=== PATIENT | female | born 1980 | race African-American/Black ===

== ENCOUNTER → 2016-09-11 | Outpatient (CLI) | payer MEDICAID | LOC: WI 08:31 | PROVIDERS: ATTEND Specialist | DX: Z12.31 Encounter for screening mammogram for malignant neoplasm of breast (principal); R92.0 Mammographic microcalcification found on diagnostic imaging of breast; Z85.3 Personal history of malignant neoplasm of breast; Z90.11 Acquired absence of right breast and nipple | CPT/HCPCS: G0202-52 ==

== ENCOUNTER → 2016-09-18 | Outpatient (CLI) | payer MEDICAID | LOC: WI 11:52 | PROVIDERS: ATTEND Specialist | DX: R92.2 Inconclusive mammogram (principal) | CPT/HCPCS: G0204-52 ==

== ENCOUNTER 2016-09-30 04:24 | Emergency (ER) | payer MEDICAID ==
[2016-09-30 04:57] LABS: ABSOLUTE BASOPHILS # (AUTO) 0.1 10^3/uL (0.0-0.2); ABSOLUTE EOSINOPHILS # (AUTO) 0.3 10^3/uL (0.0-0.6); ABSOLUTE LYMPHOCYTES (AUTO) 2.5 10^3/uL (0.5-4.7); ABSOLUTE NEUT (AUTO) 5.1 10^3/uL (1.7-8.2); BASOPHILS % (AUTO) 0.8 % (0-2); EOSINOPHILS % (AUTO) 2.8 % (0-6); HEMATOCRIT 38.7 % (36.0-47.0); HEMOGLOBIN 13.1 g/dL (12.0-15.5); HGB HCT DIFFERENCE 0.6; LYMPHOCYTES % (AUTO) 27.9 % (13-45); MEAN CORPUSCULAR HEMOGLOBIN 32.5 pg (27.0-33.4); MEAN CORPUSCULAR HGB CONC 33.9 g/dL (32.0-36.0); MEAN CORPUSCULAR VOLUME 96 fl (80-97); MONOCYTES % (AUTO) 11.2 % (3-13); RED BLOOD COUNT 4.04 10^6/uL (3.72-5.28); RED CELL DISTRIBUTION WIDTH 13.9 % (11.5-14.0); SEGMENTED NEUTROPHILS % (AUTO) 57.3 % (42-78); WHITE BLOOD COUNT 8.9 10^3/uL (4.0-10.5)
[2016-09-30 05:12] LABS: ALANINE AMINOTRANSFERASE 31 U/L (9-52); ALBUMIN 4.1 g/dL (3.5-5.0); ALKALINE PHOSPHATASE 62 U/L (38-126); ANION GAP 14 (5-19); ASPARTATE AMINO TRANSFERASE 25 U/L (14-36); BILIRUBIN,DIRECT 0.1 mg/dL (0.0-0.4); BILIRUBIN,TOTAL 0.5 mg/dL (0.2-1.3); BLOOD UREA NITROGEN 11 mg/dL (7-20); CALCIUM 9.4 mg/dL (8.4-10.2); CARBON DIOXIDE 21 mmol/L (22-30); CHLORIDE 108 mmol/L (98-107); CREATININE RESULT 0.68 mg/dL (0.52-1.25); GLUCOSE 111 mg/dL (75-110); POTASSIUM 4.3 mmol/L (3.6-5.0); SODIUM 142.7 mmol/L (137-145)
[2016-09-30 05:18] LABS: PROTHROMBIN TIME 13.4 SEC (11.4-15.4)
[2016-09-30 05:55] LABS: APPEARANCE,URINE SLIGHTLY-CLOUDY; BILIRUBIN,URINE NEGATIVE (NEGATIVE); GLUCOSE, URINE NEGATIVE (NEGATIVE); KETONES,URINE NEGATIVE (NEGATIVE); LEUKOCYTE ESTERASE,URINE MODERATE (NEGATIVE); NITRITE,URINE NEGATIVE (NEGATIVE); PROTEIN,URINE NEGATIVE (NEGATIVE); URINE SPECIFIC GRAVITY 1.029
[2016-09-30] MEDS ORDERED: HYDROMORPHONE HCL INJ/PF 2 MG/ML AMPULE IV ONE (06:13)
[2016-09-30] MEDS ORDERED: ONDANSETRON HCL INJ/PF 4 MG/2 ML SDV IV ONE ×2 (06:14→07:34)
--- NOTE | 2016-09-30 06:15 | ER Document Report ---
ED Syncope and Near Syncope - General Mode of Arrival: Ambulatory Information source: Patient TRAVEL OUTSIDE OF THE [place] IN LAST 30 DAYS: No - HPI Patient complains to provider of: Fainting Episode witnessed (by whom): No Symptoms prior to episode: Headache Similar symptoms previously: No Recently seen / treated by doctor: No <TAMMIE RUTHERFORD - Last Filed: 09/30/16 14:17> <ERIKA TIRADOMY - Last Filed: 10/01/16 05:24> - General Chief Complaint: Passed Out Prior to Arrival Stated Complaint: HEADACHE, POSSIBLE SYNCOPE Time Seen by Provider: 09/30/16 05:58 Notes: Patient is a 36 year old female presenting to the ED for headache, blurry vision , and syncopal event. Patient states she has had a headache for 2 days. Patient states her headache came on all of a sudden and has been constant. Patient has taken Excedrin with no relief. Patient states she used to get headaches only during chemo for her breast cancer; this current headache is way worse than those or any previous headache and patient's last chemo treatment was in 2012. Patient also has had some blurry vision, photophobia, and nausea; patient's pain is in the top and front of her head. Patient also had a possible syncopal event this morning. Patient got out of bed this morning and states she doesn't remember much more. Patient's states he found her on the floor in the bed room, 1 hour prior to arrival, and does not know how long she was down. Patient states she does not recall this event. Patient's also states that she was not acting herself and "didn't remember who he was" at one point. Patient does not recall this event either. Patient has 2 aunts that from aneurysms in their 20s and 30s. Patient also has a family history of a tumor. (TAMMIE RUTHERFORD) - Related Data Allergies/Adverse Reactions: Adhesive Bandage * [Adhesive Bandage] Allergy (Mild, Verified 05/21/16 09:48) Generalized rash adhesive tape [Adhesive Tape] Allergy (Mild, Verified 05/21/16 09:48) Generalized rash Past Medical History - General Information source: Patient - Social History Smoking Status: Unknown if Ever Smoked Chew tobacco use (# tins/day): No Frequency of alcohol use: None Drug Abuse: None Family History: None Patient has suicidal ideation: No Patient has homicidal ideation: No Pulmonary Medical History: Reports: Hx Asthma - TEENAGER Malignancy Medical History: Reports: Hx Breast Cancer - right, had mastectomy, last mammogram 1 year ago in left breast, neg GI Medical History: Reports: Hx Gastroesophageal Reflux Disease Musculoskeltal Medical History: Reports Hx Fibromyalgia Past Surgical History: Reports: Hx Section - x2, Hx Cholecystectomy, Hx Mastectomy - Right right mastectomy with axillary node dissection, Hx Tonsillectomy, Hx Tubal Ligation, Hx Vascular Surgery - Left chest wall port - Immunizations Hx Diphtheria, Pertussis, Tetanus Vaccination: Yes Hx Pneumococcal Vaccination: 04/30/13 <TAMMIE RUTHERFORD - Last Filed: 09/30/16 14:17> Review of Systems - Review of Systems Constitutional: No symptoms reported EENT: See HPI, Blurred vision Cardiovascular: No symptoms reported Respiratory: No symptoms reported Gastrointestinal: See HPI, Nausea Genitourinary: No symptoms reported Female Genitourinary: No symptoms reported Musculoskeletal: No symptoms reported Skin: No symptoms reported Hematologic/Lymphatic: No symptoms reported Neurological/Psychological: See HPI, Headaches -: Yes All other systems reviewed and negative <TAMMIE RUTHERFORD - Last Filed: 09/30/16 14:17> Physical Exam - Vital signs Interpretation: Normal - General General appearance: Alert, Other - patient is holding her head and writhing around In distress: Mild - HEENT Head: Normocephalic, Atraumatic Eyes: Normal Conjunctiva: Normal Cornea: Normal Eyelashes: Normal Pupils: PERRL Mucous membranes: Moist Neck: Normal - and non tender - Respiratory Respiratory status: No respiratory distress Chest status: Nontender Breath sounds: Normal Chest palpation: Normal - Cardiovascular Rhythm: Regular Heart sounds: Normal auscultation Murmur: No - Abdominal Inspection: Normal Distension: No distension Bowel sounds: Normal Tenderness: Nontender Organomegaly: No organomegaly - Back Back: Normal, Nontender - Extremities General upper extremity: Normal inspection, Normal ROM, Normal strength General lower extremity: Normal inspection, Normal ROM, Normal strength - Neurological Neuro grossly intact: Yes Cognition: Normal Orientation: AAOx4 [place] Coma Scale Eye Opening: Spontaneous [place] Coma Scale Verbal: Oriented [place] Coma Scale Motor: Obeys Commands [place] Coma Scale Total: 15 Speech: Normal - Psychological Associated symptoms: Normal affect, Normal mood - Skin Skin Temperature: Warm Skin Moisture: Dry <TAMMIE RUTHERFORD - Last Filed: 09/30/16 14:17> Course - Laboratory Result Diagrams: 09/30/16 04:45 09/30/16 04:45 - Consults [facility] transfer line Time consulted: 07:47 Dr. Cooper Time consulted: 07:58 [facility] Time consulted: 08:07 Consulted provider: will come to ER <TAMMIE RUTHERFORD - Last Filed: 09/30/16 14:17> - Laboratory Result Diagrams: 09/30/16 04:45 09/30/16 04:45 <LENNOX TIRADO - Last Filed: 10/01/16 05:24> - Re-evaluation Re-evalutation: 09/30/16 08:15 Patient presents emergency Department chief complaint worse headache of her life onset 2 days ago progressively worse woke her up in the middle of night she is holding her head and writhing around says her vision is blurred does not have a history of headaches in the past. She has 2 aunts of brain aneurysms in their 20s. Also states that there is some sort of a tumor that runs in her family as well. She has a profound photophobia and had a syncopal event associated with this. She's been having intermittent syncopal events since 2011 but never associated with a headache. She denies any chest pain shortness of breath on examination significant amount of pain no neurological deficits speech is intact. Blood pressure is normotensive. Mediate concerns for subarachnoid hemorrhage especially given the fact that her headache has been going on for greater than 2 days which increases your risk of not seeing on the CT scan. Consent obtained for medicating her for lumbar puncture explaining the risks and benefits. CT was negative lumbar puncture was performed talked to the ground lab personally said she has to run immediately can take an hour. At this point given my concerns of ruptured aneurysm and family history I called the neurosurgeon at [facility] Dr. Cooper told him my concerns. We tried to send her by helicopter with helicopters are not flying we: Local EMS service they said they couldn't get a truck here till 9:30 I called [facility] and asked him to take a truck at a service and they said they would be here right away. Patient did not get improvement with Dilaudid the got some improvement with the fentanyl. Still describes severe headache but it's definitely improved no persistent neurological deficits able to maintain her own airway and is conversing right now no need for emergent intubation. 09/30/16 08:35 Transport team has arrived and patient is stable for transport headache is improved no airway compromise ongoing concerns we have not received the LP back yet ongoing concerns for aneurysm patient transferred to the neurosurgeon unit. 10/01/16 05:23 (LENNOX TIRADO) - Vital Signs Vital signs: Temp Pulse Resp BP Pulse Ox 98.7 F 72 19 108/82 100 09/30/16 08:35 09/30/16 04:30 09/30/16 08:21 09/30/16 08:21 09/30/16 04:30 - Laboratory Laboratory results interpreted by me: 09/30/16 09/30/16 09/30/16 04:45 05:29 07:40 Chloride 108 H Carbon Dioxide 21 L Glucose 111 H Urine Urobilinogen 2.0 H Ur Leukocyte Esterase MODERATE H CSF WBC 6 H CSF RBC 1537 H - Consults [facility] transfer line Reason for consultation: 09/30/16 07:47 Contacted [facility] transfer center to speak with neurology about patient. They will call back. (TAMMIE RUTHERFORD) Dr. Cooper Reason for consultation: 09/30/16 07:58 [facility] called back; Dr. Randall Cooper accepted the patient for transfer to [facility] neurology. (TAMMIE RUTHERFORD) [facility] Reason for consultation: 09/30/16 08:07 Contacted [facility] to see if they could transport patient to [facility]; transport would not be available until at a later time. Spoke to Da who states that a team would arrive soon to the ED to transport patient to [facility]. (TAMMIE RUTHERFORD) Procedures - Lumbar Puncture Lumbar puncture Time completed: 07:42 Consent obtained: Yes Lumbar puncture pre-procedure: Betadine prep applied, Sterile drapes applied Patient position: Sitting Lumbar puncture location: L4-L5 innerspace Anesthetic type: 1% Lidocaine mL's of anesthetic: 10 Amount/type of drainage: 10 mL per tube, 4 tubes, clear colorless fluids Number of attempts: 1 Complications: No <TAMMIE RUTHERFORD - Last Filed: 09/30/16 14:17> Critical Care Note - Critical Care Note Total time excluding time spent on procedures (mins): 65 <LENNOX TIRADO - Last Filed: 10/01/16 05:24> Discharge <TAMMIE RUTHERFORD - Last Filed: 09/30/16 14:17> <LENNOX TIRADO - Last Filed: 10/01/16 05:24> - Discharge Clinical Impression: acute onset worst headache of life Syncope Qualifiers: Syncope type: unspecified Qualified Code(s): R55 - Syncope and collapse Condition: Stable Disposition: [facility] Referrals: ANDRA CASTELLON MD [Primary Care Provider] - Follow up as needed Scribe Attestation: 09/30/16 08:20 I personally performed the services described in the documentation reviewed the documentation recorded by my scribe in my presence and it accurately and completely records my words and actions (LENNOX TIRADO) Scribe Documentation - Scribe Written by Scribe:: Tammie Rutherford 09/30/16 7:50 acting as scribe for :: Abrahan <TAMMIE RUTHERFORD - Last Filed: 09/30/16 14:17>
[2016-09-30] MEDS ORDERED: FENTANYL CITRATE INJ/PF 100 MCG/2 ML AMPUL IV ONE ×2 (07:27→07:42)
[2016-09-30] MEDS ORDERED: ONDANSETRON HCL INJ/PF 4 MG/2 ML SDV ONE (07:36)
[2016-09-30] MEDS ORDERED: FENTANYL CITRATE INJ/PF 100 MCG/2 ML AMPUL ONE (07:43)
[2016-09-30] MEDS ORDERED: METHYLPREDNISOLONE INJ 125 MG/2 ML SDV IV ONE (08:03)
[2016-09-30 08:23] LABS: RBC AVERAGE 307.5; RBC DILUENT USED NONE USED; RBC DILUTION FACTOR 1; RBC SIDE 1 307; RBC SIDE 2 308; TOTAL RBC SQUARES COUNTED 50
[2016-09-30 08:34] VITALS: BP 108/82
[2016-09-30 08:35] LABS: APPEARANCE TUBE 1 SLIGHTLY HAZY; APPEARANCE TUBE 2 CLEAR; APPEARANCE TUBE 3 CLEAR
[2016-09-30 08:36] LABS: WHITE BLOOD CELL,CSF 6 /uL (0-5)
[2016-09-30 08:51] LABS: APPEARANCE TUBE 1 SLIGHTLY HAZY; APPEARANCE TUBE 2 CLEAR; APPEARANCE TUBE 3 CLEAR; RBC AVERAGE 6.5; RBC DILUENT USED NONE USED; RBC DILUTION FACTOR 1; RBC SIDE 1 7; RBC SIDE 2 6; TOTAL RBC SQUARES COUNTED 225
[2016-09-30 08:52] LABS: WHITE BLOOD CELL,CSF 2 /uL (0-5)
--- NOTE | 2016-09-30 16:55 | EKG REPORT ---
SEVERITY:- NORMAL ECG - SINUS RHYTHM : Confirmed by: Robina Chavez MD 30-Sep-2016 16:54:23
== END 2016-09-30 08:43 | disposition short-term general hospital (02) ==
LOC: ER 04:24
PROC: 009U3ZX Drainage of Spinal Canal, Percutaneous Approach, Diagnostic (ICD-10-PCS; principal; 2016-09-30)
DX: R55 Syncope and collapse (principal); R51 Headache
CPT/HCPCS: 93005; 96376; 99291; 96374; 96375; 36415; 85025; 85610; 89050; 81025; 80053; 81001; 70450; 93010; 62270; J3010; J2930; J1170; J2405

== ENCOUNTER → 2016-10-18 | Day surgery (SDC) | payer MEDICAID ==
[~2016-10-18] MED LIST: LIDOCAINE 1%/EPINEPHRINE INJ 20 ML VIAL ONE
--- NOTE | 2016-10-18 10:53 | Operative Report ---
Operative Report DATE OF SURGERY: 10/18/16 PREOPERATIVE DIAGNOSIS: Cluster microcalcifications outer lower quadrant left breast; history of contralateral breast cancer POSTOPERATIVE DIAGNOSIS: Same OPERATION: 1. Stereotactically directed incision myotomy core biopsies lower outer quadrant left breast. 2. Placement of clip marker left breast. 3. Interpretation of digital mammography and specimen radiograph SURGEON: ZHOU ASNDERS ANESTHESIA: Local TISSUE REMOVED OR ALTERED: Multiple cores left breast COMPLICATIONS: none ESTIMATED BLOOD LOSS: scant INTRAOPERATIVE FINDINGS: See below PROCEDURE: The patient was taken to the stereotactic room and radiology department and also more hospital with a left breast was placed in compression. The target cluster of microcalcifications was identified using a caudocranial approach. Surgical plan and surgical timeout were conducted. Surface of the left breast was prepped and draped with chlorhexidine. Skin was anesthetized with 1% lidocaine without epinephrine. A mammotomy was made with 11 blade and mammotome advanced to the appropriate depth using +15 and -15 stereotactic views. We then deployed the locking device, and repeated the mammograms. The mammotome was in appropriate proximity to the target tissue. We Obtain approximately 10 cores in a circumferential fashion. Cores were placed on a last dictation photographed with the portable digital radio graphic machine which confirmed acquisition of the target microcalcifications. We then deployed a clip marker into the cavity after removal of the mammotome. Postbiopsy imaging of the breast confirmed appropriate clip deployment in the biopsy cavity. Introducer sheath was removed from the left breast, breast placed into compression Discharge instructions provided. Postop procedure well.
--- NOTE | 2016-10-18 10:55 | PDOC DISCHARGE SUMMARY ---
Discharge Summary (SDC) - Discharge Final Diagnosis: Microcalcifications left breast Date of Surgery: 10/18/16 Discharge Date: 10/18/16 Condition: Good Treatment or Instructions: 1. Written instructions provided to the patient 2. Patient to take Tylenol or Motrin when necessary pain 3. Patient to follow-up with also surgical clinic in approximately 1-2 weeks. Discharge Diet: As Tolerated Discharge Activity: Activity As Tolerated Home Care Assistance: None Needed Report the Following to Your Physician Immediately: Shortness of Breath, Increase in Pain, Fever over 101 Degrees
== END ==
LOC: RAD 08:47
PROVIDERS: ATTEND Surgery
PROC: 0HBU3ZX Excision of Left Breast, Percutaneous Approach, Diagnostic (ICD-10-PCS; principal; 2016-10-18)
DX: R92.0 Mammographic microcalcification found on diagnostic imaging of breast (principal); M79.7 Fibromyalgia; Z87.891 Personal history of nicotine dependence; Z79.899 Other long term (current) drug therapy; Z85.3 Personal history of malignant neoplasm of breast
CPT/HCPCS: 88305 ×2; 88342; 19081; J3490

== ENCOUNTER 2017-01-11 05:20 | Emergency (ER) | payer MEDICAID ==
[2017-01-11] MEDS ORDERED: IPRATROPIUM/ALBUTEROL 0.5-2.5 MG/3 ML AMPUL NEB ONE (05:35)
[2017-01-11] MEDS ORDERED: ALBUTEROL SULFATE 0.083% NEB 2.5 MG/3 ML AMPUL NEB SCH (05:50)
[2017-01-11 05:59] LABS: ABSOLUTE BASOPHILS # (AUTO) 0.1 10^3/uL (0.0-0.2); ABSOLUTE EOSINOPHILS # (AUTO) 0.2 10^3/uL (0.0-0.6); ABSOLUTE MONOCYTES (AUTO) 1.1 10^3/uL (0.1-1.4); ABSOLUTE NEUT (AUTO) 5.4 10^3/uL (1.7-8.2); BASOPHILS % (AUTO) 1.1 % (0-2); EOSINOPHILS % (AUTO) 2.1 % (0-6); HEMOGLOBIN 12.9 g/dL (12.0-15.5); HGB HCT DIFFERENCE 0.7; MEAN CORPUSCULAR HEMOGLOBIN 32.6 pg (27.0-33.4); MEAN CORPUSCULAR VOLUME 96 fl (80-97); MONOCYTES % (AUTO) 11.1 % (3-13); RED BLOOD COUNT 3.96 10^6/uL (3.72-5.28); RED CELL DISTRIBUTION WIDTH 13.6 % (11.5-14.0); SEGMENTED NEUTROPHILS % (AUTO) 54.7 % (42-78); WHITE BLOOD COUNT 9.8 10^3/uL (4.0-10.5)
[2017-01-11 06:16] LABS: ALANINE AMINOTRANSFERASE 27 U/L (9-52); ALBUMIN 3.6 g/dL (3.5-5.0); ALKALINE PHOSPHATASE 60 U/L (38-126); ANION GAP 11 (5-19); ASPARTATE AMINO TRANSFERASE 18 U/L (14-36); BILIRUBIN,DIRECT 0.2 mg/dL (0.0-0.4); BILIRUBIN,TOTAL 0.5 mg/dL (0.2-1.3); BLOOD UREA NITROGEN 7 mg/dL (7-20); CALCIUM 8.9 mg/dL (8.4-10.2); CARBON DIOXIDE 21 mmol/L (22-30); CHLORIDE 110 mmol/L (98-107); CREATINE KINASE 211 U/L (30-135); GLUCOSE 95 mg/dL (75-110); POTASSIUM 4.2 mmol/L (3.6-5.0); SODIUM 142.1 mmol/L (137-145); TOTAL PROTEIN 6.7 g/dL (6.3-8.2)
--- NOTE | 2017-01-11 06:24 | RADIOLOGY REPORT (SQ) ---
EXAM DESCRIPTION: CHEST SINGLE VIEW COMPLETED DATE/TIME: 01/11/2017 6:12 am REASON FOR STUDY: SOB/CP COMPARISON: 03/23/2016. EXAM PARAMETERS: NUMBER OF VIEWS: One view. TECHNIQUE: Single frontal radiographic view of the chest acquired. RADIATION DOSE: NA LIMITATIONS: None. FINDINGS: LUNGS AND PLEURA: No opacities, masses or pneumothorax. No pleural effusion. MEDIASTINUM AND HILAR STRUCTURES: No masses. Contour normal. HEART AND VASCULAR STRUCTURES: Heart normal in size. Normal vasculature. BONES: No acute findings. HARDWARE: None in the chest. OTHER: No other significant finding. IMPRESSION: NO ACUTE RADIOGRAPHIC FINDING IN THE CHEST. TECHNICAL DOCUMENTATION: JOB ID: [id number]
[2017-01-11 06:27] LABS: CREATINE KINASE MB 0.66 ng/mL (<4.55); TROPONIN I < 0.012 ng/mL
[2017-01-11] MEDS ORDERED: LIDOCAINE 2% VISCOUS SOLN 20 ML UDCUP PO ONE (07:15)
[2017-01-11] MEDS ORDERED: METOCLOPRAMIDE HCL ORAL SOLN 10 MG/10 ML UDCUP PO ONE (07:15)
[2017-01-11] MEDS ORDERED: MAG HYDROX/AL HYDROX/SIMETH SUSP 30 ML UDCUP PO ONE (07:15)
--- NOTE | 2017-01-11 08:10 | EKG REPORT ---
SEVERITY:- BORDERLINE ECG - SINUS RHYTHM PROBABLE LEFT ATRIAL ABNORMALITY : Confirmed by: Lakhwinder George MD 11-Jan-2017 08:09:22
--- NOTE | 2017-01-11 08:58 | RADIOLOGY REPORT (SQ) ---
EXAM DESCRIPTION: CTA CHEST COMPLETED DATE/TIME: 01/11/2017 8:32 am REASON FOR STUDY: elevated dimer COMPARISON: CT chest exams 11/30/2015, 07/28/2014, 03/23/2013, 10/16/2011, 12/28/2011 TECHNIQUE: CT scan of the chest performed using helical scanning technique with dynamic intravenous contrast injection. Images reviewed with lung, soft tissue and bone windows. Reconstructed coronal and sagittal MPR images reviewed. Additional 3 dimensional post-processing performed to develop Maximal Intensity Projection images (AR P). All images stored on PACS. All CT scanners at this facility use dose modulation, iterative reconstruction, and/or weight based d osing when appropriate to reduce radiation dose to as low as reasonably achievable (ALARA). [facility]: Dose Right [facility]: CareDose [facility]: Dose Right [facility]: Teradose 4D [facility]: [employer] CONTRAST TYPE AND DOSE: 78 mL Isovue 370- low osmolar. RENAL FUNCTION: Creatinine 0.7 RADIATION DOSE: Up-to-date CT equipment and radiation dose reduction techniques were employed. CTDIv ol: 15.4 - 29.8 mGy. DLP: 596 mGy-cm. . LIMITATIONS: None. FINDINGS: LUNGS AND PLEURA: There are too numerous to count pulmonary nodules worrisome for metastat ic disease. Largest nodules on the right side are as follows: 1.6 x 0.9 cm pleural-based nodule right posterior lung apex axial image 16 1.3 cm nodule right lung apex axial image 12 9 mm nodule posterior right lung base axial image 83 Largest nodules on the left side are as follows: 1.3 x 0.8 cm superior segment left lower lobe adjacent to the major fissure axial image 40 1.8 x 1 cm lingular nodule adjacent to the cardiac apex axial image 72 1 cm left lower lobe nodule axial image 74 1 cm left lower lobe nodule axial image 77. No pneumothorax. No pleural effusions. No dense consolidation worrisome for acute pneumonia. AORTA AND GREAT VESSELS: No aneurysm or dissection. HEART: No pericardial effusion. PULMONARY ARTERIES: No emboli visualized in the main pulmonary arteries or the segmental branches. HILAR AND MEDIASTINAL STRUCTURES: No identified masses or abnormal nodes. HARDWARE: Right mastectomy with breast implant. Clips right upper quadrant post cholecystectomy UPPER ABDOMEN: Right upper quadrant clips post cholecystectomy THYROID AND OTHER SOFT TISSUES: No masses. No adenopathy. BONES: No acute or significant finding. 3D MIPS: Confirm above findings. OTHER: No other significant finding. IMPRESSION: No CT angio evidence of pulmonary emboli. Multiple pulmonary nodules worrisome for metastatic disease given history of breast cancer TECHNICAL DOCUMENTATION: JOB ID: [id number] Quality ID # [id number]: Final reports with documentation of one or more dose reduction techniques (e.g., Au tomated exposure control, adjustment of the mA and/or kV according to patient size, use of iterative reconstruction technique) 2010 [employer]- All Rights Reserved
[2017-01-11 12:17] VITALS: BP 126/86
--- NOTE | 2017-01-11 12:17 | ER Document Report ---
ED General - General Chief Complaint: Chest Pain Stated Complaint: CHEST PAIN Time Seen by Provider: 01/11/17 06:10 TRAVEL OUTSIDE OF THE [place] IN LAST 30 DAYS: No - HPI Patient complains to provider of: Chest pain shortness of breath Notes: Patient coming in with a history of breast cancer cancer free since 2012 states ongoing for the last 2 weeks cough chest pressure chest pain along with shortness of breath. Denies any recent travel. Patient denies any fevers chills nausea vomiting patient otherwise states she just feels unwell. Patient looks to be in no distress upon my evaluation. - Related Data Allergies/Adverse Reactions: Adhesive Bandage * [Adhesive Bandage] Allergy (Mild, Verified 05/21/16 09:48) Generalized rash adhesive tape [Adhesive Tape] Allergy (Mild, Verified 05/21/16 09:48) Generalized rash Past Medical History - Social History Smoking Status: Former Smoker Frequency of alcohol use: Social Drug Abuse: None Family History: None Patient has suicidal ideation: No Patient has homicidal ideation: No - Past Medical History Cardiac Medical History: Denies: Hx Coronary Artery Disease, Hx Heart Attack, Hx Hypertension Pulmonary Medical History: Reports: Hx Asthma - TEENAGER Denies: Hx Bronchitis, Hx COPD, Hx Pneumonia, Hx Tuberculosis Neurological Medical History: Denies: Hx Cerebrovascular Accident, Hx Seizures Renal/ Medical History: Denies: Hx Peritoneal Dialysis Malignancy Medical History: Reports: Hx Breast Cancer - right, had mastectomy, last mammogram 1 year ago in left breast, neg GI Medical History: Reports: Hx Gastroesophageal Reflux Disease. Denies: Hx Hiatal Hernia, Hx Ulcer Musculoskeltal Medical History: Denies Hx Arthritis, Reports Hx Fibromyalgia Past Surgical History: Reports: Hx Section - x2, Hx Cholecystectomy, Hx Mastectomy - Right right mastectomy with axillary node dissection, Hx Tonsillectomy, Hx Tubal Ligation, Hx Vascular Surgery - Left chest wall port. Denies: Hx Open Heart Surgery - Immunizations Hx Diphtheria, Pertussis, Tetanus Vaccination: Yes Hx Pneumococcal Vaccination: 04/30/13 Review of Systems - Review of Systems Constitutional: No symptoms reported EENT: No symptoms reported Cardiovascular: No symptoms reported Respiratory: Cough, Short of breath, Wheezing Gastrointestinal: No symptoms reported Genitourinary: No symptoms reported Female Genitourinary: No symptoms reported Musculoskeletal: No symptoms reported Skin: No symptoms reported Hematologic/Lymphatic: No symptoms reported Neurological/Psychological: No symptoms reported -: Yes All other systems reviewed and negative Physical Exam - Vital signs Vitals: Temp Pulse Resp BP Pulse Ox 98.4 F 80 20 111/68 99 01/11/17 05:30 01/11/17 05:30 01/11/17 05:30 01/11/17 05:30 01/11/17 05:30 Interpretation: Normal - General General appearance: Appears well, Alert - HEENT Head: Normocephalic, Atraumatic Eyes: Normal Pupils: PERRL - Respiratory Respiratory status: No respiratory distress Chest status: Nontender Breath sounds: Rhonchi Chest palpation: Normal - Cardiovascular Rhythm: Regular Heart sounds: Normal auscultation Murmur: No - Abdominal Inspection: Normal Distension: No distension Bowel sounds: Normal Tenderness: Nontender Organomegaly: No organomegaly - Back Back: Normal, Nontender - Extremities General upper extremity: Normal inspection, Nontender, Normal color, Normal ROM , Normal temperature General lower extremity: Normal inspection, Nontender, Normal color, Normal ROM , Normal temperature, Normal weight bearing. No: Spring's sign - Neurological Neuro grossly intact: Yes Cognition: Normal Orientation: AAOx4 [place] Coma Scale Eye Opening: Spontaneous [place] Coma Scale Verbal: Oriented [place] Coma Scale Motor: Obeys Commands Cassidy Coma Scale Total: 15 Speech: Normal Motor strength normal: LUE, RUE, LLE, RLE Sensory: Normal - Psychological Associated symptoms: Normal affect, Normal mood - Skin Skin Temperature: Warm Skin Moisture: Dry Skin Color: Normal Course - Re-evaluation Re-evalutation: 01/11/17 14:49 Patient's d-dimer did return elevated CTA was performed showing multiple lung nodules consistent with metastatic disease more likely from the patient's history of breast cancer. I did contact her oncologist . Request a specialized blood testing we did set the patient have a PET scan and follow-up in his office. Patient was given pain medication Percocet 30 tablets patient did not want any more says she does not like taking pain medication otherwise patient is not requiring any intervention from us no signs of hypoxia requiring oxygen pain more likely is not cardiac related to negative troponins with no EKG changes. Patient was discharged home to follow-up with her oncology team. - Vital Signs Vital signs: Temp Pulse Resp BP Pulse Ox 98.4 F 57 L 16 126/86 H 95 01/11/17 05:31 01/11/17 12:17 01/11/17 12:17 01/11/17 12:17 01/11/17 12:17 - Laboratory Result Diagrams: 01/11/17 05:47 01/11/17 05:47 Laboratory results interpreted by me: 01/11/17 01/11/17 05:47 05:47 D-Dimer 0.76 H Chloride 110 H Carbon Dioxide 21 L Creatine Kinase 211 H Discharge - Discharge Clinical Impression: Multiple lung nodules on CT, Chest discomfort Condition: Good Disposition: HOME, SELF-CARE Instructions: Growth or Mass, Pending Workup (OM) Additional Instructions: Your laboratory values today show no signs of infectious process or heart disease. Unfortunately your CAT scan that showed multiple lung nodules concerning etiology of this may be related to your history of breast cancer. I did discuss with who recommends that she have a PET scan which was scheduled for you on the follow-up in his office on the please return to the ER for any other concerning issues worsening of symptoms shortness of breath. Take medication as prescribed. Prescriptions: Ondansetron [Zofran Odt 4 mg Tablet] 1 - 2 tab PO Q4H PRN #30 tab.rapdis PRN Reason: For Nausea/Vomiting Oxycodone HCl/Acetaminophen [Percocet 5-325 mg Tablet] 1 - 2 tab PO Q4H PRN #30 tablet PRN Reason: Forms: Return to Work Referrals: ANDREA HOPPER MD [Primary Care Provider] - Follow up as needed MARTINEZ MORATAYA MD [ACTIVE STAFF] - Follow up as needed
[2017-01-12 10:59] LABS: CA 27.29 116.8 U/mL (0.0-38.6)
== END 2017-01-11 12:23 | disposition home or self-care (01) ==
LOC: ER 05:20
DX: R91.8 Other nonspecific abnormal finding of lung field (principal); Z85.3 Personal history of malignant neoplasm of breast; R07.89 Other chest pain; R05 Cough; R06.02 Shortness of breath; Z87.891 Personal history of nicotine dependence; J45.909 Unspecified asthma, uncomplicated
CPT/HCPCS: 93005; 99285; 36415; 82553; 82550; 84703; 85025; 86300 ×2; 80053; 84484; 85379; 71010; 71275; 93010; J3490 ×3; J7620

== ENCOUNTER → 2017-01-20 | Outpatient (CLI) | payer MEDICAID ==
--- NOTE | 2017-01-21 09:50 | RADIOLOGY REPORT (SQ) ---
EXAM DESCRIPTION: PET CT SKULL/THIGH COMPLETED DATE/TIME: 01/20/2017 6:02 pm REASON FOR STUDY: BREAST CANCER C50.511 MALIG NEOPLM OF LOWER-OUTER QUADRANT OF RIGHT FEMALE COMPARISON: None. RADIONUCLIDE AND DOSE: 12.0 mCi F18 FDG The route of agent administration: Intravenous FASTING BLOOD SUGAR: 78 mg/dl CONTRAST TYPE AND DOSE: No CT contrast given. TECHNIQUE: Blood glucose level was verified. Above dose of FDG was injected intravenously. 2-D seg mented attenuation correction images were obtained from the base of the skull to the midthighs. Nonc ontrast CT images were obtained for attenuation correction and fusion with emission images. CT image s were performed without oral or intravenous contrast and are not sensitive for parenchymal lesions. A series of overlapping emission PET images were obtained. Images reviewed and manipulated at [facility] by the radiologist. Images stored on PACS. LIMITATIONS: None. FINDINGS: HEAD AND NECK: No areas of abnormal metabolic activity in the soft tissues of the head and neck. CHEST: In the right axillary surgical bed, hypermetabolic approximately 1 cm node measuring about 7.6 SUV. Multiple hypermetabolic lesions in the mediastinum and oracio with SUVs in the 7-8.0 range. Mor phologically, the nodules are not well defined and measure at most 1 cm. No qualitative or quantitative significant increased uptake within the recently described multiple pu lmonary nodules. ABDOMEN AND PELVIS: Solitary hypermetabolic focus medial margin of the spleen 5.2- 5.8 SUV without co rresponding morphologic lesion. Hypermetabolic lesion left anterolateral abdominal wall 3.7- 4.4 SUV without corresponding morphologi c lesion. Hypermetabolic dermatologic nodule left flank subcutaneous tissue 2.6- 3.5 SUV. PROXIMAL LOWER EXTREMITIES: No areas of abnormal metabolic activity in the soft tissues of the lower extremities. BONES: No abnormal metabolic activity in the visualized skeleton. ADDITIONAL CT FINDINGS: Stable findings in the chest since 01/11/2017. No other significant findings a bdomen and pelvis. OTHER: No other significant findings. IMPRESSION: Hypermetabolic lesions above and below the diaphragm, and within the surgical bed status post right mastectomy and axillary node dissection. TECHNICAL DOCUMENTATION: JOB ID: [id number] [employer]- All Rights Reserved
== END ==
LOC: RAD 16:00
PROVIDERS: ATTEND Internal Medicine
DX: C50.511 Malignant neoplasm of lower-outer quadrant of right female breast (principal)
CPT/HCPCS: 78815; A9552

== ENCOUNTER 2017-01-22 13:29 | Emergency (ER) | payer MEDICAID ==
[2017-01-22] MEDS ORDERED: NORMAL SALINE 1000 ML 1,000 ML IV PRN (14:05)
[2017-01-22] MEDS ORDERED: ONDANSETRON HCL INJ/PF 4 MG/2 ML SDV IV ONE (14:05)
--- NOTE | 2017-01-22 14:10 | EKG REPORT ---
SEVERITY:- BORDERLINE ECG - SINUS RHYTHM PROBABLE LEFT ATRIAL ABNORMALITY NONSPECIFIC ST-T CHANGES- INFERIOR LEADS : Confirmed by: Lakhwinder George MD 22-Jan-2017 14:09:24
[2017-01-22 14:17] LABS: ABSOLUTE BASOPHILS # (AUTO) 0.1 10^3/uL (0.0-0.2); ABSOLUTE EOSINOPHILS # (AUTO) 0.1 10^3/uL (0.0-0.6); ABSOLUTE LYMPHOCYTES (AUTO) 2.4 10^3/uL (0.5-4.7); ABSOLUTE MONOCYTES (AUTO) 0.6 10^3/uL (0.1-1.4); ABSOLUTE NEUT (AUTO) 5.2 10^3/uL (1.7-8.2); BASOPHILS % (AUTO) 0.7 % (0-2); EOSINOPHILS % (AUTO) 1.6 % (0-6); HEMATOCRIT 37.5 % (36.0-47.0); HEMOGLOBIN 12.8 g/dL (12.0-15.5); HGB HCT DIFFERENCE 0.9; LYMPHOCYTES % (AUTO) 28.3 % (13-45); MEAN CORPUSCULAR HEMOGLOBIN 32.2 pg (27.0-33.4); MEAN CORPUSCULAR VOLUME 95 fl (80-97); MONOCYTES % (AUTO) 7.3 % (3-13); RED BLOOD COUNT 3.96 10^6/uL (3.72-5.28); RED CELL DISTRIBUTION WIDTH 13.5 % (11.5-14.0); SEGMENTED NEUTROPHILS % (AUTO) 62.1 % (42-78); WHITE BLOOD COUNT 8.4 10^3/uL (4.0-10.5)
[2017-01-22] MEDS ORDERED: METHYLPREDNISOLONE INJ 125 MG/2 ML SDV IV ONE (14:20)
--- NOTE | 2017-01-22 14:31 | ER Document Report ---
ED General - General Chief Complaint: Chest Pain > 30 Stated Complaint: LEFT SIDE PAIN Time Seen by Provider: 01/22/17 13:39 Mode of Arrival: Stretcher Information source: Patient TRAVEL OUTSIDE OF THE [place] IN LAST 30 DAYS: No - HPI Patient complains to provider of: Chest Pain Onset: Other - 3-4 days Onset/Duration: Gradual Quality of pain: Achy, Pressure Severity: Moderate Pain Level: 4 Associated symptoms: Body/muscle aches Exacerbated by: Movement, Coughing, Deep breathing Relieved by: Denies Similar symptoms previously: Yes Recently seen / treated by doctor: Yes Notes: Patient is a 36-year-old female with a history of breast cancer that was diagnosed in 2011, she had a right-sided mastectomy and underwent several rounds of chemotherapy, patient was seen earlier this month in this department after having a syncopal episode, she had a CTA performed which showed multiple pulmonary nodules consistent with metastatic cancer, since then she has been seen by her oncologist and had a PET scan that confirmed these nodules as well above and below the diaphragm, she has not yet started any treatment - Related Data Allergies/Adverse Reactions: Adhesive Bandage * [Adhesive Bandage] Allergy (Mild, Verified 05/21/16 09:48) Generalized rash adhesive tape [Adhesive Tape] Allergy (Mild, Verified 05/21/16 09:48) Generalized rash Past Medical History - General Information source: Patient - Social History Smoking Status: Never Smoker Family History: None - Past Medical History Cardiac Medical History: Denies: Hx Coronary Artery Disease, Hx Heart Attack, Hx Hypertension Pulmonary Medical History: Reports: Hx Asthma - TEENAGER Denies: Hx Bronchitis, Hx COPD, Hx Pneumonia, Hx Tuberculosis Neurological Medical History: Denies: Hx Cerebrovascular Accident, Hx Seizures Renal/ Medical History: Denies: Hx Peritoneal Dialysis Malignancy Medical History: Reports: Hx Breast Cancer - right, had mastectomy, last mammogram 1 year ago in left breast, neg GI Medical History: Reports: Hx Gastroesophageal Reflux Disease. Denies: Hx Hiatal Hernia, Hx Ulcer Musculoskeltal Medical History: Denies Hx Arthritis, Reports Hx Fibromyalgia Past Surgical History: Reports: Hx Section - x2, Hx Cholecystectomy, Hx Mastectomy - Right right mastectomy with axillary node dissection, Hx Tonsillectomy, Hx Tubal Ligation, Hx Vascular Surgery - Left chest wall port. Denies: Hx Open Heart Surgery - Immunizations Hx Diphtheria, Pertussis, Tetanus Vaccination: Yes Hx Pneumococcal Vaccination: 04/30/13 Review of Systems - Review of Systems Constitutional: No symptoms reported EENT: No symptoms reported Cardiovascular: See HPI Respiratory: See HPI Gastrointestinal: No symptoms reported Genitourinary: No symptoms reported Female Genitourinary: No symptoms reported Musculoskeletal: No symptoms reported Skin: No symptoms reported Hematologic/Lymphatic: No symptoms reported Neurological/Psychological: No symptoms reported -: Yes All other systems reviewed and negative Physical Exam - Vital signs Vitals: Temp Pulse Resp BP Pulse Ox 97.7 F 53 L 16 125/78 97 01/22/17 13:38 01/22/17 13:38 01/22/17 13:38 01/22/17 13:38 01/22/17 13:38 Interpretation: Normal - General General appearance: Appears well, Alert - HEENT Head: Normocephalic, Atraumatic Eyes: Normal Pupils: PERRL - Respiratory Respiratory status: Tachypnea Chest status: Nontender Breath sounds: Normal Chest palpation: Normal - Cardiovascular Rhythm: Regular Heart sounds: Normal auscultation Murmur: No - Abdominal Inspection: Normal Distension: No distension Bowel sounds: Normal Tenderness: Nontender Organomegaly: No organomegaly - Back Back: Normal, Nontender - Extremities General upper extremity: Normal inspection, Nontender, Normal color, Normal ROM , Normal temperature General lower extremity: Normal inspection, Nontender, Normal color, Normal ROM , Normal temperature, Normal weight bearing. No: Spring's sign - Neurological Neuro grossly intact: Yes Cognition: Normal Orientation: AAOx4 [place] Coma Scale Eye Opening: Spontaneous [place] Coma Scale Verbal: Oriented [place] Coma Scale Motor: Obeys Commands [place] Coma Scale Total: 15 Speech: Normal Motor strength normal: LUE, RUE, LLE, RLE Sensory: Normal - Psychological Associated symptoms: Normal affect, Normal mood - Skin Skin Temperature: Warm Skin Moisture: Dry Skin Color: Normal Course - Re-evaluation Re-evalutation: 01/22/17 15:44 Discussed with oncologist, Dr. Ahn, who recommends patient be transferred to tertiary care center for diagnostic bronchoscopy as he feels that her mediastinal hilar nodes, that could be causing compression, he suggested patient be transferred where a diagnostic bronchoscopy could be performed call to [facility], spoke with Davina, requested callback from hospitalist service or stage set designer 01/22/17 16:02 Was discussed with stage set designer in [place], Dr. Earl Rascon, who recommended patient come to his office as an outpatient tomorrow to have a bronchoscopy performed as there is currently a waiting list to get transferred to the hospital, he will have his nurse navigator call back shortly to arrange for patient appointment, this plan was discussed with patient who is in agreement 01/22/17 16:31 Patient was discussed with Dr. Ahn, again, reported the plan for patient to have an outpatient bronchoscopy at 1:00 in the afternoon, he is in agreement with this plan as well, and patient be discharged with a Medrol Dosepak - Vital Signs Vital signs: Temp Pulse Resp BP Pulse Ox 98 F 53 L 23 H 108/83 97 01/22/17 17:10 01/22/17 13:38 01/22/17 17:01 01/22/17 17:01 01/22/17 17:01 - Laboratory Result Diagrams: 01/22/17 13:55 01/22/17 13:55 Laboratory results interpreted by me: 01/22/17 13:55 BUN 6 L Creatine Kinase 197 H - EKG Interpretation by [place] EKG shows normal: Sinus rhythm Rate: Bradycardia Discharge - Discharge Clinical Impression: Metastatic breast cancer Chest pain Qualifiers: Chest pain type: unspecified Qualified Code(s): R07.9 - Chest pain, unspecified Condition: Stable Disposition: HOME, SELF-CARE Instructions: Chest Wall Pain ([facility]) Additional Instructions: Follow-up with Dr. Earl rascon tomorrow afternoon as scheduled for an outpatient bronchoscopy. The information has been provided to you in separate paperwork. Follow-up with your primary care provider and oncologist within the next week. Return to the emergency room immediately if symptoms worsen or any additional concerns. Prescriptions: Diazepam [Valium 5 mg Tablet] 5 mg PO QIDP PRN #30 tablet PRN Reason: Methylprednisolone [Medrol Dosepack (4 mg/Tab) 21 Tab/Dosepak] 4 mg PO ASDIR PRN #21 tab.ds.pk PRN Reason: Referrals: ANDREA HOPPER MD [Primary Care Provider] - Follow up as needed
[2017-01-22] MEDS ORDERED: DIAZEPAM INJ 10 MG/2 ML DISP.SYRIN IV ONE ×2 (14:41→17:00)
[2017-01-22 14:46] LABS: ALANINE AMINOTRANSFERASE 31 U/L (9-52); ALBUMIN 4.2 g/dL (3.5-5.0); ALKALINE PHOSPHATASE 73 U/L (38-126); ANION GAP 8 (5-19); ASPARTATE AMINO TRANSFERASE 29 U/L (14-36); BILIRUBIN,DIRECT 0.4 mg/dL (0.0-0.4); BILIRUBIN,TOTAL 0.7 mg/dL (0.2-1.3); BLOOD UREA NITROGEN 6 mg/dL (7-20); CALCIUM 9.5 mg/dL (8.4-10.2); CARBON DIOXIDE 26 mmol/L (22-30); CHLORIDE 105 mmol/L (98-107); CREATINE KINASE 197 U/L (30-135); CREATININE RESULT 0.71 mg/dL (0.52-1.25); GLUCOSE 91 mg/dL (75-110); SODIUM 139.1 mmol/L (137-145); TOTAL PROTEIN 7.7 g/dL (6.3-8.2)
[2017-01-22 14:57] LABS: CREATINE KINASE MB 0.73 ng/mL (<4.55)
[2017-01-22 14:59] LABS: TROPONIN I < 0.012 ng/mL
[2017-01-22 17:04] VITALS: BP 108/83
== END 2017-01-22 17:10 | disposition home or self-care (01) ==
LOC: ER 13:29
DX: R07.9 Chest pain, unspecified (principal); M79.1 Myalgia; R05 Cough; Z85.3 Personal history of malignant neoplasm of breast; C77.9 Secondary and unspecified malignant neoplasm of lymph node, unspecified; Z90.49 Acquired absence of other specified parts of digestive tract; Z98.51 Tubal ligation status
CPT/HCPCS: 93005; 96376; 99285; 96361; 96374; 96375; 36415; 82553; 82550; 85025; 80053; 84484; 93010; J3360; J2930; J2405; J7030

== ENCOUNTER 2017-02-13 11:33 | Emergency (ER) | payer MEDICAID ==
[2017-02-13] MEDS ORDERED: METOCLOPRAMIDE HCL INJ/PF 10 MG/2 ML SDV IV ONE (11:47)
[2017-02-13] MEDS ORDERED: NORMAL SALINE 1000 ML 1,000 ML IV PRN (11:47)
[2017-02-13] MEDS ORDERED: MORPHINE SULFATE 10 MG/ML INJ IV ONE ×2 (11:47→14:07)
--- NOTE | 2017-02-13 11:49 | ER Document Report ---
ED Medical Screen (RME) - General Chief Complaint: Abdominal Pain Stated Complaint: DIFFICULTY URINARY Time Seen by Provider: 02/13/17 11:47 Notes: Patient has a history of metastatic breast cancer. She is currently receiving chemotherapy. She states that she is vomiting and has not had a bowel movement in 2 weeks. She saw her oncologist today who referred her to the emergency department stating that she may have a bowel obstruction. TRAVEL OUTSIDE OF THE [place]. IN LAST 30 DAYS: No - Related Data Allergies/Adverse Reactions: Adhesive Bandage * [Adhesive Bandage] Allergy (Mild, Verified 02/13/17 11:42) Generalized rash adhesive tape [Adhesive Tape] Allergy (Mild, Verified 02/13/17 11:42) Generalized rash Past Medical History - Social History Frequency of alcohol use: Rare Drug Abuse: Marijuana - Past Medical History Cardiac Medical History: Denies: Hx Coronary Artery Disease, Hx Heart Attack, Hx Hypertension Pulmonary Medical History: Reports: Hx Asthma - TEENAGER Denies: Hx Bronchitis, Hx COPD, Hx Pneumonia, Hx Tuberculosis Neurological Medical History: Denies: Hx Cerebrovascular Accident, Hx Seizures Renal/ Medical History: Denies: Hx Peritoneal Dialysis Malignancy Medical History: Reports: Hx Breast Cancer - right, had mastectomy, last mammogram 1 year ago in left breast, neg GI Medical History: Reports: Hx Gastroesophageal Reflux Disease. Denies: Hx Hiatal Hernia, Hx Ulcer Musculoskeltal Medical History: Denies Hx Arthritis, Reports Hx Fibromyalgia Past Surgical History: Reports: Hx Section - x2, Hx Cholecystectomy, Hx Mastectomy - Right right mastectomy with axillary node dissection, Hx Tonsillectomy, Hx Tubal Ligation, Hx Vascular Surgery - Left chest wall port. Denies: Hx Open Heart Surgery - Immunizations Hx Diphtheria, Pertussis, Tetanus Vaccination: Yes Physical Exam - Vital signs Vitals: Temp Pulse Resp BP Pulse Ox 98.5 F 79 18 127/98 H 100 02/13/17 11:39 02/13/17 11:39 02/13/17 11:39 02/13/17 11:39 02/13/17 11:39 Course - Vital Signs Vital signs: Temp Pulse Resp BP Pulse Ox 98.5 F 79 18 127/98 H 100 02/13/17 11:39 02/13/17 11:39 02/13/17 11:39 02/13/17 11:39 02/13/17 11:39
[2017-02-13 12:16] LABS: ABSOLUTE BASOPHILS # (AUTO) 0.1 10^3/uL (0.0-0.2); ABSOLUTE EOSINOPHILS # (AUTO) 0.1 10^3/uL (0.0-0.6); ABSOLUTE LYMPHOCYTES (AUTO) 2.2 10^3/uL (0.5-4.7); ABSOLUTE MONOCYTES (AUTO) 0.4 10^3/uL (0.1-1.4); ABSOLUTE NEUT (AUTO) 3.6 10^3/uL (1.7-8.2); BASOPHILS % (AUTO) 0.9 % (0-2); EOSINOPHILS % (AUTO) 1.9 % (0-6); HEMATOCRIT 35.8 % (36.0-47.0); HEMOGLOBIN 11.7 g/dL (12.0-15.5); HGB HCT DIFFERENCE -0.7; LYMPHOCYTES % (AUTO) 34.5 % (13-45); MEAN CORPUSCULAR HEMOGLOBIN 31.6 pg (27.0-33.4); MEAN CORPUSCULAR HGB CONC 32.7 g/dL (32.0-36.0); MEAN CORPUSCULAR VOLUME 97 fl (80-97); MONOCYTES % (AUTO) 6.1 % (3-13); RED CELL DISTRIBUTION WIDTH 13.3 % (11.5-14.0); SEGMENTED NEUTROPHILS % (AUTO) 56.6 % (42-78); WHITE BLOOD COUNT 6.3 10^3/uL (4.0-10.5)
[2017-02-13 12:23] LABS: APPEARANCE,URINE SLIGHTLY-CLOUDY; BILIRUBIN,URINE NEGATIVE (NEGATIVE); GLUCOSE, URINE NEGATIVE (NEGATIVE); KETONES,URINE 80 mg/dL (NEGATIVE); LEUKOCYTE ESTERASE,URINE TRACE (NEGATIVE); NITRITE,URINE NEGATIVE (NEGATIVE); PROTEIN,URINE 30 mg/dL (NEGATIVE); URINE SPECIFIC GRAVITY 1.018
--- NOTE | 2017-02-13 12:29 | ER Document Report ---
ED GI/ - General Mode of Arrival: Ambulatory Information source: Patient TRAVEL OUTSIDE OF THE [place]. IN LAST 30 DAYS: No <MIKE SCHULTZ - Last Filed: 02/13/17 13:06> <JAIRON DUQUE - Last Filed: 02/13/17 15:44> - General Chief Complaint: Abdominal Pain Stated Complaint: DIFFICULTY URINARY Time Seen by Provider: 02/13/17 11:47 Notes: Patient is a 36-year-old female that presents to the emergency department today with complaints of constipation. Patient states she has not had a bowel movement in approximately 2 weeks. Patient is on opiate pain medication secondary to breast cancer with metastasis. Patient states she is on chemotherapy and she has had nausea and vomiting. (MIKE SCHULTZ) - Related Data Allergies/Adverse Reactions: Adhesive Bandage * [Adhesive Bandage] Allergy (Mild, Verified 02/13/17 11:42) Generalized rash adhesive tape [Adhesive Tape] Allergy (Mild, Verified 02/13/17 11:42) Generalized rash Home Medications: Current Home Medications Fulvestrant [Faslodex] 1 tab PO DAILY 02/13/17 [History] Ondansetron [Zofran Odt 4 mg Tablet] 1 - 2 tab SL Q4H PRN 02/13/17 [History] Oxycodone HCl 1 tab PO Q4 02/13/17 [History] Oxycodone HCl [Oxycontin Sr 40 mg Tablet] 1 tab PO BID 02/13/17 [History] Topiramate [Topamax] 1 tab PO BID 02/13/17 [History] Past Medical History - General Information source: Patient - Social History Smoking Status: Never Smoker Cigarette use (# per day): No Frequency of alcohol use: Rare Drug Abuse: Marijuana Lives with: Family Family History: Reviewed & Not Pertinent Patient has suicidal ideation: No Patient has homicidal ideation: No Pulmonary Medical History: Reports: Hx Asthma - TEENAGER Malignancy Medical History: Reports: Hx Breast Cancer - right, had mastectomy, last mammogram 1 year ago in left breast, neg, Other - recent pet scan showed nodules above and below diaphragm GI Medical History: Reports: Hx Gastroesophageal Reflux Disease Musculoskeltal Medical History: Reports Hx Fibromyalgia Past Surgical History: Reports: Hx Section - x2, Hx Cholecystectomy, Hx Mastectomy - Right right mastectomy with axillary node dissection, Hx Tonsillectomy, Hx Tubal Ligation, Hx Vascular Surgery - Left chest wall port - Immunizations Hx Diphtheria, Pertussis, Tetanus Vaccination: Yes Hx Pneumococcal Vaccination: 04/30/13 <MIKE SCHULTZ - Last Filed: 02/13/17 13:06> Review of Systems - Review of Systems Constitutional: No symptoms reported EENT: No symptoms reported Cardiovascular: No symptoms reported Respiratory: No symptoms reported Gastrointestinal: See HPI, Abdominal pain, Diarrhea, Nausea, Constipation Genitourinary: No symptoms reported Female Genitourinary: No symptoms reported Musculoskeletal: No symptoms reported Skin: No symptoms reported Hematologic/Lymphatic: No symptoms reported Neurological/Psychological: No symptoms reported -: Yes All other systems reviewed and negative <MIKE SCHULTZ - Last Filed: 02/13/17 13:06> Physical Exam - Vital signs Interpretation: Normal - General General appearance: Appears well, Alert - HEENT Head: Normocephalic, Atraumatic Eyes: Normal Pupils: PERRL - Respiratory Respiratory status: No respiratory distress Chest status: Nontender Breath sounds: Normal Chest palpation: Normal - Cardiovascular Rhythm: Regular Heart sounds: Normal auscultation Murmur: No - Abdominal Inspection: Other - somewhat firm Distension: No distension Bowel sounds: Normal Tenderness: Nontender Organomegaly: No organomegaly - Back Back: Normal, Nontender - Extremities General upper extremity: Edema - RUE, consistent with right sided mastectomy, Normal ROM General lower extremity: Normal inspection, Normal ROM. No: Edema - Neurological Neuro grossly intact: Yes Cognition: Normal Orientation: AAOx4 [place] Coma Scale Eye Opening: Spontaneous [place] Coma Scale Verbal: Oriented [place] Coma Scale Motor: Obeys Commands [place] Coma Scale Total: 15 Speech: Normal - Psychological Associated symptoms: Normal affect, Normal mood - Skin Skin Temperature: Warm Skin Moisture: Dry Skin Color: Normal <MIKE SCHULTZ - Last Filed: 02/13/17 13:06> - Vital signs Vitals: Temp Pulse Resp BP Pulse Ox 98.5 F 79 18 127/98 H 100 02/13/17 11:39 02/13/17 11:39 02/13/17 11:39 02/13/17 11:39 02/13/17 11:39 Course - Laboratory Result Diagrams: 02/13/17 11:55 02/13/17 11:55 <MIKE SCHULTZ - Last Filed: 02/13/17 13:06> - Laboratory Result Diagrams: 02/13/17 11:55 02/13/17 11:55 <JAIRON DUQUE - Last Filed: 02/13/17 15:44> - Re-evaluation Re-evalutation: 02/13/17 14:07 The patient refused the enema stating they never worked and tends to make her cramp and hurt more. I explained to her how the enemas frequently do not give immediate results but the mineral oil in them helps lubricate the stool the tube is passed high enough prior to instilling the enema. She still is unwilling to try the enema. (JAIRON DUQUE) - Vital Signs Vital signs: Temp Pulse Resp BP Pulse Ox 98.5 F 79 18 127/98 H 100 02/13/17 11:39 02/13/17 11:39 02/13/17 11:39 02/13/17 11:39 02/13/17 11:39 - Laboratory Laboratory results interpreted by me: 02/13/17 02/13/17 02/13/17 11:55 11:55 11:55 RBC 3.70 L Hgb 11.7 L Hct 35.8 L BUN 5 L Urine Protein 30 H Urine Ketones 80 H Urine Blood MODERATE H Urine Urobilinogen 4.0 H Ur Leukocyte Esterase TRACE H Discharge <MIKE SCHULTZ - Last Filed: 02/13/17 13:06> <JAIRON DUQUE - Last Filed: 02/13/17 15:44> - Discharge Clinical Impression: Dehydration, Metastatic breast cancer Nausea & vomiting Qualifiers: Vomiting type: unspecified Vomiting Intractability: non-intractable Qualified Code(s): R11.2 - Nausea with vomiting, unspecified Abdominal pain Qualifiers: Abdominal location: unspecified location Qualified Code(s): R10.9 - Unspecified abdominal pain Constipation Qualifiers: Constipation type: drug induced constipation Qualified Code(s): K59.03 - Drug induced constipation Condition: Stable Disposition: HOME, SELF-CARE Additional Instructions: Abdominal Pain: There are many causes of abdominal pain. Pain can mean a serious problem requiring surgery (such as appendicitis). It can also be an innocent problem that goes away on its own (such as a viral infection). Often, time must pass to determine the cause of pain. The physician does not feel that hospitalization is necessary, at present. Things may change within the next 24 hours. Call the doctor or come back for re- examination if any problems occur, such as: (1) Pain that becomes more severe, steady, or becomes concentrated in one specific area. Also, pain that is more severe with movement or coughing. (2) Vomiting that persists or becomes more frequent. (3) Blood in the vomitus, urine, or bowel movements. Blood in the stool may have a tarry or black appearance. (4) Shaking chills or fever greater than 100 degrees F. (5) The abdomen becomes more distended or swollen. (6) Bowel movements cease. (7) Failure to improve as expected. Your abdominal pain is probably made worse by constipation. Constipation is probably getting worse because of the pain medication you are taking. You should drink plenty of fluids. Take the lactulose you were prescribed at least 3 times a day. Try getting in a full bottle of citrate of magnesia today. Follow-up with Dr. Ahn tomorrow if not feeling better. RETURN TO THE EMERGENCY ROOM IF ANY NEW OR WORSENING SYMPTOMS. Referrals: MARTINEZ AHN MD [ACTIVE STAFF] - Follow up tomorrow Scribe Attestation: 02/13/17 15:44 I personally performed the services described in the documentation, reviewed and edited the documentation which was dictated to the scribe in my presence, and it accurately records my words and actions. (JAIRON DUQUE) Scribe Documentation - Scribe Written by Italo:: Italo Belle, 02/13/2017 1301 acting as scribe for :: Cira <MIKE SHCULTZ - Last Filed: 02/13/17 13:06>
[2017-02-13 12:32] LABS: ALANINE AMINOTRANSFERASE 33 U/L (9-52); ALBUMIN 3.9 g/dL (3.5-5.0); ALKALINE PHOSPHATASE 69 U/L (38-126); ANION GAP 8 (5-19); ASPARTATE AMINO TRANSFERASE 25 U/L (14-36); BILIRUBIN,DIRECT 0.3 mg/dL (0.0-0.4); BILIRUBIN,TOTAL 0.7 mg/dL (0.2-1.3); BLOOD UREA NITROGEN 5 mg/dL (7-20); CALCIUM 9.4 mg/dL (8.4-10.2); CARBON DIOXIDE 28 mmol/L (22-30); CHLORIDE 105 mmol/L (98-107); CREATININE RESULT 0.76 mg/dL (0.52-1.25); GLUCOSE 84 mg/dL (75-110); LIPASE 56.4 U/L (23-300); POTASSIUM 3.9 mmol/L (3.6-5.0); SODIUM 141.1 mmol/L (137-145); TOTAL PROTEIN 6.9 g/dL (6.3-8.2)
[2017-02-13] MEDS ORDERED: DEXTROSE 5%-LACTATED RINGERS 1,000 ML IV ONE (12:44)
[2017-02-13] MEDS ORDERED: ONDANSETRON HCL INJ/PF 4 MG/2 ML SDV IV ONE (12:45)
[2017-02-13] MEDS ORDERED: MINERAL OIL 30 ML UDCUP PR ONE (12:45)
--- NOTE | 2017-02-13 13:12 | RADIOLOGY REPORT (SQ) ---
EXAM DESCRIPTION: ACUTE ABDOMEN SERIES COMPLETED DATE/TIME: 02/13/2017 12:29 pm REASON FOR STUDY: cancer/pain/vomit/constipation COMPARISON: None. NUMBER OF VIEWS: Three views. TECHNIQUE: Frontal chest, supine abdomen and upright abdomen radiographic images acquired. LIMITATIONS: None. FINDINGS: CHEST: Lungs clear of infiltrates. FREE AIR: None. No abnormal gas collections. BOWEL GAS PATTERN: Nonobstructive pattern. No dilated loops or air fluid levels. CALCIFICATIONS: No suspicious calcifications. HARDWARE: Surgical clips in the gallbladder fossa. SOFT TISSUES: No gross mass or suggestion of organomegaly. BONES: No acute fracture. No worrisome bone lesions. OTHER: No other significant finding. IMPRESSION: NO RADIOGRAPHIC EVIDENCE FOR ACUTE ABDOMINAL DISEASE. TECHNICAL DOCUMENTATION: JOB ID: [id number] [employer]- All Rights Reserved
[2017-02-13 16:40] VITALS: BP 120/90
== END 2017-02-13 16:00 | disposition home or self-care (01) ==
LOC: ER 11:33
DX: K59.03 Drug induced constipation (principal); E86.0 Dehydration; C50.919 Malignant neoplasm of unspecified site of unspecified female breast; C79.9 Secondary malignant neoplasm of unspecified site; R10.9 Unspecified abdominal pain; R33.9 Retention of urine, unspecified; Z79.899 Other long term (current) drug therapy; R11.2 Nausea with vomiting, unspecified
CPT/HCPCS: 96376; 99284; 96361; 96375; 96365; 36415; 87040; 87086; 83690; 85025; 80053; 81001; 74022; J2765; J2270; J2405; J7030

== ENCOUNTER 2017-02-15 12:32 | Inpatient (IN) | payer MEDICAID ==
[2017-02-15] MEDS ORDERED: ONDANSETRON HCL INJ/PF 4 MG/2 ML SDV IV ONE (12:44)
[2017-02-15] MEDS ORDERED: NORMAL SALINE 1000 ML 1,000 ML IV ONE (12:44)
--- NOTE | 2017-02-15 12:46 | ER Document Report ---
ED Medical Screen (RME) - General Chief Complaint: Nausea/Vomiting Stated Complaint: VOMITING Time Seen by Provider: 02/15/17 12:44 Mode of Arrival: Wheelchair Information source: Patient, Relative TRAVEL OUTSIDE OF THE [place] IN LAST 30 DAYS: No - HPI Patient complains to provider of: abd pain/constipation/vomiting Onset: Other - pt .with metastatic ca was seen by PCP lenin today with abd pain and constipation for 2 weeks. Was seen here earlier for same - Related Data Allergies/Adverse Reactions: Adhesive Bandage * [Adhesive Bandage] Allergy (Mild, Verified 02/15/17 12:38) Generalized rash adhesive tape [Adhesive Tape] Allergy (Mild, Verified 02/15/17 12:38) Generalized rash Past Medical History - Past Medical History Cardiac Medical History: Denies: Hx Coronary Artery Disease, Hx Heart Attack, Hx Hypertension Pulmonary Medical History: Reports: Hx Asthma - TEENAGER Denies: Hx Bronchitis, Hx COPD, Hx Pneumonia, Hx Tuberculosis Neurological Medical History: Denies: Hx Cerebrovascular Accident, Hx Seizures Renal/ Medical History: Denies: Hx Peritoneal Dialysis Malignancy Medical History: Reports: Hx Breast Cancer - right, had mastectomy, last mammogram 1 year ago in left breast, neg GI Medical History: Reports: Hx Gastroesophageal Reflux Disease. Denies: Hx Hiatal Hernia, Hx Ulcer Musculoskeltal Medical History: Denies Hx Arthritis, Reports Hx Fibromyalgia Infectious Medical History: Past Surgical History: Reports: Hx Section - x2, Hx Cholecystectomy, Hx Mastectomy - Right right mastectomy with axillary node dissection, Hx Tonsillectomy, Hx Tubal Ligation, Hx Vascular Surgery - Left chest wall port. Denies: Hx Open Heart Surgery - Immunizations Hx Diphtheria, Pertussis, Tetanus Vaccination: Yes Physical Exam - Vital signs Vitals: Temp Pulse Resp BP Pulse Ox 97.9 F 64 20 125/63 99 02/15/17 12:39 02/15/17 12:39 02/15/17 12:39 02/15/17 12:39 02/15/17 12:39 Course - Vital Signs Vital signs: Temp Pulse Resp BP Pulse Ox 97.9 F 64 20 125/63 99 02/15/17 12:39 02/15/17 12:39 02/15/17 12:39 02/15/17 12:39 02/15/17 12:39
--- NOTE | 2017-02-15 13:16 | ER Document Report ---
ED GI/ - General Mode of Arrival: Wheelchair Information source: Patient TRAVEL OUTSIDE OF THE [place] IN LAST 30 DAYS: No - HPI Patient complains to provider of: Abdominal pain, Vomiting Associated symptoms: Other - see above <CY DESAI - Last Filed: 02/15/17 13:56> <OSWALDO JIMENES - Last Filed: 02/15/17 16:02> - General Chief Complaint: Nausea/Vomiting Stated Complaint: VOMITING Time Seen by Provider: 02/15/17 12:44 Notes: Patient is a 36 year old female who presents to the ED with complaints of abdominal pain and constipation x2 weeks. Patient has metestatic breast cancer and is on pain medication. She saw Dr. Moralez today and was sent to the ED for an enema and to have digital disimpaction. Patient has had some nausea and vomiting and states she feels weak. Patient also has shaking chills. (CY DESAI) - Related Data Allergies/Adverse Reactions: Adhesive Bandage * [Adhesive Bandage] Allergy (Mild, Verified 02/15/17 12:38) Generalized rash adhesive tape [Adhesive Tape] Allergy (Mild, Verified 02/15/17 12:38) Generalized rash Past Medical History - General Information source: Patient, Relative - Social History Smoking Status: Unknown if Ever Smoked Family History: Reviewed & Not Pertinent - Past Medical History Cardiac Medical History: Denies: Hx Coronary Artery Disease, Hx Heart Attack, Hx Hypertension Pulmonary Medical History: Reports: Hx Asthma - TEENAGER Denies: Hx Bronchitis, Hx COPD, Hx Pneumonia, Hx Tuberculosis Neurological Medical History: Denies: Hx Cerebrovascular Accident, Hx Seizures Renal/ Medical History: Denies: Hx Peritoneal Dialysis Malignancy Medical History: Reports: Hx Breast Cancer - right, had mastectomy, last mammogram 1 year ago in left breast, neg GI Medical History: Reports: Hx Gastroesophageal Reflux Disease. Denies: Hx Hiatal Hernia, Hx Ulcer Musculoskeltal Medical History: Denies Hx Arthritis, Reports Hx Fibromyalgia Infectious Medical History: Past Surgical History: Reports: Hx Section - x2, Hx Cholecystectomy, Hx Mastectomy - Right right mastectomy with axillary node dissection, Hx Tonsillectomy, Hx Tubal Ligation, Hx Vascular Surgery - Left chest wall port. Denies: Hx Open Heart Surgery - Immunizations Hx Diphtheria, Pertussis, Tetanus Vaccination: Yes Hx Pneumococcal Vaccination: 04/30/13 <CY DESAI - Last Filed: 02/15/17 13:56> Review of Systems - Review of Systems Constitutional: See HPI, Chills, Weakness EENT: No symptoms reported Cardiovascular: No symptoms reported Respiratory: No symptoms reported Gastrointestinal: See HPI, Abdominal pain, Nausea, Vomiting, Constipation Genitourinary: No symptoms reported Female Genitourinary: No symptoms reported Musculoskeletal: No symptoms reported Skin: No symptoms reported Hematologic/Lymphatic: No symptoms reported Neurological/Psychological: No symptoms reported <CY DESAI - Last Filed: 02/15/17 13:56> Physical Exam - General General appearance: Alert - HEENT Head: Normocephalic, Atraumatic Eyes: Normal Extraocular movements intact: Yes Pupils: PERRL - Respiratory Respiratory status: No respiratory distress Breath sounds: Normal - Cardiovascular Rhythm: Regular Heart sounds: Normal auscultation Murmur: No - Abdominal Distension: Distended - mildly Bowel sounds: Hypoactive Tenderness: Tender - diffuse - Back Back: Normal - Extremities General upper extremity: Normal inspection, Normal ROM General lower extremity: Normal inspection, Normal ROM - Neurological Neuro grossly intact: Yes - Psychological Associated symptoms: Normal affect, Normal mood - Skin Skin Temperature: Warm Skin Moisture: Dry Skin Color: Normal <CY DESAI - Last Filed: 02/15/17 13:56> <OSWALDO JIMENES - Last Filed: 02/15/17 16:02> - Vital signs Vitals: Temp Pulse Resp BP Pulse Ox 97.9 F 64 20 125/63 99 02/15/17 12:39 02/15/17 12:39 02/15/17 12:39 02/15/17 12:39 02/15/17 12:39 - Rectal Notes: Notable discomfort on digital rectal exam. No noted irregularities or hemorrhoids. Firm stool present just at the tip of my reach. Unable to evacuate any stool. Will perform enema now. (CY DESAI) Course - Laboratory Result Diagrams: 02/15/17 13:20 02/15/17 13:20 <CY DESAI - Last Filed: 02/15/17 13:56> - Laboratory Result Diagrams: 02/15/17 13:20 02/15/17 13:20 <OSWALDO JIMENES - Last Filed: 02/15/17 16:02> - Re-evaluation Re-evalutation: 02/15/17 14:59 Rectal exam was not well tolerated, but no acute abnormality was noted in the perianal area. She does have firm hard stool just at the end of the reach of my finger. We are continuing with an enema. 15:06 -the nurses come to me to tell me that the patient has not tolerated the enema tube well at all. She only allowed her to be inserted a few inches. Some fluid was placed into the distal rectum, but this came right back out. I have gone and reexamined the patient. She seems understandably distressed and reports that she has ongoing pain in her rectal area. She had been treated with fentanyl earlier, and viscous lidocaine was used during the rectal exam and is still present in the anal area. The fentanyl is likely fully worn off. We will treat her with further pain medication. We will try Dilaudid instead. 02/15/17 16:00 Despite Dilaudid, the patient still had moderate discomfort with the second attempt at an enema. We are able to instill approximately 500 mL's of fluid into her rectum, but without results of stool. I have called and spoken with Dr. Yohannes Rodriguez who agrees that it would be best if the patient was admitted to the hospital for ongoing enemas and nursing care. This is a patient of Dr. giron. I have called and spoke to Dr. Bose and given the report to him as well. He agrees with the plan and will admit the patient for ongoing bowel regimen and treatment of severe constipation. (OSWALDO JIMENES) - Vital Signs Vital signs: Temp Pulse Resp BP Pulse Ox 97.9 F 64 20 125/63 99 02/15/17 12:39 02/15/17 12:39 02/15/17 12:39 02/15/17 12:39 02/15/17 12:39 - Laboratory Laboratory results interpreted by me: 02/15/17 02/15/17 13:20 13:20 RBC 3.11 L Hgb 10.6 L Hct 30.1 L MCH 34.0 H Potassium 3.2 L Chloride 111 H BUN 4 L Glucose 72 L Calcium 7.4 L Total Protein 5.1 L Albumin 2.7 L Discharge <CY DESAI - Last Filed: 02/15/17 13:56> - Discharge Admitting Provider: Lidya Unit Admitted: Medical Floor <OSWALDO JIMENSE - Last Filed: 02/15/17 16:02> - Discharge Clinical Impression: Metastatic breast cancer Constipation Qualifiers: Constipation type: other constipation type Qualified Code(s): K59.09 - Other constipation Disposition: ADMITTED OBSERVATION Referrals: ANDREA BOSE MD [Primary Care Provider] - Follow up as needed Scribe Documentation - Scribe Written by Gordonibe:: gabo Cristobal, 02/15/2017, 1332 acting as scribe for :: Tierney <CY DEASI - Last Filed: 02/15/17 13:56>
[2017-02-15] MEDS ORDERED: LIDOCAINE 2% URO-JET 5 ML KIT MM ONE (13:22)
[2017-02-15] MEDS ORDERED: FENTANYL CITRATE INJ/PF 100 MCG/2 ML AMPUL IV ONE (13:22)
[2017-02-15 13:40] LABS: ABSOLUTE BASOPHILS # (AUTO) 0.1 10^3/uL (0.0-0.2); ABSOLUTE EOSINOPHILS # (AUTO) 0.1 10^3/uL (0.0-0.6); ABSOLUTE LYMPHOCYTES (AUTO) 1.9 10^3/uL (0.5-4.7); ABSOLUTE MONOCYTES (AUTO) 0.3 10^3/uL (0.1-1.4); ABSOLUTE NEUT (AUTO) 3.7 10^3/uL (1.7-8.2); BASOPHILS % (AUTO) 1.1 % (0-2); EOSINOPHILS % (AUTO) 1.3 % (0-6); HEMATOCRIT 30.1 % (36.0-47.0); HEMOGLOBIN 10.6 g/dL (12.0-15.5); HGB HCT DIFFERENCE 1.7; MEAN CORPUSCULAR HGB CONC 35.1 g/dL (32.0-36.0); MEAN CORPUSCULAR VOLUME 97 fl (80-97); MONOCYTES % (AUTO) 4.6 % (3-13); RED BLOOD COUNT 3.11 10^6/uL (3.72-5.28); RED CELL DISTRIBUTION WIDTH 13.1 % (11.5-14.0)
[2017-02-15 14:07] LABS: ALANINE AMINOTRANSFERASE 25 U/L (9-52); ALBUMIN 2.7 g/dL (3.5-5.0); ALKALINE PHOSPHATASE 46 U/L (38-126); ANION GAP 7 (5-19); ASPARTATE AMINO TRANSFERASE 17 U/L (14-36); BILIRUBIN,DIRECT 0.3 mg/dL (0.0-0.4); BILIRUBIN,TOTAL 0.4 mg/dL (0.2-1.3); BLOOD UREA NITROGEN 4 mg/dL (7-20); CALCIUM 7.4 mg/dL (8.4-10.2); CARBON DIOXIDE 24 mmol/L (22-30); CHLORIDE 111 mmol/L (98-107); GLUCOSE 72 mg/dL (75-110); LIPASE 33.7 U/L (23-300); POTASSIUM 3.2 mmol/L (3.6-5.0); SODIUM 142.3 mmol/L (137-145); TOTAL PROTEIN 5.1 g/dL (6.3-8.2)
[2017-02-15] MEDS ORDERED: HYDROMORPHONE HCL INJ/PF 2 MG/ML AMPULE IV ONE (15:08)
[2017-02-15] MEDS ORDERED: DEXTROSE 50%-WATER 25 GM/50 ML DISP.SYRIN IV PRN ×2 (19:19)
[2017-02-15] MEDS ORDERED: DEXTROSE 40% GEL 15 GM TUBE PO PRN ×2 (19:19)
[2017-02-15] MEDS ORDERED: GLUCAGON,HUMAN RECOMB 1 MG INJ SUBCUT PRN (19:19)
[2017-02-15] MEDS ORDERED: ONDANSETRON HCL INJ/PF 4 MG/2 ML SDV IV PRN (19:19)
[2017-02-15] MEDS ORDERED: FENTANYL 100 MCG/HR PATCH.TD72 TD ONE (20:15)
[2017-02-15] MEDS ORDERED: MAGNESIUM CITRATE 296 ML BOTTLE PO ONE (20:30)
[2017-02-15] MEDS ORDERED: ENOXAPARIN SODIUM INJ 40 MG/0.4 ML DISP.SYRIN SUBCUT ONE (20:30)
[2017-02-15] MEDS: POTASSI CL 20 MEQ/1/2NS 1L 20 MEQ/1,000 ML RTUINJ IV PRN (21:37)
[2017-02-15] MEDS ORDERED: BISACODYL 10 MG SUPP.RECT PR ONE (23:00)
[2017-02-16 05:49] LABS: AMORPHOUS SEDIMENT,URINE TRACE /HPF; APPEARANCE,URINE CLOUDY; BILIRUBIN,URINE NEGATIVE (NEGATIVE); GLUCOSE, URINE NEGATIVE (NEGATIVE); KETONES,URINE 20 mg/dL (NEGATIVE); LEUKOCYTE ESTERASE,URINE SMALL (NEGATIVE); NITRITE,URINE NEGATIVE (NEGATIVE); PROTEIN,URINE NEGATIVE (NEGATIVE); URINE SPECIFIC GRAVITY 1.008
--- NOTE | 2017-02-16 06:27 | PDOC H&P ---
History of Present Illness Admission Date/PCP: 02/15/17 19:19 ANDREA HOPPER MD Patient complains of: constipation & vomiting History of Present Illness: EFFIE LOUIS is a 36 year old female with upper outer R breast cancer since 2011. 22mm [id number] ER+. Chemo. Did not finish tmx or rd. 1m cta lung mets TNTC. [facility] pet & bronc cytology+. No one has been able to control pleuritic pain and nausea with oxy valium medrol chemo. Yesterday ER impaction. Finally passed 2 stools. Refused further enemas. Vomiting during history. Past Medical History Cardiac Medical History: Reports: None Denies: Coronary Artery Disease, Myocardial Infarction, Hypertension Pulmonary Medical History: Reports: Asthma - TEENAGER Denies: Bronchitis, Chronic Obstructive Pulmonary Disease (COPD), Pneumonia, Tuberculosis EENT Medical History: Reports: None Neurological Medical History: Reports: Migraine Denies: Seizures Endocrine Medical History: Reports: None Renal/ Medical History: Reports: None Malignancy Medical History: Reports: Breast Cancer - right, had mastectomy, last mammogram 1 year ago in left breast, neg GI Medical History: Reports: Gastroesophageal Reflux Disease Denies: Hiatal Hernia Musculoskeltal Medical History: Reports: Fibromyalgia Denies: Arthritis Skin Medical History: Reports: None Psychiatric Medical History: Reports: None Traumatic Medical History: Reports: None Hematology: Denies: Anemia, Sickle Cell Disease Infectious Medical History: Reports: None Past Surgical History Past Surgical History: Reports: Section - x2, Cholecystectomy, Mastectomy - Right right mastectomy with axillary node dissection, Orthopedic Surgery, Tonsillectomy, Tubal Ligation, Vascular Surgery - Left chest wall port Denies: Amputation Social History Information Source: Dr. Robbins Lives with: Family Smoking Status: Never Smoker Frequency of Alcohol Use: Occasional Hx Recreational Drug Use: No Hx Prescription Drug Abuse: No - Advance Directive Resuscitation Status: Full Code Family History Family History: DM Parental Family History Reviewed: Yes Children Family History Reviewed: Yes Sibling(s) Family History Reviewed.: Yes Medication/Allergy Home Medications: Lactulose [Constulose 10 gm/15 mL Oral Solution] 20 gm PO Q12 02/15/17 Oxycodone HCl [Oxycontin] 20 mg PO Q12H 02/15/17 Ondansetron [Ondansetron Odt] 4 mg PO BIDP PRN 02/16/17 Oxycodone HCl [Oxycodone HCl 10 MG Tablet] 10 mg PO TIDP PRN 02/16/17 Promethazine HCl [Phenergan 25 mg Supp.rect] 25 mg [place] Q4HP PRN 02/16/17 Promethazine HCl [Phenergan 25 mg Tablet] 25 mg PO QIDP PRN 02/16/17 Allergies/Adverse Reactions: Adhesive Bandage * [Adhesive Bandage] Allergy (Mild, Verified 02/15/17 12:38) Generalized rash adhesive tape [Adhesive Tape] Allergy (Mild, Verified 02/15/17 12:38) Generalized rash Review of Systems Constitutional: PRESENT: headache(s), weight loss. ABSENT: fever(s) Nose, Mouth, and Throat: ABSENT: sore throat Cardiovascular: PRESENT: chest pain, dyspnea on exertion, orthropnea Respiratory: PRESENT: cough Gastrointestinal: PRESENT: abdominal pain, constipation, hematochezia, vomiting Genitourinary: ABSENT: dysuria, hematuria Psychiatric: PRESENT: anxiety, depression Physical Exam Vital Signs: Temp Pulse Resp BP Pulse Ox 98.0 F 62 18 117/77 99 02/16/17 00:39 02/16/17 00:39 02/16/17 00:39 02/16/17 00:39 02/16/17 00:39 General appearance: PRESENT: mild distress Mouth exam: PRESENT: moist Neck exam: PRESENT: lymphadenopathy - L supraclavicular node 1cm. ABSENT: tenderness, thyromegaly, tracheal deviation Respiratory exam: PRESENT: clear to auscultation jose Cardiovascular exam: ABSENT: diastolic murmur, irregular rhythm, systolic murmur GI/Abdominal exam: PRESENT: tenderness - mild diffuse. ABSENT: mass, organolmegaly Neurological exam: PRESENT: oriented to situation Psychiatric exam: PRESENT: anxious, depressed Results Laboratory Results: Abnormal - 24 hr 02/15/17 02/15/17 13:20 13:20 RBC 3.11 L Hgb 10.6 L Hct 30.1 L MCH 34.0 H Potassium 3.2 L Chloride 111 H BUN 4 L Glucose 72 L Calcium 7.4 L Total Protein 5.1 L Albumin 2.7 L Assessment & Plan - Diagnosis (1) Impaction of colon Is this a current diagnosis for this admission?: Yes Plan: vianca. Consulted surgery (2) Malignant neoplasm of upper-outer quadrant of right female breast Qualifiers: Estrogen receptor status: positive Qualified Code(s): C50.411 - Malignant neoplasm of upper-outer quadrant of right female breast; Z17.0 - Estrogen receptor positive status [ER+] Is this a current diagnosis for this admission?: Yes Plan: fentanyl 100mcg/h. Haldol for pain augmentation and nausea. - Inpatient Certification Based on my medical assessment, after consideration of the patient's comorbidities, presenting symptoms, or acuity I expect that the services needed warrant INPATIENT care.: Yes I certify that my determination is in accordance with my understanding of Medicare's requirements for reasonable and necessary INPATIENT services [42 CFR 412.3e].: Yes Medical Necessity: Failure to Improve With Outpatient Therapy, Significant Comorbidiites Make Outpatient Treatment Too Risky, Need Close Monitoring Due to Risk of Patient Decompensation, Need For IV Fluids, Need for Pain Control, Need for Surgery, Risk of Complication if Not Cared For in Hospital, Risk of Diagnosis Which Will Require Inpatient Eval/Care/Monitoring
[2017-02-16] MEDS ORDERED: LUBIPROSTONE 24 MCG CAPSULE PO SCH (06:45)
[2017-02-16] MEDS ORDERED: LUBIPROSTONE 24 MCG CAPSULE PO ONE (07:00)
[2017-02-16] MEDS: POTASSI CL 20 MEQ/1/2NS 1L 20 MEQ/1,000 ML RTUINJ IV PRN ×2 (07:13→21:19)
[2017-02-16 07:49] LABS: ANION GAP 8 (5-19); BLOOD UREA NITROGEN 4 mg/dL (7-20); CALCIUM 8.7 mg/dL (8.4-10.2); CARBON DIOXIDE 28 mmol/L (22-30); CHLORIDE 102 mmol/L (98-107); CREATININE RESULT 0.66 mg/dL (0.52-1.25); GLUCOSE 82 mg/dL (75-110); POTASSIUM 4.1 mmol/L (3.6-5.0); SODIUM 137.9 mmol/L (137-145)
[2017-02-16] MEDS: HALOPERIDOL LACTATE INJ 5 MG/1 ML VIAL IV SCH ×3 (09:58→21:19)
[2017-02-16] MEDS: LEVETIRACETAM 500 MG/NACL-ISO 500 MG/100 ML RTUPB IV SCH ×2 (10:02→21:19)
[2017-02-16] MEDS: ENOXAPARIN SODIUM INJ 40 MG/0.4 ML DISP.SYRIN SUBCUT SCH (10:03)
[2017-02-16] MEDS: DOCUSATE SODIUM 100 MG CAPSULE PO SCH ×2 (10:04→17:49)
--- NOTE | 2017-02-16 10:05 | RADIOLOGY REPORT (SQ) ---
EXAM DESCRIPTION: ABDOMEN 2 VIEWS COMPLETED DATE/TIME: 02/16/2017 9:47 am REASON FOR STUDY: r/o constip. COMPARISON: 02/13/2017. NUMBER OF VIEWS: Two views. TECHNIQUE: Supine and erect/decubitus radiographic images of the abdomen acquired. LIMITATIONS: None. FINDINGS: FREE AIR: None. No abnormal gas collections. LUNG BASES: Clear. BOWEL GAS PATTERN: Scattered air-fluid levels appear to be restricted to the colon. Nonobstructive p attern. No dilated loops. CALCIFICATIONS: Chronic calcifications in the pelvis, phleboliths. SOFT TISSUES: No gross mass or suggestion of organomegaly. HARDWARE: None in the abdomen. BONES: No acute fracture. No worrisome bone lesions. OTHER: No other significant finding. IMPRESSION: No acute findings suggested. No evidence of mechanical bowel obstruction. TECHNICAL DOCUMENTATION: JOB ID: [id number] [employer]- All Rights Reserved
[2017-02-16] MEDS: LUBIPROSTONE 24 MCG CAPSULE PO SCH (22:11)
[2017-02-17] MEDS: HALOPERIDOL LACTATE INJ 5 MG/1 ML VIAL IV SCH ×3 (03:24→14:23)
[2017-02-17 05:10] LABS: ANION GAP 8 (5-19); BLOOD UREA NITROGEN 4 mg/dL (7-20); CALCIUM 8.9 mg/dL (8.4-10.2); CARBON DIOXIDE 26 mmol/L (22-30); CHLORIDE 104 mmol/L (98-107); CREATININE RESULT 0.68 mg/dL (0.52-1.25); GLUCOSE 70 mg/dL (75-110); POTASSIUM 4.1 mmol/L (3.6-5.0); SODIUM 138.1 mmol/L (137-145)
--- NOTE | 2017-02-17 05:52 | PDOC PROGRESS REPORT ---
Subjective Progress Note for:: 02/17/17 Subjective:: no more vomiting after haldol until now. 5y seizures 6qy with post ictal but no tongue bite or incontinence. EEG-. No Rx. Yester convulsed 1" in radiology. ? symmetric. Physical Exam Vital Signs: Temp Pulse Resp BP Pulse Ox 97.8 F 55 L 18 128/87 H 98 02/16/17 23:06 02/16/17 23:06 02/16/17 23:06 02/16/17 23:06 02/16/17 23:06 Intake & Output 02/15/17 02/16/17 02/17/17 07:59 07:59 07:59 Intake Total 1942 1300 Output Total 700 500 Balance 1242 800 Weight 206 lb 5.643 oz 206 lb 5.643 oz General appearance: PRESENT: mild distress Respiratory exam: PRESENT: clear to auscultation jose Cardiovascular exam: PRESENT: systolic murmur - gr1 Lsb. ABSENT: diastolic murmur, irregular rhythm Murmur grade: 1 GI/Abdominal exam: PRESENT: tenderness - mild epigastric. ABSENT: mass, organolmegaly Extremities exam: ABSENT: pedal edema Results Laboratory Results: 02/17/17 04:47 02/16/17 02/16/17 02/17/17 05:35 06:57 04:47 Sodium 137.9 138.1 Potassium 4.1 4.1 Chloride 102 104 Carbon Dioxide 28 26 Anion Gap 8 8 BUN 4 L 4 L Creatinine 0.66 0.68 Est GFR ( Amer) > 60 > 60 Est GFR (Non-Af Amer) > 60 > 60 Glucose 82 70 L Calcium 8.7 8.9 Urine Color YELLOW Urine Appearance CLOUDY Urine pH 7.0 Ur Specific [place] 1.008 Urine Protein NEGATIVE Urine Glucose (UA) NEGATIVE Urine Ketones 20 H Urine Blood SMALL H Urine Nitrite NEGATIVE Ur Leukocyte Esterase SMALL H Urine WBC (Auto) 2 Impressions: Abdomen X-Ray 02/16/17 08:06 IMPRESSION: No acute findings suggested. No evidence of mechanical bowel obstruction. Assessment & Plan - Diagnosis (1) Impaction of colon Is this a current diagnosis for this admission?: Yes Plan: kub no obstruction. 2 stools (2) Malignant neoplasm of upper-outer quadrant of right female breast Qualifiers: Estrogen receptor status: positive Qualified Code(s): C50.411 - Malignant neoplasm of upper-outer quadrant of right female breast; Z17.0 - Estrogen receptor positive status [ER+] Is this a current diagnosis for this admission?: Yes Plan: ct head. Continue haldol for vomiting (3) Seizure Is this a current diagnosis for this admission?: Yes Plan: EEG. Started keppra. Getting ct. Suspect met. ?decadron - Inpatient Certification Medical Necessity: Failure to Improve With Outpatient Therapy, Significant Comorbidiites Make Outpatient Treatment Too Risky, Need Close Monitoring Due to Risk of Patient Decompensation, Need For IV Fluids, Need for Pain Control, Risk of Complication if Not Cared For in Hospital, Risk of Diagnosis Which Will Require Inpatient Eval/Care/Monitoring
[2017-02-17] MEDS: POTASSI CL 20 MEQ/1/2NS 1L 20 MEQ/1,000 ML RTUINJ IV PRN ×2 (09:37→17:16)
--- NOTE | 2017-02-17 09:47 | RADIOLOGY REPORT (SQ) ---
EXAM DESCRIPTION: CT HEAD COMBO COMPLETED DATE/TIME: 02/17/2017 9:33 am REASON FOR STUDY: new seizue/metastatic breast cancer COMPARISON: 09/30/2016. TECHNIQUE: Axial images acquired through the brain without and with intravenous contrast. Images re viewed with bone, brain and subdural windows. Images stored on PACS. All CT scanners at this facility use dose modulation, iterative reconstruction, and/or weight based d osing when appropriate to reduce radiation dose to as low as reasonably achievable (ALARA). [facility]: Dose Right [facility]: CareDose [facility]: Dose Right [facility]: Teradose 4D [facility]: [employer] CONTRAST TYPE AND DOSE: contrast/concentration: Isovue 370.00 mg/ml; Total Contrast Delivered: 50.0 ml; Total Saline Delivered: 50.0 ml RENAL FUNCTION: None required. The patient is less than 50 years old. RADIATION DOSE: Up-to-date CT equipment and radiation dose reduction techniques were employed. CTDIv ol: 64.6 mGy. DLP: 2326 mGy-cm.. LIMITATIONS: None. FINDINGS: VENTRICLES: Normal size and contour. CEREBRUM: No masses. No hemorrhage. No midline shift. Normal oreilly/white matter differentiation. No ev idence for acute infarction. No enhancing lesions. CEREBELLUM: No masses. No hemorrhage. No alteration of density. No evidence for acute infarction. No enhancing lesions. EXTRA-AXIAL SPACES: No fluid collections. No enhancing lesions. ORBITS AND GLOBE: No intra- or extraconal masses. Normal contour of globe without masses. CALVARIUM: No fracture. PARANASAL SINUSES: No fluid or mucosal thickening. SOFT TISSUES: No mass or hematoma. OTHER: No other significant finding. IMPRESSION: 1. Essentially normal appearance of the brain CT without and with contrast. No gross e nhancing lesions to suggest metastatic disease. Does the patient have some contraindication to MRI? MRI would be more sensitive to subtle developing metastases. TECHNICAL DOCUMENTATION: JOB ID: [id number] Quality ID # [id number]: Final reports with documentation of one or more dose reduction techniques (e.g., Au tomated exposure control, adjustment of the mA and/or kV according to patient size, use of iterative reconstruction technique) 2010 [employer]- All Rights Reserved
[2017-02-17] MEDS ORDERED: ONDANSETRON HCL INJ/PF 4 MG/2 ML SDV IV PRN (09:53)
[2017-02-17] MEDS: LEVETIRACETAM 500 MG/NACL-ISO 500 MG/100 ML RTUPB IV SCH ×2 (10:12→21:58)
[2017-02-17] MEDS: ENOXAPARIN SODIUM INJ 40 MG/0.4 ML DISP.SYRIN SUBCUT SCH (10:12)
[2017-02-17] MEDS: LUBIPROSTONE 24 MCG CAPSULE PO SCH ×2 (10:52→21:49)
[2017-02-17] MEDS: DOCUSATE SODIUM 100 MG CAPSULE PO SCH ×2 (10:52→17:15)
[2017-02-18] MEDS: POTASSI CL 20 MEQ/1/2NS 1L 20 MEQ/1,000 ML RTUINJ IV PRN (00:28)
--- NOTE | 2017-02-18 07:07 | PDOC DISCHARGE SUMMARY ---
General - Admit/Disc Date/PCP Admission Date/Primary Care Provider: 02/15/17 19:19 ANDREA HOPPER MD Discharge Date: 02/18/17 - Discharge Diagnosis (1) Impaction of colon Is this a current diagnosis for this admission?: Yes (2) Malignant neoplasm of upper-outer quadrant of right female breast Is this a current diagnosis for this admission?: Yes (3) Seizure Is this a current diagnosis for this admission?: Yes - Additional Information Resuscitation Status: Full Code Discharge Diet: As Tolerated Discharge Activity: Activity As Tolerated Home Medications: Oxycodone HCl [Oxycontin] 20 mg PO Q12H 02/15/17 Ondansetron [Ondansetron Odt] 4 mg PO BIDP PRN 02/16/17 Oxycodone HCl [Oxycodone HCl 10 MG Tablet] 10 mg PO TIDP PRN 02/16/17 Promethazine HCl [Phenergan 25 mg Supp.rect] 25 mg [place] Q4HP PRN 02/16/17 Promethazine HCl [Phenergan 25 mg Tablet] 25 mg PO QIDP PRN 02/16/17 Docusate Sodium [Colace 100 mg Capsule] 100 mg PO BID 3 Days #180 capsule Lactulose [Constulose 10 gm/15 mL Oral Solution] 20 gm PO Q8H #3000 ml 02/18/17 Levetiracetam [Keppra 500 mg Tablet] 500 mg PO Q12 #60 tablet 02/18/17 History of Present Illness Patient complains of: constipation vomiting History of Present Illness: EFFIE LOUIS is a 36 year old female with upper outer R breast cancer since 2011. 22mm [id number]+ ER+. Chemo. Did not finish tmx or rd. 1m cta lung mets TNTC. Makers & pet & bronc cytology+. No one has been able to control pleuritic pain and nausea with oxy valium medrol chemo. Yesterday ER impaction. Finally passed 2 stools. Refused further enemas. Vomiting during history. Hospital Course Hospital Course: Enemas. 3 stools. KUB negative. Ondansetron failed. Haldol worked then she refused it because of sedation. Seizure in Xray. Has been having them for 5 years several per year without treatment. EEG had been normal. Started keppra. Physical Exam Vital Signs: Temp Pulse Resp BP Pulse Ox 98.3 F 62 18 106/60 99 02/18/17 04:13 02/18/17 04:13 02/18/17 04:13 02/18/17 04:13 02/18/17 04:13 Intake & Output 02/16/17 02/17/17 02/18/17 07:59 07:59 07:59 Intake Total 1942 3130 3312 Output Total 443 180 7912 Balance 1242 2530 1012 Weight 206 lb 5.643 oz 217 lb 6.012 oz 212 lb 1.355 oz General appearance: PRESENT: no acute distress Respiratory exam: PRESENT: clear to auscultation jose Cardiovascular exam: ABSENT: diastolic murmur, irregular rhythm, systolic murmur Murmur grade: 1 GI/Abdominal exam: ABSENT: mass, organolmegaly, tenderness Extremities exam: ABSENT: pedal edema Neurological exam: PRESENT: oriented to situation Psychiatric exam: PRESENT: appropriate affect Results Laboratory Results: 02/18/17 05:35 Labs- Last Values WBC 6.0 10^3/uL (4.0-10.5) 02/15/17 13:20 RBC 3.11 10^6/uL (3.72-5.28) L 02/15/17 13:20 Hgb 10.6 g/dL (12.0-15.5) L 02/15/17 13:20 Hct 30.1 % (36.0-47.0) L 02/15/17 13:20 MCV 97 fl (80-97) 02/15/17 13:20 MCH 34.0 pg (27.0-33.4) H 02/15/17 13:20 MCHC 35.1 g/dL (32.0-36.0) 02/15/17 13:20 RDW 13.1 % (11.5-14.0) 02/15/17 13:20 Plt Count 257 10^3/uL (150-450) 02/15/17 13:20 Seg Neutrophils % 61.0 % (42-78) 02/15/17 13:20 Lymphocytes % 32.0 % (13-45) 02/15/17 13:20 Monocytes % 4.6 % (3-13) 02/15/17 13:20 Eosinophils % 1.3 % (0-6) 02/15/17 13:20 Basophils % 1.1 % (0-2) 02/15/17 13:20 Absolute Neutrophils 3.7 10^3/uL (1.7-8.2) 02/15/17 13:20 Absolute Lymphocytes 1.9 10^3/uL (0.5-4.7) 02/15/17 13:20 Absolute Monocytes 0.3 10^3/uL (0.1-1.4) 02/15/17 13:20 Absolute Eosinophils 0.1 10^3/uL (0.0-0.6) 02/15/17 13:20 Absolute Basophils 0.1 10^3/uL (0.0-0.2) 02/15/17 13:20 Sodium 138.1 mmol/L (137-145) 02/17/17 04:47 Potassium 4.1 mmol/L (3.6-5.0) 02/17/17 04:47 Chloride 104 mmol/L (98-107) 02/17/17 04:47 Carbon Dioxide 26 mmol/L (22-30) 02/17/17 04:47 Anion Gap 8 (5-19) 02/17/17 04:47 BUN 4 mg/dL (7-20) L 02/17/17 04:47 Creatinine 0.68 mg/dL (0.52-1.25) 02/17/17 04:47 Est GFR ( Amer) > 60 (>60) 02/17/17 04:47 Est GFR (Non-Af Amer) > 60 (>60) 02/17/17 04:47 Glucose 70 mg/dL (75-110) L 02/17/17 04:47 Calcium 8.9 mg/dL (8.4-10.2) 02/17/17 04:47 Total Bilirubin 0.4 mg/dL (0.2-1.3) 02/15/17 13:20 Direct Bilirubin 0.3 mg/dL (0.0-0.4) 02/15/17 13:20 Indirect Bilirubin Not Reportable 02/15/17 13:20 Neonat Total Bilirubin Not Reportable 02/15/17 13:20 AST 17 U/L (14-36) 02/15/17 13:20 ALT 25 U/L (9-52) 02/15/17 13:20 Alkaline Phosphatase 46 U/L (38-126) 02/15/17 13:20 Total Protein 5.1 g/dL (6.3-8.2) L 02/15/17 13:20 Albumin 2.7 g/dL (3.5-5.0) L 02/15/17 13:20 Lipase 33.7 U/L (23-300) 02/15/17 13:20 Urine Color YELLOW 02/16/17 05:35 Urine Appearance CLOUDY 02/16/17 05:35 Urine pH 7.0 (5.0-9.0) 02/16/17 05:35 Ur Specific [place] 1.008 02/16/17 05:35 Urine Protein NEGATIVE mg/dL (NEGATIVE) 02/16/17 05:35 Urine Glucose (UA) NEGATIVE mg/dL (NEGATIVE) 02/16/17 05:35 Urine Ketones 20 mg/dL (NEGATIVE) H 02/16/17 05:35 Urine Blood SMALL (NEGATIVE) H 02/16/17 05:35 Urine Nitrite NEGATIVE (NEGATIVE) 02/16/17 05:35 Urine Bilirubin NEGATIVE (NEGATIVE) 02/16/17 05:35 Urine Urobilinogen 2.0 mg/dL (<2.0) H 02/16/17 05:35 Ur Leukocyte Esterase SMALL (NEGATIVE) H 02/16/17 05:35 Urine WBC (Auto) 2 /HPF 02/16/17 05:35 Urine Bacteria (Auto) 2+ /HPF 02/16/17 05:35 Squamous Epi Cells Auto 2 /HPF 02/16/17 05:35 Amorphous Sediment Auto TRACE /HPF 02/16/17 05:35 Urine Mucus (Auto) RARE /LPF 02/16/17 05:35 Urine Ascorbic Acid NEGATIVE (NEGATIVE) 02/16/17 05:35 Impressions: Abdomen X-Ray 02/16/17 08:06 IMPRESSION: No acute findings suggested. No evidence of mechanical bowel obstruction. Head CT 02/17/17 00:00 IMPRESSION: 1. Essentially normal appearance of the brain CT without and with contrast. No gross enhancing lesions to suggest metastatic disease. Does the patient have some contraindication to MRI? MRI would be more sensitive to subtle developing metastases. Qualifiers PATEINT BEING DISCHARGED WITH ANY OF THE FOLLOWING DIAGNOSIS?: No Plan Discharge Plan: home. 8d ov
[2017-02-18 08:02] LABS: ANION GAP 13 (5-19); BLOOD UREA NITROGEN 4 mg/dL (7-20); CALCIUM 9.2 mg/dL (8.4-10.2); CARBON DIOXIDE 23 mmol/L (22-30); CHLORIDE 102 mmol/L (98-107); CREATININE RESULT 0.67 mg/dL (0.52-1.25); POTASSIUM 4.4 mmol/L (3.6-5.0); SODIUM 137.5 mmol/L (137-145)
[2017-02-18 08:11] LABS: GLUCOSE 53 mg/dL (75-110)
[2017-02-18 08:12] VITALS: BP 124/74
[2017-02-18] MEDS ORDERED: FENTANYL 100 MCG/HR PATCH.TD72 TD SCH (10:00)
== END 2017-02-18 09:01 | disposition home or self-care (01) | DRG 389 ==
LOC: ER 12:32 → EH 16:42 → UNDOADMOB 16:42 → 4S 18:14 → EH 18:14 → 4S 19:19 → OBSVTOIN 02-16 19:00
PROVIDERS: ADMIT Family Medicine; ATTEND Family Medicine
DX: K56.41 Fecal impaction (principal); C78.00 Secondary malignant neoplasm of unspecified lung; C50.411 Malignant neoplasm of upper-outer quadrant of right female breast; G40.909 Epilepsy, unspecified, not intractable, without status epilepticus; R07.81 Pleurodynia; R11.2 Nausea with vomiting, unspecified; K21.9 Gastro-esophageal reflux disease without esophagitis; Z17.0 Estrogen receptor positive status [ER+]; Z90.11 Acquired absence of right breast and nipple
CPT/HCPCS: 36415; 70470; 74020; 80048; 80053; 81001; 83690; 85025; 96361; 96374; 96375; 99285; J1170; J1630; J1650; J1953; J2405; J3010; J3480; J3490; J7030

== ENCOUNTER 2017-02-27 16:20 | Observation (INO) | payer MEDICAID ==
--- NOTE | 2017-02-27 17:15 | ER Document Report ---
ED GI/ - General Mode of Arrival: Ambulatory Information source: Patient TRAVEL OUTSIDE OF THE [place] IN LAST 30 DAYS: No <MIKE SCHULTZ - Last Filed: 02/27/17 17:18> <ROSETTA SOUSA - Last Filed: 02/27/17 19:14> - General Chief Complaint: Abdominal Pain Stated Complaint: VOMITING Time Seen by Provider: 02/27/17 16:58 Notes: Patient is a 36-year-old female who presents to the emergency department today with complaints of a cough. Patient states that she began bringing up brown and yellow mucus overnight last night. Patient states she has also been vomiting as well. Patient states her last fever was two days ago. (MIKE SCHULTZ) - Related Data Allergies/Adverse Reactions: Adhesive Bandage * [Adhesive Bandage] Allergy (Mild, Verified 02/15/17 12:38) Generalized rash adhesive tape [Adhesive Tape] Allergy (Mild, Verified 02/15/17 12:38) Generalized rash Past Medical History - General Information source: Patient - Social History Smoking Status: Never Smoker Cigarette use (# per day): No Frequency of alcohol use: None Drug Abuse: None Lives with: Family Family History: Reviewed & Not Pertinent, DM Pulmonary Medical History: Reports: Hx Asthma - TEENAGER Neurological Medical History: Reports: Hx Migraine Malignancy Medical History: Reports: Hx Breast Cancer - right, had mastectomy, last mammogram 1 year ago in left breast, neg GI Medical History: Reports: Hx Gastroesophageal Reflux Disease Musculoskeltal Medical History: Reports Hx Fibromyalgia Infectious Medical History: Past Surgical History: Reports: Hx Section - x2, Hx Cholecystectomy, Hx Mastectomy - Right right mastectomy with axillary node dissection, Hx Orthopedic Surgery, Hx Tonsillectomy, Hx Tubal Ligation, Hx Vascular Surgery - Left chest wall port - Immunizations Hx Diphtheria, Pertussis, Tetanus Vaccination: Yes Hx Pneumococcal Vaccination: 04/30/13 <MIKE SCHULTZ - Last Filed: 02/27/17 17:18> Review of Systems - Review of Systems Constitutional: No symptoms reported EENT: No symptoms reported Cardiovascular: No symptoms reported Respiratory: See HPI, Cough Gastrointestinal: See HPI, Nausea, Vomiting Genitourinary: No symptoms reported Female Genitourinary: No symptoms reported Musculoskeletal: No symptoms reported Skin: No symptoms reported Hematologic/Lymphatic: No symptoms reported Neurological/Psychological: No symptoms reported -: Yes All other systems reviewed and negative <MIKE SCHULTZ - Last Filed: 02/27/17 17:18> Physical Exam <MIKE SCHULTZ - Last Filed: 02/27/17 17:18> <ROSETTA SOUSA - Last Filed: 02/27/17 19:14> - Vital signs Vitals: Temp Pulse Resp BP Pulse Ox 98.5 F 105 H 24 H 118/79 99 02/27/17 16:23 02/27/17 16:23 02/27/17 16:23 02/27/17 16:23 02/27/17 16:23 - Notes Notes: Physical Exam: General: Alert, appears at baseline. HEENT: Normocephalic. Atraumatic. PERRL. Extraocular movements intact. Oropharynx clear. Dry mucous membranes. Neck: Supple. Non-tender. Respiratory: No respiratory distress. Coarse breath sounds bilaterally. Cardiovascular: Regular rate and rhythm. Abdominal: Mild generalized abdominal tenderness. No distension. Normal Bowel Sounds. Back: Non-tender. No deformity or step off. Extremities: Moves all four extremities. Upper extremities: Normal inspection. Normal ROM. Lower extremities: Normal inspection. No edema. Normal ROM. Neurological: Normal cognition. AAOx4. Normal speech. Psychological: Normal affect. Normal Mood. Skin: Warm. Dry. Normal color. (MIKE SCHULTZ) Course - Laboratory Result Diagrams: 02/27/17 17:22 02/27/17 17:22 <PAZROSETTA Keller - Last Filed: 02/27/17 19:14> - Vital Signs Vital signs: Temp Pulse Resp BP Pulse Ox 98.5 F 105 H 18 118/79 99 02/27/17 16:23 02/27/17 16:23 02/27/17 17:00 02/27/17 16:23 02/27/17 16:23 - Laboratory Laboratory results interpreted by me: 02/27/17 02/27/17 17:22 17:22 RBC 3.62 L Hct 35.2 L RDW 14.7 H BUN 4 L Discharge <MIKE SCHULTZ - Last Filed: 02/27/17 17:18> - Discharge Admitting Provider: [facility] Unit Admitted: Telemetry <ROSETTA SOUSA - Last Filed: 02/27/17 19:14> - Discharge Clinical Impression: Pneumonia, Vomiting Condition: Fair Disposition: ADMITTED INPATIENT Scribe Documentation - Scribe Written by Scribe:: Italo Belle, 02/27/2017 1716 acting as scribe for :: Paz <MIKE SCHULTZ - Last Filed: 02/27/17 17:18>
[2017-02-27] MEDS ORDERED: NORMAL SALINE 1000 ML 1,000 ML IV ONE (17:19)
[2017-02-27] MEDS ORDERED: ONDANSETRON HCL INJ/PF 4 MG/2 ML SDV IV ONE (17:19)
[2017-02-27 17:40] LABS: ABSOLUTE BASOPHILS # (AUTO) 0.1 10^3/uL (0.0-0.2); ABSOLUTE LYMPHOCYTES (AUTO) 1.5 10^3/uL (0.5-4.7); ABSOLUTE MONOCYTES (AUTO) 0.3 10^3/uL (0.1-1.4); ABSOLUTE NEUT (AUTO) 3.2 10^3/uL (1.7-8.2); EOSINOPHILS % (AUTO) 0.8 % (0-6); HEMATOCRIT 35.2 % (36.0-47.0); HGB HCT DIFFERENCE 0.8; LYMPHOCYTES % (AUTO) 29.9 % (13-45); MEAN CORPUSCULAR HEMOGLOBIN 33.2 pg (27.0-33.4); MEAN CORPUSCULAR HGB CONC 34.2 g/dL (32.0-36.0); MEAN CORPUSCULAR VOLUME 97 fl (80-97); MONOCYTES % (AUTO) 5.1 % (3-13); RED BLOOD COUNT 3.62 10^6/uL (3.72-5.28); RED CELL DISTRIBUTION WIDTH 14.7 % (11.5-14.0); SEGMENTED NEUTROPHILS % (AUTO) 63.2 % (42-78); WHITE BLOOD COUNT 5.1 10^3/uL (4.0-10.5)
[2017-02-27 17:47] LABS: PROTHROMBIN TIME 13.9 SEC (11.4-15.4)
[2017-02-27] MEDS ORDERED: OLANZAPINE 2.5 MG TABLET PO SCH (18:00)
[2017-02-27] MEDS ORDERED: VENLAFAXINE HCL 75 MG TABLET PO SCH (18:00)
[2017-02-27 18:03] LABS: ALANINE AMINOTRANSFERASE 23 U/L (9-52); ALBUMIN 4.4 g/dL (3.5-5.0); ALKALINE PHOSPHATASE 62 U/L (38-126); ANION GAP 11 (5-19); ASPARTATE AMINO TRANSFERASE 17 U/L (14-36); BILIRUBIN,DIRECT 0.3 mg/dL (0.0-0.4); BILIRUBIN,TOTAL 0.6 mg/dL (0.2-1.3); BLOOD UREA NITROGEN 4 mg/dL (7-20); CALCIUM 9.6 mg/dL (8.4-10.2); CARBON DIOXIDE 27 mmol/L (22-30); CHLORIDE 103 mmol/L (98-107); CREATININE RESULT 0.75 mg/dL (0.52-1.25); GLUCOSE 84 mg/dL (75-110); POTASSIUM 3.9 mmol/L (3.6-5.0); SODIUM 140.6 mmol/L (137-145); TOTAL PROTEIN 7.5 g/dL (6.3-8.2)
--- NOTE | 2017-02-27 18:11 | RADIOLOGY REPORT (SQ) ---
EXAM DESCRIPTION: CHEST PA/LAT COMPLETED DATE/TIME: 02/27/2017 6:01 pm REASON FOR STUDY: Cough COMPARISON: 03/23/2016 EXAM PARAMETERS: NUMBER OF VIEWS: two views TECHNIQUE: Digital Frontal and Lateral radiographic views of the chest acquired. RADIATION DOSE: NA LIMITATIONS: none FINDINGS: LUNGS AND PLEURA: There is slight haziness the right lower lung. No definite infiltrate i s seen on the lateral view, however. MEDIASTINUM AND HILAR STRUCTURES: No masses or contour abnormalities. HEART AND VASCULAR STRUCTURES: Heart normal size. No evidence for failure. BONES: No acute findings. HARDWARE: None in the chest. OTHER: No other significant finding. IMPRESSION: Cannot exclude minimal airspace disease in the right lower lung, possibly middle lobe. TECHNICAL DOCUMENTATION: JOB ID: [id number] [employer]- All Rights Reserved
--- NOTE | 2017-02-27 18:46 | EKG REPORT ---
SEVERITY:- NORMAL ECG - SINUS RHYTHM : Confirmed by: Lakhwinder George MD 27-Feb-2017 18:45:29
[2017-02-27] MEDS ORDERED: PIPERACILLIN/TAZOBACTAM 3.375 GM VIAL IV ONE (19:00)
[2017-02-27] MEDS ORDERED: VANCOMYCIN HCL INJ 1000 MG VIAL IV ONE ×2 (19:12→19:14)
[2017-02-27] MEDS ORDERED: OXYCODONE HCL IR 5 MG TABLET ONE (21:55)
[2017-02-27] MEDS ORDERED: CLONIDINE HCL 0.1 MG TABLET PO SCH (22:00)
[2017-02-27] MEDS ORDERED: 1/2 NORMAL SALINE 1,000 ML IV PRN (22:32)
[2017-02-27] MEDS ORDERED: OXYCODONE HCL SR 10 MG TABLET PO PRN (22:33)
[2017-02-27] MEDS ORDERED: VANCOMYCIN HCL INJ 1000 MG VIAL ONE (22:36)
[2017-02-27] MEDS ORDERED: PROMETHAZINE HCL 25 MG SUPP.RECT PR PRN (22:36)
[2017-02-27] MEDS ORDERED: OXYCODONE HCL SR 10 MG TABLET PO SCH (22:45)
[2017-02-27] MEDS ORDERED: CEFTRIAXONE 1 GM/D5W RTU 1 GM/50 ML RTUPB IV ONE (23:00)
[2017-02-27] MEDS ORDERED: LEVOFLOXACIN 750 MG/D5W RTU 750 MG/150 ML RTUPB IV ONE (23:00)
[2017-02-27] MEDS ORDERED: PROMETHAZINE HCL 25 MG TABLET PO PRN (23:41)
[2017-02-28] MEDS ORDERED: CEFTRIAXONE 1 GM/D5W RTU 0 GM/0 ML RTUPB IV ONE (01:40)
[2017-02-28 03:20] LABS: AMORPHOUS SEDIMENT,URINE TRACE /HPF; APPEARANCE,URINE CLOUDY; BILIRUBIN,URINE NEGATIVE (NEGATIVE); GLUCOSE, URINE NEGATIVE (NEGATIVE); KETONES,URINE NEGATIVE (NEGATIVE); LEUKOCYTE ESTERASE,URINE NEGATIVE (NEGATIVE); NITRITE,URINE NEGATIVE (NEGATIVE); PROTEIN,URINE NEGATIVE (NEGATIVE); URINE SPECIFIC GRAVITY 1.019
--- NOTE | 2017-02-28 06:20 | PDOC H&P ---
History of Present Illness Admission Date/PCP: 02/27/17 19:34 ANDREA HOPPER MD Patient complains of: 2d productive cough History of Present Illness: EFFIE LOUIS is a 36 year old female with breast cancer metastatic to lung and liver and 2d productive cough and vomiting. Past Medical History Cardiac Medical History: Denies: Myocardial Infarction, Hypertension Pulmonary Medical History: Reports: Asthma - TEENAGER Denies: Bronchitis, Chronic Obstructive Pulmonary Disease (COPD), Pneumonia, Tuberculosis Neurological Medical History: Reports: Migraine Denies: Seizures Malignancy Medical History: Reports: Breast Cancer - right, had mastectomy, last mammogram 1 year ago in left breast, neg GI Medical History: Reports: Gastroesophageal Reflux Disease Denies: Hiatal Hernia Musculoskeltal Medical History: Reports: Fibromyalgia Denies: Arthritis Psychiatric Medical History: Denies: Depression Hematology: Denies: Anemia, Sickle Cell Disease Past Surgical History Past Surgical History: Reports: Section - x2, Cholecystectomy, Mastectomy - Right right mastectomy with axillary node dissection, Orthopedic Surgery, Tonsillectomy, Tubal Ligation, Vascular Surgery - Left chest wall port Denies: Amputation Social History Information Source: Patient Lives with: Family Smoking Status: Never Smoker Frequency of Alcohol Use: None Hx Recreational Drug Use: No Drugs: None Hx Prescription Drug Abuse: No - Advance Directive Resuscitation Status: Full Code Family History Family History: Reviewed & Not Pertinent, DM Parental Family History Reviewed: Yes Children Family History Reviewed: Yes Sibling(s) Family History Reviewed.: Yes Medication/Allergy Home Medications: Docusate Sodium [Colace 100 mg Capsule] 100 mg PO BID 02/27/17 Fentanyl [Duragesic 25 mcg/hr Transdermal Patch] 1 patch TOP Q3D 02/27/17 Lactulose [Enulose 10 gm/15 mL Oral Solution] 30 ml PO BID 02/27/17 Ondansetron HCl [Zofran 4 mg Tablet] 4 mg PO BIDP PRN 02/27/17 Oxycodone HCl 20 mg PO Q4HP PRN 02/27/17 Oxycodone HCl [Oxycontin] 20 mg PO Q12 02/27/17 Levofloxacin [Levaquin 750 mg Tablet] 750 mg PO DAILY #5 tablet 02/28/17 Allergies/Adverse Reactions: Adhesive Bandage * [Adhesive Bandage] Allergy (Mild, Verified 02/15/17 12:38) Generalized rash adhesive tape [Adhesive Tape] Allergy (Mild, Verified 02/15/17 12:38) Generalized rash Review of Systems Constitutional: PRESENT: fever(s). ABSENT: headache(s), weight loss Nose, Mouth, and Throat: ABSENT: sore throat Cardiovascular: ABSENT: chest pain, dyspnea on exertion, orthropnea Respiratory: PRESENT: cough, sputum Gastrointestinal: PRESENT: vomiting. ABSENT: abdominal pain, constipation, diarrhea, hematochezia, melena Physical Exam Vital Signs: Temp Pulse Resp BP Pulse Ox 98.4 F 66 16 121/77 99 02/28/17 04:01 02/28/17 04:01 02/28/17 04:01 02/28/17 04:01 02/27/17 20:07 Intake & Output 02/26/17 02/27/17 02/28/17 07:59 07:59 07:59 Weight 197 lb 8.547 oz General appearance: PRESENT: no acute distress Mouth exam: PRESENT: moist Neck exam: ABSENT: lymphadenopathy, tenderness, thyromegaly, tracheal deviation Respiratory exam: PRESENT: clear to auscultation jose Cardiovascular exam: ABSENT: diastolic murmur, irregular rhythm, systolic murmur GI/Abdominal exam: ABSENT: mass, organolmegaly, tenderness Extremities exam: ABSENT: pedal edema Results Laboratory Results: Abnormal - 24 hr 02/27/17 02/27/17 02/28/17 17:22 17:22 02:48 RBC 3.62 L Hct 35.2 L RDW 14.7 H BUN 4 L Urine Urobilinogen 2.0 H Impressions: Chest X-Ray 02/27/17 17:17 IMPRESSION: Cannot exclude minimal airspace disease in the right lower lung, possibly middle lobe. Assessment & Plan - Diagnosis (1) Pneumonia Qualifiers: Pneumonia type: due to unspecified organism Laterality: right Lung location: middle lobe of lung Qualified Code(s): J18.1 - Lobar pneumonia, unspecified organism Is this a current diagnosis for this admission?: Yes Plan: wants home. Continue levaquin
--- NOTE | 2017-02-28 06:22 | PDOC DISCHARGE SUMMARY ---
General - Admit/Disc Date/PCP Admission Date/Primary Care Provider: 02/27/17 19:34 ANDREA HOPPER MD Discharge Date: 02/28/17 - Discharge Diagnosis (1) Pneumonia Is this a current diagnosis for this admission?: Yes - Additional Information Resuscitation Status: Full Code Discharge Diet: As Tolerated Discharge Activity: Activity As Tolerated Home Medications: Docusate Sodium [Colace 100 mg Capsule] 100 mg PO BID 02/27/17 Fentanyl [Duragesic 25 mcg/hr Transdermal Patch] 1 patch TOP Q3D 02/27/17 Lactulose [Enulose 10 gm/15 mL Oral Solution] 30 ml PO BID 02/27/17 Ondansetron HCl [Zofran 4 mg Tablet] 4 mg PO BIDP PRN 02/27/17 Oxycodone HCl 20 mg PO Q4HP PRN 02/27/17 Oxycodone HCl [Oxycontin] 20 mg PO Q12 02/27/17 Levofloxacin [Levaquin 750 mg Tablet] 750 mg PO DAILY #5 tablet 02/28/17 History of Present Illness Patient complains of: cough History of Present Illness: EFFIE LOUIS is a 36 year old female with breast cancer metastatic to lung and liver and 2d productive cough and vomiting. Hospital Course Hospital Course: Said she had too much to do to stay. Got zosyn vanc levaquin ceftri Physical Exam Vital Signs: Temp Pulse Resp BP Pulse Ox 98.4 F 66 16 121/77 99 02/28/17 04:01 02/28/17 04:01 02/28/17 04:01 02/28/17 04:01 02/27/17 20:07 Intake & Output 02/26/17 02/27/17 02/28/17 07:59 07:59 07:59 Weight 197 lb 8.547 oz General appearance: PRESENT: no acute distress Respiratory exam: PRESENT: clear to auscultation jose GI/Abdominal exam: ABSENT: tenderness Extremities exam: ABSENT: pedal edema Results Laboratory Results: 02/27/17 02/28/17 21:30 02:48 Lactic Acid 0.8 Urine Color YELLOW Urine Appearance CLOUDY Urine pH 8.0 Ur Specific [place] 1.019 Urine Protein NEGATIVE Urine Glucose (UA) NEGATIVE Urine Ketones NEGATIVE Urine Blood NEGATIVE Urine Nitrite NEGATIVE Ur Leukocyte Esterase NEGATIVE Urine WBC (Auto) 1 Urine RBC (Auto) 1 Impressions: Chest X-Ray 02/27/17 17:17 IMPRESSION: Cannot exclude minimal airspace disease in the right lower lung, possibly middle lobe. Qualifiers PATEINT BEING DISCHARGED WITH ANY OF THE FOLLOWING DIAGNOSIS?: No Plan Discharge Plan: home. See Ana Rosa
[2017-02-28 07:38] VITALS: BP 121/77
[2017-02-28] MEDS ORDERED: DOCUSATE SODIUM 100 MG CAPSULE PO SCH (10:00)
[2017-02-28] MEDS ORDERED: LACTULOSE SYRUP 20 GM/30 ML UDCUP PO SCH (10:00)
[2017-02-28] MEDS ORDERED: ENOXAPARIN SODIUM INJ 40 MG/0.4 ML DISP.SYRIN SUBCUT SCH (10:00)
[2017-02-28] MEDS ORDERED: FLUOXETINE HCL 20 MG CAPSULE PO SCH (10:00)
[2017-02-28] MEDS ORDERED: LEVOFLOXACIN 750 MG/D5W RTU 750 MG/150 ML RTUPB IV SCH (22:00)
[2017-02-28] MEDS ORDERED: CEFTRIAXONE 1 GM/D5W RTU 1 GM/50 ML RTUPB IV SCH (22:00)
== END 2017-02-28 08:29 | disposition home or self-care (01) ==
LOC: ER 16:20 → EH 19:34 → INTOOBSV 19:34 → 4W 20:51
PROVIDERS: ADMIT Family Medicine; ATTEND Family Medicine
DX: J18.1 Lobar pneumonia, unspecified organism (principal); R11.2 Nausea with vomiting, unspecified; C78.7 Secondary malignant neoplasm of liver and intrahepatic bile duct; C78.00 Secondary malignant neoplasm of unspecified lung; Z85.3 Personal history of malignant neoplasm of breast; Z90.11 Acquired absence of right breast and nipple; Z90.49 Acquired absence of other specified parts of digestive tract; Z98.51 Tubal ligation status; Z87.19 Personal history of other diseases of the digestive system
CPT/HCPCS: 93005; 99285; 96374; 36415; 87040; 85025; 85610; 80053; 81001; 83605; 71020; 93010; J3490 ×2; J2405; J7030; J3370; J0696; J1956; J2543

== ENCOUNTER 2017-03-13 12:18 | Day surgery (SDC) | payer MEDICAID ==
[~2017-03-13 12:18] MED LIST changes: +RINGERS SOLUTION,LACTATED 1,000 ML IV PRN
[2017-03-13] MEDS ORDERED: ACETAMINOPHEN 325 MG TABLET PO PRN (12:30)
[2017-03-13] MEDS ORDERED: CEFAZOLIN INJ 1 GM VIAL ONE (12:30)
[2017-03-13] MEDS ORDERED: CEFAZOLIN 1 GM/D5W RTU 1 GM/50 ML RTUPB IV PRN (12:30)
[2017-03-13] MEDS ORDERED: CEFAZOLIN 1 GM/D5W RTU 1 GM/50 ML RTUPB IV ONE (12:31)
[2017-03-13] MEDS ORDERED: FENTANYL CITRATE INJ/PF 100 MCG/2 ML AMPUL ONE (12:38)
[2017-03-13] MEDS ORDERED: MIDAZOLAM 2 MG/2 ML INJ ONE (12:38)
[2017-03-13] MEDS ORDERED: PROPOFOL INJ 200 MG/20 ML VIAL IV ONE ×2 (12:39→14:29)
[2017-03-13] MEDS ORDERED: ONDANSETRON HCL INJ/PF 4 MG/2 ML SDV ONE (12:39)
[2017-03-13] MEDS ORDERED: MORPHINE SULFATE 10 MG/ML INJ IV PRN (13:34)
[2017-03-13] MEDS ORDERED: FENTANYL CITRATE INJ/PF 100 MCG/2 ML AMPUL IV PRN ×3 (13:34)
[2017-03-13] MEDS ORDERED: DIPHENHYDRAMINE HCL 50 MG/ML VIAL IV PRN (13:34)
[2017-03-13] MEDS ORDERED: MEPERIDINE HCL/PF INJ 25 MG/1 ML DISP.SYRIN IV PRN (13:34)
[2017-03-13] MEDS ORDERED: PROMETHAZINE HCL INJ 25 MG/1 ML VIAL IV PRN (13:34)
[2017-03-13] MEDS ORDERED: ONDANSETRON HCL INJ/PF 4 MG/2 ML SDV IV PRN (14:26)
[2017-03-13] MEDS ORDERED: OXYCODONE-ACETAMINOPHEN 5-325 MG TABLET PO PRN (14:26)
--- NOTE | 2017-03-13 14:26 | PDOC DISCHARGE SUMMARY ---
Discharge Summary (SDC) - Discharge Final Diagnosis: metastatic breast cancer Date of Surgery: 03/13/17 Discharge Date: 03/13/17 Condition: Stable Treatment or Instructions: You may shower in 48 hours. Do not remove paper bandaids (steri strips) until follow up appointment in 10-14 days. Call clinic if you notice any unusual bleeding, redness, difficulty breathing or swelling around the incision or neck. [facility]: [phone] Prescriptions: Ketorolac Tromethamine [Toradol 10 mg Tablet] 10 mg PO Q6HP PRN #20 tablet PRN Reason: Referrals: ANDREA HOPPER MD [Primary Care Provider] - Discharge Diet: As Tolerated Discharge Activity: No Lifting Over 10 Pounds Report the Following to Your Physician Immediately: Shortness of Breath, Fever over 101 Degrees, Unusual Bleeding, Redness, Swelling, Drainage-Foul Smelling
--- NOTE | 2017-03-13 14:27 | Operative Report ---
Operative Report DATE OF SURGERY: 03/13/17 PREOPERATIVE DIAGNOSIS: Metastatic breast carcinoma POSTOPERATIVE DIAGNOSIS: Same OPERATION: Focused ultrasound of the left neck. Single-chamber [id number] catheter insertion left subclavicular position. Interpretation of intraoperative fluoroscopy SURGEON: ZHOU CHAMBERLAIN CLIN APPLICATION SPECIALIST: MARIA DEL CARMEN PETER ANESTHESIA: Moderate Sedation TISSUE REMOVED OR ALTERED: See below COMPLICATIONS: None ESTIMATED BLOOD LOSS: Scant INTRAOPERATIVE FINDINGS: See below PROCEDURE: The patient was in the preop holding area with the left neck was prepped and draped in sterile fashion. She was then taken to the operating room where LMAC anesthesia was induced. Left neck chest wall prepped and draped in sterile fashion, patient had rotated to the right. Surgical plan surgical timeout conducted Using ultrasound as a guide, the left internal jugular vein was cannulated with the micro needle and wire after anesthetizing skin with 1% lidocaine plain Suitable site for placement of the port was chosen which was consistent with the previous port placement in the lateral subclavian position. The skin was anesthetized with a 1% lidocaine with epinephrine, and a 2-1/2 cm incision was made over the previous scar. Using electrocautery, a subcutaneous pocket was developed large enough to accommodate a dual chamber port. The catheter was then turned to the appropriate length, tunneled between the 2 incisions, then attached to the port with the plastic ring. Port was then tucked into the subclavian pocket. The micro needle was switched over to a conventional 0.030 inch guidewire under fluoroscopic guidance. We then placed the 8 Divehi dilator introducer sheath sequentially over the wire, then the dilator and wire were removed, the catheter which had been trimmed to approximately 24 cm in length was threaded into the left internal jugular vein. Under fluoroscopic guidance there is no kinking of the catheter and the tip of the catheter was at the junction of the superior vena cava and innominate vein. We aspirated the catheter with the David needle and there was excellent aspiration and flushed without difficulty. Wounds were closed with 3-0 Vicryl benzoin and Steri-Strips. Patient tolerated the procedure well ; was taken to the recovery room in stable condition. Portable upright chest x-ray pending at time dictation. The physician car rental sales assistant, Ms. Chavez, provided assistance during this case by: Assisting , retracting tissue, instillation of local anesthesia and closure of skin incisions.
[2017-03-13] MEDS ORDERED: ACETAMINOPHEN 100 ML IV ONE (14:45)
--- NOTE | 2017-03-13 15:25 | RADIOLOGY REPORT (SQ) ---
EXAM DESCRIPTION: CHEST SINGLE VIEW COMPLETED DATE/TIME: 03/13/2017 2:51 pm REASON FOR STUDY: S/P PORT COMPARISON: 02/27/2017. NUMBER OF VIEWS: One view. TECHNIQUE: Single frontal radiographic view of the chest acquired. LIMITATIONS: None. FINDINGS: LUNGS AND PLEURA: Patchy left basilar opacity, airspace disease with small pleural effusio n having developed since 02/27/2017. No pneumothorax post port placement. Lungs otherwise clear. MEDIASTINUM AND HILAR STRUCTURES: No masses. Contour normal. HEART AND VASCULAR STRUCTURES: Heart normal in size. Normal vasculature. BONES: No acute findings. HARDWARE: Left internal jugular port, tip to the superior vena cava. OTHER: No other significant finding. IMPRESSION: 1. Left basilar infiltrate and small effusion. 2. Appropriate left port. No pneumothor ax. TECHNICAL DOCUMENTATION: JOB ID: [id number] [employer]- All Rights Reserved
--- NOTE | 2017-03-13 16:02 | RADIOLOGY REPORT (SQ) ---
EXAM DESCRIPTION: FLUORO/CV PLACEMENT COMPLETED DATE/TIME: 03/13/2017 2:51 pm REASON FOR STUDY: PORT-A-CATH PLACEMENT LEFT SIDE ASSISTED W/ FLUORO IN OR C50.511 MALIG NEOPLM OF LOWER-OUTER QUADRANT OF RIGHT FEMALE COMPARISON: PET-CT 01/20/2017, two-view chest 02/27/2017 FLUOROSCOPY TIME: 0.1 minutes 1 digital image saved to PACS. TECHNIQUE: Intra procedural imaging and fluoro LIMITATIONS: None. PROCEDURE: Intra procedural imaging and fluoro in the OR during placement of a left-sided permanent central line by Dr. Marie. Please see the operative report for further detail IMPRESSION: Intra procedural imaging and fluoro COMMENT: Quality ID [id number]: Final reports for procedures using fluoroscopy that document radiation exp osure indices, or exposure time and number of fluorographic images (if radiation exposure indices are not available) TECHNICAL DOCUMENTATION: JOB ID: [id number] [employer]- All Rights Reserved
[2017-03-13 17:01] VITALS: BP 124/83
== END 2017-03-13 16:45 | disposition home or self-care (01) ==
LOC: OROUT 12:18
PROVIDERS: ATTEND Surgery
PROC: 05H633Z Insertion of Infusion Device into Left Subclavian Vein, Percutaneous Approach (ICD-10-PCS; principal; 2017-03-13 14:30)
DX: C78.01 Secondary malignant neoplasm of right lung (principal); C78.02 Secondary malignant neoplasm of left lung; Z85.3 Personal history of malignant neoplasm of breast; I89.0 Lymphedema, not elsewhere classified; M79.7 Fibromyalgia; J44.9 Chronic obstructive pulmonary disease, unspecified; Z87.891 Personal history of nicotine dependence
CPT/HCPCS: 36561; 81025; 71010; 77001; C1752; C1788; J2250; J0690; J3010; J3490; J2405; J2704; J1642; J0131; 532

== ENCOUNTER → 2017-03-14 | Outpatient (CLI) | payer MEDICAID ==
--- NOTE | 2017-03-15 08:59 | RADIOLOGY REPORT (SQ) ---
EXAM DESCRIPTION: MRI HEAD COMBO COMPLETED DATE/TIME: 03/14/2017 6:26 pm REASON FOR STUDY: MALIGNANT NEOPLASM OF LOWER-OUTER QUADRANT OF RIGHT FEMALE BREAST C50.511 MALIG N EOPLM OF LOWER-OUTER QUADRANT OF RIGHT FEMALE COMPARISON: None. TECHNIQUE: Multiplanar imaging includes noncontrasted T1, T2, FLAIR, diffusion with ADC map and post gadolinium contrast T1 sequences. Images stored on PACS. CONTRAST TYPE AND DOSE: 15 mL Multihance. RENAL FUNCTION: GFR > 60. LIMITATIONS: None. FINDINGS: ANATOMY: No anomalies. Normal vascular flow voids. Pituitary fossa normal. CSF SPACES: Normal in size and contour. No hemorrhage. CEREBRUM: Peripheral rim enhancing nodules are present in the right posterior frontal and left log hauler ior frontal oreilly-white junction worrisome for metastatic disease to the brain as follows: 7 to 8 mm right precentral gyrus axial series 15, image 107 4 mm Left posterior frontal oreilly-white junction axial series 15, image 108 4 mm Right posterior frontal oreilly-white junction axial series 15, image 99 POSTERIOR FOSSA: No signal alteration. No hemorrhage. No edema, masses, or mass effect. Internal samantha tory canals, cerebellopontine angles, mastoids normal. No enhancing lesions. No abnormal enhancement post contrast. DIFFUSION IMAGING: Negative for acute or subacute infarction. ORBITS: No masses. Globes normal. PARANASAL SINUSES: No fluid levels. Mucosa normal. OTHER: No other significant finding. IMPRESSION: Small brain parenchymal metastatic lesions as above. EVIDENCE OF ACUTE STROKE: NO. TECHNICAL DOCUMENTATION: JOB ID: [id number] [employer]- All Rights Reserved
== END ==
LOC: RAD 03-13 11:02
PROVIDERS: ATTEND Internal Medicine
DX: C50.511 Malignant neoplasm of lower-outer quadrant of right female breast (principal)
CPT/HCPCS: 70553; A9577

== ENCOUNTER 2017-04-01 08:01 | Emergency (ER) | payer MEDICAID ==
--- NOTE | 2017-04-01 08:27 | ER Document Report ---
ED Respiratory Problem - General Chief Complaint: Shortness Of Breath Stated Complaint: DIFFICULTY BREATHING Time Seen by Provider: 04/01/17 08:27 Mode of Arrival: Ambulatory Information source: Patient Notes: 36 yo female with stage 4 metastatic breast cancer to brain, stomachl, lungs, and feeling bad since yesterday with cough, vomiting, chest on fire all night. Headache. ONcologist wasn't able to give IV fluid this week due to "shortage", usually gets 3 x week. Short of breath with activities, forgetting alot. No diarrhea. No fever. Pneumonia weeks ago. Palliative care nurse wanted her to get left leg checked for possible DVT this past week because of swelling ( recurred sat. night) and pain to walk on it but she was too week to go. HX DVT left in past. No PE hx. No anticoagulants now. Taking Ibrance x 3 months. Oxycodone 20mg every 4 hr as needed. TRAVEL OUTSIDE OF THE [place] IN LAST 30 DAYS: No - Related Data Allergies/Adverse Reactions: Adhesive Bandage * [Adhesive Bandage] Allergy (Mild, Verified 03/13/17 13:12) Generalized rash adhesive tape [Adhesive Tape] Allergy (Mild, Verified 03/13/17 13:12) Generalized rash Past Medical History - General Information source: Patient - Social History Smoking Status: Never Smoker Frequency of alcohol use: None Drug Abuse: None Lives with: Family - she and her kids Family History: Reviewed & Not Pertinent, DM Patient has suicidal ideation: No Patient has homicidal ideation: No Pulmonary Medical History: Reports: Hx Asthma - TEENAGER Neurological Medical History: Reports: Hx Migraine Renal/ Medical History: Denies: Hx Peritoneal Dialysis Malignancy Medical History: Reports: Hx Brain Cancer, Hx Breast Cancer - right, had mastectomy, last mammogram 1 year ago in left breast, neg, Hx Lung Cancer, Other - stomach cancer GI Medical History: Reports: Hx Gastroesophageal Reflux Disease. Denies: Hx Hiatal Hernia Musculoskeltal Medical History: Denies Hx Arthritis, Reports Hx Fibromyalgia Psychiatric Medical History: Denies: Hx Depression Infectious Medical History: Past Surgical History: Reports: Hx Section - x2, Hx Cholecystectomy, Hx Mastectomy - Right right mastectomy with axillary node dissection, Hx Orthopedic Surgery, Hx Tonsillectomy, Hx Tubal Ligation, Hx Vascular Surgery - Left chest wall port - Immunizations Hx Diphtheria, Pertussis, Tetanus Vaccination: Yes Hx Pneumococcal Vaccination: 04/30/13 Review of Systems - Review of Systems Constitutional: See HPI EENT: No symptoms reported Cardiovascular: No symptoms reported Respiratory: See HPI Gastrointestinal: No symptoms reported Genitourinary: No symptoms reported Female Genitourinary: No symptoms reported Musculoskeletal: See HPI Skin: No symptoms reported Hematologic/Lymphatic: No symptoms reported Neurological/Psychological: No symptoms reported Physical Exam - Vital signs Vitals: Temp Pulse Resp BP Pulse Ox 97.6 F 98 23 H 126/92 H 98 04/01/17 08:07 04/01/17 08:07 04/01/17 08:07 04/01/17 08:07 04/01/17 08:07 Interpretation: Normal - General General appearance: Appears well, Alert - HEENT Head: Normocephalic, Atraumatic Eyes: Normal Pupils: PERRL - Respiratory Respiratory status: No respiratory distress Chest status: Nontender Breath sounds: Rales - few crackles bases Chest palpation: Normal - Cardiovascular Rhythm: Regular Heart sounds: Normal auscultation Murmur: No - Abdominal Inspection: Normal Distension: No distension Bowel sounds: Normal Tenderness: Nontender Organomegaly: No organomegaly - Back Back: Normal, Nontender - Extremities General upper extremity: Normal inspection, Nontender, Normal color, Normal ROM , Normal temperature General lower extremity: Normal inspection, Nontender, Normal color, Normal ROM , Normal temperature, Normal weight bearing. No: Spring's sign - Neurological Neuro grossly intact: Yes Cognition: Normal Orientation: AAOx4 [place] Coma Scale Eye Opening: Spontaneous [place] Coma Scale Verbal: Oriented [place] Coma Scale Motor: Obeys Commands [place] Coma Scale Total: 15 Speech: Normal Motor strength normal: LUE, RUE, LLE, RLE Sensory: Normal - Psychological Associated symptoms: Normal affect, Normal mood - Skin Skin Temperature: Warm Skin Moisture: Dry Skin Color: Normal Course - Re-evaluation Re-evalutation: 04/01/17 10:40 VDUS negative. Pt states that the nebulizer helped the burning and decreased the cough. 04/01/17 12:10 will prescribe the nebulizer and albuterol for the pt. she wants to stay on the oxycodone 20mg pills, not the patch, I offered to call dr patrick about restarting the patch which she had mentioned helped with the pain better. Labs OK,urine pending. 04/01/17 12:49 Urine is not infected I will send the patient home as planned. - Vital Signs Vital signs: Temp Pulse Resp BP Pulse Ox 98.6 F 54 L 12 112/68 100 04/01/17 13:22 04/01/17 13:22 04/01/17 13:22 04/01/17 13:22 04/01/17 13:22 - Laboratory Result Diagrams: 04/01/17 09:24 04/01/17 09:24 Laboratory results interpreted by me: 04/01/17 04/01/17 09:24 09:24 MCV 98 H MCH 34.3 H RDW 18.4 H Glucose 119 H AST 13 L Discharge - Discharge Clinical Impression: metastatic breast cancer, Burning chest pain, Weakness, lung, stomach, breast, brain cancer, malaise, Dehydration Fatigue Qualifiers: Fatigue type: unspecified Qualified Code(s): R53.83 - Other fatigue Condition: Good Disposition: HOME, SELF-CARE Instructions: Dehydration ([facility]), Fatigue ([facility]), Inhaled Bronchodilators ([facility]), Malaise ([facility]), Weakness ([facility]) Additional Instructions: to er if worsening symptoms the albuterol nebulizer you can use upt ot every 4 hours as needed drink plenty of fluids see your doctor tomorrow Please complete the patient satisfaction survey if you get one, and return it.. If you do not receive a survey, then you can go to the [facility] website, [email or web address] and place your comments about your very good care. Thank you very much. It was a pleasure being your medical provider today. Prescriptions: Albuterol Sulfate [Ventolin 0.083% Neb 2.5 mg/3 mL Ampul] 2.5 mg NEB Q4HP PRN # 25 vial PRN Reason: Nebulizer [Nebulizer Machine] 1 each MC ASDIR PRN #1 kit PRN Reason: Referrals: ANDREA HOPPER MD [Primary Care Provider] - Follow up tomorrow MARTINEZ MORATAYA MD [ACTIVE STAFF] - Follow up tomorrow
[2017-04-01] MEDS ORDERED: NORMAL SALINE 1000 ML 2,000 ML IV ONE (08:48)
[2017-04-01] MEDS ORDERED: ONDANSETRON HCL INJ/PF 4 MG/2 ML SDV IV ONE (08:48)
--- NOTE | 2017-04-01 09:00 | RADIOLOGY REPORT (SQ) ---
EXAM DESCRIPTION: CHEST PA/LAT COMPLETED DATE/TIME: 04/01/2017 8:49 am REASON FOR STUDY: trouble breathing, hx breast ca mets COMPARISON: CT angio chest 01/11/2017 PET-CT 01/20/2017 Chest films 02/27/2017, 03/13/2017 EXAM PARAMETERS: NUMBER OF VIEWS: two views TECHNIQUE: Digital Frontal and Lateral radiographic views of the chest acquired. RADIATION DOSE: NA LIMITATIONS: none FINDINGS: LUNGS AND PLEURA: Spotty ill-defined lung parenchymal opacities from lung metastatic nodul es. No dense consolidation worrisome for pneumonia. No pleural effusion. No pneumothorax. MEDIASTINUM AND HILAR STRUCTURES: No masses or contour abnormalities. HEART AND VASCULAR STRUCTURES: Heart normal size. No evidence for failure. BONES: No acute findings. HARDWARE: Left-sided permanent central line tip in the superior vena cava OTHER: No other significant finding. IMPRESSION: No definite acute changes. TECHNICAL DOCUMENTATION: JOB ID: [id number] [employer].- All Rights Reserved
[2017-04-01] MEDS ORDERED: ALBUTEROL SULFATE 0.083% NEB 2.5 MG/3 ML AMPUL NEB ONE (09:03)
[2017-04-01 09:35] LABS: ABSOLUTE EOSINOPHILS # (AUTO) 0.1 10^3/uL (0.0-0.6); ABSOLUTE LYMPHOCYTES (AUTO) 3.6 10^3/uL (0.5-4.7); ABSOLUTE MONOCYTES (AUTO) 0.4 10^3/uL (0.1-1.4); ABSOLUTE NEUT (AUTO) 4.5 10^3/uL (1.7-8.2); BASOPHILS % (AUTO) 0.3 % (0-2); HEMATOCRIT 38.4 % (36.0-47.0); HEMOGLOBIN 13.4 g/dL (12.0-15.5); HGB HCT DIFFERENCE 1.8; LYMPHOCYTES % (AUTO) 41.2 % (13-45); MEAN CORPUSCULAR HEMOGLOBIN 34.3 pg (27.0-33.4); MEAN CORPUSCULAR HGB CONC 34.9 g/dL (32.0-36.0); MEAN CORPUSCULAR VOLUME 98 fl (80-97); MONOCYTES % (AUTO) 5.1 % (3-13); RED CELL DISTRIBUTION WIDTH 18.4 % (11.5-14.0); SEGMENTED NEUTROPHILS % (AUTO) 52.4 % (42-78); WHITE BLOOD COUNT 8.6 10^3/uL (4.0-10.5)
[2017-04-01] MEDS ORDERED: MORPHINE SULFATE 10 MG/ML INJ IV ONE (09:37)
[2017-04-01 09:46] LABS: ALANINE AMINOTRANSFERASE 32 U/L (9-52); ALBUMIN 3.8 g/dL (3.5-5.0); ALKALINE PHOSPHATASE 53 U/L (38-126); ANION GAP 12 (5-19); ASPARTATE AMINO TRANSFERASE 13 U/L (14-36); BILIRUBIN,DIRECT 0.3 mg/dL (0.0-0.4); BILIRUBIN,TOTAL 0.5 mg/dL (0.2-1.3); BLOOD UREA NITROGEN 14 mg/dL (7-20); CALCIUM 9.4 mg/dL (8.4-10.2); CARBON DIOXIDE 27 mmol/L (22-30); CHLORIDE 102 mmol/L (98-107); CREATININE RESULT 0.65 mg/dL (0.52-1.25); GLUCOSE 119 mg/dL (75-110); POTASSIUM 3.9 mmol/L (3.6-5.0); SODIUM 140.6 mmol/L (137-145); TOTAL PROTEIN 6.7 g/dL (6.3-8.2)
--- NOTE | 2017-04-01 10:30 | XCELERA REPORT ---
[address] [address] Lower Extremity Venous Evaluation Name: EFFIE LOUIS Age: 36 yrs Gender: Female : 1980 Patient Status: Emergency Patient Location: ER Study Date: 04/01/2017 09:50 AM Procedure: Color flow and duplex imaging of the veins of the left lower extremity as well as the right Common Femoral vein. Reason For Study: left leg possible dvt Ordering Physician: RANDY SONI Performed By: Lacie Almanza Right Sided Venous Evaluation The right common femoral vein is fully compressible. Spontaneous and phasic flow is present in the right common femoral vein. Left Sided Venous Evaluation Normal vessel filling wall to wall, compression and augmentation as well as Colour flow down to the infrageniculate veins. Interpretation Summary No duplex evidence of DVT or obstruction in the left lower extremity nor in the right Common Femoral vein. : RANDY SONI > Dre Hensley
[2017-04-01 12:45] LABS: AMORPHOUS SEDIMENT,URINE TRACE /HPF; APPEARANCE,URINE SLIGHTLY-CLOUDY; BILIRUBIN,URINE NEGATIVE (NEGATIVE); GLUCOSE, URINE NEGATIVE (NEGATIVE); KETONES,URINE NEGATIVE (NEGATIVE); LEUKOCYTE ESTERASE,URINE NEGATIVE (NEGATIVE); NITRITE,URINE NEGATIVE (NEGATIVE); PROTEIN,URINE NEGATIVE (NEGATIVE); URINE SPECIFIC GRAVITY 1.024; UROBILINOGEN,URINE NEGATIVE mg/dL (<2.0)
[2017-04-01 13:25] VITALS: BP 112/68
== END 2017-04-01 14:08 | disposition home or self-care (01) ==
LOC: ER 08:01
DX: R06.02 Shortness of breath (principal); C71.9 Malignant neoplasm of brain, unspecified; C16.9 Malignant neoplasm of stomach, unspecified; C78.02 Secondary malignant neoplasm of left lung; C78.01 Secondary malignant neoplasm of right lung; C79.81 Secondary malignant neoplasm of breast; R51 Headache; Z86.718 Personal history of other venous thrombosis and embolism; Z90.49 Acquired absence of other specified parts of digestive tract; Z90.11 Acquired absence of right breast and nipple
CPT/HCPCS: 36591; 94640; 99285; 96361; 96374; 96375; 36415; 87086; 85025; 80053; 81001; 93971 ×2; 71020; J2270; J2405; J7030

== ENCOUNTER 2017-04-22 09:27 | Emergency (ER) | payer MEDICAID ==
[2017-04-22] MEDS ORDERED: NORMAL SALINE 1000 ML 1,000 ML IV ONE (10:15)
--- NOTE | 2017-04-22 10:20 | ER Document Report ---
ED Medical Screen (RME) - General Chief Complaint: Rectal Bleeding Stated Complaint: RECTAL BLEEDING Time Seen by Provider: 04/22/17 10:14 Notes: Patient states that she has stage IV breast cancer and just finished brain radiation. She states that she does take daily chemotherapy, Ibranz. Patient states she started with abdominal crampy pain today and rectal bleeding that is bright red. She denies being on any type of blood thinner. She denies any recent antibiotics. She also states that she started with a productive cough yesterday. TRAVEL OUTSIDE OF THE [place] IN LAST 30 DAYS: No - Related Data Allergies/Adverse Reactions: Adhesive Bandage * [Adhesive Bandage] Allergy (Mild, Verified 04/22/17 09:41) Generalized rash adhesive tape [Adhesive Tape] Allergy (Mild, Verified 04/22/17 09:41) Generalized rash Past Medical History - Past Medical History Cardiac Medical History: Denies: Hx Coronary Artery Disease, Hx Heart Attack, Hx Hypertension Pulmonary Medical History: Reports: Hx Asthma - TEENAGER Denies: Hx Bronchitis, Hx COPD, Hx Pneumonia, Hx Tuberculosis Neurological Medical History: Reports: Hx Migraine. Denies: Hx Cerebrovascular Accident, Hx Seizures Renal/ Medical History: Denies: Hx Peritoneal Dialysis Malignancy Medical History: Reports: Hx Brain Cancer, Hx Breast Cancer - right, had mastectomy, last mammogram 1 year ago in left breast, neg, Hx Lung Cancer GI Medical History: Reports: Hx Gastroesophageal Reflux Disease. Denies: Hx Hiatal Hernia Musculoskeltal Medical History: Denies Hx Arthritis, Reports Hx Fibromyalgia Psychiatric Medical History: Denies: Hx Depression Infectious Medical History: Past Surgical History: Reports: Hx Section - x2, Hx Cholecystectomy, Hx Mastectomy - Right right mastectomy with axillary node dissection, Hx Orthopedic Surgery, Hx Tonsillectomy, Hx Tubal Ligation, Hx Vascular Surgery - Left chest wall port - Immunizations Hx Diphtheria, Pertussis, Tetanus Vaccination: Yes History of Influenza Vaccine for 03/2017 - 08/2017 Season: No Physical Exam - Vital signs Vitals: Temp Pulse Resp BP Pulse Ox 98.6 F 94 24 H 135/99 H 99 04/22/17 09:41 04/22/17 09:41 04/22/17 09:41 04/22/17 09:41 04/22/17 09:41 Course - Vital Signs Vital signs: Temp Pulse Resp BP Pulse Ox 98.6 F 94 24 H 135/99 H 99 04/22/17 09:41 04/22/17 09:41 04/22/17 09:41 04/22/17 09:41 04/22/17 09:41
--- NOTE | 2017-04-22 10:54 | ER Document Report ---
ED GI Bleed / Rectal Pain - General Chief Complaint: Rectal Bleeding Stated Complaint: RECTAL BLEEDING Time Seen by Provider: 04/22/17 10:14 Mode of Arrival: Ambulatory Information source: Patient Notes: 36 yo female with metastatic breast cancer to brain, lung. Onset sharp abd pain saturday, saturday it was worse, face swelling, went to bathrrom with stool urge, 1st episode of rectal bleeding red with BM, toilet bowl red. This has occurred with 2 bowel movements, 3rd time only blood no stool. Weaning of prednisone (rx for 10 days) Eating, no nausea or vomiting. No anal pain. Dr Moralez sent over, she completed brain radiation saturday. Not getting the homrone woodrow shot for a while. No vaginal bleeding. No hx ulcer polopys or recent colonoscopy (eweje-did during breast cancer dx). TRAVEL OUTSIDE OF THE [place] IN LAST 30 DAYS: No - Related Data Allergies/Adverse Reactions: Adhesive Bandage * [Adhesive Bandage] Allergy (Mild, Verified 04/22/17 09:41) Generalized rash adhesive tape [Adhesive Tape] Allergy (Mild, Verified 04/22/17 09:41) Generalized rash Home Medications: Current Home Medications Dexamethasone [Dexamethasone] 1 tab PO TID 04/22/17 [History] Omeprazole [Omeprazole] 1 cap PO DAILY 04/22/17 [History] Past Medical History - General Information source: Patient - Social History Smoking Status: Never Smoker Frequency of alcohol use: None Drug Abuse: None Lives with: Family Family History: Reviewed & Not Pertinent, DM Patient has suicidal ideation: No Patient has homicidal ideation: No Pulmonary Medical History: Reports: Hx Asthma - TEENAGER Neurological Medical History: Reports: Hx Migraine Renal/ Medical History: Denies: Hx Peritoneal Dialysis Malignancy Medical History: Reports: Hx Brain Cancer, Hx Breast Cancer - right, had mastectomy, last mammogram 1 year ago in left breast, neg, Hx Lung Cancer GI Medical History: Reports: Hx Gastroesophageal Reflux Disease Musculoskeltal Medical History: Reports Hx Fibromyalgia Infectious Medical History: Past Surgical History: Reports: Hx Section - x2, Hx Cholecystectomy, Hx Mastectomy - Right right mastectomy with axillary node dissection, Hx Orthopedic Surgery, Hx Tonsillectomy, Hx Tubal Ligation, Hx Vascular Surgery - Left chest wall port - Immunizations Hx Diphtheria, Pertussis, Tetanus Vaccination: Yes Hx Pneumococcal Vaccination: 04/30/13 Review of Systems - Review of Systems Constitutional: No symptoms reported EENT: See HPI Cardiovascular: No symptoms reported Respiratory: No symptoms reported Gastrointestinal: See HPI Genitourinary: No symptoms reported Female Genitourinary: No symptoms reported Musculoskeletal: No symptoms reported Skin: No symptoms reported Hematologic/Lymphatic: No symptoms reported Neurological/Psychological: No symptoms reported Physical Exam - Vital signs Vitals: Temp Pulse Resp BP Pulse Ox 98.6 F 94 24 H 135/99 H 99 04/22/17 09:41 04/22/17 09:41 04/22/17 09:41 04/22/17 09:41 04/22/17 09:41 Interpretation: Normal - General General appearance: Appears well, Alert - HEENT Head: Normocephalic, Atraumatic Eyes: Normal Pupils: PERRL Mucous membranes: Normal Neck: Supple. No: Lymphadenopathy - Respiratory Respiratory status: No respiratory distress Chest status: Nontender Breath sounds: Normal Chest palpation: Normal - Cardiovascular Rhythm: Regular Heart sounds: Normal auscultation Murmur: No - Abdominal Inspection: Normal Distension: No distension Bowel sounds: Normal Tenderness: Nontender Organomegaly: No organomegaly - Rectal Tenderness: Yes Hemorrhoids: External - bleeding with palpation - Back Back: Normal, Nontender. No: CVA tenderness - Extremities General upper extremity: Normal inspection, Nontender, Normal color, Normal ROM , Normal temperature General lower extremity: Normal inspection, Nontender, Normal color, Normal ROM , Normal temperature, Normal weight bearing. No: Spring's sign - Neurological Neuro grossly intact: Yes Cognition: Normal Orientation: AAOx4 [place] Coma Scale Eye Opening: Spontaneous [place] Coma Scale Verbal: Oriented [place] Coma Scale Motor: Obeys Commands [place] Coma Scale Total: 15 Speech: Normal Motor strength normal: LUE, RUE, LLE, RLE Sensory: Normal - Psychological Associated symptoms: Normal affect, Normal mood - Skin Skin Temperature: Warm Skin Moisture: Dry Skin Color: Normal Skin irregularity: negative: Rash Course - Re-evaluation Re-evalutation: 04/22/17 11:[address] fraire, get IV contrast ct abd/pelvis 04/22/17 CT negative. suppository helped the anal discomfort. Pt feels better. Ready to go home. - Vital Signs Vital signs: Temp Pulse Resp BP Pulse Ox 98.9 F 71 15 152/67 H 97 04/22/17 14:36 04/22/17 14:36 04/22/17 14:36 04/22/17 14:36 04/22/17 14:36 - Laboratory Result Diagrams: 04/22/17 11:27 04/22/17 11:27 Laboratory results interpreted by me: 04/22/17 04/22/17 04/22/17 11:27 11:27 12:30 RBC 3.27 L Hgb 11.4 L Hct 32.9 L MCV 101 H MCH 35.0 H RDW 19.1 H Seg Neutrophils % 88.5 H Lymphocytes % 7.4 L Sodium 134.5 L Glucose 149 H Total Protein 5.9 L Ur Leukocyte Esterase SMALL H Discharge - Discharge Clinical Impression: Bleeding external hemorrhoids, abdominal pain Condition: Good Disposition: HOME, SELF-CARE Instructions: Abdominal Pain ([facility]), HC Hemorrhoid Cream ([facility]), Hemorrhoids ([facility] ) Additional Instructions: steroid suppository to help heal the bleeding hemorrhoid to er any concerns copy of labs and imaging given to you Please complete the patient satisfaction survey if you get one, and return it.. If you do not receive a survey, then you can go to the [facility] website, [email or web address] and place your comments about your very good care. Thank you very much. It was a pleasure being your medical provider today. Prescriptions: Phenylephrine HCl [Anusol Suppository] 1 supp.rect DC BID #[id number] supp.rect Referrals: ANDREA HOPPER MD [Primary Care Provider] - Follow up as needed
--- NOTE | 2017-04-22 11:02 | RADIOLOGY REPORT (SQ) ---
EXAM DESCRIPTION: CHEST PA/LAT COMPLETED DATE/TIME: 04/22/2017 10:38 am REASON FOR STUDY: breast cancer/cough/ Known pulmonary metastasis COMPARISON: 04/01/2017 chest x-ray and 04/12/2017 CT chest EXAM PARAMETERS: NUMBER OF VIEWS: two views TECHNIQUE: Digital Frontal and Lateral radiographic views of the chest acquired. RADIATION DOSE: NA LIMITATIONS: none FINDINGS: LUNGS AND PLEURA: Continued streaky pulmonary density right lung base. Stable. No large pleural effusion. No pneumothorax. MEDIASTINUM AND HILAR STRUCTURES: Stable. HEART AND VASCULAR STRUCTURES: The BONES: No acute findings. HARDWARE: Port on left. OTHER: No other significant finding. IMPRESSION: Stable appearance. Streaky density right base stable. TECHNICAL DOCUMENTATION: JOB ID: [id number] [employer]- All Rights Reserved
[2017-04-22] MEDS ORDERED: HYDROCORTISONE ACETATE 25 MG SUPP.RECT PR ONE (11:14)
[2017-04-22 11:41] LABS: ABSOLUTE EOSINOPHILS # (AUTO) 0.1 10^3/uL (0.0-0.6); ABSOLUTE LYMPHOCYTES (AUTO) 0.7 10^3/uL (0.5-4.7); ABSOLUTE MONOCYTES (AUTO) 0.3 10^3/uL (0.1-1.4); ABSOLUTE NEUT (AUTO) 7.8 10^3/uL (1.7-8.2); BASOPHILS % (AUTO) 0.4 % (0-2); EOSINOPHILS % (AUTO) 0.6 % (0-6); HEMATOCRIT 32.9 % (36.0-47.0); HEMOGLOBIN 11.4 g/dL (12.0-15.5); HGB HCT DIFFERENCE 1.3; LYMPHOCYTES % (AUTO) 7.4 % (13-45); MEAN CORPUSCULAR HGB CONC 34.7 g/dL (32.0-36.0); MEAN CORPUSCULAR VOLUME 101 fl (80-97); MONOCYTES % (AUTO) 3.1 % (3-13); RED BLOOD COUNT 3.27 10^6/uL (3.72-5.28); RED CELL DISTRIBUTION WIDTH 19.1 % (11.5-14.0); SEGMENTED NEUTROPHILS % (AUTO) 88.5 % (42-78); WHITE BLOOD COUNT 8.8 10^3/uL (4.0-10.5)
[2017-04-22 11:45] LABS: PROTHROMBIN TIME 13.1 SEC (11.4-15.4)
[2017-04-22 12:06] LABS: ALANINE AMINOTRANSFERASE 40 U/L (9-52); ALBUMIN 3.6 g/dL (3.5-5.0); ALKALINE PHOSPHATASE 58 U/L (38-126); ANION GAP 5 (5-19); ASPARTATE AMINO TRANSFERASE 18 U/L (14-36); BILIRUBIN,DIRECT 0.2 mg/dL (0.0-0.4); BILIRUBIN,TOTAL 0.4 mg/dL (0.2-1.3); BLOOD UREA NITROGEN 11 mg/dL (7-20); CALCIUM 8.8 mg/dL (8.4-10.2); CARBON DIOXIDE 30 mmol/L (22-30); CHLORIDE 100 mmol/L (98-107); CREATININE RESULT 0.61 mg/dL (0.52-1.25); GLUCOSE 149 mg/dL (75-110); LIPASE 45.8 U/L (23-300); POTASSIUM 4.5 mmol/L (3.6-5.0); SODIUM 134.5 mmol/L (137-145); TOTAL PROTEIN 5.9 g/dL (6.3-8.2)
--- NOTE | 2017-04-22 13:02 | RADIOLOGY REPORT (SQ) ---
EXAM DESCRIPTION: CT ABD/PELVIS WITH IV ONLY COMPLETED DATE/TIME: 04/22/2017 12:45 pm REASON FOR STUDY: abd pain, rectal bleeding COMPARISON: 04/12/2017 TECHNIQUE: CT scan of the abdomen and pelvis performed using helical scanning technique with dynamic intravenous contrast injection. No oral contrast. Images reviewed with lung, soft tissue, and bone windows. Reconstructed coronal and sagittal MPR images reviewed. Delayed images for evaluation of the urinary system also acquired. All images stored on PACS. All CT scanners at this facility use dose modulation, iterative reconstruction, and/or weight based d osing when appropriate to reduce radiation dose to as low as reasonably achievable (ALARA). [facility]: Dose Right [facility]: CareDose [facility]: Dose Right [facility]: Teradose 4D [facility]: OnSwipe CONTRAST TYPE AND DOSE: contrast/concentration: Isovue 370.00 mg/ml; Total Contrast Delivered: 99.0 ml; Total Saline Delivered: 70.0 ml RENAL FUNCTION: BUN 11 creatinine 0.6 RADIATION DOSE: Up-to-date CT equipment and radiation dose reduction techniques were employed. CTDIv ol: 12.6 - 16.8 mGy. DLP: 1581 mGy-cm.. LIMITATIONS: None. FINDINGS: LOWER CHEST: Pulmonary nodules are unchanged. LIVER: Normal size. No masses. No dilated ducts. SPLEEN: Normal size. No focal lesions. PANCREAS: No masses. No significant calcifications. No adjacent inflammation or peripancreatic fluid collections. Pancreatic duct not dilated. GALLBLADDER: Surgically absent. ADRENAL GLANDS: No significant masses or asymmetry. RIGHT KIDNEY AND URETER: No solid masses. No significant calcifications. No hydronephrosis or hyd roureter. LEFT KIDNEY AND URETER: No solid masses. No significant calcifications. No hydronephrosis or hydr oureter. AORTA AND VESSELS: No aneurysm. No dissection. Renal arteries, SMA, celiac without stenosis. RETROPERITONEUM: No retroperitoneal adenopathy, hemorrhage or masses. BOWEL AND PERITONEAL CAVITY: No masses or inflammatory changes. No free fluid or peritoneal masses. APPENDIX: Normal. PELVIS: No mass. No free fluid. Normal bladder. ABDOMINAL WALL: No masses. No hernias. BONES: No significant or acute findings. OTHER: No other significant finding. IMPRESSION: Unchanged pulmonary nodules. No acute findings in the abdomen or pelvis. TECHNICAL DOCUMENTATION: JOB ID: [id number] Quality ID # [id number]: Final reports with documentation of one or more dose reduction techniques (e.g., Au tomated exposure control, adjustment of the mA and/or kV according to patient size, use of iterative reconstruction technique) 2010 [employer]- All Rights Reserved
[2017-04-22 13:07] LABS: APPEARANCE,URINE SLIGHTLY-CLOUDY; BILIRUBIN,URINE NEGATIVE (NEGATIVE); GLUCOSE, URINE NEGATIVE (NEGATIVE); KETONES,URINE NEGATIVE (NEGATIVE); LEUKOCYTE ESTERASE,URINE SMALL (NEGATIVE); NITRITE,URINE NEGATIVE (NEGATIVE); PROTEIN,URINE NEGATIVE (NEGATIVE); URINE SPECIFIC GRAVITY 1.013; UROBILINOGEN,URINE NEGATIVE mg/dL (<2.0)
[2017-04-22 14:37] VITALS: BP 152/67
== END 2017-04-22 14:37 | disposition home or self-care (01) ==
LOC: ER 09:27
DX: K64.4 Residual hemorrhoidal skin tags (principal); K62.5 Hemorrhage of anus and rectum; R10.9 Unspecified abdominal pain; R22.0 Localized swelling, mass and lump, head; Z85.3 Personal history of malignant neoplasm of breast; Z85.118 Personal history of other malignant neoplasm of bronchus and lung; Z85.841 Personal history of malignant neoplasm of brain; Z90.11 Acquired absence of right breast and nipple; Z90.49 Acquired absence of other specified parts of digestive tract; Z98.51 Tubal ligation status
CPT/HCPCS: 36591; 99284; 86900; 86901; 36415; 86850; 83690; 85025; 85610; 85730; 80053; 81001; 71020; 74177; J3490

== ENCOUNTER 2017-05-09 10:32 | Observation (INO) | payer MEDICAID ==
--- NOTE | 2017-05-09 10:57 | ER Document Report ---
ED Medical Screen (RME) - General Chief Complaint: Abdominal Pain Stated Complaint: VOMITING Time Seen by Provider: 05/09/17 10:48 Mode of Arrival: Ambulatory Information source: Patient TRAVEL OUTSIDE OF THE [place] IN LAST 30 DAYS: No - HPI Onset: Last week Onset/Duration: Gradual Context: METASTATIC BREST Ca, S/P RAD. Tx, ON CHEMO Tx. Associated Symptoms: Cough (nonproductive), Fever, Nausea, Weakness Exacerbated by: Denies Relieved by: Denies - Related Data Allergies/Adverse Reactions: Adhesive Bandage * [Adhesive Bandage] Allergy (Mild, Verified 05/09/17 10:39) Generalized rash adhesive tape [Adhesive Tape] Allergy (Mild, Verified 05/09/17 10:39) Generalized rash Past Medical History - Past Medical History Cardiac Medical History: Denies: Hx Coronary Artery Disease, Hx Heart Attack, Hx Hypertension Pulmonary Medical History: Reports: Hx Asthma - TEENAGER Denies: Hx Bronchitis, Hx COPD, Hx Pneumonia, Hx Tuberculosis Neurological Medical History: Reports: Hx Migraine. Denies: Hx Cerebrovascular Accident, Hx Seizures Renal/ Medical History: Denies: Hx Peritoneal Dialysis Malignancy Medical History: Reports: Hx Brain Cancer, Hx Breast Cancer - right, had mastectomy, last mammogram 1 year ago in left breast, neg, Hx Lung Cancer GI Medical History: Reports: Hx Gastroesophageal Reflux Disease. Denies: Hx Hiatal Hernia Musculoskeltal Medical History: Denies Hx Arthritis, Reports Hx Fibromyalgia Psychiatric Medical History: Denies: Hx Depression Infectious Medical History: Past Surgical History: Reports: Hx Section - x2, Hx Cholecystectomy, Hx Mastectomy - Right right mastectomy with axillary node dissection, Hx Orthopedic Surgery, Hx Tonsillectomy, Hx Tubal Ligation, Hx Vascular Surgery - Left chest wall port - Immunizations Hx Diphtheria, Pertussis, Tetanus Vaccination: Yes History of Influenza Vaccine for 03/2017 - 08/2017 Season: No Review of Systems - Review of Systems Constitutional: Fever, Weakness Respiratory: Cough Gastrointestinal: Abdominal pain Genitourinary: Dysuria, Frequency, Urgency Physical Exam - Vital signs Vitals: Temp Pulse Resp BP Pulse Ox 98.1 F 83 20 108/72 99 05/09/17 10:43 05/09/17 10:43 05/09/17 10:43 05/09/17 10:43 05/09/17 10:43 Interpretation: No: Tachycardic, Tachypneic, Febrile - General General appearance: Appears well, Alert In distress: None - Respiratory Respiratory status: No respiratory distress Course - Vital Signs Vital signs: Temp Pulse Resp BP Pulse Ox 98.1 F 83 20 108/72 99 05/09/17 10:43 05/09/17 10:43 05/09/17 10:43 05/09/17 10:43 05/09/17 10:43
--- NOTE | 2017-05-09 12:29 | RADIOLOGY REPORT (SQ) ---
EXAM DESCRIPTION: ACUTE ABDOMEN SERIES COMPLETED DATE/TIME: 05/09/2017 12:12 pm REASON FOR STUDY: ABD PAIN COMPARISON: 02/16/2017 NUMBER OF VIEWS: Three views. TECHNIQUE: Frontal chest, supine abdomen and upright/decubitus abdomen radiographic images acquired. LIMITATIONS: None. FINDINGS: CHEST: There is slight haziness the right lower lung field. FREE AIR: None. No abnormal gas collections. BOWEL GAS PATTERN: Nonobstructive pattern. No dilated loops or air fluid levels. CALCIFICATIONS: No suspicious calcifications. HARDWARE: None in the abdomen. SOFT TISSUES: No gross mass or suggestion of organomegaly. BONES: No acute fracture. No worrisome bone lesions. OTHER: No other significant finding. IMPRESSION: Cannot exclude limited middle lobe infiltrate. No acute findings are seen in the abdome n. TECHNICAL DOCUMENTATION: JOB ID: [id number] [employer]- All Rights Reserved
--- NOTE | 2017-05-09 13:05 | ER Document Report ---
ED General - General Chief Complaint: Abdominal Pain Stated Complaint: VOMITING Time Seen by Provider: 05/09/17 10:48 Mode of Arrival: Ambulatory Information source: Patient Notes: Patient is a 36-year-old female currently suffering from stage IV breast cancer with metastases to the lung, abdomen, and brain. Patient was started on a new medication last as a chemotherapeutic drug. Patient complains today of some vomiting, fever 101 over the last 2 days, dysuria, runny nose, congestion, cough with yellow phlegm, and some left lateral pain to her lower left abdomen. She denies any diarrhea. She denies any headache. She denies any rash. Patient does state some intermittent blurry vision but states that this is expected after radiation treatment that she has had for 10 days. TRAVEL OUTSIDE OF THE [place] IN LAST 30 DAYS: No - HPI Onset: Other - See above Onset/Duration: Gradual Quality of pain: Achy, Burning Severity: Moderate Pain Level: 2 Associated symptoms: Other - See above Exacerbated by: Denies Relieved by: Denies Similar symptoms previously: Yes Recently seen / treated by doctor: Yes - Related Data Allergies/Adverse Reactions: Adhesive Bandage * [Adhesive Bandage] Allergy (Mild, Verified 05/09/17 10:39) Generalized rash adhesive tape [Adhesive Tape] Allergy (Mild, Verified 05/09/17 10:39) Generalized rash Past Medical History - General Information source: Patient - Social History Smoking Status: Never Smoker Cigarette use (# per day): No Chew tobacco use (# tins/day): No Smoking Education Provided: No Frequency of alcohol use: None Drug Abuse: None Family History: Reviewed & Not Pertinent, DM Patient has suicidal ideation: No Patient has homicidal ideation: No - Past Medical History Cardiac Medical History: Denies: Hx Coronary Artery Disease, Hx Heart Attack, Hx Hypertension Pulmonary Medical History: Reports: Hx Asthma - TEENAGER Denies: Hx Bronchitis, Hx COPD, Hx Pneumonia, Hx Tuberculosis Neurological Medical History: Reports: Hx Migraine. Denies: Hx Cerebrovascular Accident, Hx Seizures Renal/ Medical History: Denies: Hx Peritoneal Dialysis Malignancy Medical History: Reports: Hx Brain Cancer, Hx Breast Cancer - right, had mastectomy, last mammogram 1 year ago in left breast, neg, Hx Lung Cancer GI Medical History: Reports: Hx Gastroesophageal Reflux Disease. Denies: Hx Hiatal Hernia Musculoskeltal Medical History: Denies Hx Arthritis, Reports Hx Fibromyalgia Psychiatric Medical History: Denies: Hx Depression Infectious Medical History: Past Surgical History: Reports: Hx Section - x2, Hx Cholecystectomy, Hx Mastectomy - Right right mastectomy with axillary node dissection, Hx Orthopedic Surgery, Hx Tonsillectomy, Hx Tubal Ligation, Hx Vascular Surgery - Left chest wall port - Immunizations Hx Diphtheria, Pertussis, Tetanus Vaccination: Yes Hx Pneumococcal Vaccination: 04/30/13 Review of Systems - Review of Systems Constitutional: Fever EENT: denies: Eye discharge, Nose discharge Cardiovascular: denies: Chest pain, Palpitations Respiratory: denies: Short of breath Gastrointestinal: Vomiting. denies: Diarrhea Genitourinary: Dysuria Musculoskeletal: denies: Leg swelling Skin: Other - no hives. denies: Rash Neurological/Psychological: Other - no slurred speech -: Yes All other systems reviewed and negative Physical Exam - Vital signs Vitals: Temp Pulse Resp BP Pulse Ox 98.1 F 83 20 108/72 99 05/09/17 10:43 05/09/17 10:43 05/09/17 10:43 05/09/17 10:43 05/09/17 10:43 Interpretation: Normal Notes: Reviewed vital signs and nursing note as charted by RN. CONSTITUTIONAL: Alert and oriented and responds appropriately to questions. Well -appearing; well-nourished HEAD: Normocephalic; atraumatic EYES: PERRL; Conjunctivae clear, sclerae non-icteric ENT: Normal nose; no rhinorrhea; moist mucous membranes; pharynx without lesions noted NECK: Supple without meningismus; non-tender; no cervical lymphadenopathy, no masses CARD: Regular rate and rhythm; no murmurs, no clicks, no rubs, no gallops; symmetric distal pulses RESP: Normal chest excursion without splinting or tachypnea; breath sounds clear and equal bilaterally; no rhonchi, no rales ABD/GI: Normal bowel sounds; non-distended; soft, tender to palpation of the left lower quadrant without rebound or guarding. No palpable masses BACK: The back appears normal and is non-tender to palpation, there is no CVA tenderness EXT: Normal ROM in all joints; non-tender to palpation; no cyanosis, no effusions, no edema SKIN: No acute lesions noted NEURO: Moves all extremities equally; Motor and sensory function intact PSYCH: The patient's mood and manner are appropriate. Grooming and personal hygiene are appropriate. Course - Re-evaluation Re-evalutation: 05/09/17 13:06 Given the above history, physical, complicated past medical history, we will obtain blood, blood cultures, urine analysis, and reassess. We will obtain a three-way x-ray of the abdomen to evaluate for possible bowel obstruction. Given that the patient has intra-abdominal metastases, I believe this could be the cause of the pain. I see little utility at this time given the stage IV metastatic cancer, if there is no obvious signs of obstruction on the x-ray series, to obtain a CT scan. Patient has no headache or neck pain. I do believe bacterial meningitis to be unlikely. 05/09/17 13:53 I was able to call and speak directly with Dr. Sheffield, the patient's oncologist, about the patient's presentation and x ray. He states to see if she is neutropenic. Recommends levofloxacin if not, vanc and cefipime if she is. I called lab and said ANC 1.9. 05/09/17 15:37 Patient is not neutropenic. Urinalysis as recorded. Patient has already been given Levaquin. Patient does agree to stay overnight. I have spoken to the patient's primary care provider, Dr. Hopper who states that he is happy to admit the patient to the telemetry floor. Noncontrasted CT scan performed secondary to left lower quadrant pain shows no obvious acute abnormalities. - Vital Signs Vital signs: Temp Pulse Resp BP Pulse Ox 98.1 F 83 20 108/72 99 05/09/17 10:43 05/09/17 10:43 05/09/17 10:43 05/09/17 10:43 05/09/17 10:43 - Laboratory Result Diagrams: 05/09/17 13:10 05/09/17 13:10 Laboratory results interpreted by me: 05/09/17 05/09/17 05/09/17 13:10 13:10 14:29 WBC 3.9 L RBC 3.12 L Hgb 10.9 L Hct 31.2 L MCV 100 H MCH 34.8 H RDW 17.6 H Monocytes % 17.7 H Potassium 3.5 L BUN 5 L Total Protein 6.1 L Urine Ketones 20 H Ur Leukocyte Esterase TRACE H Discharge - Discharge Clinical Impression: Bacterial pneumonia, Metastatic breast cancer UTI (urinary tract infection) Qualifiers: Urinary tract infection type: site unspecified Hematuria presence: without hematuria Qualified Code(s): N39.0 - Urinary tract infection, site not specified Condition: Fair Disposition: ADMITTED OBSERVATION Admitting Provider: Lidya Unit Admitted: Telemetry Referrals: ANDREA HOPPER MD [Primary Care Provider] - Follow up as needed
[2017-05-09] MEDS ORDERED: ONDANSETRON 4 MG TAB.RAPDIS PO ONE (13:15)
[2017-05-09 13:30] LABS: ABSOLUTE LYMPHOCYTES (AUTO) 1.2 10^3/uL (0.5-4.7); ABSOLUTE MONOCYTES (AUTO) 0.7 10^3/uL (0.1-1.4); ABSOLUTE NEUT (AUTO) 1.9 10^3/uL (1.7-8.2); BASOPHILS % (AUTO) 0.9 % (0-2); EOSINOPHILS % (AUTO) 0.5 % (0-6); HEMATOCRIT 31.2 % (36.0-47.0); HEMOGLOBIN 10.9 g/dL (12.0-15.5); HGB HCT DIFFERENCE 1.5; LYMPHOCYTES % (AUTO) 31.7 % (13-45); MEAN CORPUSCULAR HEMOGLOBIN 34.8 pg (27.0-33.4); MEAN CORPUSCULAR HGB CONC 34.8 g/dL (32.0-36.0); MEAN CORPUSCULAR VOLUME 100 fl (80-97); MONOCYTES % (AUTO) 17.7 % (3-13); RED BLOOD COUNT 3.12 10^6/uL (3.72-5.28); RED CELL DISTRIBUTION WIDTH 17.6 % (11.5-14.0); SEGMENTED NEUTROPHILS % (AUTO) 49.2 % (42-78); WHITE BLOOD COUNT 3.9 10^3/uL (4.0-10.5)
[2017-05-09 13:56] LABS: ALANINE AMINOTRANSFERASE 37 U/L (9-52); ALBUMIN 3.5 g/dL (3.5-5.0); ALKALINE PHOSPHATASE 73 U/L (38-126); ANION GAP 11 (5-19); ASPARTATE AMINO TRANSFERASE 28 U/L (14-36); BILIRUBIN,DIRECT 0.3 mg/dL (0.0-0.4); BILIRUBIN,TOTAL 0.4 mg/dL (0.2-1.3); BLOOD UREA NITROGEN 5 mg/dL (7-20); CALCIUM 8.6 mg/dL (8.4-10.2); CARBON DIOXIDE 28 mmol/L (22-30); CHLORIDE 101 mmol/L (98-107); GLUCOSE 76 mg/dL (75-110); LIPASE 31.2 U/L (23-300); POTASSIUM 3.5 mmol/L (3.6-5.0); SODIUM 140.2 mmol/L (137-145); TOTAL PROTEIN 6.1 g/dL (6.3-8.2)
--- NOTE | 2017-05-09 14:01 | RADIOLOGY REPORT (SQ) ---
EXAM DESCRIPTION: CT ABD/PELVIS NO ORAL OR IV COMPLETED DATE/TIME: 05/09/2017 1:22 pm REASON FOR STUDY: 13, llq pain/h/o cancer COMPARISON: Abdominal CT scan dated 04/12/2017 TECHNIQUE: CT scan of the abdomen and pelvis performed without intravenous or oral contrast. Images reviewed with lung, soft tissue, and bone windows. Reconstructed coronal and sagittal MPR images revi ewed. All images stored on PACS. All CT scanners at this facility use dose modulation, iterative reconstruction, and/or weight based d osing when appropriate to reduce radiation dose to as low as reasonably achievable (ALARA). [facility]: Dose Right [facility]: CareDose [facility]: Dose Right [facility]: Teradose 4D [facility]: Smart Hired RADIATION DOSE: mGy. LIMITATIONS: None. FINDINGS: LOWER CHEST: The previously described multiple peripheral, subpleural, and pleural nodules are again identified in the lung bases and appear essentially unchanged. Again the appearance is co nsistent with metastatic disease. NON-CONTRASTED LIVER, SPLEEN, ADRENALS: Evaluation limited by lack of IV contrast. No identified sign ificant masses. PANCREAS: No masses. No peripancreatic inflammatory changes. GALLBLADDER: Status post cholecystectomy RIGHT KIDNEY AND URETER: No suspicious masses. Assessment limited by lack of IV contrast. No signif icant calcifications. No hydronephrosis or hydroureter. LEFT KIDNEY AND URETER: No suspicious masses. Assessment limited by lack of IV contrast. Tiny nonob structing left renal calculus is again identified. No hydronephrosis or hydroureter. AORTA AND RETROPERITONEUM: No aneurysm. No retroperitoneal masses or adenopathy. BOWEL AND PERITONEAL CAVITY: No obvious masses or inflammatory changes. No free fluid. APPENDIX: Normal. PELVIS, BLADDER, AND ABDOMINAL WALL:No abnormal masses. No free fluid. Bladder normal. BONES: No significant findings. OTHER: No other significant finding. IMPRESSION: Stable appearing pulmonary metastatic disease as noted above. Tiny nonobstructing left renal calculus. No other significant intra-abdominopelvic abnormalities were identified. Other find ings as noted above COMMENT: Quality ID # [id number]: Final reports with documentation of one or more dose reduction techniques (e.g., Automated exposure control, adjustment of the mA and/or kV according to patient size, use of iterative reconstruction technique) TECHNICAL DOCUMENTATION: JOB ID: [id number]- All Rights Reserved
[2017-05-09] MEDS ORDERED: LEVOFLOXACIN 750 MG TABLET PO ONE (14:39)
[2017-05-09 14:41] LABS: APPEARANCE,URINE CLEAR; BILIRUBIN,URINE NEGATIVE (NEGATIVE); GLUCOSE, URINE NEGATIVE (NEGATIVE); KETONES,URINE 20 mg/dL (NEGATIVE); LEUKOCYTE ESTERASE,URINE TRACE (NEGATIVE); NITRITE,URINE NEGATIVE (NEGATIVE); PROTEIN,URINE NEGATIVE (NEGATIVE); URINE SPECIFIC GRAVITY 1.008; UROBILINOGEN,URINE NEGATIVE mg/dL (<2.0)
[2017-05-09] MEDS ORDERED: MORPHINE SULFATE 10 MG/ML INJ IV ONE (17:37)
[2017-05-09] MEDS: OXYCODONE HCL IR 5 MG TABLET PO PRN (20:42)
[2017-05-09] MEDS: OXYCODONE HCL SR 40 MG TABLET PO SCH (22:13)
[2017-05-10] MEDS: OXYCODONE HCL IR 5 MG TABLET PO PRN ×2 (02:20→20:39)
[2017-05-10] MEDS ORDERED: ACETAMINOPHEN 325 MG TABLET PO PRN (05:11)
[2017-05-10] MEDS ORDERED: ALBUTEROL SULFATE 0.083% NEB 2.5 MG/3 ML AMPUL NEB PRN (05:18)
--- NOTE | 2017-05-10 08:18 | PDOC H&P ---
History of Present Illness Admission Date/PCP: 05/09/17 16:31 ANDREA HOPPER MD Patient complains of: [id number] History of Present Illness: EFFIE LOUIS is a 36 year old female with 2d fever, nasal congestion, cough, sputum, vomiting, left abdominal pain, dysuria and breast cancer in brain lung and L abdomen on pet. 2m ago she was admitted with faint RML pneumonia that looked about the same, but she left in the morning. Her HCG was high and her chemo was switched to lupron recently. She finished brain radiation recently. Past Medical History Cardiac Medical History: Denies: Coronary Artery Disease, Myocardial Infarction, Hypertension Pulmonary Medical History: Reports: Asthma - TEENAGER, Pneumonia Denies: Bronchitis, Chronic Obstructive Pulmonary Disease (COPD), Tuberculosis EENT Medical History: Reports: None Neurological Medical History: Reports: Migraine, Seizures Endocrine Medical History: Reports: None Renal/ Medical History: Reports: None Malignancy Medical History: Reports: Breast Cancer - right, had mastectomy GI Medical History: Reports: Gastroesophageal Reflux Disease Musculoskeltal Medical History: Reports: Fibromyalgia Denies: Arthritis Psychiatric Medical History: Denies: Depression Traumatic Medical History: Reports: None Hematology: Denies: Anemia, Sickle Cell Disease Infectious Medical History: Reports: None Past Surgical History Past Surgical History: Reports: Amputation, Section - x2, Cholecystectomy, Mastectomy - Right right mastectomy with axillary node dissection, Orthopedic Surgery, Tonsillectomy, Tubal Ligation, Vascular Surgery - Left chest wall port Social History Information Source: Dr. Robbins Lives with: Family Smoking Status: Never Smoker Frequency of Alcohol Use: None Hx Recreational Drug Use: No Drugs: None Hx Prescription Drug Abuse: No - Advance Directive Resuscitation Status: Do Not Resuscitate Family History Family History: DM Parental Family History Reviewed: Yes Children Family History Reviewed: Yes Sibling(s) Family History Reviewed.: Yes Medication/Allergy Home Medications: Albuterol Sulfate [Albuterol Sulfate 2.5mg/3 mL] 1 vial IH Q4 PRN 05/09/17 Albuterol Sulfate [Proair Hfa Inhalation Aerosol 8.5 gm Mdi] 2 puff IH Q4 PRN Benzonatate [Tessalon Perles 100 mg Capsule] 200 mg PO Q8 05/09/17 Dexamethasone [Decadron 4 Mg Tablet] 4 mg PO TID 05/09/17 Docusate Sodium [Colace 100 mg Capsule] 100 mg PO BID 05/09/17 Levetiracetam [Keppra 500 mg Tablet] 500 mg PO Q12 05/09/17 Linaclotide [Linzess 145 Mcg Capsule] 145 mcg PO DAILY 05/09/17 Metoclopramide HCl [Reglan 10 mg Tablet] 10 mg PO Q6HP PRN 05/09/17 Omeprazole 40 mg PO DAILY 05/09/17 Ondansetron [Zofran Odt] 8 mg PO Q8HP PRN 05/09/17 Oxycodone HCl 20 mg PO Q4HP PRN 05/09/17 Oxycodone HCl [Oxycontin Sr 40 mg Tablet] 40 mg PO Q12 05/09/17 Prednisone [Deltasone 20 mg Tablet] 20 mg PO ASDIR PRN 05/09/17 Zolpidem Tartrate [Ambien] 10 mg PO HSP PRN 05/09/17 Allergies/Adverse Reactions: Adhesive Bandage * [Adhesive Bandage] Allergy (Mild, Verified 05/09/17 10:39) Generalized rash adhesive tape [Adhesive Tape] Allergy (Mild, Verified 05/09/17 10:39) Generalized rash Review of Systems Constitutional: PRESENT: fever(s), weight loss - 12# in 4m. ABSENT: headache(s) Eyes: PRESENT: visual disturbances Nose, Mouth, and Throat: PRESENT: sore throat. ABSENT: headache(s) Cardiovascular: PRESENT: chest pain. ABSENT: dyspnea on exertion, orthropnea Respiratory: PRESENT: cough, sputum Gastrointestinal: PRESENT: abdominal pain - actually points to L anterior iliac spine, vomiting Genitourinary: PRESENT: dysuria. ABSENT: hematuria Musculoskeletal: PRESENT: back pain Physical Exam Vital Signs: Temp Pulse Resp BP Pulse Ox 97.3 F 59 L 18 118/68 99 05/09/17 22:52 05/10/17 02:00 05/09/17 22:52 05/09/17 22:52 05/09/17 22:52 Intake & Output 05/08/17 05/09/17 05/10/17 07:59 07:59 07:59 Intake Total 243 Balance 243 Weight 192 lb 0.362 oz General appearance: PRESENT: no acute distress Mouth exam: PRESENT: moist, neck supple, tongue midline Neck exam: ABSENT: lymphadenopathy, tenderness, thyromegaly, tracheal deviation Respiratory exam: PRESENT: clear to auscultation jose, wheezes - mild Cardiovascular exam: ABSENT: diastolic murmur, irregular rhythm, systolic murmur GI/Abdominal exam: PRESENT: tenderness - mild RLQ tender L anterior iliac spine not LLQ. ABSENT: mass, organolmegaly Extremities exam: ABSENT: pedal edema Neurological exam: PRESENT: oriented to situation Psychiatric exam: PRESENT: anxious Results Laboratory Results: Abnormal - 24 hr 05/09/17 05/09/17 05/09/17 13:10 13:10 14:29 WBC 3.9 L RBC 3.12 L Hgb 10.9 L Hct 31.2 L MCV 100 H MCH 34.8 H RDW 17.6 H Monocytes % 17.7 H Potassium 3.5 L BUN 5 L Total Protein 6.1 L Urine Ketones 20 H Ur Leukocyte Esterase TRACE H Impressions: Acute Abdomen Series 05/09/17 00:00 IMPRESSION: Cannot exclude limited middle lobe infiltrate. No acute findings are seen in the abdomen. Abdomen/Pelvis CT 05/09/17 13:11 IMPRESSION: Stable appearing pulmonary metastatic disease as noted above. Tiny nonobstructing left renal calculus. No other significant intra- abdominopelvic abnormalities were identified. Other findings as noted above Assessment & Plan - Diagnosis (1) Bacterial pneumonia Is this a current diagnosis for this admission?: Yes Plan: levaquin since she is not neutropenic (2) Malignant neoplasm of upper-outer quadrant of right female breast Qualifiers: Estrogen receptor status: positive Qualified Code(s): C50.411 - Malignant neoplasm of upper-outer quadrant of right female breast; Z17.0 - Estrogen receptor positive status [ER+] Is this a current diagnosis for this admission?: Yes Plan: continue opioids lupron - Inpatient Certification Based on my medical assessment, after consideration of the patient's comorbidities, presenting symptoms, or acuity I expect that the services needed warrant INPATIENT care.: Yes I certify that my determination is in accordance with my understanding of Medicare's requirements for reasonable and necessary INPATIENT services [42 CFR 412.3e].: Yes Medical Necessity: Failure to Improve With Outpatient Therapy, Significant Comorbidiites Make Outpatient Treatment Too Risky, Need Close Monitoring Due to Risk of Patient Decompensation, Need for Nebulizer Therapy and Monitoring of Response, Need for Pain Control, Need for IV Antibiotics, Risk of Complication if Not Cared For in Hospital, Risk of Diagnosis Which Will Require Inpatient Eval/Care/Monitoring
[2017-05-10] MEDS: ONDANSETRON HCL INJ/PF 4 MG/2 ML SDV IV PRN ×2 (09:37→17:56)
[2017-05-10] MEDS: LEVOFLOXACIN 750 MG/D5W RTU 750 MG/150 ML RTUPB IV SCH (09:38)
[2017-05-10] MEDS: CEFTRIAXONE 1 GM/D5W RTU 1 GM/50 ML RTUPB IV SCH (09:39)
[2017-05-10] MEDS: ENOXAPARIN SODIUM INJ 40 MG/0.4 ML DISP.SYRIN SUBCUT SCH (09:40)
[2017-05-10] MEDS: FAMOTIDINE 20 MG TABLET PO SCH ×2 (09:42→23:09)
[2017-05-10] MEDS: DEXAMETHASONE 4 MG TABLET PO SCH ×3 (09:42→17:56)
[2017-05-10] MEDS: LUBIPROSTONE 24 MCG CAPSULE PO SCH ×2 (09:43→17:56)
[2017-05-10] MEDS: DOCUSATE SODIUM 100 MG CAPSULE PO SCH ×2 (09:43→17:56)
[2017-05-10] MEDS: LEVETIRACETAM 500 MG TABLET PO SCH ×2 (09:43→23:22)
[2017-05-10] MEDS: OXYCODONE HCL SR 40 MG TABLET PO SCH ×2 (09:43→23:09)
[2017-05-10] MEDS ORDERED: NORMAL SALINE 1000 ML 1,000 ML IV PRN (23:40)
[2017-05-10] MEDS ORDERED: PROMETHAZINE HCL 25 MG SUPP.RECT PR PRN (23:48)
[2017-05-11] MEDS ORDERED: NORMAL SALINE 1000 ML 1,000 ML IV PRN (05:14)
--- NOTE | 2017-05-11 07:53 | PDOC DISCHARGE SUMMARY ---
General - Admit/Disc Date/PCP Admission Date/Primary Care Provider: 05/09/17 16:31 ANDREA HOPPER MD Discharge Date: 05/11/17 - Discharge Diagnosis (1) Bacterial pneumonia Is this a current diagnosis for this admission?: Yes (2) Malignant neoplasm of upper-outer quadrant of right female breast Is this a current diagnosis for this admission?: Yes - Additional Information Resuscitation Status: Do Not Resuscitate Discharge Diet: As Tolerated Discharge Activity: Activity As Tolerated Home Medications: Albuterol Sulfate [Albuterol Sulfate 2.5mg/3 mL] 1 vial IH Q4 PRN 05/09/17 Albuterol Sulfate [Proair HFA Inhalation Aerosol 8.5 gm MDI] 2 puff IH Q4 PRN Benzonatate [Tessalon Perles 100 mg Capsule] 200 mg PO Q8 05/09/17 Dexamethasone [Decadron 4 mg Tablet] 4 mg PO TID 05/09/17 Docusate Sodium [Colace 100 mg Capsule] 100 mg PO BID 05/09/17 Linaclotide [Linzess 145 Mcg Capsule] 145 mcg PO DAILY 05/09/17 Metoclopramide HCl [Reglan 10 mg Tablet] 10 mg PO Q6HP PRN 05/09/17 Omeprazole 40 mg PO DAILY 05/09/17 Ondansetron [Zofran Odt] 8 mg PO Q8HP PRN 05/09/17 Oxycodone HCl 20 mg PO Q4HP PRN 05/09/17 Oxycodone HCl [Oxycontin Sr 40 mg Tablet] 40 mg PO Q12 05/09/17 Prednisone [Deltasone 20 mg Tablet] 20 mg PO ASDIR PRN 05/09/17 Zolpidem Tartrate [Ambien] 10 mg PO HSP PRN 05/09/17 Fluconazole [Diflucan] 150 mg PO ONCE PRN #1 tablet 05/11/17 Levofloxacin [Levaquin 750 mg Tablet] 750 mg PO DAILY #2 tablet 05/11/17 History of Present Illness Patient complains of: fever vomiting History of Present Illness: EFFIE LOUIS is a 36 year old female with 2d fever, nasal congestion, cough, sputum, vomiting, left abdominal pain, dysuria and breast cancer in brain lung and L abdomen on pet. 2m ago she was admitted with faint RML pneumonia that looked about the same, but she left in the morning. Her HCG was high and her chemo was switched to lupron recently. She finished brain radiation recently. Hospital Course Hospital Course: Asked to go home next morning. Vomited several times yesterday after keppra which Dr Ahn had stopped. XR said ?RML infiltrate but ct just said mets. Had 3d levaquin and 2d ceftri. Blood & urine cultures negative. Physical Exam Vital Signs: Temp Pulse Resp BP Pulse Ox 97.5 F 52 L 18 109/66 98 05/11/17 03:49 05/11/17 03:49 05/11/17 03:49 05/11/17 03:49 05/11/17 03:49 Intake & Output 05/09/17 05/10/17 05/11/17 07:59 07:59 07:59 Intake Total 243 1628 Output Total 200 Balance 243 1428 Weight 193 lb 1.999 oz 192 lb 3.889 oz General appearance: PRESENT: no acute distress Respiratory exam: PRESENT: clear to auscultation jose Cardiovascular exam: ABSENT: diastolic murmur, irregular rhythm, systolic murmur GI/Abdominal exam: ABSENT: mass, organolmegaly, tenderness Extremities exam: ABSENT: pedal edema Neurological exam: PRESENT: oriented to situation Psychiatric exam: PRESENT: appropriate affect Results Laboratory Results: Labs- Last Values WBC 3.9 10^3/uL (4.0-10.5) L 05/09/17 13:10 RBC 3.12 10^6/uL (3.72-5.28) L 05/09/17 13:10 Hgb 10.9 g/dL (12.0-15.5) L 05/09/17 13:10 Hct 31.2 % (36.0-47.0) L 05/09/17 13:10 MCV 100 fl (80-97) H 05/09/17 13:10 MCH 34.8 pg (27.0-33.4) H 05/09/17 13:10 MCHC 34.8 g/dL (32.0-36.0) 05/09/17 13:10 RDW 17.6 % (11.5-14.0) H 05/09/17 13:10 Plt Count 278 10^3/uL (150-450) 05/09/17 13:10 Seg Neutrophils % 49.2 % (42-78) 05/09/17 13:10 Lymphocytes % 31.7 % (13-45) 05/09/17 13:10 Monocytes % 17.7 % (3-13) H 05/09/17 13:10 Eosinophils % 0.5 % (0-6) 05/09/17 13:10 Basophils % 0.9 % (0-2) 05/09/17 13:10 Absolute Neutrophils 1.9 10^3/uL (1.7-8.2) 05/09/17 13:10 Absolute Lymphocytes 1.2 10^3/uL (0.5-4.7) 05/09/17 13:10 Absolute Monocytes 0.7 10^3/uL (0.1-1.4) 05/09/17 13:10 Absolute Eosinophils 0.0 10^3/uL (0.0-0.6) 05/09/17 13:10 Absolute Basophils 0.0 10^3/uL (0.0-0.2) 05/09/17 13:10 Sodium 140.2 mmol/L (137-145) 05/09/17 13:10 Potassium 3.5 mmol/L (3.6-5.0) L 05/09/17 13:10 Chloride 101 mmol/L (98-107) 05/09/17 13:10 Carbon Dioxide 28 mmol/L (22-30) 05/09/17 13:10 Anion Gap 11 (5-19) 05/09/17 13:10 BUN 5 mg/dL (7-20) L 05/09/17 13:10 Creatinine 0.80 mg/dL (0.52-1.25) 05/09/17 13:10 Est GFR ( Amer) > 60 (>60) 05/09/17 13:10 Est GFR (Non-Af Amer) > 60 (>60) 05/09/17 13:10 Glucose 76 mg/dL (75-110) 05/09/17 13:10 Calcium 8.6 mg/dL (8.4-10.2) 05/09/17 13:10 Total Bilirubin 0.4 mg/dL (0.2-1.3) 05/09/17 13:10 Direct Bilirubin 0.3 mg/dL (0.0-0.4) 05/09/17 13:10 Neonat Total Bilirubin Not Reportable 05/09/17 13:10 Neonat Direct Bilirubin Not Reportable 05/09/17 13:10 Neonat Indirect Bili Not Reportable 05/09/17 13:10 AST 28 U/L (14-36) 05/09/17 13:10 ALT 37 U/L (9-52) 05/09/17 13:10 Alkaline Phosphatase 73 U/L (38-126) 05/09/17 13:10 Total Protein 6.1 g/dL (6.3-8.2) L 05/09/17 13:10 Albumin 3.5 g/dL (3.5-5.0) 05/09/17 13:10 Lipase 31.2 U/L (23-300) 05/09/17 13:10 Urine Color YELLOW 05/09/17 14:29 Urine Appearance CLEAR 05/09/17 14:29 Urine pH 6.0 (5.0-9.0) 05/09/17 14:29 Ur Specific [place] 1.008 05/09/17 14:29 Urine Protein NEGATIVE mg/dL (NEGATIVE) 05/09/17 14:29 Urine Glucose (UA) NEGATIVE mg/dL (NEGATIVE) 05/09/17 14:29 Urine Ketones 20 mg/dL (NEGATIVE) H 05/09/17 14:29 Urine Blood NEGATIVE (NEGATIVE) 05/09/17 14:29 Urine Nitrite NEGATIVE (NEGATIVE) 05/09/17 14:29 Urine Bilirubin NEGATIVE (NEGATIVE) 05/09/17 14:29 Urine Urobilinogen NEGATIVE mg/dL (<2.0) 05/09/17 14:29 Ur Leukocyte Esterase TRACE (NEGATIVE) H 05/09/17 14:29 Urine WBC (Auto) 6 /HPF 05/09/17 14:29 Urine RBC (Auto) 2 /HPF 05/09/17 14:29 Squamous Epi Cells Auto 2 /HPF 05/09/17 14:29 Urine Mucus (Auto) RARE /LPF 05/09/17 14:29 Urine Ascorbic Acid NEGATIVE (NEGATIVE) 05/09/17 14:29 Urine HCG, Qual NEGATIVE (NEGATIVE) 05/09/17 14:29 Impressions: Acute Abdomen Series 05/09/17 00:00 IMPRESSION: Cannot exclude limited middle lobe infiltrate. No acute findings are seen in the abdomen. Abdomen/Pelvis CT 05/09/17 13:11 IMPRESSION: Stable appearing pulmonary metastatic disease as noted above. Tiny nonobstructing left renal calculus. No other significant intra- abdominopelvic abnormalities were identified. Other findings as noted above Qualifiers PATEINT BEING DISCHARGED WITH ANY OF THE FOLLOWING DIAGNOSIS?: No Plan Discharge Plan: home ov 5d
[2017-05-11] MEDS: CEFTRIAXONE 1 GM/D5W RTU 1 GM/50 ML RTUPB IV SCH (08:22)
[2017-05-11] MEDS: LEVETIRACETAM 500 MG TABLET PO SCH (08:27)
[2017-05-11] MEDS: ENOXAPARIN SODIUM INJ 40 MG/0.4 ML DISP.SYRIN SUBCUT SCH (09:33)
[2017-05-11] MEDS: OXYCODONE HCL SR 40 MG TABLET PO SCH (09:33)
[2017-05-11] MEDS: DOCUSATE SODIUM 100 MG CAPSULE PO SCH (09:34)
[2017-05-11] MEDS: LUBIPROSTONE 24 MCG CAPSULE PO SCH (09:34)
[2017-05-11] MEDS: LEVOFLOXACIN 750 MG/D5W RTU 750 MG/150 ML RTUPB IV SCH (09:34)
[2017-05-11] MEDS: DEXAMETHASONE 4 MG TABLET PO SCH (09:34)
[2017-05-11] MEDS: FAMOTIDINE 20 MG TABLET PO SCH (09:34)
[2017-05-11] MEDS ORDERED: POLYVINYL ALCOHOL 1.4% OPH SOLN 15 ML OU SCH (10:00)
[2017-05-11 16:31] VITALS: BP 115/76
== END 2017-05-11 13:15 | disposition home or self-care (01) ==
LOC: ER 10:32 → OBSVTOIN 16:31 → INTOOBSV 16:31 → EH 16:31 → 4S 19:49
PROVIDERS: ADMIT Family Medicine; ATTEND Family Medicine
DX: J15.9 Unspecified bacterial pneumonia (principal); C50.411 Malignant neoplasm of upper-outer quadrant of right female breast; Z17.0 Estrogen receptor positive status [ER+]; C78.00 Secondary malignant neoplasm of unspecified lung; C79.89 Secondary malignant neoplasm of other specified sites; C79.31 Secondary malignant neoplasm of brain; K21.9 Gastro-esophageal reflux disease without esophagitis; M54.9 Dorsalgia, unspecified; N39.0 Urinary tract infection, site not specified; H53.8 Other visual disturbances; R10.32 Left lower quadrant pain; Z79.899 Other long term (current) drug therapy; Z66 Do not resuscitate; Z92.3 Personal history of irradiation; Z90.11 Acquired absence of right breast and nipple; Z87.01 Personal history of pneumonia (recurrent); Z90.49 Acquired absence of other specified parts of digestive tract; Z98.51 Tubal ligation status
CPT/HCPCS: 36591; 99285; 96374; 36415; 87040; 87086; 83690; 85025; 81025; 80053; 81001; 74022; 74176; G0378 ×4; J3490 ×15; S0119; J2270; J1650 ×2; J2405; J7030; J0696 ×2; J1956 ×2

== ENCOUNTER 2017-05-20 07:43 | Day surgery (SDC) | payer MEDICAID ==
[~2017-05-20 07:43] MED LIST changes: -LIDOCAINE 1%/EPINEPHRINE INJ 20 ML VIAL ONE; +PROPOFOL INJ 200 MG/20 ML VIAL IV ONE; -RINGERS SOLUTION,LACTATED 1,000 ML IV PRN
[2017-05-20] MEDS ORDERED: FENTANYL CITRATE INJ/PF 50 MCG/1 ML 50 ML SDV IV ONE (09:25)
[2017-05-20 09:59] VITALS: BP 135/99
--- NOTE | 2017-05-20 13:54 | Operative Report ---
Operative Report DATE OF SURGERY: 05/20/17 Operative Report: The risks, benefits and alternatives of the procedure including risks of bleeding, perforation requiring surgery are explained to the patient in detail and informed consent was obtained. The endoscopy suite and placed in a left, lateral decubital position. Timeout was called. Propofol medications administered. A rectal examination is done which did not reveal any masses, tears or fissures. An Olympus videoscope was inserted into the patient's rectum. The scope was then carefully advanced all the way to the cecum. The cecum was identified by the usual anatomical landmarks including the ileocecal valve as well as the appendiceal office. Photodocumentation is obtained. The scope was then sequentially pulled back via the various segments of the colon including the ascending colon, hepatic flexure, transverse colon, splenic flexure, descending colon finding to the rectosigmoid portions of the colon. Retroflexion maneuvers performed. The risks benefits and alternatives of the procedure explained to the patient in detail and informed consent is obtained.A GIF Olympus video scope was inserted into the patient's mouth and hypopharynx, the esophagus is identified intubated and insufflated, the scope was then advanced through the esophagus stomach and duodenum, retroflexion maneuver is done, the esophagus stomach and first and second portions of the duodenum examined PREOPERATIVE DIAGNOSIS: Blood in stool. Nausea vomiting, regurgitation POSTOPERATIVE DIAGNOSIS: Right-sided colon inflammation status post biopsy. Internal hemorrhoids. Diverticulosis. Gastritis status post biopsy rule out Helicobacter pylori OPERATION: Colonoscopy with biopsy. EGD with biopsy SURGEON: PALAK JAIMES ANESTHESIA: LMAC TISSUE REMOVED OR ALTERED: As noted above. COMPLICATIONS: None. ESTIMATED BLOOD LOSS: None. INTRAOPERATIVE FINDINGS: As noted above. PROCEDURE: Patient tolerated procedure well. No immediate postprocedure complications are noted. Patient discharged in good condition. Discharge date 05/20/2017. Discharge diet: Regular. Discharge activity: Regular. 2-3 week follow-up to discuss findings. Patient is instructed call the office or proceed to the emergency room should there be any further problems or questions. We will wait on pathology.
== END 2017-05-20 10:05 | disposition home or self-care (01) ==
LOC: END 07:43
PROVIDERS: ATTEND Internal Medicine Gastroenterology
PROC: 0DB68ZX Excision of Stomach, Via Natural or Artificial Opening Endoscopic, Diagnostic (ICD-10-PCS; principal; 2017-05-20 09:00)
PROC: 0DBF8ZX Excision of Right Large Intestine, Via Natural or Artificial Opening Endoscopic, Diagnostic (ICD-10-PCS; 2017-05-20 09:00)
DX: K52.9 Noninfective gastroenteritis and colitis, unspecified (principal); K64.8 Other hemorrhoids; K92.1 Melena; K29.70 Gastritis, unspecified, without bleeding; K57.30 Diverticulosis of large intestine without perforation or abscess without bleeding; R13.10 Dysphagia, unspecified; Z85.3 Personal history of malignant neoplasm of breast
CPT/HCPCS: 43239; 45380; 88342 ×2; 88305 ×2; J3010; J2704; 810

== ENCOUNTER → 2017-07-03 | Outpatient (CLI) | payer MEDICAID ==
--- NOTE | 2017-07-03 11:06 | RADIOLOGY REPORT (SQ) ---
EXAM DESCRIPTION: MRI HEAD COMBO COMPLETED DATE/TIME: 07/03/2017 9:13 am REASON FOR STUDY: BREAST CA C50.511 MALIG NEOPLM OF LOWER-OUTER QUADRANT OF RIGHT FEMALE COMPARISON: None. TECHNIQUE: Multiplanar imaging includes noncontrasted T1, T2, FLAIR, diffusion with ADC map and post gadolinium contrast T1 sequences. Images stored on PACS. CONTRAST TYPE AND DOSE: 15 mL Multihance. RENAL FUNCTION: None required. The patient is less than 50 years old. LIMITATIONS: None. FINDINGS: ANATOMY: No anomalies. Normal vascular flow voids. Pituitary fossa normal. CSF SPACES: Normal in size and contour. No hemorrhage. CEREBRUM: Sulci and gyri normal in size and contour. Normal white matter signal on FLAIR imaging. No evidence of hemorrhage, mass, or extraaxial fluid collection. No abnormal enhancement post contrast. POSTERIOR FOSSA: No signal alteration. No hemorrhage. No edema, masses, or mass effect. Internal samantha tory canals, cerebellopontine angles, mastoids normal. No enhancing lesions. No abnormal enhancement post contrast. DIFFUSION IMAGING: Negative for acute or subacute infarction. ORBITS: No masses. Globes normal. PARANASAL SINUSES: No fluid levels. Mucosa normal. OTHER: No other significant finding. IMPRESSION: No evidence of metastatic disease. EVIDENCE OF ACUTE STROKE: NO. TECHNICAL DOCUMENTATION: JOB ID: [id number] [employer]- All Rights Reserved
== END ==
LOC: RAD 06-24 10:01
PROVIDERS: ATTEND Internal Medicine
DX: C50.511 Malignant neoplasm of lower-outer quadrant of right female breast (principal)
CPT/HCPCS: 70553; A9577

== ENCOUNTER 2017-08-22 15:01 | Emergency (ER) | payer MEDICAID ==
--- NOTE | 2017-08-22 15:46 | ER Document Report ---
ED Medical Screen (RME) - General Chief Complaint: Pain All Over Stated Complaint: VOMITING,HEADACHE,DIZZY Time Seen by Provider: 08/22/17 15:43 Mode of Arrival: Wheelchair Information source: Patient Notes: 37-year-old female history of metastatic breast cancer lungs stomach pain presents with complaints of not feeling well. Patient notes fever this morning 101.2 Patient is being treated at the [facility] I have greeted and performed a rapid initial assessment of this patient. A comprehensive ED assessment and evaluation of the patient, analysis of test results and completion of the medical decision making process will be conducted by additional ED providers. PHYSICAL EXAMINATION: GENERAL: Well-appearing, well-nourished and in no acute distress. HEAD: Atraumatic, normocephalic. EYES: Pupils equal round extraocular movements intact, conjunctiva are normal. ENT: Nares patent NECK: Normal range of motion LUNGS: No respiratory distress Musculoskeletal: Normal range of motion NEUROLOGICAL: Normal speech, normal gait. PSYCH: Tearful SKIN: Warm, Dry, normal turgor, no rashes or lesions noted. TRAVEL OUTSIDE OF THE [place] IN LAST 30 DAYS: No - Related Data Allergies/Adverse Reactions: Adhesive Bandage * [Adhesive Bandage] Allergy (Mild, Verified 05/20/17 07:59) Generalized rash adhesive tape [Adhesive Tape] Allergy (Mild, Verified 05/20/17 07:59) Generalized rash Past Medical History - Past Medical History Cardiac Medical History: Denies: Hx Coronary Artery Disease, Hx Heart Attack, Hx Hypertension Pulmonary Medical History: Reports: Hx Asthma - TEENAGER, Hx Pneumonia - recently d/c'd 05/10/17 Denies: Hx Bronchitis, Hx COPD, Hx Tuberculosis Neurological Medical History: Reports: Hx Migraine, Hx Seizures. Denies: Hx Cerebrovascular Accident Renal/ Medical History: Denies: Hx Peritoneal Dialysis Malignancy Medical History: Reports: Hx Brain Cancer, Hx Breast Cancer - right, had mastectomy, Hx Lung Cancer GI Medical History: Reports: Hx Gastroesophageal Reflux Disease. Denies: Hx Hiatal Hernia Musculoskeltal Medical History: Denies Hx Arthritis, Reports Hx Fibromyalgia Psychiatric Medical History: Denies: Hx Depression Infectious Medical History: Past Surgical History: Reports: Hx Section - x2, Hx Cholecystectomy, Hx Mastectomy - Right right mastectomy with axillary node dissection, Hx Orthopedic Surgery, Hx Tonsillectomy, Hx Tubal Ligation, Hx Vascular Surgery - Left chest wall port - Immunizations Hx Diphtheria, Pertussis, Tetanus Vaccination: Yes History of Influenza Vaccine for 03/2017 - 08/2017 Season: No Physical Exam - Vital signs Vitals: Temp Pulse BP Pulse Ox 98.7 F 67 132/113 H 95 08/22/17 15:17 08/22/17 15:17 08/22/17 15:17 08/22/17 15:17 Course - Vital Signs Vital signs: Temp Pulse Resp BP Pulse Ox 98.7 F 67 20 132/113 H 95 08/22/17 15:17 08/22/17 15:17 08/22/17 15:40 08/22/17 15:17 08/22/17 15:17 Doctor's Discharge - Discharge Referrals: ANDREA HOPPER MD [Primary Care Provider] - Follow up as needed
[2017-08-22] MEDS ORDERED: NORMAL SALINE 1000 ML 1,000 ML IV ONE (15:52)
[2017-08-22] MEDS ORDERED: CEFEPIME 1 GM/D5W RTU 1 GM/50 ML RTUPB IV ONE (15:52)
--- NOTE | 2017-08-22 16:30 | RADIOLOGY REPORT (SQ) ---
EXAM DESCRIPTION: CHEST PA/LAT COMPLETED DATE/TIME: 08/22/2017 4:20 pm REASON FOR STUDY: fever, cancer patient COMPARISON: Chest x-ray dated 04/22/[address] dated 04/12/2017. EXAM PARAMETERS: NUMBER OF VIEWS: two views TECHNIQUE: Digital Frontal and Lateral radiographic views of the chest acquired. RADIATION DOSE: NA LIMITATIONS: none FINDINGS: LUNGS AND PLEURA: On the frontal view there is asymmetric hazy appearance of the right low er lobe. This is highly artifact due to overlying prosthesis. On the lateral view there is no signi ficant basilar infiltrate. There is chronic elevation the right hemidiaphragm and mild blunting the right costophrenic angle. The left lung is clear. MEDIASTINUM AND HILAR STRUCTURES: No masses or contour abnormalities. HEART AND VASCULAR STRUCTURES: Heart normal size. No evidence for failure. BONES: No acute findings. HARDWARE: Vascular access port. OTHER: No other significant finding. IMPRESSION: CHRONIC ELEVATION OF THE RIGHT HEMIDIAPHRAGM WITH FAINT DENSITY IN THE RIGHT LOWER LOBE, PARTIALLY DUE TO ARTIFACT FROM OVERLYING BREAST IMPLANT. MILD PLEURAL SCARRING IN THE RIGHT COSTOPH RENIC ANGLE VERSUS SMALL EFFUSION. TECHNICAL DOCUMENTATION: JOB ID: [id number] [employer]- All Rights Reserved Reading location - IP/workstation name: [email or web address]
[2017-08-22] MEDS ORDERED: ONDANSETRON HCL INJ/PF 4 MG/2 ML SDV IV ONE (17:12)
[2017-08-22] MEDS ORDERED: MORPHINE SULFATE 10 MG/ML INJ IV ONE (17:12)
--- NOTE | 2017-08-22 17:13 | ER Document Report ---
ED General - General Mode of Arrival: Wheelchair TRAVEL OUTSIDE OF THE [place] IN LAST 30 DAYS: No <GERRY MATHEWS - Last Filed: 08/22/17 19:29> <DON TAN - Last Filed: 08/22/17 20:31> - General Chief Complaint: Pain All Over Stated Complaint: VOMITING,HEADACHE,DIZZY Time Seen by Provider: 08/22/17 15:43 Notes: Patient is a 37-year-old female who presents emergency department with a chief complaint of dizziness, cough, body aches, fever, nausea, vomiting and diarrhea that started yesterday. She admits to fever this morning with T-max of 101. States that she took Tylenol. States that she does have her home Percocet and Phenergan but she was still throwing up and in severe pain even after these medications. She states that her concern that brought her here was that she had noticed some blood on the toilet paper after diarrhea. Initally points to her lower abdomen for location of her abdominal pain. States that she has had her gallbladder out but still has her appendix. 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 States she is on Ibrance, Percocet, Colace, Phenergan and Tessalon Perles at home Follows with Dr. Bose, Dr. Ahn and with [facility] ( GERRY MATHEWS) - Related Data Allergies/Adverse Reactions: Adhesive Bandage * [Adhesive Bandage] Allergy (Mild, Verified 05/20/17 07:59) Generalized rash adhesive tape [Adhesive Tape] Allergy (Mild, Verified 05/20/17 07:59) Generalized rash Past Medical History - General Information source: Patient - Social History Smoking Status: Never Smoker Chew tobacco use (# tins/day): No Frequency of alcohol use: None Drug Abuse: None Family History: DM Patient has suicidal ideation: No Patient has homicidal ideation: No - Past Medical History Cardiac Medical History: Denies: Hx Coronary Artery Disease, Hx Heart Attack, Hx Hypertension Pulmonary Medical History: Reports: Hx Asthma - TEENAGER, Hx Pneumonia - recently d/c'd 05/10/17 Denies: Hx Bronchitis, Hx COPD, Hx Tuberculosis Neurological Medical History: Reports: Hx Migraine, Hx Seizures. Denies: Hx Cerebrovascular Accident Renal/ Medical History: Denies: Hx Peritoneal Dialysis Malignancy Medical History: Reports: Hx Brain Cancer, Hx Breast Cancer - right, had mastectomy, Hx Lung Cancer GI Medical History: Reports: Hx Gastroesophageal Reflux Disease. Denies: Hx Hiatal Hernia Musculoskeltal Medical History: Denies Hx Arthritis, Reports Hx Fibromyalgia Psychiatric Medical History: Denies: Hx Depression Infectious Medical History: Past Surgical History: Reports: Hx Section - x2, Hx Cholecystectomy, Hx Mastectomy - Right right mastectomy with axillary node dissection, Hx Orthopedic Surgery, Hx Tonsillectomy, Hx Tubal Ligation, Hx Vascular Surgery - Left chest wall port - Immunizations Hx Diphtheria, Pertussis, Tetanus Vaccination: Yes Hx Pneumococcal Vaccination: 04/30/13 <GERRY MATHEWS - Last Filed: 08/22/17 19:29> Review of Systems <GERRY MATHEWS - Last Filed: 08/22/17 19:29> <DON TAN - Last Filed: 08/22/17 20:31> - Review of Systems Notes: REVIEW OF SYSTEMS: CONSTITUTIONAL : admits to fever, chills, no sweats. Denies recent illness. EENT: Denies eye, ear, throat, or mouth pain or symptoms. Denies nasal or sinus congestion or discharge. Denies throat, tongue, or mouth swelling or difficulty swallowing. CARDIOVASCULAR: Denies chest pain. Denies palpitations or racing or irregular heart beat. Denies ankle edema. RESPIRATORY: admits to cough, denies cold, or chest congestion. Denies shortness of breath, difficulty breathing, or wheezing. GASTROINTESTINAL: admits to generalized abdominal pain w/o distention. admits to nausea, vomiting, and diarrhea. Denies blood in vomitus, stools, or per rectum. Denies black, tarry stools. Denies constipation. GENITOURINARY: Denies difficulty urinating, painful urination, burning, frequency, blood in urine, or discharge. FEMALE GENITOURINARY: Denies vaginal bleeding, heavy or abnormal periods, irregular periods. Denies vaginal discharge or odor. MUSCULOSKELETAL: Admits to muscl/body aches, without difficulty walking, extremity pain SKIN: Denies rash, lesions or sores. HEMATOLOGIC : Denies easy bruising or bleeding. LYMPHATIC: Denies swollen, enlarged glands. NEUROLOGICAL: Denies confusion or altered mental status. Denies passing out or loss of consciousness. Denies dizziness or lightheadedness. Denies headache. Denies weakness or paralysis or loss of use of either side. Denies problems with gait or speech. Denies sensory loss, numbness, or tingling. Denies seizures. PSYCHIATRIC: Denies anxiety or stress. Denies depression, suicidal ideation, or homicidal ideation. ALL OTHER SYSTEMS REVIEWED AND NEGATIVE. Dictation was performed using [employer] voice recognition software (GERRY MATHEWS ) Physical Exam <GERRY MATHEWS - Last Filed: 08/22/17 19:29> <DON TAN - Last Filed: 08/22/17 20:31> - Vital signs Vitals: Temp Pulse BP Pulse Ox 98.7 F 67 132/113 H 95 08/22/17 15:17 08/22/17 15:17 08/22/17 15:17 08/22/17 15:17 - Notes Notes: PHYSICAL EXAM GENERAL: Alert, interacts well. HEAD: Normocephalic, atraumatic. EYES: Pupils equal, round, and reactive to light. Extraocular movements intact. ENT: Oral mucosa moist, tongue midline. NECK: Full range of motion. Supple. Trachea midline. LUNGS: Clear to auscultation bilaterally, no wheezes, rales, or rhonchi. No respiratory distress. HEART: port left chest regular rate and rhythm. No murmurs, gallops, or rubs. ABDOMEN: Soft, nondistended, nontender. No guarding, rebound, or rigidity.. Bowel sounds present in all 4 quadrants. EXTREMITIES: Moves all 4 extremities spontaneously. No edema, radial and dorsalis pedis pulses 2/4 bilaterally. No cyanosis. NEUROLOGICAL: Alert and oriented x4. Normal speech. PSYCH: Normal affect, normal mood. SKIN: Warm, dry, normal turgor. No rashes or lesions noted. (GERRY MATHEWS) Course - Laboratory Result Diagrams: 08/22/17 16:40 08/22/17 16:40 - Diagnostic Test Radiology reviewed: Image reviewed, Reports reviewed <GERRY MATHEWS - Last Filed: 08/22/17 19:29> - Laboratory Result Diagrams: 08/22/17 16:40 08/22/17 16:40 <DON TAN - Last Filed: 08/22/17 20:31> - Re-evaluation Re-evalutation: 08/22/17 19:18 Patient is a 37-year-old female is hemodynamically stable, no acute distress and afebrile. CBC stable with patient's baseline without any evidence of leukocytosis or anemia. Chemistry stable without any evidence of electrolyte abnormalities, acute renal failure. Lactic normal at 0.7. Magnesium stable. Urinalysis without evidence of UTI. Chest x-ray shows increase in lucency of the right lower lobe infiltrate that is present on previous imaging. Upon reexamination, patient states that she has return of her pain after previous medication. I reexamined her multiple times without any significant focal abdominal tenderness. She states now that she has nausea and epigastric discomfort and pain. She denies any episodes of nausea or diarrhea since the emergency department. Stool occult was done due to one episode of dark stool that was followed by loose yellow diarrhea. At this time no significant concerns for sepsis given past medical history, fever and x-ray findings may require treatment for pneumonia. I sent over care tonight LILLIANA Tan who will follow lipase in GI cocktail due to her complaint of epigastric discomfort and will touch base with oncology prior to discharge. 08/22/17 19:29 Patient's labs were returned prior to my leaving. Lipase was normal. Reviewed case with Dr Ahn who agrees with assessment to be treated for pneumonia and can follow-up in their office with him tomorrow. Patient to be medicated and will be reassessed in the department with IV and prior to discharge (GERRY MATHEWS) 08/22/17 20:20 Patient re-evaluated. Patient states she does feel better, states she is comfortable and ready to go home. She does request him to go home with, she will be given an IM dose of medication. Vital signs are unremarkable this time with no tachycardia, hypoxia, hypotension, or fever. Return precautions were discussed with patient, patient states understanding and agreement. (DON TAN) - Vital Signs Vital signs: Temp Pulse Resp BP Pulse Ox 97.9 F 55 L 33 H 130/113 H 100 08/22/17 18:44 08/22/17 19:00 08/22/17 19:03 08/22/17 19:03 08/22/17 19:03 - Laboratory Laboratory results interpreted by me: 08/22/17 08/22/17 08/22/17 16:40 16:40 18:05 WBC 3.2 L RBC 3.22 L Hgb 11.3 L Hct 32.7 L MCV 102 H MCH 35.2 H RDW 17.4 H Monocytes % 13.7 H Chloride 109 H BUN 5 L Urine Ketones 20 H Urine Urobilinogen 2.0 H Discharge <GERRY MATHEWS - Last Filed: 08/22/17 19:29> <DON TAN - Last Filed: 08/22/17 20:31> - Discharge Clinical Impression: Metastatic breast cancer Pneumonia Qualifiers: Pneumonia type: due to unspecified organism Laterality: right Lung location: lower lobe of lung Qualified Code(s): J18.1 - Lobar pneumonia, unspecified organism Condition: Stable Disposition: HOME, SELF-CARE Additional Instructions: PNEUMONIA: Your examination indicates that you have pneumonia. This is an infection of the lung tissue, usually caused by bacteria or a virus. Symptoms include cough, fever, shaking chills, chest pain, shortness of breath, and coughing up bloody sputum. Treatment for bacterial pneumonia includes rest, antibiotics for 10 to 14 days, increasing your clear liquid intake, a cool mist humidifier at your bedside, and fever medication. Often, a repeat chest X-ray is performed in a few weeks--even if you feel better--to ascertain whether the infection has completely resolved and no underlying lung problem is present. You should call the physician if you develop persistent vomiting, high fever that does not respond to fever medication, increasing shortness of breath , confusion, or lethargy. Also, failure to improve within two to three days is an indication for re-examination. ANTIBIOTIC INJECTION: You have been given an antibiotic injection. Sometimes the injection must be combined with antibiotic pills. For some infections, the shot provides all the antibiotic that's needed. Common side effects of antibiotics include nausea, intestinal cramping, or diarrhea. These are very unusual following a shot. Women may develop vaginal yeast infections, and babies can get yeast ( thrush) in the mouth following the use of antibiotics. Contact your physician if you develop significant side effects from this medication. Allergy to this antibiotic can result in hives, wheezing, faintness, or itching. If symptoms of allergy occur, call the doctor at once. ROCEPHIN: You have been given an injection of an antibiotic called Rocephin ( ceftriaxone). Sometimes the injection must be combined with antibiotic pills. For some infections, such as an uncomplicated ear infection, Rocephin provides all the antibiotic that's needed. The antibiotic will be in your body for about two days. For serious infections, we usually repeat doses of Rocephin daily. Side effects are very unusual following a shot. Women may develop vaginal yeast infections, and babies can get yeast (thrush) in the mouth following the use of antibiotics. Contact your physician if you have symptoms with this medication. Allergy to this antibiotic can result in hives, wheezing, faintness, or itching. If symptoms of allergy occur, call the doctor at once. ANTIBIOTIC THERAPY: You have been given an antibiotic prescription. It's important that you take all the medication, unless instructed otherwise by your physician. Failure to complete the entire course can result in relapse of your condition. Common side effects of antibiotics include nausea, intestinal cramping, or diarrhea. Women may develop vaginal yeast infections, and babies can get yeast (thrush) in the mouth following the use of antibiotics. Contact your physician if you develop significant side effects from this medication. Allergy to this antibiotic can result in hives, wheezing, faintness, or itching. If symptoms of allergy occur, stop the medication and call the doctor. LEVOFLOXACIN: You have been given an antibacterial agent, levofloxacin (Levaquin). This medicine is not related to the penicillins, sulfas, cephalosporins, or tetracyclines. It is often given to patients who are allergic to these drugs. It has been chosen for you either because other drugs are not appropriate, or because of the nature of your problem. Levaquin should not be taken with antacids, as these can decrease its effectiveness. It can be taken without regard to meals. LEVAQUIN SHOULD NOT BE TAKEN BY CHILDREN, NURSING WOMEN, OR WOMEN. Although Levaquin is usually well-tolerated, common side effects can include nausea and diarrhea. Contact your doctor if you experience any unusual symptoms while on this medication, such as joint pain or swelling, shortness of breath, wheezing, faintness, or hives. USE OF ACETAMINOPHEN (Tylenol): Acetaminophen may be taken for pain relief or fever control. It's much safer than aspirin, offering a wider range of "safe" dosages. It is safe during . Some brand names are Tylenol, Panadol, Datril, Anacin 3, Tempra, and Liquiprin. Acetaminophen can be repeated every four hours. The following are maximum recommended dosages: WEIGHT Dose Drops Elixir Chewable( 80mg) (LBS.) drprs=droppers tsp=teaspoon 6 40 mg 0.4 ml (1/2) 6-11 80 mg 0.8 ml (full) tsp 1 tab 12-16 120 mg 1 1/2 drprs 3/4 tsp 1 1/2 tabs 17-23 160 mg 2 drprs 1 tsp 2 tabs 24-30 240 mg 3 drprs 1 1/2 tsp 3 tabs 30-35 320 mg 2 tsp 4 tabs 36-41 360 mg 2 1/4 tsp 4 1/2 tabs 42-47 400 mg 2 1/2 tsp 5 tabs 48-53 480 mg 3 tsp 6 tabs 54-59 520 mg 3 1/4 tsp 6 1/2 tabs 60-64 560 mg 3 1/2 tsp 7 tabs 65-70 600 mg 3 3/4 tsp 7 1/2 tabs 71-76 640 mg 4 tsp 8 tabs 77-82 720 mg 4 1/2 tsp 9 tabs 83-88 800 mg 5 tsp 10 tabs >89 pounds or adults 650 mg to 900 mg Acetaminophen can be repeated every four hours. Maximum dose not to exceed 4000 mg a day. These maximum recommended dosages are slightly higher than the dosages written on the product container, but these dosages are very safe and below the toxic dosage for acetaminophen. FOLLOW-UP CARE: If you have been referred to a physician for follow-up care, call the physician s office for an appointment as you were instructed or within the next two days. If you experience worsening or a significant change in your symptoms, notify the physician immediately or return to the Emergency Department at any time for re-evaluation. Prescriptions: Levofloxacin 750 mg PO DAILY #5 tablet Referrals: ANDREA BOSE MD [Primary Care Provider] - Follow up as needed MARTINEZ AHN MD [ACTIVE STAFF] - Follow up tomorrow
[2017-08-22 17:18] LABS: ABSOLUTE LYMPHOCYTES (AUTO) 0.9 10^3/uL (0.5-4.7); ABSOLUTE MONOCYTES (AUTO) 0.4 10^3/uL (0.1-1.4); ABSOLUTE NEUT (AUTO) 1.7 10^3/uL (1.7-8.2); HEMATOCRIT 32.7 % (36.0-47.0); TOTAL CELLS COUNTED % (AUTO) 100 %
[2017-08-22 17:26] LABS: BASOPHILS % (AUTO) 1.4 % (0-2); EOSINOPHILS % (AUTO) 1.2 % (0-6); HEMOGLOBIN 11.3 g/dL (12.0-15.5); LYMPHOCYTES % (AUTO) 29.2 % (13-45); MEAN CORPUSCULAR HEMOGLOBIN 35.2 pg (27.0-33.4); MEAN CORPUSCULAR HGB CONC 34.7 g/dL (32.0-36.0); MEAN CORPUSCULAR VOLUME 102 fl (80-97); MONOCYTES % (AUTO) 13.7 % (3-13); PLATELET COUNT 195 10^3/uL (150-450); RED BLOOD COUNT 3.22 10^6/uL (3.72-5.28); RED CELL DISTRIBUTION WIDTH 17.4 % (11.5-14.0); SEGMENTED NEUTROPHILS % (AUTO) 54.5 % (42-78); WHITE BLOOD COUNT 3.2 10^3/uL (4.0-10.5)
[2017-08-22 17:42] LABS: ALANINE AMINOTRANSFERASE 27 U/L (9-52); ALKALINE PHOSPHATASE 57 U/L (38-126); BILIRUBIN,DIRECT 0.3 mg/dL (0.0-0.4); BILIRUBIN,TOTAL 0.5 mg/dL (0.2-1.3)
[2017-08-22 18:00] LABS: ALBUMIN 3.6 g/dL (3.5-5.0); ANION GAP 9 (5-19); ASPARTATE AMINO TRANSFERASE 14 U/L (14-36); BLOOD UREA NITROGEN 5 mg/dL (7-20); CALCIUM 9.4 mg/dL (8.4-10.2); CARBON DIOXIDE 26 mmol/L (22-30); CHLORIDE 109 mmol/L (98-107); GLUCOSE 76 mg/dL (75-110); POTASSIUM 3.6 mmol/L (3.6-5.0); SODIUM 144.3 mmol/L (137-145); TOTAL PROTEIN 6.5 g/dL (6.3-8.2)
[2017-08-22 18:33] LABS: APPEARANCE,URINE SLIGHTLY-CLOUDY; BILIRUBIN,URINE NEGATIVE (NEGATIVE); COLOR,URINE YELLOW; GLUCOSE, URINE NEGATIVE (NEGATIVE); KETONES,URINE 20 mg/dL (NEGATIVE); LEUKOCYTE ESTERASE,URINE NEGATIVE (NEGATIVE); NITRITE,URINE NEGATIVE (NEGATIVE); PROTEIN,URINE NEGATIVE (NEGATIVE); URINE SPECIFIC GRAVITY 1.027
[2017-08-22] MEDS ORDERED: METOCLOPRAMIDE HCL ORAL SOLN 10 MG/10 ML UDCUP PO ONE (18:53)
[2017-08-22] MEDS ORDERED: MAG HYDROX/AL HYDROX/SIMETH SUSP 30 ML UDCUP PO ONE (18:53)
[2017-08-22] MEDS ORDERED: LIDOCAINE 2% VISCOUS SOLN 20 ML UDCUP PO ONE (18:53)
[2017-08-22 19:11] VITALS: BP 130/113
[2017-08-22] MEDS ORDERED: HYDROMORPHONE HCL INJ/PF 2 MG/ML AMPULE IV ONE (19:15)
[2017-08-22] MEDS ORDERED: HYDROMORPHONE HCL INJ/PF 2 MG/ML AMPULE IM ONE (20:27)
== END 2017-08-22 21:15 | disposition home or self-care (01) ==
LOC: ER 15:01
DX: J18.1 Lobar pneumonia, unspecified organism (principal); C50.919 Malignant neoplasm of unspecified site of unspecified female breast; C79.31 Secondary malignant neoplasm of brain; C78.00 Secondary malignant neoplasm of unspecified lung; C78.89 Secondary malignant neoplasm of other digestive organs; Z79.899 Other long term (current) drug therapy; R42 Dizziness and giddiness; R05 Cough; R50.9 Fever, unspecified; R11.2 Nausea with vomiting, unspecified; R10.13 Epigastric pain; R19.7 Diarrhea, unspecified; R10.30 Lower abdominal pain, unspecified; Z79.891 Long term (current) use of opiate analgesic; Z90.49 Acquired absence of other specified parts of digestive tract; Z91.048 Other nonmedicinal substance allergy status
CPT/HCPCS: 99284; 96372; 96375; 96365; 86900; 86901; 36415; 87040; 87086; 86850; 83690; 83735; 85025; 82272; 80053; 81001; 83605; 71046; J3490 ×3; J2270; J1170; J2405; J7030; J0692

== ENCOUNTER 2017-08-23 14:25 | Outpatient (CLI) | payer MEDICAID ==
[2017-08-23] MEDS ORDERED: NORMAL SALINE 1000 ML 1,000 ML IV PRN (15:01)
[2017-08-23] MEDS ORDERED: ONDANSETRON HCL INJ/PF 4 MG/2 ML SDV IV ONE (15:30)
[2017-08-23 16:03] VITALS: BP 102/87
== END 2017-08-23 16:03 | disposition home or self-care (01) ==
LOC: II 14:25
PROVIDERS: ATTEND Internal Medicine
PROC: 3E043GC Introduction of Other Therapeutic Substance into Central Vein, Percutaneous Approach (ICD-10-PCS; principal; 2017-08-23)
PROC: 3E0437Z Introduction of Electrolytic and Water Balance Substance into Central Vein, Percutaneous Approach (ICD-10-PCS; 2017-08-23)
DX: E86.0 Dehydration (principal); C50.511 Malignant neoplasm of lower-outer quadrant of right female breast
CPT/HCPCS: 96374; 96375; 96360; J2405; 96361

== ENCOUNTER 2017-09-16 22:21 | Inpatient (IN) | payer MEDICAID ==
[2017-09-16] MEDS ORDERED: NORMAL SALINE 1000 ML 1,000 ML IV ONE (22:43)
--- NOTE | 2017-09-16 22:44 | ER Document Report ---
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 Presents with 5 days of shortness of breath, cough and fever got worse on her drive home from [place] the past week. She admits to pleuritic chest pain worse with exhalation. 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 States she is on Ibrance, Percocet, Colace, Phenergan and Tessalon Perles at home TRAVEL OUTSIDE OF THE [place] IN LAST 30 DAYS: No - Related Data Allergies/Adverse Reactions: Adhesive Bandage * [Adhesive Bandage] Allergy (Mild, Verified 05/20/17 07:59) Generalized rash adhesive tape [Adhesive Tape] Allergy (Mild, Verified 05/20/17 07:59) Generalized rash Past Medical History - Past Medical History Cardiac Medical History: Denies: Hx Coronary Artery Disease, Hx Heart Attack, Hx Hypertension Pulmonary Medical History: Reports: Hx Asthma - TEENAGER, Hx Pneumonia - recently d/c'd 05/10/17 Denies: Hx Bronchitis, Hx COPD, Hx Tuberculosis Neurological Medical History: Reports: Hx Migraine, Hx Seizures. Denies: Hx Cerebrovascular Accident Renal/ Medical History: Denies: Hx Peritoneal Dialysis Malignancy Medical History: Reports: Hx Brain Cancer, Hx Breast Cancer - right, had mastectomy, Hx Lung Cancer GI Medical History: Reports: Hx Gastroesophageal Reflux Disease. Denies: Hx Hiatal Hernia Musculoskeltal Medical History: Denies Hx Arthritis, Reports Hx Fibromyalgia Psychiatric Medical History: Denies: Hx Depression Infectious Medical History: Past Surgical History: Reports: Hx Section - x2, Hx Cholecystectomy, Hx Mastectomy - Right right mastectomy with axillary node dissection, Hx Orthopedic Surgery, Hx Tonsillectomy, Hx Tubal Ligation, Hx Vascular Surgery - Left chest wall port - Immunizations Hx Diphtheria, Pertussis, Tetanus Vaccination: Yes History of Influenza Vaccine for 03/2017 - 08/2017 Season: No Physical Exam - Notes Notes: PHYSICAL EXAM GENERAL: Alert, interacts well. HEAD: Normocephalic, atraumatic. EYES: Pupils equal, round, and reactive to light. Extraocular movements intact. ENT: Oral mucosa moist, tongue midline. NECK: Full range of motion. Supple. Trachea midline. LUNGS: Clear to auscultation bilaterally, no wheezes, rales, or rhonchi. No respiratory distress. HEART: Regular rate and rhythm. No murmurs, gallops, or rubs. NEUROLOGICAL: Alert and oriented x4. Normal speech.
--- NOTE | 2017-09-16 23:12 | ER Document Report ---
ED General - General Chief Complaint: Breathing Difficulty Stated Complaint: FEVER,BODY PAIN,DIFFICULTY BREATHING Time Seen by Provider: 09/16/17 22:39 Notes: Patient is a 37-year-old female with a history of stage IV breast cancer who presents with complaint of fever and pleuritic type chest pain. She still hurts to take a deep breath. Fever started last 2 days. T-max at home was 101.1. She is followed locally by Dr. Moralez. She has had some vomiting. She feels dehydrated. She also feels as if her right breast is swollen. She had mastectomy on the right side in 2011 and had breast reconstruction 2013. No redness or warmth or abnormal drainage from the surgical site. No other complaints at this time. She denies any leg pain or leg swelling. She is not on IV chemotherapy. She does have a port in her left upper chest. She does take oral chemotherapy in the form of Ibrance. TRAVEL OUTSIDE OF THE [place] IN LAST 30 DAYS: No - Related Data Allergies/Adverse Reactions: Adhesive Bandage * [Adhesive Bandage] Allergy (Mild, Verified 09/17/17 01:25) Generalized rash adhesive tape [Adhesive Tape] Allergy (Mild, Verified 09/17/17 01:25) Generalized rash Past Medical History - Social History Smoking Status: Never Smoker Chew tobacco use (# tins/day): No Frequency of alcohol use: Rare Drug Abuse: None Family History: DM Patient has suicidal ideation: No Patient has homicidal ideation: No - Past Medical History Cardiac Medical History: Denies: Hx Coronary Artery Disease, Hx Heart Attack, Hx Hypertension Pulmonary Medical History: Reports: Hx Asthma - TEENAGER, Hx Pneumonia - recently d/c'd 05/10/17 Denies: Hx Bronchitis, Hx COPD, Hx Tuberculosis Neurological Medical History: Reports: Hx Migraine, Hx Seizures. Denies: Hx Cerebrovascular Accident Renal/ Medical History: Denies: Hx Peritoneal Dialysis Malignancy Medical History: Reports: Hx Brain Cancer, Hx Breast Cancer - right, had mastectomy, Hx Lung Cancer GI Medical History: Reports: Hx Gastroesophageal Reflux Disease. Denies: Hx Hiatal Hernia Musculoskeltal Medical History: Denies Hx Arthritis, Reports Hx Fibromyalgia Psychiatric Medical History: Denies: Hx Depression Infectious Medical History: Past Surgical History: Reports: Hx Section - x2, Hx Cholecystectomy, Hx Mastectomy - Right right mastectomy with axillary node dissection, Hx Orthopedic Surgery, Hx Tonsillectomy, Hx Tubal Ligation, Hx Vascular Surgery - Left chest wall port - Immunizations Hx Diphtheria, Pertussis, Tetanus Vaccination: Yes Hx Pneumococcal Vaccination: 04/30/13 Review of Systems - Review of Systems Notes: My Normal Review Basic REVIEW OF SYSTEMS: CONSTITUTIONAL : Fever EENT: Denies eye, ear, throat, or mouth pain or symptoms. Denies nasal or sinus congestion. CARDIOVASCULAR: Pleuritic chest pain RESPIRATORY: Cough with yellow production GASTROINTESTINAL: Denies abdominal pain. Denies nausea, vomiting, or diarrhea. GENITOURINARY: Denies difficulty urinating, painful urination, burning, frequency, or blood in urine.: MUSCULOSKELETAL: Denies neck or back pain or joint pain or swelling. SKIN: Denies rash or skin lesions. LYMPHATIC: Has stage IV breast cancer. NEUROLOGICAL: Denies altered mental status or loss of consciousness. Denies headache. Denies weakness or paralysis or loss of use of either side. Denies problems with gait or speech. Denies sensory or motor loss. ALL OTHER SYSTEMS REVIEWED AND NEGATIVE. Physical Exam - Vital signs Vitals: Resp 14 09/16/17 23:13 - Notes Notes: General Appearance: Well nourished, alert, cooperative, no acute distress, moderate obvious discomfort. Vitals: reviewed, See vital signs table. Head: no swelling or tenderness to the head Eyes: PERRL, EOMI, Conjuctiva clear Mouth: No decreasd moisture Neck: Supple, no neck tenderness Lungs: No wheezing, No rales, No rhonci, No accessory muscle use, good air exchange bilaterally. Heart: Normal rate, Regular rythm, No murmur, no rub Chest wall: Patient has breast reconstruction on the right side. Surgical wound appears to be intact without any redness or abnormal warmth. Area is tender to palpation. Abdomen: Normal BS, soft, No rigidity, No abdominal tenderness, No guarding, no rebound, no abdominal masses, no organomegaly Extremities: strength 5/5 in all extremities, good pulses in all extremities, no swelling or tenderness in the extremities, no edema. Skin: warm, dry, appropriate color, no rash Neuro: speech clear, oriented x 3, normal affect, responds appropriately to questions. Course - Re-evaluation Re-evalutation: 09/17/17 03:[address] J room the patient's findings on CT scan. He was patient needs admission. He requested to be admitted to Dr. Hopper for antibiotic treatment as well as possibly have arrangement for thoracentesis to assess fluid. I did speak with Dr. Hopper is agreeable to this plan. I did reevaluate the patient. Her story status remains normal. Her pain continues to be in and behind the right breast. She still feels as if the right breast is more swollen. I did reexamine the right breast and I do not appreciate any abnormal warmth or redness or signs that is infected. Suspect that she is having sensation due to the large effusion and pleuritic pain that is occurring right behind that right breast. I have started her on antibiotics. Patient will be admitted for further workup and treatment. Dictation of this chart was performed using voice recognition software; therefore, there may be some unintended grammatical errors. - Vital Signs Vital signs: Temp Pulse Resp BP Pulse Ox 97.9 F 21 H 110/86 H 94 09/16/17 23:43 09/17/17 03:00 09/17/17 03:01 09/17/17 03:00 - Laboratory Result Diagrams: 09/16/17 23:35 09/16/17 23:35 Laboratory results interpreted by me: 09/16/17 09/16/17 09/16/17 23:35 23:35 23:35 RBC 3.36 L Hgb 11.7 L Hct 34.4 L MCV 103 H MCH 34.7 H RDW 16.9 H Monocytes % 14.3 H Carbon Dioxide 31 H BUN 5 L Lactic Acid 0.5 L Discharge - Discharge Clinical Impression: Pleural effusion Fever Qualifiers: Fever type: unspecified Qualified Code(s): R50.9 - Fever, unspecified Pneumonia Qualifiers: Pneumonia type: due to unspecified organism Laterality: right Lung location: unspecified part of lung Qualified Code(s): J18.9 - Pneumonia, unspecified organism Condition: Stable Disposition: ADMITTED OBSERVATION Admitting Provider: Lidya Unit Admitted: Telemetry Referrals: ANDREA HOPPER MD [Primary Care Provider] - Follow up as needed
[2017-09-16] MEDS ORDERED: MORPHINE SULFATE 10 MG/ML INJ IV ONE (23:13)
[2017-09-16 23:52] LABS: ABSOLUTE BASOPHILS # (AUTO) 0.1 10^3/uL (0.0-0.2); ABSOLUTE EOSINOPHILS # (AUTO) 0.1 10^3/uL (0.0-0.6); ABSOLUTE LYMPHOCYTES (AUTO) 1.3 10^3/uL (0.5-4.7); ABSOLUTE MONOCYTES (AUTO) 1.2 10^3/uL (0.1-1.4); ABSOLUTE NEUT (AUTO) 5.7 10^3/uL (1.7-8.2); BASOPHILS % (AUTO) 1.2 % (0-2); EOSINOPHILS % (AUTO) 1.6 % (0-6); HEMATOCRIT 34.4 % (36.0-47.0); HEMOGLOBIN 11.7 g/dL (12.0-15.5); LYMPHOCYTES % (AUTO) 14.9 % (13-45); MEAN CORPUSCULAR HEMOGLOBIN 34.7 pg (27.0-33.4); MEAN CORPUSCULAR HGB CONC 33.8 g/dL (32.0-36.0); MEAN CORPUSCULAR VOLUME 103 fl (80-97); MONOCYTES % (AUTO) 14.3 % (3-13); PLATELET COUNT 342 10^3/uL (150-450); RED BLOOD COUNT 3.36 10^6/uL (3.72-5.28); RED CELL DISTRIBUTION WIDTH 16.9 % (11.5-14.0); TOTAL CELLS COUNTED % (AUTO) 100 %; WHITE BLOOD COUNT 8.4 10^3/uL (4.0-10.5)
[2017-09-16 23:55] LABS: VENOUS BLOOD BASE EXCESS 3.7 mmol/L; VENOUS BLOOD PCO2 52.4 mmHg (35-63); VENOUS BLOOD PH 7.38 (7.30-7.42)
[2017-09-17 00:07] LABS: ALANINE AMINOTRANSFERASE 32 U/L (9-52); ALBUMIN 3.8 g/dL (3.5-5.0); ALKALINE PHOSPHATASE 74 U/L (38-126); ANION GAP 7 (5-19); ASPARTATE AMINO TRANSFERASE 29 U/L (14-36); BILIRUBIN,DIRECT 0.1 mg/dL (0.0-0.4); BILIRUBIN,TOTAL 0.5 mg/dL (0.2-1.3); BLOOD UREA NITROGEN 5 mg/dL (7-20); CALCIUM 9.6 mg/dL (8.4-10.2); CARBON DIOXIDE 31 mmol/L (22-30); CHLORIDE 102 mmol/L (98-107); GLUCOSE 97 mg/dL (75-110); LIPASE 210.3 U/L (23-300); POTASSIUM 3.8 mmol/L (3.6-5.0); SODIUM 139.8 mmol/L (137-145); TOTAL PROTEIN 6.4 g/dL (6.3-8.2)
[2017-09-17] MEDS ORDERED: ONDANSETRON HCL INJ/PF 4 MG/2 ML SDV IV ONE (00:41)
[2017-09-17] MEDS ORDERED: MORPHINE SULFATE 10 MG/ML INJ IV ONE (00:41)
[2017-09-17] MEDS ORDERED: PIPERACILLIN/TAZOBACTAM 4.5 GM VIAL IV ONE (00:43)
[2017-09-17 00:51] LABS: A TYPE INFLUENZA AG NEGATIVE (NEGATIVE); B INFLUENZA AG NEGATIVE (NEGATIVE)
--- NOTE | 2017-09-17 02:39 | RADIOLOGY REPORT (SQ) ---
EXAM DESCRIPTION: CTA CHEST CLINICAL HISTORY: 37 years Female, left sided chest pain COMPARISON: January 11, 2017. TECHNIQUE: IV contrast. Multiplanar reformat. This exam was performed according to our departmental dose-optimization program, which includes automated exposure control, adjustment of the mA and/or kV according to patient size and/or use of iterative reconstruction technique. FINDINGS: Moderate right pleural effusion. Small right lower lobar and lingular atelectasis-pneumonia. Decreased scattered pulmonary lesions include a 1.0 cm spiculated lesion/scar of the superior segment of the left lower lobe along the oblique fissure, image 38 of series 3 compared with prior exam from January 2017. No pulmonary embolus. No right ventricular strain. Right mammary prosthesis. Left jugular central line tip at the upper right atrium. Inferior neck, axillae, mediastinum, lungs, airway, lymphatics, heart, vasculature, upper abdomen, and musculoskeleton appear otherwise unremarkable. Impression: 1. New moderate right pleural effusion. Small bilateral pneumonia/atelectasis. 2. Decreased additional pulmonary lesions. 3. No pulmonary embolus.
[2017-09-17] MEDS ORDERED: HYDROMORPHONE HCL INJ/PF 2 MG/ML AMPULE IV ONE (02:43)
[2017-09-17 03:05] LABS: APPEARANCE,URINE CLEAR; BILIRUBIN,URINE NEGATIVE (NEGATIVE); COLOR,URINE YELLOW; GLUCOSE, URINE NEGATIVE (NEGATIVE); KETONES,URINE NEGATIVE (NEGATIVE); LEUKOCYTE ESTERASE,URINE NEGATIVE (NEGATIVE); NITRITE,URINE NEGATIVE (NEGATIVE); PROTEIN,URINE NEGATIVE (NEGATIVE); UROBILINOGEN,URINE NEGATIVE mg/dL (<2.0)
[2017-09-17 03:06] LABS: URINE SPECIFIC GRAVITY > 1.060
[2017-09-17] MEDS ORDERED: VANCOMYCIN HCL INJ 1000 MG VIAL IV ONE (03:20)
[2017-09-17] MEDS: 1/2 NORMAL SALINE 1,000 ML IV PRN (05:06)
[2017-09-17] MEDS: ALBUTEROL SULFATE 0.083% NEB 2.5 MG/3 ML AMPUL NEB PRN ×3 (05:12→16:30)
[2017-09-17] MEDS: LANSOPRAZOLE 30 MG TAB.RAP.DR PO SCH (05:12)
[2017-09-17] MEDS ORDERED: PHARMACY COMMUNICATION ORDER MC NR ×3 (05:15→05:45)
[2017-09-17] MEDS ORDERED: PIPERACILLIN/TAZOBACTAM 3.375 GM VIAL IV PRN (05:21)
[2017-09-17] MEDS ORDERED: PIPERACILLIN SODIUM/TAZOBACTAM 3.375 GM in NORMAL SALINE 100 ML IV SCH (06:00)
[2017-09-17 06:29] LABS: INTERNATIONAL RATION (INR) 1.06; PROTHROMBIN TIME 14.4 SEC (11.4-15.4)
--- NOTE | 2017-09-17 07:52 | PDOC H&P ---
History of Present Illness Admission Date/PCP: 09/17/17 03:30 ANDREA HOPPER MD Patient complains of: dyspnea fever History of Present Illness: EFFIE LOUIS is a 37 year old female with stage 4 breast cancer and multiple thoracenteses for R effusion. Brain mets seen on march mri. Jun mri ok. 3w ago went to [place] for aunt and 2 cousins killed by cement truck. 2w weeks nasal congestion cough sputum fever 101 myalgia R breast implant pain. Yesterday vomiting and dyspnea. Past Medical History Cardiac Medical History: Denies: Coronary Artery Disease, Myocardial Infarction, Hypertension Pulmonary Medical History: Reports: Asthma - TEENAGER, Pneumonia - recently d /c'd 05/10/17 Denies: Bronchitis, Chronic Obstructive Pulmonary Disease (COPD), Tuberculosis Neurological Medical History: Reports: Migraine, Seizures Endocrine Medical History: Reports: None Renal/ Medical History: Reports: None Malignancy Medical History: Reports: Breast Cancer - right mastectomy GI Medical History: Reports: Gastroesophageal Reflux Disease Denies: Hiatal Hernia Musculoskeltal Medical History: Reports: Fibromyalgia Denies: Arthritis Psychiatric Medical History: Denies: Depression Traumatic Medical History: Reports: None Hematology: Denies: Anemia, Sickle Cell Disease Infectious Medical History: Reports: None Past Surgical History Past Surgical History: Reports: Amputation, Section - x2, Cholecystectomy, Mastectomy - Right right mastectomy with axillary node dissection, Orthopedic Surgery, Tonsillectomy, Tubal Ligation, Vascular Surgery - Left chest wall port Social History Information Source: Dr. Robbins Lives with: Family Smoking Status: Never Smoker Frequency of Alcohol Use: None Hx Recreational Drug Use: No Drugs: None Hx Prescription Drug Abuse: No - Advance Directive Resuscitation Status: Full Code Family History Family History: DM Parental Family History Reviewed: Yes Children Family History Reviewed: Yes Sibling(s) Family History Reviewed.: Yes Medication/Allergy Home Medications: Albuterol Sulfate [Albuterol Sulfate 2.5mg/3 mL] 1 vial IH Q4 PRN 05/09/17 Albuterol Sulfate [Proair HFA Inhalation Aerosol 8.5 gm MDI] 2 puff IH Q4 PRN Benzonatate [Tessalon Perles 100 mg Capsule] 200 mg PO Q8 05/09/17 Docusate Sodium [Colace 100 mg Capsule] 100 mg PO BID 05/09/17 Linaclotide [Linzess 145 Mcg Capsule] 145 mcg PO DAILY 05/09/17 Omeprazole 40 mg PO DAILY 05/09/17 Ondansetron [Zofran Odt] 8 mg PO Q8HP PRN 05/09/17 Oxycodone HCl 20 mg PO Q4HP PRN 05/09/17 Oxycodone HCl [Oxycontin Sr 40 mg Tablet] 40 mg PO Q12 05/09/17 Zolpidem Tartrate [Ambien] 10 mg PO HSP PRN 05/09/17 Levofloxacin 750 mg PO DAILY #5 tablet 08/22/17 Allergies/Adverse Reactions: Adhesive Bandage * [Adhesive Bandage] Allergy (Mild, Verified 09/17/17 01:25) Generalized rash adhesive tape [Adhesive Tape] Allergy (Mild, Verified 09/17/17 01:25) Generalized rash Review of Systems Constitutional: PRESENT: fever(s), headache(s), weight loss - 38 in 7m Cardiovascular: PRESENT: chest pain, dyspnea on exertion. ABSENT: edema, orthropnea Respiratory: PRESENT: cough, dyspnea, sputum Gastrointestinal: PRESENT: abdominal pain, vomiting. ABSENT: constipation, diarrhea, hematochezia Genitourinary: ABSENT: dysuria, hematuria Musculoskeletal: PRESENT: back pain Integumentary: ABSENT: rash Psychiatric: PRESENT: depression Physical Exam Vital Signs: Temp Pulse Resp BP Pulse Ox 97.6 F 17 111/79 94 09/17/17 03:55 09/17/17 04:01 09/17/17 04:01 09/17/17 04:01 General appearance: PRESENT: no acute distress Eye exam: ABSENT: conjunctival injection, scleral icterus Mouth exam: PRESENT: dry mucosa Neck exam: ABSENT: lymphadenopathy, meningismus, thyromegaly, tracheal deviation Respiratory exam: PRESENT: wheezes - moderate Cardiovascular exam: PRESENT: systolic murmur. ABSENT: clicks, irregular rhythm Murmur grade: 2 GI/Abdominal exam: ABSENT: mass, organolmegaly, tenderness Extremities exam: ABSENT: pedal edema Neurological exam: PRESENT: oriented to situation Psychiatric exam: PRESENT: appropriate affect Results Laboratory Results: Abnormal - 24 hr 09/16/17 09/16/17 09/16/17 23:35 23:35 23:35 RBC 3.36 L Hgb 11.7 L Hct 34.4 L MCV 103 H MCH 34.7 H RDW 16.9 H Monocytes % 14.3 H Carbon Dioxide 31 H BUN 5 L Lactic Acid 0.5 L Assessment & Plan - Diagnosis (1) Malignant neoplasm of upper-outer quadrant of right female breast Qualifiers: Estrogen receptor status: unspecified Qualified Code(s): C50.411 - Malignant neoplasm of upper-outer quadrant of right female breast Is this a current diagnosis for this admission?: Yes Plan: consult onc (2) Pleural effusion Is this a current diagnosis for this admission?: Yes Plan: thoracentesis (3) Sepsis Qualifiers: Sepsis type: sepsis due to unspecified organism Qualified Code(s): A41.9 - Sepsis, unspecified organism Is this a current diagnosis for this admission?: Yes Plan: antibiotics (4) Brain metastases Is this a current diagnosis for this admission?: Yes - Inpatient Certification Based on my medical assessment, after consideration of the patient's comorbidities, presenting symptoms, or acuity I expect that the services needed warrant INPATIENT care.: Yes I certify that my determination is in accordance with my understanding of Medicare's requirements for reasonable and necessary INPATIENT services [42 CFR 412.3e].: Yes Medical Necessity: Failure to Improve With Outpatient Therapy, Significant Comorbidiites Make Outpatient Treatment Too Risky, Need Close Monitoring Due to Risk of Patient Decompensation, Need For IV Fluids, Need for Pain Control, Need for IV Antibiotics, Need for Surgery, Risk of Complication if Not Cared For in Hospital, Risk of Diagnosis Which Will Require Inpatient Eval/Care/Monitoring
--- NOTE | 2017-09-17 08:02 | RADIOLOGY REPORT (SQ) ---
EXAM DESCRIPTION: CHEST 2 VIEWS COMPLETED DATE/TIME: 09/16/2017 11:11 pm REASON FOR STUDY: cough, SOB COMPARISON: Chest film 05/09/2017, 08/22/2017 EXAM PARAMETERS: NUMBER OF VIEWS: two views TECHNIQUE: Digital Frontal and Lateral radiographic views of the chest acquired. RADIATION DOSE: NA LIMITATIONS: none FINDINGS: LUNGS AND PLEURA: Moderate right pleural effusion with right basilar airspace disease, lik eric atelectasis. This is increased compared to 08/22/2017 and new compared to 05/09/2017. Left lung clear. No pleural effusion. No right or left pneumothorax MEDIASTINUM AND HILAR STRUCTURES: No masses or contour abnormalities. HEART AND VASCULAR STRUCTURES: Heart normal size. No evidence for failure. BONES: No acute findings. HARDWARE: Clips right upper quadrant post cholecystectomy. Post right mastectomy with breast implant . Left-sided permanent central line tip in the superior vena cava OTHER: No other significant finding. IMPRESSION: Moderate right pleural effusion with right basilar consolidation likely atelectasis. TECHNICAL DOCUMENTATION: JOB ID: [id number]- All Rights Reserved Reading location - IP/workstation name: [facility]
--- NOTE | 2017-09-17 08:51 | PDOC CONSULTATION ---
Consultation Consult Date: 09/17/17 Attending physician:: ANDREA HOPPER Consult reason:: stage IV breast cancer, R pleural effusion, pneumonia History of Present Illness Admission Date/PCP: 09/17/17 03:30 ANDREA HOPPER MD Patient complains of: SOB/cough, congestion History of Present Illness: 37-year-old female well-known to our oncology clinic with known history of stage IV breast cancer with pulmonary metastasis, brain metastasis history, currently on endocrine therapy with IBRANCE, LUPRON, FEMARA, she has been actually doing very well with therapy, she has been responding well, about 3 weeks ago began having shortness of breath and cough, congestion, we gave her one course of Levaquin, she completed a seven-day course of that, unfortunately the cough worsened and shortness of breath worsened, ultimately she became very weak and came into the ED because of shortness of breath and congestion, chest x -ray indicated a right pleural effusion and opacity on the right, CT of the chest indicated a right pleural effusion with atelectasis and pneumonia on the right side, of note the pulmonary nodules associated with her breast cancer are decreased in size and number, indicating good response to therapy thus far. She does have chronic pain associated with the cancer, and is taking oxycodone and OxyContin for this. Past Medical History Cardiac Medical History: Denies: Coronary Artery Disease, Myocardial Infarction, Hypertension Pulmonary Medical History: Reports: Asthma - TEENAGER, Pneumonia - recently d /c'd 05/10/17 Denies: Bronchitis, Chronic Obstructive Pulmonary Disease (COPD), Tuberculosis Neurological Medical History: Reports: Migraine, Seizures Endocrine Medical History: Reports: None Renal/ Medical History: Reports: None Malignancy Medical History: Reports: Brain Cancer, Breast Cancer - right mastectomy, Lung Cancer GI Medical History: Reports: Gastroesophageal Reflux Disease Denies: Hiatal Hernia Musculoskeltal Medical History: Reports: Fibromyalgia Denies: Arthritis Psychiatric Medical History: Denies: Depression Traumatic Medical History: Reports: None Hematology: Denies: Anemia, Sickle Cell Disease Infectious Medical History: Reports: None Past Surgical History Past Surgical History: Reports: Amputation, Section - x2, Cholecystectomy, Mastectomy - Right right mastectomy with axillary node dissection, Orthopedic Surgery, Tonsillectomy, Tubal Ligation, Vascular Surgery - Left chest wall port Social History Information Source: Patient Lives with: Family Smoking Status: Never Smoker Frequency of Alcohol Use: None Hx Recreational Drug Use: No Drugs: None Hx Prescription Drug Abuse: No - Advance Directive Resuscitation Status: Full Code Family History Family History: DM Parental Family History Reviewed: Yes Children Family History Reviewed: Yes Sibling(s) Family History Reviewed.: Yes Medication/Allergy Allergies/Adverse Reactions: Adhesive Bandage * [Adhesive Bandage] Allergy (Mild, Verified 09/17/17 01:25) Generalized rash adhesive tape [Adhesive Tape] Allergy (Mild, Verified 09/17/17 01:25) Generalized rash Review of Systems Constitutional: PRESENT: anorexia, chills, fatigue, fever(s), weakness Cardiovascular: PRESENT: chest pain, dyspnea on exertion Gastrointestinal: PRESENT: constipation, nausea, vomiting Integumentary: ABSENT: rash, wounds Endocrine: PRESENT: cold intolerance Physical Exam Vital Signs: Temp Pulse Resp BP Pulse Ox 97.6 F 15 111/77 93 09/17/17 03:55 09/17/17 07:13 09/17/17 07:13 09/17/17 07:13 General appearance: PRESENT: no acute distress, well-developed, well-nourished Head exam: PRESENT: atraumatic, normocephalic Eye exam: PRESENT: conjunctiva pink, EOMI, PERRLA. ABSENT: scleral icterus Ear exam: PRESENT: normal external ear exam Mouth exam: PRESENT: moist, tongue midline Neck exam: ABSENT: carotid bruit, JVD, lymphadenopathy, thyromegaly Respiratory exam: PRESENT: clear to auscultation jose. ABSENT: rales, rhonchi, wheezes Cardiovascular exam: PRESENT: RRR. ABSENT: diastolic murmur, rubs, systolic murmur Pulses: PRESENT: normal dorsalis pedis pul Vascular exam: PRESENT: normal capillary refill GI/Abdominal exam: PRESENT: normal bowel sounds, soft. ABSENT: distended, guarding, mass, organolmegaly, rebound, tenderness Rectal exam: PRESENT: deferred Extremities exam: PRESENT: full ROM. ABSENT: calf tenderness, clubbing, pedal edema Neurological exam: PRESENT: alert, awake, oriented to person, oriented to place , oriented to time, oriented to situation, CN II-XII grossly intact. ABSENT: motor sensory deficit Psychiatric exam: PRESENT: appropriate affect, normal mood. ABSENT: homicidal ideation, suicidal ideation Skin exam: PRESENT: dry, intact, warm. ABSENT: cyanosis, rash Results Impressions: Chest X-Ray 09/16/17 22:43 IMPRESSION: Moderate right pleural effusion with right basilar consolidation likely atelectasis. Status: Image reviewed by me Assessment & Plan - Diagnosis (1) Pleural effusion Is this a current diagnosis for this admission?: Yes Plan: Right pleural effusion, likely infectious related, I ordered fluid analysis on the thoracentesis with culture as well as cytology, agree with broad-spectrum antibiotics with Zosyn and Vanco, unlikely to be atypical because she just completed a course of Levaquin. (2) Metastatic breast cancer Is this a current diagnosis for this admission?: Yes Plan: We will hold her medications for breast cancer for now, restart as an outpatient. (3) Pain, neoplasm-related Is this a current diagnosis for this admission?: Yes Plan: I initiated oxycodone and Dilaudid for breakthrough pain, continue with OxyContin. - Time Time Spent: Greater than 70 Minutes Disposition: Today spent greater than 70 minutes in coordination and discussion with patient. - Inpatient Certification Based on my medical assessment, after consideration of the patient's comorbidities, presenting symptoms, or acuity I expect that the services needed warrant INPATIENT care.: Yes I certify that my determination is in accordance with my understanding of Medicare's requirements for reasonable and necessary INPATIENT services [42 CFR 412.3e].: Yes Medical Necessity: Need For IV Fluids, Need for Pain Control, Need for IV Antibiotics, Need for Surgery, Risk of Complication if Not Cared For in Hospital
[2017-09-17] MEDS: OXYCODONE HCL SR 40 MG TABLET PO SCH ×2 (09:03→20:49)
[2017-09-17] MEDS: DOCUSATE SODIUM 100 MG CAPSULE PO SCH ×2 (09:04→20:04)
[2017-09-17] MEDS ORDERED: PROMETHAZINE HCL 25 MG TABLET PO PRN (09:40)
[2017-09-17] MEDS: VANCOMYCIN HCL 1,000 MG in DEXTROSE 5%-WATER 250 ML IV SCH ×2 (09:43→20:04)
[2017-09-17] MEDS ORDERED: HYDROMORPHONE HCL INJ/PF 2 MG/ML AMPULE IV PRN (09:56)
[2017-09-17] MEDS ORDERED: (PENDING PHARMACY ID) (Linaclotide 145 MCG) PO SCH (10:00)
[2017-09-17] MEDS: HYDROXYZINE HCL 10 MG TABLET PO PRN ×2 (10:33→20:50)
[2017-09-17] MEDS: ONDANSETRON HCL INJ/PF 4 MG/2 ML SDV IV PRN (10:33)
[2017-09-17] MEDS: PIPERACILLIN SODIUM/TAZOBACTAM 3.375 GM in NORMAL SALINE 100 ML IV SCH ×3 (11:25→23:40)
[2017-09-17] MEDS ORDERED: LIDOCAINE 1% INJ-PF (10 MG/ML) 30 ML SDV ONE (13:10)
--- NOTE | 2017-09-17 14:15 | RADIOLOGY REPORT (SQ) ---
EXAM DESCRIPTION: CHEST SINGLE VIEW COMPLETED DATE/TIME: 09/17/2017 2:03 pm REASON FOR STUDY: S/P RT THORACENTESIS COMPARISON: Ultrasound-guided thoracentesis minutes ago, CT chest 09/17/2017 Two-view chest 09/16/2017, 08/22/2017 EXAM PARAMETERS: NUMBER OF VIEWS: One view. TECHNIQUE: Single frontal radiographic view of the chest acquired. RADIATION DOSE: NA LIMITATIONS: None. FINDINGS: LUNGS AND PLEURA: Immediately post right-sided thoracentesis with removal of 1 L of clear chemo colored fluid from the right chest. There is still a small residual right pleural effusion, with right middle and lower lobe airspace dis ease likely atelectasis. No pneumothorax. Left lung well inflated and clear. No left pleural effusion or pneumothorax. MEDIASTINUM AND HILAR STRUCTURES: No masses. Contour normal. HEART AND VASCULAR STRUCTURES: Heart normal in size. Normal vasculature. BONES: No acute findings. HARDWARE: Left-sided permanent central line tip superior vena cava OTHER: No other significant finding. IMPRESSION: No pneumothorax post thoracentesis right side. Small residual right pleural effusion with right middle and lower lobe airspace disease. TECHNICAL DOCUMENTATION: JOB ID: [id number] [employer]- All Rights Reserved Reading location - IP/workstation name: [email or web address]
--- NOTE | 2017-09-17 14:17 | RADIOLOGY REPORT (SQ) ---
EXAM DESCRIPTION: U/S THORACENTESIS WITH IMAGING COMPLETED DATE/TIME: 09/17/2017 1:49 pm REASON FOR STUDY: breast cancer dyspnea COMPARISON: CT CHEST 09/17/2017 LIMITATIONS: None. PROCEDURE: Procedure, risks, benefit, and alternative explained to patient who then gave written con sent. The posterior right chest wall was marked using ultrasound guidance. A time-out was called fo r correct marking verification. Chest prepped and draped using sterile technique. Local anesthesia a chieved using 6 ml of 1% lidocaine injection. A 6fr Safe-T- Centesis set was introduced into the pos terior right pleural space. Fluid was aspirated. The catheter was removed and the entry site was co darwin with sterile bandage. No immediate complications noted. Fluid was sent for testing as per Dr. Ahn Images acquired during the procedure were stored on PACS. FINDINGS: ENTRY SITE: Posterior right chest FLUID VOLUME: 1000 mL of clear straw-colored fluid FLUID ANALYSIS: Sent for testing as per the patient's oncologist OTHER: No pneumothorax on post procedure chest x-ray dictated separately IMPRESSION: SUCCESSFUL THORACENTESIS USING ULTRASOUND GUIDANCE. COMMENT: Patient medication list reviewed: Yes- Quality ID# [id number]:Eligible professional attests to doc umenting in the medical record they obtained, updated, or reviewed the patient's current medications. TECHNICAL DOCUMENTATION: JOB ID: [id number] [employer]- All Rights Reserved Reading location - IP/workstation name: [facility]-RR
[2017-09-17 15:09] LABS: FLUID TYPE PLEURAL
[2017-09-17 15:10] LABS: FLUID APPEARANCE CLOUDY; FLUID COLOR YELLOW; FLUID VISCOSITY SLIGHTLY VISCOUS
--- NOTE | 2017-09-17 16:09 | RADIOLOGY REPORT (SQ) ---
EXAM DESCRIPTION: CHEST SINGLE VIEW COMPLETED DATE/TIME: 09/17/2017 3:53 pm REASON FOR STUDY: 2 HOURS S/P RT THORACENTESIS COMPARISON: CT chest 09/17/2017 AP chest 09/17/2017, 1400 hours EXAM PARAMETERS: NUMBER OF VIEWS: One view. TECHNIQUE: Single frontal radiographic view of the chest acquired. RADIATION DOSE: NA LIMITATIONS: None. FINDINGS: LUNGS AND PLEURA: Minimal right pleural fluid persists at the right lung base. No right-sided pneumothorax. Improved aeration of the right middle and lower lobe compared to the immediate post thoracentesis vidya ls. Left lung well inflated and clear. No left pleural effusion. No left pneumothorax. MEDIASTINUM AND HILAR STRUCTURES: No masses. Contour normal. HEART AND VASCULAR STRUCTURES: Heart normal in size. Normal vasculature. BONES: No acute findings. HARDWARE: Left-sided permanent central line tip superior vena cava OTHER: No other significant finding. IMPRESSION: Improved aeration of the right middle and lower lobe compared to immediate post thoracen tesis films earlier today Persistent minimal right pleural effusion No right-sided pneumothorax TECHNICAL DOCUMENTATION: JOB ID: [id number] [employer]- All Rights Reserved Reading location - IP/workstation name: [email or web address]
[2017-09-17] MEDS ORDERED: PIPERACILLIN SODIUM/TAZOBACTAM 3.375 GM in NORMAL SALINE 100 ML IV ONE (20:00)
[2017-09-17] MEDS ORDERED: VANCOMYCIN HCL 1,000 MG in DEXTROSE 5%-WATER 250 ML IV ONE (20:30)
[2017-09-17] MEDS: OXYCODONE HCL IR 5 MG TABLET PO PRN (23:40)
[2017-09-18] MEDS: VANCOMYCIN HCL 1,000 MG in DEXTROSE 5%-WATER 250 ML IV SCH ×2 (02:59→10:12)
[2017-09-18] MEDS: ONDANSETRON HCL INJ/PF 4 MG/2 ML SDV IV PRN ×3 (04:49→18:01)
[2017-09-18] MEDS: LANSOPRAZOLE 30 MG TAB.RAP.DR PO SCH (05:00)
[2017-09-18] MEDS: PIPERACILLIN SODIUM/TAZOBACTAM 3.375 GM in NORMAL SALINE 100 ML IV SCH ×3 (05:11→21:18)
[2017-09-18] MEDS: OXYCODONE HCL IR 5 MG TABLET PO PRN ×2 (08:11→19:43)
--- NOTE | 2017-09-18 08:40 | PDOC PROGRESS REPORT ---
Subjective Progress Note for:: 09/18/17 Subjective:: Feeling better this morning, breathing improved after thoracentesis, they shiela 1L fluid off, she feels R reconstructed breast is more swollen, she has known hx of lymphadema but also post op seroma s/p fluid removal in past, so I will order U/S of R breast today. Pain resonably controlled. Reason For Visit: STAGE 4 BREAST CANCER, R EFFUSION, SEPSIS Physical Exam Vital Signs: Temp Pulse Resp BP Pulse Ox 98.0 F 56 L 14 124/54 L 100 09/18/17 07:38 09/18/17 07:38 09/18/17 07:38 09/18/17 07:38 09/18/17 07:38 Intake & Output 09/17/17 09/18/17 09/19/17 06:59 06:59 06:59 Intake Total 1280 Output Total 750 Balance 530 Weight 81.2 kg General appearance: PRESENT: no acute distress, well-developed, well-nourished Head exam: PRESENT: atraumatic, normocephalic Eye exam: PRESENT: conjunctiva pink, EOMI, PERRLA. ABSENT: scleral icterus Ear exam: PRESENT: normal external ear exam Mouth exam: PRESENT: moist, tongue midline Neck exam: ABSENT: carotid bruit, JVD, lymphadenopathy, thyromegaly Respiratory exam: PRESENT: clear to auscultation jose. ABSENT: rales, rhonchi, wheezes Cardiovascular exam: PRESENT: RRR. ABSENT: diastolic murmur, rubs, systolic murmur Pulses: PRESENT: normal dorsalis pedis pul Vascular exam: PRESENT: normal capillary refill GI/Abdominal exam: PRESENT: normal bowel sounds, soft. ABSENT: distended, guarding, mass, organolmegaly, rebound, tenderness Rectal exam: PRESENT: deferred Extremities exam: PRESENT: full ROM. ABSENT: calf tenderness, clubbing, pedal edema Neurological exam: PRESENT: alert, awake, oriented to person, oriented to place , oriented to time, oriented to situation, CN II-XII grossly intact. ABSENT: motor sensory deficit Psychiatric exam: PRESENT: appropriate affect, normal mood. ABSENT: homicidal ideation, suicidal ideation Skin exam: PRESENT: dry, intact, warm. ABSENT: cyanosis, rash Results Laboratory Results: 09/17/17 13:35 Fluid Type PLEURAL Fluid Source Fluid Color YELLOW Fluid Appearance CLOUDY Fluid Viscosity SLIGHTLY VISCOUS Fluid WBC 1302 Fluid RBC 2273 Impressions: Chest X-Ray 09/17/17 00:00 IMPRESSION: Improved aeration of the right middle and lower lobe compared to immediate post thoracentesis films earlier today Persistent minimal right pleural effusion No right-sided pneumothorax Thoracentesis Ultrasound 09/17/17 00:00 IMPRESSION: SUCCESSFUL THORACENTESIS USING ULTRASOUND GUIDANCE. Assessment & Plan - Diagnosis (1) Pleural effusion Is this a current diagnosis for this admission?: Yes Plan: Likely parapneumonic but analysis pending. Will monitor, cont broad spec atbx x 24 more hours. If cx neg, d/c vanc by tomorrow. Ultimately will need oral atbx that covers anaerobes. (2) Metastatic breast cancer Is this a current diagnosis for this admission?: Yes Plan: Will cont rx as outpt, current tx on hold (3) Pain, neoplasm-related Is this a current diagnosis for this admission?: Yes Plan: Cont current regimen (4) Recurrent seroma of breast Is this a current diagnosis for this admission?: Yes Plan: Unsure if this is case but order u/s, if fluid there plan removal by general surgery - Time Time Spent with patient: 35 or more minutes - Inpatient Certification Based on my medical assessment, after consideration of the patient's comorbidities, presenting symptoms, or acuity I expect that the services needed warrant INPATIENT care.: Yes I certify that my determination is in accordance with my understanding of Medicare's requirements for reasonable and necessary INPATIENT services [42 CFR 412.3e].: Yes Medical Necessity: Need for IV Antibiotics
[2017-09-18] MEDS: OXYCODONE HCL SR 40 MG TABLET PO SCH ×2 (10:08→21:09)
[2017-09-18] MEDS: LUBIPROSTONE 24 MCG CAPSULE PO SCH ×2 (10:12→18:10)
[2017-09-18] MEDS: DOCUSATE SODIUM 100 MG CAPSULE PO SCH ×2 (10:12→18:10)
[2017-09-18 10:39] LABS: VANCOMYCIN,TROUGH 10.5 ug/mL (5.0-20.0)
[2017-09-18] MEDS ORDERED: LIDOCAINE 1% INJ-PF (10 MG/ML) 30 ML SDV ONE (11:48)
[2017-09-18] MEDS ORDERED: DIPHENHYDRAMINE HCL 50 MG CAPSULE PO PRN (16:31)
[2017-09-18] MEDS: VANCOMYCIN HCL 1,500 MG in DEXTROSE 5%-WATER 250 ML IV SCH (18:01)
[2017-09-18] MEDS ORDERED: PHENYTOIN SODIUM INJ/PF 250 MG/5 ML SDV ONE (20:18)
[2017-09-18] MEDS ORDERED: PHENYTOIN SODIUM INJ/PF 250 MG/5 ML SDV IV ONE (21:15)
[2017-09-19] MEDS: VANCOMYCIN HCL 1,500 MG in DEXTROSE 5%-WATER 250 ML IV SCH (01:47)
[2017-09-19] MEDS: OXYCODONE HCL IR 5 MG TABLET PO PRN ×3 (02:38→23:15)
[2017-09-19] MEDS: PIPERACILLIN SODIUM/TAZOBACTAM 3.375 GM in NORMAL SALINE 100 ML IV SCH ×4 (03:19→21:05)
[2017-09-19] MEDS: LANSOPRAZOLE 30 MG TAB.RAP.DR PO SCH (05:02)
[2017-09-19] MEDS ORDERED: MINERAL OIL ENEMA 133 ML PR ONE (05:12)
--- NOTE | 2017-09-19 06:29 | PDOC PROGRESS REPORT ---
Subjective Progress Note for:: 09/19/17 Subjective:: last evening nurses witnessed 2 symmetric tonic clonic seizures. I had diagnosed epilepsy years ago, but she was noncompliant with keppra. I loaded her with dilantin, but she was reluctant to let the nurse finish the infusion. She says Dr Ahn told her not to take the keppra. I told her she can take it or call Dr Ahn next time she needs admission. She was upset. Today she refused an enema for no stool in 3 days on high opioid dose. We have control issues. Reason For Visit: SEPSIS STAGE 4 BREAST CANCER Physical Exam Vital Signs: Temp Pulse Resp BP Pulse Ox 98.4 F 71 16 115/75 98 09/19/17 03:13 09/19/17 03:13 09/19/17 03:13 09/19/17 04:00 09/19/17 03:13 Intake & Output 09/17/17 09/18/17 09/19/17 07:59 07:59 07:59 Intake Total 1280 3401 Output Total 750 950 Balance 530 2451 Weight 179 lb 0.246 oz Respiratory exam: PRESENT: clear to auscultation jose Cardiovascular exam: ABSENT: diastolic murmur, irregular rhythm, systolic murmur Murmur grade: 2 Extremities exam: ABSENT: pedal edema Neurological exam: PRESENT: alert Psychiatric exam: PRESENT: agitated Results Laboratory Results: 09/18/17 09:18 09/17/17 09/18/17 13:35 09:18 Creatinine 0.76 Est GFR ( Amer) > 60 Est GFR (Non-Af Amer) > 60 Fluid LDH 225 Impressions: Chest X-Ray 09/17/17 00:00 IMPRESSION: Improved aeration of the right middle and lower lobe compared to immediate post thoracentesis films earlier today Persistent minimal right pleural effusion No right-sided pneumothorax Thoracentesis Ultrasound 09/17/17 00:00 IMPRESSION: SUCCESSFUL THORACENTESIS USING ULTRASOUND GUIDANCE. Assessment & Plan - Diagnosis (1) Malignant neoplasm of upper-outer quadrant of right female breast Qualifiers: Estrogen receptor status: unspecified Qualified Code(s): C50.411 - Malignant neoplasm of upper-outer quadrant of right female breast Is this a current diagnosis for this admission?: Yes (2) Pleural effusion Is this a current diagnosis for this admission?: Yes Plan: cultures pending. Polys 3%. (3) Sepsis Qualifiers: Sepsis type: sepsis due to unspecified organism Qualified Code(s): A41.9 - Sepsis, unspecified organism Is this a current diagnosis for this admission?: Yes Plan: ?stop vanc (4) Brain metastases Is this a current diagnosis for this admission?: Yes (5) Generalized convulsive epilepsy Is this a current diagnosis for this admission?: Yes Plan: kendra is ordered - Inpatient Certification Medical Necessity: Failure to Improve With Outpatient Therapy, Significant Comorbidiites Make Outpatient Treatment Too Risky, Need Close Monitoring Due to Risk of Patient Decompensation, Need For IV Fluids, Need For Continuous Telemetry Monitoring, Need for Pain Control, Need for IV Antibiotics, Risk of Complication if Not Cared For in Hospital, Risk of Diagnosis Which Will Require Inpatient Eval/Care/Monitoring
--- NOTE | 2017-09-19 08:21 | PDOC PROGRESS REPORT ---
Subjective Progress Note for:: 09/19/17 Subjective:: yesterday pt had fall then seizure activity noted thereafter, was given phenytoin IV, this am feeling tired, having some COMBS. Has not had BM x 3 days, I discussed bowel regimen w/ pt. She had U/S of R breast yesterday but don't have report and Dr. Mena was going to see her today. Reason For Visit: SEPSIS STAGE 4 BREAST CANCER Physical Exam Vital Signs: Temp Pulse Resp BP Pulse Ox 98.4 F 71 16 115/75 98 09/19/17 03:13 09/19/17 07:00 09/19/17 03:13 09/19/17 04:00 09/19/17 03:13 Intake & Output 09/18/17 09/19/17 09/20/17 06:59 06:59 06:59 Intake Total 1280 3641 Output Total 750 1400 Balance 530 2241 Weight 81.2 kg 81.2 kg General appearance: PRESENT: no acute distress, well-developed, well-nourished Head exam: PRESENT: atraumatic, normocephalic Eye exam: PRESENT: conjunctiva pink, EOMI, PERRLA. ABSENT: scleral icterus Ear exam: PRESENT: normal external ear exam Mouth exam: PRESENT: moist, tongue midline Neck exam: ABSENT: carotid bruit, JVD, lymphadenopathy, thyromegaly Respiratory exam: PRESENT: clear to auscultation jose. ABSENT: rales, rhonchi, wheezes Cardiovascular exam: PRESENT: RRR. ABSENT: diastolic murmur, rubs, systolic murmur Pulses: PRESENT: normal dorsalis pedis pul Vascular exam: PRESENT: normal capillary refill GI/Abdominal exam: PRESENT: normal bowel sounds, soft. ABSENT: distended, guarding, mass, organolmegaly, rebound, tenderness Rectal exam: PRESENT: deferred Extremities exam: PRESENT: full ROM. ABSENT: calf tenderness, clubbing, pedal edema Neurological exam: PRESENT: alert, awake, oriented to person, oriented to place , oriented to time, oriented to situation, CN II-XII grossly intact. ABSENT: motor sensory deficit Psychiatric exam: PRESENT: appropriate affect, normal mood. ABSENT: homicidal ideation, suicidal ideation Skin exam: PRESENT: dry, intact, warm. ABSENT: cyanosis, rash Results Laboratory Results: 09/18/17 09:18 09/17/17 09/18/17 13:35 09:18 Creatinine 0.76 Est GFR ( Amer) > 60 Est GFR (Non-Af Amer) > 60 Fluid LDH 225 Impressions: Chest X-Ray 09/17/17 00:00 IMPRESSION: Improved aeration of the right middle and lower lobe compared to immediate post thoracentesis films earlier today Persistent minimal right pleural effusion No right-sided pneumothorax Thoracentesis Ultrasound 09/17/17 00:00 IMPRESSION: SUCCESSFUL THORACENTESIS USING ULTRASOUND GUIDANCE. Assessment & Plan - Diagnosis (1) Pleural effusion Is this a current diagnosis for this admission?: Yes Plan: Hopefully parapneumonic, cultures thus far negative, will d/c vancomycin and con 't zosyn as cultures thus far negative. (2) Metastatic breast cancer Is this a current diagnosis for this admission?: Yes Plan: Hold on further chemo/rx for now until pt is d/c'd from [facility] (3) Pain, neoplasm-related Is this a current diagnosis for this admission?: Yes Plan: Cont current pain regimen (4) Recurrent seroma of breast Is this a current diagnosis for this admission?: Yes Plan: Will have surgery see pt today (5) Constipation due to opioid therapy Is this a current diagnosis for this admission?: Yes Plan: Already on stool softener and amitaza, give lactulose today (this is what she takes at home to have BM) - Time Time Spent with patient: 35 or more minutes - Inpatient Certification Based on my medical assessment, after consideration of the patient's comorbidities, presenting symptoms, or acuity I expect that the services needed warrant INPATIENT care.: Yes I certify that my determination is in accordance with my understanding of Medicare's requirements for reasonable and necessary INPATIENT services [42 CFR 412.3e].: Yes Medical Necessity: Need for IV Antibiotics
[2017-09-19] MEDS ORDERED: LEVETIRACETAM 500 MG TABLET PO SCH (10:00)
[2017-09-19] MEDS: DOCUSATE SODIUM 100 MG CAPSULE PO SCH ×2 (11:27→18:49)
[2017-09-19] MEDS: LUBIPROSTONE 24 MCG CAPSULE PO SCH ×2 (11:27→18:49)
[2017-09-19] MEDS: LACTULOSE SYRUP 20 GM/30 ML UDCUP PO SCH ×2 (11:28→18:49)
[2017-09-19] MEDS: OXYCODONE HCL SR 40 MG TABLET PO SCH ×2 (11:28→21:45)
[2017-09-19] MEDS: ALBUTEROL SULFATE 0.083% NEB 2.5 MG/3 ML AMPUL NEB PRN ×2 (11:31→15:45)
[2017-09-19] MEDS ORDERED: LIDOCAINE 1% INJ-PF (10 MG/ML) 30 ML SDV ONE ×2 (11:41→12:05)
[2017-09-19] MEDS: ONDANSETRON HCL INJ/PF 4 MG/2 ML SDV IV PRN (14:43)
--- NOTE | 2017-09-19 15:40 | Physician Advisory Note ---
Physician Advisor ProgressNote .: Pursuant to the plan for [facility], I have reviewed the medical record for this patient. Physician Advisor Statement: Tough case! Please consider documenting, if you agree: 1. Principal dx - the #1 dx in each note should be the main reason the patient was felt to need admission - something that was present and acute at time of admission - or else document next to the principal dx "this is the principal dx for this stay". 2. "possible sepsis, suspected but ruled out" OR - "sepsis, due to , evidenced by " (so far, it is documented that she had nasal congestion, cough, sputum, fever to 101 degrees, CP, dyspnea, mylagias, vomiting, abd pain, back pain, & wheezes, new Rt effusion, & infiltrates on CT - do you suspect "Acute Bronchitis " or "Acute Pneumonia, suspect gram-___ type"? Any other s/s of pneumonia or other infxn present?) 3. "opioid dependence" Thanks! CK
--- NOTE | 2017-09-19 15:49 | RADIOLOGY REPORT (SQ) ---
EXAM DESCRIPTION: CHEST 2 VIEWS COMPLETED DATE/TIME: 09/19/2017 3:29 pm REASON FOR STUDY: Possible recurrent fluid in right lung. COMPARISON: Chest films 08/22/2017, 09/16/2017, 09/17/2017 EXAM PARAMETERS: NUMBER OF VIEWS: two views TECHNIQUE: Digital Frontal and Lateral radiographic views of the chest acquired. RADIATION DOSE: NA LIMITATIONS: none FINDINGS: LUNGS AND PLEURA: Stable trace residual right pleural effusion as compared to post thorace ntesis films from 09/17/2017. Patchy right middle and lower lobe airspace disease likely atelectasis. Pneumonia could not entirely be excluded. No right pneumothorax. Left hemithorax unremarkable. MEDIASTINUM AND HILAR STRUCTURES: No masses or contour abnormalities. HEART AND VASCULAR STRUCTURES: Heart normal size. No evidence for failure. BONES: No acute findings. HARDWARE: Left jugular permanent central line tip superior vena cava OTHER: Clips right upper quadrant post cholecystectomy. Old right mastectomy with breast implant IMPRESSION: Stable trace residual right pleural effusion post thoracentesis. Minimal right basilar atelectasis. No pneumothorax. TECHNICAL DOCUMENTATION: JOB ID: [id number] [employer]- All Rights Reserved Reading location - IP/workstation name: [email or web address]
--- NOTE | 2017-09-19 15:53 | WOMENS IMAGING REPORT ---
EXAM DESCRIPTION: U/S BREAST UNILATERAL, COMPL COMPLETED DATE/TIME: 09/18/2017 12:53 pm REASON FOR STUDY: PAIN SWELLING AROUND IMPLANT. STAGE 4 CANCER COMPARISON: Two-view chest 09/17/2017 TECHNIQUE: Real-time and static grayscale imaging performed of the right breast targeted to the area of clinical concern. Selected color Doppler images recorded. LIMITATIONS: None. FINDINGS: Patient describes heaviness or fullness in in the right breast. Patient is post skin spar ing mastectomy and right breast implant placement. A right breast implant is present, retropectoral. Around the periphery of the implant, a moderate am ount of fluid is present. The implant appears grossly intact. Small residual right pleural effusion present. IMPRESSION: Intact right retropectoral breast implant. There is surrounding fluid which is nonspeci fic but abnormal. BIRAD: 3 Probably benign finding. Initial short-interval follow-up suggested. RECOMMENDATION: RECOMMENDED FOLLOW-UP: Right deep chest wall fluid surrounding a grossly intact sali ne breast implant. COMMENT: The [employer] (ACR) has developed recommendations for screening MRI of the breasts in certain patient populations, to be used in conjunction with mammography. Breast MRI s urveillance may be appropriate for women with more than 20% lifetime risk of developing breast cancer as determined by genetic testing, significant family history of the disease, or history of mantle r adiation for Hodgkins Disease. ACR Practice Guidelines 2007. TECHNICAL DOCUMENTATION: JOB ID: [id number] [employer]- All Rights Reserved Reading location - IP/workstation name: [facility]
--- NOTE | 2017-09-19 16:19 | OPERATIVE REPORT E ---
Operative Report NAME: EFFIE LOUIS : 1980 AGE: 37Y DATE OF SURGERY: 09/19/2017 ROOM: 423 PREOPERATIVE DIAGNOSIS: Seroma along the right reconstructed breast with prosthesis. POSTOPERATIVE DIAGNOSIS: Seroma along the right reconstructed breast with prosthesis. PROCEDURE: Aspiration of seroma. SURGEON: FERNANDA JONES M.D. ANESTHESIA: Local. INDICATION: This is a 37-year-old female with right breast mastectomy for cancer and now with metastasis. She had a prosthesis placed on the right breast and now complaining of some tightness. I looked at the CAT scan of the abdomen which involved part of the breast and it appears that there is a small amount of seroma along the breast just underneath the skin. The breast itself noted to have some fluid. Because of this, an aspiration of the seroma is being done. DESCRIPTION OF PROCEDURE: Patient was in bed and placed in supine position. The right breast was prepped with Chloraprep and draped in the usual sterile fashion. Local anesthesia with 1% Xylocaine was injected through the lateral lower quadrant of the breast. An 18 gauge needle was then passed through the anesthetized area and aspirated about 40 mL of clear serosanguineous fluid with partial skin flattening along the right breast. Also, patient felt more comfortable after the procedure. A sample of the aspiration will be sent for PATTERN MARKER. A Band-Aid was placed over the puncture site. Patient tolerated the procedure well. DICTATING PHYSICIAN: FERNANDA JONES M.D. [id number] PHY#: [id number] ID: [id number] JOB#: [id number] ACCT: [id number] cc:FERNANDA JONES M.D. >
[2017-09-19] MEDS ORDERED: PHENYTOIN SODIUM INJ/PF 250 MG/5 ML SDV IV PRN (18:50)
[2017-09-19] MEDS: 1/2 NORMAL SALINE 1,000 ML IV PRN (20:13)
[2017-09-19] MEDS: LEVETIRACETAM 500 MG TABLET PO SCH (21:43)
[2017-09-19] MEDS ORDERED: HYDROXYZINE PAMOATE 25 MG CAPSULE PO PRN (23:07)
[2017-09-20] MEDS: PIPERACILLIN SODIUM/TAZOBACTAM 3.375 GM in NORMAL SALINE 100 ML IV SCH ×4 (03:08→21:09)
[2017-09-20] MEDS: LANSOPRAZOLE 30 MG TAB.RAP.DR PO SCH (05:46)
--- NOTE | 2017-09-20 07:45 | PDOC PROGRESS REPORT ---
Subjective Progress Note for:: 09/20/17 Subjective:: 2 more seizures last evening with apnea 15sec. Dilantin 500iv. Increased keppra to 1g bid and stopped prn oxycodone. In ICU respirations under 10 at times. She demanded and got prn oxycodone from someone else. When I asked if she wanted a new primary doctor, she became irate and threatened to leave AMA. Reason For Visit: SEPSIS STAGE 4 BREAST CANCER Physical Exam Vital Signs: Temp Pulse Resp BP Pulse Ox 98.2 F 72 15 108/89 H 100 09/20/17 04:00 09/19/17 19:47 09/20/17 03:00 09/20/17 02:55 09/20/17 03:00 Intake & Output 09/18/17 09/19/17 09/20/17 07:59 07:59 07:59 Intake Total 1280 3641 Output Total 750 1400 300 Balance 530 2241 -300 Weight 179 lb 0.246 oz 179 lb 0.246 oz 172 lb 13.478 oz General appearance: ABSENT: cooperative Respiratory exam: PRESENT: clear to auscultation jose Cardiovascular exam: ABSENT: diastolic murmur, irregular rhythm, systolic murmur Murmur grade: 2 GI/Abdominal exam: ABSENT: mass, organolmegaly, tenderness Extremities exam: ABSENT: pedal edema Neurological exam: PRESENT: alert, oriented to person, oriented to place, oriented to time. ABSENT: oriented to situation Psychiatric exam: PRESENT: agitated. ABSENT: appropriate affect Results Laboratory Results: 09/18/17 09:18 Impressions: Thoracentesis Ultrasound 09/17/17 00:00 IMPRESSION: SUCCESSFUL THORACENTESIS USING ULTRASOUND GUIDANCE. Chest X-Ray 09/19/17 00:00 IMPRESSION: Stable trace residual right pleural effusion post thoracentesis. Minimal right basilar atelectasis. No pneumothorax. Assessment & Plan - Diagnosis (1) Pleural effusion Is this a current diagnosis for this admission?: Yes Plan: principal diagnosis. Cytology consistant with breast cancer. (2) Malignant neoplasm of upper-outer quadrant of right female breast Qualifiers: Estrogen receptor status: unspecified Qualified Code(s): C50.411 - Malignant neoplasm of upper-outer quadrant of right female breast Is this a current diagnosis for this admission?: Yes (3) Brain metastases Is this a current diagnosis for this admission?: Yes (4) Generalized convulsive epilepsy Is this a current diagnosis for this admission?: Yes (5) Sepsis Qualifiers: Sepsis type: sepsis due to unspecified organism Qualified Code(s): A41.9 - Sepsis, unspecified organism Is this a current diagnosis for this admission?: Yes Plan: suspected rulled out. Cultures negative so far. Cytology proved malignant effusion. (6) Opioid dependence Qualifiers: Substance use status: uncomplicated Qualified Code(s): F11.20 - Opioid dependence, uncomplicated Is this a current diagnosis for this admission?: Yes Plan: Dr Ahn manages. I foresee a robb [address] between pain and respiratory depression and seizures. Hospitalists have agreed to takeover primary care. - Inpatient Certification Medical Necessity: Failure to Improve With Outpatient Therapy, Significant Comorbidiites Make Outpatient Treatment Too Risky, Need Close Monitoring Due to Risk of Patient Decompensation, Need For Continuous Telemetry Monitoring, Need for Pain Control, Need for IV Antibiotics, Risk of Complication if Not Cared For in Hospital, Risk of Diagnosis Which Will Require Inpatient Eval/Care/ Monitoring
--- NOTE | 2017-09-20 08:37 | PDOC PROGRESS REPORT ---
Subjective Progress Note for:: 09/20/17 Subjective:: Yesterday pt again had seizure like activity w/ syncopal episode, Dr. Bose increased Keppra. this am pt very upset and discussed leaving AMA, as she was getting dressed, had another syncopal episode witnessed by nursing. When I saw pt, she was upset and crying but fully alert and oriented, had long discussion about current status of disease, +cytology on pleural fluid and next steps of care, spent 45 min in discussion and coordination of care Reason For Visit: SEPSIS STAGE 4 BREAST CANCER Physical Exam Vital Signs: Temp Pulse Resp BP Pulse Ox 98.2 F 72 10 L 99/72 L 91 L 09/20/17 04:00 09/19/17 19:47 09/20/17 06:00 09/20/17 05:55 09/20/17 06:00 Intake & Output 09/19/17 09/20/17 09/21/17 06:59 06:59 06:59 Intake Total 3641 637 Output Total 1400 300 600 Balance 2241 337 -600 Weight 81.2 kg 78.4 kg General appearance: PRESENT: no acute distress, well-developed, well-nourished Head exam: PRESENT: atraumatic, normocephalic Eye exam: PRESENT: conjunctiva pink, EOMI, PERRLA. ABSENT: scleral icterus Ear exam: PRESENT: normal external ear exam Mouth exam: PRESENT: moist, tongue midline Neck exam: ABSENT: carotid bruit, JVD, lymphadenopathy, thyromegaly Respiratory exam: PRESENT: clear to auscultation jose. ABSENT: rales, rhonchi, wheezes Cardiovascular exam: PRESENT: RRR. ABSENT: diastolic murmur, rubs, systolic murmur Pulses: PRESENT: normal dorsalis pedis pul Vascular exam: PRESENT: normal capillary refill GI/Abdominal exam: PRESENT: normal bowel sounds, soft. ABSENT: distended, guarding, mass, organolmegaly, rebound, tenderness Rectal exam: PRESENT: deferred Extremities exam: PRESENT: full ROM. ABSENT: calf tenderness, clubbing, pedal edema Neurological exam: PRESENT: alert, awake, oriented to person, oriented to place , oriented to time, oriented to situation, CN II-XII grossly intact. ABSENT: motor sensory deficit Psychiatric exam: PRESENT: appropriate affect, normal mood. ABSENT: homicidal ideation, suicidal ideation Skin exam: PRESENT: dry, intact, warm. ABSENT: cyanosis, rash Results Laboratory Results: 09/18/17 09:18 Impressions: Thoracentesis Ultrasound 09/17/17 00:00 IMPRESSION: SUCCESSFUL THORACENTESIS USING ULTRASOUND GUIDANCE. Chest X-Ray 09/19/17 00:00 IMPRESSION: Stable trace residual right pleural effusion post thoracentesis. Minimal right basilar atelectasis. No pneumothorax. Assessment & Plan - Diagnosis (1) Pleural effusion Is this a current diagnosis for this admission?: Yes Plan: Malignant at this point, could've had a parapneumonic component also. Will need to con't to monitor. (2) Metastatic breast cancer Is this a current diagnosis for this admission?: Yes Plan: Holding current rx, looks like she is progressing, although pleural effusion worse, lung nodules seemed better. Will need to consider reimaging brain. I discussed care extensively w/ pt, she is not yet ready for DNR, and she wants to consider next lines of therapy. (3) Pain, neoplasm-related Is this a current diagnosis for this admission?: Yes Plan: Cont current regimen. Adjust as needed. (4) Recurrent seroma of breast Is this a current diagnosis for this admission?: Yes Plan: Fluid removed yesterday, feels better (5) Constipation due to opioid therapy Is this a current diagnosis for this admission?: Yes Plan: Con't current bowel regimen
[2017-09-20] MEDS: LACTULOSE SYRUP 20 GM/30 ML UDCUP PO SCH ×2 (11:01→17:20)
[2017-09-20] MEDS: LEVETIRACETAM 500 MG TABLET PO SCH (11:02)
[2017-09-20] MEDS: DOCUSATE SODIUM 100 MG CAPSULE PO SCH ×2 (11:02→17:19)
[2017-09-20] MEDS: OXYCODONE HCL SR 40 MG TABLET PO SCH ×2 (11:02→21:35)
[2017-09-20] MEDS: LUBIPROSTONE 24 MCG CAPSULE PO SCH ×2 (11:03→17:20)
[2017-09-20] MEDS: LORAZEPAM INJ 2 MG/1 ML VIAL IV PRN ×2 (11:28→17:14)
[2017-09-20] MEDS ORDERED: VALPROATE SODIUM 500 MG in NORMAL SALINE 100 ML IV ONE (13:30)
--- NOTE | 2017-09-20 18:21 | PDOC PROGRESS REPORT ---
Subjective Progress Note for:: 09/20/17 Subjective:: Ms. Sanabria is a very pleasant but unfortunate 67 years old black female patient with a diagnosis of stage IV breast cancer with metastasis to the brain and lung. This morning I discussed the case with oncologist Dr. Moralez who requested hospitalist service to comanage the patient. Patient resting in bed comfortably she is not in pain or distress. The nurse in charge of her reports to me patient has episode of classical absence seizure. Reason For Visit: SEPSIS STAGE 4 BREAST CANCER, seizure Physical Exam Vital Signs: Temp Pulse Resp BP Pulse Ox 98.4 F 95 20 110/86 H 97 09/20/17 12:00 09/20/17 14:00 09/20/17 15:07 09/20/17 15:07 09/20/17 15:07 Intake & Output 09/19/17 09/20/17 09/21/17 06:59 06:59 06:59 Intake Total 3641 637 980 Output Total 0104 820 1870 Balance 2241 337 -1070 Weight 81.2 kg 78.4 kg General appearance: PRESENT: no acute distress Head exam: PRESENT: atraumatic, normocephalic Respiratory exam: PRESENT: decreased breath sounds - Right lung Cardiovascular exam: PRESENT: RRR. ABSENT: diastolic murmur, rubs, systolic murmur GI/Abdominal exam: PRESENT: normal bowel sounds, soft. ABSENT: distended, guarding, mass, organolmegaly, rebound, tenderness Results Laboratory Results: 09/18/17 09:18 Impressions: Thoracentesis Ultrasound 09/17/17 00:00 IMPRESSION: SUCCESSFUL THORACENTESIS USING ULTRASOUND GUIDANCE. Chest X-Ray 09/19/17 00:00 IMPRESSION: Stable trace residual right pleural effusion post thoracentesis. Minimal right basilar atelectasis. No pneumothorax. Assessment & Plan - Diagnosis (1) Pleural effusion Is this a current diagnosis for this admission?: Yes Plan: Past history of recurrent pleural effusion for which she has multiple paracentesis (2) Constipation due to opioid therapy Is this a current diagnosis for this admission?: Yes Plan: Current it is a constipation relatively improved. (3) Metastatic breast cancer Is this a current diagnosis for this admission?: Yes Plan: Management per her oncologist Dr. Moralez (4) Seizure Is this a current diagnosis for this admission?: Yes Plan: Patient has classical absence seizure which is witnessed by the nurse in charge of her. The drug of choice for absence seizure is valproic acid or it was explained. I discontinued the Keppra and phenytoin and I put her on valproic acid 500 mg IV stat then 250 mg p.o. twice daily. - Time Time Spent with patient: 25-34 minutes - Inpatient Certification Medical Necessity: Need for IV Antibiotics
[2017-09-20] MEDS: VALPROATE SODIUM SYRUP 250 MG/5 ML UDCUP PO SCH (21:35)
[2017-09-21] MEDS: OXYCODONE HCL IR 5 MG TABLET PO PRN (00:47)
[2017-09-21] MEDS: PIPERACILLIN SODIUM/TAZOBACTAM 3.375 GM in NORMAL SALINE 100 ML IV SCH ×4 (02:43→20:34)
[2017-09-21 04:16] LABS: ABSOLUTE BASOPHILS # (AUTO) 0.1 10^3/uL (0.0-0.2); ABSOLUTE EOSINOPHILS # (AUTO) 0.4 10^3/uL (0.0-0.6); ABSOLUTE LYMPHOCYTES (AUTO) 0.9 10^3/uL (0.5-4.7); ABSOLUTE MONOCYTES (AUTO) 0.5 10^3/uL (0.1-1.4); ABSOLUTE NEUT (AUTO) 5.3 10^3/uL (1.7-8.2); BASOPHILS % (AUTO) 1.3 % (0-2); HEMATOCRIT 33.7 % (36.0-47.0); HEMOGLOBIN 11.7 g/dL (12.0-15.5); LYMPHOCYTES % (AUTO) 12.2 % (13-45); MEAN CORPUSCULAR HEMOGLOBIN 35.4 pg (27.0-33.4); MEAN CORPUSCULAR HGB CONC 34.6 g/dL (32.0-36.0); MEAN CORPUSCULAR VOLUME 102 fl (80-97); MONOCYTES % (AUTO) 6.7 % (3-13); PLATELET COUNT 376 10^3/uL (150-450); SEGMENTED NEUTROPHILS % (AUTO) 74.8 % (42-78); TOTAL CELLS COUNTED % (AUTO) 100 %
[2017-09-21 04:33] LABS: ANION GAP 9 (5-19); BLOOD UREA NITROGEN 3 mg/dL (7-20); CARBON DIOXIDE 33 mmol/L (22-30); CHLORIDE 102 mmol/L (98-107); GLUCOSE 73 mg/dL (75-110); POTASSIUM 3.7 mmol/L (3.6-5.0); SODIUM 143.6 mmol/L (137-145)
[2017-09-21] MEDS: LANSOPRAZOLE 30 MG TAB.RAP.DR PO SCH (05:28)
[2017-09-21] MEDS ORDERED: ACETAMINOPHEN 325 MG TABLET ONE (05:29)
[2017-09-21] MEDS ORDERED: ACETAMINOPHEN 325 MG TABLET PO PRN (05:34)
[2017-09-21] MEDS: VALPROATE SODIUM SYRUP 250 MG/5 ML UDCUP PO SCH ×2 (09:20→21:04)
[2017-09-21] MEDS: LUBIPROSTONE 24 MCG CAPSULE PO SCH ×2 (09:22→18:43)
[2017-09-21] MEDS: DOCUSATE SODIUM 100 MG CAPSULE PO SCH ×2 (09:22→18:43)
[2017-09-21] MEDS: LACTULOSE SYRUP 20 GM/30 ML UDCUP PO SCH ×2 (09:22→18:43)
[2017-09-21] MEDS: OXYCODONE HCL SR 40 MG TABLET PO SCH ×2 (09:23→21:05)
--- NOTE | 2017-09-21 11:08 | PDOC PROGRESS REPORT ---
Subjective Progress Note for:: 09/21/17 Subjective:: Yesterday pt had 2 witnessed absence seizures, hospitalist team switched from Keppra and phenytoin to Valproic acid. Pt seems depressed this am. Had long discussion w/ pt, spent >45 min in discussion and coordination of care Reason For Visit: SEPSIS STAGE 4 BREAST CANCER Physical Exam Vital Signs: Temp Pulse Resp BP Pulse Ox 98.0 F 100 19 116/95 H 99 09/21/17 10:00 09/21/17 10:00 09/21/17 10:00 09/21/17 10:00 09/21/17 10:00 Intake & Output 09/20/17 09/21/17 09/22/17 06:59 06:59 06:59 Intake Total 637 2892 Output Total 300 3100 Balance 337 -208 Weight 78.4 kg 77.8 kg General appearance: PRESENT: no acute distress, well-developed, well-nourished Head exam: PRESENT: atraumatic, normocephalic Eye exam: PRESENT: conjunctiva pink, EOMI, PERRLA. ABSENT: scleral icterus Ear exam: PRESENT: normal external ear exam Mouth exam: PRESENT: moist, tongue midline Neck exam: ABSENT: carotid bruit, JVD, lymphadenopathy, thyromegaly Respiratory exam: PRESENT: clear to auscultation jose. ABSENT: rales, rhonchi, wheezes Cardiovascular exam: PRESENT: RRR. ABSENT: diastolic murmur, rubs, systolic murmur Pulses: PRESENT: normal dorsalis pedis pul Vascular exam: PRESENT: normal capillary refill GI/Abdominal exam: PRESENT: normal bowel sounds, soft. ABSENT: distended, guarding, mass, organolmegaly, rebound, tenderness Rectal exam: PRESENT: deferred Extremities exam: PRESENT: full ROM. ABSENT: calf tenderness, clubbing, pedal edema Neurological exam: PRESENT: alert, awake, oriented to person, oriented to place , oriented to time, oriented to situation, CN II-XII grossly intact. ABSENT: motor sensory deficit Psychiatric exam: PRESENT: appropriate affect, normal mood. ABSENT: homicidal ideation, suicidal ideation Skin exam: PRESENT: dry, intact, warm. ABSENT: cyanosis, rash Results Laboratory Results: 09/21/17 03:56 09/21/17 03:56 09/21/17 09/21/17 03:56 03:56 WBC 7.0 RBC 3.30 L Hgb 11.7 L Hct 33.7 L MCV 102 H MCH 35.4 H MCHC 34.6 RDW 16.0 H Plt Count 376 Seg Neutrophils % 74.8 Lymphocytes % 12.2 L Monocytes % 6.7 Eosinophils % 5.0 Basophils % 1.3 Absolute Neutrophils 5.3 Absolute Lymphocytes 0.9 Absolute Monocytes 0.5 Absolute Eosinophils 0.4 Absolute Basophils 0.1 Sodium 143.6 Potassium 3.7 Chloride 102 Carbon Dioxide 33 H Anion Gap 9 BUN 3 L Creatinine 0.86 Est GFR ( Amer) > 60 Est GFR (Non-Af Amer) > 60 Glucose 73 L Calcium 9.0 Magnesium 1.9 09/17/17 13:35 Pleural Fluid - Right Pleural Effusion Gram Stain - Final 09/17/17 13:35 Pleural Fluid - Right Pleural Effusion Body Fluid Culture - Final NO AEROBIC OR ANAEROBIC ORGANISMS RECOVERED Impressions: Thoracentesis Ultrasound 09/17/17 00:00 IMPRESSION: SUCCESSFUL THORACENTESIS USING ULTRASOUND GUIDANCE. Chest X-Ray 09/19/17 00:00 IMPRESSION: Stable trace residual right pleural effusion post thoracentesis. Minimal right basilar atelectasis. No pneumothorax. Assessment & Plan - Diagnosis (1) Pleural effusion Is this a current diagnosis for this admission?: Yes Plan: Malignant, cont to monitor, may need pleur-x catheter if rapid accumulation (2) Metastatic breast cancer Is this a current diagnosis for this admission?: Yes (3) Pain, neoplasm-related Is this a current diagnosis for this admission?: Yes Plan: cont current regimen, seems to be controlling pain (4) Recurrent seroma of breast Is this a current diagnosis for this admission?: Yes Plan: Improved post fluid removal, cont to monitor (5) Constipation due to opioid therapy Is this a current diagnosis for this admission?: Yes Plan: Pt had BM, cont to monitor (6) Seizure Is this a current diagnosis for this admission?: Yes Plan: Changes made as above, cont to monitor for 24 more hours, told pt to get up and eat, move around to see if any further seizure related syncope happens
--- NOTE | 2017-09-21 12:18 | PDOC PROGRESS REPORT ---
Subjective Progress Note for:: 09/21/17 Subjective:: I see patient while she is resting in bed comfortably. She is awake alert. She looks depressed she answers all my questions with signs. This morning she has an episode of absence seizures. Reason For Visit: SEPSIS STAGE 4 BREAST CANCER Physical Exam Vital Signs: Temp Pulse Resp BP Pulse Ox 98.3 F 87 13 113/86 H 99 09/21/17 11:46 09/21/17 11:46 09/21/17 11:46 09/21/17 11:46 09/21/17 11:46 Intake & Output 09/20/17 09/21/17 09/22/17 06:59 06:59 06:59 Intake Total 637 2892 480 Output Total 300 3100 850 Balance 337 -208 -370 Weight 78.4 kg 77.8 kg General appearance: PRESENT: no acute distress, well-developed, well-nourished Respiratory exam: PRESENT: clear to auscultation jose. ABSENT: rales, rhonchi, wheezes Cardiovascular exam: PRESENT: RRR. ABSENT: diastolic murmur, rubs, systolic murmur Results Laboratory Results: 09/21/17 03:56 09/21/17 03:56 09/21/17 09/21/17 03:56 03:56 WBC 7.0 RBC 3.30 L Hgb 11.7 L Hct 33.7 L MCV 102 H MCH 35.4 H MCHC 34.6 RDW 16.0 H Plt Count 376 Seg Neutrophils % 74.8 Lymphocytes % 12.2 L Monocytes % 6.7 Eosinophils % 5.0 Basophils % 1.3 Absolute Neutrophils 5.3 Absolute Lymphocytes 0.9 Absolute Monocytes 0.5 Absolute Eosinophils 0.4 Absolute Basophils 0.1 Sodium 143.6 Potassium 3.7 Chloride 102 Carbon Dioxide 33 H Anion Gap 9 BUN 3 L Creatinine 0.86 Est GFR ( Amer) > 60 Est GFR (Non-Af Amer) > 60 Glucose 73 L Calcium 9.0 Magnesium 1.9 09/17/17 13:35 Pleural Fluid - Right Pleural Effusion Gram Stain - Final 09/17/17 13:35 Pleural Fluid - Right Pleural Effusion Body Fluid Culture - Final NO AEROBIC OR ANAEROBIC ORGANISMS RECOVERED Impressions: Thoracentesis Ultrasound 09/17/17 00:00 IMPRESSION: SUCCESSFUL THORACENTESIS USING ULTRASOUND GUIDANCE. Chest X-Ray 09/19/17 00:00 IMPRESSION: Stable trace residual right pleural effusion post thoracentesis. Minimal right basilar atelectasis. No pneumothorax. Assessment & Plan - Diagnosis (1) Pleural effusion Is this a current diagnosis for this admission?: Yes Plan: Past history of recurrent pleural effusion for which she has multiple paracentesis (2) Constipation due to opioid therapy Is this a current diagnosis for this admission?: Yes Plan: No constipation system (3) Metastatic breast cancer Is this a current diagnosis for this admission?: Yes Plan: Management per her oncologist Dr. Moralez (4) Seizure Is this a current diagnosis for this admission?: Yes Plan: Patient continued to get Depakote 500 mg twice daily. - Time Time Spent with patient: 25-34 minutes
[2017-09-21] MEDS: 1/2 NORMAL SALINE 1,000 ML IV PRN (18:44)
[2017-09-22] MEDS: PIPERACILLIN SODIUM/TAZOBACTAM 3.375 GM in NORMAL SALINE 100 ML IV SCH ×2 (03:03→08:33)
[2017-09-22] MEDS: LANSOPRAZOLE 30 MG TAB.RAP.DR PO SCH (06:20)
[2017-09-22 06:36] VITALS: BP 115/81
[2017-09-22] MEDS: VALPROATE SODIUM SYRUP 250 MG/5 ML UDCUP PO SCH (09:34)
[2017-09-22] MEDS: OXYCODONE HCL SR 40 MG TABLET PO SCH (09:34)
[2017-09-22] MEDS: LACTULOSE SYRUP 20 GM/30 ML UDCUP PO SCH (09:35)
[2017-09-22] MEDS: DOCUSATE SODIUM 100 MG CAPSULE PO SCH (09:35)
[2017-09-22] MEDS: LUBIPROSTONE 24 MCG CAPSULE PO SCH (09:35)
--- NOTE | 2017-09-22 14:45 | PDOC DISCHARGE SUMMARY ---
General - Admit/Disc Date/PCP Admission Date/Primary Care Provider: 09/17/17 03:30 ANDREA HOPPER MD Discharge Date: 09/22/17 - Discharge Diagnosis (1) Pleural effusion Is this a current diagnosis for this admission?: Yes (2) Constipation due to opioid therapy Is this a current diagnosis for this admission?: Yes (3) Metastatic breast cancer Is this a current diagnosis for this admission?: Yes (4) Seizure Is this a current diagnosis for this admission?: Yes - Additional Information Resuscitation Status: Full Code Discharge Diet: As Tolerated, Regular Discharge Activity: Activity As Tolerated Prescriptions: Valproic Acid [Depakene] 500 mg PO BID #60 capsule Home Medications: Naloxone HCl [Narcan] 4 mg NASL PRN PRN 09/17/17 Oxycodone HCl 20 mg PO Q4HP PRN 09/17/17 Oxycodone HCl [Oxycontin] 40 mg PO Q12 09/17/17 Venlafaxine HCl ER [Effexor Xr 75 mg Cap.sr] 75 mg PO DAILY 09/17/17 Valproic Acid [Depakene] 500 mg PO BID #60 capsule 09/22/17 History of Present Illness History of Present Illness: Ms. Sanabria is a very pleasant but unfortunate 67 years old black female patient with a diagnosis of stage IV breast cancer with metastasis to the brain and lung. This morning I discussed the case with oncologist Dr. Moralez who requested hospitalist service to comanage the patient. Patient resting in bed comfortably she is not in pain or distress. The nurse in charge of her reports to me patient has episode of classical absence seizure. Hospital Course Hospital Course: This morning patient is resting in bed. He is not in pain or distress. She is awake alert oriented. She has been on Depakote 500 mg twice daily p.o. for the first time patient does not have seizures today. Patient requests discharge. Her vital signs are within normal limits and patient is stable enough to be discharged today and follow-up with Dr. Morales her primary oncologist. Physical Exam Vital Signs: Temp Pulse Resp BP Pulse Ox 97.8 F 92 17 115/81 99 09/22/17 10:38 09/22/17 10:38 09/22/17 10:38 09/22/17 10:38 09/22/17 10:38 Intake & Output 09/21/17 09/22/17 09/23/17 06:59 06:59 06:59 Intake Total 2892 2690 Output Total 3100 2150 Balance -208 540 Weight 77.8 kg 76.2 kg General appearance: PRESENT: no acute distress, well-developed, well-nourished Head exam: PRESENT: atraumatic, normocephalic Eye exam: PRESENT: conjunctiva pink, EOMI, PERRLA. ABSENT: scleral icterus Ear exam: PRESENT: normal external ear exam Mouth exam: PRESENT: moist, tongue midline Neck exam: ABSENT: carotid bruit, JVD, lymphadenopathy, thyromegaly Respiratory exam: PRESENT: clear to auscultation jose. ABSENT: rales, rhonchi, wheezes Cardiovascular exam: PRESENT: RRR. ABSENT: diastolic murmur, rubs, systolic murmur Pulses: PRESENT: normal dorsalis pedis pul Vascular exam: PRESENT: normal capillary refill GI/Abdominal exam: PRESENT: normal bowel sounds, soft. ABSENT: distended, guarding, mass, organolmegaly, rebound, tenderness Rectal exam: PRESENT: deferred Extremities exam: PRESENT: full ROM. ABSENT: calf tenderness, clubbing, pedal edema Neurological exam: PRESENT: alert, awake, oriented to person, oriented to place , oriented to time, oriented to situation, CN II-XII grossly intact. ABSENT: motor sensory deficit Psychiatric exam: PRESENT: appropriate affect, normal mood. ABSENT: homicidal ideation, suicidal ideation Skin exam: PRESENT: dry, intact, warm. ABSENT: cyanosis, rash Results Laboratory Results: 09/21/17 03:56 09/21/17 03:56 Impressions: Thoracentesis Ultrasound 09/17/17 00:00 IMPRESSION: SUCCESSFUL THORACENTESIS USING ULTRASOUND GUIDANCE. Chest X-Ray 09/19/17 00:00 IMPRESSION: Stable trace residual right pleural effusion post thoracentesis. Minimal right basilar atelectasis. No pneumothorax. Qualifiers - * PATEINT BEING DISCHARGED WITH ANY OF THE FOLLOWING DIAGNOSIS?: No
== END 2017-09-22 11:07 | disposition home or self-care (01) | DRG 598 ==
LOC: ER 22:21 → OBSVTOIN 09-17 03:30 → EH 09-17 03:30 → 2S 09-17 14:13 → 4W 09-17 16:41 → ICU 09-19 19:49
PROVIDERS: ADMIT Internal Medicine; ATTEND Internal Medicine
PROC: 0W993ZX Drainage of Right Pleural Cavity, Percutaneous Approach, Diagnostic (ICD-10-PCS; 2017-09-17)
PROC: 0H9T3ZX Drainage of Right Breast, Percutaneous Approach, Diagnostic (ICD-10-PCS; principal; 2017-09-19)
DX: C50.411 Malignant neoplasm of upper-outer quadrant of right female breast (principal); J91.0 Malignant pleural effusion; C79.31 Secondary malignant neoplasm of brain; F11.20 Opioid dependence, uncomplicated; C78.00 Secondary malignant neoplasm of unspecified lung; G40.409 Other generalized epilepsy and epileptic syndromes, not intractable, without status epilepticus; E86.0 Dehydration; G89.3 Neoplasm related pain (acute) (chronic); N64.89 Other specified disorders of breast; K59.03 Drug induced constipation; T40.2X5A Adverse effect of other opioids, initial encounter; K21.9 Gastro-esophageal reflux disease without esophagitis; M79.7 Fibromyalgia; G43.909 Migraine, unspecified, not intractable, without status migrainosus; Z90.11 Acquired absence of right breast and nipple; Z79.899 Other long term (current) drug therapy
CPT/HCPCS: 32555; 36415; 36591; 71045; 71046; 71275; 76641; 80048; 80053; 80202; 81001; 82565; 82803; 83605; 83615; 83690; 83735; 84703; 85025; 85610; 87040; 87070; 87075; 87205; 87804; 88305; 88341; 88342; 89050; 94640; 95819; 96361; 96365; 96367; 96375; 96376; 99285; J1165; J1170; J2060; J2270; J2405; J2543; J3370; J3490; J7030; J7060

== ENCOUNTER 2017-10-10 08:45 | Day surgery (SDC) | payer MEDICAID ==
--- NOTE | 2017-10-10 09:26 | RADIOLOGY REPORT (SQ) ---
EXAM DESCRIPTION: CHEST 2 VIEWS COMPLETED DATE/TIME: 10/10/2017 9:05 am REASON FOR STUDY: J90 PLEURAL EFFUSION, NOT ELSEWHERE CLASSIFIED COMPARISON: CT angio chest 09/17/2017 Right-sided ultrasound thoracentesis 09/17/2017 Chest films 09/17/2017, 09/19/2017. EXAM PARAMETERS: NUMBER OF VIEWS: two views TECHNIQUE: Digital Frontal and Lateral radiographic views of the chest acquired. RADIATION DOSE: NA LIMITATIONS: none FINDINGS: LUNGS AND PLEURA: Re-accumulation of a moderate right pleural effusion. This report was c alled to Dr. Ahn. There is right middle and lower lobe consolidation likely atelectasis. Pneumonia could not entirely be excluded. Left lung well inflated and clear. No left pleural effusion. No right or left pneumothorax MEDIASTINUM AND HILAR STRUCTURES: No masses or contour abnormalities. HEART AND VASCULAR STRUCTURES: Heart normal size. No evidence for failure. BONES: No acute findings. HARDWARE: Left-sided permanent central line tip superior vena cava. Clips right upper quadrant post cholecystectomy OTHER: No other significant finding. IMPRESSION: Re-accumulation of a moderate right pleural effusion. TECHNICAL DOCUMENTATION: JOB ID: [id number] [employer]- All Rights Reserved Reading location - IP/workstation name: [email or web address]
[2017-10-10] MEDS ORDERED: LIDOCAINE 1% INJ-PF (10 MG/ML) 30 ML SDV ONE (11:20)
[2017-10-10] MEDS ORDERED: OXYCODONE HCL IR 5 MG TABLET PO PRN (13:15)
--- NOTE | 2017-10-10 13:28 | RADIOLOGY REPORT (SQ) ---
EXAM DESCRIPTION: CHEST SINGLE VIEW COMPLETED DATE/TIME: 10/10/2017 12:19 pm REASON FOR STUDY: S/P RT THORACENTESIS COMPARISON: Thoracentesis today, thoracentesis 09/17/2017 Chest films 09/16/2017, 09/17/2017, 09/19/2017, 10/10/2017 EXAM PARAMETERS: NUMBER OF VIEWS: One view. TECHNIQUE: Single frontal radiographic view of the chest acquired. RADIATION DOSE: NA LIMITATIONS: None. FINDINGS: LUNGS AND PLEURA: This study is immediately post right-sided thoracentesis with removal of 900 mL of fluid from the right chest. There is still a persistent moderate right pleural effusion and right middle and lower lobe airspace disease, likely atelectasis. No right-sided pneumothorax. Left lung well inflated and free of focal infiltrates. No left pleural effusion. No left pneumothor ax. MEDIASTINUM AND HILAR STRUCTURES: No masses. Contour normal. HEART AND VASCULAR STRUCTURES: Heart normal in size. Normal vasculature. BONES: No acute findings. HARDWARE: Left permanent jugular central line tip superior vena cava OTHER: No other significant finding. IMPRESSION: Post right-sided thoracentesis with removal of 900 mL of fluid from the right chest. No pneumothorax. Moderate residual pleural effusion. TECHNICAL DOCUMENTATION: JOB ID: [id number] [employer]- All Rights Reserved Reading location - IP/workstation name: [email or web address]
--- NOTE | 2017-10-10 14:04 | RADIOLOGY REPORT (SQ) ---
EXAM DESCRIPTION: U/S THORACENTESIS WITH IMAGING COMPLETED DATE/TIME: 10/10/2017 11:58 am REASON FOR STUDY: PLEURAL EFFUSION J90 PLEURAL EFFUSION, NOT ELSEWHERE CLASSIFIED COMPARISON: Thoracentesis 09/17/2017 Chest films 10/10/2017, 09/19/2017, 09/17/2017 LIMITATIONS: None. PROCEDURE: Procedure, risks, benefit, and alternative explained to patient who then gave written con sent. The posterior right chest wall was marked using ultrasound guidance. A time-out was called fo r correct marking verification. Chest prepped and draped using sterile technique. Local anesthesia a chieved using 6 mL of 1% lidocaine injection. A 6fr Safe-T- Centesis set was introduced into the po sterior right pleural space. Fluid was aspirated. The catheter was removed and the entry site was c overed with sterile bandage. No immediate complications noted. No fluid was sent for testing. Images acquired during the procedure were stored on PACS. FINDINGS: ENTRY SITE: Right posterior chest FLUID VOLUME: 900 mL FLUID ANALYSIS: No OTHER: Fluid was withdrawn from the right pleural space until the patient reported comfortable breath ing. There is still a moderate amount of residual fluid present in the right chest. IMPRESSION: SUCCESSFUL THORACENTESIS USING ULTRASOUND GUIDANCE. COMMENT: Patient medication list reviewed: Yes- Quality ID# [id number]:Eligible professional attests to doc umenting in the medical record they obtained, updated, or reviewed the patient's current medications. TECHNICAL DOCUMENTATION: JOB ID: [id number] [email or web address]- All Rights Reserved Reading location - IP/workstation name: [email or web address]
--- NOTE | 2017-10-10 16:43 | RADIOLOGY REPORT (SQ) ---
EXAM DESCRIPTION: CHEST SINGLE VIEW COMPLETED DATE/TIME: 10/10/2017 2:37 pm REASON FOR STUDY: 2 HOURS S/P RT THORACENTESIS COMPARISON: 10/10/2017, 1227 hours EXAM PARAMETERS: NUMBER OF VIEWS: One view. TECHNIQUE: Single frontal radiographic view of the chest acquired. RADIATION DOSE: NA LIMITATIONS: None. FINDINGS: LUNGS AND PLEURA: No pneumothorax 2 hours post right thoracentesis. There is still a moderate right pleural effusion present with right middle and lower lobe airspace di sease likely atelectasis. Left lung well inflated and clear. MEDIASTINUM AND HILAR STRUCTURES: No masses. Contour normal. HEART AND VASCULAR STRUCTURES: Heart normal in size. Normal vasculature. BONES: No acute findings. HARDWARE: Unchanged left-sided permanent central line with the tip in the superior vena cava OTHER: No other significant finding. IMPRESSION: No pneumothorax 2 hours post right-sided thoracentesis. TECHNICAL DOCUMENTATION: JOB ID: [id number] [employer]- All Rights Reserved Reading location - IP/workstation name: [email or web address]
[2017-10-10 17:08] VITALS: BP 126/89
== END 2017-10-10 15:40 | disposition home or self-care (01) ==
LOC: RAD 08:45 → EDSTATUS 10:21 → RAD 15:40
PROVIDERS: ATTEND Surgery
DX: J90 Pleural effusion, not elsewhere classified (principal); C50.511 Malignant neoplasm of lower-outer quadrant of right female breast
CPT/HCPCS: 71046; 71045; 32555; J3490 ×2

== ENCOUNTER 2017-10-18 09:50 | Inpatient (IN) | payer MEDICAID ==
[2017-10-18] MEDS ORDERED: HYDROMORPHONE HCL INJ/PF 2 MG/ML AMPULE IV ONE (10:54)
[2017-10-18] MEDS ORDERED: ONDANSETRON HCL INJ/PF 4 MG/2 ML SDV IV ONE (10:54)
--- NOTE | 2017-10-18 10:55 | ER Document Report ---
ED Medical Screen (RME) - General Chief Complaint: Shortness Of Breath Stated Complaint: SHORTNESS OF BREATH/VOMITING Time Seen by Provider: 10/18/17 10:48 TRAVEL OUTSIDE OF THE [place] IN LAST 30 DAYS: No - HPI Notes: 10/18/17 10:48 RAPID MEDICAL EVALUATION DISCLOSURE I have seen this patient as part of a Rapid Medical Evaluation and, if applicable, placed any initially appropriate orders. The patient will be seen and fully evaluated, including a full history and physical exam, by a provider ( in Main ED or Fast Track) when a room becomes available. Pt. here for SOB last few days. History of metastatic breast cancer and pleural effusions. I talked to Dr. Lopez who wants CT abd/pelvis/chest with IV contrast. Also states pt. may need nausea and IV pain meds. 10/18/17 10:55 - Related Data Allergies/Adverse Reactions: Adhesive Bandage * [Adhesive Bandage] Allergy (Mild, Verified 10/18/17 09:52) Generalized rash adhesive tape [Adhesive Tape] Allergy (Mild, Verified 10/18/17 09:52) Generalized rash Past Medical History - Past Medical History Cardiac Medical History: Denies: Hx Coronary Artery Disease, Hx Heart Attack, Hx Hypertension Pulmonary Medical History: Reports: Hx Asthma - TEENAGER, Hx Pneumonia - recently d/c'd 05/10/17 Denies: Hx Bronchitis, Hx COPD, Hx Tuberculosis Neurological Medical History: Reports: Hx Migraine, Hx Seizures. Denies: Hx Cerebrovascular Accident Renal/ Medical History: Denies: Hx Peritoneal Dialysis Malignancy Medical History: Reports: Hx Brain Cancer, Hx Breast Cancer - right mastectomy, Hx Lung Cancer GI Medical History: Reports: Hx Gastroesophageal Reflux Disease. Denies: Hx Hiatal Hernia Musculoskeltal Medical History: Denies Hx Arthritis, Reports Hx Fibromyalgia Psychiatric Medical History: Denies: Hx Depression Infectious Medical History: Past Surgical History: Reports: Hx Section - x2, Hx Cholecystectomy, Hx Mastectomy - Right right mastectomy with axillary node dissection, Hx Orthopedic Surgery, Hx Tonsillectomy, Hx Tubal Ligation, Hx Vascular Surgery - Left chest wall port - Immunizations Hx Diphtheria, Pertussis, Tetanus Vaccination: Yes History of Influenza Vaccine for 03/2017 - 08/2017 Season: No Influenza Administration Date for 03/2017 - 08/2017 Season: 03/13/17 Physical Exam - Vital signs Vitals: Temp Pulse Resp BP Pulse Ox 98.1 F 95 28 H 121/76 96 10/18/17 10:06 10/18/17 10:06 10/18/17 10:06 10/18/17 10:06 10/18/17 10:06 Course - Vital Signs Vital signs: Temp Pulse Resp BP Pulse Ox 98.1 F 95 28 H 121/76 96 10/18/17 10:06 10/18/17 10:06 10/18/17 10:06 10/18/17 10:06 10/18/17 10:06
--- NOTE | 2017-10-18 11:05 | ER Document Report ---
ED General - General Chief Complaint: Shortness Of Breath Stated Complaint: SHORTNESS OF BREATH/VOMITING Time Seen by Provider: 10/18/17 10:48 Mode of Arrival: Carried Information source: Patient, DrDick Office Cannot obtain history due to: Altered mental status Notes: 37-year-old female stage IV breast cancer who had recent pleural effusion presents by private vehicle with concerns of altered mental status shortness of breath throwing up body aches. TRAVEL OUTSIDE OF THE [place] IN LAST 30 DAYS: No - HPI Onset: Last week Onset/Duration: Persistent Quality of pain: Achy Severity: Moderate Pain Level: 2 Associated symptoms: Body/muscle aches, Productive cough, Shortness of breath, Slow to respond Exacerbated by: Supine, Movement Relieved by: Denies Similar symptoms previously: Yes Recently seen / treated by doctor: Yes - Related Data Allergies/Adverse Reactions: Adhesive Bandage * [Adhesive Bandage] Allergy (Mild, Verified 10/18/17 09:52) Generalized rash adhesive tape [Adhesive Tape] Allergy (Mild, Verified 10/18/17 09:52) Generalized rash Past Medical History - Social History Smoking Status: Never Smoker Cigarette use (# per day): No Chew tobacco use (# tins/day): No Smoking Education Provided: No Frequency of alcohol use: None Drug Abuse: None Family History: DM Patient has suicidal ideation: No Patient has homicidal ideation: No - Past Medical History Cardiac Medical History: Denies: Hx Coronary Artery Disease, Hx Heart Attack, Hx Hypertension Pulmonary Medical History: Reports: Hx Asthma - TEENAGER, Hx Pneumonia - recently d/c'd 05/10/17 Denies: Hx Bronchitis, Hx COPD, Hx Tuberculosis Neurological Medical History: Reports: Hx Migraine, Hx Seizures. Denies: Hx Cerebrovascular Accident Renal/ Medical History: Denies: Hx Peritoneal Dialysis Malignancy Medical History: Reports: Hx Brain Cancer, Hx Breast Cancer - right mastectomy, Hx Lung Cancer GI Medical History: Reports: Hx Gastroesophageal Reflux Disease. Denies: Hx Hiatal Hernia Musculoskeltal Medical History: Denies Hx Arthritis, Reports Hx Fibromyalgia Psychiatric Medical History: Denies: Hx Depression Infectious Medical History: Past Surgical History: Reports: Hx Section - x2, Hx Cholecystectomy, Hx Mastectomy - Right right mastectomy with axillary node dissection, Hx Orthopedic Surgery, Hx Tonsillectomy, Hx Tubal Ligation, Hx Vascular Surgery - Left chest wall port - Immunizations Hx Diphtheria, Pertussis, Tetanus Vaccination: Yes Hx Pneumococcal Vaccination: 04/30/13 Review of Systems - Review of Systems Notes: REVIEW OF SYSTEMS: CONSTITUTIONAL : Denies fever, chills, or sweats. Denies recent illness. EENT: Denies eye, ear, throat, or mouth pain or symptoms. Denies nasal or sinus congestion or discharge. Denies throat, tongue, or mouth swelling or difficulty swallowing. CARDIOVASCULAR: Denies chest pain. Denies palpitations or racing or irregular heart beat. Denies ankle edema. RESPIRATORY: Admits to cough shortness of breath GASTROINTESTINAL: Denies abdominal pain or distention. Denies nausea, vomiting , or diarrhea. Denies blood in vomitus, stools, or per rectum. Denies black, tarry stools. Denies constipation. GENITOURINARY: Denies difficulty urinating, painful urination, burning, frequency, blood in urine, or discharge. FEMALE GENITOURINARY: Denies vaginal bleeding, heavy or abnormal periods, irregular periods. Denies vaginal discharge or odor. MUSCULOSKELETAL: Denies back or neck pain or stiffness. Denies joint pain or swelling. SKIN: Denies rash, lesions or sores. HEMATOLOGIC : Denies easy bruising or bleeding. LYMPHATIC: Denies swollen, enlarged glands. NEUROLOGICAL: Denies confusion or altered mental status. Denies passing out or loss of consciousness. Denies dizziness or lightheadedness. Denies headache. Denies weakness or paralysis or loss of use of either side. Denies problems with gait or speech. Denies sensory loss, numbness, or tingling. Denies seizures. PSYCHIATRIC: Denies anxiety or stress. Denies depression, suicidal ideation, or homicidal ideation. ALL OTHER SYSTEMS REVIEWED AND NEGATIVE. PHYSICAL EXAMINATION: GENERAL: Chronically ill-appearing female HEAD: Atraumatic, normocephalic. EYES: Pupils equal round and reactive to light, extraocular movements intact, conjunctiva are normal. ENT: Nares patent, oropharynx clear without exudates. Moist mucous membranes. NECK: Normal range of motion, supple without lymphadenopathy LUNGS: Decreased breath sounds on the right abnormality of breast on the right HEART: Regular rate and rhythm without murmurs ABDOMEN: Soft, nontender, nondistended abdomen. No guarding, no rebound. No masses appreciated. Female : deferred Musculoskeletal: Normal range of motion, no pitting or edema. No cyanosis. NEUROLOGICAL: Cranial nerves grossly intact. Normal speech, normal gait. Normal sensory, motor exams PSYCH: Normal mood, normal affect. SKIN: Warm, Dry, normal turgor, no rashes or lesions noted. Dictation was performed using [employer] voice recognition software Physical Exam - Vital signs Vitals: Temp Pulse Resp BP Pulse Ox 98.1 F 95 28 H 121/76 96 10/18/17 10:06 10/18/17 10:06 10/18/17 10:06 10/18/17 10:06 10/18/17 10:06 Course - Re-evaluation Re-evalutation: This is a chronically ill-appearing 37-year-old female unfortunate history of metastatic breast cancer patient was noted to be intermittently confused, CT of the head today noted no mass or shift with bleeding however there is a noted history of metastasis to the brain 10/18/17 13:07 moderate right sided effusion noted on the ct imaging, i spoke with dr navas and will admit ot e hospitalist service. 10/18/17 15:47 - Vital Signs Vital signs: Temp Pulse Resp BP Pulse Ox 98.1 F 95 16 114/82 97 10/18/17 10:06 10/18/17 10:06 10/18/17 13:01 10/18/17 13:01 10/18/17 13:01 - Laboratory Result Diagrams: 10/18/17 11:00 10/18/17 11:00 Laboratory results interpreted by me: 10/18/17 10/18/17 11:00 11:00 RBC 3.19 L Hgb 11.3 L Hct 32.7 L MCV 102 H MCH 35.5 H RDW 15.2 H BUN 5 L - Diagnostic Test Radiology reviewed: Image reviewed - Right-sided pleural effusion, Reports reviewed Discharge - Discharge Clinical Impression: Metastatic breast cancer, Pleural effusion Condition: Fair Disposition: ADMITTED INPATIENT Admitting Provider: Hospitalist Unit Admitted: Telemetry
[2017-10-18 11:20] LABS: VENOUS BLOOD HCO3 31.3 mmol/L (20-32); VENOUS BLOOD PCO2 53.3 mmHg (35-63); VENOUS BLOOD PH 7.39 (7.30-7.42)
[2017-10-18 11:26] LABS: ABSOLUTE BASOPHILS # (AUTO) 0.1 10^3/uL (0.0-0.2); ABSOLUTE MONOCYTES (AUTO) 0.8 10^3/uL (0.1-1.4); ABSOLUTE NEUT (AUTO) 4.4 10^3/uL (1.7-8.2); BASOPHILS % (AUTO) 1.1 % (0-2); EOSINOPHILS % (AUTO) 0.3 % (0-6); HEMATOCRIT 32.7 % (36.0-47.0); HEMOGLOBIN 11.3 g/dL (12.0-15.5); LYMPHOCYTES % (AUTO) 16.1 % (13-45); MEAN CORPUSCULAR HEMOGLOBIN 35.5 pg (27.0-33.4); MEAN CORPUSCULAR HGB CONC 34.6 g/dL (32.0-36.0); MEAN CORPUSCULAR VOLUME 102 fl (80-97); MONOCYTES % (AUTO) 12.1 % (3-13); PLATELET COUNT 289 10^3/uL (150-450); RED BLOOD COUNT 3.19 10^6/uL (3.72-5.28); RED CELL DISTRIBUTION WIDTH 15.2 % (11.5-14.0); SEGMENTED NEUTROPHILS % (AUTO) 70.4 % (42-78); TOTAL CELLS COUNTED % (AUTO) 100 %; WHITE BLOOD COUNT 6.3 10^3/uL (4.0-10.5)
[2017-10-18] MEDS ORDERED: IPRATROPIUM/ALBUTEROL 0.5-2.5 MG/3 ML AMPUL NEB ONE (11:26)
[2017-10-18 11:43] LABS: ALANINE AMINOTRANSFERASE 23 U/L (9-52); ALBUMIN 3.9 g/dL (3.5-5.0); ALKALINE PHOSPHATASE 63 U/L (38-126); ANION GAP 13 (5-19); ASPARTATE AMINO TRANSFERASE 30 U/L (14-36); BILIRUBIN,DIRECT 0.3 mg/dL (0.0-0.4); BILIRUBIN,TOTAL 0.4 mg/dL (0.2-1.3); BLOOD UREA NITROGEN 5 mg/dL (7-20); CALCIUM 9.5 mg/dL (8.4-10.2); CARBON DIOXIDE 30 mmol/L (22-30); CHLORIDE 98 mmol/L (98-107); GLUCOSE 82 mg/dL (75-110); POTASSIUM 3.6 mmol/L (3.6-5.0); SODIUM 141.2 mmol/L (137-145); TOTAL PROTEIN 7.3 g/dL (6.3-8.2)
--- NOTE | 2017-10-18 11:46 | RADIOLOGY REPORT (SQ) ---
EXAM DESCRIPTION: CT HEAD WITHOUT COMPLETED DATE/TIME: 10/18/2017 11:37 am REASON FOR STUDY: altered COMPARISON: None. TECHNIQUE: Axial images acquired through the brain without intravenous contrast. Images reviewed wi th bone, brain and subdural windows. Additional sagittal and coronal reconstructions were generated. Images stored on PACS. All CT scanners at this facility use dose modulation, iterative reconstruction, and/or weight based d osing when appropriate to reduce radiation dose to as low as reasonably achievable (ALARA). [facility]: Dose Right [facility]: CareDose [facility]: Dose Right [facility]: Teradose 4D [facility]: [place] RADIATION DOSE: mGy. LIMITATIONS: None. FINDINGS: VENTRICLES: Normal size and contour. CEREBRUM: No masses. No hemorrhage. No midline shift. No evidence for acute infarction. Normal gra y/white matter differentiation. No areas of low density in the white matter. CEREBELLUM: No masses. No hemorrhage. No alteration of density. No evidence for acute infarction. EXTRAAXIAL SPACES: No fluid collections. No masses. ORBITS AND GLOBE: No intra- or extraconal masses. Normal contour of globe without masses. CALVARIUM: No fracture. PARANASAL SINUSES: No fluid or mucosal thickening. SOFT TISSUES: No mass or hematoma. OTHER: No other significant finding. IMPRESSION: NORMAL BRAIN CT WITHOUT CONTRAST. EVIDENCE OF ACUTE STROKE: NO. COMMENT: Quality ID # [id number]: Final reports with documentation of one or more dose reduction techniques (e.g., Automated exposure control, adjustment of the mA and/or kV according to patient size, use of iterative reconstruction technique) TECHNICAL DOCUMENTATION: JOB ID: [id number] [employer]- All Rights Reserved Reading location - IP/workstation name: Unknown
--- NOTE | 2017-10-18 11:49 | RADIOLOGY REPORT (SQ) ---
EXAM DESCRIPTION: CT CHEST WITH COMPLETED DATE/TIME: 10/18/2017 11:37 am REASON FOR STUDY: SOB/breast CA with mets and pleural effusion COMPARISON: 09/17/2017 TECHNIQUE: CT scan of the chest performed using helical scanning technique with dynamic intravenous contrast injection. Images reviewed with lung, soft tissue and bone windows. Reconstructed coronal and sagittal MPR images reviewed. All images stored on PACS. All CT scanners at this facility use dose modulation, iterative reconstruction, and/or weight based d osing when appropriate to reduce radiation dose to as low as reasonably achievable (ALARA). [facility]: Dose Right [facility]: CareDose [facility]: Dose Right [facility]: Teradose 4D [facility]: [employer] CONTRAST TYPE AND DOSE: 100 cc Isovue 370- low osmolar. RENAL FUNCTION: GFR > 60. RADIATION DOSE: . LIMITATIONS: None. FINDINGS: LUNGS AND PLEURA: Recently described pulmonary nodules are unchanged. Moderate right pleu ral effusion and associated airspace disease not significantly changed. No evidence of empyema. HILAR AND MEDIASTINAL STRUCTURES: No identified masses or abnormal nodes. HEART AND VASCULAR STRUCTURES: No aneurysm or dissection. No central pulmonary emboli. No pericardi al effusion. HARDWARE: None in the chest. UPPER ABDOMEN: See separate report of the CT of the abdomen. THYROID AND OTHER SOFT TISSUES: Right mastectomy and breast reconstruction. BONES: No significant finding. OTHER: Left-sided port with tip in the SVC. IMPRESSION: Moderate right pleural effusion. Subcentimeter pulmonary nodules. No significant peterson e. TECHNICAL DOCUMENTATION: JOB ID: [id number] Quality ID # [id number]: Final reports with documentation of one or more dose reduction techniques (e.g., Au tomated exposure control, adjustment of the mA and/or kV according to patient size, use of iterative reconstruction technique) 2010 [employer]- All Rights Reserved Reading location - IP/workstation name: Unknown
--- NOTE | 2017-10-18 11:55 | RADIOLOGY REPORT (SQ) ---
EXAM DESCRIPTION: CT ABD/PELVIS WITH IV ONLY COMPLETED DATE/TIME: 10/18/2017 11:37 am REASON FOR STUDY: breast ca with mets COMPARISON: None. TECHNIQUE: CT scan of the abdomen and pelvis performed using helical scanning technique with dynamic intravenous contrast injection. No oral contrast. Images reviewed with lung, soft tissue, and bone windows. Reconstructed coronal and sagittal MPR images reviewed. Delayed images for evaluation of the urinary system also acquired. All images stored on PACS. All CT scanners at this facility use dose modulation, iterative reconstruction, and/or weight based d osing when appropriate to reduce radiation dose to as low as reasonably achievable (ALARA). [facility]: Dose Right [facility]: CareDose [facility]: Dose Right [facility]: Teradose 4D [facility]: [employer] CONTRAST TYPE AND DOSE: 100 cc Isovue 370- low osmolar. RENAL FUNCTION: GFR > 60. RADIATION DOSE: . LIMITATIONS: None. FINDINGS: LOWER CHEST: See separate report of the CT of the chest. LIVER: Normal size. No masses. No dilated ducts. SPLEEN: Normal size. No focal lesions. PANCREAS: No masses. No significant calcifications. No adjacent inflammation or peripancreatic fluid collections. Pancreatic duct not dilated. GALLBLADDER: Surgically absent. ADRENAL GLANDS: No significant masses or asymmetry. RIGHT KIDNEY AND URETER: No solid masses. No significant calcifications. No hydronephrosis or hyd roureter. LEFT KIDNEY AND URETER: No solid masses. No significant calcifications. No hydronephrosis or hydr oureter. AORTA AND VESSELS: No aneurysm. No dissection. Renal arteries, SMA, celiac without stenosis. RETROPERITONEUM: No retroperitoneal adenopathy, hemorrhage or masses. BOWEL AND PERITONEAL CAVITY: No masses or inflammatory changes. No free fluid or peritoneal masses. APPENDIX: Normal. PELVIS: 3.5 cm cyst right ovary. No free fluid. ABDOMINAL WALL: No masses. No hernias. BONES: No significant or acute findings. OTHER: No other significant finding. IMPRESSION: Right ovarian cyst. No evidence of metastatic disease. TECHNICAL DOCUMENTATION: JOB ID: [id number] Quality ID # [id number]: Final reports with documentation of one or more dose reduction techniques (e.g., Au tomated exposure control, adjustment of the mA and/or kV according to patient size, use of iterative reconstruction technique) 2010 [employer]- All Rights Reserved Reading location - IP/workstation name: Unknown
[2017-10-18 13:41] LABS: INTERNATIONAL RATION (INR) 1.07; PROTHROMBIN TIME 14.5 SEC (11.4-15.4)
--- NOTE | 2017-10-18 13:41 | EKG REPORT ---
SEVERITY:- BORDERLINE ECG - SINUS RHYTHM BORDERLINE T ABNORMALITIES, ANTERIOR LEADS : Confirmed by: Lakhwinder George MD 18-Oct-2017 13:41:19
[2017-10-18] MEDS ORDERED: LIDOCAINE 1% INJ-PF (10 MG/ML) 30 ML SDV ONE (14:13)
[2017-10-18] MEDS ORDERED: IPRATROPIUM/ALBUTEROL 0.5-2.5 MG/3 ML AMPUL NEB PRN (14:27)
--- NOTE | 2017-10-18 14:52 | PDOC H&P ---
History of Present Illness Admission Date/PCP: 10/18/17 13:41 Patient complains of: Short of breath and diffuse pain History of Present Illness: EFFIE LOUIS is a 37 year old female with metastatic breast cancer who has had recurrent right malignant pleural effusions. She saw Dr. Ahn today who sent her over to the emergency room. She reports progressive shortness of breath since her last thoracentesis 10/10/17. She is also complaining of uncontrolled diffuse pain. She denies fevers or chills, admits to nausea and vomiting, denies diarrhea. She is here accompanied by her child. Past Medical History Cardiac Medical History: Denies: Coronary Artery Disease, Myocardial Infarction, Hypertension Pulmonary Medical History: Reports: Asthma - TEENAGER, Pneumonia - recently d /c'd 05/10/17 Denies: Bronchitis, Chronic Obstructive Pulmonary Disease (COPD), Tuberculosis Neurological Medical History: Reports: Migraine, Seizures Malignancy Medical History: Reports: Brain Cancer - Metastatic, Breast Cancer - right mastectomy, Lung Cancer - Metastatic GI Medical History: Reports: Gastroesophageal Reflux Disease Denies: Hiatal Hernia Musculoskeltal Medical History: Reports: Fibromyalgia Denies: Arthritis Psychiatric Medical History: Denies: Depression Hematology: Denies: Anemia, Sickle Cell Disease Past Surgical History Past Surgical History: Reports: Amputation, Section - x2, Cholecystectomy, Mastectomy - Right right mastectomy with axillary node dissection, Orthopedic Surgery, Tonsillectomy, Tubal Ligation, Vascular Surgery - Left chest wall port Social History Information Source: [facility] Records Lives with: Family Smoking Status: Never Smoker Frequency of Alcohol Use: None Hx Recreational Drug Use: No Drugs: None Hx Prescription Drug Abuse: No Family History Family History: DM Parental Family History Reviewed: Yes Children Family History Reviewed: No Sibling(s) Family History Reviewed.: No Medication/Allergy Home Medications: Naloxone HCl [Narcan] 4 mg NASL PRN PRN 09/17/17 Oxycodone HCl 20 mg PO Q4HP PRN 09/17/17 Oxycodone HCl [Oxycontin] 40 mg PO Q12 09/17/17 Venlafaxine HCl ER [Effexor Xr 75 mg Cap.sr] 75 mg PO DAILY 09/17/17 Valproic Acid [Depakene] 500 mg PO BID #60 capsule 09/22/17 Allergies/Adverse Reactions: Adhesive Bandage * [Adhesive Bandage] Allergy (Mild, Verified 10/18/17 09:52) Generalized rash adhesive tape [Adhesive Tape] Allergy (Mild, Verified 10/18/17 09:52) Generalized rash Review of Systems All systems: reviewed and no additional remarkable complaints except as stated Physical Exam Vital Signs: Temp Pulse Resp BP Pulse Ox 98.1 F 95 16 114/82 97 10/18/17 10:06 10/18/17 10:06 10/18/17 13:01 10/18/17 13:01 10/18/17 13:01 General appearance: PRESENT: no acute distress, cooperative, other - Lethargic Respiratory exam: PRESENT: other - Almost absent breath sounds right side, just a few at the very top Cardiovascular exam: PRESENT: RRR GI/Abdominal exam: PRESENT: soft Extremities exam: ABSENT: other - No edema Neurological exam: PRESENT: awake Psychiatric exam: PRESENT: flat affect Skin exam: PRESENT: warm Results Impressions: Chest CT 10/18/17 10:52 IMPRESSION: Moderate right pleural effusion. Subcentimeter pulmonary nodules. No significant change. Abdomen/Pelvis CT 10/18/17 10:53 IMPRESSION: Right ovarian cyst. No evidence of metastatic disease. Head CT 10/18/17 11:01 IMPRESSION: NORMAL BRAIN CT WITHOUT CONTRAST. EVIDENCE OF ACUTE STROKE: NO. Assessment & Plan - Diagnosis (1) Malignant pleural effusion Is this a current diagnosis for this admission?: Yes Plan: Recurrent. Acutely thoracentesis. Given how rapidly came back I wonder if she needs pleurodesis. Consult oncology (2) Metastatic breast cancer Is this a current diagnosis for this admission?: Yes (3) Brain metastases Is this a current diagnosis for this admission?: Yes (4) Pain, neoplasm-related Is this a current diagnosis for this admission?: Yes Plan: Symptomatic treatment.
[2017-10-18] MEDS: HYDROMORPHONE HCL INJ/PF 2 MG/ML AMPULE IV PRN ×2 (15:24→19:41)
--- NOTE | 2017-10-18 15:37 | RADIOLOGY REPORT (SQ) ---
EXAM DESCRIPTION: CHEST SINGLE VIEW COMPLETED DATE/TIME: 10/18/2017 3:18 pm REASON FOR STUDY: POST THORA COMPARISON: Earlier the same day. NUMBER OF VIEWS: One view. TECHNIQUE: Single frontal radiographic image of the chest acquired. LIMITATIONS: None. FINDINGS: LUNGS AND PLEURA: Interval decrease in right pleural effusion. No pneumothorax. MEDIASTINUM AND HEART: Stable heart size and mediastinal structures. BONY STRUCTURES: No acute findings. HARDWARE: None. OTHER: No other significant finding. IMPRESSION: No pneumothorax. TECHNICAL DOCUMENTATION: JOB ID: [id number] Reading location - IP/workstation name: Unknown
--- NOTE | 2017-10-18 15:38 | RADIOLOGY REPORT (SQ) ---
EXAM DESCRIPTION: U/S THORACENTESIS WITH IMAGING COMPLETED DATE/TIME: 10/18/2017 3:17 pm REASON FOR STUDY: large effusion left sided COMPARISON: None. LIMITATIONS: None. PROCEDURE: Procedure, risks, benefit, and alternative explained to patient who then gave written con sent. The posterior right chest wall was marked using ultrasound guidance. A time-out was called fo r correct marking verification. Chest prepped and draped using sterile technique. Local anesthesia a chieved using 5 ml of 1% lidocaine injection. A 5fr needle/catheter set was introduced into the post erior right pleural space. Fluid was aspirated. The catheter was removed and the entry site was cov ered with sterile bandage. No immediate complications noted. Images acquired during the procedure were stored on PACS. FINDINGS: ENTRY SITE: Posterior right thorax. FLUID VOLUME: 1300 cc FLUID ANALYSIS: Serosanguineous. OTHER: Fluid sent to the lab for testing. IMPRESSION: SUCCESSFUL THORACENTESIS USING ULTRASOUND GUIDANCE. COMMENT: Patient medication list reviewed: Yes- Quality ID# [id number]:Eligible professional attests to doc umenting in the medical record they obtained, updated, or reviewed the patient's current medications. TECHNICAL DOCUMENTATION: JOB ID: [id number] [employer]- All Rights Reserved Reading location - IP/workstation name: Unknown
[2017-10-18] MEDS: VALPROATE SODIUM SYRUP 250 MG/5 ML UDCUP PO SCH (17:03)
[2017-10-18] MEDS: OXYCODONE HCL IR 5 MG TABLET PO PRN (17:03)
--- NOTE | 2017-10-18 17:45 | RADIOLOGY REPORT (SQ) ---
EXAM DESCRIPTION: CHEST SINGLE VIEW COMPLETED DATE/TIME: 10/18/2017 5:36 pm REASON FOR STUDY: 2 HR POST THORA COMPARISON: 10/18/2017 EXAM PARAMETERS: NUMBER OF VIEWS: One view. TECHNIQUE: Single frontal radiographic view of the chest acquired. RADIATION DOSE: NA LIMITATIONS: None. FINDINGS: LUNGS AND PLEURA: Moderate right pleural effusion. There is no pneumothorax. No pulmonar y infiltrate is seen. MEDIASTINUM AND HILAR STRUCTURES: No masses. Contour normal. HEART AND VASCULAR STRUCTURES: Heart normal in size. Normal vasculature. BONES: No acute findings. HARDWARE: Injection port on the left. OTHER: No other significant finding. IMPRESSION: Right pleural effusion. No pneumothorax. TECHNICAL DOCUMENTATION: JOB ID: [id number] [employer]- All Rights Reserved Reading location - IP/workstation name: [email or web address]
[2017-10-18] MEDS ORDERED: (PENDING PHARMACY ID) (Valproic Acid [Depakene] 500 MG) PO SCH (18:00)
[2017-10-18] MEDS: OXYCODONE HCL SR 40 MG TABLET PO SCH (21:10)
[2017-10-19] MEDS: HYDROMORPHONE HCL INJ/PF 2 MG/ML AMPULE IV PRN ×5 (02:25→20:08)
[2017-10-19] MEDS: ONDANSETRON HCL INJ/PF 4 MG/2 ML SDV IV PRN ×3 (02:26→09:34)
[2017-10-19] MEDS: POLYETHYLENE GLYCOL 3350 POWDER 17 GM/1 PACKET PO SCH (08:48)
[2017-10-19] MEDS: VENLAFAXINE HCL 75 MG CAP.SR.24H PO SCH (09:33)
[2017-10-19] MEDS: VALPROATE SODIUM SYRUP 250 MG/5 ML UDCUP PO SCH ×2 (09:34→18:34)
[2017-10-19] MEDS: OXYCODONE HCL SR 40 MG TABLET PO SCH ×2 (09:34→21:24)
[2017-10-19] MEDS ORDERED: LORAZEPAM INJ 2 MG/1 ML VIAL IV PRN (11:23)
--- NOTE | 2017-10-19 12:10 | PDOC CONSULTATION ---
Consultation Consult Date: 10/19/17 Attending physician:: AMANDA REIS Consult reason:: Stage IV breast ca, recurrent R malignant pleural effusion, N/V , weakness History of Present Illness Admission Date/PCP: 10/18/17 13:41 Patient complains of: Severe SOB/N/V, stage IV breast ca History of Present Illness: EFFIE LOUIS is a 37 year old female with known history of stage IV breast cancer, recurrent left pleural effusion, first noted about 1 month ago, at that time she had 1 L from thoracentesis, positive malignant cells noted, ER positive , plan on systemic chemotherapy initiation on clinical trial, restaging studies were pending for that. However 24 hours prior to admission she began having severe shortness of breath nausea and vomiting, was found to have large recurrent left pleural effusion, was admitted for thoracentesis which was done with 1.3 L out, as well as nausea and pain control. She is doing a bit better this morning. Restaging imaging was done, CT of the chest abdomen pelvis indicates only the left pleural effusion and pulmonary nodules which were known , and overall stable disease. There is no disease in the abdomen. However she does have history of brain metastasis as well, she was appropriately treated with whole brain radiation now about 6 months ago, with complete response noted on previous imaging, brain MRI is pending and supposed to happen at 1:30pm today. Past Medical History Cardiac Medical History: Denies: Coronary Artery Disease, Myocardial Infarction, Hypertension Pulmonary Medical History: Reports: Asthma - TEENAGER, Pneumonia - recently d /c'd 05/10/17 Denies: Bronchitis, Chronic Obstructive Pulmonary Disease (COPD), Tuberculosis Neurological Medical History: Reports: Migraine, Seizures Malignancy Medical History: Reports: Brain Cancer, Breast Cancer - right mastectomy, Lung Cancer GI Medical History: Reports: Gastroesophageal Reflux Disease Denies: Hiatal Hernia Musculoskeltal Medical History: Reports: Fibromyalgia Denies: Arthritis Psychiatric Medical History: Denies: Depression Hematology: Denies: Anemia, Sickle Cell Disease Past Surgical History Past Surgical History: Reports: Amputation, Section - x2, Cholecystectomy, Mastectomy - Right right mastectomy with axillary node dissection, Orthopedic Surgery, Tonsillectomy, Tubal Ligation, Vascular Surgery - Left chest wall port Social History Lives with: Family Smoking Status: Never Smoker Frequency of Alcohol Use: None Hx Recreational Drug Use: No Drugs: None Hx Prescription Drug Abuse: No - Advance Directive Resuscitation Status: Full Code Family History Family History: DM Parental Family History Reviewed: Yes Children Family History Reviewed: Yes Sibling(s) Family History Reviewed.: Yes Medication/Allergy Home Medications: Naloxone HCl [Narcan] 4 mg NASL PRN PRN 09/17/17 Oxycodone HCl 20 mg PO Q4HP PRN 09/17/17 Oxycodone HCl [Oxycontin] 40 mg PO Q12 09/17/17 Venlafaxine HCl ER [Effexor Xr 75 mg Cap.sr] 75 mg PO DAILY 09/17/17 Valproic Acid [Depakene] 500 mg PO BID #60 capsule 09/22/17 Albuterol Sulfate [Ventolin 0.083% Neb 2.5 mg/3 ml Ampul] 1 vial NEB Q4 Esomeprazole Magnesium [Nexium 24Hr] 20 mg PO DAILY 10/18/17 Hydrocortisone Acetate [Anucort-Hc] 25 mg RC BID 10/18/17 Allergies/Adverse Reactions: Adhesive Bandage * [Adhesive Bandage] Allergy (Mild, Verified 10/18/17 09:52) Generalized rash adhesive tape [Adhesive Tape] Allergy (Mild, Verified 10/18/17 09:52) Generalized rash Review of Systems Constitutional: ABSENT: chills, fever(s), headache(s), weight gain, weight loss Eyes: ABSENT: visual disturbances Ears: ABSENT: hearing changes Cardiovascular: ABSENT: chest pain, dyspnea on exertion, edema, orthropnea, palpitations Respiratory: ABSENT: cough, hemoptysis Gastrointestinal: ABSENT: abdominal pain, constipation, diarrhea, hematemesis, hematochezia, nausea, vomiting Genitourinary: ABSENT: dysuria, hematuria Musculoskeletal: ABSENT: joint swelling Integumentary: ABSENT: rash, wounds Neurological: ABSENT: abnormal gait, abnormal speech, confusion, dizziness, focal weakness, syncope Psychiatric: ABSENT: anxiety, depression, homidical ideation, suicidal ideation Endocrine: ABSENT: cold intolerance, heat intolerance, polydipsia, polyuria Hematologic/Lymphatic: ABSENT: easy bleeding, easy bruising Physical Exam Vital Signs: Temp Pulse Resp BP Pulse Ox 97.6 F 60 18 109/67 94 10/19/17 07:49 10/19/17 07:49 10/19/17 07:49 10/19/17 07:49 10/19/17 07:49 Intake & Output 10/18/17 10/19/17 10/20/17 06:59 06:59 06:59 Intake Total 500 Balance 500 Weight 72.5 kg Results Impressions: Chest CT 10/18/17 10:52 IMPRESSION: Moderate right pleural effusion. Subcentimeter pulmonary nodules. No significant change. Abdomen/Pelvis CT 10/18/17 10:53 IMPRESSION: Right ovarian cyst. No evidence of metastatic disease. Head CT 10/18/17 11:01 IMPRESSION: NORMAL BRAIN CT WITHOUT CONTRAST. EVIDENCE OF ACUTE STROKE: NO. Thoracentesis Ultrasound 10/18/17 13:00 IMPRESSION: SUCCESSFUL THORACENTESIS USING ULTRASOUND GUIDANCE. Chest X-Ray 10/18/17 17:15 IMPRESSION: Right pleural effusion. No pneumothorax. Status: Image reviewed by me Assessment & Plan - Diagnosis (1) Malignant pleural effusion Is this a current diagnosis for this admission?: Yes Plan: Recurrent malignant pleural effusion, I have discussed with the patient about Pleurx catheter placement, I consulted general surgery for this, they are planning on doing the procedure tomorrow most likely versus Saturday. (2) Metastatic breast cancer Is this a current diagnosis for this admission?: Yes Plan: Plan for systemic chemotherapy as outpatient on clinical trial, will follow up completion of restaging with bone scan as well as MRI of the brain. (3) Brain metastases Is this a current diagnosis for this admission?: Yes Plan: Plan for restaging MRI, this is pending. (4) Pain, neoplasm-related Is this a current diagnosis for this admission?: Yes Plan: Patient continued on Dilaudid IV, also on home medications of oral pain medications. This will continue. - Time Time Spent: Greater than 70 Minutes - Inpatient Certification Based on my medical assessment, after consideration of the patient's comorbidities, presenting symptoms, or acuity I expect that the services needed warrant INPATIENT care.: Yes I certify that my determination is in accordance with my understanding of Medicare's requirements for reasonable and necessary INPATIENT services [42 CFR 412.3e].: Yes Medical Necessity: Need For Continuous Telemetry Monitoring, Need for Pain Control, Need for Surgery, Risk of Complication if Not Cared For in Hospital
--- NOTE | 2017-10-19 12:24 | RADIOLOGY REPORT (SQ) ---
EXAM DESCRIPTION: CHEST SINGLE VIEW COMPLETED DATE/TIME: 10/19/2017 12:11 pm REASON FOR STUDY: pleural effusion COMPARISON: 10/18/2017 EXAM PARAMETERS: NUMBER OF VIEWS: One view. TECHNIQUE: Single frontal radiographic view of the chest acquired. RADIATION DOSE: NA LIMITATIONS: None. FINDINGS: LUNGS AND PLEURA: Persistent right pleural effusion. No pneumothorax. Left lung clear. MEDIASTINUM AND HILAR STRUCTURES: No masses. Contour normal. HEART AND VASCULAR STRUCTURES: Heart normal in size. Normal vasculature. BONES: No acute findings. HARDWARE: Venous access catheter unchanged. OTHER: No other significant finding. IMPRESSION: Persistent right pleural effusion without significant radiographic change. No pneumotho rax. TECHNICAL DOCUMENTATION: JOB ID: [id number] [employer]- All Rights Reserved Reading location - IP/workstation name: [email or web address]
[2017-10-19] MEDS ORDERED: DEXTROSE 40% GEL 15 GM TUBE PO PRN ×2 (15:13)
[2017-10-19] MEDS ORDERED: DEXTROSE 50%-WATER 25 GM/50 ML DISP.SYRIN IV PRN ×2 (15:13)
[2017-10-19] MEDS ORDERED: GLUCAGON,HUMAN RECOMB 1 MG INJ SUBCUT PRN (15:13)
--- NOTE | 2017-10-19 15:39 | PDOC CONSULTATION ---
Consultation Consult Date: 10/19/17 Consult reason:: Recurrent pleural effusion History of Present Illness Admission Date/PCP: 10/18/17 13:41 Patient complains of: Chest pain and shortness of breath History of Present Illness: EFFIE LOUIS is a 37 year old female with stage IV breast cancer. She has a recurrent pleural effusion on the right. She has undergone thoracentesis multiple times in the recent past. The effusion was most recently tapped yesterday. Approximately 1300 cc of serous fluid was removed. The patient is in need of a permanent solution for her recurrent pleural effusion. The patient also reports malaise and fatigue. She denies abdominal pain, nausea, vomiting, melena, hematochezia, hematemesis. Past Medical History Cardiac Medical History: Denies: Coronary Artery Disease, Myocardial Infarction, Hypertension Pulmonary Medical History: Reports: Asthma - TEENAGER, Pneumonia - recently d /c'd 05/10/17 Denies: Bronchitis, Chronic Obstructive Pulmonary Disease (COPD), Tuberculosis Neurological Medical History: Reports: Migraine, Seizures Malignancy Medical History: Reports: Brain Cancer, Breast Cancer - right mastectomy, Lung Cancer GI Medical History: Reports: Gastroesophageal Reflux Disease Denies: Hiatal Hernia Musculoskeltal Medical History: Reports: Fibromyalgia Denies: Arthritis Psychiatric Medical History: Denies: Depression Hematology: Denies: Anemia, Sickle Cell Disease Past Surgical History Past Surgical History: Reports: Amputation, Section - x2, Cholecystectomy, Mastectomy - Right right mastectomy with axillary node dissection, Orthopedic Surgery, Tonsillectomy, Tubal Ligation, Vascular Surgery - Left chest wall port Social History Information Source: Patient Lives with: Family Smoking Status: Never Smoker Frequency of Alcohol Use: None Hx Recreational Drug Use: No Drugs: None Hx Prescription Drug Abuse: No - Advance Directive Resuscitation Status: Full Code Family History Family History: DM Parental Family History Reviewed: Yes Children Family History Reviewed: Yes Sibling(s) Family History Reviewed.: Yes Medication/Allergy Home Medications: Naloxone HCl [Narcan] 4 mg NASL PRN PRN 09/17/17 Oxycodone HCl 20 mg PO Q4HP PRN 09/17/17 Oxycodone HCl [Oxycontin] 40 mg PO Q12 09/17/17 Venlafaxine HCl ER [Effexor Xr 75 mg Cap.sr] 75 mg PO DAILY 09/17/17 Valproic Acid [Depakene] 500 mg PO BID #60 capsule 09/22/17 Albuterol Sulfate [Ventolin 0.083% Neb 2.5 mg/3 ml Ampul] 1 vial NEB Q4 Esomeprazole Magnesium [Nexium 24Hr] 20 mg PO DAILY 10/18/17 Hydrocortisone Acetate [Anucort-Hc] 25 mg RC BID 10/18/17 Allergies/Adverse Reactions: Adhesive Bandage * [Adhesive Bandage] Allergy (Mild, Verified 10/18/17 09:52) Generalized rash adhesive tape [Adhesive Tape] Allergy (Mild, Verified 10/18/17 09:52) Generalized rash Review of Systems Constitutional: PRESENT: anorexia, fatigue, weakness. ABSENT: fever(s) Eyes: ABSENT: visual disturbances Ears: ABSENT: hearing changes Nose, Mouth, and Throat: ABSENT: sore throat Cardiovascular: ABSENT: palpitations Respiratory: PRESENT: cough, dyspnea Gastrointestinal: PRESENT: constipation. ABSENT: abdominal pain Genitourinary: ABSENT: dysuria Musculoskeletal: ABSENT: joint swelling Integumentary: ABSENT: erythema, rash Neurological: ABSENT: abnormal gait, abnormal movements, abnormal speech, confusion Psychiatric: PRESENT: anxiety. ABSENT: hallucinations Endocrine: ABSENT: cold intolerance, heat intolerance Hematologic/Lymphatic: ABSENT: lymphadenopathy Physical Exam Vital Signs: Temp Pulse Resp BP Pulse Ox 97.5 F 57 L 18 111/72 100 10/19/17 11:30 10/19/17 14:00 10/19/17 13:48 10/19/17 11:30 10/19/17 13:48 Intake & Output 10/18/17 10/19/17 10/20/17 06:59 06:59 06:59 Intake Total 500 838 Output Total 300 Balance 500 538 Weight 72.5 kg General appearance: PRESENT: no acute distress Head exam: PRESENT: atraumatic, normocephalic Eye exam: PRESENT: EOMI, PERRLA. ABSENT: conjunctival injection, scleral icterus Mouth exam: PRESENT: moist, neck supple Teeth exam: ABSENT: poor dentation Neck exam: ABSENT: lymphadenopathy, meningismus, tenderness, thyromegaly, tracheal deviation Respiratory exam: PRESENT: crackles, unlabored. ABSENT: accessory muscle use, chest wall tenderness, tachypnea Cardiovascular exam: PRESENT: RRR Pulses: PRESENT: normal radial pulses Vascular exam: PRESENT: normal capillary refill. ABSENT: pallor GI/Abdominal exam: PRESENT: soft. ABSENT: distended, guarding, tenderness Rectal exam: PRESENT: deferred Extremities exam: ABSENT: tenderness Musculoskeletal exam: ABSENT: tenderness Neurological exam: PRESENT: alert, awake, oriented to person, oriented to place , oriented to time, oriented to situation Psychiatric exam: PRESENT: anxious. ABSENT: agitated Skin exam: ABSENT: cyanosis, erythema, jaundice, pallor Results Impressions: Chest CT 10/18/17 10:52 IMPRESSION: Moderate right pleural effusion. Subcentimeter pulmonary nodules. No significant change. Abdomen/Pelvis CT 10/18/17 10:53 IMPRESSION: Right ovarian cyst. No evidence of metastatic disease. Head CT 10/18/17 11:01 IMPRESSION: NORMAL BRAIN CT WITHOUT CONTRAST. EVIDENCE OF ACUTE STROKE: NO. Thoracentesis Ultrasound 10/18/17 13:00 IMPRESSION: SUCCESSFUL THORACENTESIS USING ULTRASOUND GUIDANCE. Chest X-Ray 10/19/17 00:00 IMPRESSION: Persistent right pleural effusion without significant radiographic change. No pneumothorax. Assessment & Plan - Diagnosis (1) Malignant pleural effusion Is this a current diagnosis for this admission?: Yes (2) Metastatic breast cancer Is this a current diagnosis for this admission?: Yes - Plan Summary Plan Summary: This is a 37-year-old female with stage IV breast cancer and a malignant pleural effusion. She has undergone multiple thoracentesis procedures to remove the fluid. The patient is now requesting a more permanent solution. Have offered her a Pleurx catheter, so that she may drain her fluid at home. The patient has agreed to this. Risks/benefits discussed, informed consent obtained, and all questions answered.
--- NOTE | 2017-10-19 15:58 | PDOC PROGRESS REPORT ---
Subjective Progress Note for:: 10/19/17 Subjective:: Feeling much better. Complaining of pain in her left flank Reason For Visit: MALIGNANT EFFUSION,MET BREAST CA Physical Exam Vital Signs: Temp Pulse Resp BP Pulse Ox 97.5 F 57 L 18 111/72 100 10/19/17 11:30 10/19/17 14:00 10/19/17 13:48 10/19/17 11:30 10/19/17 13:48 Intake & Output 10/18/17 10/19/17 10/20/17 05:59 05:59 05:59 Intake Total 1338 Output Total 300 Balance 1038 Weight 159 lb 13.362 oz General appearance: PRESENT: no acute distress Respiratory exam: PRESENT: clear to auscultation jose Cardiovascular exam: PRESENT: RRR GI/Abdominal exam: PRESENT: soft Extremities exam: ABSENT: +1 edema Musculoskeletal exam: PRESENT: normal inspection Neurological exam: PRESENT: alert Psychiatric exam: PRESENT: appropriate affect Skin exam: PRESENT: warm Results Impressions: Chest CT 10/18/17 10:52 IMPRESSION: Moderate right pleural effusion. Subcentimeter pulmonary nodules. No significant change. Abdomen/Pelvis CT 10/18/17 10:53 IMPRESSION: Right ovarian cyst. No evidence of metastatic disease. Head CT 10/18/17 11:01 IMPRESSION: NORMAL BRAIN CT WITHOUT CONTRAST. EVIDENCE OF ACUTE STROKE: NO. Thoracentesis Ultrasound 10/18/17 13:00 IMPRESSION: SUCCESSFUL THORACENTESIS USING ULTRASOUND GUIDANCE. Chest X-Ray 10/19/17 00:00 IMPRESSION: Persistent right pleural effusion without significant radiographic change. No pneumothorax. Assessment & Plan - Diagnosis (1) Malignant pleural effusion Is this a current diagnosis for this admission?: Yes Plan: Pleurx catheter planned. Timing per surgery (2) Metastatic breast cancer Is this a current diagnosis for this admission?: Yes Plan: Ongoing management per oncology (3) Brain metastases Is this a current diagnosis for this admission?: Yes (4) Pain, neoplasm-related Is this a current diagnosis for this admission?: Yes Plan: Symptomatic treatment.
[2017-10-19] MEDS ORDERED: LORAZEPAM INJ 2 MG/1 ML VIAL IV ONE (20:00)
--- NOTE | 2017-10-19 21:50 | RADIOLOGY REPORT (SQ) ---
EXAM DESCRIPTION: MRI HEAD COMBO COMPLETED DATE/TIME: 10/19/2017 9:07 pm REASON FOR STUDY: BREAST CANCER, SECONDARY METS OF BRAIN? COMPARISON: 07/03/2017, 03/14/2017 TECHNIQUE: Multiplanar imaging includes noncontrasted T1, T2, FLAIR, diffusion with ADC map and post gadolinium contrast T1 sequences. MP rage 3D acquisition. Heme avid sequence. Images stored on PAC S. CONTRAST TYPE AND DOSE: 15 mL Multihance. RENAL FUNCTION: None required. The patient is less than 50 years old. LIMITATIONS: Motion artifact. FINDINGS: ANATOMY: No anomalies. Normal vascular flow voids. Pituitary fossa normal. CSF SPACES: Normal in size and contour. No hemorrhage. CEREBRUM: Sulci and gyri normal in size and contour. Normal white matter signal on FLAIR imaging. No evidence of hemorrhage, mass, or extraaxial fluid collection. No abnormal enhancement post contrast. POSTERIOR FOSSA: No signal alteration. No hemorrhage. No edema, masses, or mass effect. Internal samantha tory canals, cerebellopontine angles, mastoids normal. No enhancing lesions. No abnormal enhancement post contrast. DIFFUSION IMAGING: Negative for acute or subacute infarction. ORBITS: No masses. Globes normal. PARANASAL SINUSES: No fluid levels. Mucosa normal. OTHER: No other significant finding. IMPRESSION: NORMAL MRI OF THE BRAIN WITHOUT AND WITH INTRAVENOUS GADOLINIUM CONTRAST. EVIDENCE OF ACUTE STROKE: NO. TECHNICAL DOCUMENTATION: JOB ID: [id number] [employer]- All Rights Reserved Reading location - IP/workstation name: [email or web address]
[2017-10-20 06:53] LABS: ANION GAP 13 (5-19); BLOOD UREA NITROGEN 3 mg/dL (7-20); CALCIUM 9.4 mg/dL (8.4-10.2); CARBON DIOXIDE 32 mmol/L (22-30); CHLORIDE 97 mmol/L (98-107); GLUCOSE 103 mg/dL (75-110); POTASSIUM 3.7 mmol/L (3.6-5.0); SODIUM 141.5 mmol/L (137-145)
--- NOTE | 2017-10-20 08:38 | PDOC PROGRESS REPORT ---
Subjective Progress Note for:: 10/20/17 Subjective:: This is a 37 year old female with stage IV breast cancer. She has a recurrent pleural effusion on the right. She has undergone thoracentesis multiple times in the recent past. The patient is in need of a more permanent solution for her recurrent pleural effusion. The patient also reports malaise and fatigue. She denies abdominal pain, nausea, vomiting, melena, hematochezia, hematemesis. Reason For Visit: MALIGNANT EFFUSION,MET BREAST CA Physical Exam Vital Signs: Temp Pulse Resp BP Pulse Ox 97.7 F 82 16 123/78 100 10/20/17 04:07 10/20/17 07:00 10/20/17 04:07 10/20/17 04:07 10/20/17 04:07 Intake & Output 10/19/17 10/20/17 10/21/17 06:59 06:59 06:59 Intake Total 500 1158 Output Total 300 Balance 500 858 Weight 72.5 kg General appearance: PRESENT: no acute distress Head exam: PRESENT: atraumatic, normocephalic Eye exam: PRESENT: EOMI, PERRLA Mouth exam: PRESENT: neck supple Teeth exam: ABSENT: poor dentation Neck exam: ABSENT: tenderness, thyromegaly, tracheal deviation Respiratory exam: PRESENT: crackles, decreased breath sounds Cardiovascular exam: PRESENT: RRR Pulses: PRESENT: normal radial pulses Vascular exam: PRESENT: normal capillary refill. ABSENT: pallor GI/Abdominal exam: ABSENT: distended, guarding, rebound, tenderness Rectal exam: PRESENT: deferred Extremities exam: ABSENT: tenderness Musculoskeletal exam: ABSENT: tenderness Neurological exam: PRESENT: alert, awake, oriented to person, oriented to place , oriented to time, CN II-XII grossly intact. ABSENT: motor sensory deficit Psychiatric exam: ABSENT: agitated, anxious Skin exam: ABSENT: cyanosis, erythema, jaundice Results Laboratory Results: 10/20/17 05:38 10/20/17 05:38 Sodium 141.5 Potassium 3.7 Chloride 97 L Carbon Dioxide 32 H Anion Gap 13 BUN 3 L Creatinine 0.63 Est GFR ( Amer) > 60 Est GFR (Non-Af Amer) > 60 Glucose 103 Calcium 9.4 Impressions: Chest CT 10/18/17 10:52 IMPRESSION: Moderate right pleural effusion. Subcentimeter pulmonary nodules. No significant change. Abdomen/Pelvis CT 10/18/17 10:53 IMPRESSION: Right ovarian cyst. No evidence of metastatic disease. Head CT 10/18/17 11:01 IMPRESSION: NORMAL BRAIN CT WITHOUT CONTRAST. EVIDENCE OF ACUTE STROKE: NO. Thoracentesis Ultrasound 10/18/17 13:00 IMPRESSION: SUCCESSFUL THORACENTESIS USING ULTRASOUND GUIDANCE. Chest X-Ray 10/19/17 00:00 IMPRESSION: Persistent right pleural effusion without significant radiographic change. No pneumothorax. Head MRI 10/19/17 00:00 IMPRESSION: NORMAL MRI OF THE BRAIN WITHOUT AND WITH INTRAVENOUS GADOLINIUM CONTRAST. EVIDENCE OF ACUTE STROKE: NO. Assessment & Plan - Diagnosis (1) Malignant pleural effusion Is this a current diagnosis for this admission?: Yes (2) Metastatic breast cancer Is this a current diagnosis for this admission?: Yes - Plan Summary Plan Summary: This is a 37-year-old female in need of a pleural drainage catheter for a malignant pleural effusion. I will take her to the OR today for placement of the catheter. cargo and ramp services manager has been consulted to arrange home health for management and supplies. Risks/benefits discussed, informed consent obtained, and all questions answered.
[2017-10-20] MEDS ORDERED: MIDAZOLAM 2 MG/2 ML INJ ONE (08:44)
[2017-10-20] MEDS ORDERED: PROPOFOL INJ 200 MG/20 ML VIAL IV ONE (08:44)
[2017-10-20] MEDS ORDERED: FENTANYL CITRATE INJ/PF 100 MCG/2 ML AMPUL ONE ×2 (08:44→08:45)
[2017-10-20] MEDS ORDERED: FENTANYL CITRATE INJ/PF 100 MCG/2 ML AMPUL IV PRN ×3 (09:09)
[2017-10-20] MEDS ORDERED: PROMETHAZINE HCL INJ 25 MG/1 ML VIAL IV PRN ×2 (09:09)
[2017-10-20] MEDS ORDERED: MORPHINE SULFATE 10 MG/ML INJ IV PRN (09:09)
[2017-10-20] MEDS ORDERED: DIPHENHYDRAMINE HCL 50 MG/ML VIAL IV PRN (09:09)
[2017-10-20] MEDS: HYDROMORPHONE HCL INJ/PF 2 MG/ML AMPULE IV PRN ×4 (10:15→21:10)
[2017-10-20] MEDS ORDERED: HYDROMORPHONE HCL INJ/PF 2 MG/ML AMPULE ONE (10:18)
[2017-10-20] MEDS ORDERED: MORPHINE SULFATE 10 MG/ML INJ ONE (10:31)
--- NOTE | 2017-10-20 11:33 | PDOC PROGRESS REPORT ---
Subjective Progress Note for:: 10/20/17 Subjective:: She is down for Pleurx catheter placement today, I reviewed MRI of the brain and there are still no lesions, so she maintains a complete response in the brain at present. Reason For Visit: MALIGNANT EFFUSION,MET BREAST CA Physical Exam Vital Signs: Temp Pulse Resp BP Pulse Ox 97.7 F 82 16 123/78 100 10/20/17 04:07 10/20/17 07:00 10/20/17 04:07 10/20/17 04:07 10/20/17 04:07 Intake & Output 10/19/17 10/20/17 10/21/17 06:59 06:59 06:59 Intake Total 500 1158 Output Total 300 Balance 500 858 Weight 72.5 kg General appearance: PRESENT: no acute distress, well-developed, well-nourished Head exam: PRESENT: atraumatic, normocephalic Eye exam: PRESENT: conjunctiva pink, EOMI, PERRLA. ABSENT: scleral icterus Ear exam: PRESENT: normal external ear exam Mouth exam: PRESENT: moist, tongue midline Neck exam: ABSENT: carotid bruit, JVD, lymphadenopathy, thyromegaly Respiratory exam: PRESENT: clear to auscultation jose. ABSENT: rales, rhonchi, wheezes Cardiovascular exam: PRESENT: RRR. ABSENT: diastolic murmur, rubs, systolic murmur Pulses: PRESENT: normal dorsalis pedis pul Vascular exam: PRESENT: normal capillary refill GI/Abdominal exam: PRESENT: normal bowel sounds, soft. ABSENT: distended, guarding, mass, organolmegaly, rebound, tenderness Rectal exam: PRESENT: deferred Extremities exam: PRESENT: full ROM. ABSENT: calf tenderness, clubbing, pedal edema Neurological exam: PRESENT: alert, awake, oriented to person, oriented to place , oriented to time, oriented to situation, CN II-XII grossly intact. ABSENT: motor sensory deficit Psychiatric exam: PRESENT: appropriate affect, normal mood. ABSENT: homicidal ideation, suicidal ideation Skin exam: PRESENT: dry, intact, warm. ABSENT: cyanosis, rash Results Laboratory Results: 10/20/17 05:38 10/20/17 05:38 Sodium 141.5 Potassium 3.7 Chloride 97 L Carbon Dioxide 32 H Anion Gap 13 BUN 3 L Creatinine 0.63 Est GFR ( Amer) > 60 Est GFR (Non-Af Amer) > 60 Glucose 103 Calcium 9.4 Impressions: Chest CT 10/18/17 10:52 IMPRESSION: Moderate right pleural effusion. Subcentimeter pulmonary nodules. No significant change. Abdomen/Pelvis CT 10/18/17 10:53 IMPRESSION: Right ovarian cyst. No evidence of metastatic disease. Head CT 10/18/17 11:01 IMPRESSION: NORMAL BRAIN CT WITHOUT CONTRAST. EVIDENCE OF ACUTE STROKE: NO. Thoracentesis Ultrasound 10/18/17 13:00 IMPRESSION: SUCCESSFUL THORACENTESIS USING ULTRASOUND GUIDANCE. Chest X-Ray 10/19/17 00:00 IMPRESSION: Persistent right pleural effusion without significant radiographic change. No pneumothorax. Head MRI 10/19/17 00:00 IMPRESSION: NORMAL MRI OF THE BRAIN WITHOUT AND WITH INTRAVENOUS GADOLINIUM CONTRAST. EVIDENCE OF ACUTE STROKE: NO. Assessment & Plan - Diagnosis (1) Malignant pleural effusion Is this a current diagnosis for this admission?: Yes Plan: Pleurx catheter placement today, asked nursing to make sure that there is orders for teaching of that. She will need home health as well. (2) Metastatic breast cancer Is this a current diagnosis for this admission?: Yes Plan: Further treatment on clinical trial planned as outpatient. (3) Brain metastases Is this a current diagnosis for this admission?: Yes Plan: Continued complete response with whole brain radiation now about 6 months ago, hopefully that will continue to last. (4) Pain, neoplasm-related Is this a current diagnosis for this admission?: Yes Plan: Still receiving some Dilaudid, after she receives procedure we may make changes but otherwise we may continue the same pain management as an outpatient. - Time Time Spent with patient: 35 or more minutes - Inpatient Certification Based on my medical assessment, after consideration of the patient's comorbidities, presenting symptoms, or acuity I expect that the services needed warrant INPATIENT care.: Yes I certify that my determination is in accordance with my understanding of Medicare's requirements for reasonable and necessary INPATIENT services [42 CFR 412.3e].: Yes Medical Necessity: Need for Surgery
--- NOTE | 2017-10-20 11:43 | RADIOLOGY REPORT (SQ) ---
EXAM DESCRIPTION: CHEST SINGLE VIEW COMPLETED DATE/TIME: 10/20/2017 11:34 am REASON FOR STUDY: right pleural pleurdex pigtail placement COMPARISON: 10/19/2017 EXAM PARAMETERS: NUMBER OF VIEWS: One view. TECHNIQUE: Single frontal radiographic view of the chest acquired. RADIATION DOSE: NA LIMITATIONS: None. FINDINGS: LUNGS AND PLEURA: Minimal improvement right-sided pleural effusion. No pneumothorax. Lef t lung is grossly clear. MEDIASTINUM AND HILAR STRUCTURES: No masses. Contour normal. HEART AND VASCULAR STRUCTURES: Heart normal in size. Normal vasculature. BONES: No acute findings. HARDWARE: Interval placement of a right sided chest tube without gross complication. Stable appearan ce of left-sided port. OTHER: No other significant finding. IMPRESSION: MINIMAL IMPROVEMENT IN RIGHT-SIDED PLEURAL EFFUSION STATUS POST CHEST TUBE PLACEMENT. N O POSTPROCEDURE COMPLICATION. TECHNICAL DOCUMENTATION: JOB ID: [id number] [employer]- All Rights Reserved Reading location - IP/workstation name: [email or web address]
[2017-10-20] MEDS: VENLAFAXINE HCL 75 MG CAP.SR.24H PO SCH (12:04)
--- NOTE | 2017-10-20 12:04 | Operative Report ---
Nonrecallable Operative Report DATE OF SURGERY: 10/20/17 PREOPERATIVE DIAGNOSIS: Recurrent, malignant pleural effusion on the right POSTOPERATIVE DIAGNOSIS: Same as above OPERATION: Ultrasound-guided placement of a Pleurx intrathoracic drainage catheter on the right. SURGEON: LAURA MOCK ANESTHESIA: LMAC TISSUE REMOVED OR ALTERED: Approximately 900 cc of pleural fluid removed COMPLICATIONS: None apparent ESTIMATED BLOOD LOSS: Minimal PROCEDURE: Drains/implants: Pleurx catheter to the right thoracic cavity. After informed consent was obtained, the patient was laid in the semi-upright position in the OR. The area of the right chest was prepped and draped in a normal, sterile fashion. The ultrasound was used to identify the large right pleural effusion. The thoracic cavity was accessed percutaneously under direct ultrasonic guidance. Pleural fluid was returned in the syringe. A wire was inserted into the thoracic cavity easily. Next the catheter was tunneled subcutaneously from inferior to superior. Next, serial dilators were advanced over the wire. The breakaway sheath was inserted over the wire, and the catheter was inserted into the breakaway sheath. The sheath was cracked and pulled away leaving the catheter within the thoracic cavity on the right. The catheter was sutured to the chest wall using 2-0 nylon suture. The insertion site incision was closed using 3-0 absorbable suture. A Biopatch was placed, and a dressing was fashioned. The catheter was attached to a collection bottle , and approximately 900 cc of total fluid was removed from the chest. All sponge, instrument, and needle counts were correct 2. Condition: Fair.
[2017-10-20] MEDS: VALPROATE SODIUM SYRUP 250 MG/5 ML UDCUP PO SCH ×2 (12:10→17:32)
[2017-10-20] MEDS: OXYCODONE HCL SR 40 MG TABLET PO SCH (12:10)
[2017-10-20] MEDS: POLYETHYLENE GLYCOL 3350 POWDER 17 GM/1 PACKET PO SCH (12:10)
--- NOTE | 2017-10-20 15:06 | PDOC PROGRESS REPORT ---
Subjective Progress Note for:: 10/20/17 Subjective:: Seen after her Pleurx placement. Still quite sedate Reason For Visit: MALIGNANT EFFUSION,MET BREAST CA Physical Exam Vital Signs: Temp Pulse Resp BP Pulse Ox 97.6 F 69 12 118/79 93 10/20/17 13:38 10/20/17 14:00 10/20/17 13:38 10/20/17 13:38 10/20/17 13:38 Intake & Output 10/19/17 10/20/17 10/21/17 05:59 05:59 05:59 Intake Total 1358 300 Output Total 300 Balance 1058 300 Weight 159 lb 13.362 oz General appearance: PRESENT: no acute distress Respiratory exam: PRESENT: clear to auscultation jose Cardiovascular exam: PRESENT: RRR GI/Abdominal exam: PRESENT: soft Neurological exam: PRESENT: other - Sedate Skin exam: PRESENT: warm Results Laboratory Results: 10/20/17 05:38 10/20/17 05:38 Sodium 141.5 Potassium 3.7 Chloride 97 L Carbon Dioxide 32 H Anion Gap 13 BUN 3 L Creatinine 0.63 Est GFR ( Amer) > 60 Est GFR (Non-Af Amer) > 60 Glucose 103 Calcium 9.4 Impressions: Chest CT 10/18/17 10:52 IMPRESSION: Moderate right pleural effusion. Subcentimeter pulmonary nodules. No significant change. Abdomen/Pelvis CT 10/18/17 10:53 IMPRESSION: Right ovarian cyst. No evidence of metastatic disease. Head CT 10/18/17 11:01 IMPRESSION: NORMAL BRAIN CT WITHOUT CONTRAST. EVIDENCE OF ACUTE STROKE: NO. Thoracentesis Ultrasound 10/18/17 13:00 IMPRESSION: SUCCESSFUL THORACENTESIS USING ULTRASOUND GUIDANCE. Head MRI 10/19/17 00:00 IMPRESSION: NORMAL MRI OF THE BRAIN WITHOUT AND WITH INTRAVENOUS GADOLINIUM CONTRAST. EVIDENCE OF ACUTE STROKE: NO. Chest X-Ray 10/20/17 00:00 IMPRESSION: MINIMAL IMPROVEMENT IN RIGHT-SIDED PLEURAL EFFUSION STATUS POST CHEST TUBE PLACEMENT. NO POSTPROCEDURE COMPLICATION. Assessment & Plan - Diagnosis (1) Malignant pleural effusion Is this a current diagnosis for this admission?: Yes Plan: Status post Pleurx placement. Patient needs to be instructed on how to use it and we will arrange for home health after discharge. (2) Metastatic breast cancer Is this a current diagnosis for this admission?: Yes (3) Brain metastases Is this a current diagnosis for this admission?: Yes Plan: Treated with XRT about 6 months ago with no evidence of recurrence (4) Pain, neoplasm-related Is this a current diagnosis for this admission?: Yes Plan: Symptomatic treatment. If she is controlled tomorrow we can probably send her home.
[2017-10-21] MEDS: OXYCODONE HCL SR 40 MG TABLET PO SCH ×3 (00:16→22:31)
[2017-10-21] MEDS: HYDROMORPHONE HCL INJ/PF 2 MG/ML AMPULE IV PRN ×2 (03:17→05:25)
[2017-10-21] MEDS: OXYCODONE HCL IR 5 MG TABLET PO PRN ×4 (04:22→19:32)
--- NOTE | 2017-10-21 08:05 | PDOC PROGRESS REPORT ---
Subjective Progress Note for:: 10/21/17 Subjective:: Still had N/V over last 24hours, having some pain at pleur-x site. Reason For Visit: MALIGNANT EFFUSION,MET BREAST CA Physical Exam Vital Signs: Temp Pulse Resp BP Pulse Ox 97.5 F 82 12 116/74 98 10/20/17 14:50 10/21/17 07:00 10/20/17 14:50 10/20/17 14:50 10/20/17 14:50 Intake & Output 10/20/17 10/21/17 10/22/17 06:59 06:59 06:59 Intake Total 1158 1325 Output Total 300 5 Balance 858 1320 Weight 74.2 kg General appearance: PRESENT: no acute distress, well-developed, well-nourished Head exam: PRESENT: atraumatic, normocephalic Eye exam: PRESENT: conjunctiva pink, EOMI, PERRLA. ABSENT: scleral icterus Ear exam: PRESENT: normal external ear exam Mouth exam: PRESENT: moist, tongue midline Neck exam: ABSENT: carotid bruit, JVD, lymphadenopathy, thyromegaly Respiratory exam: PRESENT: clear to auscultation jose. ABSENT: rales, rhonchi, wheezes Cardiovascular exam: PRESENT: RRR. ABSENT: diastolic murmur, rubs, systolic murmur Pulses: PRESENT: normal dorsalis pedis pul Vascular exam: PRESENT: normal capillary refill GI/Abdominal exam: PRESENT: normal bowel sounds, soft. ABSENT: distended, guarding, mass, organolmegaly, rebound, tenderness Rectal exam: PRESENT: deferred Extremities exam: PRESENT: full ROM. ABSENT: calf tenderness, clubbing, pedal edema Neurological exam: PRESENT: alert, awake, oriented to person, oriented to place , oriented to time, oriented to situation, CN II-XII grossly intact. ABSENT: motor sensory deficit Psychiatric exam: PRESENT: appropriate affect, normal mood. ABSENT: homicidal ideation, suicidal ideation Skin exam: PRESENT: dry, intact, warm. ABSENT: cyanosis, rash Results Laboratory Results: 10/20/17 05:38 Impressions: Chest CT 10/18/17 10:52 IMPRESSION: Moderate right pleural effusion. Subcentimeter pulmonary nodules. No significant change. Abdomen/Pelvis CT 10/18/17 10:53 IMPRESSION: Right ovarian cyst. No evidence of metastatic disease. Head CT 10/18/17 11:01 IMPRESSION: NORMAL BRAIN CT WITHOUT CONTRAST. EVIDENCE OF ACUTE STROKE: NO. Thoracentesis Ultrasound 10/18/17 13:00 IMPRESSION: SUCCESSFUL THORACENTESIS USING ULTRASOUND GUIDANCE. Head MRI 10/19/17 00:00 IMPRESSION: NORMAL MRI OF THE BRAIN WITHOUT AND WITH INTRAVENOUS GADOLINIUM CONTRAST. EVIDENCE OF ACUTE STROKE: NO. Chest X-Ray 10/20/17 00:00 IMPRESSION: MINIMAL IMPROVEMENT IN RIGHT-SIDED PLEURAL EFFUSION STATUS POST CHEST TUBE PLACEMENT. NO POSTPROCEDURE COMPLICATION. Assessment & Plan - Diagnosis (1) Malignant pleural effusion Is this a current diagnosis for this admission?: Yes Plan: Plan drain 400cc q 2 days. Will monitor. (2) Metastatic breast cancer Is this a current diagnosis for this admission?: Yes Plan: Planned for clinical trial initiation as outpt (3) Brain metastases Is this a current diagnosis for this admission?: Yes Plan: MRI brain w/ cont complete response noted (4) Pain, neoplasm-related Is this a current diagnosis for this admission?: Yes Plan: Will monitor closely over next 24 hrs
[2017-10-21] MEDS: VENLAFAXINE HCL 75 MG CAP.SR.24H PO SCH (11:16)
[2017-10-21] MEDS: VALPROATE SODIUM SYRUP 250 MG/5 ML UDCUP PO SCH ×2 (11:16→19:32)
[2017-10-21] MEDS: POLYETHYLENE GLYCOL 3350 POWDER 17 GM/1 PACKET PO SCH (11:16)
--- NOTE | 2017-10-21 13:54 | RADIOLOGY REPORT (SQ) ---
EXAM DESCRIPTION: NM WHOLE BODY BONE SCAN COMPLETED DATE/TIME: 10/21/2017 1:26 pm REASON FOR STUDY: breast CA with mets COMPARISON: MRI brain 10/19/2017 CT chest abdomen pelvis 10/18/2017 RADIONUCLIDE AND DOSE: 21.1 millicuries Tc99m MDP. The route of agent administration: Intravenous. ADDITIONAL DRUGS AND DOSES: None. TECHNIQUE: Routine delayed images at 3 hours post radionuclide injection acquired of the bony skelet on including anterior and posterior whole-body projections and additional focused images as needed. LIMITATIONS: None. FINDINGS: BONES: Normal visualization without areas of photopenia or increased bony uptake of radiop harmaceutical. KIDNEYS: Symmetric excretion without obstruction. OTHER: There is retained activity along the left-sided port IMPRESSION: No bone scan evidence of bony metastatic disease COMMENT: Quality measure 147: Current bone scan is compared with any available plain radiographs, p rior bone scans, and CT/MRI. TECHNICAL DOCUMENTATION: JOB ID: [id number] [employer]- All Rights Reserved Reading location - IP/workstation name: [email or web address]
--- NOTE | 2017-10-21 14:32 | PDOC PROGRESS REPORT ---
Subjective Progress Note for:: 10/21/17 Subjective:: She was seen this morning and was fairly sedate. Awake but clearly drowsy. Later in the morning I was called and notified that she was off the floor, security was notified, and sometime later she reappeared in her room and was exceedingly sedate-essentially unarousable. Vital signs were stable and she was monitored closely. After a while she woke up. Reason For Visit: MALIGNANT EFFUSION,MET BREAST CA Physical Exam Vital Signs: Temp Pulse Resp BP Pulse Ox 98.2 F 85 20 120/63 98 10/21/17 11:56 10/21/17 11:56 10/21/17 11:56 10/21/17 11:56 10/21/17 11:56 Intake & Output 10/20/17 10/21/17 10/22/17 05:59 05:59 05:59 Intake Total 1358 1515 110 Output Total 300 5 Balance 1058 1510 110 Weight 159 lb 13.362 oz 163 lb 9.328 oz General appearance: PRESENT: no acute distress Respiratory exam: PRESENT: clear to auscultation jose Cardiovascular exam: PRESENT: RRR GI/Abdominal exam: PRESENT: soft Extremities exam: ABSENT: pedal edema Musculoskeletal exam: PRESENT: normal inspection Neurological exam: PRESENT: awake, oriented to person, oriented to place, oriented to situation. ABSENT: oriented to time Psychiatric exam: PRESENT: other - Somewhat sedated and disoriented Skin exam: PRESENT: warm Results Laboratory Results: 10/20/17 05:38 Impressions: Chest CT 10/18/17 10:52 IMPRESSION: Moderate right pleural effusion. Subcentimeter pulmonary nodules. No significant change. Abdomen/Pelvis CT 10/18/17 10:53 IMPRESSION: Right ovarian cyst. No evidence of metastatic disease. Head CT 10/18/17 11:01 IMPRESSION: NORMAL BRAIN CT WITHOUT CONTRAST. EVIDENCE OF ACUTE STROKE: NO. Thoracentesis Ultrasound 10/18/17 13:00 IMPRESSION: SUCCESSFUL THORACENTESIS USING ULTRASOUND GUIDANCE. Head MRI 10/19/17 00:00 IMPRESSION: NORMAL MRI OF THE BRAIN WITHOUT AND WITH INTRAVENOUS GADOLINIUM CONTRAST. EVIDENCE OF ACUTE STROKE: NO. Chest X-Ray 10/20/17 00:00 IMPRESSION: MINIMAL IMPROVEMENT IN RIGHT-SIDED PLEURAL EFFUSION STATUS POST CHEST TUBE PLACEMENT. NO POSTPROCEDURE COMPLICATION. Body Scan Nuclear Medicine 10/21/17 00:00 IMPRESSION: No bone scan evidence of bony metastatic disease Assessment & Plan - Diagnosis (1) Malignant pleural effusion Is this a current diagnosis for this admission?: Yes Plan: Status post Pleurx placement. Patient needs to be instructed on how to use it and we will arrange for home health after discharge. (2) Metastatic breast cancer Is this a current diagnosis for this admission?: Yes Plan: Ongoing management per oncology (3) Brain metastases Is this a current diagnosis for this admission?: Yes Plan: Treated with XRT about 6 months ago with no evidence of recurrence (4) Pain, neoplasm-related Is this a current diagnosis for this admission?: Yes Plan: Symptomatic treatment. If she is controlled tomorrow we can probably send her home.
[2017-10-22] MEDS: HYDROMORPHONE HCL INJ/PF 2 MG/ML AMPULE IV PRN (02:20)
--- NOTE | 2017-10-22 08:16 | PDOC PROGRESS REPORT ---
Subjective Progress Note for:: 10/22/17 Subjective:: Read recent issues that happened yesterday, per pt, she did tell staff that she was leaving floor, she seems to have syncopal episode after nuclear dye injection but she notes that she stood up quickly right before that (possible vasovagal?). She feels better today. Wants to go home. Reason For Visit: MALIGNANT EFFUSION,MET BREAST CA Physical Exam Vital Signs: Temp Pulse Resp BP Pulse Ox 97.8 F 97 18 121/88 H 93 10/21/17 20:17 10/22/17 02:00 10/21/17 20:17 10/21/17 20:17 10/21/17 20:17 Intake & Output 10/21/17 10/22/17 10/23/17 06:59 06:59 06:59 Intake Total 1325 1426 Output Total 5 Balance 1320 1426 Weight 74.2 kg 75.8 kg General appearance: PRESENT: no acute distress, well-developed, well-nourished Head exam: PRESENT: atraumatic, normocephalic Eye exam: PRESENT: conjunctiva pink, EOMI, PERRLA. ABSENT: scleral icterus Ear exam: PRESENT: normal external ear exam Mouth exam: PRESENT: moist, tongue midline Neck exam: ABSENT: carotid bruit, JVD, lymphadenopathy, thyromegaly Respiratory exam: PRESENT: clear to auscultation jose. ABSENT: rales, rhonchi, wheezes Cardiovascular exam: PRESENT: RRR. ABSENT: diastolic murmur, rubs, systolic murmur Pulses: PRESENT: normal dorsalis pedis pul Vascular exam: PRESENT: normal capillary refill GI/Abdominal exam: PRESENT: normal bowel sounds, soft. ABSENT: distended, guarding, mass, organolmegaly, rebound, tenderness Rectal exam: PRESENT: deferred Extremities exam: PRESENT: full ROM. ABSENT: calf tenderness, clubbing, pedal edema Neurological exam: PRESENT: alert, awake, oriented to person, oriented to place , oriented to time, oriented to situation, CN II-XII grossly intact. ABSENT: motor sensory deficit Psychiatric exam: PRESENT: appropriate affect, normal mood. ABSENT: homicidal ideation, suicidal ideation Skin exam: PRESENT: dry, intact, warm. ABSENT: cyanosis, rash Results Laboratory Results: 10/20/17 05:38 Impressions: Chest CT 10/18/17 10:52 IMPRESSION: Moderate right pleural effusion. Subcentimeter pulmonary nodules. No significant change. Abdomen/Pelvis CT 10/18/17 10:53 IMPRESSION: Right ovarian cyst. No evidence of metastatic disease. Head CT 10/18/17 11:01 IMPRESSION: NORMAL BRAIN CT WITHOUT CONTRAST. EVIDENCE OF ACUTE STROKE: NO. Thoracentesis Ultrasound 10/18/17 13:00 IMPRESSION: SUCCESSFUL THORACENTESIS USING ULTRASOUND GUIDANCE. Head MRI 10/19/17 00:00 IMPRESSION: NORMAL MRI OF THE BRAIN WITHOUT AND WITH INTRAVENOUS GADOLINIUM CONTRAST. EVIDENCE OF ACUTE STROKE: NO. Chest X-Ray 10/20/17 00:00 IMPRESSION: MINIMAL IMPROVEMENT IN RIGHT-SIDED PLEURAL EFFUSION STATUS POST CHEST TUBE PLACEMENT. NO POSTPROCEDURE COMPLICATION. Body Scan Nuclear Medicine 10/21/17 00:00 IMPRESSION: No bone scan evidence of bony metastatic disease Assessment & Plan - Diagnosis (1) Malignant pleural effusion Is this a current diagnosis for this admission?: Yes Plan: Plan for effusion removal today, teach significant other and plan for home health, pt [facility], asked nursing to let d/c planning know. (2) Metastatic breast cancer Is this a current diagnosis for this admission?: Yes Plan: Plan for initiation of clinical trial as outpt (3) Brain metastases Is this a current diagnosis for this admission?: Yes Plan: Complete response, cont to monitor (4) Pain, neoplasm-related Is this a current diagnosis for this admission?: Yes Plan: Pain controlled. D/c w/ same regimen - Time Time Spent with patient: 35 or more minutes Disposition: Recommend d/c home from onc standpoint, f/u in our office next week, needs home health services
[2017-10-22] MEDS: OXYCODONE HCL SR 40 MG TABLET PO SCH (08:56)
[2017-10-22] MEDS: VENLAFAXINE HCL 75 MG CAP.SR.24H PO SCH (08:57)
[2017-10-22] MEDS: VALPROATE SODIUM SYRUP 250 MG/5 ML UDCUP PO SCH (08:57)
[2017-10-22] MEDS: POLYETHYLENE GLYCOL 3350 POWDER 17 GM/1 PACKET PO SCH (08:58)
[2017-10-22] MEDS: OXYCODONE HCL IR 5 MG TABLET PO PRN (10:34)
[2017-10-22 10:48] VITALS: BP 100/57
--- NOTE | 2017-10-22 15:13 | PDOC DISCHARGE SUMMARY ---
General - Admit/Disc Date/PCP Admission Date/Primary Care Provider: 10/18/17 13:41 Discharge Date: 10/22/17 - Discharge Diagnosis (1) Malignant pleural effusion Is this a current diagnosis for this admission?: Yes Summary: She underwent an urgent thoracentesis with rapid improvement in her symptoms. Subsequently she had a Pleurx catheter placed. She has been instructed on how to use it, home health will come out to make sure she can do it at home. (2) Metastatic breast cancer Is this a current diagnosis for this admission?: Yes Summary: Scheduled to begin clinical trials per oncology as an outpatient (3) Brain metastases Is this a current diagnosis for this admission?: Yes Summary: Treated with XRT about 6 months ago. MRI of her head this admission showed no evidence of recurrence. (4) Pain, neoplasm-related Is this a current diagnosis for this admission?: Yes Summary: Home medications are continued - Additional Information Resuscitation Status: Full Code Discharge Diet: As Tolerated Discharge Activity: Activity As Tolerated Home Medications: Naloxone HCl [Narcan] 4 mg NASL PRN PRN 09/17/17 Oxycodone HCl 20 mg PO Q4HP PRN 09/17/17 Oxycodone HCl [Oxycontin] 40 mg PO Q12 09/17/17 Venlafaxine HCl ER [Effexor Xr 75 mg Cap.sr] 75 mg PO DAILY 09/17/17 Valproic Acid [Depakene] 500 mg PO BID #60 capsule 09/22/17 Albuterol Sulfate [Ventolin 0.083% Neb 2.5 mg/3 mL Ampul] 1 vial NEB Q4 Esomeprazole Magnesium [Nexium 24Hr] 20 mg PO DAILY 10/18/17 Hydrocortisone Acetate [Anucort-Hc] 25 mg RC BID 10/18/17 History of Present Illness Patient complains of: Short of breath History of Present Illness: EFFIE LOUIS is a 37 year old female with metastatic breast cancer who has had recurrent right malignant pleural effusions. She saw Dr. Ahn today who sent her over to the emergency room. She reports progressive shortness of breath since her last thoracentesis 10/10/17. She is also complaining of uncontrolled diffuse pain. She denies fevers or chills, admits to nausea and vomiting, denies diarrhea. She is here accompanied by her child. Hospital Course Hospital Course: She underwent an urgent thoracentesis by radiology. Oncology was consulted and they requested surgery to place a Pleurx catheter. That has been accomplished and is functioning well. She feels well enough to go home, will have home health go out and ensure her successful transition. Physical Exam Vital Signs: Temp Pulse Resp BP Pulse Ox 98.0 F 80 16 100/57 L 95 10/22/17 09:00 10/22/17 09:00 10/22/17 09:00 10/22/17 09:00 10/22/17 09:00 Intake & Output 10/21/17 10/22/17 10/23/17 05:59 05:59 05:59 Intake Total 1515 1314 222 Output Total 5 100 Balance 1510 1314 122 Weight 163 lb 9.328 oz 167 lb 1.766 oz General appearance: PRESENT: no acute distress Respiratory exam: PRESENT: clear to auscultation jose, other - Catheter in place Cardiovascular exam: PRESENT: RRR GI/Abdominal exam: PRESENT: soft Neurological exam: PRESENT: awake Psychiatric exam: PRESENT: appropriate affect Skin exam: PRESENT: warm Results Laboratory Results: 10/20/17 05:38 Impressions: Chest CT 10/18/17 10:52 IMPRESSION: Moderate right pleural effusion. Subcentimeter pulmonary nodules. No significant change. Abdomen/Pelvis CT 10/18/17 10:53 IMPRESSION: Right ovarian cyst. No evidence of metastatic disease. Head CT 10/18/17 11:01 IMPRESSION: NORMAL BRAIN CT WITHOUT CONTRAST. EVIDENCE OF ACUTE STROKE: NO. Thoracentesis Ultrasound 10/18/17 13:00 IMPRESSION: SUCCESSFUL THORACENTESIS USING ULTRASOUND GUIDANCE. Head MRI 10/19/17 00:00 IMPRESSION: NORMAL MRI OF THE BRAIN WITHOUT AND WITH INTRAVENOUS GADOLINIUM CONTRAST. EVIDENCE OF ACUTE STROKE: NO. Chest X-Ray 10/20/17 00:00 IMPRESSION: MINIMAL IMPROVEMENT IN RIGHT-SIDED PLEURAL EFFUSION STATUS POST CHEST TUBE PLACEMENT. NO POSTPROCEDURE COMPLICATION. Body Scan Nuclear Medicine 10/21/17 00:00 IMPRESSION: No bone scan evidence of bony metastatic disease Qualifiers - * PATIENT BEING DISCHARGED WITH ANY OF THE FOLLOWING DIAGNOSIS: No
== END 2017-10-22 12:20 | disposition home health service (06) | DRG 598 ==
LOC: ER 09:50 → EH 13:41 → 5 16:45
PROVIDERS: ADMIT Internal Medicine; ATTEND Internal Medicine
PROC: 0W993ZZ Drainage of Right Pleural Cavity, Percutaneous Approach (ICD-10-PCS; 2017-10-18)
PROC: 0W9930Z Drainage of Right Pleural Cavity with Drainage Device, Percutaneous Approach (ICD-10-PCS; principal; 2017-10-20 09:00)
DX: C50.911 Malignant neoplasm of unspecified site of right female breast (principal); J91.0 Malignant pleural effusion; C79.31 Secondary malignant neoplasm of brain; C78.00 Secondary malignant neoplasm of unspecified lung; G89.3 Neoplasm related pain (acute) (chronic); M79.7 Fibromyalgia; K21.9 Gastro-esophageal reflux disease without esophagitis; Z98.891 History of uterine scar from previous surgery; Z90.49 Acquired absence of other specified parts of digestive tract; Z79.899 Other long term (current) drug therapy; Z90.11 Acquired absence of right breast and nipple; Z79.891 Long term (current) use of opiate analgesic
CPT/HCPCS: 32555; 36415; 520; 70450; 70553; 71045; 71260; 74177; 78306; 80048; 80053; 82803; 83605; 85025; 85610; 87040; 93005; 93010; 94640; 96374; 99285; A9561; J1170; J1642; J2060; J2250; J2270; J2405; J2704; J3010; J3490; J7620; Q9969

== ENCOUNTER → 2017-10-31 | Outpatient (CLI) | payer MEDICAID ==
--- NOTE | 2017-10-31 13:26 | RADIOLOGY REPORT (SQ) ---
EXAM DESCRIPTION: CHEST 2 VIEWS COMPLETED DATE/TIME: 10/31/2017 12:54 pm REASON FOR STUDY: R07.9 CHEST PAIN, UNSPECIFIED COMPARISON: Chest films 10/10/2017, 10/19/2017, 10/20/2017 CT chest 10/18/2017 EXAM PARAMETERS: NUMBER OF VIEWS: two views TECHNIQUE: Digital Frontal and Lateral radiographic views of the chest acquired. RADIATION DOSE: NA LIMITATIONS: none FINDINGS: LUNGS AND PLEURA: Patient has a a right-sided silicone pleural catheter, with the tip and side holes in the pleural space. Catheter position is unchanged from chest film 10/20/2017. No right-sided pneumothorax. There is pleural thickening in the right lateral costophrenic sulcus and minimal right basilar and ri ght mid lung atelectasis. No significant pleural fluid residua. Left lung and pleural space unremarkable. MEDIASTINUM AND HILAR STRUCTURES: No masses or contour abnormalities. HEART AND VASCULAR STRUCTURES: Heart normal size. No evidence for failure. BONES: No acute findings. HARDWARE: Right PleurX catheter unchanged from 10/20/2017. Left-sided permanent central line tip superior vena cava. Clips right upper quadrant post cholecyste ctomy. OTHER: No other significant finding. IMPRESSION: Right PleurX catheter in good positioning. No pneumothorax. Minimal right lateral cost ophrenic sulcus pleural thickening. TECHNICAL DOCUMENTATION: JOB ID: [id number] [employer]- All Rights Reserved Reading location - IP/workstation name: [email or web address]
== END ==
LOC: RAD 12:38
PROVIDERS: ATTEND Internal Medicine
DX: R07.9 Chest pain, unspecified (principal)
CPT/HCPCS: 71046

== ENCOUNTER 2017-11-06 20:34 | Inpatient (IN) | payer MEDICAID ==
--- NOTE | 2017-11-06 21:46 | RADIOLOGY REPORT (SQ) ---
EXAM DESCRIPTION: CHEST 2 VIEWS COMPLETED DATE/TIME: 11/06/2017 9:32 pm REASON FOR STUDY: SOB hx pleural effusion COMPARISON: 10/31/2017 EXAM PARAMETERS: NUMBER OF VIEWS: two views TECHNIQUE: Digital Frontal and Lateral radiographic views of the chest acquired. RADIATION DOSE: NA LIMITATIONS: none FINDINGS: LUNGS AND PLEURA: Increasing right pleural effusion. An air-fluid level is present sugges ting pneumothorax. No pulmonary mass or infiltrate. MEDIASTINUM AND HILAR STRUCTURES: No masses or contour abnormalities. HEART AND VASCULAR STRUCTURES: Heart normal size. No evidence for failure. BONES: No acute findings. HARDWARE: Chest tube is present on the right. An injection port is present on the left. OTHER: No other significant finding. IMPRESSION: Increasing right pleural effusion with partial pneumothorax identified by the presence o f an air-fluid level. Chest tube is in place. TECHNICAL DOCUMENTATION: JOB ID: [id number]- All Rights Reserved Reading location - IP/workstation name: [email or web address]
[2017-11-06] MEDS ORDERED: HYDROMORPHONE HCL INJ/PF 2 MG/ML AMPULE IV ONE ×3 (22:09→23:12)
--- NOTE | 2017-11-06 22:16 | ER Document Report ---
ED General - General Chief Complaint: Abdominal Pain Stated Complaint: ABDOMINAL PAIN Time Seen by Provider: 11/06/17 22:01 Mode of Arrival: Ambulatory Information source: Patient Notes: 37-year-old female with metastatic breast cancer presents with complaint of right flank and right upper abdominal pain that started 1 day prior to arrival. Patient has had recurrent pleural effusions and recently underwent a Pleurx drain 3 weeks prior to arrival. Patient states that she has not had no issues until yesterday when she developed throbbing pain and worsening shortness of breath. Patient does have a home health nurse who drains along every 3 days. She states it was last drained 2 days ago. Patient underwent chemotherapy yesterday. She has had nausea, fever at home. She has taken Tylenol for this. TRAVEL OUTSIDE OF THE [place] IN LAST 30 DAYS: No - HPI Onset: Yesterday Onset/Duration: Sudden Quality of pain: Stabbing, Throbbing Severity: Moderate Pain Level: 3 Associated symptoms: Fever, Nausea Exacerbated by: Movement, Deep breathing Relieved by: Denies Similar symptoms previously: Yes Recently seen / treated by doctor: Yes - Related Data Allergies/Adverse Reactions: Adhesive Bandage * [Adhesive Bandage] Allergy (Mild, Verified 10/18/17 09:52) Generalized rash adhesive tape [Adhesive Tape] Allergy (Mild, Verified 10/18/17 09:52) Generalized rash Past Medical History - General Information source: Patient - Social History Smoking Status: Never Smoker Frequency of alcohol use: None Drug Abuse: None Lives with: Family Family History: DM Patient has suicidal ideation: No Patient has homicidal ideation: No - Past Medical History Cardiac Medical History: Denies: Hx Coronary Artery Disease, Hx Heart Attack, Hx Hypertension Pulmonary Medical History: Reports: Hx Asthma - TEENAGER, Hx Pneumonia - recently d/c'd 05/10/17 Denies: Hx Bronchitis, Hx COPD, Hx Tuberculosis Neurological Medical History: Reports: Hx Migraine, Hx Seizures. Denies: Hx Cerebrovascular Accident Renal/ Medical History: Denies: Hx Peritoneal Dialysis Malignancy Medical History: Reports: Hx Brain Cancer, Hx Breast Cancer - right mastectomy, Hx Lung Cancer GI Medical History: Reports: Hx Gastroesophageal Reflux Disease. Denies: Hx Hiatal Hernia Musculoskeltal Medical History: Denies Hx Arthritis, Reports Hx Fibromyalgia Psychiatric Medical History: Denies: Hx Depression Infectious Medical History: Past Surgical History: Reports: Hx Section - x2, Hx Cholecystectomy, Hx Mastectomy - Right right mastectomy with axillary node dissection, Hx Orthopedic Surgery, Hx Tonsillectomy, Hx Tubal Ligation, Hx Vascular Surgery - Left chest wall port - Immunizations Hx Diphtheria, Pertussis, Tetanus Vaccination: Yes Hx Pneumococcal Vaccination: 04/30/13 Review of Systems - Review of Systems Constitutional: Fever, Malaise, Weakness EENT: denies: Blurred vision Cardiovascular: denies: Chest pain, Palpitations, Heart racing Respiratory: Hurts to breathe, Short of breath Gastrointestinal: Nausea Genitourinary: Flank pain Female Genitourinary: No symptoms reported Musculoskeletal: No symptoms reported Skin: No symptoms reported Hematologic/Lymphatic: No symptoms reported Neurological/Psychological: No symptoms reported -: Yes All other systems reviewed and negative Physical Exam - Vital signs Vitals: Temp Pulse Resp BP Pulse Ox 97.6 F 69 16 97/61 L 100 11/07/17 02:38 11/07/17 02:38 11/07/17 02:38 11/07/17 02:38 11/07/17 02:38 - Notes Notes: PHYSICAL EXAMINATION: GENERAL: Well-appearing, well-nourished and in no acute distress. HEAD: Atraumatic, normocephalic. EYES: Pupils equal round and reactive to light, extraocular movements intact, conjunctiva are normal. ENT: Nares patent, oropharynx clear without exudates. Moist mucous membranes. NECK: Normal range of motion, supple without lymphadenopathy LUNGS: Breath sounds clear to auscultation bilaterally and equal. No wheezes rales or rhonchi. HEART: Regular rate and rhythm without murmurs ABDOMEN: Soft, nontender, nondistended abdomen. No guarding, no rebound. No masses appreciated. Right flank tenderness. Right Pleurx in place. Female : deferred Musculoskeletal: Normal range of motion, no pitting or edema. No cyanosis. NEUROLOGICAL: Cranial nerves grossly intact. Normal speech, normal gait. Normal sensory, motor exams PSYCH: Normal mood, normal affect. SKIN: Warm, Dry, normal turgor, no rashes or lesions noted. Course - Re-evaluation Re-evalutation: Laboratory 11/06/17 11/06/17 22:41 22:41 WBC 11.1 H RBC 3.13 L Hgb 10.8 L Hct 31.6 L MCV 101 H MCH 34.3 H MCHC 34.1 RDW 14.6 H Plt Count 323 Seg Neutrophils % 80.9 H Lymphocytes % 8.9 L Monocytes % 8.5 Eosinophils % 0.5 Basophils % 1.2 Absolute Neutrophils 8.9 H Absolute Lymphocytes 1.0 Absolute Monocytes 0.9 Absolute Eosinophils 0.1 Absolute Basophils 0.1 Sodium 139.8 Potassium 4.0 Chloride 106 Carbon Dioxide 26 Anion Gap 8 BUN 5 L Creatinine 0.60 Est GFR ( Amer) > 60 Est GFR (Non-Af Amer) > 60 Glucose 83 Calcium 8.7 Total Bilirubin 0.4 Direct Bilirubin 0.3 Neonat Total Bilirubin Not Reportable Neonat Direct Bilirubin Not Reportable Neonat Indirect Bili Not Reportable AST 17 ALT 18 Alkaline Phosphatase 50 Total Protein 5.9 L Albumin 3.0 L Chest X-Ray 11/06/17 23:11 IMPRESSION: 1. Overall no significant interval change with persistent tiny right apical pneumothorax with right chest tube in place and moderate right pleural effusion. 37-year-old female with metastatic breast cancer presents with complaint of right flank and right upper abdominal pain that started 1 day prior to arrival. Patient has had recurrent pleural effusions and recently underwent a Pleurx drain 3 weeks prior to arrival. Patient states that she has not had no issues until yesterday when she developed throbbing pain and worsening shortness of breath. Patient does have a home health nurse who drains along every 3 days. She states it was last drained 2 days ago. Patient underwent chemotherapy yesterday. Patient was seen by myself upon arrival. Vital signs were reviewed. Patient is afebrile, normotensive and not hypoxic. Patient does not appear toxic or dehydrated, does appear to be in pain.. They are in moderate distress. Previous medical records and nursing notes reviewed. Significant findings include a CBC with a new leukocytosis. A chest x-ray which shows a moderate right pleural effusion and a small apical pneumothorax. pleurx was drained and 200 cc of serosanguineous fluid was removed. Patient did report some improvement of pain after drainage. 11/06/17 23:[address] Serrano from surgery who states that he will consult on the patient. Spoke to Dr. Reveles from oncology who recommends admission for pain control, starting of Zosyn for possible infection. 11/07/17 00:[address] Spencer hospitalist who wants surgery to see the patient because they are concerned that she may need a VATS procedure which would require transfer. Dr. Tafoya evaluated the patient and agrees to admit her under his service. 11/07/17 03:53 11/07/17 03:54 11/07/17 03:54 - Vital Signs Vital signs: Temp Pulse Resp BP Pulse Ox 97.6 F 69 16 97/61 L 100 11/07/17 02:38 11/07/17 02:38 11/07/17 02:38 11/07/17 02:38 11/07/17 02:38 - Laboratory Result Diagrams: 11/06/17 22:41 11/06/17 22:41 Laboratory results interpreted by me: 11/06/17 11/06/17 22:41 22:41 WBC 11.1 H RBC 3.13 L Hgb 10.8 L Hct 31.6 L MCV 101 H MCH 34.3 H RDW 14.6 H Seg Neutrophils % 80.9 H Lymphocytes % 8.9 L Absolute Neutrophils 8.9 H BUN 5 L Total Protein 5.9 L Albumin 3.0 L - Diagnostic Test Radiology reviewed: Image reviewed, Reports reviewed Discharge - Discharge Clinical Impression: Metastatic cancer, Pleural effusion, Metastatic breast cancer, Flank pain Fever Qualifiers: Fever type: unspecified Qualified Code(s): R50.9 - Fever, unspecified Condition: Fair Disposition: ADMITTED INPATIENT Admitting Provider: Surgicalist Unit Admitted: Surgical Floor
[2017-11-06] MEDS ORDERED: ONDANSETRON HCL INJ/PF 4 MG/2 ML SDV ONE (22:55)
[2017-11-06 22:59] LABS: ABSOLUTE BASOPHILS # (AUTO) 0.1 10^3/uL (0.0-0.2); ABSOLUTE EOSINOPHILS # (AUTO) 0.1 10^3/uL (0.0-0.6); ABSOLUTE MONOCYTES (AUTO) 0.9 10^3/uL (0.1-1.4); ABSOLUTE NEUT (AUTO) 8.9 10^3/uL (1.7-8.2); BASOPHILS % (AUTO) 1.2 % (0-2); EOSINOPHILS % (AUTO) 0.5 % (0-6); HEMATOCRIT 31.6 % (36.0-47.0); HEMOGLOBIN 10.8 g/dL (12.0-15.5); LYMPHOCYTES % (AUTO) 8.9 % (13-45); MEAN CORPUSCULAR HEMOGLOBIN 34.3 pg (27.0-33.4); MEAN CORPUSCULAR HGB CONC 34.1 g/dL (32.0-36.0); MEAN CORPUSCULAR VOLUME 101 fl (80-97); MONOCYTES % (AUTO) 8.5 % (3-13); PLATELET COUNT 323 10^3/uL (150-450); RED BLOOD COUNT 3.13 10^6/uL (3.72-5.28); RED CELL DISTRIBUTION WIDTH 14.6 % (11.5-14.0); SEGMENTED NEUTROPHILS % (AUTO) 80.9 % (42-78); TOTAL CELLS COUNTED % (AUTO) 100 %; WHITE BLOOD COUNT 11.1 10^3/uL (4.0-10.5)
[2017-11-06] MEDS ORDERED: ONDANSETRON HCL INJ/PF 4 MG/2 ML SDV IV ONE (23:16)
[2017-11-06 23:27] LABS: ALANINE AMINOTRANSFERASE 18 U/L (9-52); ALKALINE PHOSPHATASE 50 U/L (38-126); ANION GAP 8 (5-19); ASPARTATE AMINO TRANSFERASE 17 U/L (14-36); BILIRUBIN,DIRECT 0.3 mg/dL (0.0-0.4); BILIRUBIN,TOTAL 0.4 mg/dL (0.2-1.3); BLOOD UREA NITROGEN 5 mg/dL (7-20); CALCIUM 8.7 mg/dL (8.4-10.2); CARBON DIOXIDE 26 mmol/L (22-30); CHLORIDE 106 mmol/L (98-107); GLUCOSE 83 mg/dL (75-110); SODIUM 139.8 mmol/L (137-145); TOTAL PROTEIN 5.9 g/dL (6.3-8.2)
[2017-11-06] MEDS ORDERED: PIPERACILLIN/TAZOBACTAM 3.375 GM VIAL IV ONE (23:50)
--- NOTE | 2017-11-06 23:54 | RADIOLOGY REPORT (SQ) ---
EXAM DESCRIPTION: Single view of the chest CLINICAL HISTORY: drainage for pleural effusion COMPARISON: 11/06/2017 FINDINGS: Single frontal view of the chest. Cardiomediastinal silhouette is stable. Left IJ Mediport with tip in the SVC. Right-sided chest tube is in stable position. Tiny right apical pneumothorax. Moderate right pleural effusion. Postoperative change in the right chest. Hazy right basilar opacities. No acute osseous abnormalities. Upper abdominal soft tissues are unremarkable. IMPRESSION: 1. Overall no significant interval change with persistent tiny right apical pneumothorax with right chest tube in place and moderate right pleural effusion.
[2017-11-07] MEDS ORDERED: HYDROMORPHONE HCL INJ/PF 2 MG/ML AMPULE IV PRN (01:13)
[2017-11-07] MEDS ORDERED: PIPERACILLIN/TAZOBACTAM 3.375 GM VIAL IV PRN (01:20)
--- NOTE | 2017-11-07 01:24 | PDOC H&P ---
History of Present Illness Admission Date/PCP: 11/07/17 01:07 ANDREA HOPPER MD Patient complains of: Pains along the right chest tube (Pleurex) site History of Present Illness: EFFIE LOUIS is a 37 year old female with history of breast cancer with mets. Had a right chest tube (Pleurex) placed [address] Preston for malignant right pleural effusion. Yesterday patient had chemotherapy followed by severe pains along the path of the right chest tube to the point where she could not lie down and had severe shortness of breath. Past Medical History Cardiac Medical History: Denies: Coronary Artery Disease, Myocardial Infarction, Hypertension Pulmonary Medical History: Reports: Asthma - TEENAGER, Pneumonia - recently d /c'd 05/10/17 Denies: Bronchitis, Chronic Obstructive Pulmonary Disease (COPD), Tuberculosis Neurological Medical History: Reports: Migraine, Seizures Malignancy Medical History: Reports: Brain Cancer, Breast Cancer - right mastectomy, Lung Cancer Malignancy History Note: Breast ca with mets GI Medical History: Reports: Gastroesophageal Reflux Disease Denies: Hiatal Hernia Musculoskeltal Medical History: Reports: Fibromyalgia Denies: Arthritis Psychiatric Medical History: Denies: Depression Hematology: Denies: Anemia, Sickle Cell Disease Past Surgical History Past Surgical History: Reports: Amputation, Section - x2, Cholecystectomy, Mastectomy - Right right mastectomy with axillary node dissection, Orthopedic Surgery, Tonsillectomy, Tubal Ligation, Vascular Surgery - Left chest wall port Social History Lives with: Family Smoking Status: Never Smoker Frequency of Alcohol Use: None Hx Recreational Drug Use: No Drugs: None Hx Prescription Drug Abuse: No Family History Family History: DM Parental Family History Reviewed: Yes Children Family History Reviewed: No Sibling(s) Family History Reviewed.: No Medication/Allergy Home Medications: Docusate Sodium [Colace 100 mg Capsule] 100 mg PO BID 11/07/17 Hydrocortisone Acetate [Anusol Hc 25 mg Supp.rect] 1 supp.rect AR BIDP PRN 11/07 Linaclotide [Linzess 145 Mcg Capsule] 145 mcg PO DAILY 11/07/17 Ondansetron HCl [Zofran 4 mg Tablet] 1 tab PO BID 11/07/17 Oxycodone HCl [Oxycontin] 40 mg PO Q12 11/07/17 Promethazine HCl [Phenergan 25 mg Tablet] 25 mg PO Q6HP PRN 11/07/17 Valproic Acid [Depakene] 500 mg PO BID 11/07/17 Venlafaxine HCl ER [Effexor Xr 75 mg Cap.sr] 75 mg PO DAILY 11/07/17 Allergies/Adverse Reactions: Adhesive Bandage * [Adhesive Bandage] Allergy (Mild, Verified 10/18/17 09:52) Generalized rash adhesive tape [Adhesive Tape] Allergy (Mild, Verified 10/18/17 09:52) Generalized rash Review of Systems Constitutional: PRESENT: weakness Eyes: PRESENT: other - no visual/hearing changes Cardiovascular: PRESENT: orthropnea Respiratory: PRESENT: dyspnea Gastrointestinal: PRESENT: other - no abdominal pains Genitourinary: PRESENT: other - no dysuria Musculoskeletal: PRESENT: back pain Psychiatric: PRESENT: anxiety Hematologic/Lymphatic: PRESENT: other - no easy bruising Physical Exam General appearance: PRESENT: severe distress Head exam: PRESENT: atraumatic Eye exam: PRESENT: conjunctiva pink Mouth exam: PRESENT: moist Neck exam: PRESENT: full ROM Respiratory exam: PRESENT: chest wall tenderness - along chest tube site with bulging which she just noted yesterday Cardiovascular exam: PRESENT: RRR Pulses: PRESENT: normal radial pulses Vascular exam: PRESENT: normal capillary refill GI/Abdominal exam: PRESENT: soft Rectal exam: PRESENT: deferred Extremities exam: PRESENT: full ROM Musculoskeletal exam: PRESENT: ambulatory Neurological exam: PRESENT: alert, oriented to person, oriented to place, oriented to time, oriented to situation Psychiatric exam: PRESENT: anxious Skin exam: PRESENT: normal color, warm Results Impressions: Chest X-Ray 11/06/17 23:11 IMPRESSION: 1. Overall no significant interval change with persistent tiny right apical pneumothorax with right chest tube in place and moderate right pleural effusion. Assessment & Plan - Diagnosis (1) infected right chest tube site Is this a current diagnosis for this admission?: Yes (2) Metastatic breast cancer Is this a current diagnosis for this admission?: Yes (3) Malignant neoplasm of upper-outer quadrant of right female breast Qualifiers: Estrogen receptor status: unspecified Qualified Code(s): C50.411 - Malignant neoplasm of upper-outer quadrant of right female breast Is this a current diagnosis for this admission?: Yes (4) Malignant pleural effusion Is this a current diagnosis for this admission?: Yes (5) Opioid dependence Qualifiers: Substance use status: uncomplicated Qualified Code(s): F11.20 - Opioid dependence, uncomplicated Is this a current diagnosis for this admission?: Yes (6) Pleural effusion Is this a current diagnosis for this admission?: Yes - Time Time Spent: 30 to 50 Minutes - Inpatient Certification Medical Necessity: Need for Pain Control, Need for IV Antibiotics, Need for Surgery - Plan Summary Plan Summary: Possible drainage of right pleural effusion by IR Possible removal of right chest tube (pleurex) and drainage of insertion site for possible abscess Possible placement of new Pleurex pleural chest tube IV antibiotics NPO and hydrate
[2017-11-07] MEDS ORDERED: DEXTROSE 50%-WATER 25 GM/50 ML DISP.SYRIN IV PRN ×2 (01:28)
[2017-11-07] MEDS ORDERED: DEXTROSE 40% GEL 15 GM TUBE PO PRN ×2 (01:28)
[2017-11-07] MEDS ORDERED: GLUCAGON,HUMAN RECOMB 1 MG INJ SUBCUT PRN (01:28)
[2017-11-07] MEDS ORDERED: ONDANSETRON HCL INJ/PF 4 MG/2 ML SDV IV PRN ×2 (01:28→13:30)
[2017-11-07] MEDS ORDERED: PIPERACILLIN SODIUM/TAZOBACTAM 3.375 GM in NORMAL SALINE 100 ML IV ONE (01:30)
[2017-11-07] MEDS ORDERED: PIPERACILLIN/TAZOBACTAM 3.375 GM VIAL IV SCH (01:45)
[2017-11-07] MEDS: NORMAL SALINE 1000 ML 1,000 ML IV PRN (02:50)
[2017-11-07] MEDS ORDERED: KETOROLAC TROMETHAMINE INJ/PF 30 MG/1 ML SDV IV ONE (03:45)
[2017-11-07] MEDS: HYDROMORPHONE HCL INJ/PF 2 MG/ML AMPULE IV PRN ×7 (03:52→18:00)
[2017-11-07] MEDS ORDERED: LORAZEPAM INJ 2 MG/1 ML VIAL ONE (04:17)
[2017-11-07] MEDS ORDERED: LORAZEPAM INJ 2 MG/1 ML VIAL IV ONE (04:30)
--- NOTE | 2017-11-07 08:25 | PDOC CONSULTATION ---
Consultation Consult Date: 11/07/17 Attending physician:: FERNANDA JONES Consult reason:: Infected Pleurx catheter, malignant pleural effusion, stage IV breast cancer, severe pain History of Present Illness Admission Date/PCP: 11/07/17 01:07 ANDREA HOPPER MD Patient complains of: Severe right-sided chest pain at the Pleurx catheter site , swelling History of Present Illness: EFFIE LOUIS is a 37 year old female with known history of right malignant pleural effusion, and the last 2 months she had 3 separate admissions for malignant pleural effusion, and 3 thoracenteses, ultimately we decided on Pleurx catheter placement. She has been doing generally well since the catheter placement she is always had some discomfort at the site, however over the last 24 hours prior to admission she had increasing pain at the Pleurx catheter site, on physical exam today there is tenderness around the site, and there is a swelling about a centimeter above the site, the area feels warm, there apparently is leakage around the Pleurx catheter site. Yesterday there was 200 cc of serosanguineous fluid removed in the ED, but the patient feels that the fluid is not flowing as well as it was previously. She is currently on clinical trial, and she received Taxol on clinical trial about a day ago. Of note she was also febrile, at home, 101.5. Past Medical History Cardiac Medical History: Denies: Coronary Artery Disease, Myocardial Infarction, Hypertension Pulmonary Medical History: Reports: Asthma - TEENAGER, Pneumonia - recently d /c'd 05/10/17 Denies: Bronchitis, Chronic Obstructive Pulmonary Disease (COPD), Tuberculosis Neurological Medical History: Reports: Migraine, Seizures Malignancy Medical History: Reports: Brain Cancer, Breast Cancer - right mastectomy, Lung Cancer GI Medical History: Reports: Gastroesophageal Reflux Disease Denies: Hiatal Hernia Musculoskeltal Medical History: Reports: Fibromyalgia Denies: Arthritis Psychiatric Medical History: Denies: Depression Hematology: Denies: Anemia, Sickle Cell Disease Past Surgical History Past Surgical History: Reports: Amputation, Section - x2, Cholecystectomy, Mastectomy - Right right mastectomy with axillary node dissection, Orthopedic Surgery, Tonsillectomy, Tubal Ligation, Vascular Surgery - Left chest wall port Social History Information Source: Patient Lives with: Family Smoking Status: Never Smoker Frequency of Alcohol Use: None Hx Recreational Drug Use: No Drugs: None Hx Prescription Drug Abuse: No - Advance Directive Resuscitation Status: Full Code Family History Family History: DM Parental Family History Reviewed: Yes Children Family History Reviewed: Yes Sibling(s) Family History Reviewed.: Yes Medication/Allergy Allergies/Adverse Reactions: Adhesive Bandage * [Adhesive Bandage] Allergy (Mild, Verified 10/18/17 09:52) Generalized rash adhesive tape [Adhesive Tape] Allergy (Mild, Verified 10/18/17 09:52) Generalized rash Review of Systems Constitutional: PRESENT: anorexia, fatigue, fever(s), weakness Cardiovascular: PRESENT: chest pain, dyspnea on exertion Gastrointestinal: ABSENT: abdominal pain, constipation, diarrhea, hematemesis, hematochezia, nausea, vomiting Neurological: ABSENT: abnormal gait, abnormal speech, confusion, dizziness, focal weakness, syncope Endocrine: ABSENT: cold intolerance, heat intolerance, polydipsia, polyuria Physical Exam Vital Signs: Temp Pulse Resp BP Pulse Ox 97.6 F 58 L 16 97/61 L 100 11/07/17 02:38 11/07/17 07:00 11/07/17 02:38 11/07/17 02:38 11/07/17 02:38 Intake & Output 11/06/17 11/07/17 11/08/17 06:59 06:59 06:59 Output Total 400 Balance -400 Weight 77.2 kg General appearance: PRESENT: mild distress - Secondary to pain Head exam: PRESENT: atraumatic Ear exam: PRESENT: normal external ear exam Mouth exam: PRESENT: dry mucosa Neck exam: ABSENT: carotid bruit, JVD, lymphadenopathy, thyromegaly Respiratory exam: PRESENT: other - Right Pleurx catheter site with warmth, swelling approximately 1 cm above GI/Abdominal exam: PRESENT: normal bowel sounds, soft. ABSENT: distended, guarding, mass, organolmegaly, rebound, tenderness Rectal exam: PRESENT: deferred Extremities exam: PRESENT: full ROM. ABSENT: calf tenderness, clubbing, pedal edema Musculoskeletal exam: PRESENT: ambulatory Neurological exam: PRESENT: alert, awake, oriented to person, oriented to place , oriented to time, oriented to situation, CN II-XII grossly intact. ABSENT: motor sensory deficit Results Impressions: Chest X-Ray 11/06/17 23:11 IMPRESSION: 1. Overall no significant interval change with persistent tiny right apical pneumothorax with right chest tube in place and moderate right pleural effusion. Status: Image reviewed by me Assessment & Plan - Diagnosis (1) infected right chest tube site Is this a current diagnosis for this admission?: Yes Plan: It does appear that there is probably an abscess, discussed case with general surgery who will be doing ultrasound today to assess that area. She may need drainage of that abscess. She is on broad-spectrum antibiotics. She does need Pleurx catheter because she has recurrent malignant pleural effusion so if that site ultimately needs to be changed we will need another site. (2) Malignant pleural effusion Is this a current diagnosis for this admission?: Yes Plan: Known malignant pleural effusion, will require continued drainage. (3) Metastatic breast cancer Is this a current diagnosis for this admission?: Yes Plan: Patient on clinical trial, we will follow (4) Pain, neoplasm-related Is this a current diagnosis for this admission?: Yes Plan: I have added her pain medication back, she was on OxyContin 40 mg twice daily, I have increased her to Dilaudid. I will manage her pain control. - Time Time Spent: Greater than 70 Minutes Medications reviewed and adjusted accordingly: Yes - Inpatient Certification Based on my medical assessment, after consideration of the patient's comorbidities, presenting symptoms, or acuity I expect that the services needed warrant INPATIENT care.: Yes I certify that my determination is in accordance with my understanding of Medicare's requirements for reasonable and necessary INPATIENT services [42 CFR 412.3e].: Yes Medical Necessity: Need for Pain Control, Need for IV Antibiotics, Need for Surgery
[2017-11-07] MEDS: PIPERACILLIN SODIUM/TAZOBACTAM 3.375 GM in NORMAL SALINE 100 ML IV SCH ×3 (09:10→21:27)
[2017-11-07] MEDS: OXYCODONE HCL SR 40 MG TABLET PO SCH ×2 (10:59→21:27)
--- NOTE | 2017-11-07 11:27 | RADIOLOGY REPORT (SQ) ---
EXAM DESCRIPTION: U/S CHEST COMPLETED DATE/TIME: 11/07/2017 10:55 am REASON FOR STUDY: RIGHT CHEST PLEURX CATH DRAIN SITE COMPARISON: Chest films 11/06/2017, 10/31/2017, 10/20/2017, 10/18/2017 CT chest 10/18/2017 TECHNIQUE: Ultrasound of the right posterior chest wall and right pleural space was performed, imagi ng saved to pac's. Dynamic scanning and static images reviewed. Patient was scanned by both myself as well as the technologist. LIMITATIONS: None. FINDINGS: Along the posterior right chest, a 15 x 10 cm area of chest wall soft tissue swelling is p resent just superior to the skin exit site of the PleurX catheter. There is diffuse interstitial flu id in the tissues without a well-circumscribed seroma or fluid collection. Ultrasound of the right posterior costophrenic sulcus was performed. A moderate to large right subpu lmonic pleural effusion is present. These findings were discussed with Dr. Mena. IMPRESSION: No discrete seroma or fluid collection in the superficial right posterior chest wall sof t tissues. Moderate to large right pleural effusion in the subpulmonic region right hemithorax. TECHNICAL DOCUMENTATION: JOB ID: [id number] [employer]- All Rights Reserved Reading location - IP/workstation name: [email or web address]
--- NOTE | 2017-11-07 12:16 | PDOC PROGRESS REPORT ---
Subjective Progress Note for:: 11/07/17 Subjective:: Pains right Pleurx insertion site and superior to it Reason For Visit: INFECTED RIGHT CHEST TUBE INSERTION SITE, RIGHT Physical Exam Vital Signs: Temp Pulse Resp BP Pulse Ox 97.6 F 79 12 103/59 L 97 11/07/17 07:43 11/07/17 07:43 11/07/17 07:43 11/07/17 07:43 11/07/17 07:43 Intake & Output 11/06/17 11/07/17 11/08/17 06:59 06:59 06:59 Output Total 400 Balance -400 Weight 77.2 kg Exam: Still very tender Right chest Pleurx site with swelling Results Impressions: Chest X-Ray 11/06/17 23:11 IMPRESSION: 1. Overall no significant interval change with persistent tiny right apical pneumothorax with right chest tube in place and moderate right pleural effusion. Chest Ultrasound 11/07/17 00:00 IMPRESSION: No discrete seroma or fluid collection in the superficial right posterior chest wall soft tissues. Moderate to large right pleural effusion in the subpulmonic region right hemithorax. Assessment & Plan - Diagnosis (1) infected right chest tube site Is this a current diagnosis for this admission?: Yes (2) Metastatic breast cancer Is this a current diagnosis for this admission?: Yes (3) Malignant neoplasm of upper-outer quadrant of right female breast Qualifiers: Estrogen receptor status: unspecified Qualified Code(s): C50.411 - Malignant neoplasm of upper-outer quadrant of right female breast Is this a current diagnosis for this admission?: Yes (4) Malignant pleural effusion Is this a current diagnosis for this admission?: Yes (5) Opioid dependence Qualifiers: Substance use status: uncomplicated Qualified Code(s): F11.20 - Opioid dependence, uncomplicated Is this a current diagnosis for this admission?: Yes (6) Pleural effusion Is this a current diagnosis for this admission?: Yes - Time Time Spent with patient: 15-24 minutes - Plan Summary Plan Summary: US reviewed wit Dr Jimenez. No fluid collection but soft tissue swelling Pleurx drained about 900 ccs while pt lying flat per Radiology suggestion. Specimen sent for C/S Await Gm stain C/S of drainage. May need to drain insertion site of pleurx cath and possible replacement? Will ask Dr Preston to evaluate in am Continue pain mx and antibiotics D/W Dr Ahn(Oncologist)
--- NOTE | 2017-11-07 13:14 | PDOC CONSULTATION ---
Consultation Consult Date: 11/07/17 Attending physician:: FERNANDA JONES Consult reason:: pain management metastatic cancer History of Present Illness Admission Date/PCP: 11/07/17 01:07 ANDREA HOPPER MD Patient complains of: Severe pain right posterior chest wall. shortness of breath History of Present Illness: EFFIE LOUIS is a 37 year old female With a known history of metastatic CA of the breast to the pleura, and chronic right malignant pleural effusion Status post insertion of a Pleurx catheter on 10/20/2017 Patient was admitted with severe chest wall pain; right chest wall warm and tender on palpation There was no evidence of an abscess Patient was admitted under general surgery, and Zosyn IV was initiated The pain is still extremely severe difficult to control; starts in the right posterior chest wall radiating to the anterior chest and epigastric area. Patient is currently on OxyContin 40 mg twice daily and intermittent doses of Dilaudid 3 mg IV every 2 hours with minimal improvement Past Medical History Cardiac Medical History: Denies: Coronary Artery Disease, Myocardial Infarction, Hypertension Pulmonary Medical History: Reports: Asthma - TEENAGER, Pneumonia - recently d /c'd 05/10/17 Denies: Bronchitis, Chronic Obstructive Pulmonary Disease (COPD), Tuberculosis Neurological Medical History: Reports: Migraine, Seizures Malignancy Medical History: Reports: Brain Cancer, Breast Cancer - right mastectomy, Lung Cancer GI Medical History: Reports: Gastroesophageal Reflux Disease Denies: Hiatal Hernia Musculoskeltal Medical History: Reports: Fibromyalgia Denies: Arthritis Psychiatric Medical History: Denies: Depression Hematology: Denies: Anemia, Sickle Cell Disease Past Surgical History Past Surgical History: Reports: Amputation, Section - x2, Cholecystectomy, Mastectomy - Right right mastectomy with axillary node dissection, Orthopedic Surgery, Tonsillectomy, Tubal Ligation, Vascular Surgery - Left chest wall port Social History Lives with: Family Smoking Status: Never Smoker Frequency of Alcohol Use: None Hx Recreational Drug Use: No Drugs: None Hx Prescription Drug Abuse: No - Advance Directive Resuscitation Status: Full Code Family History Family History: DM Parental Family History Reviewed: Yes Children Family History Reviewed: Yes Sibling(s) Family History Reviewed.: Yes Medication/Allergy Home Medications: Docusate Sodium [Colace 100 mg Capsule] 100 mg PO BID 11/07/17 Hydrocortisone Acetate [Anusol Hc 25 mg Supp.rect] 1 supp.rect MI BIDP PRN 11/07 Linaclotide [Linzess 145 Mcg Capsule] 145 mcg PO DAILY 11/07/17 Ondansetron HCl [Zofran 4 mg Tablet] 1 tab PO BID 11/07/17 Oxycodone HCl [Oxycontin] 40 mg PO Q12 11/07/17 Promethazine HCl [Phenergan 25 mg Tablet] 25 mg PO Q6HP PRN 11/07/17 Valproic Acid [Depakene] 500 mg PO BID 11/07/17 Venlafaxine HCl ER [Effexor Xr 75 mg Cap.sr] 75 mg PO DAILY 11/07/17 Allergies/Adverse Reactions: Adhesive Bandage * [Adhesive Bandage] Allergy (Mild, Verified 10/18/17 09:52) Generalized rash adhesive tape [Adhesive Tape] Allergy (Mild, Verified 10/18/17 09:52) Generalized rash Review of Systems Constitutional: PRESENT: fatigue, weakness, other - Severe pain Cardiovascular: PRESENT: dyspnea on exertion, orthropnea. ABSENT: chest pain Respiratory: PRESENT: as per HPI, dyspnea Gastrointestinal: PRESENT: abdominal pain. ABSENT: nausea, vomiting - Heart training is so I triaged the patient is [id number] and 9 show no problem we will have his cup of coffee 1 to yes no Musculoskeletal: PRESENT: back pain Neurological: PRESENT: convulsions, weakness Physical Exam Vital Signs: Temp Pulse Resp BP Pulse Ox 97.3 F 75 14 101/65 95 11/07/17 12:14 11/07/17 12:14 11/07/17 12:14 11/07/17 12:14 11/07/17 12:14 Intake & Output 11/06/17 11/07/17 11/08/17 00:59 00:59 00:59 Output Total 400 Balance -400 Weight 77.2 kg eneral appearance: PRESENT: mild distress - Secondary to pain Head exam: PRESENT: atraumatic Ear exam: PRESENT: normal external ear exam Mouth exam: PRESENT: dry mucosa Neck exam: ABSENT: carotid bruit, JVD, lymphadenopathy, thyromegaly Respiratory exam: PRESENT: other - Right Pleurx catheter site with warmth, swelling approximately 1 cm above GI/Abdominal exam: PRESENT: normal bowel sounds, soft. ABSENT: distended, guarding, mass, organolmegaly, rebound, tenderness Rectal exam: PRESENT: deferred Extremities exam: PRESENT: full ROM. ABSENT: calf tenderness, clubbing, pedal edema Musculoskeletal exam: PRESENT: ambulatory Neurological exam: PRESENT: alert, awake, oriented to person, oriented to place , oriented to time, oriented to situation, CN II-XII grossly intact. ABSENT: motor sensory deficit Results Laboratory Results: 09/17/17 09/17/17 11/06/17 13:35 13:35 22:41 WBC 11.1 H Hgb 10.8 L Hct 31.6 L Sodium Potassium Chloride Carbon Dioxide Anion Gap BUN Fluid WBC 1302 Fluid RBC 2273 Fluid Seg Neutrophils 3 Fluid Lymphocytes 89 Fluid Monocytes 8 Fluid LDH 225 11/06/17 22:41 WBC Hgb Hct Sodium 139.8 Potassium 4.0 Chloride 106 Carbon Dioxide 26 Anion Gap 8 BUN 5 L Fluid WBC Fluid RBC Fluid Seg Neutrophils Fluid Lymphocytes Fluid Monocytes Fluid LDH Impressions: Chest Ultrasound 11/07/17 00:00 IMPRESSION: No discrete seroma or fluid collection in the superficial right posterior chest wall soft tissues. Moderate to large right pleural effusion in the subpulmonic region right hemithorax. Assessment & Plan - Diagnosis (1) Seizure disorder Is this a current diagnosis for this admission?: Yes (2) Malignant pleural effusion Is this a current diagnosis for this admission?: Yes (3) Metastatic breast cancer Is this a current diagnosis for this admission?: Yes (4) infected right chest tube site Is this a current diagnosis for this admission?: Yes (5) Intractable pain Is this a current diagnosis for this admission?: Yes - Time Time Spent with patient: Continue Zosyn More fluid to be sent for culture and sensitivity; culture been canceled as it was not sent in an appropriate container Continue OxyContin and intermittent doses of Dilaudid initiated by Dr. Ahn If pain is not relieved with Dilaudid RELIGIOUS EDUCATION DIRECTOR pump may be indicated Resume Depakote and Effexor Time Spent: 50 to 70 Minutes - Inpatient Certification Based on my medical assessment, after consideration of the patient's comorbidities, presenting symptoms, or acuity I expect that the services needed warrant INPATIENT care.: Yes I certify that my determination is in accordance with my understanding of Medicare's requirements for reasonable and necessary INPATIENT services [42 CFR 412.3e].: Yes Medical Necessity: Need for Pain Control
--- NOTE | 2017-11-07 13:17 | RADIOLOGY REPORT (SQ) ---
EXAM DESCRIPTION: CHEST SINGLE VIEW COMPLETED DATE/TIME: 11/07/2017 12:26 pm REASON FOR STUDY: pleura vac COMPARISON: 11/06/2017, 10/31/2017 EXAM PARAMETERS: NUMBER OF VIEWS: One view. TECHNIQUE: Single frontal radiographic view of the chest acquired. RADIATION DOSE: NA LIMITATIONS: None. FINDINGS: LUNGS AND PLEURA: Right PleurX catheter in place. Slight decrease in the right pleural ef fusion compared to 11/06/2017. The small amount of right pleural space air has near completely resolv ed, with trace apical pneumothorax today. There is persistent right basilar consolidation likely atelectasis. Pneumonia could not be excluded. This is similar compared to previous studies. Left hemithorax unremarkable. MEDIASTINUM AND HILAR STRUCTURES: No masses. Contour normal. HEART AND VASCULAR STRUCTURES: Heart normal in size. Normal vasculature. BONES: No acute findings. HARDWARE: Right PleurX catheter unchanged. Left-sided permanent central line tip superior vena cava OTHER: No other significant finding. IMPRESSION: Decrease in right pleural effusion and right pneumothorax compared to 11/06/2017. TECHNICAL DOCUMENTATION: JOB ID: [id number] [employer]- All Rights Reserved Reading location - IP/workstation name: [email or web address]
[2017-11-07] MEDS ORDERED: DEXAMETHASONE SOD PHOS INJ 10 MG/1 ML VIAL IV ONE (16:05)
[2017-11-07] MEDS: HALOPERIDOL LACTATE INJ 5 MG/1 ML VIAL IV PRN ×2 (16:24→21:28)
[2017-11-07] MEDS: PROMETHAZINE HCL INJ 25 MG/1 ML VIAL IV PRN ×2 (16:24→21:28)
[2017-11-07] MEDS: LUBIPROSTONE 24 MCG CAPSULE PO SCH (18:00)
[2017-11-07] MEDS ORDERED: ONDANSETRON 4 MG TAB.RAPDIS PO SCH (18:00)
[2017-11-07] MEDS: DOCUSATE SODIUM 100 MG CAPSULE PO SCH (18:00)
[2017-11-07] MEDS ORDERED: (PENDING PHARMACY ID) (Valproic Acid [Depakene] 500 MG) PO SCH (18:00)
--- NOTE | 2017-11-07 18:55 | RADIOLOGY REPORT (SQ) ---
EXAM DESCRIPTION: KUB/ABDOMEN (SINGLE VIEW) COMPLETED DATE/TIME: 11/07/2017 6:45 pm REASON FOR STUDY: abdominal pain COMPARISON: 05/09/2017 NUMBER OF VIEWS: One view. TECHNIQUE: Supine radiographic image of the abdomen acquired. LIMITATIONS: None. FINDINGS: BOWEL GAS PATTERN: Normal bowel gas pattern. No dilated loops. CALCIFICATIONS: No suspicious calcifications. SOFT TISSUES: No gross mass or suggestion of organomegaly. HARDWARE: None in the abdomen. BONES: No acute fracture. No worrisome bone lesions. OTHER: No other significant finding. IMPRESSION: NO RADIOGRAPHIC EVIDENCE FOR ACUTE ABDOMINAL DISEASE. TECHNICAL DOCUMENTATION: JOB ID: [id number] [employer]- All Rights Reserved Reading location - IP/workstation name: [email or web address]
[2017-11-07] MEDS ORDERED: NA PHOS,M-B/NA PHOS,DI-BA (ADULT) 133 ML ENEMA PR PRN (20:15)
[2017-11-07] MEDS ORDERED: LACTULOSE SYRUP 20 GM/30 ML UDCUP PO ONE (20:15)
[2017-11-07] MEDS: DIVALPROEX SODIUM 250 MG TABLET.DR PO SCH (21:27)
[2017-11-08] MEDS: PIPERACILLIN SODIUM/TAZOBACTAM 3.375 GM in NORMAL SALINE 100 ML IV SCH ×4 (03:48→21:21)
[2017-11-08] MEDS: NORMAL SALINE 1000 ML 1,000 ML IV PRN ×2 (06:50→17:39)
[2017-11-08 07:25] LABS: HEMATOCRIT 29.2 % (36.0-47.0); MEAN CORPUSCULAR HEMOGLOBIN 34.5 pg (27.0-33.4); MEAN CORPUSCULAR HGB CONC 34.1 g/dL (32.0-36.0); MEAN CORPUSCULAR VOLUME 101 fl (80-97); PLATELET COUNT 292 10^3/uL (150-450); RED BLOOD COUNT 2.88 10^6/uL (3.72-5.28); RED CELL DISTRIBUTION WIDTH 14.5 % (11.5-14.0); WHITE BLOOD COUNT 13.7 10^3/uL (4.0-10.5)
[2017-11-08 07:31] LABS: ANION GAP 9 (5-19); BLOOD UREA NITROGEN 5 mg/dL (7-20); CALCIUM 8.7 mg/dL (8.4-10.2); CARBON DIOXIDE 27 mmol/L (22-30); CHLORIDE 103 mmol/L (98-107); GLUCOSE 91 mg/dL (75-110); POTASSIUM 4.5 mmol/L (3.6-5.0); SODIUM 138.5 mmol/L (137-145)
[2017-11-08 07:55] LABS: ABSOLUTE LYMPHOCYTES# (MANUAL) 0.7 10^3/uL (0.5-4.7); ABSOLUTE MONOCYTES # (MANUAL) 0.7 10^3/uL (0.1-1.4); ABSOLUTE NEUTROPHILS# (MANUAL) 12.3 10^3/uL (1.7-8.2); BASOPHILS % (MANUAL) 0 % (0-2); EOSINOPHILS % (MANUAL) 0 % (0-6); LYMPHOCYTES % (MANUAL) 5 % (13-45); MONOCYTES % (MANUAL) 5 % (3-13); SEGMENTED NEUTROPHILS % (MAN) 90 % (42-78); TOTAL CELLS COUNTED 100
[2017-11-08 07:58] LABS: ANISOCYTOSIS SLIGHT; OVALOCYTES SLIGHT; PLATELET COMMENT ADEQUATE; POIKILOCYTOSIS SLIGHT; TEAR DROP CELLS SLIGHT
--- NOTE | 2017-11-08 08:32 | PDOC PROGRESS REPORT ---
Subjective Progress Note for:: 11/08/17 Subjective:: Patient doing slightly better today, still having some pain above that site. Of note, ultrasound did not show any fluid collection. Patient did have fluid removal yesterday by Dr. Mena, 900 mL was removed. Reason For Visit: INFECTED RIGHT CHEST TUBE INSERTION SITE, RIGHT Physical Exam Vital Signs: Temp Pulse Resp BP Pulse Ox 98.8 F 73 18 102/74 93 11/08/17 08:00 11/08/17 08:00 11/08/17 08:00 11/08/17 08:00 11/08/17 08:00 Intake & Output 11/07/17 11/08/17 11/09/17 06:59 06:59 06:59 Intake Total 3433 Output Total 400 1400 Balance -400 2033 Weight 77.2 kg 77.2 kg General appearance: PRESENT: no acute distress, well-developed, well-nourished Head exam: PRESENT: atraumatic, normocephalic Eye exam: PRESENT: conjunctiva pink, EOMI, PERRLA. ABSENT: scleral icterus Ear exam: PRESENT: normal external ear exam Mouth exam: PRESENT: moist, tongue midline Neck exam: ABSENT: carotid bruit, JVD, lymphadenopathy, thyromegaly Respiratory exam: PRESENT: clear to auscultation jose. ABSENT: rales, rhonchi, wheezes Cardiovascular exam: PRESENT: RRR. ABSENT: diastolic murmur, rubs, systolic murmur Pulses: PRESENT: normal dorsalis pedis pul Vascular exam: PRESENT: normal capillary refill GI/Abdominal exam: PRESENT: normal bowel sounds, soft. ABSENT: distended, guarding, mass, organolmegaly, rebound, tenderness Rectal exam: PRESENT: deferred Extremities exam: PRESENT: full ROM. ABSENT: calf tenderness, clubbing, pedal edema Neurological exam: PRESENT: alert, awake, oriented to person, oriented to place , oriented to time, oriented to situation, CN II-XII grossly intact. ABSENT: motor sensory deficit Psychiatric exam: PRESENT: appropriate affect, normal mood. ABSENT: homicidal ideation, suicidal ideation Skin exam: PRESENT: dry, intact, warm. ABSENT: cyanosis, rash Results Laboratory Results: 11/08/17 06:45 11/08/17 06:45 11/08/17 11/08/17 06:45 06:45 WBC 13.7 H RBC 2.88 L Hgb 10.0 L Hct 29.2 L MCV 101 H MCH 34.5 H MCHC 34.1 RDW 14.5 H Plt Count 292 Seg Neutrophils % Not Reportable Lymphocytes % Not Reportable Monocytes % Not Reportable Eosinophils % Not Reportable Basophils % Not Reportable Absolute Neutrophils Not Reportable Absolute Lymphocytes Not Reportable Absolute Monocytes Not Reportable Absolute Eosinophils Not Reportable Absolute Basophils Not Reportable Sodium 138.5 Potassium 4.5 Chloride 103 Carbon Dioxide 27 Anion Gap 9 BUN 5 L Creatinine 0.46 L Est GFR ( Amer) > 60 Est GFR (Non-Af Amer) > 60 Glucose 91 Calcium 8.7 Impressions: Chest Ultrasound 11/07/17 00:00 IMPRESSION: No discrete seroma or fluid collection in the superficial right posterior chest wall soft tissues. Moderate to large right pleural effusion in the subpulmonic region right hemithorax. Chest X-Ray 11/07/17 00:00 IMPRESSION: Decrease in right pleural effusion and right pneumothorax compared to 11/06/2017. KUB X-Ray 11/07/17 15:47 IMPRESSION: NO RADIOGRAPHIC EVIDENCE FOR ACUTE ABDOMINAL DISEASE. Assessment & Plan - Diagnosis (1) infected right chest tube site Is this a current diagnosis for this admission?: Yes Plan: May be superinfection of the skin, no abscess noted. No plan for surgery. Continue with antibiotics. (2) Malignant pleural effusion Is this a current diagnosis for this admission?: Yes Plan: Continue with current fluid removal plan. (3) Metastatic breast cancer Is this a current diagnosis for this admission?: Yes Plan: Just started IV chemotherapy as an outpatient we need to continue this. (4) Pain, neoplasm-related Is this a current diagnosis for this admission?: Yes Plan: Continue with current pain regimen. - Time Time Spent with patient: 35 or more minutes - Inpatient Certification Based on my medical assessment, after consideration of the patient's comorbidities, presenting symptoms, or acuity I expect that the services needed warrant INPATIENT care.: Yes I certify that my determination is in accordance with my understanding of Medicare's requirements for reasonable and necessary INPATIENT services [42 CFR 412.3e].: Yes Medical Necessity: Need for Pain Control, Need for IV Antibiotics
[2017-11-08] MEDS ORDERED: (PENDING PHARMACY ID) (Linaclotide 145 MCG) PO SCH (10:00)
[2017-11-08] MEDS: DIVALPROEX SODIUM 250 MG TABLET.DR PO SCH ×2 (11:07→21:21)
[2017-11-08] MEDS: LUBIPROSTONE 24 MCG CAPSULE PO SCH ×2 (11:07→17:34)
[2017-11-08] MEDS: DOCUSATE SODIUM 100 MG CAPSULE PO SCH ×2 (11:07→17:34)
[2017-11-08] MEDS: VENLAFAXINE HCL 75 MG CAP.SR.24H PO SCH (11:08)
[2017-11-08] MEDS: OXYCODONE HCL SR 40 MG TABLET PO SCH (11:08)
[2017-11-08] MEDS: HALOPERIDOL LACTATE INJ 5 MG/1 ML VIAL IV PRN (11:13)
--- NOTE | 2017-11-08 18:42 | PDOC PROGRESS REPORT ---
Subjective Progress Note for:: 11/08/17 Subjective:: improved decreased pain and vomiting Reason For Visit: INFECTED RIGHT CHEST TUBE INSERTION SITE, RIGHT Physical Exam Vital Signs: Temp Pulse Resp BP Pulse Ox 98.4 F 78 14 107/68 98 11/08/17 16:37 11/08/17 16:37 11/08/17 16:37 11/08/17 16:37 11/08/17 16:37 Intake & Output 11/07/17 11/08/17 11/09/17 00:59 00:59 00:59 Intake Total 1650 3583 Output Total 800 1008 Balance 850 2575 Weight 77.2 kg 77.2 kg General appearance: PRESENT: mild distress Head exam: PRESENT: atraumatic, normocephalic Eye exam: PRESENT: conjunctiva pink, EOMI, PERRLA. ABSENT: scleral icterus Neck exam: ABSENT: carotid bruit, JVD, lymphadenopathy, thyromegaly Respiratory exam: PRESENT: chest wall tenderness - and swelling at site pleur-x catheter, decreased breath sounds - rt lower lung field. ABSENT: accessory muscle use, rhonchi, wheezes Cardiovascular exam: PRESENT: RRR. ABSENT: diastolic murmur, rubs, systolic murmur GI/Abdominal exam: PRESENT: normal bowel sounds, soft. ABSENT: distended, guarding, mass, organolmegaly, rebound, tenderness Extremities exam: PRESENT: full ROM. ABSENT: calf tenderness, joint swelling, tenderness Neurological exam: PRESENT: alert, awake, oriented to person, oriented to place , oriented to time, oriented to situation, CN II-XII grossly intact. ABSENT: motor sensory deficit Results Laboratory Results: 11/08/17 06:45 11/08/17 06:45 11/08/17 11/08/17 06:45 06:45 WBC 13.7 H RBC 2.88 L Hgb 10.0 L Hct 29.2 L MCV 101 H MCH 34.5 H MCHC 34.1 RDW 14.5 H Plt Count 292 Seg Neutrophils % Not Reportable Lymphocytes % Not Reportable Monocytes % Not Reportable Eosinophils % Not Reportable Basophils % Not Reportable Absolute Neutrophils Not Reportable Absolute Lymphocytes Not Reportable Absolute Monocytes Not Reportable Absolute Eosinophils Not Reportable Absolute Basophils Not Reportable Sodium 138.5 Potassium 4.5 Chloride 103 Carbon Dioxide 27 Anion Gap 9 BUN 5 L Creatinine 0.46 L Est GFR ( Amer) > 60 Est GFR (Non-Af Amer) > 60 Glucose 91 Calcium 8.7 Impressions: Chest Ultrasound 11/07/17 00:00 IMPRESSION: No discrete seroma or fluid collection in the superficial right posterior chest wall soft tissues. Moderate to large right pleural effusion in the subpulmonic region right hemithorax. Chest X-Ray 11/07/17 00:00 IMPRESSION: Decrease in right pleural effusion and right pneumothorax compared to 11/06/2017. KUB X-Ray 11/07/17 15:47 IMPRESSION: NO RADIOGRAPHIC EVIDENCE FOR ACUTE ABDOMINAL DISEASE. Assessment & Plan - Diagnosis (1) Seizure disorder Is this a current diagnosis for this admission?: Yes (2) Malignant pleural effusion Is this a current diagnosis for this admission?: Yes (3) Metastatic breast cancer Is this a current diagnosis for this admission?: Yes (4) infected right chest tube site Is this a current diagnosis for this admission?: Yes (5) Intractable pain Is this a current diagnosis for this admission?: Yes - Time Time Spent with patient: will d/c patient in am if she remains stable Time Spent with patient: 25-34 minutes
--- NOTE | 2017-11-08 19:44 | PDOC PROGRESS REPORT ---
Subjective Progress Note for:: 11/08/17 Subjective:: This is a 37-year-old female with metastatic breast cancer and persistent malignant pleural effusion. She is status post Pleurx catheter placement approximately 3 weeks ago. She began having pain at the Pleurx catheter site after a chemotherapy treatment. The patient reports that her pain is improving. The redness and swelling are also improving. The patient denies any shortness of breath, nausea, vomiting, fevers, chills, dizziness, orthostasis, melena, hematochezia, hematemesis, blurry vision. Reason For Visit: INFECTED RIGHT CHEST TUBE INSERTION SITE, RIGHT Physical Exam Vital Signs: Temp Pulse Resp BP Pulse Ox 99.4 F 77 15 107/58 L 97 11/08/17 12:00 11/08/17 12:00 11/08/17 12:00 11/08/17 12:00 11/08/17 12:00 Intake & Output 11/07/17 11/08/17 11/09/17 06:59 06:59 06:59 Intake Total 3433 Output Total 400 1400 8 Balance -400 2033 -8 Weight 77.2 kg 77.2 kg General appearance: PRESENT: no acute distress Head exam: PRESENT: atraumatic, normocephalic Eye exam: PRESENT: EOMI, PERRLA. ABSENT: scleral icterus Mouth exam: PRESENT: neck supple Neck exam: ABSENT: lymphadenopathy, meningismus, tenderness, thyromegaly, tracheal deviation Respiratory exam: PRESENT: chest wall tenderness - At Pleurx catheter insertion site., clear to auscultation jose Cardiovascular exam: PRESENT: RRR Pulses: PRESENT: normal radial pulses GI/Abdominal exam: PRESENT: soft. ABSENT: distended, tenderness Neurological exam: PRESENT: alert, awake, oriented to person, oriented to place , oriented to time, oriented to situation, CN II-XII grossly intact. ABSENT: motor sensory deficit Psychiatric exam: ABSENT: agitated, anxious Skin exam: PRESENT: erythema - Mild erythema at Pleurx insertion site. Results Laboratory Results: 11/08/17 06:45 11/08/17 06:45 11/08/17 11/08/17 06:45 06:45 WBC 13.7 H RBC 2.88 L Hgb 10.0 L Hct 29.2 L MCV 101 H MCH 34.5 H MCHC 34.1 RDW 14.5 H Plt Count 292 Seg Neutrophils % Not Reportable Lymphocytes % Not Reportable Monocytes % Not Reportable Eosinophils % Not Reportable Basophils % Not Reportable Absolute Neutrophils Not Reportable Absolute Lymphocytes Not Reportable Absolute Monocytes Not Reportable Absolute Eosinophils Not Reportable Absolute Basophils Not Reportable Sodium 138.5 Potassium 4.5 Chloride 103 Carbon Dioxide 27 Anion Gap 9 BUN 5 L Creatinine 0.46 L Est GFR ( Amer) > 60 Est GFR (Non-Af Amer) > 60 Glucose 91 Calcium 8.7 Impressions: Chest Ultrasound 11/07/17 00:00 IMPRESSION: No discrete seroma or fluid collection in the superficial right posterior chest wall soft tissues. Moderate to large right pleural effusion in the subpulmonic region right hemithorax. Chest X-Ray 11/07/17 00:00 IMPRESSION: Decrease in right pleural effusion and right pneumothorax compared to 11/06/2017. KUB X-Ray 11/07/17 15:47 IMPRESSION: NO RADIOGRAPHIC EVIDENCE FOR ACUTE ABDOMINAL DISEASE. Assessment & Plan - Diagnosis (1) Malignant pleural effusion Is this a current diagnosis for this admission?: Yes (2) infected right chest tube site Is this a current diagnosis for this admission?: Yes - Plan Summary Plan Summary: This is a 37-year-old female with erythema and pain at the right Pleurx insertion site. I have personally examined the patient with ultrasound. There is no drainable fluid collection present. I believe her erythema can be treated with antibiotics. I would continue to use the Pleurx catheter for drainage of her malignant pleural effusion. I will continue to follow this patient closely with you.
[2017-11-09] MEDS: OXYCODONE HCL SR 40 MG TABLET PO SCH ×3 (01:12→22:07)
[2017-11-09] MEDS: PIPERACILLIN SODIUM/TAZOBACTAM 3.375 GM in NORMAL SALINE 100 ML IV SCH ×4 (03:00→20:51)
[2017-11-09] MEDS: HYDROMORPHONE HCL INJ/PF 2 MG/ML AMPULE IV PRN ×5 (05:16→20:51)
[2017-11-09] MEDS: NORMAL SALINE 1000 ML 1,000 ML IV PRN (05:16)
[2017-11-09] MEDS: VENLAFAXINE HCL 75 MG CAP.SR.24H PO SCH (09:26)
[2017-11-09] MEDS: LUBIPROSTONE 24 MCG CAPSULE PO SCH ×2 (09:27→17:59)
[2017-11-09] MEDS: DIVALPROEX SODIUM 250 MG TABLET.DR PO SCH ×2 (09:28→22:07)
[2017-11-09] MEDS: DOCUSATE SODIUM 100 MG CAPSULE PO SCH ×2 (09:28→17:59)
[2017-11-09] MEDS: PROMETHAZINE HCL INJ 25 MG/1 ML VIAL IV PRN (15:44)
[2017-11-09] MEDS: HALOPERIDOL LACTATE INJ 5 MG/1 ML VIAL IV PRN (15:44)
--- NOTE | 2017-11-09 17:09 | PDOC PROGRESS REPORT ---
Subjective Progress Note for:: 11/09/17 Subjective:: still complaining f pain in right post chest wall vomiting is slighly improved patient looks more comfortable Reason For Visit: INFECTED RIGHT CHEST TUBE INSERTION SITE, RIGHT Physical Exam Vital Signs: Temp Pulse Resp BP Pulse Ox 98.4 F 79 16 119/78 99 11/09/17 16:00 11/09/17 16:00 11/09/17 16:00 11/09/17 16:00 11/09/17 16:00 Intake & Output 11/08/17 11/09/17 11/10/17 00:59 00:59 00:59 Intake Total 1650 3583 2109 Output Total 800 1008 Balance 850 2575 2109 Weight 77.2 kg 83.3 kg General appearance: PRESENT: mild distress Head exam: PRESENT: atraumatic, normocephalic Eye exam: PRESENT: conjunctiva pink, EOMI, PERRLA. ABSENT: scleral icterus Neck exam: ABSENT: carotid bruit, JVD, lymphadenopathy, thyromegaly Respiratory exam: PRESENT: chest wall tenderness - and swelling at site pleur-x catheter, decreased breath sounds - rt lower lung field. ABSENT: accessory muscle use, rhonchi, wheezes Cardiovascular exam: PRESENT: RRR. ABSENT: diastolic murmur, rubs, systolic murmur GI/Abdominal exam: PRESENT: normal bowel sounds, soft. ABSENT: distended, guarding, mass, organolmegaly, rebound, tenderness Extremities exam: PRESENT: full ROM. ABSENT: calf tenderness, joint swelling, tenderness Neurological exam: PRESENT: alert, awake, oriented to person, oriented to place , oriented to time, oriented to situation, CN II-XII grossly intact. ABSENT: motor sensory deficit Results Laboratory Results: 11/08/17 06:45 11/08/17 06:45 Impressions: Chest Ultrasound 11/07/17 00:00 IMPRESSION: No discrete seroma or fluid collection in the superficial right posterior chest wall soft tissues. Moderate to large right pleural effusion in the subpulmonic region right hemithorax. Chest X-Ray 11/07/17 00:00 IMPRESSION: Decrease in right pleural effusion and right pneumothorax compared to 11/06/2017. KUB X-Ray 11/07/17 15:47 IMPRESSION: NO RADIOGRAPHIC EVIDENCE FOR ACUTE ABDOMINAL DISEASE. Assessment & Plan - Diagnosis (1) Seizure disorder Is this a current diagnosis for this admission?: Yes (2) Malignant pleural effusion Is this a current diagnosis for this admission?: Yes (3) Metastatic breast cancer Is this a current diagnosis for this admission?: Yes (4) infected right chest tube site Is this a current diagnosis for this admission?: Yes Plan: site above chest tube is now fluctuent will order US to exclude an abscess (5) Intractable pain Is this a current diagnosis for this admission?: Yes (6) Pleural drain infection Is this a current diagnosis for this admission?: Yes Plan: with MSSA staph in pleural fluid continue zosyn Patient will be discharged on keflex - Time Time Spent with patient: patiient may be discharged home tomorrow if clinically stable Time Spent with patient: 25-34 minutes
--- NOTE | 2017-11-09 17:28 | PDOC PROGRESS REPORT ---
Subjective Progress Note for:: 11/09/17 Subjective:: Still with pains at the pleurx site but more tolerable Reason For Visit: INFECTED RIGHT CHEST TUBE INSERTION SITE, RIGHT Physical Exam Vital Signs: Temp Pulse Resp BP Pulse Ox 98.4 F 79 16 119/78 99 11/09/17 16:00 11/09/17 16:00 11/09/17 16:00 11/09/17 16:00 11/09/17 16:00 Intake & Output 11/08/17 11/09/17 11/10/17 06:59 06:59 06:59 Intake Total 3433 3909 Output Total 1400 8 Balance 2033 3901 Weight 77.2 kg 83.3 kg Exam: Still with tender swelling at the pleurx insertion site . No redness. Results Laboratory Results: 11/08/17 06:45 11/08/17 06:45 Impressions: Chest Ultrasound 11/07/17 00:00 IMPRESSION: No discrete seroma or fluid collection in the superficial right posterior chest wall soft tissues. Moderate to large right pleural effusion in the subpulmonic region right hemithorax. Chest X-Ray 11/07/17 00:00 IMPRESSION: Decrease in right pleural effusion and right pneumothorax compared to 11/06/2017. KUB X-Ray 11/07/17 15:47 IMPRESSION: NO RADIOGRAPHIC EVIDENCE FOR ACUTE ABDOMINAL DISEASE. Assessment & Plan - Diagnosis (1) infected right chest tube site Is this a current diagnosis for this admission?: Yes (2) Metastatic breast cancer Is this a current diagnosis for this admission?: Yes (3) Malignant neoplasm of upper-outer quadrant of right female breast Qualifiers: Estrogen receptor status: unspecified Qualified Code(s): C50.411 - Malignant neoplasm of upper-outer quadrant of right female breast Is this a current diagnosis for this admission?: Yes (4) Malignant pleural effusion Is this a current diagnosis for this admission?: Yes (5) Opioid dependence Qualifiers: Substance use status: uncomplicated Qualified Code(s): F11.20 - Opioid dependence, uncomplicated Is this a current diagnosis for this admission?: Yes (6) Pleural effusion Is this a current diagnosis for this admission?: Yes - Time Time Spent with patient: 15-24 minutes - Plan Summary Plan Summary: Continue IV antibiotics. OK to US pleurx site to see if there is any collection that can be drained.
--- NOTE | 2017-11-09 17:35 | RADIOLOGY REPORT (SQ) ---
EXAM DESCRIPTION: U/S CHEST COMPLETED DATE/TIME: 11/09/2017 5:17 pm REASON FOR STUDY: US Rt post chest wall ? abscess COMPARISON: 11/07/2017 TECHNIQUE: Dynamic and static grayscale images acquired of the localized site of clinical concern an d recorded on PACS. Additional selected color Doppler and spectral images recorded. SITE OF CONCERN: Posterior chest wall LIMITATIONS: None. FINDINGS: SKIN AND SUBCUTANEOUS TISSUES: Indwelling drain. There does appear to be a small accumula tion of fluid in the area of the drain. Measures 2 x 1.2 x 1.5 cm. DEEP SOFT TISSUES/MUSCLES: No masses. No fluid collections. No edema. VASCULAR: No increased or decreased vascularity. No occlusions. OTHER: No other significant finding. IMPRESSION: Small accumulation of fluid measuring 2 x 1.2 x 1.5 cm at the drain site. TECHNICAL DOCUMENTATION: JOB ID: [id number] [employer]- All Rights Reserved Reading location - IP/workstation name: [email or web address]
[2017-11-10] MEDS: HYDROMORPHONE HCL INJ/PF 2 MG/ML AMPULE IV PRN ×2 (01:05→08:09)
[2017-11-10] MEDS: HALOPERIDOL LACTATE INJ 5 MG/1 ML VIAL IV PRN ×2 (05:34→12:36)
[2017-11-10] MEDS: PIPERACILLIN SODIUM/TAZOBACTAM 3.375 GM in NORMAL SALINE 100 ML IV SCH ×2 (05:34→08:16)
[2017-11-10 06:22] LABS: ABSOLUTE EOSINOPHILS # (AUTO) 0.2 10^3/uL (0.0-0.6); ABSOLUTE LYMPHOCYTES (AUTO) 1.4 10^3/uL (0.5-4.7); ABSOLUTE MONOCYTES (AUTO) 0.7 10^3/uL (0.1-1.4); ABSOLUTE NEUT (AUTO) 10.5 10^3/uL (1.7-8.2); BASOPHILS % (AUTO) 0.4 % (0-2); EOSINOPHILS % (AUTO) 1.2 % (0-6); HEMATOCRIT 33.2 % (36.0-47.0); HEMOGLOBIN 11.1 g/dL (12.0-15.5); LYMPHOCYTES % (AUTO) 11.1 % (13-45); MEAN CORPUSCULAR HGB CONC 33.5 g/dL (32.0-36.0); MEAN CORPUSCULAR VOLUME 102 fl (80-97); MONOCYTES % (AUTO) 5.5 % (3-13); PLATELET COUNT 353 10^3/uL (150-450); RED BLOOD COUNT 3.27 10^6/uL (3.72-5.28); RED CELL DISTRIBUTION WIDTH 14.8 % (11.5-14.0); SEGMENTED NEUTROPHILS % (AUTO) 81.8 % (42-78); TOTAL CELLS COUNTED % (AUTO) 100 %; WHITE BLOOD COUNT 12.8 10^3/uL (4.0-10.5)
[2017-11-10] MEDS: OXYCODONE HCL SR 40 MG TABLET PO SCH (09:11)
[2017-11-10] MEDS: VENLAFAXINE HCL 75 MG CAP.SR.24H PO SCH (09:12)
[2017-11-10] MEDS: DOCUSATE SODIUM 100 MG CAPSULE PO SCH (09:12)
[2017-11-10] MEDS: LUBIPROSTONE 24 MCG CAPSULE PO SCH (09:12)
[2017-11-10] MEDS: DIVALPROEX SODIUM 250 MG TABLET.DR PO SCH (09:12)
[2017-11-10] MEDS ORDERED: CEFTRIAXONE 2 GM/D5W RTU 2 GM/50 ML RTUPB IV SCH (12:00)
[2017-11-10 13:17] VITALS: BP 112/71
--- NOTE | 2017-11-10 15:40 | PDOC DISCHARGE SUMMARY ---
General - Admit/Disc Date/PCP Admission Date/Primary Care Provider: 11/07/17 01:07 ANDREA HOPPER MD Discharge Date: 11/10/17 - Discharge Diagnosis (1) Seizure disorder Is this a current diagnosis for this admission?: Yes Summary: Patient was continued on her medications She did not have any recurrent seizures during hospitalization (2) Malignant pleural effusion Is this a current diagnosis for this admission?: Yes (3) Metastatic breast cancer Is this a current diagnosis for this admission?: Yes Summary: Patient is on chemotherapy; she had upon admission intractable nausea vomiting likely secondary to the chemotherapy Symptoms improved with Decadron and Haldol At time of discharge the vomiting has resolved (4) infected right chest tube site Is this a current diagnosis for this admission?: Yes Summary: Patient presented with pain at the site of the Pleurx catheter, there was some mild swelling She was evaluated by general surgery; an ultrasound of the chest wall was performed It was felt that it was very small collection and that I&D was not necessary It was also felt that there was no clear benefit to remove the drain and placed another one Patient was treated during the hospitalization with Zosyn A culture of the pleural fluid grew staph MSSA 11/07/17 15:15 Gram Stain - Final Pleural Fluid Body Fluid Culture - Final Staphylococcus Aureus No Anaerobic Organisms Patient will be discharged on ceftriaxone 2 g IV piggyback daily for 14 days (5) Intractable pain Is this a current diagnosis for this admission?: Yes Summary: The pain was intractable on admission Patient appears very much more comfortable at discharge She is to continue her prior to previous pain regimen (6) Pleural drain infection Is this a current diagnosis for this admission?: Yes Summary: See above Patient will be treated with ceftriaxone IV for 2 weeks - Additional Information Resuscitation Status: Full Code Discharge Diet: As Tolerated Discharge Activity: Activity As Tolerated Prescriptions: Ceftriaxone 2 gm/D5w RTU [Rocephin RTU 2 gm/D5w 50 ml Premix Bag] 2 gm IV DAILY #14 rtupb Home Medications: Docusate Sodium [Colace 100 mg Capsule] 100 mg PO BID 11/07/17 Hydrocortisone Acetate [Anusol Hc 25 mg Supp.rect] 1 supp.rect DC BIDP PRN 11/07 Linaclotide [Linzess 145 Mcg Capsule] 145 mcg PO DAILY 11/07/17 Ondansetron HCl [Zofran 4 mg Tablet] 1 tab PO BID 11/07/17 Oxycodone HCl [Oxycontin] 40 mg PO Q12 11/07/17 Promethazine HCl [Phenergan 25 mg Tablet] 25 mg PO Q6HP PRN 11/07/17 Valproic Acid [Depakene] 500 mg PO BID 11/07/17 Venlafaxine HCl ER [Effexor Xr 75 mg Cap.sr] 75 mg PO DAILY 11/07/17 Ceftriaxone 2 gm/D5w RTU [Rocephin RTU 2 gm/D5w 50 ml Premix Bag] 2 gm IV DAILY #14 rtupb 11/10/17 History of Present Illness Patient complains of: Pain nausea and vomiting History of Present Illness: EFFIE LOUIS is a 37 year old female With a known history of metastatic CA of the breast to the pleura, and chronic right malignant pleural effusion Status post insertion of a Pleurx catheter on 10/20/2017 Patient was admitted with severe chest wall pain; right chest wall warm and tender on palpation There was no evidence of an abscess Patient was admitted under general surgery, and Zosyn IV was initiated The pain is still extremely severe difficult to control; starts in the right posterior chest wall radiating to the anterior chest and epigastric area. Patient is currently on OxyContin 40 mg twice daily and intermittent doses of Dilaudid 3 mg IV every 2 hours with minimal improvement Hospital Course Hospital Course: See above Physical Exam Vital Signs: Temp Pulse Resp BP Pulse Ox 98.3 F 105 H 14 112/71 88 L 11/10/17 12:00 11/10/17 12:00 11/10/17 12:00 11/10/17 12:00 11/10/17 12:00 Intake & Output 11/09/17 11/10/17 11/11/17 00:59 00:59 00:59 Intake Total 3583 2769 875 Output Total 1008 Balance 4845 2769 875 Weight 83.3 kg 84.2 kg General appearance: PRESENT: mild distress Head exam: PRESENT: atraumatic, normocephalic Eye exam: PRESENT: conjunctiva pink, EOMI, PERRLA. ABSENT: scleral icterus Neck exam: ABSENT: carotid bruit, JVD, lymphadenopathy, thyromegaly Respiratory exam: PRESENT: chest wall tenderness - and swelling at site pleur-x catheter, decreased breath sounds - rt lower lung field. ABSENT: accessory muscle use, rhonchi, wheezes Cardiovascular exam: PRESENT: RRR. ABSENT: diastolic murmur, rubs, systolic murmur GI/Abdominal exam: PRESENT: normal bowel sounds, soft. ABSENT: distended, guarding, mass, organolmegaly, rebound, tenderness Extremities exam: PRESENT: full ROM. ABSENT: calf tenderness, joint swelling, tenderness Neurological exam: PRESENT: alert, awake, oriented to person, oriented to place , oriented to time, oriented to situation, CN II-XII grossly intact. ABSENT: motor sensory deficit Results Laboratory Results: 11/10/17 05:29 11/08/17 06:45 11/10/17 05:29 WBC 12.8 H RBC 3.27 L Hgb 11.1 L Hct 33.2 L MCV 102 H MCH 34.0 H MCHC 33.5 RDW 14.8 H Plt Count 353 Seg Neutrophils % 81.8 H Lymphocytes % 11.1 L Monocytes % 5.5 Eosinophils % 1.2 Basophils % 0.4 Absolute Neutrophils 10.5 H Absolute Lymphocytes 1.4 Absolute Monocytes 0.7 Absolute Eosinophils 0.2 Absolute Basophils 0.0 11/07/17 15:15 Pleural Fluid Gram Stain - Final 11/07/17 15:15 Pleural Fluid Body Fluid Culture - Final Staphylococcus Aureus No Anaerobic Organisms Impressions: Chest X-Ray 11/07/17 00:00 IMPRESSION: Decrease in right pleural effusion and right pneumothorax compared to 11/06/2017. KUB X-Ray 11/07/17 15:47 IMPRESSION: NO RADIOGRAPHIC EVIDENCE FOR ACUTE ABDOMINAL DISEASE. Chest Ultrasound 11/09/17 16:18 IMPRESSION: Small accumulation of fluid measuring 2 x 1.2 x 1.5 cm at the drain site. Qualifiers - * PATIENT BEING DISCHARGED WITH ANY OF THE FOLLOWING DIAGNOSIS: No
== END 2017-11-10 16:02 | disposition home health service (06) | DRG 920 ==
LOC: ER 20:34 → EH 11-07 01:07 → 5 11-07 02:35
PROVIDERS: ADMIT Surgery; ATTEND Surgery
DX: T85.79XA Infection and inflammatory reaction due to other internal prosthetic devices, implants and grafts, initial encounter (principal); J91.0 Malignant pleural effusion; F11.20 Opioid dependence, uncomplicated; C50.411 Malignant neoplasm of upper-outer quadrant of right female breast; G89.3 Neoplasm related pain (acute) (chronic); L76.82 Other postprocedural complications of skin and subcutaneous tissue; B95.61 Methicillin susceptible Staphylococcus aureus infection as the cause of diseases classified elsewhere; G40.909 Epilepsy, unspecified, not intractable, without status epilepticus; Z79.899 Other long term (current) drug therapy
CPT/HCPCS: 36415; 36591; 71045; 71046; 74018; 76604; 80048; 80053; 85025; 87070; 87075; 87077; 87186; 87205; 96374; 96375; 96376; 99285; A4300; J0696; J1100; J1170; J1630; J1885; J2405; J2543; J2550; J3490; J7030

== ENCOUNTER 2017-11-11 04:45 | Inpatient (IN) | payer MEDICAID ==
[2017-11-11] MEDS ORDERED: IPRATROPIUM/ALBUTEROL 0.5-2.5 MG/3 ML AMPUL NEB ONE ×4 (05:02→11:28)
--- NOTE | 2017-11-11 05:08 | ER Document Report ---
Doctor's Note Notes: 11/11/17 05:06 I performed a quick triage evaluation the patient. Patient is a 37-year-old female the history of lung cancer. She has a known malignant effusion on the right side. She is recently discharged from hospital after being admitted due to concern for possible infection at the chest tube site. Cultures grew back showing that she had methicillin sensitive staph aureus. She was eventually discharged home on antibiotic. She says that tonight she suddenly started to feel much more short of breath. She currently is tachypneic. She does have wheezing throughout her lung soriano. She did not do any breathing treatments at home.
--- NOTE | 2017-11-11 05:46 | RADIOLOGY REPORT (SQ) ---
EXAM DESCRIPTION: Single view of the chest CLINICAL HISTORY: dyspnea COMPARISON: 11/07/2017 FINDINGS: Single frontal view of the chest. Interval increase in size of right pleural effusion with right basilar opacities. Low lung volumes. Left IJ Mediport. Cardiomediastinal silhouette is stable. No pneumothorax. No acute osseous abnormalities. Right chest tube in place. Upper abdominal soft tissues are unremarkable. IMPRESSION: 1. Interval increase in now moderate right pleural effusion with likely underlying atelectasis or consolidation. Right chest tube in place.
[2017-11-11] MEDS ORDERED: HYDROMORPHONE HCL INJ/PF 2 MG/ML AMPULE IV ONE ×2 (05:51→06:58)
[2017-11-11 06:15] LABS: ABSOLUTE BASOPHILS # (AUTO) 0.1 10^3/uL (0.0-0.2); ABSOLUTE LYMPHOCYTES (AUTO) 0.5 10^3/uL (0.5-4.7); ABSOLUTE MONOCYTES (AUTO) 0.6 10^3/uL (0.1-1.4); ABSOLUTE NEUT (AUTO) 8.7 10^3/uL (1.7-8.2); BASOPHILS % (AUTO) 0.6 % (0-2); EOSINOPHILS % (AUTO) 0.3 % (0-6); HEMATOCRIT 32.8 % (36.0-47.0); HEMOGLOBIN 11.4 g/dL (12.0-15.5); LYMPHOCYTES % (AUTO) 5.4 % (13-45); MEAN CORPUSCULAR HEMOGLOBIN 34.7 pg (27.0-33.4); MEAN CORPUSCULAR HGB CONC 34.8 g/dL (32.0-36.0); MEAN CORPUSCULAR VOLUME 100 fl (80-97); MONOCYTES % (AUTO) 6.4 % (3-13); PLATELET COUNT 322 10^3/uL (150-450); RED BLOOD COUNT 3.29 10^6/uL (3.72-5.28); RED CELL DISTRIBUTION WIDTH 14.6 % (11.5-14.0); SEGMENTED NEUTROPHILS % (AUTO) 87.3 % (42-78); TOTAL CELLS COUNTED % (AUTO) 100 %
[2017-11-11 06:40] LABS: ALANINE AMINOTRANSFERASE 21 U/L (9-52); ALKALINE PHOSPHATASE 60 U/L (38-126); ANION GAP 14 (5-19); ASPARTATE AMINO TRANSFERASE 11 U/L (14-36); BILIRUBIN,DIRECT 0.5 mg/dL (0.0-0.4); BILIRUBIN,TOTAL 0.6 mg/dL (0.2-1.3); BLOOD UREA NITROGEN 2 mg/dL (7-20); CALCIUM 8.9 mg/dL (8.4-10.2); CARBON DIOXIDE 28 mmol/L (22-30); CHLORIDE 97 mmol/L (98-107); GLUCOSE 91 mg/dL (75-110); POTASSIUM 3.4 mmol/L (3.6-5.0); SODIUM 138.9 mmol/L (137-145); TOTAL PROTEIN 5.7 g/dL (6.3-8.2)
--- NOTE | 2017-11-11 07:22 | EKG REPORT ---
SEVERITY:- BORDERLINE ECG - SINUS TACHYCARDIA PROBABLE LEFT ATRIAL ABNORMALITY BORDERLINE T ABNORMALITIES, DIFFUSE LEADS : Confirmed by: Robina Chavez MD 11-Nov-2017 07:22:08
--- NOTE | 2017-11-11 10:03 | PDOC CONSULTATION ---
Consultation Consult Date: 11/11/17 Attending physician:: WAYNE ROSENBAUM Consult reason:: Right pleural effusion History of Present Illness Admission Date/PCP: ANDREA HOPPER MD History of Present Illness: EFFIE LOUIS is a 37 year old female The patient is a with known metastatic disease to the right chest, with breast primary,, status post Pleurx catheter placement by Dr. Seo approximately 3 weeks ago. Patient was hospitalized over the weekend shortness of breath, localized infection at the Pleurx exit site, Gram stain positive for methicillin sensitive staph aureus, treated with IV and p.o. antibiotics with clinical improvement. She was discharged home yesterday, comes back to the emergency department complaining of shortness of breath. Chest x-ray showed worsening right pleural effusion versus atelectasis. Surgery was consulted Past Medical History Cardiac Medical History: Denies: Coronary Artery Disease, Myocardial Infarction, Hypertension Pulmonary Medical History: Reports: Asthma - TEENAGER, Pneumonia - recently d /c'd 05/10/17 Denies: Bronchitis, Chronic Obstructive Pulmonary Disease (COPD), Tuberculosis Neurological Medical History: Reports: Migraine, Seizures Malignancy Medical History: Reports: Brain Cancer, Breast Cancer - right mastectomy, Lung Cancer GI Medical History: Reports: Gastroesophageal Reflux Disease Denies: Hiatal Hernia Musculoskeltal Medical History: Reports: Fibromyalgia Denies: Arthritis Psychiatric Medical History: Denies: Depression Hematology: Denies: Anemia, Sickle Cell Disease Past Surgical History Past Surgical History: Reports: Amputation, Section - x2, Cholecystectomy, Mastectomy - Right right mastectomy with axillary node dissection, Orthopedic Surgery, Tonsillectomy, Tubal Ligation, Vascular Surgery - Left chest wall port Social History Smoking Status: Unknown if Ever Smoked Frequency of Alcohol Use: None Hx Recreational Drug Use: No Drugs: None Hx Prescription Drug Abuse: No Family History Family History: DM Parental Family History Reviewed: Yes Children Family History Reviewed: Yes Sibling(s) Family History Reviewed.: Yes Medication/Allergy Home Medications: Docusate Sodium [Colace 100 mg Capsule] 100 mg PO BID 11/07/17 Hydrocortisone Acetate [Anusol Hc 25 mg Supp.rect] 1 supp.rect MO BIDP PRN 11/07 Linaclotide [Linzess 145 Mcg Capsule] 145 mcg PO DAILY 11/07/17 Ondansetron HCl [Zofran 4 mg Tablet] 1 tab PO BID 11/07/17 Oxycodone HCl [Oxycontin] 40 mg PO Q12 11/07/17 Promethazine HCl [Phenergan 25 mg Tablet] 25 mg PO Q6HP PRN 11/07/17 Valproic Acid [Depakene] 500 mg PO BID 11/07/17 Venlafaxine HCl ER [Effexor Xr 75 mg Cap.sr] 75 mg PO DAILY 11/07/17 Ceftriaxone 2 gm/D5w RTU [Rocephin RTU 2 gm/D5w 50 ml Premix Bag] 2 gm IV DAILY #14 rtupb 11/10/17 Allergies/Adverse Reactions: Adhesive Bandage * [Adhesive Bandage] Allergy (Mild, Verified 10/18/17 09:52) Generalized rash adhesive tape [Adhesive Tape] Allergy (Mild, Verified 10/18/17 09:52) Generalized rash Review of Systems ROS unobtainable: Due to mental status Physical Exam Vital Signs: Temp Pulse Resp BP Pulse Ox 98.1 F 133 H 28 H 113/83 95 11/11/17 04:50 11/11/17 04:50 11/11/17 07:01 11/11/17 07:01 11/11/17 07:01 Intake & Output 11/10/17 11/11/17 11/12/17 06:59 06:59 06:59 Weight 71.6 kg General appearance: PRESENT: other - Moderate distress Head exam: PRESENT: normocephalic Respiratory exam: PRESENT: other - Shortness of breath, decreased lung volumes, mild tachypnea Cardiovascular exam: PRESENT: tachycardia Pulses: PRESENT: normal carotid pulses, normal radial pulses, normal femoral pulses GI/Abdominal exam: PRESENT: other - Soft nontender Rectal exam: PRESENT: deferred Psychiatric exam: PRESENT: agitated, appropriate affect Results Laboratory Results: 11/11/17 06:00 11/11/17 06:00 11/11/17 11/11/17 06:00 06:00 WBC 10.0 RBC 3.29 L Hgb 11.4 L Hct 32.8 L MCV 100 H MCH 34.7 H MCHC 34.8 RDW 14.6 H Plt Count 322 Seg Neutrophils % 87.3 H Lymphocytes % 5.4 L Monocytes % 6.4 Eosinophils % 0.3 Basophils % 0.6 Absolute Neutrophils 8.7 H Absolute Lymphocytes 0.5 Absolute Monocytes 0.6 Absolute Eosinophils 0.0 Absolute Basophils 0.1 Sodium 138.9 Potassium 3.4 L Chloride 97 L Carbon Dioxide 28 Anion Gap 14 BUN 2 L Creatinine 0.49 L Est GFR ( Amer) > 60 Est GFR (Non-Af Amer) > 60 Glucose 91 Calcium 8.9 Total Bilirubin 0.6 AST 11 L ALT 21 Alkaline Phosphatase 60 Total Protein 5.7 L Albumin 3.0 L Impressions: Chest X-Ray 11/11/17 05:02 IMPRESSION: 1. Interval increase in now moderate right pleural effusion with likely underlying atelectasis or consolidation. Right chest tube in place. Assessment & Plan - Diagnosis (1) Malignant pleural effusion Is this a current diagnosis for this admission?: Yes Plan: Patient has a nonfunctioning Pleurx catheter. At bedside I have manipulated the catheter, resecured the fixation stitch, and flush the catheter. All to no avail. Recommendations: 1. Obtain CT scan of the chest to define pathoanatomy; pending findings, patient may require a formal chest tube 2. Discussed the above with Dr. Aurelia Faustin, oncologist (2) Brain metastases Is this a current diagnosis for this admission?: Yes (3) Opioid dependence Qualifiers: Is this a current diagnosis for this admission?: Yes - Time Time Spent: 50 to 70 Minutes
--- NOTE | 2017-11-11 10:06 | Operative Report ---
Operative Report DATE OF SURGERY: 11/11/17 PREOPERATIVE DIAGNOSIS: Persistent right malignant pleural effusion POSTOPERATIVE DIAGNOSIS: Same OPERATION: 1. Flushing of Pleurx catheter. 2. Resecuring of Pleurx catheter chest wall SURGEON: ZHOU SANDERS ANESTHESIA: Local TISSUE REMOVED OR ALTERED: None COMPLICATIONS: None ESTIMATED BLOOD LOSS: Scant INTRAOPERATIVE FINDINGS: Below PROCEDURE: Patient right chest wall was exposed with patient in the semirecumbent position. Chest tube dressing removed. I inspected the chest tube tubing and hooked to the proprietary vacuum chamber. All elements appeared to be in appropriate position. I prepped and draped to the exit site of the catheter, as well as the connection to the tubing. The previously placed stitch was coming out of the patient's skin, so plans were now to we secured the 2. Skin was anesthetized with a 1% plain lidocaine. Using a 3-0 Prolene suture, Veress catheter was resecured to the chest wall. I now amputated the proprietary hub from the Pleurx catheter. I used sterile saline to flush the catheter and there was no evidence of thrombus or fibrin sheath. The proprietary adapter was reconnected, and a new vacuum tubing and chamber were attached to the Pleurx catheter. Adequate suction from the bottle was paid to the tubing and the Pleurx catheter, but despite manipulating the patient body position, there was negligible drainage from the catheter. Sterile dressing was reapplied with a patch 4 x 4's etc. Impression: Pleurx catheter patent but not draining right malignant pleural effusion Plan: 1. Obtain CT scan of the chest, define pathoanatomy and develop treatment plan based on findings.
--- NOTE | 2017-11-11 10:46 | RADIOLOGY REPORT (SQ) ---
EXAM DESCRIPTION: CT CHEST WITH COMPLETED DATE/TIME: 11/11/2017 10:17 am REASON FOR STUDY: eval recurrent effusion COMPARISON: 10/18/2017 TECHNIQUE: CT scan of the chest performed using helical scanning technique with dynamic intravenous contrast injection. Images reviewed with lung, soft tissue and bone windows. Reconstructed coronal and sagittal MPR images reviewed. All images stored on PACS. All CT scanners at this facility use dose modulation, iterative reconstruction, and/or weight based d osing when appropriate to reduce radiation dose to as low as reasonably achievable (ALARA). [facility]: Dose Right [facility]: CareDose [facility]: Dose Right [facility]: Teradose 4D [facility]: Bills Khakis CONTRAST TYPE AND DOSE: 79 cc of Isovue 370 RENAL FUNCTION: Creatinine - 0.49 RADIATION DOSE: CT Rad equipment meets quality standard of care and radiation dose reduction techniq ues were employed. CTDIvol: 18.1 mGy. DLP: 668 mGy-cm. . LIMITATIONS: None. FINDINGS: LUNGS AND PLEURA: Interval placement right chest to since the previous examination. A fe w sSmall foci of air in the periphery of the right mid lower lung may be related to the insertion of the right chest tube. Focal Persistent moderate to large loculated appearing right pleural effusion with mild decrease in size. Mild compressive atelectatic changes in the right lung. New moderate to large area of focal consolidation and patchy areas of airspace disease in the left upper lobe. Thes e findings may be on the basis of pneumonia. Stable bilateral pulmonary nodules and areas of atelect asis in the left lung. No pneumothorax. The central airways are clear. HILAR AND MEDIASTINAL STRUCTURES: No significant interval changes. HEART AND VASCULAR STRUCTURES: No aneurysm or dissection. No central pulmonary emboli. No pericardi al effusion. HARDWARE: Left [id number] catheter, unchanged finding. UPPER ABDOMEN: No significant interval changes. Limited exam. THYROID AND OTHER SOFT TISSUES: The visualized thyroid gland is stable in appearance. BONES: The osseous structures are stable in appearance. OTHER: Right mastectomy and breast reconstruction. IMPRESSION: 1 Interval placement of right chest tube since the previous examination dated 10/18/2017. 2 Persistent moderate to large loculated appearing right pleural effusion with mild decrease in size. Mild compressive atelectatic changes in the right lung. 3. New finding of extensive airspace consolidation and patchy areas of airspace disease in the left upper lobe may represent pneumonia. Correlation suggested. 4. Stable bilateral pulmonary nodules. 5. Additional findings as above. TECHNICAL DOCUMENTATION: JOB ID: [id number] Quality ID # [id number]: Final reports with documentation of one or more dose reduction techniques (e.g., Au tomated exposure control, adjustment of the mA and/or kV according to patient size, use of iterative reconstruction technique) 2010 [employer]- All Rights Reserved Reading location - IP/workstation name: [email or web address]
[2017-11-11] MEDS ORDERED: CEFTRIAXONE 2 GM/D5W RTU 2 GM/50 ML RTUPB IV ONE (10:52)
[2017-11-11] MEDS: LIDOCAINE 1% INJ-PF (10 MG/ML) 30 ML SDV ONE ×2 (11:16→19:28)
--- NOTE | 2017-11-11 11:22 | ER Document Report ---
ED General - General Chief Complaint: Shortness Of Breath Stated Complaint: TROUBLE BREATHING Time Seen by Provider: 11/11/17 05:08 TRAVEL OUTSIDE OF THE [place] IN LAST 30 DAYS: No - HPI Patient complains to provider of: Trouble breathing Notes: Patient coming in with a history of metastatic breast cancer with malignant right-sided pleural effusion and was recently drained with a Pleurx catheter patient had a recent admission because of a slight signs of infection on the site of the catheter placement and was discharged home yesterday return earlier this morning because of increased shortness of breath. Patient was found to be tachypneic tachycardic and wheezing requiring now oxygen at 2 L to keep her oxygenation up. Patient denies any changes in her pain however does have a history of chronic pain. Patient resting stating she feels better after receiving breathing treatment from the nighttime staff - Related Data Allergies/Adverse Reactions: Adhesive Bandage * [Adhesive Bandage] Allergy (Mild, Verified 10/18/17 09:52) Generalized rash adhesive tape [Adhesive Tape] Allergy (Mild, Verified 10/18/17 09:52) Generalized rash Past Medical History - Social History Smoking Status: Unknown if Ever Smoked Family History: DM Patient has suicidal ideation: No Patient has homicidal ideation: No - Past Medical History Cardiac Medical History: Denies: Hx Coronary Artery Disease, Hx Heart Attack, Hx Hypertension Pulmonary Medical History: Reports: Hx Asthma - TEENAGER, Hx Pneumonia - recently d/c'd 05/10/17 Denies: Hx Bronchitis, Hx COPD, Hx Tuberculosis Neurological Medical History: Reports: Hx Migraine, Hx Seizures. Denies: Hx Cerebrovascular Accident Renal/ Medical History: Denies: Hx Peritoneal Dialysis Malignancy Medical History: Reports: Hx Brain Cancer, Hx Breast Cancer - right mastectomy, Hx Lung Cancer GI Medical History: Reports: Hx Gastroesophageal Reflux Disease. Denies: Hx Hiatal Hernia Musculoskeltal Medical History: Denies Hx Arthritis, Reports Hx Fibromyalgia Psychiatric Medical History: Denies: Hx Depression Infectious Medical History: Past Surgical History: Reports: Hx Section - x2, Hx Cholecystectomy, Hx Mastectomy - Right right mastectomy with axillary node dissection, Hx Orthopedic Surgery, Hx Tonsillectomy, Hx Tubal Ligation, Hx Vascular Surgery - Left chest wall port - Immunizations Hx Diphtheria, Pertussis, Tetanus Vaccination: Yes Hx Pneumococcal Vaccination: 04/30/13 Review of Systems - Review of Systems Constitutional: No symptoms reported EENT: No symptoms reported Cardiovascular: No symptoms reported Respiratory: Short of breath, Wheezing Gastrointestinal: No symptoms reported Genitourinary: No symptoms reported Female Genitourinary: No symptoms reported Musculoskeletal: No symptoms reported Skin: No symptoms reported Hematologic/Lymphatic: No symptoms reported Neurological/Psychological: No symptoms reported -: Yes All other systems reviewed and negative Physical Exam - Vital signs Vitals: Temp Pulse Resp BP Pulse Ox 98.1 F 133 H 48 H 140/83 H 98 11/11/17 04:50 11/11/17 04:50 11/11/17 04:50 11/11/17 04:50 11/11/17 04:50 Interpretation: Tachycardic, Tachypneic - General General appearance: Appears well, Alert - HEENT Head: Normocephalic, Atraumatic Eyes: Normal Pupils: PERRL - Respiratory Respiratory status: No respiratory distress Chest status: Nontender Breath sounds: Normal Chest palpation: Normal Notes: Patient with Cordis catheter on the right side and dressing intact there is no blushing of the dressing dressing was not removed - Cardiovascular Rhythm: Regular Heart sounds: Normal auscultation Murmur: No - Abdominal Inspection: Normal Distension: No distension Bowel sounds: Normal Tenderness: Nontender Organomegaly: No organomegaly - Back Back: Normal, Nontender - Extremities General upper extremity: Normal inspection, Nontender, Normal color, Normal ROM , Normal temperature General lower extremity: Normal inspection, Nontender, Normal color, Normal ROM , Normal temperature, Normal weight bearing. No: Spring's sign - Neurological Neuro grossly intact: Yes Cognition: Normal Orientation: AAOx4 Taylor Coma Scale Eye Opening: Spontaneous Taylor Coma Scale Verbal: Oriented Cassidy Coma Scale Motor: Obeys Commands Cassidy Coma Scale Total: 15 Speech: Normal Motor strength normal: LUE, RUE, LLE, RLE Sensory: Normal - Psychological Associated symptoms: Normal affect, Normal mood - Skin Skin Temperature: Warm Skin Moisture: Dry Skin Color: Normal Course - Re-evaluation Re-evalutation: 11/11/17 11:20 Patient coming in with a increasing pleural effusion there is no drainage from the Pleur-evac here in the ER therefore we did contact the oncology team requesting surgical evaluation. The episodes at bedside with no success in drainage of fluid. Requesting CT scan be performed. CT scan was performed showing signs of possible developing of left upper lobe pneumonia and multiloculated pleural effusion on the right. Notified surgeon at this time CT has been performed we will go ahead and give the patient her dose of Rocephin that she has been scheduled at home also will add on a dose of Levaquin. 11/11/17 15:02 Discussed with the hospitalist note that the patient does not want to be admitted by her last primary care physician Dr. Nancy plascencia will admit to medicine service plans for surgery to place a large chest tube on the right side to aid in drainage is loculated pleural effusion present that was set up in the ER to establish the tube hospitalist at bedside evaluate patient - Vital Signs Vital signs: Temp Pulse Resp BP Pulse Ox 98.5 F 133 H 34 H 126/99 H 92 11/11/17 10:43 11/11/17 04:50 11/11/17 14:01 11/11/17 14:01 11/11/17 14:01 - Laboratory Result Diagrams: 11/11/17 06:00 11/11/17 06:00 Laboratory results interpreted by me: 11/11/17 11/11/17 06:00 06:00 RBC 3.29 L Hgb 11.4 L Hct 32.8 L MCV 100 H MCH 34.7 H RDW 14.6 H Seg Neutrophils % 87.3 H Lymphocytes % 5.4 L Absolute Neutrophils 8.7 H Potassium 3.4 L Chloride 97 L BUN 2 L Creatinine 0.49 L Direct Bilirubin 0.5 H AST 11 L Total Protein 5.7 L Albumin 3.0 L Critical Care Note - Critical Care Note Total time excluding time spent on procedures (mins): 35 Comments: Multiple evaluations and discuss treatment management by multiple specialties for patient with a loculated pleural effusion mild hypoxia or respiratory distress and pneumonia with SIRS criteria Discharge - Discharge Clinical Impression: Malignant pleural effusion, Metastatic cancer, SIRS (systemic inflammatory response syndrome) Opioid dependence Qualifiers: Substance use status: uncomplicated Qualified Code(s): F11.20 - Opioid dependence, uncomplicated Pneumonia Qualifiers: Pneumonia type: due to unspecified organism Laterality: right Lung location: unspecified part of lung Qualified Code(s): J18.9 - Pneumonia, unspecified organism Condition: Fair Disposition: ADMITTED INPATIENT Admitting Provider: [facility] Unit Admitted: [facility]
[2017-11-11] MEDS ORDERED: LEVOFLOXACIN 500 MG/D5W RTU 500 MG/100 ML RTUPB IV ONE (11:28)
[2017-11-11] MEDS ORDERED: CEFEPIME 1 GM/D5W RTU 1 GM/50 ML RTUPB IV ONE (12:50)
[2017-11-11] MEDS ORDERED: POTASSIUM CHLORIDE 20 MEQ/15 ML UDCUP PO ONE (12:51)
[2017-11-11] MEDS ORDERED: VANCOMYCIN HCL INJ 1000 MG VIAL IV ONE (12:51)
[2017-11-11] MEDS ORDERED: NORMAL SALINE 1000 ML 1,000 ML IV ONE (13:00)
[2017-11-11] MEDS ORDERED: ACETAMINOPHEN 325 MG TABLET PO PRN (14:13)
[2017-11-11] MEDS: HYDROMORPHONE HCL INJ/PF 2 MG/ML AMPULE IV PRN ×2 (14:44→21:51)
[2017-11-11] MEDS ORDERED: VANCOMYCIN HCL 0 MG in DEXTROSE 5%-WATER 250 ML IV NR (17:45)
[2017-11-11] MEDS ORDERED: LEVALBUTEROL HCL NEB 0.63 MG/3 ML AMPUL NEB PRN (17:45)
[2017-11-11] MEDS ORDERED: PROMETHAZINE HCL 25 MG TABLET PO PRN (17:47)
[2017-11-11] MEDS ORDERED: HYDROCORTISONE ACETATE 25 MG SUPP.RECT PR PRN (17:47)
[2017-11-11] MEDS ORDERED: (PENDING PHARMACY ID) (Ondansetron Hcl [Zofran 4 Mg Tablet] 4 MG) PO SCH (18:00)
--- NOTE | 2017-11-11 18:16 | PDOC H&P ---
History of Present Illness Admission Date/PCP: 11/11/17 13:11 ANDREA HOPPER MD Patient complains of: severe right chest discomfort and difficulty breathing History of Present Illness: EFFIE LOUIS is a 37 year old woman coming in with a history of metastatic breast cancer, including brain mets, with malignant right-sided pleural effusion and was recently drained with a Pleurex catheter. patient had a recent admission because of a slight signs of infection on the site of the catheter placement and was discharged home yesterday, returns earlier this morning to our ER because of increased shortness of breath and severe right- sided pleuritic chest pain. Patient was found to be tachypneic tachycardic and wheezing requiring now oxygen at 2 L to keep her oxygen saturation up. Patient denies any changes in her chronic pain. On my evaluation she is an extreme pain with right pleuritic chest pain, worse with moving and deep breathing. She is much improved after Dilaudid 0.5 mg IV 1. He has been evaluated by the general surgeon who plans to insert a large bore chest tube for a right sided loculated pleural effusion. Also on CT scan she is found to have a right-sided pneumonia possibly bilateral. She is now admitted to the hospitalist service. Past Medical History Cardiac Medical History: Denies: Coronary Artery Disease, Myocardial Infarction, Hypertension Pulmonary Medical History: Reports: Asthma - TEENAGER, Pneumonia - recently d /c'd 05/10/17, Respiratory Failure Denies: Bronchitis, Chronic Obstructive Pulmonary Disease (COPD), Tuberculosis EENT Medical History: Reports: None Neurological Medical History: Reports: Migraine, Seizures Denies: Ischemic CVA Endocrine Medical History: Denies: Diabetes Mellitus Type 1, Diabetes Mellitus Type 2 Renal/ Medical History: Denies: Chronic Kidney Disease Malignancy Medical History: Reports: Breast Cancer - right mastectomy. With metastases to brain and lungs and pleural fluid GI Medical History: Reports: Gastroesophageal Reflux Disease Denies: Hiatal Hernia Musculoskeltal Medical History: Reports: Fibromyalgia Denies: Arthritis Skin Medical History: Reports: Other - Dry skin Denies: Eczema Psychiatric Medical History: Denies: Alcohol Dependency, Depression, Substance Abuse Hematology: Denies: Anemia, Sickle Cell Disease Past Surgical History Past Surgical History: Reports: Amputation, Section - x2, Cholecystectomy, Mastectomy - Right right mastectomy with axillary node dissection, Orthopedic Surgery, Tonsillectomy, Tubal Ligation, Vascular Surgery - Left chest wall port Social History Information Source: Patient, [facility] Records Occupation: Currently unemployed secondary to widely metastatic breast cancer Lives with: Family - She lives with her boyfriend. She has 2 children with her ex- and she is close with him as well., Spouse/Significant other Smoking Status: Never Smoker Frequency of Alcohol Use: None Hx Recreational Drug Use: No Drugs: None Hx Prescription Drug Abuse: No - Advance Directive Resuscitation Status: Do Not Resuscitate Family History Family History: DM, Other - Started to review with patient though Parental Family History Reviewed: Yes Children Family History Reviewed: Yes Sibling(s) Family History Reviewed.: No Medication/Allergy Home Medications: Docusate Sodium [Colace] 100 mg PO BID 11/11/17 Hydrocortisone Acetate [Anusol Hc 25 mg Supp.rect] 1 supp.rect PA BIDP PRN 11/11 Linaclotide [Linzess] 145 mcg PO DAILY 11/11/17 Ondansetron HCl [Zofran 4 mg Tablet] 4 mg PO BID 11/11/17 Oxycodone HCl [Oxycontin] 40 mg PO Q12 11/11/17 Promethazine HCl [Phenergan 25 mg Tablet] 25 mg PO Q6HP PRN 11/11/17 Valproic Acid [Depakene] 500 mg PO Q12 11/11/17 Venlafaxine HCl ER [Effexor Xr 75 mg Cap.sr] 75 mg PO DAILY 11/11/17 Allergies/Adverse Reactions: Adhesive Bandage * [Adhesive Bandage] Allergy (Mild, Verified 10/18/17 09:52) Generalized rash adhesive tape [Adhesive Tape] Allergy (Mild, Verified 10/18/17 09:52) Generalized rash Review of Systems Constitutional: PRESENT: fatigue, weakness Eyes: ABSENT: visual disturbances Ears: ABSENT: hearing changes Nose, Mouth, and Throat: PRESENT: headache(s) Cardiovascular: PRESENT: chest pain, dyspnea on exertion, orthropnea Gastrointestinal: PRESENT: abdominal pain, constipation, heartburn, nausea Genitourinary: ABSENT: dysuria Integumentary: ABSENT: wounds Neurological: PRESENT: weakness. ABSENT: focal weakness, syncope Psychiatric: PRESENT: anxiety, depression Hematologic/Lymphatic: ABSENT: easy bleeding, easy bruising Allergic/Immunologic: ABSENT: seasonal rhinorrhea Physical Exam Vital Signs: Temp Pulse Resp BP Pulse Ox 98.5 F 133 H 34 H 126/99 H 92 11/11/17 10:43 11/11/17 04:50 11/11/17 14:01 11/11/17 14:01 11/11/17 14:01 General appearance: PRESENT: cooperative, mild distress Eye exam: PRESENT: EOMI. ABSENT: conjunctival injection, scleral icterus Ear exam: PRESENT: normal external ear exam Mouth exam: PRESENT: dry mucosa, tongue midline Respiratory exam: PRESENT: decreased breath sounds, wheezes. ABSENT: rales, rhonchi, unlabored Cardiovascular exam: PRESENT: tachycardia. ABSENT: systolic murmur Pulses: PRESENT: normal radial pulses, normal dorsalis pedis pul Vascular exam: ABSENT: pallor GI/Abdominal exam: PRESENT: normal bowel sounds, soft, tenderness. ABSENT: distended, guarding Extremities exam: ABSENT: pedal edema Musculoskeletal exam: PRESENT: normal inspection Neurological exam: PRESENT: awake, oriented to person, oriented to place, oriented to situation, CN II-XII grossly intact Psychiatric exam: PRESENT: anxious, other - Crying Skin exam: PRESENT: dry, intact, warm. ABSENT: skin tears Results Impressions: Chest X-Ray 11/11/17 05:02 IMPRESSION: 1. Interval increase in now moderate right pleural effusion with likely underlying atelectasis or consolidation. Right chest tube in place. Chest CT 11/11/17 09:55 IMPRESSION: 1 Interval placement of right chest tube since the previous examination dated 10/18/2017. 2 Persistent moderate to large loculated appearing right pleural effusion with mild decrease in size. Mild compressive atelectatic changes in the right lung. 3. New finding of extensive airspace consolidation and patchy areas of airspace disease in the left upper lobe may represent pneumonia. Correlation suggested. 4. Stable bilateral pulmonary nodules. 5. Additional findings as above. Assessment & Plan - Diagnosis (1) Sepsis Qualifiers: Sepsis type: sepsis due to unspecified organism Qualified Code(s): A41.9 - Sepsis, unspecified organism Is this a current diagnosis for this admission?: Yes Plan: Patient is admitted with acute hypoxemic respiratory failure. She is found to have bilateral pneumonia on CT of the chest. sHe is tachycardic, hypotensive, has an increased respiratory rate. He was discharged from the hospital yesterday and she is now on vancomycin, Levaquin, cefepime. Has received 2 L of LR in the ER. Her blood pressure has come up and her heart rate has improved and is no longer tachycardic. She is on NS at 150 mL/h. (2) Pneumonia Qualifiers: Pneumonia type: due to unspecified organism Laterality: right Lung location: unspecified part of lung Qualified Code(s): J18.9 - Pneumonia, unspecified organism Is this a current diagnosis for this admission?: Yes Plan: Patient has evidence of pneumonia on her CT chest, bilateral. She was recently discharged from is being treated for healthcare associated pneumonia with vancomycin, cefepime, Levaquin. She is acutely hypoxemic as well. (3) Malignant pleural effusion Is this a current diagnosis for this admission?: Yes Plan: Patient was discharged from the hospital yesterday with a Pleurx drain in place. Unfortunately there was not much drainage. The patient developed worsening pleuritic chest pain and has come back into the hospital. She has been seen by the surgeon who will place a large bore chest tube and that procedure is now pending. sHe has a loculated right-sided pleural effusion. (4) Brain metastases Is this a current diagnosis for this admission?: Yes Plan: Patient has breast cancer metastatic to the brain. She is not symptomatic from this perspective. She is on steroids. She is mentating well. (5) Metastatic breast cancer Plan: Is a patient of Dr. Ahn. She states that she has recently been on a new round of chemo, during which she got sick and chemo is now on hold. She is hoping to be able to continue chemo so that she can live longer for her family. She also tells me that she is very tired of fighting and she does not know how much fight she has left in her. She and I talked about her end-of-life wishes, she has discussed these with her boyfriend and her children's father. Her children are 10 and 13 years old and they both know that she has terminal cancer. She and I talked about a few ideas, things that she can do for her children before she dies, things such as writing letters and writing birthday cards for them for the future. sHe is a DNR/DNI status. (6) Constipation Qualifiers: Constipation type: other constipation type Qualified Code(s): K59.09 - Other constipation Is this a current diagnosis for this admission?: Yes Plan: Patient thinks she has not had a bowel movement in 1 week. Will start senna 2 tabs p.o. twice daily. Will start with a dulcolax suppository. (7) Opioid dependence Qualifiers: Substance use status: uncomplicated Qualified Code(s): F11.20 - Opioid dependence, uncomplicated Is this a current diagnosis for this admission?: Yes Plan: Patient has a diagnosis of fibromyalgia. She is also on OxyContin 40 mg p.o. every 12 hours, I believe that the OxyContin is for cancer related pain. The common will be continued. To be held for somnolence/altered mentation/altered vital signs and MD to be called. (8) Seizure disorder Is this a current diagnosis for this admission?: Yes Plan: Her seizure prophylaxis medication has been restarted. - Time Time Spent: Greater than 70 Minutes Medications reviewed and adjusted accordingly: Yes - Inpatient Certification Based on my medical assessment, after consideration of the patient's comorbidities, presenting symptoms, or acuity I expect that the services needed warrant INPATIENT care.: Yes I certify that my determination is in accordance with my understanding of Medicare's requirements for reasonable and necessary INPATIENT services [42 CFR 412.3e].: Yes Medical Necessity: Need for IV Antibiotics
[2017-11-11] MEDS ORDERED: MAGNESIUM CITRATE 296 ML BOTTLE PO SCH (18:30)
[2017-11-11] MEDS ORDERED: FENTANYL CITRATE INJ/PF 100 MCG/2 ML AMPUL ONE ×2 (18:54)
[2017-11-11] MEDS ORDERED: MIDAZOLAM 2 MG/2 ML INJ ONE (18:55)
[2017-11-11] MEDS ORDERED: PROPOFOL INJ 200 MG/20 ML VIAL IV ONE (18:55)
[2017-11-11] MEDS ORDERED: MAGNESIUM CITRATE 296 ML BOTTLE PO ONE (19:00)
[2017-11-11] MEDS ORDERED: SENNOSIDES/DOCUSATE 8.6-50 MG 1 EACH TABLET PO ONE (19:00)
[2017-11-11 19:23] LABS: BLOOD UREA NITROGEN 2 mg/dL (7-20); CALCIUM 8.7 mg/dL (8.4-10.2); GLUCOSE 83 mg/dL (75-110)
[2017-11-11] MEDS ORDERED: LIDOCAINE 1% INJ-PF (10 MG/ML) 30 ML SDV ONE (19:31)
[2017-11-11 19:39] LABS: CARBON DIOXIDE 31 mmol/L (22-30); CHLORIDE 99 mmol/L (98-107); POTASSIUM 3.8 mmol/L (3.6-5.0)
[2017-11-11 19:40] LABS: ANION GAP 7 (5-19); SODIUM 136.5 mmol/L (137-145)
[2017-11-11] MEDS: IPRATROPIUM/ALBUTEROL 0.5-2.5 MG/3 ML AMPUL NEB SCH (19:54)
[2017-11-11] MEDS ORDERED: PROMETHAZINE HCL INJ 25 MG/1 ML VIAL IV PRN ×2 (20:01)
[2017-11-11] MEDS ORDERED: MORPHINE SULFATE 10 MG/ML INJ IV PRN (20:01)
[2017-11-11] MEDS ORDERED: DIPHENHYDRAMINE HCL 50 MG/ML VIAL IV PRN (20:01)
[2017-11-11] MEDS ORDERED: FENTANYL CITRATE INJ/PF 100 MCG/2 ML AMPUL IV PRN ×3 (20:01)
--- NOTE | 2017-11-11 20:08 | Operative Report ---
Nonrecallable Operative Report DATE OF SURGERY: 11/11/17 PREOPERATIVE DIAGNOSIS: Persisting right malignant pleural effusion; malfunctioning right Pleurx catheter POSTOPERATIVE DIAGNOSIS: Same OPERATION: 1. Removal of right Pleurx cath. 2. Insertion of 32 Nigerien truncated chest tube right pleural space with successful evacuation of 1 L of pleural effusion SURGEON: ZHOU SANDERS ANESTHESIA: LMAC TISSUE REMOVED OR ALTERED: Right pleural fluid removed COMPLICATIONS: None ESTIMATED BLOOD LOSS: Minimal INTRAOPERATIVE FINDINGS: See below PROCEDURE: The patient was taken to the preop holding area to the main operating room, left on the stretcher, placed in the left lateral decubitus position, right arm elevated across her chest. Right Pleurx catheter chest tube dressing removed. Right chest wall was prepped and draped sterile fashion Surgical plan surgical timeout were conducted. The exit site of the Pleurx catheter was anesthetized 1% lidocaine. Suture removed and Pleurx catheter including cuff removed uneventfully. A suitable site for placement of the new chest tube was chosen on the lateral chest wall inferior to the rectus catheter exit site. Skin was anesthetized with 1% lidocaine a small 2 cm transverse incision was made in the skin, María clamps used to separate the subcutaneous tissue and intercostal muscles. The María clamp was penetrated to the chest wall into the right pleural space. The patient developed significant coughing thereafter. An index finger was inserted into the pleural space confirming pleural entry. There were no significant loculations. A 32 Nigerien chest tube was trimmed approximately 6 cm from its end. It was then inserted into the right pleural space, and approximately 1 L of bloody malignant pleural effusion evacuated. Chest tube secured to the skin with 0 Prolene suture. A pursestring was also incorporated in the closure. Dural dressings including Vaseline impregnated gauze 4 x 4's and tape applied. The chest tube [facility] As previously stated approximately 1 L of saline during. Patient was taken to the recovery room in stable condition. Portable upright chest x-ray pending at time dictation
--- NOTE | 2017-11-11 20:25 | RADIOLOGY REPORT (SQ) ---
EXAM DESCRIPTION: CHEST SINGLE VIEW COMPLETED DATE/TIME: 11/11/2017 8:17 pm REASON FOR STUDY: Status post chest tube placement COMPARISON: CT FROM 11/11/2017 AND RADIOGRAPH FROM 11/21/2017 PEER EXAM PARAMETERS: NUMBER OF VIEWS: One view. TECHNIQUE: Single frontal radiographic view of the chest acquired. RADIATION DOSE: NA LIMITATIONS: None. FINDINGS: LUNGS AND PLEURA: Significant interval improvement of right-sided pleural effusion status post placement of chest tube. Possible small pneumothorax at the right lung base. Stable left upper lobe airspace disease. Left pleural spaces grossly clear. . MEDIASTINUM AND HILAR STRUCTURES: No masses. Contour normal. HEART AND VASCULAR STRUCTURES: Heart normal in size. Normal vasculature. BONES: No acute findings. HARDWARE: Interval placement of right-sided chest tube. Apparent removal of prior pleural catheters. Stable appearance of left-sided port. OTHER: No other significant finding. IMPRESSION: SIGNIFICANT INTERVAL IMPROVEMENT OF RIGHT-SIDED PLEURAL EFFUSION STATUS POST CHEST TUBE PLACEMENT. STABLE LEFT UPPER LOBE AIRSPACE DISEASE. TECHNICAL DOCUMENTATION: JOB ID: [id number] [id number]- All Rights Reserved Reading location - IP/workstation name: [email or web address]
[2017-11-11] MEDS: FAMOTIDINE INJ/PF 20 MG/2 ML SDV IV SCH (21:57)
[2017-11-11] MEDS ORDERED: (PENDING PHARMACY ID) (Oxycodone Hcl [Oxycontin] 40 MG) PO SCH (22:00)
[2017-11-11] MEDS ORDERED: GUAIFENESIN 600 MG TABLET.SA PO SCH (22:00)
[2017-11-11] MEDS ORDERED: (PENDING PHARMACY ID) (Valproic Acid [Depakene] 500 MG) PO SCH (22:00)
[2017-11-11] MEDS: GUAIFENESIN 600 MG TABLET.SA PO SCH (22:05)
[2017-11-11] MEDS: VALPROATE SODIUM SYRUP 250 MG/5 ML UDCUP PO SCH (22:05)
[2017-11-12] MEDS: CEFEPIME 2 GM/D5W RTU 2 GM/50 ML RTUPB IV SCH ×3 (00:26→21:27)
[2017-11-12] MEDS: HYDROMORPHONE HCL INJ/PF 2 MG/ML AMPULE IV PRN ×8 (00:27→22:05)
[2017-11-12] MEDS: OXYCODONE HCL SR 40 MG TABLET PO SCH ×3 (00:27→21:26)
[2017-11-12] MEDS: VANCOMYCIN HCL 750 MG in DEXTROSE 5%-WATER 250 ML IV SCH ×3 (00:27→13:25)
[2017-11-12 05:32] LABS: HEMATOCRIT 28.2 % (36.0-47.0); HEMOGLOBIN 9.8 g/dL (12.0-15.5); MEAN CORPUSCULAR HGB CONC 34.8 g/dL (32.0-36.0); MEAN CORPUSCULAR VOLUME 100 fl (80-97); PLATELET COUNT 273 10^3/uL (150-450); RED BLOOD COUNT 2.81 10^6/uL (3.72-5.28); RED CELL DISTRIBUTION WIDTH 14.4 % (11.5-14.0); WHITE BLOOD COUNT 7.9 10^3/uL (4.0-10.5)
[2017-11-12 05:53] LABS: ANION GAP 9 (5-19); BLOOD UREA NITROGEN 2 mg/dL (7-20); CALCIUM 8.9 mg/dL (8.4-10.2); CARBON DIOXIDE 31 mmol/L (22-30); CHLORIDE 100 mmol/L (98-107); GLUCOSE 102 mg/dL (75-110); POTASSIUM 3.8 mmol/L (3.6-5.0); SODIUM 139.6 mmol/L (137-145)
[2017-11-12] MEDS: IPRATROPIUM/ALBUTEROL 0.5-2.5 MG/3 ML AMPUL NEB SCH ×3 (08:08→19:53)
[2017-11-12] MEDS ORDERED: PROMETHAZINE HCL INJ 25 MG/1 ML VIAL ONE ×2 (09:48→18:24)
[2017-11-12] MEDS: VALPROATE SODIUM SYRUP 250 MG/5 ML UDCUP PO SCH ×2 (10:07→21:27)
[2017-11-12] MEDS: ONDANSETRON 4 MG TAB.RAPDIS PO SCH ×2 (10:07→18:14)
[2017-11-12] MEDS: FAMOTIDINE INJ/PF 20 MG/2 ML SDV IV SCH ×2 (10:08→21:27)
[2017-11-12] MEDS: VENLAFAXINE HCL 75 MG CAP.SR.24H PO SCH (10:08)
[2017-11-12] MEDS: GUAIFENESIN 600 MG TABLET.SA PO SCH ×2 (10:09→21:26)
[2017-11-12] MEDS: SENNOSIDES/DOCUSATE 8.6-50 MG 1 EACH TABLET PO SCH ×2 (10:50→18:15)
[2017-11-12] MEDS: LEVOFLOXACIN 750 MG/D5W RTU 750 MG/150 ML RTUPB IV SCH (11:00)
--- NOTE | 2017-11-12 13:53 | PDOC PROGRESS REPORT ---
Subjective Progress Note for:: 11/12/17 Subjective:: Chest tube placed yesterday for pleural effusion, 1L drained. Improved breathing follow tap. Continues to drain serosanginous fluid. Major complaint is pain with only temporary relief. Still requiring supplemental O2. No other complaints. Reason For Visit: [facility]ARE ASSOCIATED PNEUMONIA Physical Exam Vital Signs: Temp Pulse Resp BP Pulse Ox 97.9 F 81 16 113/69 100 11/12/17 11:07 11/12/17 11:07 11/12/17 11:07 11/12/17 11:07 11/12/17 11:07 Intake & Output 11/11/17 11/12/17 11/13/17 06:59 06:59 06:59 Intake Total 1080 118 Output Total 200 Balance 880 118 Weight 71.5 kg General appearance: PRESENT: mild distress, well-developed, well-nourished Mouth exam: PRESENT: moist Respiratory exam: PRESENT: crackles - R>L, decreased breath sounds, rales, unlabored, other - Right sided chest tube in place, draining fluid Cardiovascular exam: PRESENT: +S1, +S2. ABSENT: systolic murmur GI/Abdominal exam: PRESENT: soft. ABSENT: tenderness Neurological exam: PRESENT: alert, awake, CN II-XII grossly intact Psychiatric exam: PRESENT: appropriate affect Results Laboratory Results: 11/12/17 05:00 11/12/17 05:00 11/11/17 11/12/17 11/12/17 18:55 05:00 05:00 WBC 7.9 RBC 2.81 L Hgb 9.8 L Hct 28.2 L MCV 100 H MCH 35.0 H MCHC 34.8 RDW 14.4 H Plt Count 273 Sodium 136.5 L 139.6 Potassium 3.8 3.8 Chloride 99 100 Carbon Dioxide 31 H 31 H Anion Gap 7 9 BUN 2 L 2 L Creatinine 0.42 L 0.47 L Est GFR ( Amer) > 60 > 60 Est GFR (Non-Af Amer) > 60 > 60 Glucose 83 102 Calcium 8.7 8.9 Impressions: Chest CT 11/11/17 09:55 IMPRESSION: 1 Interval placement of right chest tube since the previous examination dated 10/18/2017. 2 Persistent moderate to large loculated appearing right pleural effusion with mild decrease in size. Mild compressive atelectatic changes in the right lung. 3. New finding of extensive airspace consolidation and patchy areas of airspace disease in the left upper lobe may represent pneumonia. Correlation suggested. 4. Stable bilateral pulmonary nodules. 5. Additional findings as above. Chest X-Ray 11/11/17 19:59 IMPRESSION: SIGNIFICANT INTERVAL IMPROVEMENT OF RIGHT-SIDED PLEURAL EFFUSION STATUS POST CHEST TUBE PLACEMENT. STABLE LEFT UPPER LOBE AIRSPACE DISEASE. Assessment & Plan - Diagnosis (1) Malignant pleural effusion Is this a current diagnosis for this admission?: Yes Plan: Likely secondary to breast cancer. S/p chest tube placement on 11/11. Continues to drain. - Will defer to surgery regarding removal of chest tube - Wean down O2 as tolerated - Changed PRN pain meds to Dilaudid 2mg q3 hours PRN (2) Pneumonia Qualifiers: Pneumonia type: due to unspecified organism Laterality: right Lung location: unspecified part of lung Qualified Code(s): J18.9 - Pneumonia, unspecified organism Is this a current diagnosis for this admission?: Yes Plan: Has b/l PNA on CT chest. Treating for HCAP with vancomycin, cefepime, Levaquin - Continues to required supplemental O2, like due to both PNA and pleural effusion - Blood cultures NGTD at 24 hours (3) Brain metastases Is this a current diagnosis for this admission?: Yes Plan: Known metastatic breast cancer (4) Metastatic breast cancer Is this a current diagnosis for this admission?: Yes Plan: Followed by Dr. Ahn. States that she is currently on clinical trial. Discussed that this will need to be held until active infection resolves. Code status is DNR/DNI - Time Time Spent with patient: Less than 15 minutes Within: within 48 hours
[2017-11-12 14:19] LABS: VANCOMYCIN,TROUGH 5.7 ug/mL (5.0-20.0)
--- NOTE | 2017-11-12 16:34 | PDOC PROGRESS REPORT ---
Subjective Progress Note for:: 11/12/17 Subjective:: Pains along right chest tube site Reason For Visit: [facility]OCIATED PNEUMONIA Physical Exam Vital Signs: Temp Pulse Resp BP Pulse Ox 98.5 F 86 19 112/63 100 11/12/17 15:56 11/12/17 15:56 11/12/17 15:56 11/12/17 15:56 11/12/17 15:56 Intake & Output 11/11/17 11/12/17 11/13/17 06:59 06:59 06:59 Intake Total 1080 118 Output Total 200 Balance 880 118 Weight 71.5 kg Exam: Chest tube drained 1200 ccs of serosanguinous fluid Much less tender along original pleurx site Results Laboratory Results: 11/12/17 05:00 11/12/17 05:00 11/11/17 11/12/17 11/12/17 18:55 05:00 05:00 WBC 7.9 RBC 2.81 L Hgb 9.8 L Hct 28.2 L MCV 100 H MCH 35.0 H MCHC 34.8 RDW 14.4 H Plt Count 273 Sodium 136.5 L 139.6 Potassium 3.8 3.8 Chloride 99 100 Carbon Dioxide 31 H 31 H Anion Gap 7 9 BUN 2 L 2 L Creatinine 0.42 L 0.47 L Est GFR ( Amer) > 60 > 60 Est GFR (Non-Af Amer) > 60 > 60 Glucose 83 102 Calcium 8.7 8.9 Impressions: Chest CT 11/11/17 09:55 IMPRESSION: 1 Interval placement of right chest tube since the previous examination dated 10/18/2017. 2 Persistent moderate to large loculated appearing right pleural effusion with mild decrease in size. Mild compressive atelectatic changes in the right lung. 3. New finding of extensive airspace consolidation and patchy areas of airspace disease in the left upper lobe may represent pneumonia. Correlation suggested. 4. Stable bilateral pulmonary nodules. 5. Additional findings as above. Chest X-Ray 11/11/17 19:59 IMPRESSION: SIGNIFICANT INTERVAL IMPROVEMENT OF RIGHT-SIDED PLEURAL EFFUSION STATUS POST CHEST TUBE PLACEMENT. STABLE LEFT UPPER LOBE AIRSPACE DISEASE. Assessment & Plan - Time Time Spent with patient: 15-24 minutes - Plan Summary Plan Summary: Monitor CT drainage .When slows down for possible chemical pleurodesis
[2017-11-12] MEDS: PROMETHAZINE HCL INJ 25 MG/1 ML VIAL IV PRN (21:51)
[2017-11-12] MEDS: VANCOMYCIN HCL 1,500 MG in DEXTROSE 5%-WATER 250 ML IV SCH (22:05)
[2017-11-13] MEDS: HYDROMORPHONE HCL INJ/PF 2 MG/ML AMPULE IV PRN ×6 (03:19→20:37)
[2017-11-13] MEDS: VANCOMYCIN HCL 1,500 MG in DEXTROSE 5%-WATER 250 ML IV SCH ×3 (05:37→22:16)
[2017-11-13 06:32] LABS: HEMOGLOBIN 9.2 g/dL (12.0-15.5); MEAN CORPUSCULAR HEMOGLOBIN 34.5 pg (27.0-33.4); MEAN CORPUSCULAR HGB CONC 34.2 g/dL (32.0-36.0); MEAN CORPUSCULAR VOLUME 101 fl (80-97); PLATELET COUNT 292 10^3/uL (150-450); RED BLOOD COUNT 2.68 10^6/uL (3.72-5.28); RED CELL DISTRIBUTION WIDTH 14.5 % (11.5-14.0)
[2017-11-13] MEDS: IPRATROPIUM/ALBUTEROL 0.5-2.5 MG/3 ML AMPUL NEB SCH ×3 (07:54→19:57)
--- NOTE | 2017-11-13 09:14 | PDOC PROGRESS REPORT ---
Subjective Progress Note for:: 11/13/17 Subjective:: Some chest discomfort but otherwise no complaints. Reason For Visit: HE[facility]CARE ASSOCIATED PNEUMONIA Physical Exam Vital Signs: Temp Pulse Resp BP Pulse Ox 97.9 F 98 17 111/69 92 11/13/17 07:55 11/13/17 07:55 11/13/17 07:55 11/13/17 07:55 11/13/17 07:55 Intake & Output 11/12/17 11/13/17 11/14/17 06:59 06:59 06:59 Intake Total 1080 1499 Output Total 200 200 Balance 880 1299 Weight 71.5 kg 73.9 kg General appearance: PRESENT: no acute distress, cooperative Respiratory exam: PRESENT: other - Decreased breath sounds on the right. Chest tube in place. Draining serosanguineous fluid. Over 1 L output yesterday. Cardiovascular exam: PRESENT: RRR Extremities exam: PRESENT: other - No swelling Results Laboratory Results: 11/13/17 05:25 11/12/17 05:00 11/13/17 05:25 WBC 7.0 RBC 2.68 L Hgb 9.2 L Hct 27.0 L MCV 101 H MCH 34.5 H MCHC 34.2 RDW 14.5 H Plt Count 292 Impressions: Chest CT 11/11/17 09:55 IMPRESSION: 1 Interval placement of right chest tube since the previous examination dated 10/18/2017. 2 Persistent moderate to large loculated appearing right pleural effusion with mild decrease in size. Mild compressive atelectatic changes in the right lung. 3. New finding of extensive airspace consolidation and patchy areas of airspace disease in the left upper lobe may represent pneumonia. Correlation suggested. 4. Stable bilateral pulmonary nodules. 5. Additional findings as above. Chest X-Ray 11/11/17 19:59 IMPRESSION: SIGNIFICANT INTERVAL IMPROVEMENT OF RIGHT-SIDED PLEURAL EFFUSION STATUS POST CHEST TUBE PLACEMENT. STABLE LEFT UPPER LOBE AIRSPACE DISEASE. Assessment & Plan - Diagnosis (1) Malignant pleural effusion Is this a current diagnosis for this admission?: Yes Plan: Output too high for pleurodesis. Will check chest x-ray.
--- NOTE | 2017-11-13 09:57 | RADIOLOGY REPORT (SQ) ---
EXAM DESCRIPTION: CHEST SINGLE VIEW COMPLETED DATE/TIME: 11/13/2017 9:36 am REASON FOR STUDY: Pleural effusion COMPARISON: 11/11/2017. EXAM PARAMETERS: NUMBER OF VIEWS: One view. TECHNIQUE: Single frontal radiographic view of the chest acquired. RADIATION DOSE: NA LIMITATIONS: None. FINDINGS: LUNGS AND PLEURA: Stable right chest tube. Patchy density in the right lung base and smal l right pleural effusion unchanged. Improved aeration in the left upper lobe. MEDIASTINUM AND HILAR STRUCTURES: No masses. Contour normal. HEART AND VASCULAR STRUCTURES: Heart normal in size. Normal vasculature. BONES: No acute findings. HARDWARE: Stable right chest tube. Central line. OTHER: No other significant finding. IMPRESSION: STABLE APPEARANCE OF THE CHEST. SOME IMPROVEMENT IN THE LEFT UPPER LOBE. TECHNICAL DOCUMENTATION: JOB ID: [id number] [email or web address] All Rights Reserved Reading location - IP/workstation name: [email or web address]
[2017-11-13] MEDS: GUAIFENESIN 600 MG TABLET.SA PO SCH ×2 (10:05→22:15)
[2017-11-13] MEDS: CEFEPIME 2 GM/D5W RTU 2 GM/50 ML RTUPB IV SCH ×2 (10:12→22:14)
[2017-11-13] MEDS: FAMOTIDINE INJ/PF 20 MG/2 ML SDV IV SCH ×2 (10:17→22:15)
[2017-11-13] MEDS: ONDANSETRON 4 MG TAB.RAPDIS PO SCH ×2 (10:18→17:27)
[2017-11-13] MEDS: OXYCODONE HCL SR 40 MG TABLET PO SCH ×2 (10:18→22:20)
[2017-11-13] MEDS: SENNOSIDES/DOCUSATE 8.6-50 MG 1 EACH TABLET PO SCH ×2 (10:21→17:27)
[2017-11-13] MEDS: VENLAFAXINE HCL 75 MG CAP.SR.24H PO SCH (10:22)
[2017-11-13] MEDS: VALPROATE SODIUM SYRUP 250 MG/5 ML UDCUP PO SCH ×2 (10:24→22:44)
[2017-11-13] MEDS ORDERED: GUAIFENESIN 600 MG TABLET.SA PO ONE (11:00)
[2017-11-13] MEDS: LEVOFLOXACIN 750 MG/D5W RTU 750 MG/150 ML RTUPB IV SCH (12:04)
--- NOTE | 2017-11-13 12:49 | Progress Note ---
Provider Note Provider Note: Palliative Care consult visit 11/13/17 Appreciate referral for PC with this unfortunate 37 year old female with metastatic breast cancer. This patient is well known to me as I have been following with her at home for the past 8 months or so per referral from Dr. Nguyen. Ms Sanabria has been battling this cancer for about 7 years. She has had periods of feeling well and doing well physically. Then she has had recurrent problems and had to be treated with chemo, etc. When I met her last April, she had just found out from her neurologist that she had brain mets and had been referred for radiation. The radiation went well. At that time she was having a lot of nausea and having to go for IV fluids frequently at Dr. Ch office. After the first of this year, she had several good months for the most part. She was able to go the gym, to date and to do all the activities she wanted with her sons . She is a wonderful mother and an excellent rn icu. She maintains her spirits with the hope that the new Chemo Dr. Ahn has initiated per trial study is going to help her. She is very aware that her disease is worse at this point with the rapidly accumulating pleural fluid and frequent pneumonia. Her studies of her brain a few months ago showed no recurrent brain mets, but I do not think she has had further MRI recently. Her only source of strength is to continue to hope that this treatment will help her as the others have in the past and to focus on today and whatever future she may have. We did discuss her DNR status and she is so sure of this that she wants a copy of the [place] to keep in her purse to be sure she is not intubated. However, if the time comes and she is still convinced that the chemo is going to help her, she likely will change her mind and ask for intubation since she is putting so much leslie in this chemotherapy. But having the DNR ordered for her by the hospitalist here on this admission opens the door for further future talks that I have not been able to have with her recently. She has so ,much to live for and wants to live so badly. She now has a good relationship with her children's father and he is very helpful with them and I am sure will be willing to take the boys when she dies. She has recently visited with her mother in [place]. She has support from sisters who live out of state and has many friends who help her. Ms. Sanabria is very private and will not talk about her fears or feelings until she knows someone well. It appears she is unaware of her prognosis and has made no plans when she talks with hospital staff, but knowing her for these past months, I feel confident that she is very aware of how ill she is and in fact is depending more on her children's father so the children will be used to living with him when that time comes. The subject of continuing her chemo was discussed. She says if she misses too many treatments, she will be discharged from the trial. I feel sure Dr. Ahn will be very open with her about the continuation of this treatment and help her to make good choices for her future. He has been very good with her for many years and she depends on him for her care. I appreciate being able to participate in her care and will be available for her when she goes home.
--- NOTE | 2017-11-13 13:10 | PDOC PROGRESS REPORT ---
Subjective Progress Note for:: 11/13/17 Subjective:: No new issues. Pain better controlled. Reason For Visit: HEALTHCARE ASSOCIATED PNEUMONIA Physical Exam Vital Signs: Temp Pulse Resp BP Pulse Ox 98.1 F 111 H 17 114/86 H 90 L 11/13/17 11:16 11/13/17 11:16 11/13/17 11:16 11/13/17 11:16 11/13/17 11:16 Intake & Output 11/12/17 11/13/17 11/14/17 05:59 05:59 05:59 Intake Total 930 1240 509 Output Total 0 400 1010 Balance 930 840 -501 Weight 157 lb 10.088 oz 162 lb 14.746 oz 162 lb 14.746 oz General appearance: PRESENT: no acute distress, cooperative Respiratory exam: PRESENT: decreased breath sounds - Right side Cardiovascular exam: PRESENT: RRR GI/Abdominal exam: PRESENT: soft Extremities exam: ABSENT: other - No edema Neurological exam: PRESENT: alert Psychiatric exam: PRESENT: appropriate affect Skin exam: PRESENT: warm Results Laboratory Results: 11/13/17 05:25 11/12/17 05:00 11/13/17 05:25 WBC 7.0 RBC 2.68 L Hgb 9.2 L Hct 27.0 L MCV 101 H MCH 34.5 H MCHC 34.2 RDW 14.5 H Plt Count 292 Impressions: Chest CT 11/11/17 09:55 IMPRESSION: 1 Interval placement of right chest tube since the previous examination dated 10/18/2017. 2 Persistent moderate to large loculated appearing right pleural effusion with mild decrease in size. Mild compressive atelectatic changes in the right lung. 3. New finding of extensive airspace consolidation and patchy areas of airspace disease in the left upper lobe may represent pneumonia. Correlation suggested. 4. Stable bilateral pulmonary nodules. 5. Additional findings as above. Chest X-Ray 11/13/17 00:00 IMPRESSION: STABLE APPEARANCE OF THE CHEST. SOME IMPROVEMENT IN THE LEFT UPPER LOBE. Assessment & Plan - Diagnosis (1) Malignant pleural effusion Is this a current diagnosis for this admission?: Yes Plan: Management per surgery. Has a Pleurx in currently that appears to be functioning well. Output would appear to be too high for a pleurodesis. (2) Opioid dependence Qualifiers: Substance use status: uncomplicated Qualified Code(s): F11.20 - Opioid dependence, uncomplicated Is this a current diagnosis for this admission?: Yes (3) Generalized convulsive epilepsy Is this a current diagnosis for this admission?: Yes Plan: History of metastases to the brain, status post radiation therapy, no evidence of recurrence. (4) Metastatic breast cancer Is this a current diagnosis for this admission?: Yes Plan: Management per oncology. Currently enrolled in a trial, but medications have been on hold due to her other ongoing medical issues.
[2017-11-14] MEDS: HYDROMORPHONE HCL INJ/PF 2 MG/ML AMPULE IV PRN ×5 (00:12→16:41)
[2017-11-14 01:16] LABS: APPEARANCE,URINE SLIGHTLY-CLOUDY; BILIRUBIN,URINE NEGATIVE (NEGATIVE); COLOR,URINE YELLOW; GLUCOSE, URINE NEGATIVE (NEGATIVE); KETONES,URINE NEGATIVE (NEGATIVE); LEUKOCYTE ESTERASE,URINE NEGATIVE (NEGATIVE); NITRITE,URINE NEGATIVE (NEGATIVE); PROTEIN,URINE NEGATIVE (NEGATIVE); URINE SPECIFIC GRAVITY 1.005; UROBILINOGEN,URINE NEGATIVE mg/dL (<2.0)
[2017-11-14] MEDS: VANCOMYCIN HCL 1,500 MG in DEXTROSE 5%-WATER 250 ML IV SCH (05:57)
[2017-11-14 06:07] LABS: VANCOMYCIN,TROUGH 19.6 ug/mL (5.0-20.0)
[2017-11-14] MEDS: IPRATROPIUM/ALBUTEROL 0.5-2.5 MG/3 ML AMPUL NEB SCH ×3 (08:01→19:55)
--- NOTE | 2017-11-14 08:26 | RADIOLOGY REPORT (SQ) ---
EXAM DESCRIPTION: CHEST SINGLE VIEW COMPLETED DATE/TIME: 11/14/2017 7:36 am REASON FOR STUDY: f/u effusion COMPARISON: 11/06/2017 EXAM PARAMETERS: NUMBER OF VIEWS: One view. TECHNIQUE: Single frontal radiographic view of the chest acquired. RADIATION DOSE: NA LIMITATIONS: None. FINDINGS: LUNGS AND PLEURA: There has been interval decrease in size of the previously described rig ht pleural effusion with a small pleural effusion being identified on the current study. There are a ssociated densities in the right lower lung field which could represent atelectatic changes or minima l infiltrates. No pneumothorax is seen. There are some ill-defined patchy densities in the left per ihilar region which could represent a developing infiltrate or pulmonary edema. MEDIASTINUM AND HILAR STRUCTURES: No masses. Contour normal. HEART AND VASCULAR STRUCTURES: Heart normal in size. Normal vasculature. BONES: No acute findings. HARDWARE: Left-sided Port-A-Cath is identified with its tip the level of the superior vena cava. Rig ht chest tube is identified projected in the right lower hemithorax. OTHER: No other significant finding. IMPRESSION: Nicolás decrease in size of the right pleural effusion right chest tube without evidence f or pneumothorax. Other findings as noted above TECHNICAL DOCUMENTATION: JOB ID: [id number] [employer]- All Rights Reserved Reading location - IP/workstation name: [email or web address]
[2017-11-14] MEDS: VENLAFAXINE HCL 75 MG CAP.SR.24H PO SCH (09:45)
[2017-11-14] MEDS: FAMOTIDINE INJ/PF 20 MG/2 ML SDV IV SCH (09:45)
[2017-11-14] MEDS: ONDANSETRON 4 MG TAB.RAPDIS PO SCH ×2 (09:48→17:51)
[2017-11-14] MEDS: OXYCODONE HCL SR 40 MG TABLET PO SCH ×2 (09:48→21:35)
[2017-11-14] MEDS: GUAIFENESIN 600 MG TABLET.SA PO SCH ×2 (09:49→21:34)
[2017-11-14] MEDS: SENNOSIDES/DOCUSATE 8.6-50 MG 1 EACH TABLET PO SCH ×2 (09:49→17:50)
[2017-11-14] MEDS: VALPROATE SODIUM SYRUP 250 MG/5 ML UDCUP PO SCH ×2 (09:53→21:34)
[2017-11-14] MEDS: CEFEPIME 2 GM/D5W RTU 2 GM/50 ML RTUPB IV SCH ×2 (09:54→21:34)
[2017-11-14] MEDS: LEVOFLOXACIN 750 MG/D5W RTU 750 MG/150 ML RTUPB IV SCH (11:12)
--- NOTE | 2017-11-14 11:58 | PDOC PROGRESS REPORT ---
Subjective Progress Note for:: 11/14/17 Subjective:: Some burning pain at the right lower chest. Reason For Visit: HEALTHCARE ASSOCIATED PNEUMONIA Physical Exam Vital Signs: Temp Pulse Resp BP Pulse Ox 98.2 F 90 19 110/68 94 11/14/17 07:24 11/14/17 08:01 11/14/17 08:01 11/14/17 07:24 11/14/17 08:01 Intake & Output 11/13/17 11/14/17 11/15/17 06:59 06:59 06:59 Intake Total 1499 2050 Output Total 200 1210 Balance 1299 840 Weight 73.9 kg 73.3 kg General appearance: PRESENT: no acute distress, cooperative Cardiovascular exam: PRESENT: RRR, other - Breath sounds are markedly improved from yesterday. Although still with some decreased breath sounds at the right base. Results Laboratory Results: 11/13/17 05:25 11/14/17 05:45 11/14/17 11/14/17 00:30 05:45 Creatinine 0.63 Est GFR ( Amer) > 60 Est GFR (Non-Af Amer) > 60 Urine Color YELLOW Urine Appearance SLIGHTLY-CLOUDY Urine pH 6.0 Ur Specific [place] 1.005 Urine Protein NEGATIVE Urine Glucose (UA) NEGATIVE Urine Ketones NEGATIVE Urine Blood LARGE H Urine Nitrite NEGATIVE Ur Leukocyte Esterase NEGATIVE Urine WBC (Auto) 1 Urine RBC (Auto) 2 Impressions: Chest CT 11/11/17 09:55 IMPRESSION: 1 Interval placement of right chest tube since the previous examination dated 10/18/2017. 2 Persistent moderate to large loculated appearing right pleural effusion with mild decrease in size. Mild compressive atelectatic changes in the right lung. 3. New finding of extensive airspace consolidation and patchy areas of airspace disease in the left upper lobe may represent pneumonia. Correlation suggested. 4. Stable bilateral pulmonary nodules. 5. Additional findings as above. Chest X-Ray 11/14/17 00:00 IMPRESSION: Nicolás decrease in size of the right pleural effusion right chest tube without evidence for pneumothorax. Other findings as noted above Assessment & Plan - Diagnosis (1) Malignant pleural effusion Is this a current diagnosis for this admission?: Yes Plan: X-rays have improved with decreased pleural effusion on 20 cm of H2O suction. Still with some atelectasis on the right side and still residual pleural effusion on the right side. We will continue suction and continue to encourage pulmonary toilet. We need better better lung expansion and decreased effusion prior to pleurodesis to avoid loculations.
[2017-11-14] MEDS: VANCOMYCIN HCL 1,250 MG in DEXTROSE 5%-WATER 250 ML IV SCH ×2 (14:43→21:34)
--- NOTE | 2017-11-14 15:51 | PDOC PROGRESS REPORT ---
Subjective Progress Note for:: 11/14/17 Subjective:: Complains of occasional pain along the right side of her chest. Causes her breath to catch. Relieved with current medications, but it takes about 20 minutes. Reason For Visit: HEALTHCARE ASSOCIATED PNEUMONIA Physical Exam Vital Signs: Temp Pulse Resp BP Pulse Ox 98.2 F 92 20 116/99 H 95 11/14/17 12:16 11/14/17 14:02 11/14/17 14:02 11/14/17 12:16 11/14/17 14:02 Intake & Output 11/13/17 11/14/17 11/15/17 05:59 05:59 05:59 Intake Total 1240 1859 718 Output Total 400 1010 200 Balance 840 849 518 Weight 162 lb 14.746 oz 161 lb 9.581 oz General appearance: PRESENT: no acute distress Respiratory exam: PRESENT: decreased breath sounds - Right side Cardiovascular exam: PRESENT: RRR GI/Abdominal exam: PRESENT: soft Neurological exam: PRESENT: alert Psychiatric exam: PRESENT: appropriate affect Skin exam: PRESENT: warm Results Laboratory Results: 11/13/17 05:25 11/14/17 05:45 11/14/17 11/14/17 00:30 05:45 Creatinine 0.63 Est GFR ( Amer) > 60 Est GFR (Non-Af Amer) > 60 Urine Color YELLOW Urine Appearance SLIGHTLY-CLOUDY Urine pH 6.0 Ur Specific [place] 1.005 Urine Protein NEGATIVE Urine Glucose (UA) NEGATIVE Urine Ketones NEGATIVE Urine Blood LARGE H Urine Nitrite NEGATIVE Ur Leukocyte Esterase NEGATIVE Urine WBC (Auto) 1 Urine RBC (Auto) 2 Impressions: Chest CT 11/11/17 09:55 IMPRESSION: 1 Interval placement of right chest tube since the previous examination dated 10/18/2017. 2 Persistent moderate to large loculated appearing right pleural effusion with mild decrease in size. Mild compressive atelectatic changes in the right lung. 3. New finding of extensive airspace consolidation and patchy areas of airspace disease in the left upper lobe may represent pneumonia. Correlation suggested. 4. Stable bilateral pulmonary nodules. 5. Additional findings as above. Chest X-Ray 11/14/17 00:00 IMPRESSION: Nicolás decrease in size of the right pleural effusion right chest tube without evidence for pneumothorax. Other findings as noted above Assessment & Plan - Diagnosis (1) Malignant pleural effusion Is this a current diagnosis for this admission?: Yes Plan: Management per surgery. Has a Pleurx in currently that appears to be functioning well. Output would appear to be too high for a pleurodesis. (2) Opioid dependence Qualifiers: Substance use status: uncomplicated Qualified Code(s): F11.20 - Opioid dependence, uncomplicated Is this a current diagnosis for this admission?: Yes (3) Generalized convulsive epilepsy Is this a current diagnosis for this admission?: Yes Plan: History of metastases to the brain, status post radiation therapy, no evidence of recurrence. (4) Metastatic breast cancer Is this a current diagnosis for this admission?: Yes Plan: Management per oncology. Currently enrolled in a trial, but medications have been on hold due to her other ongoing medical issues. (5) Pain of metastatic malignancy Is this a current diagnosis for this admission?: Yes Plan: Probably having significant pleuritic pain. I will try some Indocin to see if that improves her symptoms.
[2017-11-14] MEDS ORDERED: FENTANYL 50 MCG/HR PATCH.TD72 TD SCH (21:00)
[2017-11-14] MEDS: FAMOTIDINE 20 MG TABLET PO SCH (21:34)
[2017-11-14] MEDS: INDOMETHACIN 50 MG CAPSULE PO SCH (23:31)
[2017-11-15] MEDS: FENTANYL CITRATE INJ/PF 100 MCG/2 ML AMPUL IV PRN ×3 (01:00→09:18)
[2017-11-15] MEDS: VANCOMYCIN HCL 1,250 MG in DEXTROSE 5%-WATER 250 ML IV SCH ×3 (06:10→21:08)
[2017-11-15] MEDS: INDOMETHACIN 50 MG CAPSULE PO SCH ×3 (06:47→21:10)
[2017-11-15] MEDS: HYDROMORPHONE HCL INJ/PF 2 MG/ML AMPULE IV PRN (08:28)
--- NOTE | 2017-11-15 08:29 | RADIOLOGY REPORT (SQ) ---
EXAM DESCRIPTION: CHEST 2 VIEWS COMPLETED DATE/TIME: 11/15/2017 8:02 am REASON FOR STUDY: Follow-up atelectasis and pleural effusion. COMPARISON: 11/14/2017 EXAM PARAMETERS: NUMBER OF VIEWS: two views TECHNIQUE: Digital Frontal and Lateral radiographic views of the chest acquired. RADIATION DOSE: NA LIMITATIONS: none FINDINGS: LUNGS AND PLEURA: The previously described small right pleural effusion and associated den sities in the right lower lung field appear essentially unchanged. No pneumothorax is seen. The pre viously described ill-defined patchy densities in the left perihilar region appear more confluent on the current study. Again this could represent a developing infiltrate or pulmonary edema. MEDIASTINUM AND HILAR STRUCTURES: No masses or contour abnormalities. HEART AND VASCULAR STRUCTURES: Heart normal size. No evidence for failure. BONES: No acute findings. HARDWARE: Port-A-Cath is unchanged in position. Right chest tube is again identified projected in th e right lower hemithorax. OTHER: No other significant finding. IMPRESSION: No significant interval change in the previously described small right pleural effusion and associated densities in the right lower lung field. The previously described ill-defined patchy densities in the left perihilar region appear more confluent on the current study and could represent a developing infiltrate or pulmonary edema. No pneumothorax is seen. Other findings as noted above TECHNICAL DOCUMENTATION: JOB ID: [id number] [employer]- All Rights Reserved Reading location - IP/workstation name: [email or web address]
[2017-11-15] MEDS: PROMETHAZINE HCL INJ 25 MG/1 ML VIAL IV PRN ×2 (08:30→18:48)
[2017-11-15] MEDS: IPRATROPIUM/ALBUTEROL 0.5-2.5 MG/3 ML AMPUL NEB SCH ×3 (08:52→20:04)
[2017-11-15] MEDS: OXYCODONE HCL SR 40 MG TABLET PO SCH ×3 (09:16→18:50)
[2017-11-15] MEDS: VENLAFAXINE HCL 75 MG CAP.SR.24H PO SCH ×2 (09:18→18:45)
[2017-11-15] MEDS: FAMOTIDINE 20 MG TABLET PO SCH ×2 (09:19→21:08)
[2017-11-15] MEDS: SENNOSIDES/DOCUSATE 8.6-50 MG 1 EACH TABLET PO SCH ×2 (09:19→18:43)
[2017-11-15] MEDS: ONDANSETRON 4 MG TAB.RAPDIS PO SCH ×2 (09:19→18:52)
[2017-11-15] MEDS: GUAIFENESIN 600 MG TABLET.SA PO SCH ×2 (09:19→21:08)
[2017-11-15] MEDS: VALPROATE SODIUM SYRUP 250 MG/5 ML UDCUP PO SCH ×2 (09:23→21:11)
[2017-11-15] MEDS: CEFEPIME 2 GM/D5W RTU 2 GM/50 ML RTUPB IV SCH ×2 (09:24→21:05)
[2017-11-15] MEDS ORDERED: MORPHINE SULFATE 10 MG/ML INJ IV PRN (09:25)
[2017-11-15] MEDS ORDERED: OXYCODONE HCL IR 5 MG TABLET PO PRN ×2 (09:30→10:00)
--- NOTE | 2017-11-15 10:24 | PDOC PROGRESS REPORT ---
Subjective Progress Note for:: 11/15/17 Subjective:: Feels better, breathing better Reason For Visit: [facility] Physical Exam Vital Signs: Temp Pulse Resp BP Pulse Ox 98.5 F 96 18 100/64 97 11/15/17 07:45 11/15/17 08:54 11/15/17 08:54 11/15/17 07:45 11/15/17 08:54 Intake & Output 11/14/17 11/15/17 11/16/17 06:59 06:59 06:59 Intake Total 2050 918 Output Total 1210 110 Balance 840 808 Weight 73.3 kg 71 kg General appearance: PRESENT: no acute distress Respiratory exam: PRESENT: other - Chest tube site examined. Draining serous fluid; no air leak; less than 100 cc drained overnight in receptacle although exact volume may not be accurate. Results Laboratory Results: 11/13/17 05:25 11/14/17 05:45 Impressions: Chest CT 11/11/17 09:55 IMPRESSION: 1 Interval placement of right chest tube since the previous examination dated 10/18/2017. 2 Persistent moderate to large loculated appearing right pleural effusion with mild decrease in size. Mild compressive atelectatic changes in the right lung. 3. New finding of extensive airspace consolidation and patchy areas of airspace disease in the left upper lobe may represent pneumonia. Correlation suggested. 4. Stable bilateral pulmonary nodules. 5. Additional findings as above. Chest X-Ray 11/15/17 00:00 IMPRESSION: No significant interval change in the previously described small right pleural effusion and associated densities in the right lower lung field. The previously described ill-defined patchy densities in the left perihilar region appear more confluent on the current study and could represent a developing infiltrate or pulmonary edema. No pneumothorax is seen. Other findings as noted above Assessment & Plan - Diagnosis (1) Malignant pleural effusion Is this a current diagnosis for this admission?: Yes Plan: Status post formal chest tube insertion day 4, still draining, no air leak; pulmonary function improved. Chest x-ray shows persisting atelectasis bilateral bases. Recommendations: 1. Change Pleur-evac chamber 2. Increased pulmonary function; education provided. 3. Keep chest tube in until pleural space nearly completely evacuated then plan chemical pleurodesis if oncology in agreement my: This is explained to the patient. (2) Brain metastases Is this a current diagnosis for this admission?: Yes (3) Opioid dependence Qualifiers: Substance use status: uncomplicated Qualified Code(s): F11.20 - Opioid dependence, uncomplicated Is this a current diagnosis for this admission?: Yes
[2017-11-15] MEDS: MORPHINE SULFATE 10 MG/ML INJ IV PRN ×7 (10:29→22:57)
[2017-11-15] MEDS: LEVOFLOXACIN 750 MG/D5W RTU 750 MG/150 ML RTUPB IV SCH (12:11)
--- NOTE | 2017-11-15 14:12 | PDOC PROGRESS REPORT ---
Subjective Progress Note for:: 11/15/17 Subjective:: No complaints today. Reason For Visit: [facility] Physical Exam Vital Signs: Temp Pulse Resp BP Pulse Ox 98.7 F 115 H 18 105/62 90 L 11/15/17 12:00 11/15/17 14:04 11/15/17 14:04 11/15/17 12:00 11/15/17 14:04 Intake & Output 11/14/17 11/15/17 11/16/17 05:59 05:59 05:59 Intake Total 1859 1518 437 Output Total 1010 200 110 Balance 849 1318 327 Weight 161 lb 9.581 oz 156 lb 8.451 oz General appearance: PRESENT: no acute distress Respiratory exam: PRESENT: decreased breath sounds - Right side Cardiovascular exam: PRESENT: RRR GI/Abdominal exam: PRESENT: soft Neurological exam: PRESENT: alert Psychiatric exam: PRESENT: appropriate affect Skin exam: PRESENT: warm Results Laboratory Results: 11/13/17 05:25 11/14/17 05:45 Impressions: Chest CT 11/11/17 09:55 IMPRESSION: 1 Interval placement of right chest tube since the previous examination dated 10/18/2017. 2 Persistent moderate to large loculated appearing right pleural effusion with mild decrease in size. Mild compressive atelectatic changes in the right lung. 3. New finding of extensive airspace consolidation and patchy areas of airspace disease in the left upper lobe may represent pneumonia. Correlation suggested. 4. Stable bilateral pulmonary nodules. 5. Additional findings as above. Chest X-Ray 11/15/17 00:00 IMPRESSION: No significant interval change in the previously described small right pleural effusion and associated densities in the right lower lung field. The previously described ill-defined patchy densities in the left perihilar region appear more confluent on the current study and could represent a developing infiltrate or pulmonary edema. No pneumothorax is seen. Other findings as noted above Assessment & Plan - Diagnosis (1) Malignant pleural effusion Is this a current diagnosis for this admission?: Yes Plan: Management per surgery. Has a Pleurx in currently that appears to be functioning well. (2) Opioid dependence Qualifiers: Substance use status: uncomplicated Qualified Code(s): F11.20 - Opioid dependence, uncomplicated Is this a current diagnosis for this admission?: Yes (3) Generalized convulsive epilepsy Is this a current diagnosis for this admission?: Yes Plan: History of metastases to the brain, status post radiation therapy, no evidence of recurrence. Continue valproate (4) Metastatic breast cancer Is this a current diagnosis for this admission?: Yes Plan: Management per oncology. Currently enrolled in a trial, but medications have been on hold due to her other ongoing medical issues. (5) Pain of metastatic malignancy Is this a current diagnosis for this admission?: Yes Plan: Continue current medications
[2017-11-16] MEDS: OXYCODONE HCL SR 40 MG TABLET PO SCH ×3 (01:09→17:53)
[2017-11-16] MEDS: MORPHINE SULFATE 10 MG/ML INJ IV PRN ×4 (03:42→22:43)
[2017-11-16] MEDS: FENTANYL CITRATE INJ/PF 100 MCG/2 ML AMPUL IV PRN (03:43)
[2017-11-16] MEDS: INDOMETHACIN 50 MG CAPSULE PO SCH ×3 (05:10→22:08)
[2017-11-16] MEDS: VANCOMYCIN HCL 1,250 MG in DEXTROSE 5%-WATER 250 ML IV SCH ×3 (05:10→22:09)
[2017-11-16] MEDS: IPRATROPIUM/ALBUTEROL 0.5-2.5 MG/3 ML AMPUL NEB SCH ×3 (08:02→20:00)
[2017-11-16] MEDS: VENLAFAXINE HCL 75 MG CAP.SR.24H PO SCH ×2 (09:56→17:53)
[2017-11-16] MEDS: FAMOTIDINE 20 MG TABLET PO SCH ×2 (09:57→22:08)
[2017-11-16] MEDS: SENNOSIDES/DOCUSATE 8.6-50 MG 1 EACH TABLET PO SCH ×2 (09:57→17:53)
[2017-11-16] MEDS: GUAIFENESIN 600 MG TABLET.SA PO SCH ×2 (09:57→22:07)
[2017-11-16] MEDS: ONDANSETRON 4 MG TAB.RAPDIS PO SCH ×2 (09:58→17:54)
[2017-11-16] MEDS: VALPROATE SODIUM SYRUP 250 MG/5 ML UDCUP PO SCH ×2 (09:58→22:09)
[2017-11-16] MEDS: CEFEPIME 2 GM/D5W RTU 2 GM/50 ML RTUPB IV SCH ×2 (09:58→22:06)
[2017-11-16] MEDS: LEVOFLOXACIN 750 MG/D5W RTU 750 MG/150 ML RTUPB IV SCH (11:04)
[2017-11-17] MEDS: MORPHINE SULFATE 10 MG/ML INJ IV PRN ×3 (00:18→05:48)
[2017-11-17] MEDS: OXYCODONE HCL SR 40 MG TABLET PO SCH (01:12)
--- NOTE | 2017-11-17 05:21 | PDOC PROGRESS REPORT ---
Subjective Progress Note for:: 11/16/17 Subjective:: This is a 37-year-old female with an infected Pleurx catheter, status post removal. He had a conventional chest tube placed for recurrent malignant pleural effusion. The patient is requesting to go home. She reports pain at the insertion site, but no other symptoms. She denies shortness of breath, fevers, chills, nausea, vomiting, abdominal pain, dizziness, orthostasis, or blurry vision. Reason For Visit: [facility] Physical Exam Vital Signs: Temp Pulse Resp BP Pulse Ox 98.1 F 94 16 105/68 97 11/16/17 16:45 11/16/17 16:45 11/16/17 16:45 11/16/17 16:45 11/16/17 16:45 Intake & Output 11/15/17 11/16/17 11/17/17 06:59 06:59 06:59 Intake Total 918 2442 944 Output Total 110 78 100 Balance 808 2364 844 Weight 71 kg 72.5 kg General appearance: PRESENT: no acute distress Eye exam: PRESENT: EOMI, PERRLA. ABSENT: scleral icterus Mouth exam: PRESENT: moist, neck supple Neck exam: ABSENT: meningismus, tenderness, thyromegaly, tracheal deviation Respiratory exam: PRESENT: other - Chest tube in place, to waterseal. Ultimately 100 cc serosanguineous output over 12 hour shift. No air leak. Cardiovascular exam: PRESENT: RRR Pulses: PRESENT: normal radial pulses Vascular exam: PRESENT: normal capillary refill. ABSENT: pallor GI/Abdominal exam: PRESENT: soft. ABSENT: distended, tenderness Extremities exam: ABSENT: tenderness Musculoskeletal exam: PRESENT: normal inspection Neurological exam: PRESENT: alert, awake, oriented to person, oriented to place , oriented to time, oriented to situation, CN II-XII grossly intact. ABSENT: motor sensory deficit Psychiatric exam: PRESENT: agitated - Mild. ABSENT: anxious Skin exam: ABSENT: cyanosis, erythema, jaundice, pallor Results Laboratory Results: 11/13/17 05:25 11/14/17 05:45 Impressions: Chest CT 11/11/17 09:55 IMPRESSION: 1 Interval placement of right chest tube since the previous examination dated 10/18/2017. 2 Persistent moderate to large loculated appearing right pleural effusion with mild decrease in size. Mild compressive atelectatic changes in the right lung. 3. New finding of extensive airspace consolidation and patchy areas of airspace disease in the left upper lobe may represent pneumonia. Correlation suggested. 4. Stable bilateral pulmonary nodules. 5. Additional findings as above. Chest X-Ray 11/15/17 00:00 IMPRESSION: No significant interval change in the previously described small right pleural effusion and associated densities in the right lower lung field. The previously described ill-defined patchy densities in the left perihilar region appear more confluent on the current study and could represent a developing infiltrate or pulmonary edema. No pneumothorax is seen. Other findings as noted above Assessment & Plan - Diagnosis (1) Malignant pleural effusion Is this a current diagnosis for this admission?: Yes (2) Metastatic cancer Is this a current diagnosis for this admission?: Yes - Plan Summary Plan Summary: This is a 37-year-old female with a malignant pleural effusion. The patient is requesting to go home. I will attempt to provide the patient with a drainage bag and Heimlich valve so that she may be discharged with the chest tube in place. Plan for discharge tomorrow.
[2017-11-17] MEDS: VANCOMYCIN HCL 1,250 MG in DEXTROSE 5%-WATER 250 ML IV SCH (05:46)
[2017-11-17] MEDS: INDOMETHACIN 50 MG CAPSULE PO SCH (05:46)
[2017-11-17] MEDS: PROMETHAZINE HCL INJ 25 MG/1 ML VIAL IV PRN (05:49)
[2017-11-17 06:02] LABS: ABSOLUTE BASOPHILS # (AUTO) 0.1 10^3/uL (0.0-0.2); ABSOLUTE EOSINOPHILS # (AUTO) 0.3 10^3/uL (0.0-0.6); ABSOLUTE LYMPHOCYTES (AUTO) 0.6 10^3/uL (0.5-4.7); ABSOLUTE MONOCYTES (AUTO) 1.4 10^3/uL (0.1-1.4); ABSOLUTE NEUT (AUTO) 6.9 10^3/uL (1.7-8.2); BASOPHILS % (AUTO) 0.6 % (0-2); EOSINOPHILS % (AUTO) 3.3 % (0-6); HEMATOCRIT 25.9 % (36.0-47.0); HEMOGLOBIN 8.8 g/dL (12.0-15.5); LYMPHOCYTES % (AUTO) 6.4 % (13-45); MEAN CORPUSCULAR HEMOGLOBIN 33.6 pg (27.0-33.4); MEAN CORPUSCULAR HGB CONC 33.9 g/dL (32.0-36.0); MEAN CORPUSCULAR VOLUME 99 fl (80-97); MONOCYTES % (AUTO) 15.4 % (3-13); PLATELET COUNT 303 10^3/uL (150-450); RED BLOOD COUNT 2.62 10^6/uL (3.72-5.28); RED CELL DISTRIBUTION WIDTH 14.5 % (11.5-14.0); SEGMENTED NEUTROPHILS % (AUTO) 74.3 % (42-78); TOTAL CELLS COUNTED % (AUTO) 100 %; WHITE BLOOD COUNT 9.3 10^3/uL (4.0-10.5)
[2017-11-17 06:34] LABS: ALBUMIN 2.5 g/dL (3.5-5.0); ANION GAP 8 (5-19); BLOOD UREA NITROGEN 10 mg/dL (7-20); CALCIUM 8.7 mg/dL (8.4-10.2); CARBON DIOXIDE 39 mmol/L (22-30); CHLORIDE 93 mmol/L (98-107); GLUCOSE 99 mg/dL (75-110); PHOSPHORUS 4.7 mg/dL (2.5-4.5); SODIUM 140.1 mmol/L (137-145)
[2017-11-17 06:38] LABS: VANCOMYCIN,TROUGH 29.4 ug/mL (5.0-20.0)
--- NOTE | 2017-11-17 07:27 | PDOC PROGRESS REPORT ---
Subjective Subjective:: This is a 37-year-old female with an infected Pleurx catheter, status post removal. She had a conventional chest tube placed for recurrent malignant pleural effusion. The patient is again requesting to go home. She reports pain at the insertion site, but no other symptoms. She denies shortness of breath, fevers, chills, nausea, vomiting, abdominal pain, dizziness, orthostasis , or blurry vision. Reason For Visit: [facility] Physical Exam Vital Signs: Temp Pulse Resp BP Pulse Ox 97.7 F 102 H 18 101/65 92 11/17/17 04:27 11/17/17 04:27 11/17/17 04:27 11/17/17 04:27 11/17/17 04:27 Intake & Output 11/16/17 11/17/17 11/18/17 06:59 06:59 06:59 Intake Total 2442 1494 Output Total 78 100 Balance 2364 1394 Weight 72.5 kg General appearance: PRESENT: no acute distress Head exam: PRESENT: atraumatic, normocephalic Eye exam: PRESENT: EOMI, PERRLA Mouth exam: PRESENT: moist, neck supple Neck exam: ABSENT: meningismus, tenderness, thyromegaly, tracheal deviation Respiratory exam: PRESENT: chest wall tenderness - Chest tube insertion site., unlabored Cardiovascular exam: PRESENT: RRR Pulses: PRESENT: normal radial pulses Vascular exam: PRESENT: normal capillary refill. ABSENT: pallor GI/Abdominal exam: PRESENT: soft. ABSENT: distended, guarding, hernia, tenderness Extremities exam: ABSENT: tenderness Musculoskeletal exam: PRESENT: normal inspection Neurological exam: PRESENT: alert, awake, oriented to person, oriented to place , oriented to time, oriented to situation, CN II-XII grossly intact. ABSENT: motor sensory deficit Psychiatric exam: ABSENT: agitated, anxious Skin exam: ABSENT: cyanosis, erythema, jaundice Results Laboratory Results: 11/17/17 05:40 11/17/17 05:40 11/17/17 11/17/17 05:40 05:40 WBC 9.3 RBC 2.62 L Hgb 8.8 L Hct 25.9 L MCV 99 H MCH 33.6 H MCHC 33.9 RDW 14.5 H Plt Count 303 Seg Neutrophils % 74.3 Lymphocytes % 6.4 L Monocytes % 15.4 H Eosinophils % 3.3 Basophils % 0.6 Absolute Neutrophils 6.9 Absolute Lymphocytes 0.6 Absolute Monocytes 1.4 Absolute Eosinophils 0.3 Absolute Basophils 0.1 Sodium 140.1 Potassium 4.0 Chloride 93 L Carbon Dioxide 39 H Anion Gap 8 BUN 10 Creatinine 1.10 Est GFR ( Amer) > 60 Est GFR (Non-Af Amer) 57 L Glucose 99 Calcium 8.7 Phosphorus 4.7 H Magnesium 1.9 Albumin 2.5 L Impressions: Chest CT 11/11/17 09:55 IMPRESSION: 1 Interval placement of right chest tube since the previous examination dated 10/18/2017. 2 Persistent moderate to large loculated appearing right pleural effusion with mild decrease in size. Mild compressive atelectatic changes in the right lung. 3. New finding of extensive airspace consolidation and patchy areas of airspace disease in the left upper lobe may represent pneumonia. Correlation suggested. 4. Stable bilateral pulmonary nodules. 5. Additional findings as above. Chest X-Ray 11/15/17 00:00 IMPRESSION: No significant interval change in the previously described small right pleural effusion and associated densities in the right lower lung field. The previously described ill-defined patchy densities in the left perihilar region appear more confluent on the current study and could represent a developing infiltrate or pulmonary edema. No pneumothorax is seen. Other findings as noted above Assessment & Plan - Diagnosis (1) Malignant pleural effusion Is this a current diagnosis for this admission?: Yes (2) Metastatic cancer Is this a current diagnosis for this admission?: Yes - Plan Summary Plan Summary: This is a 37-year-old female status post removal of an infected Pleurx catheter with placement of a traditional chest tube. I have attached a James leg bag to the chest tube in order to contain any drainage. Patient wishes to be discharged today for family reasons. I have instructed her to follow-up in the office with Dr. Marie early this coming week. Due to the palliative nature of her care, discharge home with a chest tube is reasonable. I have instructed her to contact me or return to the ER with any issues, problems, questions, or concerns. Plan for discharge home today.
[2017-11-17] MEDS: IPRATROPIUM/ALBUTEROL 0.5-2.5 MG/3 ML AMPUL NEB SCH (07:56)
[2017-11-17 08:48] VITALS: BP 117/65
[2017-11-17] MEDS ORDERED: LEVOFLOXACIN 750 MG TABLET PO SCH (10:00)
--- NOTE | 2017-11-17 21:50 | DISCHARGE SUMMARY E ---
Discharge Summary NAME: EFFIE LOUIS : 1980 AGE: 37Y ADMITTED: 11/11/2017 DISCHARGED: 11/17/2017 ADMISSION DIAGNOSES: 1. Malignant pleural effusion. 2. Possible pneumonia. 3. Sepsis. 4. Brain metastatic. 5. Seizure disorder. 6. Breast cancer. DISCHARGE DIAGNOSES: 1. Breast cancer with metastasis to the brain. 2. Pneumonia. 3. Malignant right pleural effusion, status post chest tube placement. 4. Sepsis, resolved. 5. Brain metastatic. 6. Opioid dependence. 7. Constipation. 8. Seizure disorder. CONSULTATION: Surgery consult. PROCEDURES: Chest tube placement. IMAGING STUDIES: CT chest. HOSPITAL COURSE: The patient is a pleasant 37-year-old female who was diagnosed with breast cancer with metastasis to the brain, and the patient admitted with shortness of breath. She was found to have sepsis secondary to pneumonia, as well as she also had right pleural effusion. She had a chest tube placed and the patient treated for her sepsis with vancomycin IV as well as treated also with cefepime. He condition improved and she is draining less than 100 mL per day. So, the patient treated as mentioned with vancomycin, cefepime, and Levaquin for pneumonia also and sepsis; and she is recovering. The patient wanted to go home today for family reason and surgery saw her today. Since she has a metastatic breast and she is almost palliative care, surgery recommended she can go home. The chest tube was clamped and James, leg bag attached to the chest tube, and she needs to follow next Saturday with surgery. PHYSICAL EXAMINATION ON DISCHARGE: GENERAL: The patient is lying in bed, not in distress. VITAL SIGNS: Temperature 97.8, heart rate 89, blood pressure is 117/65. HEENT: Head normocephalic, atraumatic. Pupils round, reactive to light and accommodation bilaterally. Extraocular movements intact. Ears: Tympanic membranes intact bilaterally. No discharge from the ear. No discharge from the nose. NECK: Supple, no increased JVD, no thyromegaly, no lymphadenopathy. CARDIOVASCULAR: Normal S1, S2. Regular rate and rhythm. No murmur, no gallop. RESPIRATORY: Lungs clear. Bilateral crackles. ABDOMEN: Soft, nontender. MUSCULOSKELETAL: No edema. NEUROLOGIC: Awake, alert. LABORATORY DATA: White blood cell 9.3, hemoglobin 8.8, hematocrit 26. Sodium 140, potassium *------*. DISCHARGE INSTRUCTIONS: 1. Discharge the patient home. 2. Diet: Regular diet. 3. Medications: Levaquin 750 mg p.o. daily, OxyContin 40 mg b.i.d., Linzess 145 mcg p.o. daily, Colace 100 mg p.o. b.i.d., valproic acid 500 mg b.i.d., Phenergan 25 mg p.o. q.6 hours, Anusol suppository, Effexor 75 mg p.o. daily, Zofran 4 mg b.i.d., oxycodone intermediate relief 10 mg q.4 hours, Mucinex 600 mg b.i.d., famotidine 20 mg twice a day, Tylenol p.r.n. 4. Follow up with Dr. Marie next week. 5. Follow up with private physician in 1 week. 6. Other instructions; come to the emergency room regarding chest pain or shortness of breath. TIME SPENT: Forty minutes. DICTATING PHYSICIAN: ADWOA FUNES M.D. [id number] PHY#: [id number] ID: [id number] JOB#: [id number] ACCT: [id number] cc:Anette CUMMINGS M.D. >
--- NOTE | 2017-11-18 13:13 | PROGRESS NOTE E ---
Progress Note NAME: EFFIE LOUIS : 1980 AGE: 37Y DATE: 11/16/2017 ROOM: 315 SUBJECTIVE: The patient is a pleasant 37-year-old female who was admitted with malignant pleural effusions. She had a history breast cancer. She also had a healthcare associated pneumonia. The patient is feeling better today and she wants to go home. OBJECTIVE: GENERAL: The patient is lying in bed, not in distress. VITAL SIGNS: Temperature 98.0, heart rate 91, blood pressure 104/64, saturation 96%. HEENT: Head normocephalic, atraumatic. Pupils round, reactive to light and accommodation bilaterally. Extraocular movements intact. Ears: Tympanic membranes intact bilaterally. No discharge from the ear. No discharge from the nose. NECK: Supple, no increased JVD, no thyromegaly, no lymphadenopathy. CARDIOVASCULAR: Normal S1, S2. Regular rate and rhythm. RESPIRATORY: Bilateral crackles. ABDOMEN: Soft. MUSCULOSKELETAL: No edema. NEUROLOGIC: Awake. LABORATORY DATA: White blood count 7.0, hemoglobin 9.2, hematocrit 27. Creatinine 0.47, sodium 139, potassium 3.8. IMAGING STUDIES: Chest x-ray from yesterday; small right pleural effusions. ASSESSMENT: 1. MALIGNANT PLEURAL EFFUSION. 2. DEPENDENCE. 3. GENERALIZED 4. METASTATIC BREAST CANCER. 5. PAIN, GENERALIZED BODY ACHE FROM . PLAN: The patient still has a chest tube and is draining around 100 mL for the last 24 hours and . Continue antibiotic Levaquin mg IV daily. Continue vancomycin. specifically IV antibiotics, she is on Levaquin and vancomycin medical necessity. She needs IV antibiotics due to . Probably home in 1 or 2 days. The patient is to have a chest tube closed. DICTATING PHYSICIAN: ADWOA FUNES M.D. [id number] PHY#: [id number] ID: [id number] JOB#: [id number] ACCT: [id number] cc: >
== END 2017-11-17 10:33 | disposition home or self-care (01) | DRG 871 ==
LOC: ER 04:45 → EH 13:11 → 3W 17:34
PROVIDERS: ADMIT Internal Medicine; ATTEND Internal Medicine
PROC: 3E0F73Z Introduction of Anti-inflammatory into Respiratory Tract, Via Natural or Artificial Opening (ICD-10-PCS; 2017-11-11)
PROC: 0WP9X3Z Removal of Infusion Device from Right Pleural Cavity, External Approach (ICD-10-PCS; 2017-11-11)
PROC: 0W9900Z Drainage of Right Pleural Cavity with Drainage Device, Open Approach (ICD-10-PCS; principal; 2017-11-11 19:45)
DX: A41.9 Sepsis, unspecified organism (principal); J18.9 Pneumonia, unspecified organism; J96.01 Acute respiratory failure with hypoxia; C79.31 Secondary malignant neoplasm of brain; J91.0 Malignant pleural effusion; F11.20 Opioid dependence, uncomplicated; C78.01 Secondary malignant neoplasm of right lung; Z66 Do not resuscitate; C50.919 Malignant neoplasm of unspecified site of unspecified female breast; G43.909 Migraine, unspecified, not intractable, without status migrainosus; K21.9 Gastro-esophageal reflux disease without esophagitis; M79.7 Fibromyalgia; K59.09 Other constipation; G40.409 Other generalized epilepsy and epileptic syndromes, not intractable, without status epilepticus; R91.8 Other nonspecific abnormal finding of lung field; G89.3 Neoplasm related pain (acute) (chronic); Z90.11 Acquired absence of right breast and nipple; Z90.49 Acquired absence of other specified parts of digestive tract; Z79.899 Other long term (current) drug therapy; Z83.3 Family history of diabetes mellitus
CPT/HCPCS: 36415; 520; 71045; 71046; 71260; 80048; 80053; 80069; 80202; 81001; 82565; 82962; 83735; 85025; 85027; 87040; 93005; 93010; 94640; 94799; 96365; 96368; 96375; 96376; 99291; J0692; J0696; J1170; J1956; J2250; J2270; J2550; J2704; J3010; J3370; J3490; J7030; J7060; J7620; S0028; S0119

== ENCOUNTER 2017-11-17 20:02 | Emergency (ER) | payer MEDICAID ==
[2017-11-17] MEDS ORDERED: MORPHINE SULFATE 10 MG/ML INJ IV ONE (20:46)
--- NOTE | 2017-11-17 20:51 | ER Document Report ---
ED General - General Chief Complaint: Pain Stated Complaint: DRAINAGE TUBE ISSUES Time Seen by Provider: 11/17/17 20:36 Notes: Patient is a 37-year-old female that comes emergency department for chief complaint of possible dislodged drainage tube in the right side of her chest, she has a history of right-sided breast cancer with metastasis, she had a Pleurx catheter placed for drainage of malignant effusion, she states that she felt a pulling sensation and started bleeding when she was sitting at home. She denies trauma, yanking injury. She states the area has become more painful as well with radiating pains towards her upper abdomen. Patient was discharged from the hospital earlier today. Tube initially placed by Dr. Marie per patient. TRAVEL OUTSIDE OF THE [place] IN LAST 30 DAYS: No - Related Data Allergies/Adverse Reactions: Adhesive Bandage * [Adhesive Bandage] Allergy (Mild, Verified 10/18/17 09:52) Generalized rash adhesive tape [Adhesive Tape] Allergy (Mild, Verified 10/18/17 09:52) Generalized rash Past Medical History - General Information source: Patient - Social History Smoking Status: Never Smoker Frequency of alcohol use: None Drug Abuse: None Lives with: Spouse/Significant other Family History: DM, Other - Started to review with patient though - Past Medical History Cardiac Medical History: Denies: Hx Coronary Artery Disease, Hx Heart Attack, Hx Hypertension Pulmonary Medical History: Reports: Hx Asthma - TEENAGER, Hx Pneumonia - recently d/c'd 05/10/17, Hx Respiratory Failure Denies: Hx Bronchitis, Hx COPD, Hx Tuberculosis Neurological Medical History: Reports: Hx Migraine, Hx Seizures. Denies: Hx Cerebrovascular Accident Endocrine Medical History: Denies: Hx Diabetes Mellitus Type 1, Hx Diabetes Mellitus Type 2 Renal/ Medical History: Denies: Hx Peritoneal Dialysis Malignancy Medical History: Reports: Hx Brain Cancer, Hx Breast Cancer - right mastectomy. With metastases to brain and lungs and pleural fluid, Hx Lung Cancer GI Medical History: Reports: Hx Gastroesophageal Reflux Disease. Denies: Hx Hiatal Hernia Musculoskeltal Medical History: Denies Hx Arthritis, Reports Hx Fibromyalgia Skin Medical History: Denies Hx Eczema Psychiatric Medical History: Denies: Hx Depression Infectious Medical History: Past Surgical History: Reports: Hx Section - x2, Hx Cholecystectomy, Hx Mastectomy - Right right mastectomy with axillary node dissection, Hx Orthopedic Surgery, Hx Tonsillectomy, Hx Tubal Ligation, Hx Vascular Surgery - Left chest wall port - Immunizations Hx Diphtheria, Pertussis, Tetanus Vaccination: Yes Hx Pneumococcal Vaccination: 04/30/13 Review of Systems - Review of Systems Constitutional: No symptoms reported EENT: No symptoms reported Cardiovascular: See HPI Respiratory: See HPI Gastrointestinal: No symptoms reported Genitourinary: No symptoms reported Female Genitourinary: No symptoms reported Musculoskeletal: No symptoms reported Skin: No symptoms reported Hematologic/Lymphatic: No symptoms reported Neurological/Psychological: No symptoms reported Physical Exam - Vital signs Vitals: Temp Pulse Resp BP Pulse Ox 99.5 F 111 H 16 100/67 92 11/17/17 20:13 11/17/17 20:13 11/17/17 20:13 11/17/17 20:13 11/17/17 20:13 - Notes Notes: GENERAL: Alert, anxious. No acute distress. HEAD: Normocephalic, atraumatic. EYES: Pupils equal, round, and reactive to light. Extraocular movements intact. ENT: Oral mucosa moist, tongue midline. NECK: Full range of motion. Supple. Trachea midline. LUNGS: No tachypnea or distress; no wheezes, rales, or rhonchi. Very minimally decreased breath sounds on the right compared to the left. There is a chest tube in place in the right mid chest, suture still in place, some blood in the bag, no bleeding around the tube, unremarkable skin around the tube, no surrounding crepitus or swelling. HEART: Regular rate and rhythm. No murmur ABDOMEN: Soft, non-tender. Non-distended. Bowel sounds present in all 4 quadrants. EXTREMITIES: Moves all 4 extremities spontaneously. No edema, normal radial and dorsalis pedis pulses bilaterally. No cyanosis. BACK: no cervical, thoracic, lumbar midline tenderness. No saddle anesthesia, normal distal neurovascular exam. NEUROLOGICAL: Alert and oriented x3. Normal speech. [cranial nerves II through XII grossly intact]. SKIN: Warm, dry, normal turgor. No rashes or lesions noted. Course - Re-evaluation Re-evalutation: Patient anxious but well-appearing on exam. There was some blood in the dressings around the right lower chest tube but no current bleeding around the tube, there is some blood in the 2. Suture is still intact, tube is still in the chest. No crepitus or severe tenderness around the area, no concerning redness, no fever. Patient with shifting on the bed and this shows varying vital signs but when I monitored her in the room she is not tachycardic, not hypotensive, and not hypoxic. CBC shows mild leukocytosis, shows anemia, comparable to chemistry unremarkable. Chest x-ray does not show any significant change compared to prior, tube still in place. Called and spoke with Dr. Seo, he reviewed the image, discussed the case, he is very familiar with patient, he does not have any additional recommendations at the time because the tube is still in place, recommends following up in the office tomorrow. Patient does state agreement with this plan, she requests that her fentanyl patch be replaced, this is , old one removed, new one placed of the same dose. - Vital Signs Vital signs: Temp Pulse Resp BP Pulse Ox 98.7 F 111 H 17 107/67 94 11/18/17 00:03 11/17/17 20:13 11/18/17 00:03 11/17/17 23:01 11/18/17 00:03 - Laboratory Result Diagrams: 11/17/17 22:30 11/17/17 21:25 Laboratory results interpreted by me: 11/17/17 11/17/17 21:25 22:30 WBC 11.7 H RBC 2.58 L Hgb 8.6 L Hct 25.6 L MCV 99 H MCH 33.5 H RDW 14.8 H Lymphocytes % 5.3 L Monocytes % 14.1 H Absolute Neutrophils 8.8 H Absolute Monocytes 1.6 H Chloride 93 L Carbon Dioxide 37 H Est GFR (Non-Af Amer) 55 L Total Bilirubin < 0.1 L Total Protein 5.7 L Albumin 2.6 L Discharge - Discharge Clinical Impression: Complication of chest tube Qualifiers: Encounter type: initial encounter Qualified Code(s): T85.9XXA - Unspecified complication of internal prosthetic device, implant and graft, initial encounter Condition: Stable Disposition: HOME, SELF-CARE Additional Instructions: The chest tube remains secured in appropriate place based on the examination and imaging. I spoke with surgeon Dr. Rayray nolan in regards to your visit and imaging. Please follow-up on Saturday to have this rechecked and for additional evaluation and management. Return if you worsen including fever, difficulty breathing, vomiting, or any other concerning or worsening symptoms. Referrals: ANDREA HOPPER MD [Primary Care Provider] - Follow up as needed
[2017-11-17 21:59] LABS: ALANINE AMINOTRANSFERASE 17 U/L (9-52); ALBUMIN 2.6 g/dL (3.5-5.0); ALKALINE PHOSPHATASE 59 U/L (38-126); ANION GAP 9 (5-19); ASPARTATE AMINO TRANSFERASE 22 U/L (14-36); BLOOD UREA NITROGEN 14 mg/dL (7-20); CALCIUM 8.9 mg/dL (8.4-10.2); CARBON DIOXIDE 37 mmol/L (22-30); CHLORIDE 93 mmol/L (98-107); GLUCOSE 85 mg/dL (75-110); POTASSIUM 4.2 mmol/L (3.6-5.0); SODIUM 139.1 mmol/L (137-145); TOTAL PROTEIN 5.7 g/dL (6.3-8.2)
[2017-11-17 22:01] LABS: BILIRUBIN,TOTAL < 0.1 mg/dL (0.2-1.3)
--- NOTE | 2017-11-17 22:01 | RADIOLOGY REPORT (SQ) ---
EXAM DESCRIPTION: CHEST SINGLE VIEW COMPLETED DATE/TIME: 11/17/2017 9:03 pm REASON FOR STUDY: chest tube displaced? COMPARISON: Chest x-ray 11/15/2017. CT chest 11/11/2017. EXAM PARAMETERS: NUMBER OF VIEWS: One view. TECHNIQUE: Single frontal radiographic view of the chest acquired. RADIATION DOSE: NA LIMITATIONS: None. FINDINGS: LUNGS AND PLEURA: There is a small right-sided pleural effusion and adjacent airspace opac ities at the right lung base. Patchy airspace opacities are seen throughout the left lung. MEDIASTINUM AND HILAR STRUCTURES: Stable. HEART AND VASCULAR STRUCTURES: Stable. HARDWARE: There is a left-sided Port-A-Cath with the tip overlying the region of the atriocaval junc tion. There is a chest tube at the right lower hemithorax. IMPRESSION: 1. Small right pleural effusion and adjacent airspace opacities at the right lung base and with a chest tube at the right lower hemithorax. 2. Patchy airspace opacities within the left lung, may represent multifocal pneumonia or asymmetric p ulmonary edema. TECHNICAL DOCUMENTATION: JOB ID: [id number] [employer]- All Rights Reserved Reading location - IP/workstation name: [email or web address]
[2017-11-17] MEDS ORDERED: FENTANYL CITRATE INJ/PF 100 MCG/2 ML AMPUL IV ONE (22:16)
[2017-11-17 22:43] LABS: ABSOLUTE BASOPHILS # (AUTO) 0.1 10^3/uL (0.0-0.2); ABSOLUTE EOSINOPHILS # (AUTO) 0.5 10^3/uL (0.0-0.6); ABSOLUTE LYMPHOCYTES (AUTO) 0.6 10^3/uL (0.5-4.7); ABSOLUTE MONOCYTES (AUTO) 1.6 10^3/uL (0.1-1.4); ABSOLUTE NEUT (AUTO) 8.8 10^3/uL (1.7-8.2); BASOPHILS % (AUTO) 0.9 % (0-2); EOSINOPHILS % (AUTO) 4.1 % (0-6); HEMATOCRIT 25.6 % (36.0-47.0); LYMPHOCYTES % (AUTO) 5.3 % (13-45); MEAN CORPUSCULAR HEMOGLOBIN 33.5 pg (27.0-33.4); MEAN CORPUSCULAR HGB CONC 33.7 g/dL (32.0-36.0); MEAN CORPUSCULAR VOLUME 99 fl (80-97); MONOCYTES % (AUTO) 14.1 % (3-13); PLATELET COUNT 316 10^3/uL (150-450); RED BLOOD COUNT 2.58 10^6/uL (3.72-5.28); RED CELL DISTRIBUTION WIDTH 14.8 % (11.5-14.0); SEGMENTED NEUTROPHILS % (AUTO) 75.6 % (42-78); TOTAL CELLS COUNTED % (AUTO) 100 %; WHITE BLOOD COUNT 11.7 10^3/uL (4.0-10.5)
[2017-11-17 22:46] LABS: HEMOGLOBIN 8.6 g/dL (12.0-15.5)
[2017-11-17] MEDS ORDERED: FENTANYL 50 MCG/HR PATCH.TD72 TD ONE (23:08)
[2017-11-17 23:42] VITALS: BP 107/67
== END 2017-11-18 00:04 | disposition home or self-care (01) ==
LOC: ER 20:02
DX: T85.9XXA Unspecified complication of internal prosthetic device, implant and graft, initial encounter (principal); Y82.8 Other medical devices associated with adverse incidents; C79.31 Secondary malignant neoplasm of brain; C78.00 Secondary malignant neoplasm of unspecified lung; J91.0 Malignant pleural effusion; D64.9 Anemia, unspecified; D72.829 Elevated white blood cell count, unspecified; Z91.048 Other nonmedicinal substance allergy status
CPT/HCPCS: 36591; 99284; 96374; 96375; 36415; 85025; 80053; 71045; J3010; J2270; J3490

== ENCOUNTER 2017-11-20 13:29 | Observation (INO) | payer MEDICAID ==
[2017-11-20] MEDS ORDERED: FENTANYL CITRATE INJ/PF 100 MCG/2 ML AMPUL IV PRN (13:36)
--- NOTE | 2017-11-20 13:45 | ER Document Report ---
ED General - General Chief Complaint: Pain Stated Complaint: ABDOMINAL PAIN Time Seen by Provider: 11/20/17 13:35 Notes: The patient is a 37-year-old female, past medical history metastatic breast cancer, recurring right-sided pleural effusion with Pleurx cath, chronic right- sided abdominal pain, presents from her oncologist's office, Dr. Dhaliwal, with worsening intractable pain. She is taking her fentanyl patches oral narcotics without much relief of her symptoms. She is having some drainage from her Pleurx cath this morning. She did not get chemo this morning. She denies fevers, nausea, vomiting, rash, headache or increased back pain. TRAVEL OUTSIDE OF THE [place] IN LAST 30 DAYS: No - Related Data Allergies/Adverse Reactions: Adhesive Bandage * [Adhesive Bandage] Allergy (Mild, Verified 10/18/17 09:52) Generalized rash adhesive tape [Adhesive Tape] Allergy (Mild, Verified 10/18/17 09:52) Generalized rash Past Medical History - General Information source: Patient - Social History Smoking Status: Unknown if Ever Smoked Family History: DM, Other - Started to review with patient though - Past Medical History Cardiac Medical History: Denies: Hx Coronary Artery Disease, Hx Heart Attack, Hx Hypertension Pulmonary Medical History: Reports: Hx Asthma - TEENAGER, Hx Pneumonia - recently d/c'd 05/10/17, Hx Respiratory Failure Denies: Hx Bronchitis, Hx COPD, Hx Tuberculosis Neurological Medical History: Reports: Hx Migraine, Hx Seizures. Denies: Hx Cerebrovascular Accident Endocrine Medical History: Denies: Hx Diabetes Mellitus Type 1, Hx Diabetes Mellitus Type 2 Renal/ Medical History: Denies: Hx Peritoneal Dialysis Malignancy Medical History: Reports: Hx Brain Cancer, Hx Breast Cancer - right mastectomy. With metastases to brain and lungs and pleural fluid, Hx Lung Cancer GI Medical History: Reports: Hx Gastroesophageal Reflux Disease. Denies: Hx Hiatal Hernia Musculoskeltal Medical History: Denies Hx Arthritis, Reports Hx Fibromyalgia Skin Medical History: Denies Hx Eczema Psychiatric Medical History: Denies: Hx Depression Infectious Medical History: Past Surgical History: Reports: Hx Section - x2, Hx Cholecystectomy, Hx Mastectomy - Right right mastectomy with axillary node dissection, Hx Orthopedic Surgery, Hx Tonsillectomy, Hx Tubal Ligation, Hx Vascular Surgery - Left chest wall port - Immunizations Hx Diphtheria, Pertussis, Tetanus Vaccination: Yes Hx Pneumococcal Vaccination: 04/30/13 Review of Systems - Review of Systems Notes: REVIEW OF SYSTEMS: CONSTITUTIONAL: -fevers, -chills EENT: -eye pain, -difficulty swallowing, -nasal congestion CARDIOVASCULAR: +chest pain, -syncope. RESPIRATORY: -cough, -SOB GASTROINTESTINAL: +abdominal pain, -nausea, -vomiting, -diarrhea GENITOURINARY: -dysuria, -hematuria MUSCULOSKELETAL: -back pain, -neck pain SKIN: -rash or skin lesions. HEMATOLOGIC: -easy bruising or bleeding. LYMPHATIC: -swollen, enlarged glands. NEUROLOGICAL: -altered mental status or loss of consciousness, -headache, - neurologic symptoms PSYCHIATRIC: -anxiety, -depression. ALL OTHER SYSTEMS REVIEWED AND NEGATIVE. Physical Exam - Vital signs Vitals: Temp Pulse BP Pulse Ox 98.7 F 89 124/76 98 11/20/17 13:34 11/20/17 13:34 11/20/17 13:34 11/20/17 13:34 - Notes Notes: PHYSICAL EXAMINATION: GENERAL: Mild distress. HEAD: Atraumatic, normocephalic. EYES: Pupils equal round and reactive to light, extraocular movements intact, sclera anicteric, conjunctiva are normal. ENT: nares patent, oropharynx clear without exudates. Moist mucous membranes. NECK: Normal range of motion, supple without lymphadenopathy LUNGS: No respiratory distress. Mild end-expiratory wheezes. Pleurx catheter in place with bloody drainage in bag. Crackles in right upper lobe. HEART: Mild tachycardia, regular rhythm. ABDOMEN: Soft, mild RUQ tenderness, normoactive bowel sounds. No guarding, no rebound. No masses appreciated. EXTREMITIES: Normal range of motion, no pitting or edema. No cyanosis. NEUROLOGICAL: Cranial nerves grossly intact. Normal speech, normal gait. Normal sensory and motor exams. PSYCH: Normal mood, normal affect. SKIN: Warm, Dry, normal turgor, no rashes or lesions noted. Course - Re-evaluation Re-evalutation: Patient with worsening pain despite multiple oral medications and fentanyl patches. Her oncologist sent her to the ER for admission for intractable pain. Patient denies any increased shortness of breath. 11/20/17 14:[address] Chan Jewell (Hospitalist) and he has accepted patient to Medical floor. - Vital Signs Vital signs: Temp Pulse Resp BP Pulse Ox 98.7 F 89 124/76 98 11/20/17 13:34 11/20/17 13:34 11/20/17 13:34 11/20/17 13:34 - Laboratory Result Diagrams: 11/20/17 14:12 11/20/17 14:12 Laboratory results interpreted by me: 11/20/17 11/20/17 14:12 14:12 WBC 10.6 H RBC 2.54 L Hgb 8.4 L Hct 24.7 L RDW 15.8 H Band Neutrophils % 1 L Lymphocytes % (Manual) 10 L Monocytes % (Manual) 14 H Abs Monocytes (Manual) 1.5 H Chloride 95 L Carbon Dioxide 31 H Est GFR (Non-Af Amer) 58 L Glucose 128 H Total Protein 5.8 L Albumin 2.7 L Discharge - Discharge Clinical Impression: Intractable pain, Metastatic breast cancer Condition: Stable Disposition: ADMITTED INPATIENT Admitting Provider: Hospitalist - [facility] Unit Admitted: Medical Floor
[2017-11-20 14:30] LABS: HEMATOCRIT 24.7 % (36.0-47.0); HEMOGLOBIN 8.4 g/dL (12.0-15.5); MEAN CORPUSCULAR HEMOGLOBIN 33.1 pg (27.0-33.4); MEAN CORPUSCULAR VOLUME 97 fl (80-97); PLATELET COUNT 301 10^3/uL (150-450); RED BLOOD COUNT 2.54 10^6/uL (3.72-5.28); RED CELL DISTRIBUTION WIDTH 15.8 % (11.5-14.0); WHITE BLOOD COUNT 10.6 10^3/uL (4.0-10.5)
[2017-11-20 14:48] LABS: ALANINE AMINOTRANSFERASE 19 U/L (9-52); ALBUMIN 2.7 g/dL (3.5-5.0); ALKALINE PHOSPHATASE 54 U/L (38-126); ANION GAP 11 (5-19); ASPARTATE AMINO TRANSFERASE 25 U/L (14-36); BILIRUBIN,DIRECT 0.2 mg/dL (0.0-0.4); BILIRUBIN,TOTAL 0.2 mg/dL (0.2-1.3); BLOOD UREA NITROGEN 17 mg/dL (7-20); CALCIUM 8.7 mg/dL (8.4-10.2); CARBON DIOXIDE 31 mmol/L (22-30); CHLORIDE 95 mmol/L (98-107); GLUCOSE 128 mg/dL (75-110); POTASSIUM 4.2 mmol/L (3.6-5.0); SODIUM 137.4 mmol/L (137-145); TOTAL PROTEIN 5.8 g/dL (6.3-8.2)
[2017-11-20 14:57] LABS: ABSOLUTE LYMPHOCYTES# (MANUAL) 1.1 10^3/uL (0.5-4.7); ABSOLUTE MONOCYTES # (MANUAL) 1.5 10^3/uL (0.1-1.4); ANISOCYTOSIS SLIGHT; BAND NEUTROPHILS % (MANUAL) 1 % (3-5); BASOPHILS % (MANUAL) 0 % (0-2); EOSINOPHILS % (MANUAL) 1 % (0-6); HYPOCHROMASIA SLIGHT; LYMPHOCYTES % (MANUAL) 10 % (13-45); MONOCYTES % (MANUAL) 14 % (3-13); PLATELET COMMENT ADEQUATE; SEGMENTED NEUTROPHILS % (MAN) 74 % (42-78); TOTAL CELLS COUNTED 100; TOXIC GRANULATION SLIGHT; TOXIC VACUOLATION PRESENT
[2017-11-20] MEDS ORDERED: ONDANSETRON HCL INJ/PF 4 MG/2 ML SDV IV PRN (15:48)
--- NOTE | 2017-11-20 16:46 | RADIOLOGY REPORT (SQ) ---
EXAM DESCRIPTION: CT CHEST WITHOUT COMPLETED DATE/TIME: 11/20/2017 4:14 pm REASON FOR STUDY: assessment of chest tube placement COMPARISON: 11/11/2017 TECHNIQUE: CT scan performed of the chest without intravenous contrast. Images reviewed with lung, soft tissue and bone windows. Reconstructed coronal and sagittal MPR images reviewed. All images st ored on PACS. All CT scanners at this facility use dose modulation, iterative reconstruction, and/or weight based d osing when appropriate to reduce radiation dose to as low as reasonably achievable (ALARA). [facility]: Dose Right [facility]: CareDose [facility]: Dose Right [facility]: Teradose 4D [facility]: [employer] RADIATION DOSE: CT Rad equipment meets quality standard of care and radiation dose reduction techniq ues were employed. CTDIvol: 5.8 mGy. DLP: 220 mGy-cm. mGy. LIMITATIONS: No technical limitations. FINDINGS: LUNGS AND PLEURA: Considerable infiltrates are present in the left upper lobe and lingula with lesser infiltrates in the left lower lobe. No significant right-sided infiltrates are present. There is a small right pleural effusion. Several small right pulmonary nodules are seen. The large st is a ground-glass nodule in the right upper lobe that measures 7 mm. The next most prominent is a 5 mm nodule laterally on image 26 series 4. There appear to be some small bubbles of air in the ple ural space in the right costophrenic sulcus. A thoracotomy tube is present in the right base. The t ip of the tube abuts the mediastinum. HILAR AND MEDIASTINAL STRUCTURES: No identified masses or abnormal nodes. No obvious aneurysm. HEART AND VASCULAR STRUCTURES: No aneurysm. No pericardial effusion. UPPER ABDOMEN: No significant findings. Limited exam. THYROID AND OTHER SOFT TISSUES: No masses. No adenopathy. BONES: No osseous lesions are seen. HARDWARE: An injection port on the left. OTHER: No other significant findings. IMPRESSION: 1. Increasing left upper lobe and lower lobe pneumonia. 2. There are several small pulmonary nodules on the right. These are nonspecific. Some can be seen on the prior study. 3. Thoracotomy tube is present in the right base. 4. There are some bubbles of air in the pleural space on the right and there is a small residual rig ht pleural effusion. The air bubbles may relate to the placement of the large thoracotomy tube. Are there any clinical findings to suggest an empyema? TECHNICAL DOCUMENTATION: JOB ID: [id number] Quality ID # [id number]: Final reports with documentation of one or more dose reduction techniques (e.g., Au tomated exposure control, adjustment of the mA and/or kV according to patient size, use of iterative reconstruction technique) 2010 [employer]- All Rights Reserved Reading location - IP/workstation name: [email or web address]
[2017-11-20] MEDS: FENTANYL CITRATE INJ/PF 100 MCG/2 ML AMPUL IV PRN ×2 (17:07→21:16)
--- NOTE | 2017-11-20 18:41 | PDOC H&P ---
History of Present Illness Admission Date/PCP: 11/20/17 14:54 Dr. Ahn Patient complains of: Intractable pain related to chest tube History of Present Illness: EFFIE LOUIS is a 37 year old female with history of metastatic breast cancer with mets to the brain and known malignant right-sided pleural effusion. Patient has had multiple hospitalizations for complications related to her pleural effusion and intractable pain. She was recently admitted to [place] from 11/07-11/10. and then again from 11/11-11/17. Patient states that over the last 2-3 days she has developed worsening right sided pain at site of chest tube that is not controlled with current pain regimen. She also has associated SOB and nausea /vomiting. She has known right sided infiltrates that has been treated with antibiotics. She was suppose to follow with Dr. Marie regarding her chest tube on 11/19 however missed appointment due to pain and inability to leave her house. She was seen by her oncologist, Dr. Ahn today who recommended she come to the ED for further evaluation. She is now admitted to the hospitalist service for further management. Past Medical History Cardiac Medical History: Denies: Coronary Artery Disease, Myocardial Infarction, Hypertension Pulmonary Medical History: Reports: Asthma - TEENAGER, Pneumonia - recently d /c'd 05/10/17, Respiratory Failure Denies: Bronchitis, Chronic Obstructive Pulmonary Disease (COPD), Tuberculosis Neurological Medical History: Reports: Migraine, Seizures Endocrine Medical History: Denies: Diabetes Mellitus Type 1, Diabetes Mellitus Type 2 Malignancy Medical History: Reports: Brain Cancer, Breast Cancer - right mastectomy. With metastases to brain and lungs and pleural fluid, Lung Cancer GI Medical History: Reports: Gastroesophageal Reflux Disease Denies: Hiatal Hernia Musculoskeltal Medical History: Reports: Fibromyalgia Denies: Arthritis Skin Medical History: Denies: Eczema Psychiatric Medical History: Denies: Depression Hematology: Denies: Anemia, Sickle Cell Disease Past Surgical History Past Surgical History: Reports: Amputation, Section - x2, Cholecystectomy, Mastectomy - Right right mastectomy with axillary node dissection, Orthopedic Surgery, Tonsillectomy, Tubal Ligation, Vascular Surgery - Left chest wall port Social History Information Source: Patient Lives with: Family Smoking Status: Unknown if Ever Smoked Frequency of Alcohol Use: None Hx Recreational Drug Use: No Drugs: None Hx Prescription Drug Abuse: No Family History Family History: DM, Other - Started to review with patient though Parental Family History Reviewed: No Children Family History Reviewed: NA Sibling(s) Family History Reviewed.: NA Medication/Allergy Home Medications: Albuterol Sulfate [Ventolin 0.083% Neb 2.5 mg/3 mL Ampul] 3 ml NEB Q4HP PRN Esomeprazole Magnesium [Nexium 24Hr] 20 mg PO DAILY 11/20/17 Famotidine [Pepcid 20 mg Tablet] 20 mg PO BID 11/20/17 Hydrocortisone Acetate [Anusol Hc 25 mg Supp.rect] 1 supp NV BIDP PRN 11/20/17 Oxycodone HCl 20 mg PO Q4HP PRN 11/20/17 Oxycodone HCl [Oxycontin] 40 mg PO Q12 11/20/17 Valproic Acid [Depakene] 500 mg PO Q12 11/20/17 Venlafaxine HCl ER [Effexor Xr 75 mg Cap.sr] 75 mg PO DAILY 11/20/17 Allergies/Adverse Reactions: Adhesive Bandage * [Adhesive Bandage] Allergy (Mild, Verified 10/18/17 09:52) Generalized rash adhesive tape [Adhesive Tape] Allergy (Mild, Verified 10/18/17 09:52) Generalized rash Review of Systems All systems: reviewed and no additional remarkable complaints except as stated Physical Exam Vital Signs: Temp Pulse Resp BP Pulse Ox 98.7 F 89 124/76 98 11/20/17 13:34 11/20/17 13:34 11/20/17 13:34 11/20/17 13:34 General appearance: PRESENT: cooperative, severe distress - secondary to pain, thin Head exam: PRESENT: atraumatic, normocephalic Mouth exam: PRESENT: moist Neck exam: PRESENT: full ROM Respiratory exam: PRESENT: decreased breath sounds, rhonchi - R>L, unlabored Cardiovascular exam: PRESENT: +S1, +S2. ABSENT: tachycardia GI/Abdominal exam: PRESENT: soft, tenderness - Diffuse Extremities exam: ABSENT: +1 edema Neurological exam: PRESENT: alert, awake, oriented to person, oriented to place , oriented to time, oriented to situation, CN II-XII grossly intact Psychiatric exam: PRESENT: depressed Skin exam: PRESENT: dry, intact Results Impressions: Chest CT 11/20/17 00:00 IMPRESSION: 1. Increasing left upper lobe and lower lobe pneumonia. 2. There are several small pulmonary nodules on the right. These are nonspecific. Some can be seen on the prior study. 3. Thoracotomy tube is present in the right base. 4. There are some bubbles of air in the pleural space on the right and there is a small residual right pleural effusion. The air bubbles may relate to the placement of the large thoracotomy tube. Are there any clinical findings to suggest an empyema? Assessment & Plan - Diagnosis (1) Intractable pain Is this a current diagnosis for this admission?: Yes Plan: Secondary to chest tube. Discussed with general surgery in ER who did not feel that removal of tube would helpful since she has loculated pleural effusion and likely need another chest tube placed. - ORdered oxycone 10mg q4 hours PRN and fentanyl 50mg q6 hours PRN - CT chest today shows air bubbles in the pleural space on the right side. However chest tube does not appear to be misplaced. - No clinical signs of empyema. (2) Metastatic breast cancer Is this a current diagnosis for this admission?: Yes Plan: Followed by Dr. Ahn. Currently on clinical trial. Known mets to brain. - Case discussed with Dr. Ahn. Unfortunately this is a very difficult situation in a young patient. She has gone through multiple lines of therapy - Will have a goals of care discussion tomorrow morning with patient and her mother - Hold study medications at this time. (3) Malignant pleural effusion Is this a current diagnosis for this admission?: Yes Plan: Per above. Chest tube in place. Has not been draining over last 1-2 days. - Based on [facility] tomorrow, will discuss next steps regarding chest tube, re: removal or keep in place for palliation (4) Pneumonia Qualifiers: Pneumonia type: due to unspecified organism Laterality: right Lung location: unspecified part of lung Qualified Code(s): J18.9 - Pneumonia, unspecified organism Is this a current diagnosis for this admission?: Yes Plan: Has been treated with antibiotics during recent admissions. CT chest today re- demonstrated infiltrates. Patient is afebrile and HDS. She is satting well on RA. Mild leukocytosis with no left shift. Unclear if additional antibiotics will help at this point. Will hold off on starting abx. If signs of clinical deterioration, would re-start. Treatment plans will be determined by [facility] tomorrow AM. - Time Time Spent: Greater than 70 Minutes Critical Time spent with patient: 15-24 minutes Anticipated discharge: Home
[2017-11-20] MEDS: OXYCODONE HCL IR 5 MG TABLET PO PRN (19:57)
[2017-11-20] MEDS ORDERED: ENOXAPARIN SODIUM INJ 40 MG/0.4 ML DISP.SYRIN SUBCUT ONE (21:00)
[2017-11-20] MEDS: FAMOTIDINE 20 MG TABLET PO SCH (21:15)
[2017-11-20] MEDS: DOCUSATE SODIUM 100 MG CAPSULE PO SCH (21:15)
[2017-11-20] MEDS: VALPROATE SODIUM SYRUP 250 MG/5 ML UDCUP PO SCH (21:32)
[2017-11-20] MEDS ORDERED: METOCLOPRAMIDE HCL INJ/PF 10 MG/2 ML SDV IV ONE (21:41)
[2017-11-20] MEDS ORDERED: (PENDING PHARMACY ID) (Valproic Acid [Depakene] 500 MG) PO SCH (22:00)
[2017-11-21] MEDS: OXYCODONE HCL IR 5 MG TABLET PO PRN ×2 (01:06→10:12)
[2017-11-21] MEDS: METOCLOPRAMIDE HCL INJ/PF 10 MG/2 ML SDV IV PRN ×3 (01:07→12:17)
[2017-11-21] MEDS: FENTANYL CITRATE INJ/PF 100 MCG/2 ML AMPUL IV PRN ×3 (01:07→12:17)
[2017-11-21 05:03] LABS: HEMATOCRIT 24.1 % (36.0-47.0); HEMOGLOBIN 8.2 g/dL (12.0-15.5); MEAN CORPUSCULAR HEMOGLOBIN 33.3 pg (27.0-33.4); MEAN CORPUSCULAR HGB CONC 34.2 g/dL (32.0-36.0); MEAN CORPUSCULAR VOLUME 97 fl (80-97); PLATELET COUNT 314 10^3/uL (150-450); RED BLOOD COUNT 2.48 10^6/uL (3.72-5.28); RED CELL DISTRIBUTION WIDTH 15.7 % (11.5-14.0); WHITE BLOOD COUNT 9.7 10^3/uL (4.0-10.5)
[2017-11-21 05:29] LABS: ANION GAP 8 (5-19); BLOOD UREA NITROGEN 14 mg/dL (7-20); CALCIUM 8.6 mg/dL (8.4-10.2); CARBON DIOXIDE 33 mmol/L (22-30); CHLORIDE 98 mmol/L (98-107); GLUCOSE 69 mg/dL (75-110); SODIUM 139.2 mmol/L (137-145)
--- NOTE | 2017-11-21 09:09 | PDOC CONSULTATION ---
Consultation Consult Date: 11/21/17 Attending physician:: TONNY BEAVER Consult reason:: Stage IV lung ca, severe pain, SOB, malignant pleural effusion History of Present Illness Admission Date/PCP: 11/20/17 14:54 Patient complains of: SOB/weakness, pain, stage iv breast ca History of Present Illness: EFFIE LOUIS is a 37 year old female with known history of stage IV breast cancer, currently on clinical trial, on paclitaxel arm, just received 1 dose of that about 2 weeks ago and was supposed to receive a second dose today. Has had multiple admissions recently related to pleural effusion, chest pain shortness of breath, most recently just discharged about 3 days ago, having severe pain at the tube site, not having much drainage from the tube. We did not treat her yesterday and we sent her straight to the hospital, here she had CT noncontrasted which indicated that the tube was in the pleural space but positioned towards the mediastinum, there was quite a bit of air there, there was a lot of air space disease on both sides of the lung. She is severely short of breath. She has a lot of pain at the tube site. She has been bedridden for the last week and a half at this point. Today we had a long discussion about end-of-life care, she agreed to DNR status, we discussed comfort care measures and she was agreeable to that. We discussed having our community hospice see her this morning. She was agreeable to that. Today we spent greater than 70 minutes in discussion and coordination of care. Past Medical History Cardiac Medical History: Denies: Coronary Artery Disease, Myocardial Infarction, Hypertension Pulmonary Medical History: Reports: Asthma - TEENAGER, Pneumonia - recently d /c'd 05/10/17, Respiratory Failure Denies: Bronchitis, Chronic Obstructive Pulmonary Disease (COPD), Tuberculosis Neurological Medical History: Reports: Migraine, Seizures Endocrine Medical History: Denies: Diabetes Mellitus Type 1, Diabetes Mellitus Type 2 Malignancy Medical History: Reports: Brain Cancer, Breast Cancer - right mastectomy. With metastases to brain and lungs and pleural fluid, Lung Cancer GI Medical History: Reports: Gastroesophageal Reflux Disease Denies: Hiatal Hernia Musculoskeltal Medical History: Reports: Fibromyalgia Denies: Arthritis Skin Medical History: Denies: Eczema Psychiatric Medical History: Denies: Depression Hematology: Denies: Anemia, Sickle Cell Disease Past Surgical History Past Surgical History: Reports: Amputation, Section - x2, Cholecystectomy, Mastectomy - Right right mastectomy with axillary node dissection, Orthopedic Surgery, Tonsillectomy, Tubal Ligation, Vascular Surgery - Left chest wall port Social History Lives with: Family Smoking Status: Unknown if Ever Smoked Frequency of Alcohol Use: None Hx Recreational Drug Use: No Drugs: None Hx Prescription Drug Abuse: No - Advance Directive Resuscitation Status: Do Not Resuscitate Family History Family History: DM, Other - Started to review with patient though Parental Family History Reviewed: Yes Children Family History Reviewed: Yes Sibling(s) Family History Reviewed.: Yes Medication/Allergy Home Medications: Albuterol Sulfate [Ventolin 0.083% Neb 2.5 mg/3 mL Ampul] 3 ml NEB Q4HP PRN Esomeprazole Magnesium [Nexium 24Hr] 20 mg PO DAILY 11/20/17 Famotidine [Pepcid 20 mg Tablet] 20 mg PO BID 11/20/17 Hydrocortisone Acetate [Anusol Hc 25 mg Supp.rect] 1 supp AK BIDP PRN 11/20/17 Oxycodone HCl 20 mg PO Q4HP PRN 11/20/17 Oxycodone HCl [Oxycontin] 40 mg PO Q12 11/20/17 Valproic Acid [Depakene] 500 mg PO Q12 11/20/17 Venlafaxine HCl ER [Effexor Xr 75 mg Cap.sr] 75 mg PO DAILY 11/20/17 Allergies/Adverse Reactions: Adhesive Bandage * [Adhesive Bandage] Allergy (Mild, Verified 10/18/17 09:52) Generalized rash adhesive tape [Adhesive Tape] Allergy (Mild, Verified 10/18/17 09:52) Generalized rash Review of Systems Constitutional: ABSENT: chills, fever(s), headache(s), weight gain, weight loss Eyes: ABSENT: visual disturbances Ears: ABSENT: hearing changes Cardiovascular: ABSENT: chest pain, dyspnea on exertion, edema, orthropnea, palpitations Respiratory: ABSENT: cough, hemoptysis Gastrointestinal: ABSENT: abdominal pain, constipation, diarrhea, hematemesis, hematochezia, nausea, vomiting Genitourinary: ABSENT: dysuria, hematuria Musculoskeletal: ABSENT: joint swelling Integumentary: ABSENT: rash, wounds Neurological: ABSENT: abnormal gait, abnormal speech, confusion, dizziness, focal weakness, syncope Psychiatric: ABSENT: anxiety, depression, homidical ideation, suicidal ideation Endocrine: ABSENT: cold intolerance, heat intolerance, polydipsia, polyuria Hematologic/Lymphatic: ABSENT: easy bleeding, easy bruising Physical Exam Vital Signs: Temp Pulse Resp BP Pulse Ox 98.2 F 86 17 109/76 100 11/21/17 05:06 11/21/17 05:06 11/21/17 05:06 11/21/17 05:06 11/21/17 05:06 Intake & Output 11/20/17 11/21/17 11/22/17 06:59 06:59 06:59 Weight 62.5 kg General appearance: PRESENT: no acute distress, well-developed, well-nourished Head exam: PRESENT: atraumatic, normocephalic Eye exam: PRESENT: conjunctiva pink, EOMI, PERRLA. ABSENT: scleral icterus Ear exam: PRESENT: normal external ear exam Mouth exam: PRESENT: moist, tongue midline Neck exam: ABSENT: carotid bruit, JVD, lymphadenopathy, thyromegaly Respiratory exam: PRESENT: clear to auscultation jose. ABSENT: rales, rhonchi, wheezes Cardiovascular exam: PRESENT: RRR. ABSENT: diastolic murmur, rubs, systolic murmur Pulses: PRESENT: normal dorsalis pedis pul Vascular exam: PRESENT: normal capillary refill GI/Abdominal exam: PRESENT: normal bowel sounds, soft. ABSENT: distended, guarding, mass, organolmegaly, rebound, tenderness Rectal exam: PRESENT: deferred Extremities exam: PRESENT: full ROM. ABSENT: calf tenderness, clubbing, pedal edema Neurological exam: PRESENT: alert, awake, oriented to person, oriented to place , oriented to time, oriented to situation, CN II-XII grossly intact. ABSENT: motor sensory deficit Psychiatric exam: PRESENT: appropriate affect, normal mood. ABSENT: homicidal ideation, suicidal ideation Skin exam: PRESENT: dry, intact, warm. ABSENT: cyanosis, rash Results Laboratory Results: 11/21/17 04:03 11/21/17 04:03 11/21/17 11/21/17 04:03 04:03 WBC 9.7 RBC 2.48 L Hgb 8.2 L Hct 24.1 L MCV 97 MCH 33.3 MCHC 34.2 RDW 15.7 H Plt Count 314 Sodium 139.2 Potassium 4.0 Chloride 98 Carbon Dioxide 33 H Anion Gap 8 BUN 14 Creatinine 1.05 Est GFR ( Amer) > 60 Est GFR (Non-Af Amer) > 60 Glucose 69 L Calcium 8.6 Impressions: Chest CT 11/20/17 00:00 IMPRESSION: 1. Increasing left upper lobe and lower lobe pneumonia. 2. There are several small pulmonary nodules on the right. These are nonspecific. Some can be seen on the prior study. 3. Thoracotomy tube is present in the right base. 4. There are some bubbles of air in the pleural space on the right and there is a small residual right pleural effusion. The air bubbles may relate to the placement of the large thoracotomy tube. Are there any clinical findings to suggest an empyema? Status: Image reviewed by me Assessment & Plan - Diagnosis (1) Metastatic breast cancer Is this a current diagnosis for this admission?: Yes Plan: I long discussion with patient, plan for hospice and discharge soon. She will need pain pump on discharge we will set that up. (2) Intractable pain Is this a current diagnosis for this admission?: Yes Plan: Secondary to disease burden, plan for pain pump initiation with Dilaudid. (3) Pleural effusion Is this a current diagnosis for this admission?: Yes Plan: Malignant pleural effusion, discussed case with Dr. Soe, we will have tube removed even though there is some minor drainage from it, it is causing a lot of pain and would not be good for comfort at this point. - Time Time Spent: Greater than 70 Minutes - Inpatient Certification Based on my medical assessment, after consideration of the patient's comorbidities, presenting symptoms, or acuity I expect that the services needed warrant INPATIENT care.: Yes I certify that my determination is in accordance with my understanding of Medicare's requirements for reasonable and necessary INPATIENT services [42 CFR 412.3e].: Yes Medical Necessity: Need for Pain Control
[2017-11-21] MEDS ORDERED: ENOXAPARIN SODIUM INJ 40 MG/0.4 ML DISP.SYRIN SUBCUT SCH (10:00)
[2017-11-21] MEDS: DOCUSATE SODIUM 100 MG CAPSULE PO SCH (10:53)
[2017-11-21] MEDS: VALPROATE SODIUM SYRUP 250 MG/5 ML UDCUP PO SCH (10:53)
[2017-11-21] MEDS: FAMOTIDINE 20 MG TABLET PO SCH (10:53)
[2017-11-21 10:55] VITALS: BP 103/79
--- NOTE | 2017-11-21 12:46 | Operative Report ---
Operative Report DATE OF SURGERY: 11/21/17 PREOPERATIVE DIAGNOSIS: Malignant effusion, chest tube in place. Pain at the chest tube site. POSTOPERATIVE DIAGNOSIS: Same OPERATION: Right sided chest tube removal SURGEON: BARBER ROTH ANESTHESIA: Other - None TISSUE REMOVED OR ALTERED: Chest tube removed COMPLICATIONS: None ESTIMATED BLOOD LOSS: None INTRAOPERATIVE FINDINGS: None PROCEDURE: Patient's right-sided chest tube dressings were removed. Sutures were cut and the chest tube removed without difficulty. Occlusive dressing was applied. Will have the patient change out the dressing in couple of days.
[2017-11-21] MEDS ORDERED: METOCLOPRAMIDE HCL INJ/PF 10 MG/2 ML SDV IV PRN (13:00)
[2017-11-21] MEDS ORDERED: ONDANSETRON HCL INJ/PF 4 MG/2 ML SDV IV PRN (13:00)
--- NOTE | 2017-11-21 13:20 | RADIOLOGY REPORT (SQ) ---
EXAM DESCRIPTION: CHEST SINGLE VIEW COMPLETED DATE/TIME: 11/21/2017 1:09 pm REASON FOR STUDY: s/p chest tube removal COMPARISON: CT chest 11/20/2017 AP chest 11/17/2017, Two-view chest 11/15/2017 EXAM PARAMETERS: NUMBER OF VIEWS: One view. TECHNIQUE: Single frontal radiographic view of the chest acquired. RADIATION DOSE: NA LIMITATIONS: None. FINDINGS: LUNGS AND PLEURA: Post removal right lower chest tube. Trace right basilar pneumothorax. Stable right basilar scarring or atelectasis. Fluffy alveolar infiltrate throughout the left upper lobe is present, patchy airspace disease left lo wer lobe. This is worrisome for pneumonia and is similar compared to chest CT 11/20/2017 and chest fi lms 11/15/2017. MEDIASTINUM AND HILAR STRUCTURES: No masses. Contour normal. HEART AND VASCULAR STRUCTURES: Heart normal in size. Normal vasculature. BONES: No acute findings. HARDWARE: Left-sided permanent central line tip superior vena cava. OTHER: Results discussed with Dr. Gibson IMPRESSION: No significant pneumothorax post right chest tube removal. Persistent left pneumonia. TECHNICAL DOCUMENTATION: JOB ID: [id number] [employer]- All Rights Reserved Reading location - IP/workstation name: [facility]
--- NOTE | 2017-11-21 15:54 | PDOC DISCHARGE SUMMARY ---
General - Admit/Disc Date/PCP Admission Date/Primary Care Provider: 11/20/17 14:54 Discharge Date: 11/21/17 - Discharge Diagnosis (1) Intractable pain Is this a current diagnosis for this admission?: Yes Summary: Pain improved on day of discharge. Per Oncology recommendation, home hospice will help set up [facility]. (2) Metastatic breast cancer Is this a current diagnosis for this admission?: Yes Summary: Family discussion today by Dr Ahn (primary oncologist), patient, and her mother. Decided to pursue hospice services given extent of cancer. She did meet with career development counselor who explained services provided. At discharge, I discontinued unnecessary medications to decrease pill burden. All questions answered. (3) Malignant pleural effusion Is this a current diagnosis for this admission?: Yes Summary: Long standing problem. Consulted general surgery today who removed right-sided chest tube dressings, cut sutures, and chest tube was removed. Procedure tolerated without difficulty. Occlusive dressing was applied. Per dia, will have the patient change out the dressing in couple of days. (4) Pneumonia Is this a current diagnosis for this admission?: Yes Summary: Has been treated with antibiotics during recent admissions. CT chest today re- demonstrated infiltrates. Patient is afebrile and HDS. She is satting well on RA. Mild leukocytosis with no left shift. Unclear if additional antibiotics will help at this point. Did not re-starting abx during admission or at discharge. Would avoid aggressive measures at this point as patient has opted for hospice care. (5) Hospice program care Is this a current diagnosis for this admission?: Yes Summary: Per above. Will go home with home hospice. Will defer to hospice team for assistance with pain management and other symptom issues. - Additional Information Resuscitation Status: Do Not Resuscitate Discharge Diet: As Tolerated Discharge Activity: Activity As Tolerated Home Medications: Albuterol Sulfate [Ventolin 0.083% Neb 2.5 mg/3 mL Ampul] 3 ml NEB Q4HP PRN Hydrocortisone Acetate [Anusol Hc 25 mg Supp.rect] 1 supp [place] BIDP PRN 11/20/17 Oxycodone HCl 20 mg PO Q4HP PRN 11/20/17 Oxycodone HCl [Oxycontin] 40 mg PO Q12 11/20/17 Valproic Acid [Depakene] 500 mg PO Q12 11/20/17 Venlafaxine HCl ER [Effexor Xr 75 mg Cap.sr] 75 mg PO DAILY 11/20/17 History of Present Illness History of Present Illness: EFFIE LOUIS is a 37 year old female with history of metastatic breast cancer with mets to the brain and known malignant right-sided pleural effusion. Patient has had multiple hospitalizations for complications related to her pleural effusion and intractable pain. She was recently admitted to [place] from 11/07- and then again from 11/11-11/17. Patient states that over the last 2-3 days she has developed worsening right sided pain at site of chest tube that is not controlled with current pain regimen. She also has associated SOB and nausea /vomiting. She has known right sided infiltrates that has been treated with antibiotics. She was suppose to follow with Dr. Marie regarding her chest tube on 11/19 however missed appointment due to pain and inability to leave her house. She was seen by her oncologist, Dr. Ahn today who recommended she come to the ED for further evaluation. She is now admitted to the hospitalist service for further management. Physical Exam Vital Signs: Temp Pulse Resp BP Pulse Ox 98.1 F 89 14 103/79 94 11/21/17 13:44 11/21/17 13:44 11/21/17 13:44 11/21/17 08:15 11/21/17 13:44 Intake & Output 11/20/17 11/21/17 11/22/17 06:59 06:59 06:59 Weight 62.5 kg General appearance: PRESENT: no acute distress, cooperative, other - Less pain today. Head exam: PRESENT: normocephalic Mouth exam: PRESENT: moist Respiratory exam: PRESENT: decreased breath sounds - R>L, rhonchi - Prominently on right side, unlabored, other - Right sided chest tube in place at time of exam Cardiovascular exam: PRESENT: +S1, +S2. ABSENT: tachycardia GI/Abdominal exam: PRESENT: soft. ABSENT: tenderness Neurological exam: PRESENT: alert, awake, CN II-XII grossly intact Psychiatric exam: PRESENT: appropriate affect, other - Very pleasant, more interactive today Skin exam: PRESENT: dry Results Laboratory Results: 11/21/17 04:03 11/21/17 04:03 11/21/17 11/21/17 04:03 04:03 WBC 9.7 RBC 2.48 L Hgb 8.2 L Hct 24.1 L MCV 97 MCH 33.3 MCHC 34.2 RDW 15.7 H Plt Count 314 Sodium 139.2 Potassium 4.0 Chloride 98 Carbon Dioxide 33 H Anion Gap 8 BUN 14 Creatinine 1.05 Est GFR ( Amer) > 60 Est GFR (Non-Af Amer) > 60 Glucose 69 L Calcium 8.6 Impressions: Chest CT 11/20/17 00:00 IMPRESSION: 1. Increasing left upper lobe and lower lobe pneumonia. 2. There are several small pulmonary nodules on the right. These are nonspecific. Some can be seen on the prior study. 3. Thoracotomy tube is present in the right base. 4. There are some bubbles of air in the pleural space on the right and there is a small residual right pleural effusion. The air bubbles may relate to the placement of the large thoracotomy tube. Are there any clinical findings to suggest an empyema? Chest X-Ray 11/21/17 00:00 IMPRESSION: No significant pneumothorax post right chest tube removal. Persistent left pneumonia. Qualifiers - * PATIENT BEING DISCHARGED WITH ANY OF THE FOLLOWING DIAGNOSIS: No Plan Discharge Plan: Home with home hospice Time Spent: Greater than 30 Minutes
== END 2017-11-21 15:18 | disposition hospice, home (50) ==
LOC: ER 13:29 → EH 14:54 → INTOOBSV 14:54 → 5 11-21 00:50
PROVIDERS: ADMIT Internal Medicine; ATTEND Internal Medicine
DX: T85.9XXA Unspecified complication of internal prosthetic device, implant and graft, initial encounter (principal); T85.848A Pain due to other internal prosthetic devices, implants and grafts, initial encounter; C50.919 Malignant neoplasm of unspecified site of unspecified female breast; C79.31 Secondary malignant neoplasm of brain; C78.00 Secondary malignant neoplasm of unspecified lung; J91.0 Malignant pleural effusion; J18.9 Pneumonia, unspecified organism; K21.9 Gastro-esophageal reflux disease without esophagitis; G89.29 Other chronic pain; R10.9 Unspecified abdominal pain; Z66 Do not resuscitate; Z51.5 Encounter for palliative care; Z79.899 Other long term (current) drug therapy; Z90.11 Acquired absence of right breast and nipple; Z74.01 Bed confinement status; Z98.51 Tubal ligation status; Z90.49 Acquired absence of other specified parts of digestive tract
CPT/HCPCS: 99285; 96374; 36415 ×2; 85025; 85027; 80048; 80053; 71045; 71250; J3490 ×8; J3010 ×2; J2765 ×2; J1650 ×2

== ENCOUNTER 2018-01-01 06:36 | Emergency (ER) | payer MEDICAID ==
[2018-01-01] MEDS ORDERED: IPRATROPIUM/ALBUTEROL 0.5-2.5 MG/3 ML AMPUL NEB ONE (07:08)
--- NOTE | 2018-01-01 07:08 | ER Document Report ---
ED Respiratory Problem - General Chief Complaint: Shortness Of Breath Stated Complaint: BREATHING DIFFICULTY Time Seen by Provider: 01/01/18 07:07 Notes: This is a 37-year-old female patient emergency department chief complaint shortness of breath. Patient has metastatic breast cancer with metastasis to the lung. Has pleural effusions. Has had multiple pleural effusions drainage performed in the past. Most recently of which was approximately 3 weeks ago. States that she feels like her lungs are filled up with fluid again. Is anxious. Feeling increased work of breathing. Patient currently on hospice. Denies any other major symptoms at this time other than air hunger. Most of the symptoms are located on the right side of her chest. TRAVEL OUTSIDE OF THE [place] IN LAST 30 DAYS: No - HPI Duration: Continuous, Worse/persistent - Related Data Allergies/Adverse Reactions: Adhesive Bandage * [Adhesive Bandage] Allergy (Mild, Verified 10/18/17 09:52) Generalized rash adhesive tape [Adhesive Tape] Allergy (Mild, Verified 10/18/17 09:52) Generalized rash Past Medical History - General Information source: Patient - Social History Smoking Status: Never Smoker Cigarette use (# per day): No Frequency of alcohol use: None Drug Abuse: None Lives with: Family, Spouse/Significant other Family History: Reviewed & Not Pertinent, DM, Other - Started to review with patient though - Past Medical History Cardiac Medical History: Denies: Hx Coronary Artery Disease, Hx Heart Attack, Hx Hypertension Pulmonary Medical History: Reports: Hx Asthma - TEENAGER, Hx Pneumonia - recently d/c'd 05/10/17, Hx Respiratory Failure Denies: Hx Bronchitis, Hx COPD, Hx Tuberculosis Neurological Medical History: Reports: Hx Migraine, Hx Seizures. Denies: Hx Cerebrovascular Accident Endocrine Medical History: Denies: Hx Diabetes Mellitus Type 1, Hx Diabetes Mellitus Type 2 Renal/ Medical History: Denies: Hx Peritoneal Dialysis Malignancy Medical History: Reports: Hx Brain Cancer, Hx Breast Cancer - right mastectomy. With metastases to brain and lungs and pleural fluid, Hx Lung Cancer GI Medical History: Reports: Hx Gastroesophageal Reflux Disease. Denies: Hx Hiatal Hernia Musculoskeletal Medical History: Denies Hx Arthritis, Reports Hx Fibromyalgia Skin Medical History: Denies Hx Eczema Psychiatric Medical History: Denies: Hx Depression Infectious Medical History: Past Surgical History: Reports: Hx Section - x2, Hx Cholecystectomy, Hx Mastectomy - Right right mastectomy with axillary node dissection, Hx Orthopedic Surgery, Hx Tonsillectomy, Hx Tubal Ligation, Hx Vascular Surgery - Left chest wall port - Immunizations Hx Diphtheria, Pertussis, Tetanus Vaccination: Yes Hx Pneumococcal Vaccination: 04/30/13 Review of Systems - Review of Systems Constitutional: No symptoms reported EENT: No symptoms reported Cardiovascular: Chest pain. denies: Dizziness, Edema Respiratory: Cough, Hurts to breathe, Short of breath Gastrointestinal: No symptoms reported Genitourinary: No symptoms reported Female Genitourinary: No symptoms reported Musculoskeletal: No symptoms reported Skin: No symptoms reported Hematologic/Lymphatic: No symptoms reported Neurological/Psychological: No symptoms reported Physical Exam - Vital signs Vitals: Pulse Ox 100 01/01/18 06:52 Interpretation: Normal - General General appearance: Appears well, Alert - HEENT Head: Normocephalic, Atraumatic Eyes: Normal Pupils: PERRL - Respiratory Respiratory status: No respiratory distress Chest status: Nontender Breath sounds: Other - Decreased breath sounds bilaterally. Decreased breath sounds greater on the right than the left. Chest palpation: Normal - Cardiovascular Rhythm: Regular Heart sounds: Normal auscultation Murmur: No Notes: Moderate tenderness to palpation right anterior chest wall. - Abdominal Inspection: Normal Distension: No distension Bowel sounds: Normal Tenderness: Nontender Organomegaly: No organomegaly - Back Back: Normal, Nontender - Extremities General upper extremity: Normal inspection, Nontender, Normal color, Normal ROM , Normal temperature General lower extremity: Normal inspection, Nontender, Normal color, Normal ROM , Normal temperature, Normal weight bearing. No: Spring's sign - Neurological Neuro grossly intact: Yes Cognition: Normal Orientation: AAOx4 [place] Coma Scale Eye Opening: Spontaneous Cassidy Coma Scale Verbal: Oriented Cassidy Coma Scale Motor: Obeys Commands Cassidy Coma Scale Total: 15 Speech: Normal Motor strength normal: LUE, RUE, LLE, RLE Sensory: Normal - Psychological Associated symptoms: Normal affect, Normal mood - Skin Skin Temperature: Warm Skin Moisture: Dry Skin Color: Normal Course - Re-evaluation Re-evalutation: 01/01/18 13:34 She then has pleural effusion seen on x-ray. Consult with radiology. They did an ultrasound-guided thoracentesis with no complications. Patient feeling much better. Pain was controlled with Dilaudid, Compazine. At this time feel comfortable discharging. Stable for discharge at this time. 01/01/18 13:36 Chest X-Ray 01/01/18 07:08 IMPRESSION: 1. Right pleural effusion with right basilar opacities which may be related to atelectasis or consolidation. 2011 [employer]- All Rights Reserved Thoracentesis Ultrasound 01/01/18 07:51 IMPRESSION: SUCCESSFUL THORACENTESIS USING ultrasound GUIDANCE. Laboratory 01/01/18 01/01/18 01/01/18 07:48 07:48 07:48 WBC 7.8 RBC 3.12 L Hgb 9.5 L Hct 28.1 L MCV 90 MCH 30.6 MCHC 34.0 RDW 15.6 H Plt Count 372 Seg Neutrophils % 70.7 Lymphocytes % 16.9 Monocytes % 10.6 Eosinophils % 0.9 Basophils % 0.9 Absolute Neutrophils 5.5 Absolute Lymphocytes 1.3 Absolute Monocytes 0.8 Absolute Eosinophils 0.1 Absolute Basophils 0.1 PT 14.6 INR 1.08 APTT 34.9 Sodium 140.0 Potassium 4.0 Chloride 106 Carbon Dioxide 27 Anion Gap 7 BUN 7 Creatinine 0.61 Est GFR ( Amer) > 60 Est GFR (Non-Af Amer) > 60 Glucose 84 Calcium 9.2 Total Bilirubin 0.3 Direct Bilirubin 0.3 Neonat Total Bilirubin Not Reportable Neonat Direct Bilirubin Not Reportable Neonat Indirect Bili Not Reportable AST 11 L ALT 15 Alkaline Phosphatase 67 Total Protein 7.1 Albumin 3.4 L - Vital Signs Vital signs: Temp Pulse Resp BP Pulse Ox 98.4 F 18 116/86 H 100 01/01/18 07:00 01/01/18 10:01 01/01/18 10:01 01/01/18 10:01 - Laboratory Result Diagrams: 01/01/18 07:48 01/01/18 07:48 Laboratory results interpreted by me: 01/01/18 01/01/18 07:48 07:48 RBC 3.12 L Hgb 9.5 L Hct 28.1 L RDW 15.6 H AST 11 L Albumin 3.4 L Discharge - Discharge Clinical Impression: S/P thoracentesis, Recurrent right pleural effusion, Metastatic breast cancer Condition: Good Disposition: HOME, SELF-CARE Additional Instructions: You had fluid on her lungs called a pleural effusion. A procedure was performed called a thoracentesis to remove fluid from your lungs. In the event that you developed sudden shortness of breath or worsening symptoms it would be very important to return for repeat evaluation. Continue to take your regular medications. Please follow-up with your oncologist and your medical team for further input on your medical treatment plans. Referrals: MARTINEZ MORATAYA MD [Primary Care Provider] - Follow up as needed
--- NOTE | 2018-01-01 07:28 | RADIOLOGY REPORT (SQ) ---
EXAM DESCRIPTION: XR CHEST 1 VIEW COMPLETED DATE/TME: 01/01/2018 07:08 CLINICAL HISTORY: 37 years, Female, sob COMPARISON: 11/21/2017 FINDINGS: Single view of the chest. Left-sided Mediport. Improved aeration of the left lung. Right mid and lower lung airspace opacity with right pleural effusion. No pneumothorax. No acute osseous abnormalities. No abnormalities of the upper abdomen to IMPRESSION: 1. Right pleural effusion with right basilar opacities which may be related to atelectasis or consolidation. 2011 [employer]- All Rights Reserved
[2018-01-01] MEDS ORDERED: FENTANYL CITRATE INJ/PF 100 MCG/2 ML AMPUL IV ONE (07:50)
[2018-01-01 07:59] LABS: ABSOLUTE BASOPHILS # (AUTO) 0.1 10^3/uL (0.0-0.2); ABSOLUTE EOSINOPHILS # (AUTO) 0.1 10^3/uL (0.0-0.6); ABSOLUTE LYMPHOCYTES (AUTO) 1.3 10^3/uL (0.5-4.7); ABSOLUTE MONOCYTES (AUTO) 0.8 10^3/uL (0.1-1.4); ABSOLUTE NEUT (AUTO) 5.5 10^3/uL (1.7-8.2); BASOPHILS % (AUTO) 0.9 % (0-2); EOSINOPHILS % (AUTO) 0.9 % (0-6); HEMATOCRIT 28.1 % (36.0-47.0); HEMOGLOBIN 9.5 g/dL (12.0-15.5); LYMPHOCYTES % (AUTO) 16.9 % (13-45); MEAN CORPUSCULAR HEMOGLOBIN 30.6 pg (27.0-33.4); MEAN CORPUSCULAR VOLUME 90 fl (80-97); MONOCYTES % (AUTO) 10.6 % (3-13); PLATELET COUNT 372 10^3/uL (150-450); RED BLOOD COUNT 3.12 10^6/uL (3.72-5.28); RED CELL DISTRIBUTION WIDTH 15.6 % (11.5-14.0); SEGMENTED NEUTROPHILS % (AUTO) 70.7 % (42-78); TOTAL CELLS COUNTED % (AUTO) 100 %; WHITE BLOOD COUNT 7.8 10^3/uL (4.0-10.5)
[2018-01-01 08:23] LABS: INTERNATIONAL RATION (INR) 1.08; PROTHROMBIN TIME 14.6 SEC (11.4-15.4)
[2018-01-01 08:24] LABS: PARTIAL THROMBOPLASTIN TIME 34.9 SEC (23.5-35.8)
[2018-01-01 08:26] LABS: ALANINE AMINOTRANSFERASE 15 U/L (9-52); ALBUMIN 3.4 g/dL (3.5-5.0); ALKALINE PHOSPHATASE 67 U/L (38-126); ANION GAP 7 (5-19); ASPARTATE AMINO TRANSFERASE 11 U/L (14-36); BILIRUBIN,DIRECT 0.3 mg/dL (0.0-0.4); BILIRUBIN,TOTAL 0.3 mg/dL (0.2-1.3); BLOOD UREA NITROGEN 7 mg/dL (7-20); CALCIUM 9.2 mg/dL (8.4-10.2); CARBON DIOXIDE 27 mmol/L (22-30); CHLORIDE 106 mmol/L (98-107); GLUCOSE 84 mg/dL (75-110); TOTAL PROTEIN 7.1 g/dL (6.3-8.2)
[2018-01-01] MEDS ORDERED: HYDROMORPHONE HCL INJ/PF 2 MG/ML AMPULE IV ONE (08:52)
[2018-01-01] MEDS ORDERED: PROCHLORPERAZINE EDISYLATE INJ 10 MG/2 ML VIAL IV ONE (09:02)
[2018-01-01] MEDS ORDERED: LIDOCAINE 1% INJ-PF (10 MG/ML) 30 ML SDV ONE (10:28)
--- NOTE | 2018-01-01 11:43 | RADIOLOGY REPORT (SQ) ---
EXAM DESCRIPTION: U/S THORACENTESIS WITH IMAGING COMPLETED DATE/TIME: 01/01/2018 11:30 am REASON FOR STUDY: right pleural effusion COMPARISON: None. RADIATION DOSE: None LIMITATIONS: None. PROCEDURE: Procedure, risks, benefit, and alternative explained to patient who then gave written con sent. The right posterior chest wall was marked using ultrasound guidance. A time-out was called fo r correct marking verification. Chest prepped and draped using sterile technique. Local anesthesia a chieved using 10 ml of 1% lidocaine injection. A 5 Surinamese pleural drainage catheter was introduced i nto the right pleural space. Fluid was aspirated. The catheter was removed and the entry site was c overed with sterile bandage. No immediate complications noted. Images acquired during the procedure were stored on PACS. FINDINGS: ENTRY SITE: Right chest wall posterior FLUID VOLUME: 300 mL FLUID ANALYSIS: Straw-colored OTHER: No other significant fine IMPRESSION: SUCCESSFUL THORACENTESIS USING ultrasound GUIDANCE. COMMENT: Patient medication list reviewed: Yes TECHNICAL DOCUMENTATION: JOB ID: [id number] [employer]- All Rights Reserved Reading location - IP/workstation name: [email or web address]
--- NOTE | 2018-01-01 11:45 | RADIOLOGY REPORT (SQ) ---
EXAM DESCRIPTION: CHEST SINGLE VIEW COMPLETED DATE/TIME: 01/01/2018 11:29 am REASON FOR STUDY: S/P RT THORACENTESIS COMPARISON: 01/01/2018 EXAM PARAMETERS: NUMBER OF VIEWS: One view. TECHNIQUE: Single frontal radiographic view of the chest acquired. RADIATION DOSE: NA LIMITATIONS: None. FINDINGS: LUNGS AND PLEURA: There has been interval decrease in the size of the right pleural effusi on status post thoracentesis. No pneumothorax is seen. The left lung remains clear and well expande d MEDIASTINUM AND HILAR STRUCTURES: No masses. Contour normal. HEART AND VASCULAR STRUCTURES: Heart normal in size. Normal vasculature. BONES: No acute findings. HARDWARE: Left-sided central line is unchanged in position. OTHER: No other significant finding. IMPRESSION: No evidence for pneumothorax post thoracentesis. TECHNICAL DOCUMENTATION: JOB ID: [id number] [employer]- All Rights Reserved Reading location - IP/workstation name: [email or web address]
--- NOTE | 2018-01-01 13:52 | RADIOLOGY REPORT (SQ) ---
EXAM DESCRIPTION: CHEST SINGLE VIEW COMPLETED DATE/TIME: 01/01/2018 1:39 pm REASON FOR STUDY: 2 HOURS S/P RT THORACENTESIS COMPARISON: 01/01/2018 EXAM PARAMETERS: NUMBER OF VIEWS: One view. TECHNIQUE: Single frontal radiographic view of the chest acquired. RADIATION DOSE: NA LIMITATIONS: None. FINDINGS: LUNGS AND PLEURA: Stable pulmonary exam, again demonstrating a right-sided pleural effusio n. No pneumothorax. MEDIASTINUM AND HILAR STRUCTURES: No masses. Contour normal. HEART AND VASCULAR STRUCTURES: Heart normal in size. Normal vasculature. BONES: No acute findings. HARDWARE: Left-sided Port-A-Cath, stable. Right axillary surgical clips. OTHER: No other significant finding. IMPRESSION: No evidence of pneumothorax status post thoracentesis. TECHNICAL DOCUMENTATION: JOB ID: [id number] [employer]- All Rights Reserved Reading location - IP/workstation name: [email or web address]
[2018-01-01 14:16] VITALS: BP 125/83
--- NOTE | 2018-01-01 15:09 | EKG REPORT ---
SEVERITY:- BORDERLINE ECG - SINUS RHYTHM PROBABLE LEFT ATRIAL ABNORMALITY : Confirmed by: Robina Chavez MD 01-Jan-2018 15:08:46
== END 2018-01-01 14:15 | disposition home or self-care (01) ==
LOC: ER 06:36
DX: J90 Pleural effusion, not elsewhere classified (principal); C50.919 Malignant neoplasm of unspecified site of unspecified female breast; C78.00 Secondary malignant neoplasm of unspecified lung; F41.9 Anxiety disorder, unspecified; J45.909 Unspecified asthma, uncomplicated; R06.02 Shortness of breath; R07.1 Chest pain on breathing; R05 Cough; Z91.048 Other nonmedicinal substance allergy status; Z85.841 Personal history of malignant neoplasm of brain
CPT/HCPCS: 93005; 36591; 94640; 99285; 96374; 96375; 36415; 85025; 85610; 85730; 80053; 71045; 32555; 93010; J3010; J3490; J1170; J0780; J7620

== ENCOUNTER 2018-01-05 01:15 | Inpatient (IN) | payer MEDICAID ==
[2018-01-05] MEDS ORDERED: HYDROMORPHONE HCL INJ/PF 2 MG/ML AMPULE IV ONE (01:42)
--- NOTE | 2018-01-05 01:48 | ER Document Report ---
ED General - General Chief Complaint: Breathing Difficulty Stated Complaint: DIFFICULTY BREATHING Time Seen by Provider: 01/05/18 01:33 Mode of Arrival: Ambulatory Information source: Patient Notes: 37-year-old female with metastatic breast cancer and hospice presents with complaint of headache, chest pain, shortness of breath, coughing up blood,fever and myalgias. Patient states the symptoms have been ongoing but worsened today. She did call her hospice nurse at [facility] who did come to her house today but stated she was unable to provide the patient any medications until Saturday. Patient is no longer going through any chemotherapy at this time. TRAVEL OUTSIDE OF THE [place] IN LAST 30 DAYS: No - HPI Onset: Other Onset/Duration: Gradual, Persistent, Worse Quality of pain: Achy, Throbbing Severity: Moderate Pain Level: 2 Associated symptoms: Body/muscle aches, Chest pain, Productive cough, Fever, Headache, Hurts to breath, Nausea, Shortness of breath, Weakness Exacerbated by: Movement, Coughing Relieved by: Denies Similar symptoms previously: Yes Recently seen / treated by doctor: Yes - Related Data Allergies/Adverse Reactions: Adhesive Bandage * [Adhesive Bandage] Allergy (Mild, Verified 01/05/18 01:25) Generalized rash adhesive tape [Adhesive Tape] Allergy (Mild, Verified 01/05/18 01:25) Generalized rash Past Medical History - General Information source: Patient, [facility] Records - Social History Smoking Status: Former Smoker Frequency of alcohol use: None Drug Abuse: None Lives with: Spouse/Significant other Family History: Reviewed & Not Pertinent, DM, Other - Started to review with patient though Patient has suicidal ideation: No Patient has homicidal ideation: No - Past Medical History Cardiac Medical History: Denies: Hx Coronary Artery Disease, Hx Heart Attack, Hx Hypertension Pulmonary Medical History: Reports: Hx Asthma - TEENAGER, Hx Pneumonia - recently d/c'd 05/10/17, Hx Respiratory Failure Denies: Hx Bronchitis, Hx COPD, Hx Tuberculosis Neurological Medical History: Reports: Hx Migraine, Hx Seizures. Denies: Hx Cerebrovascular Accident Endocrine Medical History: Denies: Hx Diabetes Mellitus Type 1, Hx Diabetes Mellitus Type 2 Renal/ Medical History: Denies: Hx Peritoneal Dialysis Malignancy Medical History: Reports: Hx Brain Cancer, Hx Breast Cancer - right mastectomy. With metastases to brain and lungs and pleural fluid, Hx Lung Cancer GI Medical History: Reports: Hx Gastroesophageal Reflux Disease. Denies: Hx Hiatal Hernia Musculoskeletal Medical History: Denies Hx Arthritis, Reports Hx Fibromyalgia Skin Medical History: Denies Hx Eczema Psychiatric Medical History: Denies: Hx Depression Infectious Medical History: Past Surgical History: Reports: Hx Section - x2, Hx Cholecystectomy, Hx Mastectomy - Right right mastectomy with axillary node dissection, Hx Orthopedic Surgery, Hx Tonsillectomy, Hx Tubal Ligation, Hx Vascular Surgery - Left chest wall port - Immunizations Hx Diphtheria, Pertussis, Tetanus Vaccination: Yes Hx Pneumococcal Vaccination: 04/30/13 Review of Systems - Review of Systems Constitutional: Fever, Malaise, Weakness, Weight loss, Recent illness EENT: Throat pain Cardiovascular: Chest pain, Lightheaded Respiratory: Cough, Hurts to breathe, Short of breath Gastrointestinal: Nausea, Vomiting Genitourinary: No symptoms reported Female Genitourinary: No symptoms reported Musculoskeletal: Muscle pain Skin: denies: Rash Hematologic/Lymphatic: Enlarged lymph nodes Neurological/Psychological: Weakness, Headaches -: Yes All other systems reviewed and negative Physical Exam - Vital signs Vitals: Temp Pulse Resp BP Pulse Ox 98.9 F 102 H 18 119/88 H 95 01/05/18 01:26 01/05/18 01:26 01/05/18 01:26 01/05/18 01:26 01/05/18 01:26 - Notes Notes: PHYSICAL EXAMINATION: GENERAL: Ill-appearing, cachectic, moderate distress HEAD: Atraumatic, normocephalic. EYES: Pupils equal round and reactive to light, extraocular movements intact, conjunctiva are normal. ENT: Nares patent, oropharynx clear without exudates. Moist mucous membranes. NECK: Normal range of motion, supple without lymphadenopathy LUNGS: Diminished lung sounds in the right lower lung field. No wheezes rales or rhonchi. HEART: Regular rate and rhythm without murmurs ABDOMEN: Soft, nontender, nondistended abdomen. No guarding, no rebound. No masses appreciated. Female : deferred Musculoskeletal: Normal range of motion, no pitting or edema. No cyanosis. NEUROLOGICAL: Cranial nerves grossly intact. Normal speech, normal gait. Normal sensory, motor exams PSYCH: Normal mood, normal affect. SKIN: Warm, Dry, normal turgor, no rashes or lesions noted. Course - Re-evaluation Re-evalutation: Chest X-Ray 01/05/18 01:34 IMPRESSION: 1. Right lower lobe consolidation compatible with pneumonia with possible small right parapneumonic effusion. 01/06/18 14:12 Ms. Sanabria is a 37-year-old female with metastatic cancer who is now a DNR and on hospice and not undergoing any further chemotherapy. She presented today after her hospice nurse informed her that she would be unable to provide her with any medications until next week. Patient reports that she has been febrile , coughing, short of breath and with an excruciating headache. Chest x-ray was obtained that did show a new right-sided pneumonia. Because of her recent hospitalizations and procedures she was treated for HCAP with vancomycin and Zosyn. Minimal workup was performed because of the patient's hospice and DNR status. She was provided pain medication and medication for her headaches. Patient will be admitted to the hospitalist. - Vital Signs Vital signs: Temp Pulse Resp BP Pulse Ox 97.9 F 85 14 114/67 96 01/06/18 11:43 01/06/18 12:25 01/06/18 12:25 01/06/18 11:43 01/06/18 12:25 - Laboratory Result Diagrams: 01/05/18 07:50 01/05/18 07:50 - Diagnostic Test Radiology reviewed: Image reviewed, Reports reviewed Discharge - Discharge Clinical Impression: HCAP (healthcare-associated pneumonia), Metastatic breast cancer, Cough, Pain, neoplasm-related, Brain metastases Headache Qualifiers: Headache type: unspecified Headache chronicity pattern: unspecified pattern Intractability: not intractable Qualified Code(s): R51 - Headache Condition: Critical Disposition: ADMITTED INPATIENT Admitting Provider: Hospitalist Unit Admitted: Medical Floor
[2018-01-05] MEDS ORDERED: DIPHENHYDRAMINE HCL 50 MG/ML VIAL IV ONE (02:26)
[2018-01-05] MEDS ORDERED: METOCLOPRAMIDE HCL INJ/PF 10 MG/2 ML SDV IV ONE (02:26)
[2018-01-05] MEDS ORDERED: NORMAL SALINE 500 ML IV ONE (02:26)
--- NOTE | 2018-01-05 02:28 | RADIOLOGY REPORT (SQ) ---
EXAM DESCRIPTION: XR CHEST 1 VIEW COMPLETED DATE/TME: 01/05/2018 01:34 CLINICAL HISTORY: sob COMPARISON: None. FINDINGS: Single frontal view of the chest. Left IJ Mediport with tip in the high right atrium. The cardiomediastinal silhouette has normal size and contour. Right lower lobe consolidation with possible parapneumonic effusion. Left lung is clear. Postoperative change in the right axilla. Osseous structures are stable. Upper abdominal soft tissues are unremarkable. IMPRESSION: 1. Right lower lobe consolidation compatible with pneumonia with possible small right parapneumonic effusion.
[2018-01-05] MEDS ORDERED: VANCOMYCIN HCL INJ 1000 MG VIAL IV ONE (02:48)
[2018-01-05] MEDS ORDERED: PIPERACILLIN/TAZOBACTAM 3.375 GM VIAL IV ONE (02:48)
[2018-01-05] MEDS ORDERED: FENTANYL CITRATE INJ/PF 100 MCG/2 ML AMPUL IV PRN (03:19)
[2018-01-05] MEDS ORDERED: LEVALBUTEROL HCL NEB 0.63 MG/3 ML AMPUL NEB PRN (03:21)
[2018-01-05] MEDS ORDERED: ACETAMINOPHEN 325 MG TABLET PO PRN (03:22)
[2018-01-05] MEDS ORDERED: VANCOMYCIN HCL 0 MG in DEXTROSE 5%-WATER 250 ML IV NR (03:30)
[2018-01-05] MEDS ORDERED: CEFEPIME 1 GM/D5W RTU 1 GM/50 ML RTUPB IV ONE ×2 (03:45→06:29)
[2018-01-05] MEDS: IPRATROPIUM/ALBUTEROL 0.5-2.5 MG/3 ML AMPUL NEB SCH ×5 (04:02→20:10)
[2018-01-05] MEDS: LORAZEPAM INJ 2 MG/1 ML VIAL IV PRN ×2 (04:02→20:51)
--- NOTE | 2018-01-05 04:17 | PDOC H&P ---
History of Present Illness Admission Date/PCP: ANDREA HOPPER MD Patient complains of: Hemoptysis and shortness of breath History of Present Illness: EFFIE LOUIS is a 37 year old woman coming in with a history of metastatic breast cancer, including brain mets, with recurrent malignant right-sided pleural effusion. She has had multiple image procedures for the effusion. Within the past several months the patient has stopped aggressive cancer care due to terminal illness and poor response to treatment. She has recently started on home hospice care. She tells me that on the evening prior to this admission she called her home hospice nurse who came to the house and was unable to provide medications for pain control until Saturday. As the patient was having severe dyspnea, chest pain and headache she decided to come to the ER. She tells me that she has been getting worsening chest discomfort, worse with deep breathing, over the past few days. She has been coughing and now has started to cough up some blood. No fevers at home. She is feeling very weak. She has a headache. She has nausea but no emesis. In the ER chest x-ray was performed and she has been diagnosed with pneumonia. She would meet criteria for healthcare associated pneumonia. He is interested in treatment for the pneumonia. She does confirm her DNR/DNI status. She is being admitted to the hospitalist service for continued care. Past Medical History Cardiac Medical History: Denies: Coronary Artery Disease, Myocardial Infarction, Hypertension Pulmonary Medical History: Reports: Asthma - TEENAGER, Pneumonia - recently d /c'd 05/10/17, Respiratory Failure Denies: Bronchitis, Chronic Obstructive Pulmonary Disease (COPD), Tuberculosis Neurological Medical History: Reports: Migraine, Seizures Endocrine Medical History: Denies: Diabetes Mellitus Type 1, Diabetes Mellitus Type 2 Malignancy Medical History: Reports: Breast Cancer - right mastectomy. With metastases to brain and lungs and pleural fluid, Other - breast CA with mets to lungs and brain GI Medical History: Reports: Gastroesophageal Reflux Disease Denies: Hiatal Hernia Musculoskeltal Medical History: Reports: Fibromyalgia Denies: Arthritis Skin Medical History: Denies: Eczema Psychiatric Medical History: Denies: Depression Hematology: Denies: Anemia, Sickle Cell Disease Past Surgical History Past Surgical History: Reports: Amputation, Section - x2, Cholecystectomy, Mastectomy - Right right mastectomy with axillary node dissection, Orthopedic Surgery, Tonsillectomy, Tubal Ligation, Vascular Surgery - Left chest wall port Social History Information Source: Patient, Relative Smoking Status: Never Smoker Frequency of Alcohol Use: None Hx Recreational Drug Use: No Drugs: None Hx Prescription Drug Abuse: No Past Social History Note: She has 2 children that are equally cared for by both her/her and her ex -. Her current is at her bedside and very supportive. - Advance Directive Resuscitation Status: Do Not Resuscitate Surrogate healthcare decision maker:: Family History Family History: Reviewed & Not Pertinent, DM, Other - Started to review with patient though Parental Family History Reviewed: Yes Children Family History Reviewed: Yes Sibling(s) Family History Reviewed.: Yes Medication/Allergy Home Medications: Albuterol Sulfate [Ventolin 0.083% Neb 2.5 mg/3 mL Ampul] 3 ml NEB Q4HP PRN Hydrocortisone Acetate [Anusol Hc 25 mg Supp.rect] 1 supp SD BIDP PRN 11/20/17 Oxycodone HCl 20 mg PO Q4HP PRN 11/20/17 Oxycodone HCl [Oxycontin] 40 mg PO Q12 11/20/17 Valproic Acid [Depakene] 500 mg PO Q12 11/20/17 Venlafaxine HCl ER [Effexor Xr 75 mg Cap.sr] 75 mg PO DAILY 11/20/17 Allergies/Adverse Reactions: Adhesive Bandage * [Adhesive Bandage] Allergy (Mild, Verified 01/05/18 01:25) Generalized rash adhesive tape [Adhesive Tape] Allergy (Mild, Verified 01/05/18 01:25) Generalized rash Review of Systems ROS unobtainable: Due to mental status, Other - She is able to share the following information with me Constitutional: PRESENT: headache(s) Eyes: ABSENT: visual disturbances Cardiovascular: PRESENT: chest pain, dyspnea on exertion. ABSENT: edema Respiratory: PRESENT: cough, hemoptysis Gastrointestinal: PRESENT: nausea. ABSENT: abdominal pain, vomiting Neurological: ABSENT: confusion, syncope Psychiatric: PRESENT: anxiety Physical Exam Vital Signs: Temp Pulse Resp BP Pulse Ox 98.9 F 102 H 18 119/88 H 95 01/05/18 01:26 01/05/18 01:26 01/05/18 01:26 01/05/18 01:26 01/05/18 01:26 Intake & Output 01/03/18 01/04/18 01/05/18 06:59 06:59 06:59 Weight 64 kg General appearance: PRESENT: mild distress Head exam: PRESENT: atraumatic, normocephalic Eye exam: ABSENT: conjunctival injection, scleral icterus Mouth exam: PRESENT: dry mucosa Neck exam: PRESENT: lymphadenopathy. ABSENT: tracheal deviation Respiratory exam: PRESENT: decreased breath sounds, rales, rhonchi. ABSENT: unlabored, wheezes Cardiovascular exam: PRESENT: tachycardia. ABSENT: systolic murmur Pulses: PRESENT: normal radial pulses GI/Abdominal exam: PRESENT: normal bowel sounds, soft. ABSENT: distended, guarding, tenderness Rectal exam: PRESENT: deferred Extremities exam: ABSENT: pedal edema Neurological exam: PRESENT: awake, oriented to person, oriented to place, oriented to situation, CN II-XII grossly intact. ABSENT: alert, aphasic Psychiatric exam: PRESENT: anxious, other - Teary Skin exam: PRESENT: dry, warm, other - Right prior chest tube site with retained suture covered with a bandage, multiple firm nodules scattered over her back and torso Results Impressions: Chest X-Ray 01/05/18 01:34 IMPRESSION: 1. Right lower lobe consolidation compatible with pneumonia with possible small right parapneumonic effusion. Assessment & Plan - Diagnosis (1) HCAP (healthcare-associated pneumonia) Is this a current diagnosis for this admission?: Yes Plan: On exam patient has decreased right breath sounds with rales at the right base. Chest x-ray shows right infiltrate suggestive of pneumonia. Small right effusion. Secondary to risk of healthcare associated infection she is on cefepime and vancomycin having received 1 dose of Zosyn in the ER. Sputum and blood cultures will be ordered. (2) Headache Qualifiers: Headache type: unspecified Headache chronicity pattern: unspecified pattern Intractability: not intractable Qualified Code(s): R51 - Headache Is this a current diagnosis for this admission?: Yes Plan: Patient states that she has migraines from time to time. She also tells me that before her brain radiation and during she had headaches. She has not had a head scan recently. She states that fentanyl helps with the headache pain and so fentanyl has been ordered. Should her headache not subside we can consider CT scan of the head to evaluate her brain metastases. (3) Metastatic breast cancer Is this a current diagnosis for this admission?: Yes Plan: Patient has stopped aggressive oncology care per my review of her medical record. It appears that with the assistance of Dr. Ahn she has opted for hospice care. She does however tell me that she has an appointment with her specialist at [facility] on Saturday and she very much like to get to that appointment. We discussed that she really probably will need to take this 1 day at a time and see how she feels on Saturday given the fact that she has pneumonia and is extremely weakened at this time. She has been receiving hospice care in the home but this evening she states that her hospice nurse stated that there is nothing that they could do for her in the home until Saturday. I will consult our mobile home laborer to see if we can have a conversation with the hospice company to see what barriers there are to treating her in the home. (4) Pain, neoplasm-related Is this a current diagnosis for this admission?: Yes Plan: Patient received 1 mg of Dilaudid in the ER and she felt some better. She and her tell me that fentanyl is a more effective pain medication for her and so I have ordered 50 mics of fentanyl IV every 2 hours as needed pain. (5) Constipation due to opioid therapy Is this a current diagnosis for this admission?: Yes Plan: Depending on how she is doing tomorrow will consider adding her stool regimen to her orders. She is currently just starting to take ice and a little bit of liquid and I do not want to risk aspiration or choking at this point. - Time Time Spent: 50 to 70 Minutes Medications reviewed and adjusted accordingly: Yes - Inpatient Certification Based on my medical assessment, after consideration of the patient's comorbidities, presenting symptoms, or acuity I expect that the services needed warrant INPATIENT care.: Yes I certify that my determination is in accordance with my understanding of Medicare's requirements for reasonable and necessary INPATIENT services [42 CFR 412.3e].: Yes Medical Necessity: Need for Pain Control, Need for IV Antibiotics
[2018-01-05] MEDS: ONDANSETRON HCL INJ/PF 4 MG/2 ML SDV IV PRN ×2 (06:08→20:51)
[2018-01-05] MEDS: FENTANYL CITRATE INJ/PF 100 MCG/2 ML AMPUL IV PRN ×5 (06:56→20:50)
[2018-01-05] MEDS: CEFEPIME 1 GM/D5W RTU 1 GM/50 ML RTUPB IV SCH ×2 (07:04→19:36)
[2018-01-05 08:05] LABS: HEMATOCRIT 25.4 % (36.0-47.0); HEMOGLOBIN 8.6 g/dL (12.0-15.5); MEAN CORPUSCULAR HEMOGLOBIN 30.4 pg (27.0-33.4); MEAN CORPUSCULAR VOLUME 90 fl (80-97); PLATELET COUNT 294 10^3/uL (150-450); RED BLOOD COUNT 2.84 10^6/uL (3.72-5.28); RED CELL DISTRIBUTION WIDTH 15.8 % (11.5-14.0); WHITE BLOOD COUNT 6.8 10^3/uL (4.0-10.5)
[2018-01-05 08:29] LABS: ANION GAP 11 (5-19); BLOOD UREA NITROGEN 6 mg/dL (7-20); CALCIUM 8.6 mg/dL (8.4-10.2); CARBON DIOXIDE 24 mmol/L (22-30); CHLORIDE 103 mmol/L (98-107); GLUCOSE 95 mg/dL (75-110); POTASSIUM 3.4 mmol/L (3.6-5.0); SODIUM 138.1 mmol/L (137-145)
[2018-01-05 08:39] LABS: INTERNATIONAL RATION (INR) 1.13; PARTIAL THROMBOPLASTIN TIME 38.1 SEC (23.5-35.8); PROTHROMBIN TIME 15.1 SEC (11.4-15.4)
[2018-01-05] MEDS: VANCOMYCIN HCL 1,500 MG in DEXTROSE 5%-WATER 250 ML IV SCH (14:25)
[2018-01-05] MEDS ORDERED: CEFEPIME 1 GM/D5W RTU 1 GM/50 ML RTUPB IV SCH (18:00)
[2018-01-05] MEDS ORDERED: PHENOL/SODIUM PHENOLATE 100 SPRAY/177 ML BOTTLE PO PRN (20:04)
[2018-01-05] MEDS ORDERED: PHENOL/SODIUM PHENOLATE 100 SPRAY/177 ML BOTTLE ONE (23:52)
[2018-01-06] MEDS: IPRATROPIUM/ALBUTEROL 0.5-2.5 MG/3 ML AMPUL NEB SCH ×7 (00:09→23:40)
[2018-01-06] MEDS: LORAZEPAM INJ 2 MG/1 ML VIAL IV PRN ×5 (01:39→20:27)
[2018-01-06] MEDS: VANCOMYCIN HCL 1,500 MG in DEXTROSE 5%-WATER 250 ML IV SCH ×2 (01:39→15:40)
[2018-01-06] MEDS: FENTANYL CITRATE INJ/PF 100 MCG/2 ML AMPUL IV PRN ×5 (01:40→20:26)
[2018-01-06] MEDS: CEFEPIME 1 GM/D5W RTU 1 GM/50 ML RTUPB IV SCH ×2 (06:25→20:28)
[2018-01-06] MEDS: ONDANSETRON HCL INJ/PF 4 MG/2 ML SDV IV PRN ×2 (08:08→15:36)
[2018-01-06 14:44] LABS: VANCOMYCIN,TROUGH 11.2 ug/mL (5.0-20.0)
--- NOTE | 2018-01-06 17:48 | PDOC PROGRESS REPORT ---
Subjective Progress Note for:: 01/06/18 Subjective:: No adverse events overnight. Chief complaint is her chronic pain, but every, come in the room she is fast asleep. She has a cough but it has been nonproductive. No fevers. Reason For Visit: HEALTHCARE ASSOCIATED PNEUMONIA Physical Exam Vital Signs: Temp Pulse Resp BP Pulse Ox 98.3 F 88 20 110/76 96 01/06/18 15:54 01/06/18 16:22 01/06/18 16:22 01/06/18 15:54 01/06/18 16:22 Intake & Output 01/05/18 01/06/18 01/07/18 06:59 06:59 06:59 Intake Total 500 550 300 Balance 500 550 300 Weight 69 kg General appearance: PRESENT: disheveled, mild distress, other - Drowsy but arousable, basically just looks fatigued Respiratory exam: PRESENT: decreased breath sounds, unlabored. ABSENT: rales, rhonchi, tachypnea, wheezes Cardiovascular exam: PRESENT: RRR, +S1, +S2. ABSENT: diastolic murmur, systolic murmur Vascular exam: PRESENT: normal capillary refill GI/Abdominal exam: PRESENT: normal bowel sounds, soft. ABSENT: guarding, rebound, tenderness Extremities exam: ABSENT: pedal edema Musculoskeletal exam: PRESENT: normal inspection. ABSENT: deformity Neurological exam: PRESENT: awake, oriented to person, oriented to place, oriented to time Psychiatric exam: PRESENT: flat affect Results Laboratory Results: 01/05/18 07:50 01/05/18 07:50 01/06/18 08:06 Magnesium 1.8 Impressions: Chest X-Ray 01/05/18 01:34 IMPRESSION: 1. Right lower lobe consolidation compatible with pneumonia with possible small right parapneumonic effusion. Assessment & Plan - Diagnosis (1) HCAP (healthcare-associated pneumonia) Is this a current diagnosis for this admission?: Yes Plan: Currently on broad-spectrum antibiotics. Cultures are pending. Can be switched to oral antibiotics at the appropriate time. (2) Metastatic breast cancer Is this a current diagnosis for this admission?: Yes Plan: Main complication from this at this time is for pain, which is adequately controlled. She will follow-up with oncology as an outpatient. - Time Time Spent with patient: 15-24 minutes
[2018-01-07] MEDS: FENTANYL CITRATE INJ/PF 100 MCG/2 ML AMPUL IV PRN ×3 (00:36→06:38)
[2018-01-07] MEDS: LORAZEPAM INJ 2 MG/1 ML VIAL IV PRN ×2 (00:36→06:39)
[2018-01-07] MEDS: VANCOMYCIN HCL 1,500 MG in DEXTROSE 5%-WATER 250 ML IV SCH (03:22)
[2018-01-07] MEDS: IPRATROPIUM/ALBUTEROL 0.5-2.5 MG/3 ML AMPUL NEB SCH ×3 (04:09→12:50)
[2018-01-07] MEDS: CEFEPIME 1 GM/D5W RTU 1 GM/50 ML RTUPB IV SCH (06:37)
[2018-01-07] MEDS ORDERED: HYDROMORPHONE HCL INJ/PF 2 MG/ML AMPULE ONE (08:01)
--- NOTE | 2018-01-07 08:48 | PDOC CONSULTATION ---
Consultation Consult Date: 01/07/18 Attending physician:: TROY KELLEY Consult reason:: Stage IV breast cancer with known history of severe pain, malignant pleural effusion, here with pneumonia, poorly controlled pain History of Present Illness Admission Date/PCP: 01/05/18 04:01 ANDREA HOPPER MD Patient complains of: Pain, fever, shortness of breath History of Present Illness: EFFIE LOUIS is a 37 year old female well-known to our oncology clinic, with now nearly a one-year history of recurrent, stage IV breast cancer, she does have bone metastasis, brain metastasis, pleural metastasis with recurrent malignant pleural effusion. Initially had a Pleurx catheter but had severe pain with that so ultimately we removed it on the last admission. And on the last admission she was discharged to home hospice. She was on home hospice for approximately 4-6 weeks, initially we are planning on giving her IV pain medication through pain pump because she was poorly controlled with oral medications. But ultimately the patient was very afraid of the pain pump, and did not want to start that. So she continued on oral pain medications, unfortunately at home the pain got out of control and she was admitted to the hospital for IV pain control. At the time of admission she was having increased shortness of breath and imaging indicated pneumonia, given the fact that she was recently in a healthcare setting it was felt to be healthcare associated pneumonia and she was started on appropriate antibiotics for that. It was felt that her performance status was appropriate enough for a second opinion at [facility] to see if there is any other options available, and she was planned for that this past Saturday, but as she was admitted here she was not able to make that it. That appointment apparently was rescheduled per patient. Past Medical History Cardiac Medical History: Denies: Coronary Artery Disease, Myocardial Infarction, Hypertension Pulmonary Medical History: Reports: Asthma - TEENAGER, Pneumonia - recently d /c'd 05/10/17, Respiratory Failure Denies: Bronchitis, Chronic Obstructive Pulmonary Disease (COPD), Tuberculosis Neurological Medical History: Reports: Migraine, Seizures Endocrine Medical History: Denies: Diabetes Mellitus Type 1, Diabetes Mellitus Type 2 Malignancy Medical History: Reports: Brain Cancer, Breast Cancer - right mastectomy. With metastases to brain and lungs and pleural fluid, Lung Cancer, Other - breast CA with mets to lungs and brain GI Medical History: Reports: Gastroesophageal Reflux Disease Denies: Hiatal Hernia Musculoskeltal Medical History: Reports: Fibromyalgia Denies: Arthritis Skin Medical History: Denies: Eczema Psychiatric Medical History: Denies: Depression Hematology: Denies: Anemia, Sickle Cell Disease Past Surgical History Past Surgical History: Reports: Amputation, Section - x2, Cholecystectomy, Mastectomy - Right right mastectomy with axillary node dissection, Orthopedic Surgery, Tonsillectomy, Tubal Ligation, Vascular Surgery - Left chest wall port Social History Information Source: Patient Lives with: Spouse/Significant other Smoking Status: Former Smoker Frequency of Alcohol Use: None Hx Recreational Drug Use: No Drugs: None Hx Prescription Drug Abuse: No - Advance Directive Resuscitation Status: Do Not Resuscitate Family History Family History: Reviewed & Not Pertinent, DM, Other - Started to review with patient though Parental Family History Reviewed: Yes Children Family History Reviewed: Yes Sibling(s) Family History Reviewed.: Yes Medication/Allergy Home Medications: Docusate Sodium [Colace 100 mg Capsule] 100 mg PO BID 01/05/18 Linaclotide [Linzess 145 Mcg Capsule] 145 mcg PO DAILY 01/05/18 Oxycodone HCl 40 mg PO Q4HP PRN 01/05/18 Oxycodone HCl [Oxycontin] 40 mg PO Q12 01/05/18 Allergies/Adverse Reactions: Adhesive Bandage * [Adhesive Bandage] Allergy (Mild, Verified 01/05/18 01:25) Generalized rash adhesive tape [Adhesive Tape] Allergy (Mild, Verified 01/05/18 01:25) Generalized rash Review of Systems Constitutional: ABSENT: chills, fever(s), headache(s), weight gain, weight loss Eyes: ABSENT: visual disturbances Ears: ABSENT: hearing changes Cardiovascular: ABSENT: chest pain, dyspnea on exertion, edema, orthropnea, palpitations Respiratory: ABSENT: cough, hemoptysis Gastrointestinal: ABSENT: abdominal pain, constipation, diarrhea, hematemesis, hematochezia, nausea, vomiting Genitourinary: ABSENT: dysuria, hematuria Musculoskeletal: ABSENT: joint swelling Integumentary: ABSENT: rash, wounds Neurological: ABSENT: abnormal gait, abnormal speech, confusion, dizziness, focal weakness, syncope Psychiatric: ABSENT: anxiety, depression, homidical ideation, suicidal ideation Endocrine: ABSENT: cold intolerance, heat intolerance, polydipsia, polyuria Hematologic/Lymphatic: ABSENT: easy bleeding, easy bruising Physical Exam Vital Signs: Temp Pulse Resp BP Pulse Ox 98.7 F 86 18 113/61 98 01/07/18 00:00 01/07/18 07:38 01/07/18 07:38 01/07/18 00:00 01/07/18 07:38 Intake & Output 01/06/18 01/07/18 01/08/18 06:59 06:59 06:59 Intake Total 550 1162 Balance 550 1162 Weight 69 kg General appearance: PRESENT: no acute distress, well-developed, well-nourished Head exam: PRESENT: atraumatic, normocephalic Eye exam: PRESENT: conjunctiva pink, EOMI, PERRLA. ABSENT: scleral icterus Ear exam: PRESENT: normal external ear exam Mouth exam: PRESENT: moist, tongue midline Neck exam: ABSENT: carotid bruit, JVD, lymphadenopathy, thyromegaly Respiratory exam: PRESENT: clear to auscultation jose. ABSENT: rales, rhonchi, wheezes Cardiovascular exam: PRESENT: RRR. ABSENT: diastolic murmur, rubs, systolic murmur Pulses: PRESENT: normal dorsalis pedis pul Vascular exam: PRESENT: normal capillary refill GI/Abdominal exam: PRESENT: normal bowel sounds, soft. ABSENT: distended, guarding, mass, organolmegaly, rebound, tenderness Rectal exam: PRESENT: deferred Extremities exam: PRESENT: full ROM. ABSENT: calf tenderness, clubbing, pedal edema Neurological exam: PRESENT: alert, awake, oriented to person, oriented to place , oriented to time, oriented to situation, CN II-XII grossly intact. ABSENT: motor sensory deficit Psychiatric exam: PRESENT: appropriate affect, normal mood. ABSENT: homicidal ideation, suicidal ideation Skin exam: PRESENT: dry, intact, warm. ABSENT: cyanosis, rash Results Laboratory Results: 01/05/18 07:50 01/05/18 07:50 01/06/18 08:06 Magnesium 1.8 Impressions: Chest X-Ray 01/05/18 01:34 IMPRESSION: 1. Right lower lobe consolidation compatible with pneumonia with possible small right parapneumonic effusion. Assessment & Plan - Diagnosis (1) Pain, neoplasm-related Is this a current diagnosis for this admission?: Yes Plan: Neoplasm related pain, I have discontinued the IV fentanyl and change it over to IV Dilaudid, start her on a fentanyl patch. At home she was on OxyContin and oxycodone but that was poorly controlling her pain. Ultimately I do believe she will require pain pump. Over the next few days she may accept that. (2) Metastatic breast cancer Is this a current diagnosis for this admission?: Yes Plan: Metastatic breast cancer, I do not believe she is of good enough performance status to continue or consider other therapies, but I do not think she is ready to accept that. We need to see how she does over the next few days but if she remains bedridden, I believe she would accept a comfort care approach. (3) HCAP (healthcare-associated pneumonia) Is this a current diagnosis for this admission?: Yes Plan: Agree with current antibiotic approach, continue per hospitalist team - Time Time Spent: Greater than 70 Minutes - Inpatient Certification Based on my medical assessment, after consideration of the patient's comorbidities, presenting symptoms, or acuity I expect that the services needed warrant INPATIENT care.: Yes I certify that my determination is in accordance with my understanding of Medicare's requirements for reasonable and necessary INPATIENT services [42 CFR 412.3e].: Yes Medical Necessity: Need For Continuous Telemetry Monitoring, Need for Pain Control, Need for IV Antibiotics, Risk of Complication if Not Cared For in Hospital
[2018-01-07] MEDS: HYDROMORPHONE HCL INJ/PF 2 MG/ML AMPULE IV PRN ×2 (11:47→14:48)
[2018-01-07] MEDS: ONDANSETRON HCL INJ/PF 4 MG/2 ML SDV IV PRN (12:19)
[2018-01-07] MEDS ORDERED: FENTANYL 50 MCG/HR PATCH.TD72 TD SCH (13:00)
[2018-01-07 16:10] VITALS: BP 125/79
--- NOTE | 2018-01-07 16:26 | PDOC PROGRESS REPORT ---
Subjective Progress Note for:: 01/07/18 Subjective:: Ms. Sanabria was admitted for hospital-acquired pneumonia. No acute event overnight. She denies shortness of breath. No chest pain, fever or chills. Around noon, nursing staff called for a questionable seizure episode. Patient had shaking of the hands and feet. No incontinence or post episode confusion. On examination, patient said that she had this episodes before. She was started on Keppra by oncology in the past but apparently she refused to be on antiseizure medications. Around 2 PM, patient insisted in going AGAINST MEDICAL ADVICE. Risk of doing so was discussed with patient but she insisted in going home today. Reason For Visit: HEALTHCARE ASSOCIATED PNEUMONIA Physical Exam Vital Signs: Temp Pulse Resp BP Pulse Ox 97.3 F 97 16 125/79 100 01/07/18 15:22 01/07/18 15:22 01/07/18 15:22 01/07/18 15:22 01/07/18 15:22 Intake & Output 01/06/18 01/07/18 01/08/18 06:59 06:59 06:59 Intake Total 550 1162 240 Output Total 500 Balance 550 1162 -260 Weight 152 lb 1.903 oz General appearance: PRESENT: no acute distress Head exam: PRESENT: atraumatic Eye exam: PRESENT: conjunctiva pink, EOMI, PERRLA. ABSENT: scleral icterus Neck exam: ABSENT: carotid bruit, JVD, lymphadenopathy, thyromegaly Respiratory exam: PRESENT: other - Symmetrical chest expansion, no crackles or wheezing, slightly decreased breath sounds in the right base Pulses: PRESENT: normal dorsalis pedis pul Vascular exam: PRESENT: normal capillary refill GI/Abdominal exam: PRESENT: normal bowel sounds, soft. ABSENT: distended, guarding, mass, organolmegaly, rebound, tenderness Rectal exam: PRESENT: deferred Extremities exam: PRESENT: full ROM. ABSENT: calf tenderness, clubbing, pedal edema Neurological exam: PRESENT: awake, oriented to time, CN II-XII grossly intact Results Laboratory Results: 01/05/18 07:50 01/05/18 07:50 Impressions: Chest X-Ray 01/05/18 01:34 IMPRESSION: 1. Right lower lobe consolidation compatible with pneumonia with possible small right parapneumonic effusion. Assessment & Plan - Diagnosis (1) HCAP (healthcare-associated pneumonia) Is this a current diagnosis for this admission?: Yes Plan: Patient is currently on vancomycin and cefepime. She insisted in going home again today against medical advice today. Risk of doing so was discussed including worsening of her pneumonia and . Patient was slightly sleepy but she was awake during the conversation. Patient was coherent and oriented to time, place and person. She said that she needs to go home to see her children and that there is no way that we could convince her to stay otherwise. (2) Metastatic breast cancer Is this a current diagnosis for this admission?: Yes Plan: Patient has breast cancer with multiple metastasis. She was in home hospice before she came in and she says she is going back for home hospice. Discussed case with Dr. Leslie who will be prescribing her home pain medications.
--- NOTE | 2018-02-11 15:25 | PDOC DISCHARGE SUMMARY ---
General - Admit/Disc Date/PCP Admission Date/Primary Care Provider: 01/05/18 04:01 ANDREA HOPPER MD Discharge Date: 01/07/18 - Discharge Diagnosis (1) HCAP (healthcare-associated pneumonia) Is this a current diagnosis for this admission?: Yes (2) Metastatic breast cancer Is this a current diagnosis for this admission?: Yes - Additional Information Resuscitation Status: Do Not Resuscitate Prescriptions: Levofloxacin [Levaquin] 750 mg PO DAILY 6 Days tablet Home Medications: Docusate Sodium [Colace 100 mg Capsule] 100 mg PO BID 01/05/18 Linaclotide [Linzess 145 Mcg Capsule] 145 mcg PO DAILY 01/05/18 Oxycodone HCl 40 mg PO Q4HP PRN 01/05/18 Oxycodone HCl [Oxycontin] 40 mg PO Q12 01/05/18 Levofloxacin [Levaquin] 750 mg PO DAILY 6 Days tablet 01/07/18 Lorazepam [Ativan 1 mg Tablet] 1 mg PO Q4 PRN #15 tab 02/09/18 History of Present Illness History of Present Illness: EFFIE SANABRIA is a 37 year old female Hospital Course Hospital Course: Ms. Sanabria was admitted for hospital-acquired pneumonia. She was started on antibiotics. She has prior history of possible seizure and has previously refused to be on antiseizure medication. Oncology was also following patient. Patient expressed that she need to go back home to see her kids. Explained the risks of doing so including further morbidity and risk of as well but she insisted otherwise. Patient was coherent. She was well-oriented x 3. And she was able to verbalize the risks of going against medical advice. Physical Exam Vital Signs: Temp Pulse Resp BP Pulse Ox 97.3 F 97 16 125/79 100 01/07/18 15:22 01/07/18 15:22 01/07/18 15:22 01/07/18 15:22 01/07/18 15:22 General appearance: PRESENT: no acute distress, well-developed, well-nourished Head exam: PRESENT: atraumatic, normocephalic Eye exam: PRESENT: conjunctiva pink, EOMI, PERRLA. ABSENT: scleral icterus Neck exam: ABSENT: carotid bruit, JVD, lymphadenopathy, thyromegaly Results Laboratory Results: 01/05/18 07:50 01/05/18 07:50 Impressions: Chest X-Ray 01/05/18 01:34 IMPRESSION: 1. Right lower lobe consolidation compatible with pneumonia with possible small right parapneumonic effusion. Qualifiers - * PATIENT BEING DISCHARGED WITH ANY OF THE FOLLOWING DIAGNOSIS: No
== END 2018-01-07 16:14 | disposition left against medical advice (07) | DRG 194 ==
LOC: ER 01:15 → EH 04:01 → 5 05:40
PROVIDERS: ADMIT Internal Medicine; ATTEND Internal Medicine
PROC: 3E0F73Z Introduction of Anti-inflammatory into Respiratory Tract, Via Natural or Artificial Opening (ICD-10-PCS; principal; 2018-01-05)
DX: J18.9 Pneumonia, unspecified organism (principal); J91.0 Malignant pleural effusion; C79.51 Secondary malignant neoplasm of bone; C79.31 Secondary malignant neoplasm of brain; C78.2 Secondary malignant neoplasm of pleura; G89.3 Neoplasm related pain (acute) (chronic); Z66 Do not resuscitate; G43.909 Migraine, unspecified, not intractable, without status migrainosus; M79.7 Fibromyalgia; C50.911 Malignant neoplasm of unspecified site of right female breast; K21.9 Gastro-esophageal reflux disease without esophagitis; F41.9 Anxiety disorder, unspecified; K59.03 Drug induced constipation; T40.2X5A Adverse effect of other opioids, initial encounter; Z90.49 Acquired absence of other specified parts of digestive tract; Z90.11 Acquired absence of right breast and nipple; Z89.9 Acquired absence of limb, unspecified; Z87.891 Personal history of nicotine dependence; Z83.3 Family history of diabetes mellitus
CPT/HCPCS: 36415; 71045; 80048; 80202; 83735; 85027; 85610; 85730; 94640; 96361; 96374; 96375; 99285; J0692; J1170; J1200; J2060; J2405; J2543; J2765; J3010; J3370; J3490; J7040; J7060; J7620

== ENCOUNTER 2018-02-09 17:55 | Emergency (ER) | payer MEDICAID ==
[2018-02-09] MEDS ORDERED: FENTANYL CITRATE INJ/PF 100 MCG/2 ML AMPUL IV ONE (18:12)
[2018-02-09] MEDS ORDERED: ONDANSETRON HCL INJ/PF 4 MG/2 ML SDV IV ONE (18:12)
[2018-02-09] MEDS ORDERED: NORMAL SALINE 1000 ML 1,000 ML IV ONE (18:12)
--- NOTE | 2018-02-09 18:13 | ER Document Report ---
ED Medical Screen (RME) - General Chief Complaint: Breathing Difficulty Stated Complaint: SHORTNESS OF BREATH Time Seen by Provider: 02/09/18 18:13 TRAVEL OUTSIDE OF THE [place] IN LAST 30 DAYS: No - HPI Notes: 02/09/18 18:13 Patient currently on chemotherapy with metastatic breast cancer coming in shortness of breath painful nodules all over her body constipation - Related Data Allergies/Adverse Reactions: Adhesive Bandage * [Adhesive Bandage] Allergy (Mild, Verified 01/05/18 01:25) Generalized rash adhesive tape [Adhesive Tape] Allergy (Mild, Verified 01/05/18 01:25) Generalized rash Past Medical History - Past Medical History Cardiac Medical History: Denies: Hx Coronary Artery Disease, Hx Heart Attack, Hx Hypertension Pulmonary Medical History: Reports: Hx Asthma - TEENAGER, Hx Pneumonia - recently d/c'd 05/10/17, Hx Respiratory Failure Denies: Hx Bronchitis, Hx COPD, Hx Tuberculosis Neurological Medical History: Reports: Hx Migraine, Hx Seizures. Denies: Hx Cerebrovascular Accident Endocrine Medical History: Denies: Hx Diabetes Mellitus Type 1, Hx Diabetes Mellitus Type 2 Renal/ Medical History: Denies: Hx Peritoneal Dialysis Malignancy Medical History: Reports: Hx Brain Cancer, Hx Breast Cancer - right mastectomy. With metastases to brain and lungs and pleural fluid, Hx Lung Cancer GI Medical History: Reports: Hx Gastroesophageal Reflux Disease. Denies: Hx Hiatal Hernia Musculoskeltal Medical History: Denies Hx Arthritis, Reports Hx Fibromyalgia Skin Medical History: Denies Hx Eczema Psychiatric Medical History: Denies: Hx Depression Infectious Medical History: Past Surgical History: Reports: Hx Section - x2, Hx Cholecystectomy, Hx Mastectomy - Right right mastectomy with axillary node dissection, Hx Orthopedic Surgery, Hx Tonsillectomy, Hx Tubal Ligation, Hx Vascular Surgery - Left chest wall port - Immunizations Hx Diphtheria, Pertussis, Tetanus Vaccination: Yes History of Influenza Vaccine for 03/2017 - 08/2017 Season: No Influenza Administration Date for 03/2017 - 08/2017 Season: 03/13/17 Review of Systems - Review of Systems Constitutional: Other - Nausea vomiting constipation feeling unwell shortness of breath Physical Exam - Vital signs Vitals: Temp Pulse Resp BP Pulse Ox 98.2 F 108 H 21 H 101/79 100 02/09/18 17:59 02/09/18 17:59 02/09/18 17:59 02/09/18 17:59 02/09/18 17:59 - General General appearance: Appears well In distress: None - Respiratory Respiratory status: No respiratory distress Chest status: Nontender Breath sounds: Normal Chest palpation: Normal Course - Vital Signs Vital signs: Temp Pulse Resp BP Pulse Ox 98.2 F 108 H 21 H 101/79 100 02/09/18 17:59 02/09/18 17:59 02/09/18 17:59 02/09/18 17:59 02/09/18 17:59 Doctor's Discharge - Discharge Referrals: ANDREA HOPPER MD [Primary Care Provider] - Follow up as needed
--- NOTE | 2018-02-09 18:41 | ER Document Report ---
ED General - General Chief Complaint: Breathing Difficulty Stated Complaint: SHORTNESS OF BREATH Time Seen by Provider: 02/09/18 18:13 Notes: Patient is a 37-year-old female with a past medical history of metastatic breast cancer with no metastases to the lungs, brain and soft tissue who presents with complaints of constipation and multiple soft tissue nodules that have become increasingly painful over the last 2 weeks. The patient reports that her last bowel movement was over 1 week ago despite taking Linzess and stool softeners as prescribed by her oncologist. She states that she has become this constipated in the past and that she actually required hospitalization at that time. She has not spoken to her oncologist regarding today's concerns. The patient also complains of shortness of breath but states "it is always like this" and denies that this is the reason for her visit today. Contrary to the initial nursing note from the patient denies having a recorded fever at home either yesterday or today. Her main reason for visiting his inability to have a bowel movement. She notes an associated generalized abdominal bloating sensation. Nothing improves or worsens her symptoms. TRAVEL OUTSIDE OF THE [place] IN LAST 30 DAYS: No - Related Data Allergies/Adverse Reactions: Adhesive Bandage * [Adhesive Bandage] Allergy (Mild, Verified 01/05/18 01:25) Generalized rash adhesive tape [Adhesive Tape] Allergy (Mild, Verified 01/05/18 01:25) Generalized rash Past Medical History - General Information source: Patient - Social History Smoking Status: Never Smoker Frequency of alcohol use: None Drug Abuse: None Lives with: Spouse/Significant other Family History: Reviewed & Not Pertinent, DM, Other - Started to review with patient though - Past Medical History Cardiac Medical History: Denies: Hx Coronary Artery Disease, Hx Heart Attack, Hx Hypertension Pulmonary Medical History: Reports: Hx Asthma - TEENAGER, Hx Pneumonia - recently d/c'd 05/10/17, Hx Respiratory Failure Denies: Hx Bronchitis, Hx COPD, Hx Tuberculosis Neurological Medical History: Reports: Hx Migraine, Hx Seizures. Denies: Hx Cerebrovascular Accident Endocrine Medical History: Denies: Hx Diabetes Mellitus Type 1, Hx Diabetes Mellitus Type 2 Renal/ Medical History: Denies: Hx Peritoneal Dialysis Malignancy Medical History: Reports: Hx Brain Cancer, Hx Breast Cancer - right mastectomy. With metastases to brain and lungs and pleural fluid, Hx Lung Cancer GI Medical History: Reports: Hx Gastroesophageal Reflux Disease. Denies: Hx Hiatal Hernia Musculoskeletal Medical History: Denies Hx Arthritis, Reports Hx Fibromyalgia Skin Medical History: Denies Hx Eczema Psychiatric Medical History: Denies: Hx Depression Infectious Medical History: Past Surgical History: Reports: Hx Section - x2, Hx Cholecystectomy, Hx Mastectomy - Right right mastectomy with axillary node dissection, Hx Orthopedic Surgery, Hx Tonsillectomy, Hx Tubal Ligation, Hx Vascular Surgery - Left chest wall port - Immunizations Hx Diphtheria, Pertussis, Tetanus Vaccination: Yes Hx Pneumococcal Vaccination: 04/30/13 Review of Systems - Review of Systems Notes: Constitutional: Negative for fever. HENT: Negative for sore throat. Eyes: Negative for visual changes. Cardiovascular: Negative for chest pain. Respiratory: Positive for chronic shortness of breath Gastrointestinal: Positive for abdominal pain nausea and constipation Genitourinary: Negative for dysuria. Musculoskeletal: Negative for back pain. Skin: Negative for rash. Neurological: Negative for headaches, weakness or numbness. 10 point ROS negative except as marked above and in HPI. Physical Exam - Vital signs Vitals: Temp Pulse Resp BP Pulse Ox 98.2 F 108 H 21 H 101/79 100 02/09/18 17:59 02/09/18 17:59 02/09/18 17:59 02/09/18 17:59 02/09/18 17:59 Interpretation: Tachycardic Notes: PHYSICAL EXAMINATION: GENERAL: Appears chronically ill but in no acute distress HEAD: Atraumatic, normocephalic. EYES: Pupils equal round and reactive to light, extraocular movements intact, sclera anicteric, conjunctiva are normal. ENT: nares patent, oropharynx clear without exudates. Moderately dry mucous membranes. NECK: Normal range of motion, supple without lymphadenopathy LUNGS: Breath sounds clear to auscultation bilaterally and equal. No wheezes rales or rhonchi. HEART: Regular rate and rhythm without murmurs ABDOMEN: Soft, nontender, normoactive bowel sounds. No guarding, no rebound. No masses appreciated. EXTREMITIES: no pitting or edema. No cyanosis. NEUROLOGICAL: No focal neurological deficits. Moves all extremities spontaneously and on command. PSYCH: Moderately anxious SKIN: Warm, Dry, normal turgor, several firm, nonmobile nodules in multiple locations including the left flank, upper back and right low back Course - Re-evaluation Re-evalutation: 02/09/18 18:39 Presentation of a chronically ill-appearing 37-year-old patient with a very unfortunate history of metastatic breast cancer normally uses 7-8 L of nasal cannula at all times who presents with complaints of constipation. Contrary to the triage assessment the patient states that her shortness of breath is not any worse today than it normally is. She is here because she has severe constipation, has not had a bowel movement in over 1 week and is looking for relief. She attributes this to being on opiates but has been using Linzess as well as stool softeners without relief. She has had similar events in the past but is uncertain what is relieved them. On exam the patient appears uncomfortable but in no respiratory distress. She has no focal abdominal tenderness, rebound or guarding on exam. She received chemotherapy last today. Will obtain labs, abdominal x-ray, chest x-ray, provide oral lactulose, oral mag citrate, and reassess the patient. 02/09/18 21:20 Patient feels symptomatically much improved from time of presentation. Although she has not had a bowel movement she denies any ongoing abdominal discomfort. Labs unremarkable. Chest x-ray does not show any acute findings. KUB shows moderate colonic stool burden but no evidence of impaction or obstruction. I discussed this case with the oncologist medical secretary receptionist Dr. Reveles who agrees with management provided here in the emergency department. The patient will follow up in clinic on Saturday. I discussed at length with the patient that she needs to be taking MiraLAX 3 times daily. I will also provide Ativan at home for abdominal spasming and pain. At this time will discharge with return precautions and follow-up recommendations. Verbal discharge instructions given a the bedside and opportunity for questions given. Medication warnings reviewed. Patient is in agreement with this plan and has verbalized understanding of return precautions and the need for primary care follow-up in the next 24-72 hours. - Vital Signs Vital signs: Temp Pulse Resp BP Pulse Ox 98.2 F 108 H 14 118/89 H 100 02/09/18 17:59 02/09/18 17:59 02/09/18 21:01 02/09/18 21:00 02/09/18 21:00 - Laboratory Result Diagrams: 02/09/18 19:10 02/09/18 19:10 Laboratory results interpreted by me: 02/09/18 02/09/18 19:10 19:10 RBC 3.33 L Hgb 9.9 L Hct 29.5 L RDW 16.4 H BUN 6 L - Diagnostic Test Radiology reviewed: Image reviewed, Reports reviewed Radiology results interpreted by me: 02/09/18 21:21 Chest x-ray: No new infiltrate KUB: Moderate colonic stool burden Discharge - Discharge Clinical Impression: Metastatic breast cancer, Constipation due to opioid therapy Constipation Qualifiers: Constipation type: unspecified constipation type Qualified Code(s): K59.00 - Constipation, unspecified Condition: Stable Disposition: HOME, SELF-CARE Additional Instructions: Please take 1 capful of MiraLAX 3 times daily until you are having normal movements. Please also continue take the Linzess and stool softeners that you are normally prescribed. You have been prescribed Ativan to use as needed for abdominal cramping and spasming. Return if you develop persistent vomiting, worsening of your abdominal pain, develop a fever greater than 101F, or have any other symptoms that are worrisome to you. Prescriptions: Lorazepam [Ativan 1 mg Tablet] 1 mg PO Q4 PRN #15 tab PRN Reason: Referrals: ANDREA HOPPER MD [ACTIVE STAFF] - Follow up as needed MARTINEZ MORATAYA MD [ACTIVE STAFF] - 02/11/18
[2018-02-09] MEDS ORDERED: LACTULOSE SYRUP 20 GM/30 ML UDCUP PO ONE (18:42)
[2018-02-09] MEDS ORDERED: SENNOSIDES/DOCUSATE 8.6-50 MG 1 EACH TABLET PO ONE (18:44)
[2018-02-09] MEDS ORDERED: MAGNESIUM CITRATE 296 ML BOTTLE PO ONE (18:44)
--- NOTE | 2018-02-09 19:09 | EKG REPORT ---
SEVERITY:- BORDERLINE ECG - SINUS RHYTHM PROBABLE LEFT ATRIAL ABNORMALITY : Confirmed by: Lakhwinder George MD 09-Feb-2018 19:09:32
--- NOTE | 2018-02-09 19:19 | RADIOLOGY REPORT (SQ) ---
EXAM DESCRIPTION: KUB/ABDOMEN (SINGLE VIEW) COMPLETED DATE/TIME: 02/09/2018 6:51 pm REASON FOR STUDY: no bm COMPARISON: None. NUMBER OF VIEWS: One view. TECHNIQUE: Supine radiographic image of the abdomen acquired. LIMITATIONS: None. FINDINGS: BOWEL GAS PATTERN: Nonobstructive pattern with gas throughout the colon. Moderate distal colonic stool. CALCIFICATIONS: No suspicious calcifications. SOFT TISSUES: No gross mass or suggestion of organomegaly. HARDWARE: None in the abdomen. BONES: No acute fracture. No worrisome bone lesions. OTHER: No other significant finding. IMPRESSION: Moderate stool. TECHNICAL DOCUMENTATION: JOB ID: [id number] [employer]- All Rights Reserved Reading location - IP/workstation name: [email or web address]
--- NOTE | 2018-02-09 19:21 | RADIOLOGY REPORT (SQ) ---
EXAM DESCRIPTION: CHEST SINGLE VIEW COMPLETED DATE/TIME: 02/09/2018 6:51 pm REASON FOR STUDY: sob COMPARISON: 01/05/2018. FINDINGS: Single-view chest AP portable upright at approximately 1831 hours. Slight worsening in right basilar aeration compared to the prior. There is chronic basilar airspace disease with a small slightly progressive effusion. Left lung remains relatively clear. Left port remains in place. IMPRESSION: Slight worsening of right basilar airspace disease and small effusion. TECHNICAL DOCUMENTATION: JOB ID: [id number] Reading location - IP/workstation name: [email or web address]
[2018-02-09 19:29] LABS: VENOUS BLOOD BASE EXCESS 2.3 mmol/L; VENOUS BLOOD HCO3 28.3 mmol/L (20-32); VENOUS BLOOD PCO2 50.6 mmHg (35-63); VENOUS BLOOD PH 7.37 (7.30-7.42)
[2018-02-09 19:33] LABS: ABSOLUTE EOSINOPHILS # (AUTO) 0.1 10^3/uL (0.0-0.6); ABSOLUTE LYMPHOCYTES (AUTO) 0.9 10^3/uL (0.5-4.7); ABSOLUTE MONOCYTES (AUTO) 0.6 10^3/uL (0.1-1.4); BASOPHILS % (AUTO) 0.6 % (0-2); HEMATOCRIT 29.5 % (36.0-47.0); HEMOGLOBIN 9.9 g/dL (12.0-15.5); LYMPHOCYTES % (AUTO) 14.1 % (13-45); MEAN CORPUSCULAR HEMOGLOBIN 29.7 pg (27.0-33.4); MEAN CORPUSCULAR HGB CONC 33.5 g/dL (32.0-36.0); MEAN CORPUSCULAR VOLUME 89 fl (80-97); MONOCYTES % (AUTO) 9.2 % (3-13); PLATELET COUNT 393 10^3/uL (150-450); RED BLOOD COUNT 3.33 10^6/uL (3.72-5.28); RED CELL DISTRIBUTION WIDTH 16.4 % (11.5-14.0); SEGMENTED NEUTROPHILS % (AUTO) 75.1 % (42-78); TOTAL CELLS COUNTED % (AUTO) 100 %; WHITE BLOOD COUNT 6.7 10^3/uL (4.0-10.5)
[2018-02-09 19:43] LABS: ALANINE AMINOTRANSFERASE 21 U/L (9-52); ALBUMIN 3.6 g/dL (3.5-5.0); ALKALINE PHOSPHATASE 68 U/L (38-126); ANION GAP 10 (5-19); ASPARTATE AMINO TRANSFERASE 17 U/L (14-36); BILIRUBIN,DIRECT 0.3 mg/dL (0.0-0.4); BILIRUBIN,TOTAL 0.4 mg/dL (0.2-1.3); BLOOD UREA NITROGEN 6 mg/dL (7-20); CALCIUM 9.2 mg/dL (8.4-10.2); CARBON DIOXIDE 28 mmol/L (22-30); CHLORIDE 104 mmol/L (98-107); GLUCOSE 76 mg/dL (75-110); POTASSIUM 4.2 mmol/L (3.6-5.0); SODIUM 141.8 mmol/L (137-145); TOTAL PROTEIN 7.3 g/dL (6.3-8.2)
[2018-02-09] MEDS: HYDROMORPHONE HCL INJ/PF 2 MG/ML AMPULE IV PRN ×2 (20:05→22:50)
[2018-02-09] MEDS ORDERED: LORAZEPAM INJ 2 MG/1 ML VIAL IV ONE (21:02)
[2018-02-09] MEDS ORDERED: NORMAL SALINE 10 ML SDV (AFTER EACH USE) IV PRN (22:23)
[2018-02-10] MEDS: HYDROMORPHONE HCL INJ/PF 2 MG/ML AMPULE IV PRN (00:52)
[2018-02-10 01:54] VITALS: BP 130/57
[2018-02-10] MEDS ORDERED: NORMAL SALINE 10 ML SDV (SCHEDULED) IV SCH (10:00)
== END 2018-02-10 01:55 | disposition home or self-care (01) ==
LOC: ER 17:55
DX: K59.03 Drug induced constipation (principal); T40.2X5A Adverse effect of other opioids, initial encounter; C50.919 Malignant neoplasm of unspecified site of unspecified female breast; C78.00 Secondary malignant neoplasm of unspecified lung; C79.31 Secondary malignant neoplasm of brain; C79.89 Secondary malignant neoplasm of other specified sites; R06.02 Shortness of breath; R00.0 Tachycardia, unspecified; Z99.81 Dependence on supplemental oxygen; Z88.8 Allergy status to other drugs, medicaments and biological substances
CPT/HCPCS: 93005; 36591; 96376; 99285; 96361; 96374; 96375; 36415; 85025; 80053; 82803; 71045; 74018; 93010; J3490 ×2; J1170 ×2; J2060; J2405; J7030; J1642

== ENCOUNTER → 2018-03-13 | Outpatient (CLI) | payer MEDICAID ==
--- NOTE | 2018-03-13 15:31 | RADIOLOGY REPORT (SQ) ---
EXAM DESCRIPTION: CT ABD/PELVIS WITH IV ONLY COMPLETED DATE/TIME: 03/13/2018 3:15 pm REASON FOR STUDY: C50.411 MALIG NEOPLM OF UPPER-OUTER QUADRANT OF RIGHT FEMALE BREAST C50.411 MALIG NEOPLM OF UPPER-OUTER QUADRANT OF RIGHT FEMALE COMPARISON: CT abdomen pelvis 04/12/2017, 04/22/2017, 10/18/2017 CT chest 02/17/2018 TECHNIQUE: CT scan of the abdomen and pelvis performed using helical scanning technique with dynamic intravenous contrast injection. No oral contrast. Images reviewed with lung, soft tissue, and bone windows. Reconstructed coronal and sagittal MPR images reviewed. Delayed images for evaluation of the urinary system also acquired. All images stored on PACS. All CT scanners at this facility use dose modulation, iterative reconstruction, and/or weight based d osing when appropriate to reduce radiation dose to as low as reasonably achievable (ALARA). [facility]: Dose Right [facility]: CareDose [facility]: Dose Right [facility]: Teradose 4D [facility]: [employer] CONTRAST TYPE AND DOSE: contrast/concentration: Isovue 350.00 mg/ml; Total Contrast Delivered: 68.0 ml; Total Saline Delivered: 65.0 ml RENAL FUNCTION: Creatinine 0.63 RADIATION DOSE: CT Rad equipment meets quality standard of care and radiation dose reduction techniq ues were employed. CTDIvol: 3.1 - 3.6 mGy. DLP: 324 mGy-cm.. LIMITATIONS: None. FINDINGS: LOWER CHEST: Right-sided pleural thickening with small subpulmonic loculated pleural effus ion, similar compared to CT chest 02/17/2018. Metastatic lung nodules at both lung bases are stable. Old right mastectomy with saline breast implant. LIVER: Normal size. No masses. No dilated ducts. SPLEEN: Normal size. No focal lesions. PANCREAS: No masses. No significant calcifications. No adjacent inflammation or peripancreatic fluid collections. Pancreatic duct not dilated. GALLBLADDER: Surgically absent ADRENAL GLANDS: No significant masses or asymmetry. RIGHT KIDNEY AND URETER: No solid masses. No significant calcifications. No hydronephrosis or hyd roureter. LEFT KIDNEY AND URETER: No solid masses. 2 mm left lower pole intrarenal nonobstructive stone. No hydronephrosis or hydroureter. AORTA AND VESSELS: No aneurysm. No dissection. Renal arteries, SMA, celiac without stenosis. RETROPERITONEUM: No retroperitoneal adenopathy, hemorrhage or masses. BOWEL AND PERITONEAL CAVITY: No masses or inflammatory changes. No free fluid or peritoneal masses. APPENDIX: Normal. PELVIS: No mass. No free fluid. Normal bladder. Normal size uterus and ovaries ABDOMINAL WALL: No masses. No hernias. BONES: No significant or acute findings. OTHER: No other significant finding. IMPRESSION: No CT evidence of metastatic disease to the abdomen or pelvis. Post cholecystectomy. 2 mm left lower pole intrarenal nonobstructive stone. TECHNICAL DOCUMENTATION: JOB ID: [id number] Quality ID # [id number]: Final reports with documentation of one or more dose reduction techniques (e.g., Au tomated exposure control, adjustment of the mA and/or kV according to patient size, use of iterative reconstruction technique) 2010 [employer]- All Rights Reserved Reading location - IP/workstation name: [email or web address]
== END ==
LOC: RAD 16:48
PROVIDERS: ATTEND Internal Medicine
DX: C50.411 Malignant neoplasm of upper-outer quadrant of right female breast (principal)
CPT/HCPCS: 74177

== ENCOUNTER 2018-03-17 15:44 | Emergency (ER) | payer MEDICAID ==
[2018-03-17] MEDS ORDERED: HYDROMORPHONE HCL INJ/PF 2 MG/ML AMPULE IV ONE ×3 (16:10→20:33)
[2018-03-17] MEDS ORDERED: ONDANSETRON HCL INJ/PF 4 MG/2 ML SDV IV ONE (16:10)
[2018-03-17] MEDS ORDERED: IPRATROPIUM/ALBUTEROL 0.5-2.5 MG/3 ML AMPUL NEB ONE (16:10)
--- NOTE | 2018-03-17 16:10 | ER Document Report ---
ED General - General Chief Complaint: Respiratory Distress Stated Complaint: DIFFICULTY BREATHING Time Seen by Provider: 03/17/18 15:59 Notes: Patient is a 37-year-old female with metastatic breast carcinoma that presents to the emergency department for chief complaint of shortness of breath and pleuritic right-sided chest pain. Patient was over an outpatient radiology, to have a CT scan performed for follow-up, while she was there felt short of breath and had right-sided chest pain so she was brought to the emergency department. She has a known right-sided pleural effusion that was being followed up by oncology. She has pain at baseline and typically takes Percocet to help alleviate some of her pain. She apparently has metastases to her lungs , her brain, and stomach. She currently rates her pain as a 9 out of 10, describes as a sharp pain, worse with a deep breath, and she is having difficulty catching a good breath because of it. She states she does have oxygen at home and has been using that at night, she also has albuterol inhalers and has been doing that twice daily as well. She states that this pain seems to be worse than has in the past, denies history of DVT or PE, denies any leg swelling or calf tenderness or pain. Past Medical History: Metastatic breast carcinoma Past Surgical History: Right mastectomy, Mediport placement Social History: Denies tobacco, alcohol or drug use. Family History: Reviewed and noncontributory for presenting illness Allergies: Reviewed, see documented allergy list. REVIEW OF SYSTEMS: Unless otherwise stated in this report the patient's positive and negative responses for review of systems for constitutional, eyes, ENT, cardiovascular, respiratory, gastrointestinal, neurological, genitourinary, musculoskeletal, and integumentary systems and related systems to the presenting problem are either as stated in the HPI or were not pertinent or were negative for the symptoms and/or complaints related to the presenting medical problem. PHYSICAL EXAMINATION: Vital signs reviewed, nursing noted reviewed. GENERAL: Patient appears anxious, but appropriate, no acute respiratory distress HEAD: Atraumatic, normocephalic. EYES: Eyes appear normal, extraocular movements intact, sclera anicteric, conjunctiva are normal. ENT: nares patent, oropharynx clear without exudates. Moist mucous membranes. NECK: Normal range of motion, supple without lymphadenopathy LUNGS: Wheezing noted throughout all lung soriano, there is rib tenderness on the right side, that is reproducible for the patient's pain, no respiratory distress. HEART: Heart rate borderline tachycardic, regular rhythm, no audible murmurs ABDOMEN: Soft, nontender, normoactive bowel sounds. No rebound, guarding, or rigidity. No masses appreciated. EXTREMITIES: Nontender, good range of motion, no pitting or edema. NEUROLOGICAL: No focal neurological deficits. Moves all extremities spontaneously Motor and sensory grossly intact on exam. PSYCH: Patient appears very anxious, but answers questions appropriately SKIN: Warm, Dry, normal turgor, no rashes or lesions noted on exposed skin, she has noted however to have a few firm nodules that are subcutaneous, 1 over the left posterior iliac wing, and another over the right medial trapezius, these are most consistent with subcutaneous calcium deposits, related to her cancer TRAVEL OUTSIDE OF THE [place] IN LAST 30 DAYS: No - Related Data Allergies/Adverse Reactions: Adhesive Bandage * [Adhesive Bandage] Allergy (Mild, Verified 01/05/18 01:25) Generalized rash adhesive tape [Adhesive Tape] Allergy (Mild, Verified 01/05/18 01:25) Generalized rash Past Medical History - Social History Smoking Status: Never Smoker Family History: Reviewed & Not Pertinent, DM, Other - Started to review with patient though - Past Medical History Cardiac Medical History: Denies: Hx Coronary Artery Disease, Hx Heart Attack, Hx Hypertension Pulmonary Medical History: Reports: Hx Asthma - TEENAGER, Hx Pneumonia - recently d/c'd 05/10/17, Hx Respiratory Failure Denies: Hx Bronchitis, Hx COPD, Hx Tuberculosis Neurological Medical History: Reports: Hx Migraine, Hx Seizures. Denies: Hx Cerebrovascular Accident Endocrine Medical History: Denies: Hx Diabetes Mellitus Type 1, Hx Diabetes Mellitus Type 2 Renal/ Medical History: Denies: Hx Peritoneal Dialysis Malignancy Medical History: Reports: Hx Brain Cancer, Hx Breast Cancer - right mastectomy. With metastases to brain and lungs and pleural fluid, Hx Lung Cancer GI Medical History: Reports: Hx Gastroesophageal Reflux Disease. Denies: Hx Hiatal Hernia Musculoskeletal Medical History: Denies Hx Arthritis, Reports Hx Fibromyalgia Skin Medical History: Denies Hx Eczema Psychiatric Medical History: Denies: Hx Depression Infectious Medical History: Past Surgical History: Reports: Hx Breast Surgery - R mastectomy/lumpectomy, Hx Section - x2, Hx Cholecystectomy, Hx Mastectomy - Right right mastectomy with axillary node dissection, Hx Orthopedic Surgery, Hx Tonsillectomy, Hx Tubal Ligation, Hx Vascular Surgery - Left chest wall port - Immunizations Hx Diphtheria, Pertussis, Tetanus Vaccination: Yes Hx Pneumococcal Vaccination: 04/30/13 Physical Exam - Vital signs Vitals: Resp Pulse Ox 28 H 98 03/17/18 16:06 03/17/18 16:06 Course - Re-evaluation Re-evalutation: Patient seen and examined vital signs reviewed. Laboratory data and imaging were ordered as appropriate for the patient's presenting symptoms and complaint, with consideration of any critical or life threatening conditions that may be associated with their obtained history and exam as noted above. CT Tiffanie Cardozo of the chest ordered, to evaluate for possible pulmonary embolism the patient with metastatic breast carcinoma Patient was treated with IV Dilaudid for her pain, Zofran, to prevent nausea Results were reviewed when available and demonstrated negative CTA of the chest , noted was a right-sided pleural effusion, appeared unchanged from prior, likely the cause of the patient's pain, she does have pleural thickening in this area as well, and is located where the patient is complaining of pain and has reproducible tenderness. There is some scattered infiltrate noted on my review, and we will treat the patient for possible early developing pneumonia since she has had a productive cough. I discussed this with the on-call oncologist, Dr. Reveles, who agreed with this plan of care as long as pain could be controlled. The patient was re-evaluated and was not hypoxic on room air, still complaining of some pains therefore she was given an additional 1 mg of IV Dilaudid, also IV Toradol, and Lidoderm patch. Patient will be given a dose of IV Rocephin, and oral azithromycin. Evaluation was most consistent with pleuritic chest pain, community-acquired pneumonia, advised the patient to follow-up with her oncologist, and call for an appointment tomorrow. Patient did voice concern for possible kidney stone, UA was ordered and negative for hematuria, making this much less likely. She was advised as noted above and discharged to home, with prescriptions for Ceftin ear 300 mg twice daily, azithromycin 250 mg for an additional 4 days oxycodone 10 mg to take as needed for pain, Ativan 1 mg every 6 hours as needed for anxiety, and Lidoderm patches I discussed with this patient that she should seek palliative care versus hospice, she stated that she was on hospice in the past but had this revoked, and advised that this should be readdressed given the advanced degree of her cancer. Results were discussed with the patient at this point, after careful consideration I feel that that patient can be discharged from the emergency department, the patient was educated treatments and reasons to return to the emergency department based on their presumed diagnosis as noted above, they were advised to followup with a primary care physician in 2-3 days. Patient was agreeable to plan of care. *Note is created using voice recognition software and may contain spelling, syntax or grammatical errors. Laboratory 03/17/18 03/17/18 03/17/18 15:45 15:45 15:45 WBC 5.6 RBC 3.83 Hgb 11.4 L Hct 34.2 L MCV 89 MCH 29.7 MCHC 33.2 RDW 17.2 H Plt Count 352 Seg Neutrophils % 64.2 Lymphocytes % 19.0 Monocytes % 14.0 H Eosinophils % 1.7 Basophils % 1.1 Absolute Neutrophils 3.6 Absolute Lymphocytes 1.1 Absolute Monocytes 0.8 Absolute Eosinophils 0.1 Absolute Basophils 0.1 PT 14.3 INR 1.06 APTT 28.5 Sodium 140.3 Potassium 4.0 Chloride 106 Carbon Dioxide 26 Anion Gap 8 BUN 9 Creatinine 0.88 Est GFR ( Amer) > 60 Est GFR (Non-Af Amer) > 60 Glucose 90 Calcium 9.5 Total Bilirubin 0.4 Direct Bilirubin 0.4 Neonat Total Bilirubin Not Reportable Neonat Direct Bilirubin Not Reportable Neonat Indirect Bili Not Reportable AST 16 ALT 13 Alkaline Phosphatase 78 Troponin I NT-Pro-B Natriuret Pep Total Protein 7.5 Albumin 3.9 03/17/18 15:45 WBC RBC Hgb Hct MCV MCH MCHC RDW Plt Count Seg Neutrophils % Lymphocytes % Monocytes % Eosinophils % Basophils % Absolute Neutrophils Absolute Lymphocytes Absolute Monocytes Absolute Eosinophils Absolute Basophils PT INR APTT Sodium Potassium Chloride Carbon Dioxide Anion Gap BUN Creatinine Est GFR ( Amer) Est GFR (Non-Af Amer) Glucose Calcium Total Bilirubin Direct Bilirubin Neonat Total Bilirubin Neonat Direct Bilirubin Neonat Indirect Bili AST ALT Alkaline Phosphatase Troponin I < 0.012 NT-Pro-B Natriuret Pep 39 Total Protein Albumin Chest/Abdomen CTA 03/17/18 16:06 IMPRESSION: No acute pulmonary emboli. Stable appearance of the chest compared to CT exam 02/17/2018 - Vital Signs Vital signs: Temp Pulse Resp BP Pulse Ox 98.5 F 13 121/71 100 03/17/18 19:23 03/17/18 20:07 03/17/18 20:07 03/17/18 20:07 - Laboratory Result Diagrams: 03/17/18 15:45 03/17/18 15:45 Laboratory results interpreted by me: 03/17/18 15:45 Hgb 11.4 L Hct 34.2 L RDW 17.2 H Monocytes % 14.0 H Discharge - Discharge Clinical Impression: Pleurisy with effusion Community acquired pneumonia Qualifiers: Laterality: right Lung location: unspecified part of lung Qualified Code(s): J18.9 - Pneumonia, unspecified organism Condition: Stable Disposition: HOME, SELF-CARE Instructions: Pleurisy ([facility]), Pneumonia ([facility]) Additional Instructions: Please return to the emergency department if you have any worsening, or concern of your symptoms. Please return to the emergency department if you develop chest pain, difficulty breathing, severe abdominal pain, or ongoing vomiting. Please follow-up with your primary care physician in 2-3 days and any other recommended physicians. If prescribed, take all medications as directed. If you have any questions or concerns do not hesitate to return the emergency department for evaluation. Take medications as directed, please start the antibiotics, starting tomorrow, please follow-up with your oncologist tomorrow, call for appointment. If your symptoms worsen, do not hesitate to return to the emergency department. Prescriptions: Azithromycin 250 mg PO DAILY 4 Days #4 tablet Cefdinir 300 mg PO Q12 #14 capsule Lidocaine [Lidoderm 5% (700 mg) Transdermal Patch] 1 patch TP DAILY #7 adh..patch Lorazepam [Ativan 1 mg Tablet] 1 mg PO Q6H PRN #15 tab PRN Reason: Oxycodone HCl [Oxycodone HCl 10 MG Tablet] 1 tab PO Q6H PRN #15 tablet PRN Reason: PAIN Referrals: MARTINEZ MORATAYA MD [Primary Care Provider] - Follow up tomorrow
[2018-03-17 16:11] LABS: ABSOLUTE BASOPHILS # (AUTO) 0.1 10^3/uL (0.0-0.2); ABSOLUTE EOSINOPHILS # (AUTO) 0.1 10^3/uL (0.0-0.6); ABSOLUTE LYMPHOCYTES (AUTO) 1.1 10^3/uL (0.5-4.7); ABSOLUTE MONOCYTES (AUTO) 0.8 10^3/uL (0.1-1.4); ABSOLUTE NEUT (AUTO) 3.6 10^3/uL (1.7-8.2); BASOPHILS % (AUTO) 1.1 % (0-2); EOSINOPHILS % (AUTO) 1.7 % (0-6); HEMATOCRIT 34.2 % (36.0-47.0); HEMOGLOBIN 11.4 g/dL (12.0-15.5); MEAN CORPUSCULAR HEMOGLOBIN 29.7 pg (27.0-33.4); MEAN CORPUSCULAR HGB CONC 33.2 g/dL (32.0-36.0); MEAN CORPUSCULAR VOLUME 89 fl (80-97); PLATELET COUNT 352 10^3/uL (150-450); RED BLOOD COUNT 3.83 10^6/uL (3.72-5.28); RED CELL DISTRIBUTION WIDTH 17.2 % (11.5-14.0); SEGMENTED NEUTROPHILS % (AUTO) 64.2 % (42-78); TOTAL CELLS COUNTED % (AUTO) 100 %; WHITE BLOOD COUNT 5.6 10^3/uL (4.0-10.5)
[2018-03-17 16:18] LABS: INTERNATIONAL RATION (INR) 1.06; PROTHROMBIN TIME 14.3 SEC (11.4-15.4)
[2018-03-17 16:19] LABS: PARTIAL THROMBOPLASTIN TIME 28.5 SEC (23.5-35.8)
[2018-03-17 16:33] LABS: ALANINE AMINOTRANSFERASE 13 U/L (9-52); ALBUMIN 3.9 g/dL (3.5-5.0); ALKALINE PHOSPHATASE 78 U/L (38-126); ANION GAP 8 (5-19); ASPARTATE AMINO TRANSFERASE 16 U/L (14-36); BILIRUBIN,DIRECT 0.4 mg/dL (0.0-0.4); BILIRUBIN,TOTAL 0.4 mg/dL (0.2-1.3); BLOOD UREA NITROGEN 9 mg/dL (7-20); CALCIUM 9.5 mg/dL (8.4-10.2); CARBON DIOXIDE 26 mmol/L (22-30); CHLORIDE 106 mmol/L (98-107); GLUCOSE 90 mg/dL (75-110); SODIUM 140.3 mmol/L (137-145); TOTAL PROTEIN 7.5 g/dL (6.3-8.2)
[2018-03-17 16:40] LABS: NT PRO BNP 39 pg/mL (<125)
[2018-03-17 16:44] LABS: TROPONIN I < 0.012 ng/mL
--- NOTE | 2018-03-17 17:17 | RADIOLOGY REPORT (SQ) ---
EXAM DESCRIPTION: CTA CHEST COMPLETED DATE/TIME: 03/17/2018 4:57 pm REASON FOR STUDY: chest pain, sob, hx breast cancer COMPARISON: CT angio chest 09/17/2017, 10/18/2017, 11/11/2017, 11/20/2017, 02/17/2018 TECHNIQUE: CT scan of the chest performed using helical scanning technique with dynamic intravenous contrast injection. Images reviewed with lung, soft tissue and bone windows. Reconstructed coronal and sagittal MPR images reviewed. Additional 3 dimensional post-processing performed to develop Maximal Intensity Projection images (NE P). All images stored on PACS. All CT scanners at this facility use dose modulation, iterative reconstruction, and/or weight based d osing when appropriate to reduce radiation dose to as low as reasonably achievable (ALARA). [facility]: Dose Right [facility]: CareDose [facility]: Dose Right [facility]: Teradose 4D [facility]: Synovex CONTRAST TYPE AND DOSE: contrast/concentration: Isovue 350.00 mg/ml; Total Contrast Delivered: 64.0 ml; Total Saline Delivered: 85.0 ml Contrast bolus optimized for the pulmonary arteries and aorta. RENAL FUNCTION: None required. The patient is less than 50 years old. RADIATION DOSE: CT Rad equipment meets quality standard of care and radiation dose reduction techniq ues were employed. CTDIvol: 3.3 - 19.8 mGy. DLP: 567 mGy-cm. . LIMITATIONS: None. FINDINGS: LUNGS AND PLEURA: Again, patient has too numerous to count tiny lung parenchymal metastati c lesions similar compared to 02/17/2018 CT chest. No acute infiltrates. There is stable right pleural thickening with stable loculated right lower pleural space fluid along the inferior right hemithorax, unchanged from 02/17/2018. No pneumothorax Airways are patent AORTA AND GREAT VESSELS: No aneurysm. No thoracic aortic dissection HEART: No pericardial effusion. No significant coronary artery calcifications. PULMONARY ARTERIES: No emboli visualized in the main pulmonary arteries or the segmental branches. HILAR AND MEDIASTINAL STRUCTURES: No identified masses or abnormal nodes. HARDWARE: None in the chest. UPPER ABDOMEN: No significant findings. Limited exam. THYROID AND OTHER SOFT TISSUES: Old right mastectomy with right breast implant BONES: No acute or significant finding. 3D MIPS: Confirm above findings. OTHER: No other significant finding. IMPRESSION: No acute pulmonary emboli. Stable appearance of the chest compared to CT exam 02/17/2018 COMMENT: Quality ID # [id number]: Final reports with documentation of one or more dose reduction techniques (e.g., Automated exposure control, adjustment of the mA and/or kV according to patient size, use of iterative reconstruction technique) TECHNICAL DOCUMENTATION: JOB ID: [id number] [employer]- All Rights Reserved Reading location - IP/workstation name: [email or web address] [id number]
[2018-03-17] MEDS ORDERED: CEFTRIAXONE INJ 1000 MG VIAL IV ONE (17:52)
[2018-03-17] MEDS ORDERED: AZITHROMYCIN 250 MG TABLET PO ONE (17:52)
[2018-03-17] MEDS ORDERED: LORAZEPAM 1 MG TABLET PO ONE (17:52)
[2018-03-17] MEDS ORDERED: KETOROLAC TROMETHAMINE INJ/PF 30 MG/1 ML SDV IV ONE (18:00)
[2018-03-17] MEDS ORDERED: LIDOCAINE 5% (700 MG) TRANSDERMAL ADH..PATCH TP ONE (18:00)
--- NOTE | 2018-03-17 18:07 | EKG REPORT ---
SEVERITY:- OTHERWISE NORMAL ECG - SINUS RHYTHM BORDERLINE LEFT AXIS DEVIATION : Confirmed by: Robina Chavez MD 17-Mar-2018 18:07:14
[2018-03-17] MEDS ORDERED: OXYCODONE HCL IR 5 MG TABLET PO ONE (19:18)
[2018-03-17 19:30] LABS: APPEARANCE,URINE CLEAR; BILIRUBIN,URINE NEGATIVE (NEGATIVE); COLOR,URINE YELLOW; GLUCOSE, URINE NEGATIVE (NEGATIVE); KETONES,URINE NEGATIVE (NEGATIVE); LEUKOCYTE ESTERASE,URINE NEGATIVE (NEGATIVE); NITRITE,URINE NEGATIVE (NEGATIVE); PROTEIN,URINE NEGATIVE (NEGATIVE); UROBILINOGEN,URINE NEGATIVE mg/dL (<2.0)
[2018-03-17 19:39] LABS: URINE SPECIFIC GRAVITY 1.052
[2018-03-17 21:37] VITALS: BP 119/90
== END 2018-03-17 21:30 | disposition home or self-care (01) ==
LOC: ER 15:44
DX: J18.9 Pneumonia, unspecified organism (principal); C50.919 Malignant neoplasm of unspecified site of unspecified female breast; C78.00 Secondary malignant neoplasm of unspecified lung; C78.89 Secondary malignant neoplasm of other digestive organs; C79.31 Secondary malignant neoplasm of brain; J45.909 Unspecified asthma, uncomplicated; J90 Pleural effusion, not elsewhere classified; R06.02 Shortness of breath; R22.2 Localized swelling, mass and lump, trunk; Z79.891 Long term (current) use of opiate analgesic; Z79.899 Other long term (current) drug therapy; Z88.8 Allergy status to other drugs, medicaments and biological substances
CPT/HCPCS: 93005; 96376; 94640; 99285; 96375; 96365; 36415; 85025; 85610; 85730; 80053; 81001; 84484; 83880; 71275; 93010; Q0144; J1885; J1170; J3490 ×2; J0696; J2405; J7620

== ENCOUNTER → 2018-03-17 | Outpatient (CLI) | payer MEDICAID ==
--- NOTE | 2018-03-17 15:55 | RADIOLOGY REPORT (SQ) ---
EXAM DESCRIPTION: CHEST SINGLE VIEW COMPLETED DATE/TIME: 03/17/2018 3:47 pm REASON FOR STUDY: R06.02 SHORTNESS OF BREATH COMPARISON: Chest films 02/09/2018, 11/15/2017 CT angio chest 02/17/2018 EXAM PARAMETERS: NUMBER OF VIEWS: One view. TECHNIQUE: Single frontal radiographic view of the chest acquired. RADIATION DOSE: NA LIMITATIONS: None. FINDINGS: LUNGS AND PLEURA: Stable right pleural thickening and right lower lobe alveolar and inters titial opacities compared to previous films. No acute left lung infiltrates. Small lung metastatic nodules are evident bilaterally. MEDIASTINUM AND HILAR STRUCTURES: No masses. Contour normal. HEART AND VASCULAR STRUCTURES: Heart normal in size. Normal vasculature. BONES: No acute findings. HARDWARE: Left permanent central line tip superior vena cava. Right axillary surgical clips. Right breast implant OTHER: No other significant finding. IMPRESSION: Chronic right pleural thickening with chronic alveolar and interstitial opacity right lo wer lobe. TECHNICAL DOCUMENTATION: JOB ID: [id number] [employer]- All Rights Reserved Reading location - IP/workstation name: [id number]
== END ==
LOC: RAD 15:12
PROVIDERS: ATTEND Internal Medicine
DX: R06.02 Shortness of breath (principal); J92.9 Pleural plaque without asbestos
CPT/HCPCS: 71045

== ENCOUNTER 2018-03-25 11:58 | Day surgery (SDC) | payer MEDICAID ==
[2018-03-25] MEDS ORDERED: BUPIVACAINE HCL 0.5 % INJ/PF 30 ML SDV ONE (12:45)
[2018-03-25] MEDS ORDERED: LIDOCAINE 1%/EPINEPHRINE INJ 20 ML VIAL ONE (12:46)
[2018-03-25] MEDS ORDERED: CEFAZOLIN 1 GM/D5W RTU 1 GM/50 ML RTUPB IV ONE (12:49)
[2018-03-25 12:56] LABS: HEMATOCRIT 34.6 % (36.0-47.0); HEMOGLOBIN 11.7 g/dL (12.0-15.5); MEAN CORPUSCULAR HEMOGLOBIN 29.7 pg (27.0-33.4); MEAN CORPUSCULAR HGB CONC 33.7 g/dL (32.0-36.0); MEAN CORPUSCULAR VOLUME 88 fl (80-97); PLATELET COUNT 351 10^3/uL (150-450); RED BLOOD COUNT 3.93 10^6/uL (3.72-5.28); RED CELL DISTRIBUTION WIDTH 17.8 % (11.5-14.0); WHITE BLOOD COUNT 5.8 10^3/uL (4.0-10.5)
[2018-03-25] MEDS ORDERED: ALBUTEROL SULFATE 0.083% NEB 2.5 MG/3 ML AMPUL NEB ONE (13:21)
[2018-03-25 13:23] LABS: ANION GAP 6 (5-19); BLOOD UREA NITROGEN 10 mg/dL (7-20); CALCIUM 9.4 mg/dL (8.4-10.2); CARBON DIOXIDE 31 mmol/L (22-30); CHLORIDE 104 mmol/L (98-107); GLUCOSE 79 mg/dL (75-110); POTASSIUM 4.1 mmol/L (3.6-5.0)
[2018-03-25] MEDS ORDERED: MIDAZOLAM 2 MG/2 ML INJ ONE (13:41)
[2018-03-25] MEDS ORDERED: PROPOFOL INJ 200 MG/20 ML VIAL IV ONE (13:41)
[2018-03-25] MEDS ORDERED: FENTANYL CITRATE INJ/PF 100 MCG/2 ML AMPUL ONE (13:41)
[2018-03-25] MEDS ORDERED: LIDOCAINE 1% INJ-PF (10 MG/ML) 30 ML SDV ONE (14:09)
[2018-03-25] MEDS ORDERED: DIPHENHYDRAMINE HCL 50 MG/ML VIAL IV PRN (14:10)
[2018-03-25] MEDS ORDERED: FENTANYL CITRATE INJ/PF 100 MCG/2 ML AMPUL IV PRN ×3 (14:10)
[2018-03-25] MEDS ORDERED: OXYCODONE-ACETAMINOPHEN 5-325 MG TABLET PO PRN ×3 (14:10→14:37)
[2018-03-25] MEDS ORDERED: MORPHINE SULFATE 10 MG/ML INJ IV PRN (14:10)
[2018-03-25] MEDS ORDERED: PROMETHAZINE HCL INJ 25 MG/1 ML VIAL IV PRN ×2 (14:10)
[2018-03-25] MEDS ORDERED: MEPERIDINE HCL/PF INJ 25 MG/1 ML DISP.SYRIN IV PRN (14:10)
--- NOTE | 2018-03-25 14:37 | Operative Report ---
Operative Report DATE OF SURGERY: 03/25/18 PREOPERATIVE DIAGNOSIS: Left facial abscess POSTOPERATIVE DIAGNOSIS: Infected 2 cm sebaceous cyst of the left face OPERATION: Excisional debridement of infected sebaceous cyst SURGEON: BARBER ROTH ANESTHESIA: LMAC TISSUE REMOVED OR ALTERED: Pus sent for Gram stain and culture COMPLICATIONS: None ESTIMATED BLOOD LOSS: Minimal INTRAOPERATIVE FINDINGS: Cottage cheeselike material with pus within 2 cm cystic mass with surrounding inflammatory changes at the patient's left cheek PROCEDURE: Informed consent was obtained. Patient was brought to the operating room placed on the operating table in supine position. The procedure was done under LMAC. Patient's left face was prepped and draped in usual sterile fashion. At her left cheek near the zygomatic arch there was a fluctuant mass measuring about 2 cm in size with about 4 x 4 cm region of swelling and erythema surrounding it. Local anesthetic was administered. Incision was made overlying the region of fluctuance entering a cystic cavity filled with pus and cottage cheeselike material. This cavity was evacuated and the lining was attempted to be excised using combination of sharp dissection and curetting, avoiding going too deep in the surrounding of inflamed tissue. Hemostasis at the skin edges were obtained with electrocautery. The wound was then irrigated. The wound appears very clean. The wound was packed with gauze. Patient tolerated procedure well with no apparent complications.
[2018-03-25] MEDS: FENTANYL CITRATE INJ/PF 100 MCG/2 ML AMPUL ONE ×2 (14:44→14:58)
[2018-03-25] MEDS ORDERED: LORAZEPAM INJ 2 MG/1 ML VIAL ONE (15:09)
[2018-03-25] MEDS: CEFAZOLIN 1 GM/D5W RTU 1 GM/50 ML RTUPB IV SCH ×2 (18:59→23:14)
[2018-03-25] MEDS ORDERED: LORAZEPAM 1 MG TABLET PO PRN (20:19)
[2018-03-25] MEDS ORDERED: ALBUTEROL SULFATE 0.083% NEB 2.5 MG/3 ML AMPUL NEB PRN (20:19)
--- NOTE | 2018-03-25 20:25 | PDOC PROGRESS REPORT ---
Subjective Progress Note for:: 03/25/18 Subjective:: Poor pain control. Patient states that she is on chronic narcotics and needs something other than her baseline meds for pain control. Patient does have widely metastatic breast cancer. Reason For Visit: INFECTED SEBACEOUS CYST ON THE LEFT FACE Physical Exam Vital Signs: Temp Pulse Resp BP Pulse Ox 97.8 F 70 16 107/83 100 03/25/18 18:28 03/25/18 18:28 03/25/18 18:28 03/25/18 18:28 03/25/18 18:28 Intake & Output 03/24/18 03/25/18 03/26/18 06:59 06:59 06:59 Intake Total 700 Balance 700 Weight 61.23 kg General appearance: PRESENT: cooperative Head exam: PRESENT: other - Left face has decreased swelling. Dressings are intact. Respiratory exam: PRESENT: wheezes Cardiovascular exam: PRESENT: RRR Results Laboratory Results: 03/25/18 12:30 03/25/18 12:30 03/25/18 03/25/18 12:30 12:30 WBC 5.8 RBC 3.93 Hgb 11.7 L Hct 34.6 L MCV 88 MCH 29.7 MCHC 33.7 RDW 17.8 H Plt Count 351 Sodium 141.0 Potassium 4.1 Chloride 104 Carbon Dioxide 31 H Anion Gap 6 BUN 10 Creatinine 0.75 Est GFR ( Amer) > 60 Est GFR (Non-Af Amer) > 60 Glucose 79 Calcium 9.4 Assessment & Plan - Diagnosis (1) Infected sebaceous cyst Is this a current diagnosis for this admission?: Yes Plan: Status post excisional debridement today. The region already looks better. Continue IV antibiotics. Will likely be up to discharge patient home in the morning. Will place her on Dilaudid for pain control in light of her chronic narcotic use and the patient having end-stage breast cancer.
[2018-03-25] MEDS ORDERED: OXYCODONE HCL IR 5 MG TABLET PO PRN (20:27)
[2018-03-25] MEDS ORDERED: OXYCODONE HCL SR 10 MG TABLET PO SCH (22:00)
[2018-03-25] MEDS ORDERED: OXYCODONE HCL 60 MG PO SCH (22:00)
[2018-03-26] MEDS: HYDROMORPHONE HCL INJ/PF 2 MG/ML AMPULE IV PRN ×3 (00:44→09:27)
[2018-03-26] MEDS ORDERED: ONDANSETRON 4 MG TAB.RAPDIS PO ONE (01:30)
[2018-03-26] MEDS ORDERED: ONDANSETRON HCL INJ/PF 4 MG/2 ML SDV IV PRN (03:46)
[2018-03-26] MEDS ORDERED: ALBUTEROL SULFATE 0.083% NEB 2.5 MG/3 ML AMPUL NEB PRN (03:46)
[2018-03-26] MEDS: CEFAZOLIN 1 GM/D5W RTU 1 GM/50 ML RTUPB IV SCH (05:00)
[2018-03-26] MEDS ORDERED: LANSOPRAZOLE 15 MG TAB.RAP.DR PO SCH (06:00)
--- NOTE | 2018-03-26 09:34 | PDOC DISCHARGE SUMMARY ---
General - Admit/Disc Date/PCP Admission Date/Primary Care Provider: MARTINEZ MORATAYA MD Discharge Date: 03/26/18 - Discharge Diagnosis (1) Infected sebaceous cyst Is this a current diagnosis for this admission?: Yes - Additional Information Discharge Diet: As Tolerated Discharge Activity: Activity As Tolerated Home Medications: Albuterol Sulfate [Ventolin 0.083% Neb 2.5 mg/3 mL Ampul] 2.5 mg NEB Q4HP PRN Esomeprazole Magnesium [Nexium 24Hr] 20 mg PO DAILY 03/25/18 Linaclotide [Linzess] 145 mcg PO DAILY 03/25/18 Lorazepam [Ativan 1 mg Tablet] 1 mg PO Q6HP PRN 03/25/18 Ondansetron HCl [Zofran 4 mg Tablet] 4 mg PO BID 03/25/18 Oxycodone HCl [Oxycodone HCl 10 MG Tablet] 10 mg PO Q6HP PRN 03/25/18 Oxycodone HCl [Oxycontin] 60 mg PO Q12 03/25/18 History of Present Illness History of Present Illness: EFFIE LOUIS is a 37 year old female admitted with an abscess to the left face. The patient underwent incision and drainage yesterday. Hospital Course Hospital Course: Patient was admitted and taken to the operating room where I&D of the left facial abscess was performed. The patient is doing well this morning. She reports that her pain is much improved. Patient is requesting discharge home. I recommended dry dressings with Neosporin twice daily. It is okay for her to shower. I will have her follow-up in the office in 2 weeks. Physical Exam Vital Signs: Temp Pulse Resp BP Pulse Ox 97.5 F 83 16 102/60 98 03/26/18 09:00 03/26/18 09:00 03/26/18 09:00 03/26/18 09:00 03/26/18 09:00 Intake & Output 03/25/18 03/26/18 03/27/18 06:59 06:59 06:59 Intake Total 1300 Balance 1300 Weight 59 kg Results Laboratory Results: 03/25/18 12:30 03/25/18 12:30 03/25/18 03/25/18 12:30 12:30 WBC 5.8 RBC 3.93 Hgb 11.7 L Hct 34.6 L MCV 88 MCH 29.7 MCHC 33.7 RDW 17.8 H Plt Count 351 Sodium 141.0 Potassium 4.1 Chloride 104 Carbon Dioxide 31 H Anion Gap 6 BUN 10 Creatinine 0.75 Est GFR ( Amer) > 60 Est GFR (Non-Af Amer) > 60 Glucose 79 Calcium 9.4 Qualifiers - * PATIENT BEING DISCHARGED WITH ANY OF THE FOLLOWING DIAGNOSIS: No Plan Discharge Plan: Follow-up at [facility] in 2 weeks.
[2018-03-26] MEDS ORDERED: (PENDING PHARMACY ID) (Esomeprazole Magnesium [Nexium 24hr] 20 MG) PO SCH (10:00)
[2018-03-26] MEDS ORDERED: ONDANSETRON 4 MG TAB.RAPDIS PO SCH ×2 (10:00)
[2018-03-26] MEDS ORDERED: (PENDING PHARMACY ID) (Linaclotide [Linzess] 145 MCG) PO SCH (10:00)
[2018-03-26] MEDS ORDERED: (PENDING PHARMACY ID) (Ondansetron Hcl [Zofran 4 Mg Tablet] 4 MG) PO SCH (10:00)
[2018-03-26 11:40] VITALS: BP 110/71
== END 2018-03-26 12:15 | disposition home or self-care (01) ==
LOC: OROUT 11:58 → 2N 16:35 → OROUT 03-26 12:15
PROVIDERS: ATTEND Surgery
DX: L02.01 Cutaneous abscess of face (principal); C50.919 Malignant neoplasm of unspecified site of unspecified female breast; C78.00 Secondary malignant neoplasm of unspecified lung; I20.9 Angina pectoris, unspecified; I89.0 Lymphedema, not elsewhere classified; G40.909 Epilepsy, unspecified, not intractable, without status epilepticus; M79.7 Fibromyalgia; Z87.891 Personal history of nicotine dependence; Z79.891 Long term (current) use of opiate analgesic; Z79.899 Other long term (current) drug therapy; Z86.718 Personal history of other venous thrombosis and embolism; Z23 Encounter for immunization
CPT/HCPCS: 36415; 87070; 87205; 85027; 81025; 87075; 80048; 90686; 94640; 11042; G0008; J2250; J0690 ×2; S0119; J3010; J3490 ×4; J1170; J2060; J2405; J2704; 300; 90471

== ENCOUNTER 2018-06-30 11:23 | Inpatient (IN) | payer MEDICAID ==
--- NOTE | 2018-06-30 12:16 | ER Document Report ---
ED General - General Chief Complaint: Breathing Difficulty Stated Complaint: DIFFICULTY BREATHING, VOMITING Time Seen by Provider: 06/30/18 11:58 Notes: Patient is complaining of difficulty breathing since last night. She has had a recent cough with phlegm production. Since she has been running low-grade fevers. Patient has a history of right breast cancer which is now metastatic to her other breast, brain, and stomach. She has been treated with radiation therapy and is currently on chemo therapy plus a pill by Dr. Yohannes curiel. She is also cared for at [facility]. In the past, she has had a right pleural effusions that needed to be drained. Patient has Percocet for pain, but says is not working. She has general body aches. TRAVEL OUTSIDE OF THE [place] IN LAST 30 DAYS: No - Related Data Allergies/Adverse Reactions: Adhesive Bandage * [Adhesive Bandage] Allergy (Mild, Verified 06/30/18 11:25) Generalized rash adhesive tape [Adhesive Tape] Allergy (Mild, Verified 06/30/18 11:25) Generalized rash Past Medical History - Social History Smoking Status: Unknown if Ever Smoked Family History: Reviewed & Not Pertinent, DM, Other - Started to review with patient though - Past Medical History Cardiac Medical History: Denies: Hx Coronary Artery Disease, Hx Heart Attack, Hx Hypertension Pulmonary Medical History: Reports: Hx Asthma - TEENAGER, Hx Pneumonia - recently d/c'd 05/10/17, Hx Respiratory Failure, Other - History of right pleural effusion requiring drainage. Denies: Hx Bronchitis, Hx COPD, Hx Tuberculosis Neurological Medical History: Reports: Hx Migraine, Hx Seizures. Denies: Hx Cerebrovascular Accident Malignancy Medical History: Reports: Hx Brain Cancer, Hx Breast Cancer - right mastectomy. With metastases to brain and lungs and pleural fluid, Hx Lung Cancer GI Medical History: Reports: Hx Gastroesophageal Reflux Disease. Denies: Hx Hiatal Hernia Musculoskeletal Medical History: Reports Hx Fibromyalgia Psychiatric Medical History: Denies: Hx Depression Infectious Medical History: Past Surgical History: Reports: Hx Breast Surgery - R mastectomy/lumpectomy, Hx Section - x2, Hx Cholecystectomy, Hx Mastectomy - Right right mastectomy with axillary node dissection, Hx Orthopedic Surgery, Hx Tonsillectomy, Hx Tubal Ligation, Hx Vascular Surgery - Left chest wall port - Immunizations Hx Diphtheria, Pertussis, Tetanus Vaccination: Yes Hx Pneumococcal Vaccination: 04/30/13 Review of Systems - Review of Systems Notes: REVIEW OF SYSTEMS: CONSTITUTIONAL : Denies fever. EENT: Denies eye, ear, nose or mouth or throat pain or other symptoms. CARDIOVASCULAR: See HPI. RESPIRATORY: Developed a cough last night. Is having shortness of breath. GASTROINTESTINAL: Denies abdominal pain or nausea or diarrhea. Has vomited a few times. GENITOURINARY: Denies difficulty or painful urinating, urinary frequency, blood in urine. MUSCULOSKELETAL: Denies back or neck pain. Denies joint pain or swelling. Has a Port-A-Cath in her left shoulder. SKIN: Denies rash or skin lesions. NEUROLOGICAL: Denies LOC or altered mental status. Denies sensory loss or motor deficits. ALL OTHER SYSTEMS REVIEWED AND NEGATIVE. Physical Exam - Vital signs Vitals: Temp Pulse Resp BP Pulse Ox 98.6 F 115 H 30 H 135/98 H 99 06/30/18 11:32 06/30/18 11:32 06/30/18 11:32 06/30/18 11:32 06/30/18 11:32 Interpretation: Normal, Tachycardic - Mild Notes: PHYSICAL EXAMINATION: GENERAL: Crying, complaining of pain in her right chest. HEAD: Atraumatic, normocephalic. EYES: Pupils equal round and reactive to light, extraocular movements intact. ENT: oropharynx clear without exudates. Moist mucous membranes. NECK: Normal range of motion, supple. LUNGS: Breath sounds clear and equal bilaterally. Port in the left upper chest region. HEART: Regular rate and rhythm without murmurs. Tender to press across the anterior chest. Heart rate about 110 at bedside by me. ABDOMEN: Soft, nontender. No guarding or rebound. No masses. BACK: No tenderness throughout entire back. EXTREMITIES: Normal range of motion without pain. NEUROLOGICAL: Normal speech, normal gait. Normal sensory, motor, and reflex exams. Awake, alert, and oriented x3. Cranial nerves normal. PSYCH: Tearful, sad, appears to be in pain. SKIN: Warm, dry, no rashes. Course - Re-evaluation Re-evalutation: 06/30/18 20:16 Patient was given pain medications a couple of times without complete relief. I spoke with Dr. Ahn who requested the patient be admitted for pain control. I told him about the pericardial effusion. I spoke with Dr. Spencer, the nighttime hospitalist, and he is agreeable to admitting the patient for pain management. Further investigation of the pericardial effusion will be performed. - Vital Signs Vital signs: Temp Pulse Resp BP Pulse Ox 98 F 115 H 35 H 103/88 H 100 06/30/18 16:03 06/30/18 11:32 06/30/18 17:04 06/30/18 16:03 06/30/18 16:03 - Laboratory Result Diagrams: 06/30/18 12:07 06/30/18 12:07 Laboratory results interpreted by me: 06/30/18 06/30/18 12:07 12:07 RBC 3.58 L Hct 35.6 L MCV 99 H MCH 33.7 H RDW 17.5 H Monocytes % 15.0 H Glucose 114 H Discharge - Discharge Clinical Impression: Chest wall pain, Breast cancer metastasized to brain, Pericardial effusion, Metastatic breast cancer Condition: Stable Disposition: ADMITTED INPATIENT Admitting Provider: Hospitalist Unit Admitted: [facility]
[2018-06-30] MEDS ORDERED: ONDANSETRON HCL INJ/PF 4 MG/2 ML SDV IV ONE ×2 (12:19→14:59)
[2018-06-30] MEDS ORDERED: MORPHINE SULFATE 10 MG/ML INJ IV ONE (12:20)
[2018-06-30 12:25] LABS: ABSOLUTE EOSINOPHILS # (AUTO) 0.1 10^3/uL (0.0-0.6); ABSOLUTE LYMPHOCYTES (AUTO) 0.9 10^3/uL (0.5-4.7); ABSOLUTE MONOCYTES (AUTO) 0.8 10^3/uL (0.1-1.4); ABSOLUTE NEUT (AUTO) 3.2 10^3/uL (1.7-8.2); BASOPHILS % (AUTO) 0.9 % (0-2); EOSINOPHILS % (AUTO) 2.6 % (0-6); HEMATOCRIT 35.6 % (36.0-47.0); HEMOGLOBIN 12.1 g/dL (12.0-15.5); LYMPHOCYTES % (AUTO) 18.8 % (13-45); MEAN CORPUSCULAR HEMOGLOBIN 33.7 pg (27.0-33.4); MEAN CORPUSCULAR VOLUME 99 fl (80-97); PLATELET COUNT 301 10^3/uL (150-450); RED BLOOD COUNT 3.58 10^6/uL (3.72-5.28); RED CELL DISTRIBUTION WIDTH 17.5 % (11.5-14.0); SEGMENTED NEUTROPHILS % (AUTO) 62.7 % (42-78); TOTAL CELLS COUNTED % (AUTO) 100 %
[2018-06-30 12:39] LABS: ALANINE AMINOTRANSFERASE 22 U/L (9-52); ALKALINE PHOSPHATASE 80 U/L (38-126); ANION GAP 9 (5-19); ASPARTATE AMINO TRANSFERASE 23 U/L (14-36); BILIRUBIN,DIRECT 0.2 mg/dL (0.0-0.4); BILIRUBIN,TOTAL 0.4 mg/dL (0.2-1.3); BLOOD UREA NITROGEN 11 mg/dL (7-20); CALCIUM 9.2 mg/dL (8.4-10.2); CARBON DIOXIDE 26 mmol/L (22-30); CHLORIDE 106 mmol/L (98-107); CREATINE KINASE 61 U/L (30-135); GLUCOSE 114 mg/dL (75-110); POTASSIUM 3.7 mmol/L (3.6-5.0); SODIUM 140.9 mmol/L (137-145); TOTAL PROTEIN 7.1 g/dL (6.3-8.2)
--- NOTE | 2018-06-30 13:24 | RADIOLOGY REPORT (SQ) ---
EXAM DESCRIPTION: CHEST 2 VIEWS COMPLETED DATE/TIME: 06/30/2018 1:07 pm REASON FOR STUDY: HX breast cancer with metastases to brain, breast, COMPARISON: 03/17/2018 EXAM PARAMETERS: NUMBER OF VIEWS: two views TECHNIQUE: Digital Frontal and Lateral radiographic views of the chest acquired. RADIATION DOSE: NA LIMITATIONS: none FINDINGS: LUNGS AND PLEURA: Slight interval increase in right-sided pleural effusion and associated atelectasis or consolidation. MEDIASTINUM AND HILAR STRUCTURES: No masses or contour abnormalities. HEART AND VASCULAR STRUCTURES: Unchanged cardiomegaly BONES: No acute findings. HARDWARE: None in the chest. OTHER: Left chest port catheter IMPRESSION: Slight interval increase in right-sided pleural effusion and associated atelectasis or c onsolidation. TECHNICAL DOCUMENTATION: JOB ID: [id number] [employer]- All Rights Reserved Reading location - IP/workstation name: [email or web address]
[2018-06-30] MEDS ORDERED: HYDROMORPHONE HCL INJ/PF 2 MG/ML AMPULE IV ONE (14:58)
[2018-06-30] MEDS ORDERED: DIPHENHYDRAMINE HCL 50 MG/ML VIAL IV ONE (14:59)
[2018-06-30] MEDS: SODIUM BICARBONATE 8.4% INJ 50 MEQ/50 ML DISP.SYRIN IV ONE ×2 (15:26→15:34)
--- NOTE | 2018-06-30 18:29 | RADIOLOGY REPORT (SQ) ---
EXAM DESCRIPTION: CTA CHEST COMPLETED DATE/TIME: 06/30/2018 6:18 pm REASON FOR STUDY: Metastatic breast cancer. Right chest pain and sob COMPARISON: 06/30/2018, CT scan March 2018 TECHNIQUE: CT scan of the chest performed using helical scanning technique with dynamic intravenous contrast injection. Images reviewed with lung, soft tissue and bone windows. Reconstructed coronal and sagittal MPR images reviewed. Additional 3 dimensional post-processing performed to develop Maximal Intensity Projection images (MT P). All images stored on PACS. All CT scanners at this facility use dose modulation, iterative reconstruction, and/or weight based d osing when appropriate to reduce radiation dose to as low as reasonably achievable (ALARA). [facility]: Dose Right [facility]: CareDose [facility]: Dose Right [facility]: Teradose 4D [facility]: MyColorScreen CONTRAST TYPE AND DOSE: contrast/concentration: Isovue 350.00 mg/ml; Total Contrast Delivered: 68.0 ml; Total Saline Delivered: 108.0 ml Contrast bolus optimized for the pulmonary arteries. Not diagnostic for the aorta. RENAL FUNCTION: None required. The patient is less than 50 years old. RADIATION DOSE: CT Rad equipment meets quality standard of care and radiation dose reduction techniq ues were employed. CTDIvol: 14.3 - 33.1 mGy. DLP: 567 mGy-cm. . LIMITATIONS: None. FINDINGS: LUNGS AND PLEURA: Extensive pleural changes on the right. Not significantly different jann n previous. No focal opacities. AORTA AND GREAT VESSELS: No aneurysm. Contrast bolus not optimized for the aorta. HEART: Moderate pericardial effusion. No significant coronary artery calcifications. PULMONARY ARTERIES: No emboli visualized in the main pulmonary arteries or the segmental branches. HILAR AND MEDIASTINAL STRUCTURES: No identified masses or abnormal nodes. HARDWARE: Venous access catheter. UPPER ABDOMEN: No significant findings. Limited exam. THYROID AND OTHER SOFT TISSUES: No masses. No adenopathy. BONES: No acute or significant finding. 3D MIPS: Confirm above findings. OTHER: No other significant finding. IMPRESSION: No pulmonary emboli. Extensive pleural changes on the right without significant change. Interval development of a moderate pericardial effusion. COMMENT: Quality ID # [id number]: Final reports with documentation of one or more dose reduction techniques (e.g., Automated exposure control, adjustment of the mA and/or kV according to patient size, use of iterative reconstruction technique) TECHNICAL DOCUMENTATION: JOB ID: [id number] [employer]- All Rights Reserved Reading location - IP/workstation name: [email or web address]
[2018-06-30 19:15] LABS: APPEARANCE,URINE CLEAR; BILIRUBIN,URINE NEGATIVE (NEGATIVE); COLOR,URINE YELLOW; GLUCOSE, URINE NEGATIVE (NEGATIVE); KETONES,URINE NEGATIVE (NEGATIVE); LEUKOCYTE ESTERASE,URINE NEGATIVE (NEGATIVE); NITRITE,URINE NEGATIVE (NEGATIVE); PROTEIN,URINE NEGATIVE (NEGATIVE); URINE SPECIFIC GRAVITY 1.031; UROBILINOGEN,URINE NEGATIVE mg/dL (<2.0)
[2018-06-30] MEDS ORDERED: LORAZEPAM 1 MG TABLET PO PRN (19:44)
[2018-06-30] MEDS ORDERED: MAG HYDROX/AL HYDROX/SIMETH SUSP 30 ML UDCUP PO PRN (19:46)
[2018-06-30] MEDS ORDERED: HYDROMORPHONE HCL INJ/PF 2 MG/ML AMPULE IV PRN (19:46)
[2018-06-30] MEDS ORDERED: IPRATROPIUM/ALBUTEROL 0.5-2.5 MG/3 ML AMPUL NEB PRN (19:46)
[2018-06-30] MEDS ORDERED: ACETAMINOPHEN 325 MG TABLET PO PRN (19:46)
[2018-06-30] MEDS ORDERED: NORMAL SALINE 1000 ML 1,000 ML IV SCH (20:00)
[2018-06-30] MEDS: HYDROMORPHONE HCL INJ/PF 2 MG/ML AMPULE IV PRN ×2 (20:48→23:29)
[2018-06-30] MEDS ORDERED: OXYCODONE HCL 60 MG PO SCH (22:00)
[2018-06-30] MEDS ORDERED: FENTANYL 50 MCG/HR PATCH.TD72 TD SCH (22:00)
[2018-07-01] MEDS: HEPARIN SOD (PORCINE) 5,000 UNIT/ML 1 ML SYRINGE SUBCUT SCH ×4 (01:26→21:10)
[2018-07-01] MEDS: HYDROMORPHONE HCL INJ/PF 2 MG/ML AMPULE IV PRN ×4 (01:40→20:27)
[2018-07-01] MEDS: NORTRIPTYLINE HCL 10 MG CAPSULE PO SCH ×2 (01:45→22:47)
[2018-07-01] MEDS ORDERED: NALOXONE HCL INJ/PF 0.4 MG/1 ML SDV ONE (02:25)
[2018-07-01 02:59] LABS: ARTERIAL BLOOD H2CO3 1.54 mmol/L (1.05-1.35); ARTERIAL BLOOD HCO3 24.8 mmol/L (20-24); ARTERIAL BLOOD O2 SATURATION 95.8 % (94-98); ARTERIAL BLOOD PCO2 51.1 mmHg (35-45); ARTERIAL BLOOD PO2 88.5 mmHg (80-100); ARTERIAL BLOOD TOTAL CO2 26.4 mmol/L (21-25)
[2018-07-01] MEDS ORDERED: NALOXONE HCL INJ/PF 0.4 MG/1 ML SDV IV ONE (03:00)
[2018-07-01 03:03] LABS: ARTERIAL BLOOD FIO2 30%
--- NOTE | 2018-07-01 03:36 | PDOC H&P ---
History of Present Illness Admission Date/PCP: 06/30/18 20:00 MARTINEZ MORATAYA MD Patient complains of: Shortness of breath and intractable pain History of Present Illness: EFFIE LOUIS is a 38 year old female with a past medical history of stage IV breast cancer with metastasis to brain, stomach and recurrent malignant pleural effusion. she presents with 12 hours of intractable diffuse pain not amenable to outpatient regiment. She denies recent change or running out of medications at home. In the emergency room she complains of shortness of breath and is tachypneic admitting low-grade fevers. She receives IV Dilaudid and referred to the hospitalist for admission. Patient is awake and alert though writhing in pain reiterating her CODE STATUS is DO NOT INTUBATE. CT reveals extensive pleural changes and a small pericardial effusion. She has no JVD or pulses paradoxus. Past Medical History Cardiac Medical History: Denies: Coronary Artery Disease, Myocardial Infarction, Hypertension Pulmonary Medical History: Reports: Asthma - TEENAGER, Pneumonia - recently d/c'd 05/10/17, Respiratory Failure, Other - History of right pleural effusion requiring drainage. Denies: Bronchitis, Chronic Obstructive Pulmonary Disease (COPD), Tuberculosis Neurological Medical History: Reports: Migraine, Seizures Endocrine Medical History: Denies: Diabetes Mellitus Type 1, Diabetes Mellitus Type 2 Malignancy Medical History: Reports: Brain Cancer, Breast Cancer - right mastectomy. With metastases to brain and lungs and pleural fluid, Lung Cancer GI Medical History: Reports: Gastroesophageal Reflux Disease Denies: Hiatal Hernia Musculoskeltal Medical History: Reports: Fibromyalgia Denies: Arthritis Skin Medical History: Denies: Eczema Psychiatric Medical History: Denies: Depression Hematology: Denies: Anemia, Sickle Cell Disease Past Surgical History Past Surgical History: Reports: Amputation, Section - x2, Cholecyste ctomy, Mastectomy - Right right mastectomy with axillary node dissection, Orthopedic Surgery, Tonsillectomy, Tubal Ligation, Vascular Surgery - Left chest wall port Social History Information Source: Patient, [facility] Records Lives with: Friend Smoking Status: Unknown if Ever Smoked Frequency of Alcohol Use: None Hx Recreational Drug Use: No Drugs: None Hx Prescription Drug Abuse: No - Advance Directive Resuscitation Status: Do Not Intubate Family History Family History: DM, Other - Started to review with patient though Parental Family History Reviewed: Yes Children Family History Reviewed: Yes Sibling(s) Family History Reviewed.: Yes Medication/Allergy Home Medications: Esomeprazole Magnesium [Nexium] 20 mg PO DAILY 06/30/18 Nortriptyline HCl [Pamelor 10 Mg Capsule] 10 mg PO QHS 06/30/18 Oxycodone HCl [Oxy-Ir 5 mg Tablet] 40 mg PO Q4HP PRN 06/30/18 Allergies/Adverse Reactions: Adhesive Bandage * [Adhesive Bandage] Allergy (Mild, Verified 06/30/18 11:25) Generalized rash adhesive tape [Adhesive Tape] Allergy (Mild, Verified 06/30/18 11:25) Generalized rash Review of Systems Constitutional: PRESENT: as per HPI, anorexia, fatigue, fever(s), weakness, weight loss Eyes: ABSENT: visual disturbances Ears: ABSENT: hearing changes Cardiovascular: PRESENT: chest pain, dyspnea on exertion. ABSENT: edema, orthropnea, palpitations Respiratory: PRESENT: as per HPI, cough, hemoptysis. ABSENT: sputum Gastrointestinal: PRESENT: bloating, nausea. ABSENT: abdominal pain, constipation, diarrhea, hematemesis, hematochezia, vomiting Genitourinary: ABSENT: dysuria, hematuria Musculoskeletal: ABSENT: joint swelling Integumentary: ABSENT: rash, wounds Neurological: ABSENT: abnormal gait, abnormal speech, confusion, dizziness, focal weakness, syncope Psychiatric: ABSENT: anxiety, depression, homidical ideation, suicidal ideation Endocrine: ABSENT: cold intolerance, heat intolerance, polydipsia, polyuria Hematologic/Lymphatic: ABSENT: easy bleeding, easy bruising Physical Exam Vital Signs: Temp Pulse Resp BP Pulse Ox 97.3 F 96 14 136/97 H 100 06/30/18 23:47 07/01/18 02:47 07/01/18 02:47 07/01/18 02:47 07/01/18 02:47 Intake & Output 06/29/18 06/30/18 07/01/18 11:59 11:59 11:59 Weight 67.7 kg 70.1 kg General appearance: PRESENT: cooperative, severe distress, well-developed, well- nourished Head exam: PRESENT: atraumatic, normocephalic Eye exam: PRESENT: conjunctiva pink, EOMI, PERRLA. ABSENT: scleral icterus Ear exam: PRESENT: normal external ear exam Mouth exam: PRESENT: moist, tongue midline Neck exam: PRESENT: full ROM, lymphadenopathy. ABSENT: carotid bruit, JVD, thyromegaly Respiratory exam: PRESENT: accessory muscle use, clear to auscultation jose, crackles, prolonged expiratory phas, rales, retraction, symmetrical, tachypnea. ABSENT: rhonchi, wheezes Cardiovascular exam: PRESENT: RRR. ABSENT: diastolic murmur, rubs, systolic murmur Pulses: PRESENT: normal dorsalis pedis pul Vascular exam: PRESENT: normal capillary refill GI/Abdominal exam: PRESENT: normal bowel sounds, soft. ABSENT: distended, guarding, mass, organolmegaly, rebound, tenderness Rectal exam: PRESENT: deferred Extremities exam: PRESENT: full ROM. ABSENT: calf tenderness, clubbing, pedal edema Neurological exam: PRESENT: alert, altered, awake, oriented to person, oriented to place, oriented to situation, CN II-XII grossly intact. ABSENT: motor sensory deficit Psychiatric exam: PRESENT: anxious, appropriate affect, normal mood. ABSENT: homicidal ideation, suicidal ideation Skin exam: PRESENT: dry, intact, warm. ABSENT: cyanosis, rash Results Laboratory Results: 06/30/18 12:07 06/30/18 12:07 06/30/18 06/30/18 06/30/18 12:07 12:07 12:07 WBC 5.0 RBC 3.58 L Hgb 12.1 Hct 35.6 L MCV 99 H MCH 33.7 H MCHC 34.0 RDW 17.5 H Plt Count 301 Seg Neutrophils % 62.7 Lymphocytes % 18.8 Monocytes % 15.0 H Eosinophils % 2.6 Basophils % 0.9 Absolute Neutrophils 3.2 Absolute Lymphocytes 0.9 Absolute Monocytes 0.8 Absolute Eosinophils 0.1 Absolute Basophils 0.0 Carbonic Acid HCO3/H2CO3 Ratio ABG pH ABG pCO2 ABG pO2 ABG HCO3 ABG O2 Saturation ABG Base Excess FiO2 Sodium 140.9 Potassium 3.7 Chloride 106 Carbon Dioxide 26 Anion Gap 9 BUN 11 Creatinine 0.89 Est GFR ( Amer) > 60 Est GFR (Non-Af Amer) > 60 Glucose 114 H Calcium 9.2 Total Bilirubin 0.4 AST 23 ALT 22 Alkaline Phosphatase 80 Total Protein 7.1 Albumin 4.0 Serum HCG, Qual NEGATIVE Urine Color Urine Appearance Urine pH Ur Specific [place] Urine Protein Urine Glucose (UA) Urine Ketones Urine Blood Urine Nitrite Ur Leukocyte Esterase Urine WBC (Auto) Urine RBC (Auto) 06/30/18 07/01/18 18:45 02:35 WBC RBC Hgb Hct MCV MCH MCHC RDW Plt Count Seg Neutrophils % Lymphocytes % Monocytes % Eosinophils % Basophils % Absolute Neutrophils Absolute Lymphocytes Absolute Monocytes Absolute Eosinophils Absolute Basophils Carbonic Acid 1.54 H HCO3/H2CO3 Ratio 16:1 ABG pH 7.30 L ABG pCO2 51.1 H ABG pO2 88.5 ABG HCO3 24.8 H ABG O2 Saturation 95.8 ABG Base Excess -2.0 FiO2 30% Sodium Potassium Chloride Carbon Dioxide Anion Gap BUN Creatinine Est GFR ( Amer) Est GFR (Non-Af Amer) Glucose Calcium Total Bilirubin AST ALT Alkaline Phosphatase Total Protein Albumin Serum HCG, Qual Urine Color YELLOW Urine Appearance CLEAR Urine pH 5.0 Ur Specific [place] 1.031 Urine Protein NEGATIVE Urine Glucose (UA) NEGATIVE Urine Ketones NEGATIVE Urine Blood NEGATIVE Urine Nitrite NEGATIVE Ur Leukocyte Esterase NEGATIVE Urine WBC (Auto) 2 Urine RBC (Auto) 0 06/30/18 12:07 Creatine Kinase 61 Impressions: Chest X-Ray 06/30/18 12:17 IMPRESSION: Slight interval increase in right-sided pleural effusion and associated atelectasis or consolidation. Chest/Abdomen CTA 06/30/18 17:37 IMPRESSION: No pulmonary emboli. Extensive pleural changes on the right without significant change. Interval development of a moderate pericardial effusion. Assessment & Plan - Diagnosis (1) Breast cancer metastasized to brain Is this a current diagnosis for this admission?: Yes Plan: Supportive care, oncology consult (2) Chest wall pain Is this a current diagnosis for this admission?: Yes Plan: Optimize analgesic with fentanyl patch, Toradol and Dilaudid as needed (3) Pericardial effusion Is this a current diagnosis for this admission?: Yes Plan: Evaluated with cardiology felt overestimated by CT. No evidence for Erskine nod (4) Bacterial pneumonia Is this a current diagnosis for this admission?: Yes Plan: Tachypneic with rales, empiric antibiotics, Flonase, duo nebs every 12 with incentive spirometry - Time Time Spent: 50 to 70 Minutes - Inpatient Certification Medical Necessity: Need Close Monitoring Due to Risk of Patient Decompensation
[2018-07-01] MEDS ORDERED: NORMAL SALINE 1000 ML 1,000 ML IV PRN (05:00)
[2018-07-01] MEDS ORDERED: KETOROLAC TROMETHAMINE INJ/PF 30 MG/1 ML SDV IV PRN ×2 (06:03→06:30)
[2018-07-01 07:36] LABS: ABSOLUTE MONOCYTES (AUTO) 0.9 10^3/uL (0.1-1.4); ABSOLUTE NEUT (AUTO) 4.8 10^3/uL (1.7-8.2); BASOPHILS % (AUTO) 0.7 % (0-2); EOSINOPHILS % (AUTO) 0.2 % (0-6); HEMATOCRIT 33.3 % (36.0-47.0); HEMOGLOBIN 11.1 g/dL (12.0-15.5); LYMPHOCYTES % (AUTO) 14.5 % (13-45); MEAN CORPUSCULAR HEMOGLOBIN 33.5 pg (27.0-33.4); MEAN CORPUSCULAR HGB CONC 33.4 g/dL (32.0-36.0); MEAN CORPUSCULAR VOLUME 100 fl (80-97); MONOCYTES % (AUTO) 13.2 % (3-13); PLATELET COUNT 280 10^3/uL (150-450); RED BLOOD COUNT 3.32 10^6/uL (3.72-5.28); RED CELL DISTRIBUTION WIDTH 17.2 % (11.5-14.0); SEGMENTED NEUTROPHILS % (AUTO) 71.4 % (42-78); TOTAL CELLS COUNTED % (AUTO) 100 %; WHITE BLOOD COUNT 6.7 10^3/uL (4.0-10.5)
[2018-07-01 07:45] LABS: ANION GAP 8 (5-19); BLOOD UREA NITROGEN 9 mg/dL (7-20); CALCIUM 9.2 mg/dL (8.4-10.2); CARBON DIOXIDE 29 mmol/L (22-30); CHLORIDE 101 mmol/L (98-107); GLUCOSE 111 mg/dL (75-110); POTASSIUM 4.2 mmol/L (3.6-5.0); SODIUM 138.2 mmol/L (137-145)
[2018-07-01] MEDS ORDERED: ONDANSETRON HCL INJ/PF 4 MG/2 ML SDV ONE (07:58)
--- NOTE | 2018-07-01 08:51 | PDOC CONSULTATION ---
Consultation Consult Date: 07/01/18 Attending physician:: ROSETTA VILLANUEVA Consult reason:: Severe pain chest History of Present Illness Admission Date/PCP: 06/30/18 20:00 MARTINEZ MORATAYA MD Patient complains of: Chest pain History of Present Illness: EFFIE LOUIS is a 38 year old female with known history of stage IV breast cancer now with metastatic lesions to the chest known over the last year or so. She is currently on Xeloda. And actually having a very good response to therapy, she also has brain metastasis, most recent imaging done of the brain about 2 months ago indicated overall complete response to previous whole brain radiation. She comes in with a 2-day history of increasing chest pain, and CTA of the chest indicated that the lung lesions were stable but there seem to be a new moderate pericardial effusion. Of note she also has known fibromyalgia, and any cold weather changes seem to cause a flare in that. So she is having whole body pain. Past Medical History Cardiac Medical History: Denies: Coronary Artery Disease, Myocardial Infarction, Hypertension Pulmonary Medical History: Reports: Asthma - TEENAGER, Pneumonia - recently d/c'd 05/10/17, Respiratory Failure, Other - History of right pleural effusion requiring drainage. Denies: Bronchitis, Chronic Obstructive Pulmonary Disease (COPD), Tuberculosis Neurological Medical History: Reports: Migraine, Seizures Endocrine Medical History: Denies: Diabetes Mellitus Type 1, Diabetes Mellitus Type 2 Malignancy Medical History: Reports: Brain Cancer, Breast Cancer - right mastectomy. With metastases to brain and lungs and pleural fluid, Lung Cancer GI Medical History: Reports: Gastroesophageal Reflux Disease Denies: Hiatal Hernia Musculoskeltal Medical History: Reports: Fibromyalgia Denies: Arthritis Skin Medical History: Denies: Eczema Psychiatric Medical History: Denies: Depression Hematology: Denies: Anemia, Sickle Cell Disease Past Surgical History Past Surgical History: Reports: Amputation, Section - x2, Cholecystectomy, Mastectomy - Right right mastectomy with axillary node dissection, Orthopedic Surgery, Tonsillectomy, Tubal Ligation, Vascular Surgery - Left chest wall port Social History Lives with: Friend Smoking Status: Unknown if Ever Smoked Frequency of Alcohol Use: None Hx Recreational Drug Use: No Drugs: None Hx Prescription Drug Abuse: No - Advance Directive Resuscitation Status: Do Not Intubate Family History Family History: DM, Other - Started to review with patient though Parental Family History Reviewed: Yes Children Family History Reviewed: Yes Sibling(s) Family History Reviewed.: Yes Medication/Allergy Home Medications: Esomeprazole Magnesium [Nexium] 20 mg PO DAILY 06/30/18 Nortriptyline HCl [Pamelor 10 Mg Capsule] 10 mg PO QHS 06/30/18 Oxycodone HCl [Oxy-Ir 5 mg Tablet] 40 mg PO Q4HP PRN 06/30/18 Allergies/Adverse Reactions: Adhesive Bandage * [Adhesive Bandage] Allergy (Mild, Verified 06/30/18 11:25) Generalized rash adhesive tape [Adhesive Tape] Allergy (Mild, Verified 06/30/18 11:25) Generalized rash Review of Systems Constitutional: PRESENT: fatigue Cardiovascular: PRESENT: chest pain, dyspnea on exertion Gastrointestinal: PRESENT: nausea, vomiting Musculoskeletal: PRESENT: back pain, other - Diffuse pain Neurological: ABSENT: abnormal gait, abnormal speech, confusion, dizziness, focal weakness, syncope Physical Exam Vital Signs: Temp Pulse Resp BP Pulse Ox 97.9 F 106 H 16 111/76 99 07/01/18 03:51 07/01/18 03:51 07/01/18 03:51 07/01/18 03:51 07/01/18 03:51 Intake & Output 06/30/18 07/01/18 07/02/18 06:59 06:59 06:59 Intake Total 400 Balance 400 Weight 73.9 kg General appearance: PRESENT: no acute distress, well-developed, well-nourished Head exam: PRESENT: atraumatic, normocephalic Eye exam: PRESENT: conjunctiva pink, EOMI, PERRLA. ABSENT: scleral icterus Ear exam: PRESENT: normal external ear exam Mouth exam: PRESENT: moist, tongue midline Neck exam: ABSENT: carotid bruit, JVD, lymphadenopathy, thyromegaly Respiratory exam: PRESENT: clear to auscultation jose. ABSENT: rales, rhonchi, wheezes Cardiovascular exam: PRESENT: RRR. ABSENT: diastolic murmur, rubs, systolic murmur Pulses: PRESENT: normal dorsalis pedis pul Vascular exam: PRESENT: normal capillary refill GI/Abdominal exam: PRESENT: normal bowel sounds, soft. ABSENT: distended, guarding, mass, organolmegaly, rebound, tenderness Rectal exam: PRESENT: deferred Extremities exam: PRESENT: full ROM. ABSENT: calf tenderness, clubbing, pedal edema Neurological exam: PRESENT: alert, awake, oriented to person, oriented to place, oriented to time, oriented to situation, CN II-XII grossly intact. ABSENT: motor sensory deficit Psychiatric exam: PRESENT: appropriate affect, normal mood. ABSENT: homicidal ideation, suicidal ideation Skin exam: PRESENT: dry, intact, warm. ABSENT: cyanosis, rash Results Laboratory Results: 07/01/18 07:01 07/01/18 07:01 06/30/18 06/30/18 06/30/18 12:07 12:07 12:07 WBC 5.0 RBC 3.58 L Hgb 12.1 Hct 35.6 L MCV 99 H MCH 33.7 H MCHC 34.0 RDW 17.5 H Plt Count 301 Seg Neutrophils % 62.7 Lymphocytes % 18.8 Monocytes % 15.0 H Eosinophils % 2.6 Basophils % 0.9 Absolute Neutrophils 3.2 Absolute Lymphocytes 0.9 Absolute Monocytes 0.8 Absolute Eosinophils 0.1 Absolute Basophils 0.0 Carbonic Acid HCO3/H2CO3 Ratio ABG pH ABG pCO2 ABG pO2 ABG HCO3 ABG O2 Saturation ABG Base Excess FiO2 Sodium 140.9 Potassium 3.7 Chloride 106 Carbon Dioxide 26 Anion Gap 9 BUN 11 Creatinine 0.89 Est GFR ( Amer) > 60 Est GFR (Non-Af Amer) > 60 Glucose 114 H Calcium 9.2 Total Bilirubin 0.4 AST 23 ALT 22 Alkaline Phosphatase 80 Total Protein 7.1 Albumin 4.0 Serum HCG, Qual NEGATIVE Urine Color Urine Appearance Urine pH Ur Specific [place] Urine Protein Urine Glucose (UA) Urine Ketones Urine Blood Urine Nitrite Ur Leukocyte Esterase Urine WBC (Auto) Urine RBC (Auto) 06/30/18 07/01/18 07/01/18 18:45 02:35 07:01 WBC 6.7 RBC 3.32 L Hgb 11.1 L Hct 33.3 L MCV 100 H MCH 33.5 H MCHC 33.4 RDW 17.2 H Plt Count 280 Seg Neutrophils % 71.4 Lymphocytes % 14.5 Monocytes % 13.2 H Eosinophils % 0.2 Basophils % 0.7 Absolute Neutrophils 4.8 Absolute Lymphocytes 1.0 Absolute Monocytes 0.9 Absolute Eosinophils 0.0 Absolute Basophils 0.0 Carbonic Acid 1.54 H HCO3/H2CO3 Ratio 16:1 ABG pH 7.30 L ABG pCO2 51.1 H ABG pO2 88.5 ABG HCO3 24.8 H ABG O2 Saturation 95.8 ABG Base Excess -2.0 FiO2 30% Sodium Potassium Chloride Carbon Dioxide Anion Gap BUN Creatinine Est GFR ( Amer) Est GFR (Non-Af Amer) Glucose Calcium Total Bilirubin AST ALT Alkaline Phosphatase Total Protein Albumin Serum HCG, Qual Urine Color YELLOW Urine Appearance CLEAR Urine pH 5.0 Ur Specific [place] 1.031 Urine Protein NEGATIVE Urine Glucose (UA) NEGATIVE Urine Ketones NEGATIVE Urine Blood NEGATIVE Urine Nitrite NEGATIVE Ur Leukocyte Esterase NEGATIVE Urine WBC (Auto) 2 Urine RBC (Auto) 0 07/01/18 07:01 WBC RBC Hgb Hct MCV MCH MCHC RDW Plt Count Seg Neutrophils % Lymphocytes % Monocytes % Eosinophils % Basophils % Absolute Neutrophils Absolute Lymphocytes Absolute Monocytes Absolute Eosinophils Absolute Basophils Carbonic Acid HCO3/H2CO3 Ratio ABG pH ABG pCO2 ABG pO2 ABG HCO3 ABG O2 Saturation ABG Base Excess FiO2 Sodium 138.2 Potassium 4.2 Chloride 101 Carbon Dioxide 29 Anion Gap 8 BUN 9 Creatinine 0.70 Est GFR ( Amer) > 60 Est GFR (Non-Af Amer) > 60 Glucose 111 H Calcium 9.2 Total Bilirubin AST ALT Alkaline Phosphatase Total Protein Albumin Serum HCG, Qual Urine Color Urine Appearance Urine pH Ur Specific [place] Urine Protein Urine Glucose (UA) Urine Ketones Urine Blood Urine Nitrite Ur Leukocyte Esterase Urine WBC (Auto) Urine RBC (Auto) 06/30/18 12:07 Creatine Kinase 61 Impressions: Chest X-Ray 06/30/18 12:17 IMPRESSION: Slight interval increase in right-sided pleural effusion and associated atelectasis or consolidation. Chest/Abdomen CTA 06/30/18 17:37 IMPRESSION: No pulmonary emboli. Extensive pleural changes on the right without significant change. Interval development of a moderate pericardial effusion. Status: Image reviewed by me Assessment & Plan - Diagnosis (1) Pericardial effusion Is this a current diagnosis for this admission?: Yes Plan: Probably not contributing but I will get an echocardiogram to make sure there is no RV/LV compromise. (2) Chest wall pain Is this a current diagnosis for this admission?: Yes Plan: She does have diffuse pain, probably more related to the metastasis in the lungs as well as the fibromyalgia. I will take over her pain medication, we will continue Dilaudid, discontinue fentanyl, place her back on her home dose of OxyContin. She will probably need a few days and to control the pain and then we can transition her to home. (3) Metastatic breast cancer Is this a current diagnosis for this admission?: Yes Plan: She will hold on her home Xeloda for now, we will re start this is an outpatient. She would be due for imaging in July but we may delay that now that we have got the CT of the chest done. (4) Fibromyalgia Is this a current diagnosis for this admission?: Yes Plan: I believe this is contributing as well I will start her on IV steroids. This is helped in the past. - Time Time Spent: Greater than 70 Minutes - Inpatient Certification Based on my medical assessment, after consideration of the patient's comorbidities, presenting symptoms, or acuity I expect that the services needed warrant INPATIENT care.: Yes I certify that my determination is in accordance with my understanding of Medicare's requirements for reasonable and necessary INPATIENT services [42 CFR 412.3e].: Yes Medical Necessity: Need for Pain Control, Risk of Complication if Not Cared For in Hospital
[2018-07-01] MEDS: DIPHENHYDRAMINE HCL 50 MG/ML VIAL IV PRN ×2 (08:53→16:55)
[2018-07-01] MEDS: LANSOPRAZOLE 15 MG TAB.RAP.DR PO SCH (09:54)
[2018-07-01] MEDS: DOCUSATE SODIUM 100 MG CAPSULE PO SCH ×2 (09:54→17:06)
[2018-07-01] MEDS: METHYLPREDNISOLONE INJ 40 MG/1 ML SDV IV SCH (09:57)
[2018-07-01] MEDS: LEVOFLOXACIN 750 MG/D5W RTU 750 MG/150 ML RTUPB IV SCH (09:57)
[2018-07-01] MEDS ORDERED: (PENDING PHARMACY ID) (Ondansetron Hcl [Zofran 4 Mg Tablet] 4 MG) PO SCH (10:00)
[2018-07-01] MEDS ORDERED: (PENDING PHARMACY ID) (Linaclotide [Linzess] 145 MCG) PO SCH (10:00)
[2018-07-01] MEDS ORDERED: OXYCODONE HCL SR 40 MG TABLET PO SCH (10:00)
[2018-07-01] MEDS ORDERED: (PENDING PHARMACY ID) (Esomeprazole Magnesium [Nexium 24hr] 20 MG) PO SCH (10:00)
[2018-07-01] MEDS: OXYCODONE HCL SR 10 MG TABLET PO SCH ×2 (10:13→22:47)
[2018-07-01] MEDS ORDERED: PROMETHAZINE HCL INJ 25 MG/1 ML VIAL IV PRN ×2 (12:02→18:00)
--- NOTE | 2018-07-01 13:27 | PDOC PROGRESS REPORT ---
Subjective Progress Note for:: 07/01/18 Subjective:: 07/01/[id number]-qpoo-old female with history of a stage IV breast cancer with metastasis to the chest came to the emergency room with complaints complaints of intractable chest pain. Dr. Ahn saw the patient today. According to his notes recent brain imaging 2 months ago indicate overall complete response to previous whole brain radiation. No acute events in last 24 hours. Patient is in the bed complaining of extreme weakness. Reason For Visit: INTRACTABLE PAIN, TERMINAL BREAST CA W METS Physical Exam Vital Signs: Temp Pulse Resp BP Pulse Ox 97.9 F 100 20 107/84 91 L 07/01/18 08:16 07/01/18 08:16 07/01/18 08:16 07/01/18 08:16 07/01/18 08:16 Intake & Output 06/30/18 07/01/18 07/02/18 06:59 06:59 06:59 Intake Total 400 1150 Balance 400 1150 Weight 73.9 kg General appearance: PRESENT: mild distress Head exam: PRESENT: atraumatic Eye exam: PRESENT: PERRLA Mouth exam: PRESENT: dry mucosa Neck exam: ABSENT: carotid bruit, JVD, lymphadenopathy, thyromegaly Respiratory exam: PRESENT: decreased breath sounds Cardiovascular exam: PRESENT: tachycardia GI/Abdominal exam: PRESENT: normal bowel sounds, soft. ABSENT: distended, guarding, mass, organolmegaly, rebound, tenderness Extremities exam: PRESENT: full ROM. ABSENT: calf tenderness, clubbing, pedal edema Neurological exam: PRESENT: alert, awake, oriented to person, oriented to place, oriented to time, oriented to situation, CN II-XII grossly intact. ABSENT: motor sensory deficit Psychiatric exam: PRESENT: appropriate affect, normal mood. ABSENT: homicidal ideation, suicidal ideation Results Laboratory Results: 07/01/18 07:01 07/01/18 07:01 06/30/18 07/01/18 07/01/18 18:45 02:35 07:01 WBC 6.7 RBC 3.32 L Hgb 11.1 L Hct 33.3 L MCV 100 H MCH 33.5 H MCHC 33.4 RDW 17.2 H Plt Count 280 Seg Neutrophils % 71.4 Lymphocytes % 14.5 Monocytes % 13.2 H Eosinophils % 0.2 Basophils % 0.7 Absolute Neutrophils 4.8 Absolute Lymphocytes 1.0 Absolute Monocytes 0.9 Absolute Eosinophils 0.0 Absolute Basophils 0.0 Carbonic Acid 1.54 H HCO3/H2CO3 Ratio 16:1 ABG pH 7.30 L ABG pCO2 51.1 H ABG pO2 88.5 ABG HCO3 24.8 H ABG O2 Saturation 95.8 ABG Base Excess -2.0 FiO2 30% Sodium Potassium Chloride Carbon Dioxide Anion Gap BUN Creatinine Est GFR ( Amer) Est GFR (Non-Af Amer) Glucose Calcium Urine Color YELLOW Urine Appearance CLEAR Urine pH 5.0 Ur Specific [place] 1.031 Urine Protein NEGATIVE Urine Glucose (UA) NEGATIVE Urine Ketones NEGATIVE Urine Blood NEGATIVE Urine Nitrite NEGATIVE Ur Leukocyte Esterase NEGATIVE Urine WBC (Auto) 2 Urine RBC (Auto) 0 07/01/18 07:01 WBC RBC Hgb Hct MCV MCH MCHC RDW Plt Count Seg Neutrophils % Lymphocytes % Monocytes % Eosinophils % Basophils % Absolute Neutrophils Absolute Lymphocytes Absolute Monocytes Absolute Eosinophils Absolute Basophils Carbonic Acid HCO3/H2CO3 Ratio ABG pH ABG pCO2 ABG pO2 ABG HCO3 ABG O2 Saturation ABG Base Excess FiO2 Sodium 138.2 Potassium 4.2 Chloride 101 Carbon Dioxide 29 Anion Gap 8 BUN 9 Creatinine 0.70 Est GFR ( Amer) > 60 Est GFR (Non-Af Amer) > 60 Glucose 111 H Calcium 9.2 Urine Color Urine Appearance Urine pH Ur Specific [place] Urine Protein Urine Glucose (UA) Urine Ketones Urine Blood Urine Nitrite Ur Leukocyte Esterase Urine WBC (Auto) Urine RBC (Auto) 06/30/18 12:07 Creatine Kinase 61 Impressions: Chest X-Ray 06/30/18 12:17 IMPRESSION: Slight interval increase in right-sided pleural effusion and associated atelectasis or consolidation. Chest/Abdomen CTA 06/30/18 17:37 IMPRESSION: No pulmonary emboli. Extensive pleural changes on the right without significant change. Interval development of a moderate pericardial effusion. Assessment & Plan - Diagnosis (1) Breast cancer metastasized to brain Is this a current diagnosis for this admission?: Yes Plan: 07/01/[id number]-jmet-old female with history of breast cancer metastasis to the brain. The follow-up imaging done 2 months ago indicating complete resolution of the brain metastasis responding well to the whole body radiation. (2) Chest wall pain Is this a current diagnosis for this admission?: Yes Plan: 07/01/2018-patient came in with intractable chest pain. She has breast cancer with metastasis to the chest wall. Patient is on OxyContin 60 mg every 12 hours and also on Dilaudid 2 mg IV every 3hr as needed. Pain is relatively controlled. (3) Pericardial effusion Is this a current diagnosis for this admission?: Yes Plan: 07/01/2018 CT scan shows small pericardial effusion the care is discussed with the Roof Painter, he is impression is pericardial effusion was overestimated by the CAT scan. (4) Bacterial pneumonia Is this a current diagnosis for this admission?: Yes Plan: 07/01/2018 CT chest did not show any evidence of pneumonia, admission WBC is normal, blood pressures are stable, the cultures are negative so far. Patient is not hypoxic. Bacterial pneumonia is very very unlikely. - Time Time Spent with patient: 15-24 minutes Medications reviewed and adjusted accordingly: Yes Anticipated discharge: Hospice
--- NOTE | 2018-07-01 20:26 | XCELERA REPORT ---
[address] [address] Transthoracic Echocardiogram Report Name: EFFIE LOUIS Age: 38 yrs Gender: Female : 1980 Patient Status: Inpatient Patient Location: [address] [place] [address] Study Date: 07/01/2018 02:29 PM Procedure: A two-dimensional transthoracic echocardiogram with color flow and Doppler was performed. Study Quality: Fair. Reason For Study: pencardial effusion History: pencardial effusion. Ordering Physician: MARTINEZ MORATAYA Performed By: Elsa Rodriguez Interpretation Summary The left ventricle is normal in size. There is normal left ventricular wall thickness. LV EF is 65% Left ventricular systolic function is normal. Doppler measurements suggest normal left ventricular diastolic function The left ventricular wall motion is normal. There is no thrombus. The right ventricle is normal in size and function. The right atrium is normal. The left atrial size is normal. There is no aortic valvular vegetation. There is no aortic valve stenosis There is no LVOT obstruction. No aortic regurgitation is present. There is no evidence of mitral valve prolapse. There is no vegetation seen on the mitral valve. There is no mitral valve stenosis. There is no mitral regurgitation noted. There is no tricuspid stenosis. There is a mild amount of tricuspid regurgitation N significant pulmonary hypertension.RVSP is 33 mm of Hg , with RA mean of 10. There is no pulmonic valvular stenosis. There is no pulmonic valvular regurgitation. The aortic root is normal size. Moderate pericardial effusion. There are no echocardiographic or Doppler indications for cardiac tamponade Althuogh IVC not well visualised ,there is a suggestion that it is not dilated and does vary with respiration. MMode/2D Measurements & Calculations RVDd: 2.1 cm LVIDd: 3.2 cm FS: 33.4 % Ao root diam: 2.8 cm IVSd: 1.1 cm LVIDs: 2.1 cm EDV(Teich): 41.9 ml Ao root area: 6.0 cm2 LVPWd: 1.1 cm ESV(Teich): 15.3 ml EF(Teich): 63.5 % IVC Diam_phl: 1.3 cm Doppler Measurements & Calculations MV E max andrea: MV dec slope: Ao V2 max: LV V1 max P.9 cm/sec 302.7 cm/sec2 118.9 cm/sec 3.5 mmHg MV A max andrea: MV dec time: 0.20 secAo max PG: LV V1 max: 56.5 cm/sec 5.7 mmHg 93.7 cm/sec MV E/A: 1.1 PA V2 max: TR max andrea: 60.7 cm/sec 241.2 cm/sec PA max P.5 mmHg TR max P.3 mmHg Left Ventricle The left ventricle is normal in size. There is normal left ventricular wall thickness. LV EF is 65%. Left ventricular systolic function is normal. Doppler measurements suggest normal left ventricular diastolic function. The left ventricular wall motion is normal. There is no thrombus. Right Ventricle The right ventricle is normal in size and function. Atria The right atrium is normal. The left atrial size is normal. Mitral Valve There is no evidence of mitral valve prolapse. There is no vegetation seen on the mitral valve. There is no mitral valve stenosis. There is no mitral regurgitation noted. Aortic Valve There is no aortic valvular vegetation. There is no aortic valve stenosis. There is no LVOT obstruction. No aortic regurgitation is present. Tricuspid Valve There is no tricuspid stenosis. There is a mild amount of tricuspid regurgitation. N significant pulmonary hypertension.RVSP is 33 mm of Hg , with RA mean of 10. Pulmonic Valve There is no pulmonic valvular stenosis. There is no pulmonic valvular regurgitation. Great Vessels The aortic root is normal size. Althuogh IVC not well visualised ,there is a suggestion that it is not dilated and does vary with respiration. Effusions Moderate pericardial effusion. There are no echocardiographic or Doppler indications for cardiac tamponade. : MARTINEZ MORATAYA > Robina Chavez
[2018-07-01] MEDS: ONDANSETRON HCL INJ/PF 4 MG/2 ML SDV IV PRN (21:54)
[2018-07-02] MEDS: HYDROMORPHONE HCL INJ/PF 2 MG/ML AMPULE IV PRN ×5 (03:11→21:45)
[2018-07-02] MEDS: HEPARIN SOD (PORCINE) 5,000 UNIT/ML 1 ML SYRINGE SUBCUT SCH ×3 (05:16→21:36)
--- NOTE | 2018-07-02 08:26 | PDOC PROGRESS REPORT ---
Subjective Progress Note for:: 07/02/18 Subjective:: Patient still had quite a bit of nausea and vomiting over the last 24 hours, still with significant pain. I discussed her case extensively with Dr. Chavez who noted that she does have a moderate pericardial effusion although there is no evidence of cardiac tamponade or ventricular compromise. She has been up out of bed but not out of the room. Reason For Visit: INTRACTABLE PAIN, TERMINAL BREAST CA W METS Physical Exam Vital Signs: Temp Pulse Resp BP Pulse Ox 98.7 F 120 H 18 127/68 H 80 L 07/02/18 04:00 07/02/18 04:02 07/02/18 04:00 07/02/18 04:00 07/02/18 00:00 Intake & Output 07/01/18 07/02/18 07/03/18 06:59 06:59 06:59 Intake Total 400 1600 Balance 400 1600 Weight 73.9 kg 73.9 kg General appearance: PRESENT: no acute distress, well-developed, well-nourished Head exam: PRESENT: atraumatic, normocephalic Eye exam: PRESENT: conjunctiva pink, EOMI, PERRLA. ABSENT: scleral icterus Ear exam: PRESENT: normal external ear exam Mouth exam: PRESENT: moist, tongue midline Neck exam: ABSENT: carotid bruit, JVD, lymphadenopathy, thyromegaly Respiratory exam: PRESENT: clear to auscultation jose. ABSENT: rales, rhonchi, wheezes Cardiovascular exam: PRESENT: RRR. ABSENT: diastolic murmur, rubs, systolic murmur Pulses: PRESENT: normal dorsalis pedis pul Vascular exam: PRESENT: normal capillary refill GI/Abdominal exam: PRESENT: normal bowel sounds, soft. ABSENT: distended, guarding, mass, organolmegaly, rebound, tenderness Rectal exam: PRESENT: deferred Extremities exam: PRESENT: full ROM. ABSENT: calf tenderness, clubbing, pedal edema Neurological exam: PRESENT: alert, awake, oriented to person, oriented to place, oriented to time, oriented to situation, CN II-XII grossly intact. ABSENT: motor sensory deficit Psychiatric exam: PRESENT: appropriate affect, normal mood. ABSENT: homicidal ideation, suicidal ideation Skin exam: PRESENT: dry, intact, warm. ABSENT: cyanosis, rash Results Laboratory Results: 07/01/18 07:01 07/01/18 07:01 06/30/18 12:07 Creatine Kinase 61 Impressions: Chest X-Ray 06/30/18 12:17 IMPRESSION: Slight interval increase in right-sided pleural effusion and associated atelectasis or consolidation. Chest/Abdomen CTA 06/30/18 17:37 IMPRESSION: No pulmonary emboli. Extensive pleural changes on the right without significant change. Interval development of a moderate pericardial effusion. Assessment & Plan - Diagnosis (1) Pericardial effusion Is this a current diagnosis for this admission?: Yes Plan: Not hemodynamically significant as of now, may be related to progression of disease. May be inflammatory in nature. No further intervention for right now. (2) Chest wall pain Is this a current diagnosis for this admission?: Yes Plan: Probably related to her disease process in the lung, continue current pain control. (3) Metastatic breast cancer Is this a current diagnosis for this admission?: Yes Plan: Continue current therapy as an outpatient (4) Fibromyalgia Is this a current diagnosis for this admission?: Yes Plan: Continue steroids for now. - Time Time Spent with patient: 35 or more minutes - Inpatient Certification Based on my medical assessment, after consideration of the patient's comorbidities, presenting symptoms, or acuity I expect that the services needed warrant INPATIENT care.: Yes I certify that my determination is in accordance with my understanding of Medicare's requirements for reasonable and necessary INPATIENT services [42 CFR 412.3e].: Yes Medical Necessity: Need for Pain Control, Risk of Complication if Not Cared For in Hospital
[2018-07-02] MEDS: LEVOFLOXACIN 750 MG/D5W RTU 750 MG/150 ML RTUPB IV SCH (09:33)
[2018-07-02] MEDS: OXYCODONE HCL SR 10 MG TABLET PO SCH ×2 (09:33→21:33)
[2018-07-02] MEDS: METHYLPREDNISOLONE INJ 40 MG/1 ML SDV IV SCH (09:34)
[2018-07-02] MEDS: LANSOPRAZOLE 15 MG TAB.RAP.DR PO SCH (09:34)
[2018-07-02] MEDS: DOCUSATE SODIUM 100 MG CAPSULE PO SCH ×2 (09:34→17:58)
--- NOTE | 2018-07-02 11:19 | PDOC PROGRESS REPORT ---
Subjective Progress Note for:: 07/02/18 Subjective:: 07/01/[id number]-hyiw-old female with history of a stage IV breast cancer with metastasis to the chest came to the emergency room with complaints complaints of intractable chest pain. Dr. Ahn saw the patient today. According to his notes recent brain imaging 2 months ago indicate overall complete response to previous whole brain radiation. No acute events in last 24 hours. Patient is in the bed complaining of extreme weakness. 07/02/2018-No acute events in the last 24 hours. Patient is complaining of chest pain today. She is getting Dilaudid on a scheduled basis. Patient states is lasting a little while and chest pain is coming back. I am planning to arrange for cardiac enzymes x3. Echocardiogram was done yesterday shows EF of 65% normal left ventricular systolic and diastolic function. She does have a moderate pericardial effusion. Dr. Ahn is following the patient along with me. Reason For Visit: INTRACTABLE PAIN, TERMINAL BREAST CA W METS Physical Exam Vital Signs: Temp Pulse Resp BP Pulse Ox 97.1 F 107 H 15 116/95 H 100 07/02/18 07:34 07/02/18 07:34 07/02/18 07:34 07/02/18 07:34 07/02/18 07:34 Intake & Output 07/01/18 07/02/18 07/03/18 06:59 06:59 06:59 Intake Total 400 1600 150 Balance 400 1600 150 Weight 73.9 kg 73.9 kg General appearance: PRESENT: other - Mild to moderate distress Head exam: PRESENT: atraumatic Eye exam: PRESENT: PERRLA Neck exam: ABSENT: carotid bruit, JVD, lymphadenopathy, thyromegaly Respiratory exam: PRESENT: decreased breath sounds Cardiovascular exam: PRESENT: tachycardia, other GI/Abdominal exam: PRESENT: normal bowel sounds, soft. ABSENT: distended, guarding, mass, organolmegaly, rebound, tenderness Extremities exam: PRESENT: full ROM. ABSENT: calf tenderness, clubbing, pedal edema Neurological exam: PRESENT: alert, awake, oriented to person, oriented to place, oriented to time, oriented to situation, CN II-XII grossly intact. ABSENT: motor sensory deficit Psychiatric exam: PRESENT: appropriate affect, normal mood. ABSENT: homicidal ideation, suicidal ideation Results Laboratory Results: 07/01/18 07:01 07/01/18 07:01 06/30/18 12:07 Creatine Kinase 61 Impressions: Chest X-Ray 06/30/18 12:17 IMPRESSION: Slight interval increase in right-sided pleural effusion and associated atelectasis or consolidation. Chest/Abdomen CTA 06/30/18 17:37 IMPRESSION: No pulmonary emboli. Extensive pleural changes on the right without significant change. Interval development of a moderate pericardial effusion. Assessment & Plan - Diagnosis (1) Breast cancer metastasized to brain Is this a current diagnosis for this admission?: Yes Plan: 07/01/[id number]-nhqh-old female with history of breast cancer metastasis to the brain. The follow-up imaging done 2 months ago indicating complete resolution of the brain metastasis responding well to the whole body radiation. 07/02/2018-patient has history of breast cancer with metastases to the brain with complete resolution of the brain metastasis with whole body radiation. Dr. Ahn is following the patient. (2) Chest wall pain Is this a current diagnosis for this admission?: Yes Plan: 07/01/2018-patient came in with intractable chest pain. She has breast cancer with metastasis to the chest wall. Patient is on OxyContin 60 mg every 12 hours and also on Dilaudid 2 mg IV every 3hr as needed. Pain is relatively controlled. 07/02/2018-patient is still complaining of chest pain she is getting Dilaudid and OxyContin 60 mg every 12 hours. Going to check the cardiac enzymes x3. His chest pain is secondary to breast cancer with metastasis to the chest wall. (3) Pericardial effusion Is this a current diagnosis for this admission?: Yes Plan: 07/01/2018 CT scan shows small pericardial effusion the care is discussed with the Supervisor [employer], he is impression is pericardial effusion was overestimated by the CAT scan. 07/02/2018 patient does have moderate amount of pericardial effusion. Cardiology consult was done. Echocardiogram shows EF more than 65% and normal left ventricular systolic and diastolic function. (4) Bacterial pneumonia Is this a current diagnosis for this admission?: Yes Plan: 07/01/2018 CT chest did not show any evidence of pneumonia, admission WBC is normal, blood pressures are stable, the cultures are negative so far. Patient is not hypoxic. Bacterial pneumonia is very very unlikely. [id number] was getting treatment for persumed pneumonia. WBC count is 6900, patient is afebrile. Cultures are negative. Patient is on levofloxacin 750 mg IV daily. Plan is to discontinue the antibiotics. (5) Fibromyalgia Is this a current diagnosis for this admission?: Yes Plan: 07/02/2018-patient has history of fibromyalgia. She was on IV steroids. Plan to continue the medication as per oncology recommendations. - Time Time Spent with patient: 15-24 minutes Anticipated discharge: Home
[2018-07-02 12:18] LABS: CREATINE KINASE MB 0.68 ng/mL (<4.55)
[2018-07-02 12:19] LABS: TROPONIN I < 0.012 ng/mL
[2018-07-02] MEDS ORDERED: MAG HYDROX/AL HYDROX/SIMETH SUSP 30 ML UDCUP PO ONE (19:46)
[2018-07-02] MEDS ORDERED: LIDOCAINE 2% VISCOUS SOLN 20 ML UDCUP PO ONE (19:46)
[2018-07-02] MEDS ORDERED: METOCLOPRAMIDE HCL ORAL SOLN 10 MG/10 ML UDCUP PO ONE (19:46)
[2018-07-02 20:02] LABS: CREATINE KINASE MB 0.77 ng/mL (<4.55)
[2018-07-02 20:07] LABS: TROPONIN I < 0.012 ng/mL
[2018-07-02] MEDS: ONDANSETRON HCL INJ/PF 4 MG/2 ML SDV IV PRN (20:09)
[2018-07-02] MEDS: NORTRIPTYLINE HCL 10 MG CAPSULE PO SCH (21:35)
[2018-07-03] MEDS: HYDROMORPHONE HCL INJ/PF 2 MG/ML AMPULE IV PRN (03:01)
[2018-07-03 03:58] LABS: ABSOLUTE BASOPHILS # (AUTO) 0.1 10^3/uL (0.0-0.2); ABSOLUTE LYMPHOCYTES (AUTO) 1.7 10^3/uL (0.5-4.7); ABSOLUTE MONOCYTES (AUTO) 1.3 10^3/uL (0.1-1.4); ABSOLUTE NEUT (AUTO) 6.2 10^3/uL (1.7-8.2); BASOPHILS % (AUTO) 0.6 % (0-2); EOSINOPHILS % (AUTO) 0.3 % (0-6); HEMATOCRIT 32.8 % (36.0-47.0); HEMOGLOBIN 11.2 g/dL (12.0-15.5); LYMPHOCYTES % (AUTO) 17.9 % (13-45); MEAN CORPUSCULAR HEMOGLOBIN 33.8 pg (27.0-33.4); MEAN CORPUSCULAR HGB CONC 34.2 g/dL (32.0-36.0); MEAN CORPUSCULAR VOLUME 99 fl (80-97); MONOCYTES % (AUTO) 14.3 % (3-13); PLATELET COUNT 161 10^3/uL (150-450); RED BLOOD COUNT 3.32 10^6/uL (3.72-5.28); RED CELL DISTRIBUTION WIDTH 16.7 % (11.5-14.0); SEGMENTED NEUTROPHILS % (AUTO) 66.9 % (42-78); TOTAL CELLS COUNTED % (AUTO) 100 %; WHITE BLOOD COUNT 9.2 10^3/uL (4.0-10.5)
[2018-07-03 04:15] LABS: ALANINE AMINOTRANSFERASE 47 U/L (9-52); ALBUMIN 4.3 g/dL (3.5-5.0); ALKALINE PHOSPHATASE 106 U/L (38-126); ANION GAP 9 (5-19); ASPARTATE AMINO TRANSFERASE 51 U/L (14-36); BILIRUBIN,DIRECT 0.3 mg/dL (0.0-0.4); BILIRUBIN,TOTAL 0.5 mg/dL (0.2-1.3); BLOOD UREA NITROGEN 13 mg/dL (7-20); CALCIUM 9.1 mg/dL (8.4-10.2); CARBON DIOXIDE 32 mmol/L (22-30); CHLORIDE 93 mmol/L (98-107); GLUCOSE 91 mg/dL (75-110); POTASSIUM 4.6 mmol/L (3.6-5.0); SODIUM 133.8 mmol/L (137-145); TOTAL PROTEIN 7.4 g/dL (6.3-8.2)
[2018-07-03 04:23] LABS: CREATINE KINASE MB 0.85 ng/mL (<4.55)
[2018-07-03 04:33] LABS: TROPONIN I < 0.012 ng/mL
[2018-07-03] MEDS: HEPARIN SOD (PORCINE) 5,000 UNIT/ML 1 ML SYRINGE SUBCUT SCH (05:26)
[2018-07-03] MEDS: DIPHENHYDRAMINE HCL 50 MG/ML VIAL IV PRN (08:21)
--- NOTE | 2018-07-03 08:43 | PDOC PROGRESS REPORT ---
Subjective Progress Note for:: 07/03/18 Subjective:: Pain better, feels ready to go home, she will supervisor opening and picking pain rx from us today, will need medrol dose hernandez on d/c Reason For Visit: INTRACTABLE PAIN, TERMINAL BREAST CA W METS Physical Exam Vital Signs: Temp Pulse Resp BP Pulse Ox 97.7 F 83 18 111/74 96 07/03/18 07:44 07/03/18 07:44 07/03/18 07:44 07/03/18 07:44 07/03/18 07:44 Intake & Output 07/02/18 07/03/18 07/04/18 06:59 06:59 06:59 Intake Total 1600 930 Balance 1600 930 Weight 73.9 kg 72.3 kg General appearance: PRESENT: no acute distress, well-developed, well-nourished Head exam: PRESENT: atraumatic, normocephalic Eye exam: PRESENT: conjunctiva pink, EOMI, PERRLA. ABSENT: scleral icterus Ear exam: PRESENT: normal external ear exam Mouth exam: PRESENT: moist, tongue midline Neck exam: ABSENT: carotid bruit, JVD, lymphadenopathy, thyromegaly Respiratory exam: PRESENT: clear to auscultation jose. ABSENT: rales, rhonchi, wheezes Cardiovascular exam: PRESENT: RRR. ABSENT: diastolic murmur, rubs, systolic murmur Pulses: PRESENT: normal dorsalis pedis pul Vascular exam: PRESENT: normal capillary refill GI/Abdominal exam: PRESENT: normal bowel sounds, soft. ABSENT: distended, guarding, mass, organolmegaly, rebound, tenderness Rectal exam: PRESENT: deferred Extremities exam: PRESENT: full ROM. ABSENT: calf tenderness, clubbing, pedal edema Neurological exam: PRESENT: alert, awake, oriented to person, oriented to place, oriented to time, oriented to situation, CN II-XII grossly intact. ABSENT: motor sensory deficit Psychiatric exam: PRESENT: appropriate affect, normal mood. ABSENT: homicidal ideation, suicidal ideation Skin exam: PRESENT: dry, intact, warm. ABSENT: cyanosis, rash Results Laboratory Results: 07/03/18 03:37 07/03/18 03:37 07/03/18 07/03/18 03:37 03:37 WBC 9.2 RBC 3.32 L Hgb 11.2 L Hct 32.8 L MCV 99 H MCH 33.8 H MCHC 34.2 RDW 16.7 H Plt Count 161 Seg Neutrophils % 66.9 Lymphocytes % 17.9 Monocytes % 14.3 H Eosinophils % 0.3 Basophils % 0.6 Absolute Neutrophils 6.2 Absolute Lymphocytes 1.7 Absolute Monocytes 1.3 Absolute Eosinophils 0.0 Absolute Basophils 0.1 Sodium 133.8 L Potassium 4.6 Chloride 93 L Carbon Dioxide 32 H Anion Gap 9 BUN 13 Creatinine 0.70 Est GFR ( Amer) > 60 Est GFR (Non-Af Amer) > 60 Glucose 91 Calcium 9.1 Magnesium 1.9 Total Bilirubin 0.5 AST 51 H ALT 47 Alkaline Phosphatase 106 Total Protein 7.4 Albumin 4.3 06/30/18 07/02/18 07/02/18 12:07 11:25 11:25 Creatine Kinase 61 113 CK-MB (CK-2) 0.68 Troponin I < 0.012 07/02/18 07/02/18 07/03/18 19:25 19:25 03:37 Creatine Kinase 103 94 CK-MB (CK-2) 0.77 Troponin I < 0.012 07/03/18 03:37 Creatine Kinase CK-MB (CK-2) 0.85 Troponin I < 0.012 Impressions: Chest X-Ray 06/30/18 12:17 IMPRESSION: Slight interval increase in right-sided pleural effusion and associated atelectasis or consolidation. Chest/Abdomen CTA 06/30/18 17:37 IMPRESSION: No pulmonary emboli. Extensive pleural changes on the right without significant change. Interval development of a moderate pericardial effusion. Assessment & Plan - Diagnosis (1) Pericardial effusion Is this a current diagnosis for this admission?: Yes Plan: Stable, will follow as outpt (2) Chest wall pain Is this a current diagnosis for this admission?: Yes Plan: Likely 2nd to breast ca mets, cont outpt care (3) Metastatic breast cancer Is this a current diagnosis for this admission?: Yes Plan: further f/u as outpt (4) Fibromyalgia Is this a current diagnosis for this admission?: Yes Plan: medrol dose hernandez on d/c
[2018-07-03 09:44] VITALS: BP 134/88
--- NOTE | 2018-07-03 11:16 | PDOC DISCHARGE SUMMARY ---
General - Admit/Disc Date/PCP Admission Date/Primary Care Provider: 06/30/18 20:00 MARTINEZ MORATAYA MD Discharge Date: 07/03/18 - Discharge Diagnosis (1) Breast cancer metastasized to brain Is this a current diagnosis for this admission?: Yes Summary: 07/01/[id number]-fdzo-old female with history of breast cancer metastasis to the brain. The follow-up imaging done 2 months ago indicating complete resolution of the brain metastasis responding well to the whole body radiation. 07/03/[id number]-vziv-old female with history of breast cancer metastasis to the brain she has whole body radiation was done and follow-up workup indicates complete resolution of the brain metastasis. She came in with chest pains and the impression is carcinoma with metastasis to the chest wall. Patient is going to follow-up with Dr. Morataya as an outpatient. (2) Chest wall pain Is this a current diagnosis for this admission?: Yes Summary: 07/01/2018-patient came in with intractable chest pain. She has breast cancer with metastasis to the chest wall. Patient is on OxyContin 60 mg every 12 hours and also on Dilaudid 2 mg IV every 3hr as needed. Pain is relatively controlled. 07/02/2018-patient is still complaining of chest pain she is getting Dilaudid and OxyContin 60 mg every 12 hours. Going to check the cardiac enzymes x3. His chest pain is secondary to breast cancer with metastasis to the chest wall. 07/03/2018-patient has history of breast cancer possible metastasis to the chest wall. Patient is on OxyContin 60 mg every 12 hours and also on Dilaudid 2 mg IV every 3 hours as needed. Patient chest pain is much better today. Dr. Morataya saw the patient today his recommendation is to discharge the pt home today. He wrote the prescriptions for narcotics. (3) Pericardial effusion Is this a current diagnosis for this admission?: Yes Summary: 07/01/2018 CT scan shows small pericardial effusion the care is discussed with the Kineseologist, he is impression is pericardial effusion was overestimated by the CAT scan. 07/02/2018 patient does have moderate amount of pericardial effusion. Cardiology consult was done. Echocardiogram shows EF more than 65% and normal left ventricular systolic and diastolic function. 07/03/2018-the echocardiogram shows moderate pericardial effusion. Echocardiogram indicates EF of more than 65% with normal left ventricular systolic and diastolic function. This pericardial effusion may be secondary to the breast cancer. (4) Bacterial pneumonia Is this a current diagnosis for this admission?: Yes Summary: 07/01/2018 CT chest did not show any evidence of pneumonia, admission WBC is normal, blood pressures are stable, the cultures are negative so far. Patient is not hypoxic. Bacterial pneumonia is very very unlikely. 07/02/2018-patient was getting treatment for persumed pneumonia. WBC count is 6900, patient is afebrile. Cultures are negative. Patient is on levofloxacin 750 mg IV daily. Plan is to discontinue the antibiotics. 07/03/2018-initial x-rays suggest possible pneumonia. But she patient had never had a increased white cell count or fever. Cultures are negative. Patient was on levofloxacin 750 mg IV daily. levofloxacin was discontinued yesterday. Patient is afebrile. Patient is going home without any antibiotics. (5) Fibromyalgia Is this a current diagnosis for this admission?: Yes Summary: 07/02/2018-patient has history of fibromyalgia. She was on IV steroids. Plan to continue the medication as per oncology recommendations. 07/03/2018 patient has history of fibromyalgia she was on IV steroids here in this hospital as per Dr. Morataya's recommendations I gave a prescription for Medrol Dosepak to go home. - Additional Information Resuscitation Status: Do Not Intubate Discharge Diet: Cardiac Discharge Activity: Activity As Tolerated Prescriptions: Methylprednisolone [Medrol Dosepack (4 mg/Tab) 21 Tab/Dosepak] 21 tab PO TID #1 dspk Home Medications: Esomeprazole Magnesium [Nexium] 20 mg PO DAILY 06/30/18 Nortriptyline HCl [Pamelor 10 mg Capsule] 10 mg PO QHS 06/30/18 Oxycodone HCl [Oxy-Ir 5 mg Tablet] 40 mg PO Q4HP PRN 06/30/18 Methylprednisolone [Medrol Dosepack (4 mg/Tab) 21 Tab/Dosepak] 21 tab PO TID #1 dspk 07/03/18 History of Present Illness History of Present Illness: EFFIE LOUIS is a 38 year old female with a past medical history of stage IV breast cancer with metastasis to brain, stomach and recurrent malignant pleural effusion. she presents with 12 hours of intractable diffuse pain not amenable to outpatient regiment. She denies recent change or running out of medications at home. In the emergency room she complains of shortness of breath and is tachypneic admitting low-grade fevers. She receives IV Dilaudid and referred to the hospitalist for admission. Patient is awake and alert though writhing in pain reiterating her CODE STATUS is DO NOT INTUBATE. CT reveals extensive pleural changes and a small pericardial effusion. She has no JVD or pulses paradoxus. Physical Exam Vital Signs: Temp Pulse Resp BP Pulse Ox 97.7 F 83 18 134/88 H 96 07/03/18 09:40 07/03/18 09:40 07/03/18 09:40 07/03/18 09:40 07/03/18 09:40 Intake & Output 07/02/18 07/03/18 07/04/18 06:59 06:59 06:59 Intake Total 1600 930 Balance 1600 930 Weight 73.9 kg 72.3 kg General appearance: PRESENT: no acute distress Head exam: PRESENT: atraumatic Eye exam: PRESENT: PERRLA Mouth exam: PRESENT: moist Neck exam: ABSENT: carotid bruit, JVD, lymphadenopathy, thyromegaly Respiratory exam: PRESENT: decreased breath sounds Cardiovascular exam: PRESENT: tachycardia GI/Abdominal exam: PRESENT: normal bowel sounds, soft. ABSENT: distended, guarding, mass, organolmegaly, rebound, tenderness Extremities exam: PRESENT: full ROM. ABSENT: calf tenderness, clubbing, pedal edema Neurological exam: PRESENT: alert, awake, oriented to person, oriented to place, oriented to time, oriented to situation, CN II-XII grossly intact. ABSENT: motor sensory deficit Psychiatric exam: PRESENT: appropriate affect, normal mood. ABSENT: homicidal ideation, suicidal ideation Results Laboratory Results: 07/03/18 03:37 07/03/18 03:37 07/03/18 07/03/18 03:37 03:37 WBC 9.2 RBC 3.32 L Hgb 11.2 L Hct 32.8 L MCV 99 H MCH 33.8 H MCHC 34.2 RDW 16.7 H Plt Count 161 Seg Neutrophils % 66.9 Lymphocytes % 17.9 Monocytes % 14.3 H Eosinophils % 0.3 Basophils % 0.6 Absolute Neutrophils 6.2 Absolute Lymphocytes 1.7 Absolute Monocytes 1.3 Absolute Eosinophils 0.0 Absolute Basophils 0.1 Sodium 133.8 L Potassium 4.6 Chloride 93 L Carbon Dioxide 32 H Anion Gap 9 BUN 13 Creatinine 0.70 Est GFR ( Amer) > 60 Est GFR (Non-Af Amer) > 60 Glucose 91 Calcium 9.1 Magnesium 1.9 Total Bilirubin 0.5 AST 51 H ALT 47 Alkaline Phosphatase 106 Total Protein 7.4 Albumin 4.3 06/30/18 07/02/18 07/02/18 12:07 11:25 11:25 Creatine Kinase 61 113 CK-MB (CK-2) 0.68 Troponin I < 0.012 07/02/18 07/02/18 07/03/18 19:25 19:25 03:37 Creatine Kinase 103 94 CK-MB (CK-2) 0.77 Troponin I < 0.012 07/03/18 03:37 Creatine Kinase CK-MB (CK-2) 0.85 Troponin I < 0.012 Impressions: Chest X-Ray 06/30/18 12:17 IMPRESSION: Slight interval increase in right-sided pleural effusion and associated atelectasis or consolidation. Chest/Abdomen CTA 06/30/18 17:37 IMPRESSION: No pulmonary emboli. Extensive pleural changes on the right without significant change. Interval development of a moderate pericardial effusion. Qualifiers - * PATIENT BEING DISCHARGED WITH ANY OF THE FOLLOWING DIAGNOSIS: No VTE patient discharged on overlapping Therapy?: No
== END 2018-07-03 10:03 | disposition home or self-care (01) | DRG 843 ==
LOC: ER 11:23 → EH 20:00 → 3W 07-01 01:06
PROVIDERS: ADMIT Internal Medicine; ATTEND Internal Medicine
DX: C79.89 Secondary malignant neoplasm of other specified sites (principal); J15.9 Unspecified bacterial pneumonia; J91.0 Malignant pleural effusion; Z66 Do not resuscitate; C78.89 Secondary malignant neoplasm of other digestive organs; C79.31 Secondary malignant neoplasm of brain; C50.912 Malignant neoplasm of unspecified site of left female breast; K21.9 Gastro-esophageal reflux disease without esophagitis; M79.7 Fibromyalgia; R11.10 Vomiting, unspecified; Z85.3 Personal history of malignant neoplasm of breast
CPT/HCPCS: 36415; 36600; 71046; 71275; 80048; 80053; 81001; 82550; 82553; 82803; 83735; 84484; 84703; 85025; 87040; 93306; 94660; 96374; 96375; 96376; 99285; J1170; J1200; J1644; J1885; J1956; J2270; J2310; J2405; J2550; J2920; J3490; J7030; J7620

== ENCOUNTER 2018-07-05 03:05 | Inpatient (IN) | payer MEDICAID ==
[2018-07-05] MEDS ORDERED: HYDROMORPHONE HCL INJ/PF 2 MG/ML AMPULE IV ONE ×2 (03:20→04:35)
[2018-07-05] MEDS ORDERED: ALBUTEROL SULFATE 0.083% NEB 2.5 MG/3 ML AMPUL NEB ONE (03:45)
[2018-07-05 03:55] LABS: ABSOLUTE BASOPHILS # (AUTO) 0.1 10^3/uL (0.0-0.2); ABSOLUTE LYMPHOCYTES (AUTO) 1.5 10^3/uL (0.5-4.7); ABSOLUTE MONOCYTES (AUTO) 0.9 10^3/uL (0.1-1.4); ABSOLUTE NEUT (AUTO) 6.4 10^3/uL (1.7-8.2); BASOPHILS % (AUTO) 1.3 % (0-2); EOSINOPHILS % (AUTO) 0.4 % (0-6); HEMATOCRIT 35.3 % (36.0-47.0); HEMOGLOBIN 11.8 g/dL (12.0-15.5); LYMPHOCYTES % (AUTO) 16.5 % (13-45); MEAN CORPUSCULAR HEMOGLOBIN 33.3 pg (27.0-33.4); MEAN CORPUSCULAR HGB CONC 33.3 g/dL (32.0-36.0); MEAN CORPUSCULAR VOLUME 100 fl (80-97); MONOCYTES % (AUTO) 10.3 % (3-13); RED BLOOD COUNT 3.54 10^6/uL (3.72-5.28); SEGMENTED NEUTROPHILS % (AUTO) 71.5 % (42-78); TOTAL CELLS COUNTED % (AUTO) 100 %; WHITE BLOOD COUNT 8.9 10^3/uL (4.0-10.5)
[2018-07-05 04:00] LABS: ALANINE AMINOTRANSFERASE 90 U/L (9-52); ALKALINE PHOSPHATASE 200 U/L (38-126); ASPARTATE AMINO TRANSFERASE 100 U/L (14-36); BILIRUBIN,DIRECT 0.4 mg/dL (0.0-0.4); BILIRUBIN,TOTAL 0.8 mg/dL (0.2-1.3); BLOOD UREA NITROGEN 15 mg/dL (7-20); CALCIUM 8.9 mg/dL (8.4-10.2); CHLORIDE 98 mmol/L (98-107); GLUCOSE 121 mg/dL (75-110); SODIUM 139.4 mmol/L (137-145); TOTAL PROTEIN 7.2 g/dL (6.3-8.2)
[2018-07-05 04:09] LABS: ANION GAP 5 (5-19); CARBON DIOXIDE 36 mmol/L (22-30)
--- NOTE | 2018-07-05 04:27 | RADIOLOGY REPORT (SQ) ---
EXAM DESCRIPTION: CT CHEST ANGIOGRAPHY WITHOUT THEN WITH IV CONTRAST, CT ABDOMEN PELVIS WITH IV CONTRAST COMPLETED DATE/TME: 07/05/2018 03:21 CLINICAL HISTORY: 38 years, Female, chest abdominal pain, hx: of Stage 4 breast CA COMPARISON: CTA chest 02/17/2018 TECHNIQUE: [id number] Images stored on PACS. All CT scanners at this facility use dose modulation, iterative reconstruction, and/or weight based dosing when appropriate to reduce radiation dose to as low as reasonably achievable (ALARA). Axial CTA images were obtained with coronal and sagittal MIPS reconstructions. [facility]: Dose Right [facility]: CareDose [facility]: Dose Right [facility]: Teradose 4D [facility]: Smart VisitorsCafe LIMITATIONS: None. FINDINGS: CTA chest: The mediastinal vasculature enhances normally. No intraluminal filling defect to suggest pulmonary embolus. Negative for thoracic aortic aneurysm or dissection. Moderate sized pericardial effusion. Small bilateral pleural effusions. Right breast prosthesis. Osseous structures are grossly intact. Prominent interstitial changes for which lymphangitic spread of disease is not excluded. No discrete pneumothorax. Rather extensive airspace opacities bilaterally, which may reflect pneumonia. In addition, thick-walled pleural-based fluid collection in the lateral right lung base, concerning for empyema or loculated pleural effusion. CT abdomen/pelvis: The visualized liver, spleen, adrenal glands are unremarkable. The kidneys are unremarkable. Osseous structures are grossly intact. No free air. Small amount of ascites. No gross evidence for bowel obstruction. Abundant stool in the colon. Normal appendix. Status post cholecystectomy. The pancreas is not well seen. IMPRESSION: Negative for pulmonary embolus, thoracic aortic aneurysm, or dissection. Small bilateral pleural effusions with a loculated thick walled pleural fluid collection along the lateral right lung base, similar to the prior exam. Adjacent pleural thickening. Pleural-based metastatic disease is not excluded. Extensive airspace opacities bilaterally which may reflect pneumonia. Prominent interstitial changes are noted for which lymphangitic spread of disease is not excluded. Moderate to large pericardial effusion. Small volume of ascites. TECHNICAL DOCUMENTATION: Quality ID # [id number]: Final reports with documentation of one or more dose reduction techniques (e.g., Automated exposure control, adjustment of the mA and/or kV according to patient size, use of iterative reconstruction technique) copyright 2010 [employer]- All Rights Reserved
[2018-07-05] MEDS ORDERED: INSULIN REG, HUMAN 100 UNIT/ML 3 ML VIAL (PYX) SUBCUT ONE (04:55)
[2018-07-05] MEDS ORDERED: VANCOMYCIN HCL INJ 1000 MG VIAL IV ONE (04:55)
[2018-07-05] MEDS ORDERED: CEFTRIAXONE INJ 1000 MG VIAL IV ONE (04:55)
[2018-07-05 04:57] LABS: PLATELET COUNT 330 10^3/uL (150-450)
--- NOTE | 2018-07-05 05:41 | ER Document Report ---
ED General - General Chief Complaint: Shortness Of Breath Stated Complaint: DIFFICULTY BREATHING Time Seen by Provider: 07/05/18 03:12 Primary Care Provider: MARTINEZ AHN MD [Primary Care Provider] - Follow up as needed Notes: Patient is a 38-year-old female presents with complaint of difficulty breathing. She had a rise for embolus. She was just discharged from the hospital approximately 36 hours ago. She was admitted due to intractable pain difficulty breathing from her metastatic breast cancer. At that time she was found to have pericardial effusion, pleural effusion, and she already has known metastases throughout her body. She is treated for pain. It was determined that the effusions and opacities were unlikely to be pneumonia more related to her malignancy. She is eventually discharged home. She says since going home her pain does continue to worsen tonight she became very short of breath and therefore called the ambulance. She says usually wears 2 L of oxygen via nasal cannula at home but increase it to 3 and the paramedics ended up giving her breathing treatments and Solu-Medrol. TRAVEL OUTSIDE OF THE [place] IN LAST 30 DAYS: No - Related Data Allergies/Adverse Reactions: Adhesive Bandage * [Adhesive Bandage] Allergy (Mild, Verified 06/30/18 11:25) Generalized rash adhesive tape [Adhesive Tape] Allergy (Mild, Verified 06/30/18 11:25) Generalized rash Past Medical History - Social History Smoking Status: Never Smoker Frequency of alcohol use: None Drug Abuse: None Family History: DM, Other - Started to review with patient though - Past Medical History Cardiac Medical History: Denies: Hx Coronary Artery Disease, Hx Heart Attack, Hx Hypertension Pulmonary Medical History: Reports: Hx Asthma - TEENAGER, Hx Pneumonia - recently d/c'd 05/10/17, Hx Respiratory Failure Denies: Hx Bronchitis, Hx COPD, Hx Tuberculosis Neurological Medical History: Reports: Hx Migraine, Hx Seizures. Denies: Hx Cerebrovascular Accident Endocrine Medical History: Denies: Hx Diabetes Mellitus Type 1, Hx Diabetes Mellitus Type 2 Renal/ Medical History: Denies: Hx Peritoneal Dialysis Malignancy Medical History: Reports: Hx Brain Cancer, Hx Breast Cancer - right mastectomy. With metastases to brain and lungs and pleural fluid, Hx Lung Cancer GI Medical History: Reports: Hx Gastroesophageal Reflux Disease. Denies: Hx Hiatal Hernia Musculoskeletal Medical History: Denies Hx Arthritis, Reports Hx Fibromyalgia Skin Medical History: Denies Hx Eczema Psychiatric Medical History: Denies: Hx Depression Infectious Medical History: Past Surgical History: Reports: Hx Breast Surgery - R mastectomy/lumpectomy, Hx Section - x2, Hx Cholecystectomy, Hx Mastectomy - Right right mastectomy with axillary node dissection, Hx Orthopedic Surgery, Hx Tonsillectomy, Hx Tubal Ligation, Hx Vascular Surgery - Left chest wall port - Immunizations Hx Diphtheria, Pertussis, Tetanus Vaccination: Yes Hx Pneumococcal Vaccination: 04/30/13 Review of Systems - Review of Systems Notes: My Normal Review Basic REVIEW OF SYSTEMS: CONSTITUTIONAL : Chills. EENT: Denies eye, ear, throat, or mouth pain or symptoms. Denies nasal or sinus congestion. CARDIOVASCULAR: Denies chest pain. RESPIRATORY: Difficulty breathing GASTROINTESTINAL: Diffuse abdominal pain. Some nausea. No vomiting. GENITOURINARY: Denies difficulty urinating, painful urination, burning, frequency, or blood in urine. MUSCULOSKELETAL: Body aches. SKIN: Denies rash or skin lesions. NEUROLOGICAL: Denies altered mental status or loss of consciousness. Denies headache. Denies weakness or paralysis or loss of use of either side. Denies problems with gait or speech. Denies sensory or motor loss. ALL OTHER SYSTEMS REVIEWED AND NEGATIVE. Physical Exam - Vital signs Vitals: Temp 97.5 F 07/05/18 03:17 - Notes Notes: General Appearance: Well nourished, alert, cooperative, moderate acute distress, moderate obvious discomfort. Vitals: reviewed, See vital signs table. Head: no swelling or tenderness to the head Eyes: PERRL, EOMI, Conjuctiva clear Mouth: No decreasd moisture Throat: No tonsillar inflammation, No airway obstruction, No lymphadenopathy Neck: Supple, no neck tenderness, No thyromegaly Lungs: No wheezing, No rales, scattered rhonchorous breath sounds., Some accessory muscle use, good air exchange bilaterally. Heart: Tachycardiac rate, Regular rythm, No murmur, no rub Abdomen: Normal BS, soft, No rigidity, No abdominal tenderness, No guarding, no rebound, no abdominal masses, no organomegaly Extremities: strength 5/5 in all extremities, good pulses in all extremities, no swelling or tenderness in the extremities, no edema. Skin: warm, dry, appropriate color, no rash Neuro: speech clear, oriented x 3, normal affect, responds appropriately to questions. Course - Re-evaluation Re-evalutation: 07/05/18 05:36 I discussed the case with Dr. Reveles who is covering for Dr. Ahn. She is familiar with Ms. Sanabria's care. I explained her that she has some worsening we will try to process however the pericardial and pulmonary effusions are the same size. She is requiring increased oxygen and as well as having increasing pain. She agrees to have the patient admitted and she was says the patient today. I did speak with Dr. Blank, hospitalist, who agrees to evaluate the patient for admission. Soon is I go through with Dr. Blank the nurse can grimace that the patient was started confused and having increasing difficulty breathing. Patient's friend is now bedside. Is able get the patient to calm down as she seemed very anxious and agitated. Once I got her calmed down her heart rate decreased back down to the low 100s. Oxygen is remained stable. I will placed on BiPAP as I think the positive pressure will help with the effusions and the lungs are probably make her feel as if she is get more oxygen make her feel improved. Also talked her again and redressed her DNR and DO NOT INTUBATE. I redressed the 6 the patient said that she did not want to because of her kids. Patient previously was a DO NOT INTUBATE. She says now if she requires intubation she would prefer everything be done and to be placed on a ventilator. I did speak with the patient's friend at bedside who says that the only family that she knows of in the area are her 2 kids. Dictation of this chart was performed using voice recognition software; therefore, there may be some unintended grammatical errors. 07/05/18 05:43 - Vital Signs Vital signs: Temp Pulse Resp BP Pulse Ox 97.5 F 07/05/18 03:17 - Laboratory Result Diagrams: 07/05/18 03:42 07/05/18 03:42 Laboratory results interpreted by me: 07/05/18 07/05/18 03:42 03:42 RBC 3.54 L Hgb 11.8 L Hct 35.3 L MCV 100 H RDW 17.0 H Carbon Dioxide 36 H Glucose 121 H AST 100 H ALT 90 H Alkaline Phosphatase 200 H Discharge - Discharge Clinical Impression: Metastatic breast cancer, Pleural effusion, Intractable pain, Pericardial effusion Condition: Stable Disposition: ADMITTED INPATIENT Admitting Provider: Hospitalist Unit Admitted: IMCU Referrals: MARTINEZ AHN MD [Primary Care Provider] - Follow up as needed
[2018-07-05] MEDS ORDERED: MEROPENEM 1 GM in NORMAL SALINE 50 ML IV SCH (06:00)
[2018-07-05] MEDS ORDERED: ONDANSETRON 4 MG TAB.RAPDIS PO PRN (06:20)
[2018-07-05] MEDS ORDERED: MAGNESIUM HYDROXIDE SUSP 30 ML UDCUP PO PRN (06:20)
[2018-07-05] MEDS ORDERED: NORMAL SALINE 1000 ML 1,000 ML IV PRN (06:20)
[2018-07-05] MEDS ORDERED: ALBUTEROL SULFATE 0.083% NEB 2.5 MG/3 ML AMPUL NEB PRN (06:25)
[2018-07-05] MEDS ORDERED: ACETAMINOPHEN 325 MG TABLET PO PRN (06:25)
[2018-07-05] MEDS ORDERED: ACETAMINOPHEN 650 MG SUPP.RECT PR PRN (06:25)
[2018-07-05] MEDS ORDERED: MEROPENEM 1 GM VIAL IV PRN (06:30)
[2018-07-05] MEDS: MORPHINE SULFATE 10 MG/ML INJ IV PRN ×5 (07:04→20:56)
[2018-07-05] MEDS: AZITHROMYCIN INJ 500 MG VIAL IV ONE ×2 (07:05→07:57)
--- NOTE | 2018-07-05 08:12 | PDOC H&P ---
History of Present Illness Admission Date/PCP: 07/05/18 05:51 MARTINEZ MORATAYA MD Patient complains of: Increasing dyspnea and intractable diffuse pain History of Present Illness: EFFIE LOUIS is a 38 year old female with a 6-hour history of dyspnea. She admits that she was just discharged from the hospital on 07/03/2018 where she had been admitted for dyspnea related to her metastatic breast cancer also accompanied by intractable pain. Her current symptoms are very similar in that she has worsening dyspnea over the last 6 hours to the point where it is now severe and her diffuse pain has also continued to increase along with the dyspnea and it too is now severe. She tried increasing her O2 at home from 2 L/min to 3 L/min without much improvement in her dyspnea. She also noted a subjective fever at home prior to coming to the emergency room. She did get some relief of her dyspnea with nebulizer treatments and Solu-Medrol in the ambulance. In the emergency room she was found to have labored breathing and hypoxia without oxygen support of at least 4 L/min and even then her increased work of breathing led to her being placed on BiPAP. She will be admitted to the hospital for pain control and respiratory support. She did announce that she wanted to change her status from DNR/DNI to full code prior to being placed on BiPAP. Past Medical History Cardiac Medical History: Denies: Coronary Artery Disease, Myocardial Infarction, Hypertension Pulmonary Medical History: Reports: Asthma - TEENAGER, Pneumonia - recently d/c'd 05/10/17, Respiratory Failure Denies: Bronchitis, Chronic Obstructive Pulmonary Disease (COPD), Tuberculosis EENT Medical History: Reports: None Neurological Medical History: Reports: Migraine, Seizures Endocrine Medical History: Denies: Diabetes Mellitus Type 1, Diabetes Mellitus Type 2 Renal/ Medical History: Denies: Chronic Kidney Disease, Nephrolithiasis Malignancy Medical History: Reports: Brain Cancer, Breast Cancer - right mastectomy. With metastases to brain and lungs and pleural fluid, Lung Cancer GI Medical History: Reports: Gastroesophageal Reflux Disease Denies: Cirrhosis, Hepatitis, Hiatal Hernia Musculoskeltal Medical History: Reports: Fibromyalgia Denies: Arthritis Skin Medical History: Denies: Eczema, Psoriasis Psychiatric Medical History: Denies: Alcohol Dependency, Depression, Substance Abuse, Tobacco Dependency Traumatic Medical History: Reports: None Hematology: Denies: Anemia, Sickle Cell Disease, Bleeding Tendencies Infectious Medical History: Reports: None Past Surgical History Past Surgical History: Reports: Amputation, Section - x2, Chol ecystectomy, Mastectomy - Right right mastectomy with axillary node dissection, Orthopedic Surgery, Tonsillectomy, Tubal Ligation, Vascular Surgery - Left chest wall port Social History Information Source: Patient Lives with: Family Smoking Status: Never Smoker Frequency of Alcohol Use: None Hx Recreational Drug Use: No Drugs: None Hx Prescription Drug Abuse: No - Advance Directive Resuscitation Status: Full Code Surrogate healthcare decision maker:: Sister Family History Family History: DM Parental Family History Reviewed: Yes Children Family History Reviewed: No Sibling(s) Family History Reviewed.: Yes Medication/Allergy Home Medications: Esomeprazole Magnesium [Nexium] 20 mg PO DAILY 06/30/18 Nortriptyline HCl [Pamelor 10 mg Capsule] 10 mg PO QHS 06/30/18 Oxycodone HCl [Oxy-Ir 5 mg Tablet] 40 mg PO Q4HP PRN 06/30/18 Methylprednisolone [Medrol Dosepack (4 mg/Tab) 21 Tab/Dosepak] 21 tab PO TID #1 dspk 07/03/18 Allergies/Adverse Reactions: Adhesive Bandage * [Adhesive Bandage] Allergy (Mild, Verified 06/30/18 11:25) Generalized rash adhesive tape [Adhesive Tape] Allergy (Mild, Verified 06/30/18 11:25) Generalized rash Physical Exam Vital Signs: Temp Pulse Resp BP Pulse Ox 97.5 F 07/05/18 03:17 Intake & Output 07/03/18 07/04/18 07/05/18 23:59 23:59 23:59 Weight 73.3 kg General appearance: PRESENT: cooperative, severe distress - Due to pain, other - On BiPAP Head exam: PRESENT: atraumatic, normocephalic Eye exam: PRESENT: conjunctiva pink, EOMI. ABSENT: scleral icterus Ear exam: PRESENT: normal external ear exam. ABSENT: bleeding, drainage Mouth exam: PRESENT: dry mucosa, neck supple Neck exam: ABSENT: thyromegaly, tracheal deviation Respiratory exam: PRESENT: accessory muscle use - Moderate use of accessory muscles for respiration even with CPAP, decreased breath sounds - Breath sounds decreased in all soriano more pronounced decrease at bilateral bases, prolonged expiratory phas - Prolonged expiratory phase in all soriano with poor air movement noted throughout all soriano, symmetrical, wheezes - Mild very high- pitched end-expiratory wheezes present in all soriano Cardiovascular exam: PRESENT: RRR. ABSENT: clicks, gallop, rubs Pulses: PRESENT: normal radial pulses, normal dorsalis pedis pul Vascular exam: PRESENT: normal capillary refill. ABSENT: pallor GI/Abdominal exam: PRESENT: normal bowel sounds, soft Rectal exam: PRESENT: deferred Extremities exam: ABSENT: joint swelling, pedal edema Musculoskeletal exam: ABSENT: deformity, dislocation Neurological exam: PRESENT: alert, oriented to person, oriented to place, oriented to time, oriented to situation, CN II-XII grossly intact. ABSENT: motor sensory deficit Psychiatric exam: PRESENT: appropriate affect, normal mood Skin exam: PRESENT: dry, intact, warm. ABSENT: jaundice, rash, urticaria Results Laboratory Results: 07/05/18 03:42 07/05/18 03:42 07/05/18 07/05/18 03:42 03:42 WBC 8.9 RBC 3.54 L Hgb 11.8 L Hct 35.3 L MCV 100 H MCH 33.3 MCHC 33.3 RDW 17.0 H Plt Count 330 D Seg Neutrophils % 71.5 Lymphocytes % 16.5 Monocytes % 10.3 Eosinophils % 0.4 Basophils % 1.3 Absolute Neutrophils 6.4 Absolute Lymphocytes 1.5 Absolute Monocytes 0.9 Absolute Eosinophils 0.0 Absolute Basophils 0.1 Sodium 139.4 Potassium 4.0 Chloride 98 Carbon Dioxide 36 H Anion Gap 5 BUN 15 Creatinine 0.75 Est GFR ( Amer) > 60 Est GFR (Non-Af Amer) > 60 Glucose 121 H Calcium 8.9 Total Bilirubin 0.8 AST 100 H ALT 90 H Alkaline Phosphatase 200 H Total Protein 7.2 Albumin 4.0 Impressions: Abdomen/Pelvis CT 07/05/18 03:21 IMPRESSION: Negative for pulmonary embolus, thoracic aortic aneurysm, or dissection. Small bilateral pleural effusions with a loculated thick walled pleural fluid collection along the lateral right lung base, similar to the prior exam. Adjacent pleural thickening. Pleural-based metastatic disease is not excluded. Extensive airspace opacities bilaterally which may reflect pneumonia. Prominent interstitial changes are noted for which lymphangitic spread of disease is not excluded. Moderate to large pericardial effusion. Small volume of ascites. TECHNICAL DOCUMENTATION: Quality ID # 436: Final reports with documentation of one or more dose reduction techniques (e.g., Automated exposure control, adjustment of the mA and/or kV according to patient size, use of iterative reconstruction technique) copyright 2010 [employer]- All Rights Reserved Chest/Abdomen CTA 07/05/18 03:21 IMPRESSION: Negative for pulmonary embolus, thoracic aortic aneurysm, or dissection. Small bilateral pleural effusions with a loculated thick walled pleural fluid collection along the lateral right lung base, similar to the prior exam. Adjacent pleural thickening. Pleural-based metastatic disease is not excluded. Extensive airspace opacities bilaterally which may reflect pneumonia. Prominent interstitial changes are noted for which lymphangitic spread of disease is not excluded. Moderate to large pericardial effusion. Small volume of ascites. TECHNICAL DOCUMENTATION: Quality ID # 436: Final reports with documentation of one or more dose reduction techniques (e.g., Automated exposure control, adjustment of the mA and/or kV according to patient size, use of iterative reconstruction technique) copyright 2010 [employer]- All Rights Reserved Assessment & Plan - Diagnosis (1) Acute respiratory failure with hypoxia Is this a current diagnosis for this admission?: Yes Plan: Patient will be supported with nasal cannula oxygen or BiPAP respiratory support as needed to maintain an adequate oxygen saturation greater than 93%. She is willing to be intubated if required. (2) Intractable pain Is this a current diagnosis for this admission?: Yes Plan: Patient will be treated with high-dose morphine on a sliding scale administered intravenously utilizing 5-10 mg every hour as needed pain (3) Nonspecific interstitial pneumonitis Is this a current diagnosis for this admission?: Yes Plan: Patient will be treated with antibiotic therapy for coverage however this may be a pneumonitis related to her tumor as previously thought. Coverage will be obtained utilizing Merrem plus Zithromax and metronidazole administered intravenously. An aggressive pulmonary toilet will be used with Xopenex, Atrovent, Pulmicort and albuterol nebulizers. Patient will also be given IV Solu-Medrol and a short burst. (4) Metastatic breast cancer Is this a current diagnosis for this admission?: Yes Plan: A hematology oncology consultation can be obtained with Dr. Reveles as needed. The patient has revoked her DNR status. - Time Time Spent: 30 to 50 Minutes Critical Time spent with patient: Less than 15 minutes Medications reviewed and adjusted accordingly: Yes Anticipated discharge: Home - Inpatient Certification Based on my medical assessment, after consideration of the patient's comorbidities, presenting symptoms, or acuity I expect that the services needed warrant INPATIENT care.: Yes I certify that my determination is in accordance with my understanding of Medicare's requirements for reasonable and necessary INPATIENT services [42 CFR 412.3e].: Yes Medical Necessity: Significant Comorbidiites Make Outpatient Treatment Too Risky, Need Close Monitoring Due to Risk of Patient Decompensation, Need for Pain Control, Need for IV Antibiotics, Risk of Complication if Not Cared For in Hospital
[2018-07-05] MEDS: LEVALBUTEROL HCL NEB 1.25 MG/3 ML AMPUL NEB SCH ×2 (08:30→16:20)
[2018-07-05] MEDS: BUDESONIDE NEB 0.5 MG/2 ML AMPUL NEB SCH ×2 (08:30→19:24)
--- NOTE | 2018-07-05 09:01 | PDOC PROGRESS REPORT ---
Subjective Progress Note for:: 07/05/18 Subjective:: 07/05/[id number]-[id number]-old female with a history of breast cancer metastasis to the chest wall, history of brain metastasis status post whole radiation with complete resolution of the brain metastasis, she was recently in this hospital for intractable nausea and vomitings and chest pains she was discharged 2 days ago on Medrol Dosepak and on pain medications came to the emergency room last night with complaints of severe shortness of breath and diffuse chest pain. In the emergency room she told the admitting physician that she wants to be a full code. She was started on IV fluids antibiotics and Solu-Medrol therapy and oncology was consulted. No acute events since the admission. When I went to see the patient she is comfortably in the bed talking to his friend. She confirmed to me that she is a full code. Vital signs today blood pressure is 124/98 and respirations are 22 pulse ox is 96% on 5 L. She uses oxygen at home. Reason For Visit: ACUTE HYPOXIC RESPIRATORY FAILURE Physical Exam Vital Signs: Temp Pulse Resp BP Pulse Ox 97.5 F 22 H 124/98 H 96 07/05/18 03:17 07/05/18 07:01 07/05/18 07:01 07/05/18 07:01 Intake & Output 07/04/18 07/05/18 07/06/18 06:59 06:59 06:59 Weight 73.3 kg General appearance: PRESENT: mild distress Head exam: PRESENT: atraumatic Eye exam: PRESENT: PERRLA Mouth exam: PRESENT: moist Neck exam: ABSENT: carotid bruit, JVD, lymphadenopathy, thyromegaly Respiratory exam: PRESENT: crackles, decreased breath sounds, wheezes Cardiovascular exam: PRESENT: tachycardia GI/Abdominal exam: PRESENT: normal bowel sounds, soft. ABSENT: distended, guarding, mass, organolmegaly, rebound, tenderness Extremities exam: PRESENT: full ROM. ABSENT: calf tenderness, clubbing, pedal edema Neurological exam: PRESENT: alert, awake, oriented to person, oriented to place, oriented to time, oriented to situation, CN II-XII grossly intact. ABSENT: motor sensory deficit Psychiatric exam: PRESENT: appropriate affect, normal mood. ABSENT: homicidal ideation, suicidal ideation Results Laboratory Results: 07/05/18 03:42 07/05/18 03:42 07/05/18 07/05/18 03:42 03:42 WBC 8.9 RBC 3.54 L Hgb 11.8 L Hct 35.3 L MCV 100 H MCH 33.3 MCHC 33.3 RDW 17.0 H Plt Count 330 D Seg Neutrophils % 71.5 Lymphocytes % 16.5 Monocytes % 10.3 Eosinophils % 0.4 Basophils % 1.3 Absolute Neutrophils 6.4 Absolute Lymphocytes 1.5 Absolute Monocytes 0.9 Absolute Eosinophils 0.0 Absolute Basophils 0.1 Sodium 139.4 Potassium 4.0 Chloride 98 Carbon Dioxide 36 H Anion Gap 5 BUN 15 Creatinine 0.75 Est GFR ( Amer) > 60 Est GFR (Non-Af Amer) > 60 Glucose 121 H Calcium 8.9 Total Bilirubin 0.8 AST 100 H ALT 90 H Alkaline Phosphatase 200 H Total Protein 7.2 Albumin 4.0 Impressions: Abdomen/Pelvis CT 07/05/18 03:21 IMPRESSION: Negative for pulmonary embolus, thoracic aortic aneurysm, or dissection. Small bilateral pleural effusions with a loculated thick walled pleural fluid collection along the lateral right lung base, similar to the prior exam. Adjacent pleural thickening. Pleural-based metastatic disease is not excluded. Extensive airspace opacities bilaterally which may reflect pneumonia. Prominent interstitial changes are noted for which lymphangitic spread of disease is not excluded. Moderate to large pericardial effusion. Small volume of ascites. TECHNICAL DOCUMENTATION: Quality ID # 436: Final reports with documentation of one or more dose reduction techniques (e.g., Automated exposure control, adjustment of the mA and/or kV according to patient size, use of iterative reconstruction technique) copyright 2010 [employer]- All Rights Reserved Chest/Abdomen CTA 07/05/18 03:21 IMPRESSION: Negative for pulmonary embolus, thoracic aortic aneurysm, or dissection. Small bilateral pleural effusions with a loculated thick walled pleural fluid collection along the lateral right lung base, similar to the prior exam. Adjacent pleural thickening. Pleural-based metastatic disease is not excluded. Extensive airspace opacities bilaterally which may reflect pneumonia. Prominent interstitial changes are noted for which lymphangitic spread of disease is not excluded. Moderate to large pericardial effusion. Small volume of ascites. TECHNICAL DOCUMENTATION: Quality ID # 436: Final reports with documentation of one or more dose reduction techniques (e.g., Automated exposure control, adjustment of the mA and/or kV according to patient size, use of iterative reconstruction technique) copyright 2010 [employer]- All Rights Reserved Assessment & Plan - Diagnosis (1) Acute respiratory failure with hypoxia Is this a current diagnosis for this admission?: Yes Plan: Patient will be supported with nasal cannula oxygen or BiPAP respiratory support as needed to maintain an adequate oxygen saturation greater than 93%. She is willing to be intubated if required. 07/05/2018-patient came in with acute respiratory failure with hypoxia probably secondary to small bilateral pleural effusions and pericardial effusion which was moderate in size. Patient was started on Solu-Medrol 40 mg IV every 6 hours, BiPAP as needed. Presently she is on 5 L oxygen with pulse ox of 96%. pt on Xopenex nebulizations. Patient wants to be full code. ABG was requested around 8 AM today it is pending. Follow-up ABG for tomorrow requested. The CT scan indicates the possibility of pneumonia so she was presently on meropenem and Flagyl. Blood cultures and sputum cultures are pending. (2) Intractable pain Is this a current diagnosis for this admission?: Yes Plan: 07/08/2018 patient is complaining of diffused intractable pain across the chest wall. It is probably secondary to metastatic lesions from the primary breast cancer. She was started on morphine last night. Plan is to continue morphine IV as needed. (3) Nonspecific interstitial pneumonitis Is this a current diagnosis for this admission?: Yes Plan: 07/05/2018-admission CT of the chest ruled out PE but there is a suggestion by the radiologist that probably she might have pneumonia due to increased interstitial markings it may be nonspecific interstitial pneumonitis as I mentioned above she was on meropenem and Flagyl. Blood cultures sputum cultures are pending. She is on Xopenex nebulizations, albuterol neb, IV Solu-Medrol. (4) Metastatic breast cancer Is this a current diagnosis for this admission?: Yes Plan: A hematology oncology consultation can be obtained with Dr. Reveles as needed. The patient has revoked her DNR status. 07/05/2018 patient has history of breast cancer with a metastasis to the brain she received whole body irradiation follow-up investigations suggest resolution of the brain metastasis. But patient may have metastasis to the chest wall. She is came in with severe intractable pains nausea and vomitings. Dr. Faustin is consulted (5) Pericardial effusion Is this a current diagnosis for this admission?: Yes Plan: 07/05/2018-pericardial effusion was noticed during the last admission cardiology consult was done at that time and the effusion was moderate in size as per the filing and polishing supervisor is not compromising the heart function. We are going to continue to closely monitor the pericardial effusion. It may be secondary to metastasic lesions. - Time Time Spent with patient: 15-24 minutes Medications reviewed and adjusted accordingly: Yes Anticipated discharge: Hospice
[2018-07-05] MEDS: FONDAPARINUX SODIUM INJ 2.5 MG/0.5 ML DISP.SYRIN SUBCUT SCH (09:06)
--- NOTE | 2018-07-05 09:59 | PDOC CONSULTATION ---
Consultation Consult Date: 07/05/18 Consult reason:: Hematology Oncology consultation was requested for patient with metastatic breast cancer. History of Present Illness Admission Date/PCP: 07/05/18 05:51 MARTINEZ AHN MD History of Present Illness: EFFIE LOUIS is a 38 year old female with known history of stage IV breast cancer now with metastatic lesions to the chest known over the last year or so. She is currently on Xeloda. And actually having a very good response to therapy, she also has brain metastasis, most recent imaging done of the brain about 2 months ago indicated overall complete response to previous whole brain radiation. She was discharged from the hospital 2 days ago, but returns with worsening pain and dyspnea. She states that the long-acting pain medication does not seem to help as well as the short acting, so she does not always take this. When her pain gets worse, she is only able to come to the ED and get morphine IV which helps much better. When her breathing gets worse, her pain gets worse and vice versa. Repeat CT scans shows worsening ground glass consistent with pneumonia. She was started on antibiotics. Past Medical History Cardiac Medical History: Denies: Coronary Artery Disease, Myocardial Infarction, Hypertension Pulmonary Medical History: Reports: Asthma - TEENAGER, Pneumonia - recently d/c'd 05/10/17, Respiratory Failure Denies: Bronchitis, Chronic Obstructive Pulmonary Disease (COPD), Tuberculosis EENT Medical History: Reports: None Neurological Medical History: Reports: Migraine, Seizures Endocrine Medical History: Denies: Diabetes Mellitus Type 1, Diabetes Mellitus Type 2 Renal/ Medical History: Denies: Chronic Kidney Disease, Nephrolithiasis Malignancy Medical History: Reports: Brain Cancer, Breast Cancer - right mastectomy. With metastases to brain and lungs and pleural fluid, Lung Cancer GI Medical History: Reports: Gastroesophageal Reflux Disease Denies: Cirrhosis, Hepatitis, Hiatal Hernia Musculoskeltal Medical History: Reports: Fibromyalgia Denies: Arthritis Skin Medical History: Denies: Eczema, Psoriasis Psychiatric Medical History: Denies: Alcohol Dependency, Depression, Substance Abuse, Tobacco Dependency Traumatic Medical History: Reports: None Hematology: Denies: Anemia, Sickle Cell Disease, Bleeding Tendencies Infectious Medical History: Reports: None Past Surgical History Past Surgical History: Reports: Amputation, Section - x2, Cholecystectomy, Mastectomy - Right right mastectomy with axillary node dissection, Orthopedic Surgery, Tonsillectomy, Tubal Ligation, Vascular Surgery - Left chest wall port Social History Lives with: Family Smoking Status: Never Smoker Frequency of Alcohol Use: None Hx Recreational Drug Use: No Drugs: None Hx Prescription Drug Abuse: No - Advance Directive Resuscitation Status: Full Code Family History Family History: DM Family History: No change from previous admission, last week. Parental Family History Reviewed: No Children Family History Reviewed: No Sibling(s) Family History Reviewed.: No Medication/Allergy Home Medications: Esomeprazole Magnesium [Nexium] 20 mg PO DAILY 06/30/18 Nortriptyline HCl [Pamelor 10 mg Capsule] 10 mg PO QHS 06/30/18 Oxycodone HCl [Oxy-Ir 5 mg Tablet] 40 mg PO Q4HP PRN 06/30/18 Allergies/Adverse Reactions: Adhesive Bandage * [Adhesive Bandage] Allergy (Mild, Verified 06/30/18 11:25) Generalized rash adhesive tape [Adhesive Tape] Allergy (Mild, Verified 06/30/18 11:25) Generalized rash Review of Systems Constitutional: ABSENT: fever(s), headache(s) Eyes: ABSENT: visual disturbances Ears: ABSENT: hearing changes Nose, Mouth, and Throat: ABSENT: sore throat Cardiovascular: PRESENT: chest pain, dyspnea on exertion Respiratory: PRESENT: dyspnea Gastrointestinal: PRESENT: nausea, other - Difficulty swallowing, as if food is getting stuck. Genitourinary: PRESENT: difficulty urinating, dysuria Integumentary: ABSENT: rash Neurological: ABSENT: memory loss Psychiatric: PRESENT: anxiety Physical Exam Vital Signs: Temp Pulse Resp BP Pulse Ox 97.5 F 30 H 122/102 H 98 07/05/18 03:17 07/05/18 09:01 07/05/18 09:01 07/05/18 09:01 Intake & Output 07/04/18 07/05/18 07/06/18 06:59 06:59 06:59 Weight 73.3 kg General appearance: PRESENT: thin, well-developed Exam: 38 year old female. Head exam: PRESENT: normocephalic Eye exam: PRESENT: EOMI, PERRLA Mouth exam: PRESENT: tongue midline Neck exam: ABSENT: lymphadenopathy, tenderness Respiratory exam: PRESENT: decreased breath sounds Cardiovascular exam: PRESENT: RRR GI/Abdominal exam: PRESENT: soft, tenderness Extremities exam: ABSENT: pedal edema Musculoskeletal exam: PRESENT: normal inspection Neurological exam: PRESENT: alert, awake Psychiatric exam: PRESENT: appropriate affect Skin exam: PRESENT: normal color Results Laboratory Results: 07/05/18 03:42 07/05/18 03:42 07/05/18 07/05/18 03:42 03:42 WBC 8.9 RBC 3.54 L Hgb 11.8 L Hct 35.3 L MCV 100 H MCH 33.3 MCHC 33.3 RDW 17.0 H Plt Count 330 D Seg Neutrophils % 71.5 Lymphocytes % 16.5 Monocytes % 10.3 Eosinophils % 0.4 Basophils % 1.3 Absolute Neutrophils 6.4 Absolute Lymphocytes 1.5 Absolute Monocytes 0.9 Absolute Eosinophils 0.0 Absolute Basophils 0.1 Sodium 139.4 Potassium 4.0 Chloride 98 Carbon Dioxide 36 H Anion Gap 5 BUN 15 Creatinine 0.75 Est GFR ( Amer) > 60 Est GFR (Non-Af Amer) > 60 Glucose 121 H Calcium 8.9 Total Bilirubin 0.8 AST 100 H ALT 90 H Alkaline Phosphatase 200 H Total Protein 7.2 Albumin 4.0 Impressions: Abdomen/Pelvis CT 07/05/18 03:21 IMPRESSION: Negative for pulmonary embolus, thoracic aortic aneurysm, or dissection. Small bilateral pleural effusions with a loculated thick walled pleural fluid collection along the lateral right lung base, similar to the prior exam. Adjacent pleural thickening. Pleural-based metastatic disease is not excluded. Extensive airspace opacities bilaterally which may reflect pneumonia. Prominent interstitial changes are noted for which lymphangitic spread of disease is not excluded. Moderate to large pericardial effusion. Small volume of ascites. TECHNICAL DOCUMENTATION: Quality ID # 436: Final reports with documentation of one or more dose reduction techniques (e.g., Automated exposure control, adjustment of the mA and/or kV according to patient size, use of iterative reconstruction technique) copyright 2011 [employer]- All Rights Reserved Chest/Abdomen CTA 07/05/18 03:21 IMPRESSION: Negative for pulmonary embolus, thoracic aortic aneurysm, or dissection. Small bilateral pleural effusions with a loculated thick walled pleural fluid collection along the lateral right lung base, similar to the prior exam. Adjacent pleural thickening. Pleural-based metastatic disease is not excluded. Extensive airspace opacities bilaterally which may reflect pneumonia. Prominent interstitial changes are noted for which lymphangitic spread of disease is not excluded. Moderate to large pericardial effusion. Small volume of ascites. TECHNICAL DOCUMENTATION: Quality ID # [id number]: Final reports with documentation of one or more dose reduction techniques (e.g., Automated exposure control, adjustment of the mA and/or kV according to patient size, use of iterative reconstruction technique) copyright 2011 [employer]- All Rights Reserved Status: Image reviewed by me Assessment & Plan - Diagnosis (1) Metastatic breast cancer Is this a current diagnosis for this admission?: Yes Plan: Treatment had been on hold for 3 weeks during which time patient believes she has gotten much worse. Most recent scans indicate response to current treatment. (2) Nonspecific interstitial pneumonitis Is this a current diagnosis for this admission?: Yes Plan: Currently on antibiotics. (3) Pericardial effusion Is this a current diagnosis for this admission?: Yes Plan: Unchanged from previously (4) Pleural effusion Is this a current diagnosis for this admission?: Yes Plan: Unchanged from previously. (5) Intractable pain Is this a current diagnosis for this admission?: Yes Plan: Will restart her long-acting pain medications and encourage her to use these. Agree with PRN morphine as well. (6) Constipation due to opioid therapy Is this a current diagnosis for this admission?: Yes Plan: Senna S RTC, other Laxatives PRN, and add Reglan for the feeling of early satiety. - Plan Summary Plan Summary: Patient was discussed with Dr. Peterson in the ED. Dr. Ahn will return on Saturday. Please call me if needed until then.
[2018-07-05] MEDS ORDERED: FAMOTIDINE 20 MG TABLET PO SCH (10:00)
[2018-07-05] MEDS ORDERED: DOCUSATE SODIUM 100 MG CAPSULE PO SCH (10:00)
[2018-07-05] MEDS: OXYCODONE HCL SR 40 MG TABLET PO SCH ×2 (10:39→21:51)
[2018-07-05] MEDS: MEROPENEM 1 GM in NORMAL SALINE 50 ML IV SCH ×2 (10:41→19:03)
[2018-07-05] MEDS ORDERED: METOCLOPRAMIDE HCL 10 MG TABLET PO SCH (11:00)
[2018-07-05] MEDS ORDERED: NALOXONE HCL INJ 2 MG/2 ML DISP.SYRIN ONE (12:12)
[2018-07-05] MEDS ORDERED: LORAZEPAM INJ 2 MG/1 ML VIAL IV PRN (12:26)
[2018-07-05] MEDS: ONDANSETRON HCL INJ/PF 4 MG/2 ML SDV IV PRN (12:50)
[2018-07-05] MEDS: METHYLPREDNISOLONE INJ 40 MG/1 ML SDV IV SCH ×2 (12:55→19:28)
[2018-07-05] MEDS: SENNOSIDES/DOCUSATE 8.6-50 MG 1 EACH TABLET PO SCH ×2 (13:02→19:10)
[2018-07-05] MEDS: METRONIDAZOLE 500 MG/NS RTU 500 MG/100 ML RTUPB IV SCH ×2 (13:03→20:42)
[2018-07-05] MEDS ORDERED: MAG HYDROX/AL HYDROX/SIMETH SUSP 30 ML UDCUP PO PRN (16:19)
[2018-07-05] MEDS: LIDOCAINE 2% VISCOUS SOLN 20 ML UDCUP PO PRN (16:47)
[2018-07-05] MEDS: MAG HYDROX/AL HYDROX/SIMETH SUSP 30 ML UDCUP PO PRN (16:47)
[2018-07-05] MEDS: PANTOPRAZOLE SODIUM 40 MG VIAL IV SCH (21:51)
[2018-07-05] MEDS: NORTRIPTYLINE HCL 10 MG CAPSULE PO SCH (21:51)
[2018-07-06] MEDS: METRONIDAZOLE 500 MG/NS RTU 500 MG/100 ML RTUPB IV SCH ×4 (00:05→18:58)
[2018-07-06] MEDS: LEVALBUTEROL HCL NEB 1.25 MG/3 ML AMPUL NEB SCH ×4 (00:12→23:43)
[2018-07-06] MEDS: METHYLPREDNISOLONE INJ 40 MG/1 ML SDV IV SCH (00:12)
[2018-07-06] MEDS: MEROPENEM 1 GM in NORMAL SALINE 50 ML IV SCH ×3 (02:30→18:58)
[2018-07-06] MEDS: MORPHINE SULFATE 10 MG/ML INJ IV PRN ×5 (02:44→22:26)
[2018-07-06 05:51] LABS: HEMATOCRIT 30.3 % (36.0-47.0); HEMOGLOBIN 10.4 g/dL (12.0-15.5); MEAN CORPUSCULAR HEMOGLOBIN 34.1 pg (27.0-33.4); MEAN CORPUSCULAR HGB CONC 34.5 g/dL (32.0-36.0); MEAN CORPUSCULAR VOLUME 99 fl (80-97); PLATELET COUNT 325 10^3/uL (150-450); RED BLOOD COUNT 3.06 10^6/uL (3.72-5.28); RED CELL DISTRIBUTION WIDTH 16.4 % (11.5-14.0); WHITE BLOOD COUNT 9.4 10^3/uL (4.0-10.5)
[2018-07-06 06:15] LABS: ALANINE AMINOTRANSFERASE 104 U/L (9-52); ALKALINE PHOSPHATASE 158 U/L (38-126); ANION GAP 5 (5-19); ASPARTATE AMINO TRANSFERASE 58 U/L (14-36); BILIRUBIN,DIRECT 0.2 mg/dL (0.0-0.4); BILIRUBIN,TOTAL 0.6 mg/dL (0.2-1.3); BLOOD UREA NITROGEN 13 mg/dL (7-20); CALCIUM 9.2 mg/dL (8.4-10.2); CARBON DIOXIDE 35 mmol/L (22-30); CHLORIDE 96 mmol/L (98-107); GLUCOSE 132 mg/dL (75-110); POTASSIUM 4.9 mmol/L (3.6-5.0); SODIUM 136.2 mmol/L (137-145); TOTAL PROTEIN 6.9 g/dL (6.3-8.2)
[2018-07-06 06:22] LABS: ARTERIAL BLOOD BASE EXCESS 5.8 mmol/L; ARTERIAL BLOOD H2CO3 1.57 mmol/L (1.05-1.35); ARTERIAL BLOOD HCO3 31.6 mmol/L (20-24); ARTERIAL BLOOD O2 SATURATION 98.3 % (94-98); ARTERIAL BLOOD PCO2 52.1 mmHg (35-45); ARTERIAL BLOOD PO2 119.4 mmHg (80-100); ARTERIAL BLOOD TOTAL CO2 33.2 mmol/L (21-25)
[2018-07-06 06:26] LABS: ARTERIAL BLOOD FIO2 4LNC
[2018-07-06 06:39] LABS: ABSOLUTE LYMPHOCYTES# (MANUAL) 0.2 10^3/uL (0.5-4.7); ABSOLUTE MONOCYTES # (MANUAL) 1.2 10^3/uL (0.1-1.4); ANISOCYTOSIS 1+; BASOPHILS % (MANUAL) 0 % (0-2); EOSINOPHILS % (MANUAL) 0 % (0-6); LYMPHOCYTES % (MANUAL) 2 % (13-45); MONOCYTES % (MANUAL) 13 % (3-13); PLATELET COMMENT ADEQUATE; PLATELET LARGE PRESENT; SCHISTOCYTES SLIGHT; SEGMENTED NEUTROPHILS % (MAN) 85 % (42-78); TOTAL CELLS COUNTED 100; TOXIC GRANULATION SLIGHT
[2018-07-06] MEDS: BUDESONIDE NEB 0.5 MG/2 ML AMPUL NEB SCH ×2 (08:00→19:09)
--- NOTE | 2018-07-06 09:41 | PDOC PROGRESS REPORT ---
Subjective Progress Note for:: 07/06/18 Subjective:: [birth year][id number]-mogf-old female with a history of breast cancer metastasis to the chest wall, history of brain metastasis status post whole radiation with complete resolution of the brain metastasis, she was recently in this hospital for intractable nausea and vomitings and chest pains she was discharged 2 days ago on Medrol Dosepak and on pain medications came to the emergency room last night with complaints of severe shortness of breath and diffuse chest pain. In the emergency room she told the admitting physician that she wants to be a full code. She was started on IV fluids antibiotics and Solu-Medrol therapy and oncology was consulted. No acute events since the admission. When I went to see the patient she is comfortably in the bed talking to his friend. She confirmed to me that she is a full code. Vital signs today blood pressure is 124/98 and respirations are 22 pulse ox is 96% on 5 L. She uses oxygen at home. 07/06/2018- 38-year-old female with history of breast cancer admitted for shortness of breath and severe chest pains. No acute events in the last 24 hours. She is getting morphine [id number] and she is also Ativan for anxiety. Pulse ox on 4 L is 100% this morning. Patient is afebrile Reason For Visit: ACUTE HYPOXIC RESPIRATORY FAILURE Physical Exam Vital Signs: Temp Pulse Resp BP Pulse Ox 97.3 F 85 17 124/85 100 07/06/18 08:14 07/06/18 08:14 07/06/18 08:14 07/06/18 08:14 07/06/18 08:14 Intake & Output 07/05/18 07/06/18 07/07/18 06:59 06:59 06:59 Intake Total 450 Balance 450 Weight 73.3 kg 70.9 kg General appearance: PRESENT: no acute distress Head exam: PRESENT: atraumatic Eye exam: PRESENT: PERRLA Mouth exam: PRESENT: dry mucosa Neck exam: ABSENT: carotid bruit, JVD, lymphadenopathy, thyromegaly Respiratory exam: PRESENT: decreased breath sounds Cardiovascular exam: PRESENT: tachycardia GI/Abdominal exam: PRESENT: normal bowel sounds, soft. ABSENT: distended, guar ding, mass, organolmegaly, rebound, tenderness Neurological exam: PRESENT: alert, awake, oriented to person, oriented to place, oriented to time, oriented to situation, CN II-XII grossly intact. ABSENT: motor sensory deficit Results Laboratory Results: 07/06/18 05:30 07/06/18 05:30 07/06/18 07/06/18 07/06/18 05:30 05:30 05:30 WBC 9.4 RBC 3.06 L Hgb 10.4 L Hct 30.3 L MCV 99 H MCH 34.1 H MCHC 34.5 RDW 16.4 H Plt Count 325 Seg Neutrophils % Not Reportable Lymphocytes % Not Reportable Monocytes % Not Reportable Eosinophils % Not Reportable Basophils % Not Reportable Absolute Neutrophils Not Reportable Absolute Lymphocytes Not Reportable Absolute Monocytes Not Reportable Absolute Eosinophils Not Reportable Absolute Basophils Not Reportable Carbonic Acid HCO3/H2CO3 Ratio ABG pH ABG pCO2 ABG pO2 ABG HCO3 ABG O2 Saturation ABG Base Excess FiO2 Sodium 136.2 L Potassium 4.9 Chloride 96 L Carbon Dioxide 35 H Anion Gap 5 BUN 13 Creatinine 0.68 Est GFR ( Amer) > 60 Est GFR (Non-Af Amer) > 60 Glucose 132 H Calcium 9.2 Magnesium 2.1 Total Bilirubin 0.6 AST 58 H ALT 104 H Alkaline Phosphatase 158 H Total Protein 6.9 Albumin 4.0 07/06/18 06:00 WBC RBC Hgb Hct MCV MCH MCHC RDW Plt Count Seg Neutrophils % Lymphocytes % Monocytes % Eosinophils % Basophils % Absolute Neutrophils Absolute Lymphocytes Absolute Monocytes Absolute Eosinophils Absolute Basophils Carbonic Acid 1.57 H HCO3/H2CO3 Ratio 20:1 ABG pH 7.40 ABG pCO2 52.1 H ABG pO2 119.4 H ABG HCO3 31.6 H ABG O2 Saturation 98.3 H ABG Base Excess 5.8 FiO2 4LNC Sodium Potassium Chloride Carbon Dioxide Anion Gap BUN Creatinine Est GFR ( Amer) Est GFR (Non-Af Amer) Glucose Calcium Magnesium Total Bilirubin AST ALT Alkaline Phosphatase Total Protein Albumin 07/06/18 05:30 NT-Pro-B Natriuret Pep 114 Impressions: Abdomen/Pelvis CT 07/05/18 03:21 IMPRESSION: Negative for pulmonary embolus, thoracic aortic aneurysm, or dissection. Small bilateral pleural effusions with a loculated thick walled pleural fluid collection along the lateral right lung base, similar to the prior exam. Adjacent pleural thickening. Pleural-based metastatic disease is not excluded. Extensive airspace opacities bilaterally which may reflect pneumonia. Prominent interstitial changes are noted for which lymphangitic spread of disease is not excluded. Moderate to large pericardial effusion. Small volume of ascites. TECHNICAL DOCUMENTATION: Quality ID # 436: Final reports with documentation of one or more dose reduction techniques (e.g., Automated exposure control, adjustment of the mA and/or kV according to patient size, use of iterative reconstruction technique) copyright 2010 [employer]- All Rights Reserved Chest/Abdomen CTA 07/05/18 03:21 IMPRESSION: Negative for pulmonary embolus, thoracic aortic aneurysm, or dissection. Small bilateral pleural effusions with a loculated thick walled pleural fluid collection along the lateral right lung base, similar to the prior exam. Adjacent pleural thickening. Pleural-based metastatic disease is not excluded. Extensive airspace opacities bilaterally which may reflect pneumonia. Prominent interstitial changes are noted for which lymphangitic spread of disease is not excluded. Moderate to large pericardial effusion. Small volume of ascites. TECHNICAL DOCUMENTATION: Quality ID # 436: Final reports with documentation of one or more dose reduction techniques (e.g., Automated exposure control, adjustment of the mA and/or kV according to patient size, use of iterative reconstruction technique) copyright 2010 [employer]- All Rights Reserved Assessment & Plan - Diagnosis (1) Acute respiratory failure with hypoxia Is this a current diagnosis for this admission?: Yes Plan: Patient will be supported with nasal cannula oxygen or BiPAP respiratory support as needed to maintain an adequate oxygen saturation greater than 93%. She is willing to be intubated if required. 07/05/2018-patient came in with acute respiratory failure with hypoxia probably secondary to small bilateral pleural effusions and pericardial effusion which was moderate in size. Patient was started on Solu-Medrol 40 mg IV every 6 hours, BiPAP as needed. Presently she is on 5 L oxygen with pulse ox of 96%. pt on Xopenex nebulizations. Patient wants to be full code. ABG was requested around 8 AM today it is pending. Follow-up ABG for tomorrow requested. The CT scan indicates the possibility of pneumonia so she was presently on meropenem and Flagyl. Blood cultures and sputum cultures are pending. 07/06/2018-patient came in with acute respiratory failure with hypoxia initially needed BiPAP for a short while pulse ox is improved to 98% on 2 L. Patient is presently on IV Solu-Medrol 40 mg 2 every 6 hours, oxygen 4 L nasal cannula, Xopenex nebulizations. ABG done today pH is 7.4 PCO2 52 PO2 120 bicarb is 31. Plan is to continue the present management. Acute respiratory failure with hypoxia probably secondary to underlying bilateral pleural effusions and pneumonia. (2) Intractable pain Is this a current diagnosis for this admission?: Yes Plan: 07/05/2018 patient is complaining of diffused intractable pain across the chest wall. It is probably secondary to metastatic lesions from the primary breast cancer. She was started on morphine last night. Plan is to continue morphine IV as needed. 07/06/2018-patient was admitted with intractable pain of the chest wall probably secondary to metastasis to the chest wall secondary to primary breast cancer. She is getting morphine 5 mg IV every hour as needed. (3) Nonspecific interstitial pneumonitis Is this a current diagnosis for this admission?: Yes Plan: 07/05/2018-admission CT of the chest ruled out PE but there is a suggestion by the radiologist that probably she might have pneumonia due to increased interstitial markings it may be nonspecific interstitial pneumonitis as I mentioned above she was on meropenem and Flagyl. Blood cultures sputum cultures are pending. She is on Xopenex nebulizations, albuterol neb, IV Solu-Medrol. 07/06/2018 CT chest shows possible pneumonia. Blood cultures are negative. Patient is presently on meropenem and Flagyl. T-max is 97.2. Plan is to continue Xopenex nebulizations, albuterol nebulizations and IV steroids. (4) Metastatic breast cancer Is this a current diagnosis for this admission?: Yes Plan: A hematology oncology consultation can be obtained with Dr. Reveles as needed. The patient has revoked her DNR status. 07/05/2018 patient has history of breast cancer with a metastasis to the brain she received whole body irradiation follow-up investigations suggest resolution of the brain metastasis. But patient may have metastasis to the chest wall. S he is came in with severe intractable pains nausea and vomitings. Dr. aFustin is consulted 07/06/2018-patient has history of breast cancer with previous history of metastasis to the brain. After treatment and follow-up investigations brain metastasis is resolved. She is having the severe chest pains this is a second admission for intractable chest wall pain secondary to probable breast cancer metastasis to the chest wall. Dr. Faustin is following the patient (5) Pericardial effusion Is this a current diagnosis for this admission?: Yes Plan: 07/05/2018-pericardial effusion was noticed during the last admission cardiology consult was done at that time and the effusion was moderate in size as per the clinical operations specialist is not compromising the heart function. We are going to continue to closely monitor the pericardial effusion. It may be secondary to metastasic lesions. 07/06/2018 CT scan shows moderate pericardial effusion she has echocardiogram was done in the last admission EF is normal. Patient is not in heart failure. On examination heart sounds are not muffled. Patient wants to be full code. Overall prognosis poor. - Time Time Spent with patient: 15-24 minutes Smoking Cessation Education: 3 to 10 minutes Medications reviewed and adjusted accordingly: Yes
[2018-07-06] MEDS: PANTOPRAZOLE SODIUM 40 MG VIAL IV SCH ×2 (11:09→22:16)
[2018-07-06] MEDS: SENNOSIDES/DOCUSATE 8.6-50 MG 1 EACH TABLET PO SCH ×2 (11:09→18:59)
[2018-07-06] MEDS: FONDAPARINUX SODIUM INJ 2.5 MG/0.5 ML DISP.SYRIN SUBCUT SCH (11:10)
[2018-07-06] MEDS: OXYCODONE HCL SR 40 MG TABLET PO SCH (11:40)
[2018-07-06] MEDS: NORTRIPTYLINE HCL 10 MG CAPSULE PO SCH (22:21)
[2018-07-06] MEDS: ONDANSETRON HCL INJ/PF 4 MG/2 ML SDV IV PRN (22:27)
[2018-07-07] MEDS: MORPHINE SULFATE 10 MG/ML INJ IV PRN ×5 (00:01→23:30)
[2018-07-07] MEDS: METRONIDAZOLE 500 MG/NS RTU 500 MG/100 ML RTUPB IV SCH ×4 (00:04→17:56)
[2018-07-07] MEDS: MEROPENEM 1 GM in NORMAL SALINE 50 ML IV SCH ×3 (02:26→17:56)
[2018-07-07] MEDS: ONDANSETRON HCL INJ/PF 4 MG/2 ML SDV IV PRN (02:26)
[2018-07-07] MEDS: PROMETHAZINE HCL INJ 25 MG/1 ML VIAL IV PRN ×2 (04:04→10:55)
[2018-07-07 06:53] LABS: ABSOLUTE MONOCYTES (AUTO) 1.1 10^3/uL (0.1-1.4); ABSOLUTE NEUT (AUTO) 5.8 10^3/uL (1.7-8.2); BASOPHILS % (AUTO) 0.2 % (0-2); EOSINOPHILS % (AUTO) 0.2 % (0-6); HEMATOCRIT 29.9 % (36.0-47.0); HEMOGLOBIN 10.1 g/dL (12.0-15.5); LYMPHOCYTES % (AUTO) 12.8 % (13-45); MEAN CORPUSCULAR HEMOGLOBIN 33.7 pg (27.0-33.4); MEAN CORPUSCULAR HGB CONC 33.8 g/dL (32.0-36.0); MEAN CORPUSCULAR VOLUME 100 fl (80-97); MONOCYTES % (AUTO) 14.1 % (3-13); PLATELET COUNT 300 10^3/uL (150-450); RED CELL DISTRIBUTION WIDTH 17.1 % (11.5-14.0); SEGMENTED NEUTROPHILS % (AUTO) 72.7 % (42-78); TOTAL CELLS COUNTED % (AUTO) 100 %
[2018-07-07 07:11] LABS: ANION GAP 8 (5-19); BLOOD UREA NITROGEN 16 mg/dL (7-20); CALCIUM 8.9 mg/dL (8.4-10.2); CARBON DIOXIDE 34 mmol/L (22-30); CHLORIDE 96 mmol/L (98-107); GLUCOSE 90 mg/dL (75-110); POTASSIUM 4.8 mmol/L (3.6-5.0); SODIUM 137.6 mmol/L (137-145)
[2018-07-07] MEDS: BUDESONIDE NEB 0.5 MG/2 ML AMPUL NEB SCH ×2 (07:54→20:26)
[2018-07-07] MEDS: LEVALBUTEROL HCL NEB 1.25 MG/3 ML AMPUL NEB SCH ×2 (07:54→16:06)
[2018-07-07] MEDS ORDERED: BISACODYL 5 MG TABEC PO PRN (08:26)
--- NOTE | 2018-07-07 08:39 | PDOC PROGRESS REPORT ---
Subjective Progress Note for:: 07/07/18 Subjective:: Still have continous emesis yesterday, not able to keep much down Reason For Visit: ACUTE HYPOXIC RESPIRATORY FAILURE Physical Exam Vital Signs: Temp Pulse Resp BP Pulse Ox 98.0 F 84 16 125/87 H 94 07/07/18 03:16 07/07/18 07:54 07/07/18 07:54 07/07/18 03:16 07/07/18 07:54 Intake & Output 07/06/18 07/07/18 07/08/18 06:59 06:59 06:59 Intake Total 450 1130 Balance 450 1130 Weight 70.9 kg 73.6 kg General appearance: PRESENT: no acute distress, well-developed, well-nourished Head exam: PRESENT: atraumatic, normocephalic Eye exam: PRESENT: conjunctiva pink, EOMI, PERRLA. ABSENT: scleral icterus Ear exam: PRESENT: normal external ear exam Mouth exam: PRESENT: moist, tongue midline Neck exam: ABSENT: carotid bruit, JVD, lymphadenopathy, thyromegaly Respiratory exam: PRESENT: clear to auscultation jose. ABSENT: rales, rhonchi, wheezes Cardiovascular exam: PRESENT: RRR. ABSENT: diastolic murmur, rubs, systolic murmur Pulses: PRESENT: normal dorsalis pedis pul Vascular exam: PRESENT: normal capillary refill GI/Abdominal exam: PRESENT: normal bowel sounds, soft. ABSENT: distended, guarding, mass, organolmegaly, rebound, tenderness Rectal exam: PRESENT: deferred Extremities exam: PRESENT: full ROM. ABSENT: calf tenderness, clubbing, pedal edema Neurological exam: PRESENT: alert, awake, oriented to person, oriented to place, oriented to time, oriented to situation, CN II-XII grossly intact. ABSENT: motor sensory deficit Psychiatric exam: PRESENT: appropriate affect, normal mood. ABSENT: homicidal ideation, suicidal ideation Skin exam: PRESENT: dry, intact, warm. ABSENT: cyanosis, rash Results Laboratory Results: 07/07/18 06:00 07/07/18 06:00 07/07/18 07/07/18 06:00 06:00 WBC 8.0 RBC 3.00 L Hgb 10.1 L Hct 29.9 L MCV 100 H MCH 33.7 H MCHC 33.8 RDW 17.1 H Plt Count 300 Seg Neutrophils % 72.7 Lymphocytes % 12.8 L Monocytes % 14.1 H Eosinophils % 0.2 Basophils % 0.2 Absolute Neutrophils 5.8 Absolute Lymphocytes 1.0 Absolute Monocytes 1.1 Absolute Eosinophils 0.0 Absolute Basophils 0.0 Sodium 137.6 Potassium 4.8 Chloride 96 L Carbon Dioxide 34 H Anion Gap 8 BUN 16 Creatinine 0.65 Est GFR ( Amer) > 60 Est GFR (Non-Af Amer) > 60 Glucose 90 Calcium 8.9 Magnesium 2.1 07/06/18 05:30 NT-Pro-B Natriuret Pep 114 Impressions: Abdomen/Pelvis CT 07/05/18 03:21 IMPRESSION: Negative for pulmonary embolus, thoracic aortic aneurysm, or dissection. Small bilateral pleural effusions with a loculated thick walled pleural fluid collection along the lateral right lung base, similar to the prior exam. Adjacent pleural thickening. Pleural-based metastatic disease is not excluded. Extensive airspace opacities bilaterally which may reflect pneumonia. Prominent interstitial changes are noted for which lymphangitic spread of disease is not excluded. Moderate to large pericardial effusion. Small volume of ascites. TECHNICAL DOCUMENTATION: Quality ID # 436: Final reports with documentation of one or more dose reduction techniques (e.g., Automated exposure control, adjustment of the mA and/or kV according to patient size, use of iterative reconstruction technique) copyright 2010 [employer]- All Rights Reserved Chest/Abdomen CTA 07/05/18 03:21 IMPRESSION: Negative for pulmonary embolus, thoracic aortic aneurysm, or dissection. Small bilateral pleural effusions with a loculated thick walled pleural fluid collection along the lateral right lung base, similar to the prior exam. Adjacent pleural thickening. Pleural-based metastatic disease is not excluded. Extensive airspace opacities bilaterally which may reflect pneumonia. Prominent interstitial changes are noted for which lymphangitic spread of disease is not excluded. Moderate to large pericardial effusion. Small volume of ascites. TECHNICAL DOCUMENTATION: Quality ID # 436: Final reports with documentation of one or more dose reduction techniques (e.g., Automated exposure control, adjustment of the mA and/or kV according to patient size, use of iterative reconstruction technique) copyright 2011 [employer]- All Rights Reserved Assessment & Plan - Diagnosis (1) Bacterial pneumonia Is this a current diagnosis for this admission?: Yes Plan: Does appear now that she has pneumonia cont atbx (2) Intractable pain Is this a current diagnosis for this admission?: Yes Plan: Cont current IV pain regimen, still not able to tolerate much PO (3) Metastatic breast cancer Is this a current diagnosis for this admission?: Yes Plan: There is possible progression w/ pericardial effusion but lungs are overall stable in terms of mets. Will cont outpt XELODA once d/c'd (4) Pericardial effusion Is this a current diagnosis for this admission?: Yes Plan: Not hemodynamically significant as of now, will follow as oupt (5) Vomiting Qualifiers: Vomiting type: bilious vomiting Is this a current diagnosis for this admission?: Yes Plan: Cont, will cont antiemetics, will address constipation also - Time Time Spent with patient: 35 or more minutes Disposition: long discussion w/ pt today, told her she should stay for at least another 24 hours until nausea/vomiting no longer intractable and pain controllable by PO regimen - Inpatient Certification Based on my medical assessment, after consideration of the patient's comorbidities, presenting symptoms, or acuity I expect that the services needed warrant INPATIENT care.: Yes I certify that my determination is in accordance with my understanding of Medicare's requirements for reasonable and necessary INPATIENT services [42 CFR 412.3e].: Yes Medical Necessity: Need For IV Fluids, Need for Pain Control, Risk of Complication if Not Cared For in Hospital
--- NOTE | 2018-07-07 09:04 | PDOC PROGRESS REPORT ---
Subjective Progress Note for:: 07/07/18 Subjective:: [birth year]22-dkay-old female with a history of breast cancer metastasis to the chest wall, history of brain metastasis status post whole radiation with complete resolution of the brain metastasis, she was recently in this hospital for intractable nausea and vomitings and chest pains she was discharged 2 days ago on Medrol Dosepak and on pain medications came to the emergency room last night with complaints of severe shortness of breath and diffuse chest pain. In the emergency room she told the admitting physician that she wants to be a full code. She was started on IV fluids antibiotics and Solu-Medrol therapy and oncology was consulted. No acute events since the admission. When I went to see the patient she is comfortably in the bed talking to his friend. She confirmed to me that she is a full code. Vital signs today blood pressure is 124/98 and respirations are 22 pulse ox is 96% on 5 L. She uses oxygen at home. 07/06/2018- 38-year-old female with history of breast cancer admitted for shortness of breath and severe chest pains. No acute events in the last 24 hours. She is getting morphine [id number] and she is also Ativan for anxiety. Pulse ox on 4 L is 100% this morning. Patient is afebrile 07/07/2018 38-year-old with history of breast cancer came with severe shortness of breath and severe chest pains. Cardiac enzymes are negative. Shortness of breath is much improved. Pulse ox is 94% on room air. She does not require any BiPAP anymore. She still throwing up unable to keep anything down. Dr. Ahn saw the patient today. She is on Zofran IV and Phenergan IV and alternatively. She is also severely constipated we tried to give anymore but she does not want it. Patient is afebrile. No acute events. Reason For Visit: ACUTE HYPOXIC RESPIRATORY FAILURE Physical Exam Vital Signs: Temp Pulse Resp BP Pulse Ox 98.0 F 84 16 125/87 H 94 07/07/18 03:16 07/07/18 07:54 07/07/18 07:54 07/07/18 03:16 07/07/18 07:54 Intake & Output 07/06/18 07/07/18 07/08/18 06:59 06:59 06:59 Intake Total 450 1130 Balance 450 1130 Weight 70.9 kg 73.6 kg General appearance: PRESENT: no acute distress Head exam: PRESENT: atraumatic Eye exam: PRESENT: PERRLA Neck exam: ABSENT: carotid bruit, JVD, lymphadenopathy, thyromegaly Respiratory exam: PRESENT: clear to auscultation jose. ABSENT: rales, rhonchi, wheezes Cardiovascular exam: PRESENT: RRR. ABSENT: diastolic murmur, rubs, systolic murmur GI/Abdominal exam: PRESENT: normal bowel sounds, soft. ABSENT: distended, guarding, mass, organolmegaly, rebound, tenderness Extremities exam: PRESENT: full ROM. ABSENT: calf tenderness, clubbing, pedal edema Neurological exam: PRESENT: alert, awake, oriented to person, oriented to place, oriented to time, oriented to situation, CN II-XII grossly intact. ABSENT: motor sensory deficit Psychiatric exam: PRESENT: appropriate affect, normal mood. ABSENT: homicidal ideation, suicidal ideation Results Laboratory Results: 07/07/18 06:00 07/07/18 06:00 07/07/18 07/07/18 06:00 06:00 WBC 8.0 RBC 3.00 L Hgb 10.1 L Hct 29.9 L MCV 100 H MCH 33.7 H MCHC 33.8 RDW 17.1 H Plt Count 300 Seg Neutrophils % 72.7 Lymphocytes % 12.8 L Monocytes % 14.1 H Eosinophils % 0.2 Basophils % 0.2 Absolute Neutrophils 5.8 Absolute Lymphocytes 1.0 Absolute Monocytes 1.1 Absolute Eosinophils 0.0 Absolute Basophils 0.0 Sodium 137.6 Potassium 4.8 Chloride 96 L Carbon Dioxide 34 H Anion Gap 8 BUN 16 Creatinine 0.65 Est GFR ( Amer) > 60 Est GFR (Non-Af Amer) > 60 Glucose 90 Calcium 8.9 Magnesium 2.1 07/06/18 05:30 NT-Pro-B Natriuret Pep 114 Impressions: Abdomen/Pelvis CT 07/05/18 03:21 IMPRESSION: Negative for pulmonary embolus, thoracic aortic aneurysm, or dissection. Small bilateral pleural effusions with a loculated thick walled pleural fluid collection along the lateral right lung base, similar to the prior exam. Adjacent pleural thickening. Pleural-based metastatic disease is not excluded. Extensive airspace opacities bilaterally which may reflect pneumonia. Prominent interstitial changes are noted for which lymphangitic spread of disease is not excluded. Moderate to large pericardial effusion. Small volume of ascites. TECHNICAL DOCUMENTATION: Quality ID # 436: Final reports with documentation of one or more dose reduction techniques (e.g., Automated exposure control, adjustment of the mA and/or kV according to patient size, use of iterative reconstruction technique) copyright 2010 [employer] [facility]- All Rights Reserved Chest/Abdomen CTA 07/05/18 03:21 IMPRESSION: Negative for pulmonary embolus, thoracic aortic aneurysm, or dissection. Small bilateral pleural effusions with a loculated thick walled pleural fluid collection along the lateral right lung base, similar to the prior exam. Adjacent pleural thickening. Pleural-based metastatic disease is not excluded. Extensive airspace opacities bilaterally which may reflect pneumonia. Prominent interstitial changes are noted for which lymphangitic spread of disease is not excluded. Moderate to large pericardial effusion. Small volume of ascites. TECHNICAL DOCUMENTATION: Quality ID # 436: Final reports with documentation of one or more dose reduction techniques (e.g., Automated exposure control, adjustment of the mA and/or kV according to patient size, use of iterative reconstruction technique) copyright 2010 [facility]- All Rights Reserved Assessment & Plan - Diagnosis (1) Acute respiratory failure with hypoxia Is this a current diagnosis for this admission?: Yes Plan: Patient will be supported with nasal cannula oxygen or BiPAP respiratory support as needed to maintain an adequate oxygen saturation greater than 93%. She is willing to be intubated if required. 07/05/2018-patient came in with acute respiratory failure with hypoxia probably secondary to small bilateral pleural effusions and pericardial effusion which was moderate in size. Patient was started on Solu-Medrol 40 mg IV every 6 hours, BiPAP as needed. Presently she is on 5 L oxygen with pulse ox of 96%. pt on Xopenex nebulizations. Patient wants to be full code. ABG was requested around 8 AM today it is pending. Follow-up ABG for tomorrow requested. The CT scan indicates the possibility of pneumonia so she was presently on meropenem and Flagyl. Blood cultures and sputum cultures are pending. 07/06/2018-patient came in with acute respiratory failure with hypoxia initially needed BiPAP for a short while pulse ox is improved to 98% on 2 L. Patient is presently on IV Solu-Medrol 40 mg 2 every 6 hours, oxygen 4 L nasal cannula, Xopenex nebulizations. ABG done today pH is 7.4 PCO2 52 PO2 120 bicarb is 31. Plan is to continue the present management. Acute respiratory failure with hypoxia probably secondary to underlying bilateral pleural effusions and pneumonia. 07/07/2018-patient came in with acute respiratory failure with hypoxia. Initially requiring BiPAP. Now the pulse ox is 94% on room air. This shortness of breath probably secondary to pneumonia. Presently she is on IV antibiotic therapy. She is also on Xopenex nebulizations. Chest x-ray shows small bilateral pleural effusions. (2) Intractable pain Is this a current diagnosis for this admission?: Yes Plan: 07/05/2018 patient is complaining of diffused intractable pain across the chest wall. It is probably secondary to metastatic lesions from the primary breast cancer. She was started on morphine last night. Plan is to continue morphine IV as needed. 07/06/2018-patient was admitted with intractable pain of the chest wall probably secondary to metastasis to the chest wall secondary to primary breast cancer. She is getting morphine 5 mg IV every hour as needed. 07/07/2018 patient has intractable pain probably secondary to breast cancer with metastasis to the chest wall. She is getting morphine 5 mg IV every 2 hours as needed for chest pain. oxycontine was discontinued yesterday because patient is unable to take the p.o. medications. (3) Nonspecific interstitial pneumonitis Is this a current diagnosis for this admission?: Yes Plan: 07/05/2018-admission CT of the chest ruled out PE but there is a suggestion by the radiologist that probably she might have pneumonia due to increased interstitial markings it may be nonspecific interstitial pneumonitis as I mentioned above she was on meropenem and Flagyl. Blood cultures sputum cultures are pending. She is on Xopenex nebulizations, albuterol neb, IV Solu-Medrol. 07/06/2018 CT chest shows possible pneumonia. Blood cultures are negative. Patient is presently on meropenem and Flagyl. T-max is 97.2. Plan is to continue Xopenex nebulizations, albuterol nebulizations and IV steroids. 07/07/2018-CT chest shows pneumonia. Cultures are negative so far. Presently on meropenem and Flagyl. T-max is 98. Pulse ox are improved. She is on room air pulse ox 94%. Plan is to continue the present management. (4) Metastatic breast cancer Is this a current diagnosis for this admission?: Yes Plan: A hematology oncology consultation can be obtained with Dr. Reveles as needed. The patient has revoked her DNR status. 07/05/2018 patient has history of breast cancer with a metastasis to the brain she received whole body irradiation follow-up investigations suggest resolution of the brain metastasis. But patient may have metastasis to the chest wall. She is came in with severe intractable pains nausea and vomitings. Dr. Faustin is consulted 07/06/2018-patient has history of breast cancer with previous history of metastasis to the brain. After treatment and follow-up investigations brain metastasis is resolved. She is having the severe chest pains this is a second admission for intractable chest wall pain secondary to probable breast cancer metastasis to the chest wall. Dr. Faustin is following the patient 07/07/2018-patient has history of breast cancer. Oncology is following the patient. We will continue to follow Dr. Ahn's recommendations. (5) Pericardial effusion Is this a current diagnosis for this admission?: Yes Plan: 07/05/2018-pericardial effusion was noticed during the last admission cardiology consult was done at that time and the effusion was moderate in size as per the clinical application manager is not compromising the heart function. We are going to continue to closely monitor the pericardial effusion. It may be secondary to metastasic lesions. 07/06/2018 CT scan shows moderate pericardial effusion she has echocardiogram was done in the last admission EF is normal. Patient is not in heart failure. On examination heart sounds are not muffled. Patient wants to be full code. Overall prognosis poor. 07/07/2018-chest CT shows moderate pericardial effusion. Patient is hemodynamically stable. Plan is to continue the present management. - Time Time Spent with patient: 15-24 minutes Medications reviewed and adjusted accordingly: Yes Anticipated discharge: Home
[2018-07-07] MEDS: FONDAPARINUX SODIUM INJ 2.5 MG/0.5 ML DISP.SYRIN SUBCUT SCH (09:15)
[2018-07-07] MEDS: SENNOSIDES/DOCUSATE 8.6-50 MG 1 EACH TABLET PO SCH ×2 (09:15→17:58)
[2018-07-07] MEDS: PANTOPRAZOLE SODIUM 40 MG VIAL IV SCH ×2 (09:16→21:39)
[2018-07-07] MEDS ORDERED: METOCLOPRAMIDE HCL ORAL SOLN 10 MG/10 ML UDCUP PO PRN (10:41)
[2018-07-07] MEDS: LIDOCAINE 2% VISCOUS SOLN 20 ML UDCUP PO PRN (10:47)
[2018-07-07] MEDS: MAG HYDROX/AL HYDROX/SIMETH SUSP 30 ML UDCUP PO PRN (10:48)
--- NOTE | 2018-07-07 18:20 | RADIOLOGY REPORT (SQ) ---
EXAM DESCRIPTION: CHEST 2 VIEWS COMPLETED DATE/TIME: 07/07/2018 5:42 pm REASON FOR STUDY: shortness of breath COMPARISON: 06/30/2018 EXAM PARAMETERS: NUMBER OF VIEWS: two views TECHNIQUE: Digital Frontal and Lateral radiographic views of the chest acquired. RADIATION DOSE: NA LIMITATIONS: none FINDINGS: LUNGS AND PLEURA: Increased opacification the right lower lung field. Patchy opacificatio n in the left which represents a new finding. MEDIASTINUM AND HILAR STRUCTURES: No masses or contour abnormalities. HEART AND VASCULAR STRUCTURES: Borderline heart size. No tim pulmonary edema. BONES: No acute findings. HARDWARE: Injection port on the left. OTHER: No other significant finding. IMPRESSION: Increasing opacification in the right base. Right lower lobe consolidation. There may be some pleural effusion. There are now all multiple foci of increased opacification on the left sug gesting multicentric pneumonia. TECHNICAL DOCUMENTATION: JOB ID: [id number] [employer]- All Rights Reserved Reading location - IP/workstation name: [email or web address]
[2018-07-07] MEDS: NORTRIPTYLINE HCL 10 MG CAPSULE PO SCH (23:11)
[2018-07-08] MEDS: LEVALBUTEROL HCL NEB 1.25 MG/3 ML AMPUL NEB SCH ×2 (00:30→07:58)
[2018-07-08] MEDS: METRONIDAZOLE 500 MG/NS RTU 500 MG/100 ML RTUPB IV SCH ×2 (00:55→05:09)
[2018-07-08] MEDS: MEROPENEM 1 GM in NORMAL SALINE 50 ML IV SCH ×2 (02:19→09:33)
[2018-07-08] MEDS: MORPHINE SULFATE 10 MG/ML INJ IV PRN ×2 (05:15→09:28)
[2018-07-08 05:44] LABS: ABSOLUTE EOSINOPHILS # (AUTO) 0.1 10^3/uL (0.0-0.6); ABSOLUTE LYMPHOCYTES (AUTO) 1.1 10^3/uL (0.5-4.7); ABSOLUTE MONOCYTES (AUTO) 1.2 10^3/uL (0.1-1.4); ABSOLUTE NEUT (AUTO) 5.8 10^3/uL (1.7-8.2); BASOPHILS % (AUTO) 0.3 % (0-2); EOSINOPHILS % (AUTO) 0.7 % (0-6); HEMATOCRIT 31.7 % (36.0-47.0); HEMOGLOBIN 10.6 g/dL (12.0-15.5); LYMPHOCYTES % (AUTO) 13.9 % (13-45); MEAN CORPUSCULAR HEMOGLOBIN 33.1 pg (27.0-33.4); MEAN CORPUSCULAR HGB CONC 33.4 g/dL (32.0-36.0); MEAN CORPUSCULAR VOLUME 99 fl (80-97); MONOCYTES % (AUTO) 14.1 % (3-13); PLATELET COUNT 312 10^3/uL (150-450); RED CELL DISTRIBUTION WIDTH 16.8 % (11.5-14.0); TOTAL CELLS COUNTED % (AUTO) 100 %; WHITE BLOOD COUNT 8.1 10^3/uL (4.0-10.5)
[2018-07-08 06:01] LABS: ALANINE AMINOTRANSFERASE 75 U/L (9-52); ALBUMIN 3.1 g/dL (3.5-5.0); ALKALINE PHOSPHATASE 119 U/L (38-126); ANION GAP 8 (5-19); ASPARTATE AMINO TRANSFERASE 42 U/L (14-36); BILIRUBIN,DIRECT 0.3 mg/dL (0.0-0.4); BILIRUBIN,TOTAL 0.4 mg/dL (0.2-1.3); BLOOD UREA NITROGEN 14 mg/dL (7-20); CALCIUM 8.2 mg/dL (8.4-10.2); CARBON DIOXIDE 33 mmol/L (22-30); CHLORIDE 97 mmol/L (98-107); GLUCOSE 91 mg/dL (75-110); SODIUM 137.5 mmol/L (137-145); TOTAL PROTEIN 5.4 g/dL (6.3-8.2)
[2018-07-08] MEDS: BUDESONIDE NEB 0.5 MG/2 ML AMPUL NEB SCH (07:58)
[2018-07-08] MEDS: FONDAPARINUX SODIUM INJ 2.5 MG/0.5 ML DISP.SYRIN SUBCUT SCH (08:06)
[2018-07-08 08:18] VITALS: BP 110/85
--- NOTE | 2018-07-08 08:48 | PDOC PROGRESS REPORT ---
Subjective Progress Note for:: 07/08/18 Subjective:: Patient did a little bit better yesterday, was able to tolerate more p.o., still had emesis. Had a good BM. Still feels pressure in the chest. Reason For Visit: ACUTE HYPOXIC RESPIRATORY FAILURE Physical Exam Vital Signs: Temp Pulse Resp BP Pulse Ox 98.1 F 119 H 18 110/85 99 07/08/18 07:57 07/08/18 07:58 07/08/18 07:58 07/08/18 07:57 07/08/18 07:58 Intake & Output 07/07/18 07/08/18 07/09/18 06:59 06:59 06:59 Intake Total 1230 1981 Balance 1230 1981 Weight 73.6 kg 73.9 kg General appearance: PRESENT: no acute distress, well-developed, well-nourished Head exam: PRESENT: atraumatic, normocephalic Eye exam: PRESENT: conjunctiva pink, EOMI, PERRLA. ABSENT: scleral icterus Ear exam: PRESENT: normal external ear exam Mouth exam: PRESENT: moist, tongue midline Neck exam: ABSENT: carotid bruit, JVD, lymphadenopathy, thyromegaly Respiratory exam: PRESENT: clear to auscultation jose. ABSENT: rales, rhonchi, wheezes Cardiovascular exam: PRESENT: RRR. ABSENT: diastolic murmur, rubs, systolic murmur Pulses: PRESENT: normal dorsalis pedis pul Vascular exam: PRESENT: normal capillary refill GI/Abdominal exam: PRESENT: normal bowel sounds, soft. ABSENT: distended, guarding, mass, organolmegaly, rebound, tenderness Rectal exam: PRESENT: deferred Extremities exam: PRESENT: full ROM. ABSENT: calf tenderness, clubbing, pedal edema Neurological exam: PRESENT: alert, awake, oriented to person, oriented to place, oriented to time, oriented to situation, CN II-XII grossly intact. ABSENT: motor sensory deficit Psychiatric exam: PRESENT: appropriate affect, normal mood. ABSENT: homicidal ideation, suicidal ideation Skin exam: PRESENT: dry, intact, warm. ABSENT: cyanosis, rash Results Laboratory Results: 07/08/18 05:10 07/08/18 05:10 07/08/18 07/08/18 05:10 05:10 WBC 8.1 RBC 3.20 L Hgb 10.6 L Hct 31.7 L MCV 99 H MCH 33.1 MCHC 33.4 RDW 16.8 H Plt Count 312 Seg Neutrophils % 71.0 Lymphocytes % 13.9 Monocytes % 14.1 H Eosinophils % 0.7 Basophils % 0.3 Absolute Neutrophils 5.8 Absolute Lymphocytes 1.1 Absolute Monocytes 1.2 Absolute Eosinophils 0.1 Absolute Basophils 0.0 Sodium 137.5 Potassium 4.0 Chloride 97 L Carbon Dioxide 33 H Anion Gap 8 BUN 14 Creatinine 0.77 Est GFR ( Amer) > 60 Est GFR (Non-Af Amer) > 60 Glucose 91 Calcium 8.2 L Magnesium 2.1 Total Bilirubin 0.4 AST 42 H ALT 75 H Alkaline Phosphatase 119 Total Protein 5.4 L Albumin 3.1 L 07/06/18 05:30 NT-Pro-B Natriuret Pep 114 Impressions: Abdomen/Pelvis CT 07/05/18 03:21 IMPRESSION: Negative for pulmonary embolus, thoracic aortic aneurysm, or dissection. Small bilateral pleural effusions with a loculated thick walled pleural fluid collection along the lateral right lung base, similar to the prior exam. Adjacent pleural thickening. Pleural-based metastatic disease is not excluded. Extensive airspace opacities bilaterally which may reflect pneumonia. Prominent interstitial changes are noted for which lymphangitic spread of disease is not excluded. Moderate to large pericardial effusion. Small volume of ascites. TECHNICAL DOCUMENTATION: Quality ID # 436: Final reports with documentation of one or more dose reduction techniques (e.g., Automated exposure control, adjustment of the mA and/or kV according to patient size, use of iterative reconstruction technique) copyright [employer]- All Rights Reserved Chest/Abdomen CTA 07/05/18 03:21 IMPRESSION: Negative for pulmonary embolus, thoracic aortic aneurysm, or dissection. Small bilateral pleural effusions with a loculated thick walled pleural fluid collection along the lateral right lung base, similar to the prior exam. Adjacent pleural thickening. Pleural-based metastatic disease is not excluded. Extensive airspace opacities bilaterally which may reflect pneumonia. Prominent interstitial changes are noted for which lymphangitic spread of disease is not excluded. Moderate to large pericardial effusion. Small volume of ascites. TECHNICAL DOCUMENTATION: Quality ID # 436: Final reports with documentation of one or more dose reduction techniques (e.g., Automated exposure control, adjustment of the mA and/or kV according to patient size, use of iterative reconstruction technique) copyright 2011 [employer]- All Rights Reserved Chest X-Ray 07/07/18 00:00 IMPRESSION: Increasing opacification in the right base. Right lower lobe consolidation. There may be some pleural effusion. There are now all multiple foci of increased opacification on the left suggesting multicentric pneumonia. Assessment & Plan - Diagnosis (1) Bacterial pneumonia Is this a current diagnosis for this admission?: Yes Plan: Possibly aspiration with the recent emesis, possibility hospital-acquired, continue with current antibiotics. (2) Intractable pain Is this a current diagnosis for this admission?: Yes Plan: Improving, continue current pain regimen (3) Metastatic breast cancer Is this a current diagnosis for this admission?: Yes Plan: Will reinitiate chemotherapy as an outpatient. (4) Pericardial effusion Is this a current diagnosis for this admission?: Yes Plan: Not hemodynamically significant but we may need to address as an outpatient as she does still have chest pressure. (5) Vomiting Qualifiers: Vomiting type: bilious vomiting Is this a current diagnosis for this admission?: Yes Plan: Improved, continue with current therapy - Time Time Spent with patient: 35 or more minutes Within: within 24 hours Disposition: I believe patient still needs another 24 hours and to see how she does in terms of her vomiting, would benefit from another 24 hours of IV antibiotics for bacterial pneumonia. - Inpatient Certification Based on my medical assessment, after consideration of the patient's comorbidities, presenting symptoms, or acuity I expect that the services needed warrant INPATIENT care.: Yes I certify that my determination is in accordance with my understanding of Medicare's requirements for reasonable and necessary INPATIENT services [42 CFR 412.3e].: Yes Medical Necessity: Need for Nebulizer Therapy and Monitoring of Response, Need for IV Antibiotics, Risk of Complication if Not Cared For in Hospital
--- NOTE | 2018-07-08 09:10 | PDOC PROGRESS REPORT ---
Subjective Progress Note for:: 07/08/18 Subjective:: [birth year][id number]-old female with a history of breast cancer metastasis to the chest wall, history of brain metastasis status post whole radiation with complete resolution of the brain metastasis, she was recently in this hospital for intractable nausea and vomitings and chest pains she was discharged 2 days ago on Medrol Dosepak and on pain medications came to the emergency room last night with complaints of severe shortness of breath and diffuse chest pain. In the emergency room she told the admitting physician that she wants to be a full code. She was started on IV fluids antibiotics and Solu-Medrol therapy and oncology was consulted. No acute events since the admission. When I went to see the patient she is comfortably in the bed talking to his friend. She confirmed to me that she is a full code. Vital signs today blood pressure is 124/98 and respirations are 22 pulse ox is 96% on 5 L. She uses oxygen at home. 07/06/2018- 38-year-old female with history of breast cancer admitted for shortness of breath and severe chest pains. No acute events in the last 24 hours. She is getting morphine [id number] and she is also Ativan for anxiety. Pulse ox on 4 L is 100% this morning. Patient is afebrile 07/07/2018 38-year-old with history of breast cancer came with severe shortness of breath and severe chest pains. Cardiac enzymes are negative. Shortness of breath is much improved. Pulse ox is 94% on room air. She does not require any BiPAP anymore. She still throwing up unable to keep anything down. Dr. Ahn saw the patient today. She is on Zofran IV and Phenergan IV and alternatively. She is also severely constipated we tried to give anymore but she does not want it. Patient is afebrile. No acute events. 07/08/1999 [id number] with history of stroke breast cancer admitted with severe shortness of breath and chest pains. Shortness of breath is improving but the chest x-ray were done yesterday shows may be worsening of the right lower lobe consolidation. She is on antibiotic therapy. Afebrile. No acute e vents in the last 24 hours. Pulse ox on 4 L is 99%. Blood cultures are negative so far. She is on meropenem IV and Flagyl IV. Patient is comfortable in the bed eating her breakfast denies any complaints today. She was started on trazodone nightly by Dr. Ahn. Reason For Visit: ACUTE HYPOXIC RESPIRATORY FAILURE Physical Exam Vital Signs: Temp Pulse Resp BP Pulse Ox 98.1 F 119 H 18 110/85 99 07/08/18 07:57 07/08/18 07:58 07/08/18 07:58 07/08/18 07:57 07/08/18 07:58 Intake & Output 07/07/18 07/08/18 07/09/18 06:59 06:59 06:59 Intake Total 1230 1981 Balance 1230 1981 Weight 73.6 kg 73.9 kg General appearance: PRESENT: no acute distress Head exam: PRESENT: atraumatic Eye exam: PRESENT: PERRLA Mouth exam: PRESENT: moist Neck exam: ABSENT: carotid bruit, JVD, lymphadenopathy, thyromegaly Respiratory exam: PRESENT: wheezes Cardiovascular exam: PRESENT: tachycardia GI/Abdominal exam: PRESENT: normal bowel sounds, soft. ABSENT: distended, guarding, mass, organolmegaly, rebound, tenderness Extremities exam: PRESENT: full ROM. ABSENT: calf tenderness, clubbing, pedal edema Neurological exam: PRESENT: alert, awake, oriented to person, oriented to place, oriented to time, oriented to situation, CN II-XII grossly intact. ABSENT: motor sensory deficit Psychiatric exam: PRESENT: appropriate affect, normal mood. ABSENT: homicidal ideation, suicidal ideation Results Laboratory Results: 07/08/18 05:10 07/08/18 05:10 07/08/18 07/08/18 05:10 05:10 WBC 8.1 RBC 3.20 L Hgb 10.6 L Hct 31.7 L MCV 99 H MCH 33.1 MCHC 33.4 RDW 16.8 H Plt Count 312 Seg Neutrophils % 71.0 Lymphocytes % 13.9 Monocytes % 14.1 H Eosinophils % 0.7 Basophils % 0.3 Absolute Neutrophils 5.8 Absolute Lymphocytes 1.1 Absolute Monocytes 1.2 Absolute Eosinophils 0.1 Absolute Basophils 0.0 Sodium 137.5 Potassium 4.0 Chloride 97 L Carbon Dioxide 33 H Anion Gap 8 BUN 14 Creatinine 0.77 Est GFR ( Amer) > 60 Est GFR (Non-Af Amer) > 60 Glucose 91 Calcium 8.2 L Magnesium 2.1 Total Bilirubin 0.4 AST 42 H ALT 75 H Alkaline Phosphatase 119 Total Protein 5.4 L Albumin 3.1 L 07/06/18 05:30 NT-Pro-B Natriuret Pep 114 Impressions: Abdomen/Pelvis CT 07/05/18 03:21 IMPRESSION: Negative for pulmonary embolus, thoracic aortic aneurysm, or dissection. Small bilateral pleural effusions with a loculated thick walled pleural fluid collection along the lateral right lung base, similar to the prior exam. Adjacent pleural thickening. Pleural-based metastatic disease is not excluded. Extensive airspace opacities bilaterally which may reflect pneumonia. Prominent interstitial changes are noted for which lymphangitic spread of disease is not excluded. Moderate to large pericardial effusion. Small volume of ascites. TECHNICAL DOCUMENTATION: Quality ID # 436: Final reports with documentation of one or more dose reduction techniques (e.g., Automated exposure control, adjustment of the mA and/or kV according to patient size, use of iterative reconstruction technique) copyright 2010 [employer]- All Rights Reserved Chest/Abdomen CTA 07/05/18 03:21 IMPRESSION: Negative for pulmonary embolus, thoracic aortic aneurysm, or dissection. Small bilateral pleural effusions with a loculated thick walled pleural fluid collection along the lateral right lung base, similar to the prior exam. Adjacent pleural thickening. Pleural-based metastatic disease is not excluded. Extensive airspace opacities bilaterally which may reflect pneumonia. Prominent interstitial changes are noted for which lymphangitic spread of disease is not excluded. Moderate to large pericardial effusion. Small volume of ascites. TECHNICAL DOCUMENTATION: Quality ID # 436: Final reports with documentation of one or more dose reduction techniques (e.g., Automated exposure control, adjustment of the mA and/or kV according to patient size, use of iterative reconstruction technique) copyright 2010 [employer]- All Rights Reserved Chest X-Ray 07/07/18 00:00 IMPRESSION: Increasing opacification in the right base. Right lower lobe consolidation. There may be some pleural effusion. There are now all multiple foci of increased opacification on the left suggesting multicentric pneumonia. Assessment & Plan - Diagnosis (1) Acute respiratory failure with hypoxia Is this a current diagnosis for this admission?: Yes Plan: Patient will be supported with nasal cannula oxygen or BiPAP respiratory support as needed to maintain an adequate oxygen saturation greater than 93%. She is willing to be intubated if required. 07/05/2018-patient came in with acute respiratory failure with hypoxia probably secondary to small bilateral pleural effusions and pericardial effusion which was moderate in size. Patient was started on Solu-Medrol 40 mg IV every 6 hours, BiPAP as needed. Presently she is on 5 L oxygen with pulse ox of 96%. pt on Xopenex nebulizations. Patient wants to be full code. ABG was requested around 8 AM today it is pending. Follow-up ABG for tomorrow requested. The CT scan indicates the possibility of pneumonia so she was presently on meropenem and Flagyl. Blood cultures and sputum cultures are pending. 07/06/2018-patient came in with acute respiratory failure with hypoxia initially needed BiPAP for a short while pulse ox is improved to 98% on 2 L. Patient is presently on IV Solu-Medrol 40 mg 2 every 6 hours, oxygen 4 L nasal cannula, Xopenex nebulizations. ABG done today pH is 7.4 PCO2 52 PO2 120 bicarb is 31. Plan is to continue the present management. Acute respiratory failure with hypoxia probably secondary to underlying bilateral pleural effusions and pneumonia. 07/07/2018-patient came in with acute respiratory failure with hypoxia. Initially requiring BiPAP. Now the pulse ox is 94% on room air. This shortness of breath probably secondary to pneumonia. Presently she is on IV antibiotic therapy. She is also on Xopenex nebulizations. Chest x-ray shows small bilateral pleural effusions. 07/08/2018-this 38-year-old female with breast cancer admitted with hypoxia found to be in acute respiratory failure. Initially requiring BiPAP. Now she is on oxygen 4 L via nasal cannula pulse ox is 99%. CT scan shows small bilateral pleural effusions along with moderate pericardial effusion. Chest x-ray was done yesterday shows may be worsening of the right lower lobe consolidation. Patient is comfortably in the bed no complaints. Blood cultures are negative so far. Patient is presently on IV meropenem and IV Flagyl. Acute respiratory failure with hypoxia probably secondary to hospital-acquired pneumonia. Combination of bilateral wheezing is present started on IV Solu-Medrol 40 mg every 12 hours. (2) Intractable pain Is this a current diagnosis for this admission?: Yes Plan: 07/05/2018 patient is complaining of diffused intractable pain across the chest wall. It is probably secondary to metastatic lesions from the primary breast cancer. She was started on morphine last night. Plan is to continue morphine IV as needed. 07/06/2018-patient was admitted with intractable pain of the chest wall probably secondary to metastasis to the chest wall secondary to primary breast cancer. She is getting morphine 5 mg IV every hour as needed. 07/07/2018 patient has intractable pain probably secondary to breast cancer with metastasis to the chest wall. She is getting morphine 5 mg IV every 2 hours as needed for chest pain. oxycontine was discontinued yesterday because patient is unable to take the p.o. medications. 07/08/2018-patient has intractable chest wall pain probably secondary to breast c ancer. She is receiving morphine 7.5 mg every 4 as needed. The pain is under control patient denies any pain. (3) Nonspecific interstitial pneumonitis Is this a current diagnosis for this admission?: Yes Plan: 07/05/2018-admission CT of the chest ruled out PE but there is a suggestion by the radiologist that probably she might have pneumonia due to increased interstitial markings it may be nonspecific interstitial pneumonitis as I mentioned above she was on meropenem and Flagyl. Blood cultures sputum cultures are pending. She is on Xopenex nebulizations, albuterol neb, IV Solu-Medrol. 07/06/2018 CT chest shows possible pneumonia. Blood cultures are negative. Patient is presently on meropenem and Flagyl. T-max is 97.2. Plan is to continue Xopenex nebulizations, albuterol nebulizations and IV steroids. 07/07/2018-CT chest shows pneumonia. Cultures are negative so far. Presently on meropenem and Flagyl. T-max is 98. Pulse ox are improved. She is on room air pulse ox 94%. Plan is to continue the present management. 07/08/2018-chest x-ray done yesterday indicates possible worsening of the right lower lobe consolidation. Patient is on meropenem and Flagyl. Blood cultures are negative. T-max is 98.1. Plan is to continue the present management. (4) Metastatic breast cancer Is this a current diagnosis for this admission?: Yes Plan: A hematology oncology consultation can be obtained with Dr. Reveles as needed. The patient has revoked her DNR status. 07/05/2018 patient has history of breast cancer with a metastasis to the brain sh e received whole body irradiation follow-up investigations suggest resolution of the brain metastasis. But patient may have metastasis to the chest wall. She is came in with severe intractable pains nausea and vomitings. Dr. Faustin is consulted 07/06/2018-patient has history of breast cancer with previous history of metastasis to the brain. After treatment and follow-up investigations brain me tastasis is resolved. She is having the severe chest pains this is a second admission for intractable chest wall pain secondary to probable breast cancer metastasis to the chest wall. Dr. Faustin is following the patient 07/07/2018-patient has history of breast cancer. Oncology is following the anthony bates. We will continue to follow Dr. Ahn's recommendations. 07/08/2018-patient has history of breast cancer with metastasis to the brain she gets a whole body irradiation brain metastasis resolved as per the follow-up investigations. But she is coming with severe chest wall pains probably sec ondary to metastasis. (5) Pericardial effusion Is this a current diagnosis for this admission?: Yes Plan: 07/05/2018-pericardial effusion was noticed during the last admission cardiology consult was done at that time and the effusion was moderate in size as per the security specialist is not compromising the heart function. We are going to continue to closely monitor the pericardial effusion. It may be secondary to metastasic lesions. 07/06/2018 CT scan shows moderate pericardial effusion she has echocardiogram was done in the last admission EF is normal. Patient is not in heart failure. On examination heart sounds are not muffled. Patient wants to be full code. Overall prognosis poor. 07/07/2018-chest CT shows moderate pericardial effusion. Patient is hemodynamically stable. Plan is to continue the present management. 07/08/2018 CT chest and echocardiogram shows moderate pericardial effusion hemodynamically stable. Cardiology was seen her last week. Plan is to continue the present management. - Time Time Spent with patient: 15-24 minutes Smoking Cessation Education: 3 to 10 minutes Medications reviewed and adjusted accordingly: Yes Anticipated discharge: Home
[2018-07-08] MEDS: SENNOSIDES/DOCUSATE 8.6-50 MG 1 EACH TABLET PO SCH (09:33)
[2018-07-08] MEDS ORDERED: METHYLPREDNISOLONE INJ 40 MG/1 ML SDV IV SCH (10:00)
[2018-07-08] MEDS ORDERED: TRAZODONE HCL 50 MG TABLET PO PRN (10:14)
--- NOTE | 2018-07-08 10:56 | PDOC DISCHARGE SUMMARY ---
General - Admit/Disc Date/PCP Admission Date/Primary Care Provider: 07/05/18 05:51 MARTINEZ AHN MD Discharge Date: 07/08/18 - pt signed AMA - Discharge Diagnosis (1) Acute respiratory failure with hypoxia Is this a current diagnosis for this admission?: Yes Summary: Patient will be supported with nasal cannula oxygen or BiPAP respiratory support as needed to maintain an adequate oxygen saturation greater than 93%. She is willing to be intubated if required. 07/05/2018-patient came in with acute respiratory failure with hypoxia probably secondary to small bilateral pleural effusions and pericardial effusion which was moderate in size. Patient was started on Solu-Medrol 40 mg IV every 6 hours, BiPAP as needed. Presently she is on 5 L oxygen with pulse ox of 96%. pt on Xopenex nebulizations. Patient wants to be full code. ABG was requested around 8 AM today it is pending. Follow-up ABG for tomorrow requested. The CT scan indicates the possibility of pneumonia so she was presently on meropenem and Flagyl. Blood cultures and sputum cultures are pending. 07/06/2018-patient came in with acute respiratory failure with hypoxia initially needed BiPAP for a short while pulse ox is improved to 98% on 2 L. Patient is presently on IV Solu-Medrol 40 mg 2 every 6 hours, oxygen 4 L nasal cannula, Xopenex nebulizations. ABG done today pH is 7.4 PCO2 52 PO2 120 bicarb is 31. Plan is to continue the present management. Acute respiratory failure with hypoxia probably secondary to underlying bilateral pleural effusions and pneumonia. 07/07/2018-patient came in with acute respiratory failure with hypoxia. Initially requiring BiPAP. Now the pulse ox is 94% on room air. This shortness of breath probably secondary to pneumonia. Presently she is on IV antibiotic therapy. She is also on Xopenex nebulizations. Chest x-ray shows small bilateral pleural effusions. 07/08/2018-this 38-year-old female with breast cancer admitted with hypoxia found to be in acute respiratory failure. Initially requiring BiPAP. Now she is on oxygen 4 L via nasal cannula pulse ox is 99%. CT scan shows small bilateral pleural effusions along with moderate pericardial effusion. Chest x-ray was done yesterday shows may be worsening of the right lower lobe consolidation. Patient is comfortably in the bed no complaints. Blood cultures are negative so far. Patient is presently on IV meropenem and IV Flagyl. Acute respiratory failure with hypoxia probably secondary to hospital-acquired pneumonia. Combination of bilateral wheezing is present started on IV Solu-Medrol 40 mg every 12 hours. 07/08/2018-Pt notified the nurse that she got a call from outside about her children, she has to leave the hospital to take care of them . Nurse Shabana and me explain to her leaving the hospital without completion of the treatment is not beneficial, requested her to stay in the hospital for further management because the x-ray was done yesterday shows worsening of the right lower lobe consolidation and she need to be on IV antibiotic therapy for a few more days, she is also wheezing extensively on examination of the chest this morning is to be on IV Solu-Medrol and a Xopenex nebulizations. Patient says she understood that needs to stay and need these medications but she has a family emergency is want to sign AMA and to take care of the family issues. She verbalized response that she appreciate our concern but decided to sign AMA and left the hospital. (2) Intractable pain Is this a current diagnosis for this admission?: Yes Summary: 07/05/2018 patient is complaining of diffused intractable pain across the chest wall. It is probably secondary to metastatic lesions from the primary breast cancer. She was started on morphine last night. Plan is to continue morphine IV as needed. 07/06/2018-patient was admitted with intractable pain of the chest wall probably secondary to metastasis to the chest wall secondary to primary breast cancer. She is getting morphine 5 mg IV every hour as needed. 07/07/2018 patient has intractable pain probably secondary to breast cancer with metastasis to the chest wall. She is getting morphine 5 mg IV every 2 hours as needed for chest pain. oxycontine was discontinued yesterday because patient is unable to take the p.o. medications. 07/08/2018-patient has intractable chest wall pain probably secondary to breast cancer. She is receiving morphine 7.5 mg every 4 as needed. The pain is under control patient denies any pain. 07/08/2018 10:53 AM patient signed the AMA and left the hospital. (3) Nonspecific interstitial pneumonitis Is this a current diagnosis for this admission?: Yes Summary: 07/05/2018-admission CT of the chest ruled out PE but there is a suggestion by the radiologist that probably she might have pneumonia due to increased interstitial markings it may be nonspecific interstitial pneumonitis as I mentioned above she was on meropenem and Flagyl. Blood cultures sputum cultures are pending. She is on Xopenex nebulizations, albuterol neb, IV Solu-Medrol. 07/06/2018 CT chest shows possible pneumonia. Blood cultures are negative. Patient is presently on meropenem and Flagyl. T-max is 97.2. Plan is to continue Xopenex nebulizations, albuterol nebulizations and IV steroids. 07/07/2018-CT chest shows pneumonia. Cultures are negative so far. Presently on meropenem and Flagyl. T-max is 98. Pulse ox are improved. She is on room air pulse ox 94%. Plan is to continue the present management. 07/08/2018-chest x-ray done yesterday indicates possible worsening of the right lower lobe consolidation. Patient is on meropenem and Flagyl. Blood cultures are negative. T-max is 98.1. Plan is to continue the present management. 07/08/2018 10:53 AM despite our best efforts to convince the patient's to stay in the hospital to complete the course of antibiotic therapy patient left the hospital by signing AMA. (4) Metastatic breast cancer Is this a current diagnosis for this admission?: Yes Summary: A hematology oncology consultation can be obtained with Dr. Reveles as needed. The patient has revoked her DNR status. 07/05/2018 patient has history of breast cancer with a metastasis to the brain she received whole body irradiation follow-up investigations suggest resolution of the brain metastasis. But patient may have metastasis to the chest wall. She is came in with severe intractable pains nausea and vomitings. Dr. Faustin is consulted 07/06/2018-patient has history of breast cancer with previous history of metastasis to the brain. After treatment and follow-up investigations brain metastasis is resolved. She is having the severe chest pains this is a second admission for intractable chest wall pain secondary to probable breast cancer metastasis to the chest wall. Dr. Faustin is following the patient 07/07/2018-patient has history of breast cancer. Oncology is following the patient. We will continue to follow Dr. Ahn's recommendations. 07/08/2018-patient has history of breast cancer with metastasis to the brain she gets a whole body irradiation brain metastasis resolved as per the follow-up investigations. But she is coming with severe chest wall pains probably secondary to metastasis. 07/08/2018-patient has history of breast cancer with metastasis to the brain follow-up investigations after his radiation suggest resolution but she comes in with severe chest pains twice in the last 1 week probably secondary to metastasis to the chest wall. Patient is following up with Dr. Ahn as an outpatient. He left the hospital today. (5) Pericardial effusion Is this a current diagnosis for this admission?: Yes Summary: 07/05/2018-pericardial effusion was noticed during the last admission cardiology consult was done at that time and the effusion was moderate in size as per the edger runner is not compromising the heart function. We are going to continue to closely monitor the pericardial effusion. It may be secondary to metastasic lesions. 07/06/2018 CT scan shows moderate pericardial effusion she has echocardiogram was done in the last admission EF is normal. Patient is not in heart failure. On examination heart sounds are not muffled. Patient wants to be full code. Overall prognosis poor. 07/07/2018-chest CT shows moderate pericardial effusion. Patient is hemodynamically stable. Plan is to continue the present management. 07/08/2018 CT chest and echocardiogram shows moderate pericardial effusion hemodynamically stable. Cardiology was seen her last week. Plan is to continue the present management. 07/08/[address] and echocardiogram shows moderate pericardial effusion, but hemodynamically stable. Patient's left the hospital by signing AMA. - Additional Information Resuscitation Status: Full Code Home Medications: Esomeprazole Magnesium [Nexium] 20 mg PO DAILY 06/30/18 Nortriptyline HCl [Pamelor 10 mg Capsule] 10 mg PO QHS 06/30/18 Oxycodone HCl [Oxy-Ir 5 mg Tablet] 40 mg PO Q4HP PRN 06/30/18 Ondansetron [Zofran Odt 4 mg Tablet] 8 mg PO Q8HP PRN 07/05/18 History of Present Illness History of Present Illness: EFFIE LOUIS is a 38 year old female with a 6-hour history of dyspnea. She admits that she was just discharged from the hospital on 07/03/2018 where she had been admitted for dyspnea related to her metastatic breast cancer also accompanied by intractable pain. Her current symptoms are very similar in that she has worsening dyspnea over the last 6 hours to the point where it is now severe and her diffuse pain has also continued to increase along with the dyspnea and it too is now severe. She tried increasing her O2 at home from 2 L/min to 3 L/min without much improvement in her dyspnea. She also noted a subjective fever at home prior to coming to the emergency room. She did get some relief of her dyspnea with nebulizer treatments and Solu-Medrol in the ambulance. In the emergency room she was found to have labored breathing and hypoxia without oxygen support of at least 4 L/min and even then her increased work of breathing led to her being placed on BiPAP. She will be admitted to the hospital for pain control and respiratory support. She did announce that she wanted to change her status from DNR/DNI to full code prior to being placed on BiPAP. Physical Exam Vital Signs: Temp Pulse Resp BP Pulse Ox 98.1 F 119 H 18 110/85 99 07/08/18 07:57 07/08/18 07:58 07/08/18 07:58 07/08/18 07:57 07/08/18 07:58 Intake & Output 07/07/18 07/08/18 07/09/18 06:59 06:59 06:59 Intake Total 1230 1981 Balance 1230 1981 Weight 73.6 kg 73.9 kg General appearance: PRESENT: no acute distress Head exam: PRESENT: atraumatic Eye exam: PRESENT: PERRLA Mouth exam: PRESENT: moist Neck exam: ABSENT: carotid bruit, JVD, lymphadenopathy, thyromegaly Respiratory exam: PRESENT: decreased breath sounds, wheezes Cardiovascular exam: PRESENT: tachycardia GI/Abdominal exam: PRESENT: normal bowel sounds, soft. ABSENT: distended, guarding, mass, organolmegaly, rebound, tenderness Extremities exam: PRESENT: full ROM. ABSENT: calf tenderness, clubbing, pedal edema Neurological exam: PRESENT: alert, awake, oriented to person, oriented to place, oriented to time, oriented to situation, CN II-XII grossly intact. ABSENT: motor sensory deficit Psychiatric exam: PRESENT: appropriate affect, normal mood. ABSENT: homicidal ideation, suicidal ideation Results Laboratory Results: 07/08/18 05:10 07/08/18 05:10 07/08/18 07/08/18 05:10 05:10 WBC 8.1 RBC 3.20 L Hgb 10.6 L Hct 31.7 L MCV 99 H MCH 33.1 MCHC 33.4 RDW 16.8 H Plt Count 312 Seg Neutrophils % 71.0 Lymphocytes % 13.9 Monocytes % 14.1 H Eosinophils % 0.7 Basophils % 0.3 Absolute Neutrophils 5.8 Absolute Lymphocytes 1.1 Absolute Monocytes 1.2 Absolute Eosinophils 0.1 Absolute Basophils 0.0 Sodium 137.5 Potassium 4.0 Chloride 97 L Carbon Dioxide 33 H Anion Gap 8 BUN 14 Creatinine 0.77 Est GFR ( Amer) > 60 Est GFR (Non-Af Amer) > 60 Glucose 91 Calcium 8.2 L Magnesium 2.1 Total Bilirubin 0.4 AST 42 H ALT 75 H Alkaline Phosphatase 119 Total Protein 5.4 L Albumin 3.1 L 07/06/18 05:30 NT-Pro-B Natriuret Pep 114 Impressions: Abdomen/Pelvis CT 07/05/18 03:21 IMPRESSION: Negative for pulmonary embolus, thoracic aortic aneurysm, or dissection. Small bilateral pleural effusions with a loculated thick walled pleural fluid collection along the lateral right lung base, similar to the prior exam. Adjacent pleural thickening. Pleural-based metastatic disease is not excluded. Extensive airspace opacities bilaterally which may reflect pneumonia. Prominent interstitial changes are noted for which lymphangitic spread of disease is not excluded. Moderate to large pericardial effusion. Small volume of ascites. TECHNICAL DOCUMENTATION: Quality ID # 436: Final reports with documentation of one or more dose reduction techniques (e.g., Automated exposure control, adjustment of the mA and/or kV according to patient size, use of iterative reconstruction technique) copyright 2011 [employer]- All Rights Reserved Chest/Abdomen CTA 07/05/18 03:21 IMPRESSION: Negative for pulmonary embolus, thoracic aortic aneurysm, or dissection. Small bilateral pleural effusions with a loculated thick walled pleural fluid collection along the lateral right lung base, similar to the prior exam. Adjacent pleural thickening. Pleural-based metastatic disease is not excluded. Extensive airspace opacities bilaterally which may reflect pneumonia. Prominent interstitial changes are noted for which lymphangitic spread of disease is not excluded. Moderate to large pericardial effusion. Small volume of ascites. TECHNICAL DOCUMENTATION: Quality ID # 436: Final reports with documentation of one or more dose reduction techniques (e.g., Automated exposure control, adjustment of the mA and/or kV according to patient size, use of iterative reconstruction technique) copyright 2011 [employer]- All Rights Reserved Chest X-Ray 07/07/18 00:00 IMPRESSION: Increasing opacification in the right base. Right lower lobe consolidation. There may be some pleural effusion. There are now all multiple foci of increased opacification on the left suggesting multicentric pneumonia. Qualifiers - * PATIENT BEING DISCHARGED WITH ANY OF THE FOLLOWING DIAGNOSIS: No VTE patient discharged on overlapping Therapy?: No
== END 2018-07-08 10:55 | disposition left against medical advice (07) | DRG 189 ==
LOC: ER 03:05 → EH 05:51 → 3N 07-06 03:25
PROVIDERS: ADMIT Emergency Medicine; ATTEND Emergency Medicine
PROC: 5A09457 Assistance with Respiratory Ventilation, 24-96 Consecutive Hours, Continuous Positive Airway Pressure (ICD-10-PCS; principal; 2018-07-05)
DX: J96.01 Acute respiratory failure with hypoxia (principal); J15.9 Unspecified bacterial pneumonia; C79.89 Secondary malignant neoplasm of other specified sites; I31.3 Pericardial effusion (noninflammatory); J90 Pleural effusion, not elsewhere classified; G89.3 Neoplasm related pain (acute) (chronic); K59.03 Drug induced constipation; T40.2X5A Adverse effect of other opioids, initial encounter; C50.912 Malignant neoplasm of unspecified site of left female breast; C50.919 Malignant neoplasm of unspecified site of unspecified female breast; F41.9 Anxiety disorder, unspecified; Z85.841 Personal history of malignant neoplasm of brain; Z85.3 Personal history of malignant neoplasm of breast; Z90.11 Acquired absence of right breast and nipple; K21.9 Gastro-esophageal reflux disease without esophagitis; M79.7 Fibromyalgia; Z92.3 Personal history of irradiation; Z99.81 Dependence on supplemental oxygen; Z90.49 Acquired absence of other specified parts of digestive tract
CPT/HCPCS: 36415; 71046; 71275; 74177; 80048; 80053; 82803; 83735; 83880; 85025; 87040; 94640; 94660; 96374; 96376; 99285; J0456; J1170; J1652; J2060; J2185; J2270; J2405; J2550; J2920; J3490; S0164

== ENCOUNTER 2018-07-09 03:57 | Inpatient (IN) | payer MEDICAID ==
[2018-07-09] MEDS ORDERED: FENTANYL CITRATE INJ/PF 100 MCG/2 ML AMPUL IV ONE (04:12)
--- NOTE | 2018-07-09 04:13 | ER Document Report ---
ED Respiratory Problem - General Chief Complaint: Shortness Of Breath Stated Complaint: SHORTNESS OF BREATH Time Seen by Provider: 07/09/18 04:06 Notes: Patient is a 38-year-old female with a history of lung and brain cancer that comes to the emergency department for chief complaint of difficulty breathing. She was hospitalized, left this morning to go home and "take care of family business", states that there is now a family member at home to take care of it, she states she started getting chills and increased difficulty breathing so she returned to the emergency department. She denies history of asthma or COPD. She is on home oxygen, used to be 2-3 liters, states she was using 4 L at home. She is currently on Chemotherapy for breast cancer with metastasis to lung and brain with Dr. Ahn. She is full code. TRAVEL OUTSIDE OF THE [place] IN LAST 30 DAYS: No - Related Data Allergies/Adverse Reactions: Adhesive Bandage * [Adhesive Bandage] Allergy (Mild, Verified 06/30/18 11:25) Generalized rash adhesive tape [Adhesive Tape] Allergy (Mild, Verified 06/30/18 11:25) Generalized rash bologne Allergy (Uncoded 07/06/18 03:56) Past Medical History - General Information source: Patient - Social History Smoking Status: Never Smoker Drug Abuse: None Lives with: Family Family History: DM - Past Medical History Cardiac Medical History: Denies: Hx Coronary Artery Disease, Hx Heart Attack, Hx Hypertension Pulmonary Medical History: Reports: Hx Asthma - TEENAGER, Hx Pneumonia - recently d/c'd 05/10/17, Hx Respiratory Failure Denies: Hx Bronchitis, Hx COPD, Hx Tuberculosis Neurological Medical History: Reports: Hx Migraine, Hx Seizures. Denies: Hx Cerebrovascular Accident Endocrine Medical History: Denies: Hx Diabetes Mellitus Type 1, Hx Diabetes Mellitus Type 2 Renal/ Medical History: Denies: Hx Peritoneal Dialysis Malignancy Medical History: Reports: Hx Brain Cancer, Hx Breast Cancer - right mastectomy. With metastases to brain and lungs and pleural fluid, Hx Lung Cancer GI Medical History: Reports: Hx Gastroesophageal Reflux Disease. Denies: Hx Cirrhosis, Hx Hepatitis, Hx Hiatal Hernia Musculoskeletal Medical History: Denies Hx Arthritis, Reports Hx Fibromyalgia Skin Medical History: Denies Hx Eczema, Denies Hx Psoriasis Psychiatric Medical History: Denies: Hx Depression Infectious Medical History: Denies: Hx Hepatitis Past Surgical History: Reports: Hx Breast Surgery - R mastectomy/lumpectomy, Hx Section - x2, Hx Cholecystectomy, Hx Mastectomy - Right right mastectomy with axillary node dissection, Hx Orthopedic Surgery, Hx Tonsillectomy, Hx Tubal Ligation, Hx Vascular Surgery - Left chest wall port - Immunizations Hx Diphtheria, Pertussis, Tetanus Vaccination: Yes Hx Pneumococcal Vaccination: 04/30/13 Review of Systems - Review of Systems Constitutional: See HPI EENT: No symptoms reported Cardiovascular: No symptoms reported Respiratory: See HPI Gastrointestinal: No symptoms reported Genitourinary: No symptoms reported Female Genitourinary: No symptoms reported Musculoskeletal: No symptoms reported Skin: No symptoms reported Hematologic/Lymphatic: No symptoms reported Neurological/Psychological: No symptoms reported Physical Exam - Vital signs Vitals: Resp Pulse Ox 36 H 95 07/09/18 04:10 07/09/18 04:10 - Notes Notes: GENERAL: Appears to be in distress, anxious HEAD: Normocephalic, atraumatic. EYES: Pupils equal, round, and reactive to light. Extraocular movements intact. ENT: Oral mucosa moist, tongue midline. Oropharynx unremarkable. Airway patent. Nares patent, no nasal septal hematoma, TM's intact. NECK: Full range of motion. Supple. Trachea midline. LUNGS: Decreased breath sounds, rales present, rhonchi scattered throughout. Patient tachypneic with respiratory distress and labored breathing. HEART: Tachycardic, normal rhythm, no murmur ABDOMEN: Minimal generalized abdominal tenderness. Non-distended. Bowel sounds present in all 4 quadrants. GENITOURINARY: Deferred EXTREMITIES: Moves all 4 extremities spontaneously. No edema, normal radial and dorsalis pedis pulses bilaterally. No cyanosis. BACK: no cervical, thoracic, lumbar midline tenderness. No saddle anesthesia, normal distal neurovascular exam. NEUROLOGICAL: Alert and oriented x3. Normal speech. [cranial nerves II through XII grossly intact]. PSYCH: Somewhat anxious SKIN: Warm, dry, normal turgor. No rashes or lesions noted. Course - Re-evaluation Re-evalutation: Patient in respiratory distress with labored breathing, tachypnea, she has rhonchi throughout her lungs, she has received 2 duo nebs and Solu-Medrol by EMS. She does not have a history of asthma, COPD, I suspect underlying either pleural effusion or pneumonia. Patient 94% on 4 L nasal cannula which is higher than her usual, she was taken off this briefly to be transitioned to BiPAP because of ongoing respiratory distress and she immediately desaturated to 85% on room air before being placed on BiPAP. On BiPAP patient has been reevaluated and she is much more comfortable, respir atory distress has resolved. 07/09/18 Patient remains tachycardic. She has no significant improvement on x-ray which shows pleural effusions, multiple consolidations. Patient appears to have been treated with meropenem while here and the left during the day, I believe she has had the dose for today. Patient is full code on preference, will require admission for pleural effusions, pneumonia, tachycardia, respiratory distress, requiring BiPAP therapy. Discussed with patient, she states agreement with plan. Discussed with Dr. Spencer, internal medicine, patient will be admitted to the [facility] full admission. - Vital Signs Vital signs: Temp Pulse Resp BP Pulse Ox 109 H 20 97 07/09/18 07:39 07/09/18 07:39 07/09/18 07:39 - Laboratory Result Diagrams: 07/09/18 04:25 07/09/18 04:25 Laboratory results interpreted by me: 07/09/18 07/09/18 07/09/18 04:25 04:25 04:25 WBC 11.4 H RBC 3.35 L Hgb 10.9 L Hct 33.0 L MCV 99 H RDW 16.8 H Lymphocytes % 12.9 L Absolute Neutrophils 8.7 H VBG HCO3 32.6 H Carbon Dioxide 33 H AST 62 H ALT 77 H Discharge - Discharge Clinical Impression: Respiratory distress, Pleural effusion Lung cancer Qualifiers: Laterality: unspecified laterality Lung location: unspecified part of lung Qualified Code(s): C34.90 - Malignant neoplasm of unspecified part of unspecified bronchus or lung Pneumonia Qualifiers: Pneumonia type: due to unspecified organism Laterality: unspecified laterality Lung location: unspecified part of lung Qualified Code(s): J18.9 - Pneumonia, unspecified organism Condition: Serious Disposition: ADMITTED INPATIENT Admitting Provider: Hospitalist Unit Admitted: [facility]
[2018-07-09 04:35] LABS: VENOUS BLOOD BASE EXCESS 5.9 mmol/L; VENOUS BLOOD HCO3 32.6 mmol/L (20-32); VENOUS BLOOD PH 7.37 (7.30-7.42)
[2018-07-09 04:38] LABS: ABSOLUTE BASOPHILS # (AUTO) 0.1 10^3/uL (0.0-0.2); ABSOLUTE LYMPHOCYTES (AUTO) 1.5 10^3/uL (0.5-4.7); ABSOLUTE MONOCYTES (AUTO) 1.2 10^3/uL (0.1-1.4); ABSOLUTE NEUT (AUTO) 8.7 10^3/uL (1.7-8.2); BASOPHILS % (AUTO) 0.7 % (0-2); EOSINOPHILS % (AUTO) 0.4 % (0-6); HEMOGLOBIN 10.9 g/dL (12.0-15.5); LYMPHOCYTES % (AUTO) 12.9 % (13-45); MEAN CORPUSCULAR HEMOGLOBIN 32.6 pg (27.0-33.4); MEAN CORPUSCULAR HGB CONC 33.1 g/dL (32.0-36.0); MEAN CORPUSCULAR VOLUME 99 fl (80-97); MONOCYTES % (AUTO) 10.3 % (3-13); PLATELET COUNT 312 10^3/uL (150-450); RED BLOOD COUNT 3.35 10^6/uL (3.72-5.28); RED CELL DISTRIBUTION WIDTH 16.8 % (11.5-14.0); SEGMENTED NEUTROPHILS % (AUTO) 75.7 % (42-78); TOTAL CELLS COUNTED % (AUTO) 100 %; WHITE BLOOD COUNT 11.4 10^3/uL (4.0-10.5)
--- NOTE | 2018-07-09 04:57 | RADIOLOGY REPORT (SQ) ---
EXAM DESCRIPTION: XR CHEST 1 VIEW COMPLETED DATE/TME: 07/09/2018 04:10 CLINICAL HISTORY: 38 years Female, shortness of breath COMPARISON: One day prior. NUMBER OF VIEWS/TECHNIQUE: 1/AP FINDINGS: Moderate mixed airspace and interstitial opacities. Large opacity-effusion of the right lower and mid hemithorax. Adequate appearing left jugular central line. Moderately enlarged cardiac silhouette. No pneumothorax. Stable bony thorax. IMPRESSION: No significant change.
[2018-07-09 04:59] LABS: ALANINE AMINOTRANSFERASE 77 U/L (9-52); ALBUMIN 3.7 g/dL (3.5-5.0); ALKALINE PHOSPHATASE 117 U/L (38-126); ANION GAP 8 (5-19); ASPARTATE AMINO TRANSFERASE 62 U/L (14-36); BILIRUBIN,DIRECT 0.3 mg/dL (0.0-0.4); BILIRUBIN,TOTAL 0.6 mg/dL (0.2-1.3); BLOOD UREA NITROGEN 13 mg/dL (7-20); CALCIUM 8.6 mg/dL (8.4-10.2); CARBON DIOXIDE 33 mmol/L (22-30); CHLORIDE 98 mmol/L (98-107); GLUCOSE 109 mg/dL (75-110); POTASSIUM 4.3 mmol/L (3.6-5.0); SODIUM 138.7 mmol/L (137-145); TOTAL PROTEIN 6.7 g/dL (6.3-8.2)
[2018-07-09] MEDS ORDERED: OXYCODONE HCL IR 5 MG TABLET PO PRN (05:34)
[2018-07-09] MEDS ORDERED: ACETAMINOPHEN 325 MG TABLET PO PRN (05:36)
[2018-07-09] MEDS ORDERED: IPRATROPIUM/ALBUTEROL 0.5-2.5 MG/3 ML AMPUL NEB PRN (05:36)
[2018-07-09] MEDS ORDERED: DIPHENHYDRAMINE HCL 50 MG/ML VIAL IV PRN (05:41)
[2018-07-09] MEDS ORDERED: VANCOMYCIN HCL 0 MG in DEXTROSE 5%-WATER 250 ML IV NR (05:45)
[2018-07-09] MEDS ORDERED: AMPICILLIN SOD/SULBACTAM 3 GM VIAL IV PRN (05:53)
[2018-07-09] MEDS ORDERED: VANCOMYCIN HCL INJ 1000 MG VIAL IV PRN (05:53)
[2018-07-09] MEDS ORDERED: VANCOMYCIN HCL 1,000 MG in DEXTROSE 5%-WATER 250 ML IV ONE ×2 (06:00→07:00)
[2018-07-09] MEDS: AMPICILLIN SODIUM/SULBACTAM NA 3 GM in NORMAL SALINE 100 ML IV SCH ×4 (06:07→23:45)
[2018-07-09] MEDS: LANSOPRAZOLE 15 MG TAB.RAP.DR PO SCH (06:08)
[2018-07-09] MEDS: HEPARIN SOD (PORCINE) 5,000 UNIT/ML 1 ML SYRINGE SUBCUT SCH ×3 (06:08→21:08)
[2018-07-09] MEDS: HYDROMORPHONE HCL INJ/PF 2 MG/ML AMPULE IV PRN ×5 (06:13→21:08)
--- NOTE | 2018-07-09 06:59 | PDOC H&P ---
History of Present Illness Admission Date/PCP: 07/09/18 05:56 MARTINEZ MORATAYA MD Patient complains of: Shortness of breath History of Present Illness: EFFIE LOUIS is a 38 year old female with a past medical history of stage IV breast cancer with metastasis to the brain, stomach and recurrent malignant pleural effusions. She presents 12 hours after acute care hospitalization AMA for acute on chronic respiratory failure with postobstructive pneumonia. Patient presents with severe respiratory distress and intractable pain. Her workup is otherwise unchanged from 24 hours ago. But remains in severe respiratory distress requiring BiPAP and IV Dilaudid dependent. She is also exceptionally depressed and crying. Past Medical History Cardiac Medical History: Denies: Coronary Artery Disease, Myocardial Infarction, Hypertension Pulmonary Medical History: Reports: Asthma - TEENAGER, Pneumonia - recently d/c'd 05/10/17, Respiratory Failure Denies: Bronchitis, Chronic Obstructive Pulmonary Disease (COPD), Tuberculosis Neurological Medical History: Reports: Migraine, Seizures Endocrine Medical History: Denies: Diabetes Mellitus Type 1, Diabetes Mellitus Type 2 Malignancy Medical History: Reports: Brain Cancer, Breast Cancer - right mastectomy. With metastases to brain and lungs and pleural fluid, Lung Cancer GI Medical History: Reports: Gastroesophageal Reflux Disease Denies: Cirrhosis, Hepatitis, Hiatal Hernia Musculoskeltal Medical History: Reports: Fibromyalgia Denies: Arthritis Skin Medical History: Denies: Eczema, Psoriasis Psychiatric Medical History: Denies: Depression Hematology: Denies: Anemia, Sickle Cell Disease, Bleeding Tendencies Past Surgical History Past Surgical History: Reports: Amputation, Section - x2, Cholecystectomy, Mastectomy - Right right mastectomy with axillary node dissection, Orthopedic Surgery, Tonsillectomy, Tubal Ligation, Vascular Surgery - Left chest wall port Social History Information Source: Patient Lives with: Spouse/Significant other Smoking Status: Unknown if Ever Smoked Frequency of Alcohol Use: Occasional Hx Recreational Drug Use: No Drugs: Marijuana Hx Prescription Drug Abuse: No - Advance Directive Resuscitation Status: Full Code Family History Family History: DM Parental Family History Reviewed: Yes Children Family History Reviewed: Yes Sibling(s) Family History Reviewed.: Yes Medication/Allergy Home Medications: Esomeprazole Magnesium [Nexium] 20 mg PO DAILY 06/30/18 Nortriptyline HCl [Pamelor 10 mg Capsule] 10 mg PO QHS 06/30/18 Oxycodone HCl [Oxy-Ir 5 mg Tablet] 40 mg PO Q4HP PRN 06/30/18 Ondansetron [Zofran Odt 4 mg Tablet] 8 mg PO Q8HP PRN 07/05/18 Allergies/Adverse Reactions: Adhesive Bandage * [Adhesive Bandage] Allergy (Mild, Verified 06/30/18 11:25) Generalized rash adhesive tape [Adhesive Tape] Allergy (Mild, Verified 06/30/18 11:25) Generalized rash bologne Allergy (Uncoded 07/06/18 03:56) Review of Systems Constitutional: PRESENT: anorexia, fatigue, weakness, weight loss. ABSENT: chills, fever(s), headache(s), weight gain Eyes: ABSENT: visual disturbances Ears: ABSENT: hearing changes Cardiovascular: PRESENT: as per HPI, chest pain, dyspnea on exertion, orthropnea, palpitations Respiratory: PRESENT: as per HPI, cough, dyspnea. ABSENT: sputum Gastrointestinal: ABSENT: abdominal pain, constipation, diarrhea, hematemesis, hematochezia, nausea, vomiting Genitourinary: ABSENT: dysuria, hematuria Musculoskeletal: ABSENT: joint swelling Integumentary: ABSENT: rash, wounds Neurological: ABSENT: abnormal gait, abnormal speech, confusion, dizziness, focal weakness, syncope Psychiatric: ABSENT: anxiety, depression, homidical ideation, suicidal ideation Endocrine: ABSENT: cold intolerance, heat intolerance, polydipsia, polyuria Hematologic/Lymphatic: ABSENT: easy bleeding, easy bruising Physical Exam Vital Signs: Temp Pulse Resp BP Pulse Ox 36 H 95 07/09/18 04:10 07/09/18 04:10 General appearance: PRESENT: cooperative, severe distress Head exam: PRESENT: atraumatic, normocephalic Eye exam: PRESENT: conjunctiva pink, EOMI, PERRLA. ABSENT: scleral icterus Ear exam: PRESENT: normal external ear exam Mouth exam: PRESENT: moist, tongue midline Neck exam: ABSENT: carotid bruit, JVD, lymphadenopathy, thyromegaly Respiratory exam: PRESENT: accessory muscle use, decreased breath sounds, prolonged expiratory phas, rales, tachypnea Cardiovascular exam: PRESENT: RRR, tachycardia. ABSENT: diastolic murmur, rubs, systolic murmur Pulses: PRESENT: normal dorsalis pedis pul Vascular exam: PRESENT: normal capillary refill GI/Abdominal exam: PRESENT: normal bowel sounds, soft. ABSENT: distended, guard ing, mass, organolmegaly, rebound, tenderness Rectal exam: PRESENT: deferred Extremities exam: PRESENT: full ROM. ABSENT: calf tenderness, clubbing, pedal edema Neurological exam: PRESENT: alert, awake, oriented to person, oriented to place, oriented to time, oriented to situation, CN II-XII grossly intact. ABSENT: motor sensory deficit Psychiatric exam: PRESENT: appropriate affect, normal mood. ABSENT: homicidal ideation, suicidal ideation Skin exam: PRESENT: dry, intact, warm. ABSENT: cyanosis, rash Results Laboratory Results: 07/09/18 04:25 07/09/18 04:25 07/09/18 07/09/18 07/09/18 04:25 04:25 04:25 WBC 11.4 H RBC 3.35 L Hgb 10.9 L Hct 33.0 L MCV 99 H MCH 32.6 MCHC 33.1 RDW 16.8 H Plt Count 312 Seg Neutrophils % 75.7 Lymphocytes % 12.9 L Monocytes % 10.3 Eosinophils % 0.4 Basophils % 0.7 Absolute Neutrophils 8.7 H Absolute Lymphocytes 1.5 Absolute Monocytes 1.2 Absolute Eosinophils 0.0 Absolute Basophils 0.1 VBG pH VBG pCO2 VBG HCO3 VBG Base Excess Sodium 138.7 Potassium 4.3 Chloride 98 Carbon Dioxide 33 H Anion Gap 8 BUN 13 Creatinine 0.78 Est GFR ( Amer) > 60 Est GFR (Non-Af Amer) > 60 Glucose 109 Lactic Acid 2.1 Calcium 8.6 Total Bilirubin 0.6 AST 62 H ALT 77 H Alkaline Phosphatase 117 Total Protein 6.7 Albumin 3.7 07/09/18 04:25 WBC RBC Hgb Hct MCV MCH MCHC RDW Plt Count Seg Neutrophils % Lymphocytes % Monocytes % Eosinophils % Basophils % Absolute Neutrophils Absolute Lymphocytes Absolute Monocytes Absolute Eosinophils Absolute Basophils VBG pH 7.37 VBG pCO2 58.0 VBG HCO3 32.6 H VBG Base Excess 5.9 Sodium Potassium Chloride Carbon Dioxide Anion Gap BUN Creatinine Est GFR ( Amer) Est GFR (Non-Af Amer) Glucose Lactic Acid Calcium Total Bilirubin AST ALT Alkaline Phosphatase Total Protein Albumin Impressions: Chest X-Ray 07/09/18 04:10 IMPRESSION: No significant change. Assessment & Plan - Diagnosis (1) Acute respiratory failure with hypoxia Is this a current diagnosis for this admission?: Yes Plan: BiPAP dependent at this point given evolution of lung cancer with effusions and post obstructive pneumonia. Hospice consulted (2) Lung cancer Qualifiers: Laterality: unspecified laterality Lung location: unspecified part of lung Qualified Code(s): C34.90 - Malignant neoplasm of unspecified part of unspecified bronchus or lung Is this a current diagnosis for this admission?: Yes Plan: Supportive care, consider oncology consult. Hospice consult (3) Pneumonia Qualifiers: Pneumonia type: due to unspecified organism Laterality: unspecified laterality Lung location: unspecified part of lung Qualified Code(s): J18.9 - Pneumonia, unspecified organism Is this a current diagnosis for this admission?: Yes Plan: Empiric antibiotics, albuterol, Atrovent, incentive spirometry. Follow-up CBC and blood culture - Time Time Spent: 50 to 70 Minutes - Inpatient Certification Medical Necessity: Need Close Monitoring Due to Risk of Patient Decompensation
[2018-07-09] MEDS: IPRATROPIUM/ALBUTEROL 0.5-2.5 MG/3 ML AMPUL NEB SCH ×3 (07:39→19:26)
--- NOTE | 2018-07-09 07:57 | EKG REPORT ---
SEVERITY:- BORDERLINE ECG - SINUS TACHYCARDIA PROBABLE LEFT ATRIAL ABNORMALITY LOW VOLTAGE THROUGHOUT : Confirmed by: Lakhwinder George MD 09-Jul-2018 07:56:28
[2018-07-09] MEDS ORDERED: ONDANSETRON HCL INJ/PF 4 MG/2 ML SDV IV PRN (10:01)
[2018-07-09 10:39] LABS: A TYPE INFLUENZA AG NEGATIVE (NEGATIVE); B INFLUENZA AG NEGATIVE (NEGATIVE)
[2018-07-09] MEDS: MODAFINIL 100 MG TABLET PO SCH (10:48)
[2018-07-09] MEDS: PROMETHAZINE HCL INJ 25 MG/1 ML VIAL IV PRN ×2 (12:57→19:56)
--- NOTE | 2018-07-09 15:12 | PDOC PROGRESS REPORT ---
Subjective Progress Note for:: 07/09/18 Subjective:: Patient seen resting in bed. She is awake, alert, oriented x3. She is complaining of pain with inspiration. She continues to have cough. She states she has continued chronic pain in her chest at baseline. She had some nausea and vomiting earlier which improved with Zofran. She is able to drink at the present time. She complains of chronic generalized pain as well. She denies any fevers or chills overnight. She denies any other complaints at the present time. He apparently left AGAINST MEDICAL ADVICE yesterday morning due to family emergency. She had been hospitalized for pneumonia, respiratory failure and increasing pain. Reason For Visit: STAGE 4 BREAST CA C METS,PNEUMONIA Physical Exam Vital Signs: Temp Pulse Resp BP Pulse Ox 97.2 F 77 20 117/81 98 07/09/18 11:15 07/09/18 11:15 07/09/18 11:15 07/09/18 11:15 07/09/18 11:15 Intake & Output 07/08/18 07/09/18 07/10/18 06:59 06:59 06:59 Intake Total 350 Balance 350 Weight 72.3 kg General appearance: PRESENT: no acute distress, well-developed, well-nourished Head exam: PRESENT: atraumatic, normocephalic Eye exam: PRESENT: conjunctiva pink, EOMI, PERRLA. ABSENT: scleral icterus Ear exam: PRESENT: normal external ear exam Mouth exam: PRESENT: moist, tongue midline Neck exam: ABSENT: carotid bruit, JVD, lymphadenopathy, thyromegaly Respiratory exam: PRESENT: crackles - Right base, symmetrical, unlabored. ABSENT: rales, rhonchi, wheezes Cardiovascular exam: PRESENT: RRR. ABSENT: diastolic murmur, rubs, systolic murmur Pulses: PRESENT: normal dorsalis pedis pul Vascular exam: PRESENT: normal capillary refill GI/Abdominal exam: PRESENT: normal bowel sounds, soft. ABSENT: distended, guarding, mass, organolmegaly, rebound, tenderness Rectal exam: PRESENT: deferred Extremities exam: PRESENT: full ROM. ABSENT: calf tenderness, clubbing, pedal edema Musculoskeletal exam: PRESENT: ambulatory, full ROM Neurological exam: PRESENT: alert, awake, oriented to person, oriented to place, oriented to time, oriented to situation, CN II-XII grossly intact. ABSENT: motor sensory deficit Psychiatric exam: PRESENT: anxious Focused psych exam: PRESENT: restlessness Skin exam: PRESENT: dry, intact, warm. ABSENT: cyanosis, rash Results Laboratory Results: 07/09/18 04:25 07/09/18 04:25 07/09/18 07/09/18 07/09/18 04:25 04:25 04:25 WBC 11.4 H RBC 3.35 L Hgb 10.9 L Hct 33.0 L MCV 99 H MCH 32.6 MCHC 33.1 RDW 16.8 H Plt Count 312 Seg Neutrophils % 75.7 Lymphocytes % 12.9 L Monocytes % 10.3 Eosinophils % 0.4 Basophils % 0.7 Absolute Neutrophils 8.7 H Absolute Lymphocytes 1.5 Absolute Monocytes 1.2 Absolute Eosinophils 0.0 Absolute Basophils 0.1 VBG pH VBG pCO2 VBG HCO3 VBG Base Excess Sodium 138.7 Potassium 4.3 Chloride 98 Carbon Dioxide 33 H Anion Gap 8 BUN 13 Creatinine 0.78 Est GFR ( Amer) > 60 Est GFR (Non-Af Amer) > 60 Glucose 109 Lactic Acid 2.1 Calcium 8.6 Total Bilirubin 0.6 AST 62 H ALT 77 H Alkaline Phosphatase 117 Total Protein 6.7 Albumin 3.7 07/09/18 07/09/18 04:25 10:25 WBC RBC Hgb Hct MCV MCH MCHC RDW Plt Count Seg Neutrophils % Lymphocytes % Monocytes % Eosinophils % Basophils % Absolute Neutrophils Absolute Lymphocytes Absolute Monocytes Absolute Eosinophils Absolute Basophils VBG pH 7.37 VBG pCO2 58.0 VBG HCO3 32.6 H VBG Base Excess 5.9 Sodium Potassium Chloride Carbon Dioxide Anion Gap BUN Creatinine Est GFR ( Amer) Est GFR (Non-Af Amer) Glucose Lactic Acid 1.3 Calcium Total Bilirubin AST ALT Alkaline Phosphatase Total Protein Albumin Impressions: Chest X-Ray 07/09/18 04:10 IMPRESSION: No significant change. Assessment & Plan - Diagnosis (1) Acute respiratory failure with hypoxia Is this a current diagnosis for this admission?: Yes Plan: We will continue aggressive treatment of underlying pneumonia. Hopefully once this improves we will be able to get her off oxygen. She does have small bilateral pleural effusions which have been chronic. (2) Pneumonia Qualifiers: Pneumonia type: due to unspecified organism Laterality: unspecified laterality Lung location: unspecified part of lung Qualified Code(s): J18.9 - Pneumonia, unspecified organism Is this a current diagnosis for this admission?: Yes Plan: Continue broad-spectrum IV antibiotics with cultures pending. Most likely gram- positive in origin. (4) Constipation due to opioid therapy Is this a current diagnosis for this admission?: Yes Plan: Continue amitzia (5) Cough Is this a current diagnosis for this admission?: Yes (6) Intractable pain Is this a current diagnosis for this admission?: Yes Plan: Home pain medication and as needed Dilaudid (7) Malignant pleural effusion Is this a current diagnosis for this admission?: Yes Plan: These appear stable. (8) Metastatic breast cancer Is this a current diagnosis for this admission?: Yes Plan: He has been treated with Xeloda and whole brain radiation with favorable response oncology will be consulted
[2018-07-09] MEDS: VANCOMYCIN HCL 1,250 MG in DEXTROSE 5%-WATER 250 ML IV SCH (19:00)
[2018-07-09] MEDS: NORTRIPTYLINE HCL 10 MG CAPSULE PO SCH (21:09)
[2018-07-09] MEDS ORDERED: DILTIAZEM HCL 60 MG TABLET PO ONE (23:45)
[2018-07-10] MEDS ORDERED: LORAZEPAM INJ 2 MG/1 ML VIAL IV ONE (01:45)
[2018-07-10] MEDS: IPRATROPIUM/ALBUTEROL 0.5-2.5 MG/3 ML AMPUL NEB SCH ×4 (02:21→19:24)
[2018-07-10] MEDS: HEPARIN SOD (PORCINE) 5,000 UNIT/ML 1 ML SYRINGE SUBCUT SCH ×3 (05:48→21:35)
[2018-07-10] MEDS: LANSOPRAZOLE 15 MG TAB.RAP.DR PO SCH (05:51)
[2018-07-10] MEDS: AMPICILLIN SODIUM/SULBACTAM NA 3 GM in NORMAL SALINE 100 ML IV SCH ×4 (05:52→23:59)
[2018-07-10] MEDS: HYDROMORPHONE HCL INJ/PF 2 MG/ML AMPULE IV PRN ×3 (06:04→21:41)
[2018-07-10] MEDS: VANCOMYCIN HCL 1,250 MG in DEXTROSE 5%-WATER 250 ML IV SCH ×2 (06:56→21:34)
[2018-07-10 07:17] LABS: ABSOLUTE LYMPHOCYTES (AUTO) 0.9 10^3/uL (0.5-4.7); ABSOLUTE MONOCYTES (AUTO) 1.4 10^3/uL (0.1-1.4); ABSOLUTE NEUT (AUTO) 13.7 10^3/uL (1.7-8.2); BASOPHILS % (AUTO) 0.2 % (0-2); EOSINOPHILS % (AUTO) 0.1 % (0-6); HEMATOCRIT 29.1 % (36.0-47.0); HEMOGLOBIN 9.8 g/dL (12.0-15.5); LYMPHOCYTES % (AUTO) 5.4 % (13-45); MEAN CORPUSCULAR HEMOGLOBIN 33.1 pg (27.0-33.4); MEAN CORPUSCULAR HGB CONC 33.6 g/dL (32.0-36.0); MEAN CORPUSCULAR VOLUME 99 fl (80-97); MONOCYTES % (AUTO) 8.6 % (3-13); PLATELET COUNT 277 10^3/uL (150-450); RED BLOOD COUNT 2.95 10^6/uL (3.72-5.28); RED CELL DISTRIBUTION WIDTH 16.5 % (11.5-14.0); SEGMENTED NEUTROPHILS % (AUTO) 85.7 % (42-78); TOTAL CELLS COUNTED % (AUTO) 100 %; WHITE BLOOD COUNT 15.9 10^3/uL (4.0-10.5)
[2018-07-10 07:33] LABS: ANION GAP 6 (5-19); BLOOD UREA NITROGEN 11 mg/dL (7-20); CALCIUM 8.3 mg/dL (8.4-10.2); CARBON DIOXIDE 33 mmol/L (22-30); CHLORIDE 98 mmol/L (98-107); GLUCOSE 100 mg/dL (75-110); POTASSIUM 5.3 mmol/L (3.6-5.0); SODIUM 136.8 mmol/L (137-145)
[2018-07-10] MEDS: MODAFINIL 100 MG TABLET PO SCH (10:00)
[2018-07-10] MEDS: OXYCODONE HCL SR 10 MG TABLET PO SCH ×2 (10:40→21:34)
--- NOTE | 2018-07-10 10:49 | PDOC CONSULTATION ---
Consultation Consult Date: 07/10/18 Consult reason:: Hematology/Oncology consultation was requested for patient with cancer and dyspnea. History of Present Illness Admission Date/PCP: 07/09/18 05:56 MARTINEZ MORATAYA MD History of Present Illness: EFFIE LOUIS is a 38 year old female with known history of stage IV breast cancer now with metastatic lesions to the chest known over the last year or so. She is currently on Xeloda. And actually having a very good response to therapy, she also has brain metastasis, most recent imaging done of the brain about 2 months ago indicated overall complete response to previous whole brain radiation. This is her third admission within the last 2 weeks for the same complaints. She is now on BiPAP but is complaining that she cannot stand to be on the mask all the time. Nurses report that she has been very restless and taking her mask off repeatedly. She is currently quite confused and does not fully understand the severity of her breathing. Nurses report that the one-time dose of Ativan helped last night. She has dilaudid PRN, but nurses ask if morphine would help her breathing better. She previously told me that she did not like taking her long-acting pain medication at home, as she did not feel it was helping her, but her pain was markedly increased on admission, most likely because she was not taking her pain medications properly. Past Medical History Cardiac Medical History: Denies: Coronary Artery Disease, Myocardial Infarction, Hypertension Pulmonary Medical History: Reports: Asthma - TEENAGER, Pneumonia - recently d/c'd 05/10/17, Respiratory Failure Denies: Bronchitis, Chronic Obstructive Pulmonary Disease (COPD), Tuberculosis Neurological Medical History: Reports: Migraine, Seizures Endocrine Medical History: Denies: Diabetes Mellitus Type 1, Diabetes Mellitus Type 2 Malignancy Medical History: Reports: Brain Cancer, Breast Cancer - right mastectomy. With metastases to brain and lungs and pleural fluid, Lung Cancer GI Medical History: Reports: Gastroesophageal Reflux Disease Denies: Cirrhosis, Hepatitis, Hiatal Hernia Musculoskeltal Medical History: Reports: Fibromyalgia Denies: Arthritis Skin Medical History: Denies: Eczema, Psoriasis Psychiatric Medical History: Denies: Depression Hematology: Denies: Anemia, Sickle Cell Disease, Bleeding Tendencies Past Surgical History Past Surgical History: Reports: Amputation, Section - x2, Cholecystectomy, Mastectomy - Right right mastectomy with axillary node dissection, Orthopedic Surgery, Tonsillectomy, Tubal Ligation, Vascular Surgery - Left chest wall port Social History Lives with: Family Smoking Status: Never Smoker Frequency of Alcohol Use: Occasional Hx Recreational Drug Use: No Drugs: None Hx Prescription Drug Abuse: No - Advance Directive Resuscitation Status: Full Code Family History Family History: DM Family History: No change from prior admission. Parental Family History Reviewed: No Children Family History Reviewed: No Sibling(s) Family History Reviewed.: No Medication/Allergy Home Medications: Esomeprazole Magnesium [Nexium 24Hr] 20 mg PO DAILY 07/09/18 Nortriptyline HCl [Pamelor 10 Mg Capsule] 10 mg PO QHS 07/09/18 Oxycodone HCl [Oxy-Ir 5 mg Tablet] 40 mg PO Q4HP PRN 07/09/18 Allergies/Adverse Reactions: Adhesive Bandage * [Adhesive Bandage] Allergy (Mild, Verified 06/30/18 11:25) Generalized rash adhesive tape [Adhesive Tape] Allergy (Mild, Verified 06/30/18 11:25) Generalized rash bologne Allergy (Uncoded 07/06/18 03:56) Review of Systems ROS unobtainable: Due to mental status Physical Exam Vital Signs: Temp Pulse Resp BP Pulse Ox 98.2 F 112 H 21 H 105/82 96 07/10/18 03:33 07/10/18 07:49 07/10/18 07:49 07/10/18 03:33 07/10/18 07:49 Intake & Output 07/09/18 07/10/18 07/11/18 06:59 06:59 06:59 Intake Total 1018 350 Balance 1018 350 Weight 73.8 kg General appearance: PRESENT: well-developed, well-nourished Exam: 38 year old female. Family is at bedside. Head exam: PRESENT: normocephalic Mouth exam: PRESENT: moist Respiratory exam: PRESENT: other - Marked respiratory distress with audible wheezes. Cardiovascular exam: PRESENT: other - Heart sounds obscured by breath sounds. Neurological exam: PRESENT: altered, awake Psychiatric exam: PRESENT: other - She is restless, but quite confused. Skin exam: PRESENT: pallor Results Laboratory Results: 07/10/18 06:45 07/10/18 06:45 07/09/18 07/10/18 07/10/18 10:25 06:45 06:45 WBC 15.9 H RBC 2.95 L Hgb 9.8 L Hct 29.1 L MCV 99 H MCH 33.1 MCHC 33.6 RDW 16.5 H Plt Count 277 Seg Neutrophils % 85.7 H Lymphocytes % 5.4 L Monocytes % 8.6 Eosinophils % 0.1 Basophils % 0.2 Absolute Neutrophils 13.7 H Absolute Lymphocytes 0.9 Absolute Monocytes 1.4 Absolute Eosinophils 0.0 Absolute Basophils 0.0 Sodium 136.8 L Potassium 5.3 H Chloride 98 Carbon Dioxide 33 H Anion Gap 6 BUN 11 Creatinine 0.58 Est GFR ( Amer) > 60 Est GFR (Non-Af Amer) > 60 Glucose 100 Lactic Acid 1.3 Calcium 8.3 L Impressions: Chest X-Ray 07/09/18 04:10 IMPRESSION: No significant change. Assessment & Plan - Diagnosis (1) Acute respiratory failure with hypoxia Is this a current diagnosis for this admission?: Yes Plan: If her mental status and ABGs do not improve with the BiPAP, then she may require intubation. (2) Pneumonia Qualifiers: Pneumonia type: due to unspecified organism Laterality: unspecified laterality Lung location: unspecified part of lung Qualified Code(s): J18.9 - Pneumonia, unspecified organism Is this a current diagnosis for this admission?: Yes Plan: Conitinue antibiotics. (3) Intractable pain Is this a current diagnosis for this admission?: Yes Plan: Her pain meds were not ordered correctly. She was supposed to be on OxyContin 60 mg BID, however, she was on 40 mg earlier this week. Currently she is quite confused, so I will only start OxyContin 20 mg BID and continue PRN doses. If her mental status improves, consider increasing the long-acting pain meds again. Unclear if her agitation is partly narcotic withdraw or hypercapnea, or both.
--- NOTE | 2018-07-10 13:00 | PDOC PROGRESS REPORT ---
Subjective Progress Note for:: 07/10/18 Subjective:: Patient seen resting in bed. She is mildly tachypneic. She is awake, holding the BIPAP mask to her face while trying to eat her breakfast. She is somewhat agitated and confused. Her is at the bedside. She is complaining of pain in the lower right chest wall . She denies fevers or chills overnight. Nursing report she was agitated overnight but improved with IV ativan and BIPAP mask. Review of systems are unobtainable due to patient's mentation Reason For Visit: STAGE 4 BREAST CA C METS,PNEUMONIA Physical Exam Vital Signs: Temp Pulse Resp BP Pulse Ox 98.2 F 112 H 21 H 105/82 96 07/10/18 03:33 07/10/18 07:49 07/10/18 07:49 07/10/18 03:33 07/10/18 07:49 Intake & Output 07/09/18 07/10/18 07/11/18 06:59 06:59 06:59 Intake Total 1018 350 Balance 1018 350 Weight 73.8 kg General appearance: PRESENT: mild distress, well-developed, well-nourished, other - on BIPAP Head exam: PRESENT: atraumatic, normocephalic Eye exam: PRESENT: conjunctiva pink, EOMI, PERRLA. ABSENT: scleral icterus Ear exam: PRESENT: normal external ear exam Mouth exam: PRESENT: moist, tongue midline Neck exam: ABSENT: carotid bruit, JVD, lymphadenopathy, thyromegaly Respiratory exam: PRESENT: accessory muscle use, crackles, decreased breath sounds, tachypnea - right base Cardiovascular exam: PRESENT: RRR. ABSENT: diastolic murmur, rubs, systolic murmur Pulses: PRESENT: normal dorsalis pedis pul Vascular exam: PRESENT: normal capillary refill GI/Abdominal exam: PRESENT: normal bowel sounds, soft. ABSENT: distended, guarding, mass, organolmegaly, rebound, tenderness Rectal exam: PRESENT: deferred Extremities exam: PRESENT: full ROM. ABSENT: calf tenderness, clubbing, pedal edema Musculoskeletal exam: PRESENT: full ROM, normal inspection Neurological exam: PRESENT: alert, altered, awake, oriented to person, CN II-XII grossly intact Psychiatric exam: PRESENT: agitated, anxious Focused psych exam: PRESENT: restlessness Skin exam: PRESENT: dry, intact, warm. ABSENT: cyanosis, rash Results Laboratory Results: 07/10/18 06:45 07/10/18 06:45 07/10/18 07/10/18 06:45 06:45 WBC 15.9 H RBC 2.95 L Hgb 9.8 L Hct 29.1 L MCV 99 H MCH 33.1 MCHC 33.6 RDW 16.5 H Plt Count 277 Seg Neutrophils % 85.7 H Lymphocytes % 5.4 L Monocytes % 8.6 Eosinophils % 0.1 Basophils % 0.2 Absolute Neutrophils 13.7 H Absolute Lymphocytes 0.9 Absolute Monocytes 1.4 Absolute Eosinophils 0.0 Absolute Basophils 0.0 Sodium 136.8 L Potassium 5.3 H Chloride 98 Carbon Dioxide 33 H Anion Gap 6 BUN 11 Creatinine 0.58 Est GFR ( Amer) > 60 Est GFR (Non-Af Amer) > 60 Glucose 100 Calcium 8.3 L Impressions: Chest X-Ray 07/09/18 04:10 IMPRESSION: No significant change. Assessment & Plan - Diagnosis (1) Acute respiratory failure with hypoxia Is this a current diagnosis for this admission?: Yes Plan: She is mildly tachypneic this am. She needs to wear bipap more. Will order ati van [id number] to facilitate bipap compliance (2) Pneumonia Qualifiers: Pneumonia type: due to unspecified organism Laterality: unspecified laterality Lung location: unspecified part of lung Qualified Code(s): J18.9 - Pneumonia, unspecified organism Is this a current diagnosis for this admission?: Yes Plan: Continue broad-spectrum IV antibiotics with cultures pending. Most likely gram- positive in origin. Blood cultures are negative (3) Chest wall pain Is this a current diagnosis for this admission?: Yes Plan: Continue current oral long acting pain medications as ordered by Dr Mendoza and prn analgesics (4) Constipation due to opioid therapy Is this a current diagnosis for this admission?: Yes Plan: Continue amitzia (5) Cough Is this a current diagnosis for this admission?: Yes (6) Intractable pain Is this a current diagnosis for this admission?: Yes Plan: Home pain medication and as needed Dilaudid (7) Malignant pleural effusion Is this a current diagnosis for this admission?: Yes Plan: These appear stable. (8) Metastatic breast cancer Is this a current diagnosis for this admission?: Yes Plan: He has been treated with Xeloda and whole brain radiation with favorable response oncology will be consulted - Time Time Spent with patient: 25-34 minutes Total Critical Time (Minutes): 20 Medications reviewed and adjusted accordingly: Yes
[2018-07-10] MEDS: LORAZEPAM INJ 2 MG/1 ML VIAL IV PRN ×2 (14:09→23:59)
[2018-07-10] MEDS: NORTRIPTYLINE HCL 10 MG CAPSULE PO SCH (21:34)
[2018-07-11] MEDS: IPRATROPIUM/ALBUTEROL 0.5-2.5 MG/3 ML AMPUL NEB SCH ×4 (02:40→20:28)
[2018-07-11] MEDS: HEPARIN SOD (PORCINE) 5,000 UNIT/ML 1 ML SYRINGE SUBCUT SCH ×2 (05:18→15:27)
[2018-07-11] MEDS: AMPICILLIN SODIUM/SULBACTAM NA 3 GM in NORMAL SALINE 100 ML IV SCH (05:37)
[2018-07-11] MEDS: LANSOPRAZOLE 15 MG TAB.RAP.DR PO SCH (05:42)
[2018-07-11 06:28] LABS: ABSOLUTE BASOPHILS # (AUTO) 0.1 10^3/uL (0.0-0.2); ABSOLUTE LYMPHOCYTES (AUTO) 1.2 10^3/uL (0.5-4.7); ABSOLUTE MONOCYTES (AUTO) 1.5 10^3/uL (0.1-1.4); ABSOLUTE NEUT (AUTO) 11.1 10^3/uL (1.7-8.2); BASOPHILS % (AUTO) 0.5 % (0-2); EOSINOPHILS % (AUTO) 0.3 % (0-6); HEMATOCRIT 30.6 % (36.0-47.0); HEMOGLOBIN 10.1 g/dL (12.0-15.5); LYMPHOCYTES % (AUTO) 8.5 % (13-45); MEAN CORPUSCULAR HGB CONC 33.1 g/dL (32.0-36.0); MEAN CORPUSCULAR VOLUME 100 fl (80-97); PLATELET COUNT 293 10^3/uL (150-450); RED BLOOD COUNT 3.07 10^6/uL (3.72-5.28); RED CELL DISTRIBUTION WIDTH 16.6 % (11.5-14.0); SEGMENTED NEUTROPHILS % (AUTO) 79.7 % (42-78); TOTAL CELLS COUNTED % (AUTO) 100 %; WHITE BLOOD COUNT 13.9 10^3/uL (4.0-10.5)
[2018-07-11] MEDS: VANCOMYCIN HCL 1,250 MG in DEXTROSE 5%-WATER 250 ML IV SCH (06:46)
[2018-07-11 06:53] LABS: ANION GAP 7 (5-19); BLOOD UREA NITROGEN 10 mg/dL (7-20); CALCIUM 8.8 mg/dL (8.4-10.2); CARBON DIOXIDE 36 mmol/L (22-30); CHLORIDE 94 mmol/L (98-107); GLUCOSE 105 mg/dL (75-110); SODIUM 137.4 mmol/L (137-145); VANCOMYCIN,TROUGH 7.3 ug/mL (5.0-20.0)
[2018-07-11] MEDS: HYDROMORPHONE HCL INJ/PF 2 MG/ML AMPULE IV PRN ×2 (06:55→20:20)
--- NOTE | 2018-07-11 08:22 | PDOC PROGRESS REPORT ---
Subjective Progress Note for:: 07/11/18 Subjective:: Patient is sleeping and has CPAP in place. Family is at bedside. They report that she has done much better with the ativan to help calm her down. She was able to eat only a little last night. She told her family that she was afraid to go to sleep, but Family reports that she slept much better last night with the ativan. ROS: Unable to obtain due to mental status. Reason For Visit: STAGE 4 BREAST CA C METS,PNEUMONIA Physical Exam Vital Signs: Temp Pulse Resp BP Pulse Ox 97.1 F 112 H 21 H 113/75 97 07/11/18 07:19 07/11/18 07:50 07/11/18 07:50 07/11/18 07:19 07/11/18 07:50 Intake & Output 07/10/18 07/11/18 07/12/18 06:59 06:59 06:59 Intake Total 1018 1100 Balance 1018 1100 Weight 73.8 kg 73.4 kg General appearance: PRESENT: well-developed, well-nourished Head exam: PRESENT: normocephalic Respiratory exam: PRESENT: other - Course lung sounds with crackles throughout. Prolonged expiratory phase. CPAP in place. Cardiovascular exam: PRESENT: other - Heart sounds obscured by breath sounds. Skin exam: PRESENT: pallor Results Laboratory Results: 07/11/18 05:45 07/11/18 05:45 07/11/18 07/11/18 05:45 05:45 WBC 13.9 H RBC 3.07 L Hgb 10.1 L Hct 30.6 L MCV 100 H MCH 33.0 MCHC 33.1 RDW 16.6 H Plt Count 293 Seg Neutrophils % 79.7 H Lymphocytes % 8.5 L Monocytes % 11.0 Eosinophils % 0.3 Basophils % 0.5 Absolute Neutrophils 11.1 H Absolute Lymphocytes 1.2 Absolute Monocytes 1.5 H Absolute Eosinophils 0.0 Absolute Basophils 0.1 Sodium 137.4 Potassium 5.0 Chloride 94 L Carbon Dioxide 36 H Anion Gap 7 BUN 10 Creatinine 0.47 L Est GFR ( Amer) > 60 Est GFR (Non-Af Amer) > 60 Glucose 105 Calcium 8.8 Magnesium 2.0 Impressions: Chest X-Ray 07/09/18 04:10 IMPRESSION: No significant change. Assessment & Plan - Diagnosis (1) Acute respiratory failure with hypoxia Is this a current diagnosis for this admission?: Yes Plan: Continue supportive care. (2) Pneumonia Qualifiers: Pneumonia type: due to unspecified organism Laterality: unspecified laterality Lung location: unspecified part of lung Qualified Code(s): J18.9 - Pneumonia, unspecified organism Is this a current diagnosis for this admission?: Yes Plan: On vanc and ampicillin/sulbactam (3) Intractable pain Is this a current diagnosis for this admission?: Yes Plan: She is on some long-acting pain medication as well as short-acting. Will c ontinue to adjust as appropriate. (4) Breast cancer metastasized to brain Is this a current diagnosis for this admission?: Yes Plan: Treatment currently on hold. All indication is that the cancer is NOT the underlying lung problem currently, but will continue to monitor.
[2018-07-11] MEDS: MODAFINIL 100 MG TABLET PO SCH (09:33)
[2018-07-11] MEDS: OXYCODONE HCL SR 10 MG TABLET PO SCH (09:33)
[2018-07-11] MEDS ORDERED: FUROSEMIDE INJ/PF 20 MG/2 ML SDV IV ONE (10:26)
[2018-07-11] MEDS ORDERED: PHENYLEPHRINE HCL INJ/PF 10 MG/1 ML SDV ONE (10:27)
[2018-07-11] MEDS ORDERED: PROPOFOL 1,000 MG/100 ML INFUS..BTL IV ONE (13:19)
[2018-07-11] MEDS ORDERED: EPHEDRINE SULFATE INJ 50 MG/1 ML AMPULE ONE (13:33)
[2018-07-11] MEDS ORDERED: KETAMINE HCL INJ 500 MG/10 ML VIAL ONE (13:33)
[2018-07-11] MEDS: MIDAZOLAM HCL 50 MG/100 ML RTUINJ IV PRN ×2 (13:45→19:12)
[2018-07-11] MEDS ORDERED: VANCOMYCIN HCL 1,250 MG in DEXTROSE 5%-WATER 250 ML IV SCH (14:00)
[2018-07-11] MEDS ORDERED: PROPOFOL INJ 200 MG/20 ML VIAL IV ONE (14:07)
[2018-07-11] MEDS: PIPERACILLIN SODIUM/TAZOBACTAM 3.375 GM in NORMAL SALINE 100 ML IV SCH ×2 (15:27→18:15)
[2018-07-11 16:12] LABS: ARTERIAL BLOOD BASE EXCESS 7.1 mmol/L; ARTERIAL BLOOD FIO2 60%; ARTERIAL BLOOD H2CO3 1.82 mmol/L (1.05-1.35); ARTERIAL BLOOD HCO3 33.9 mmol/L (20-24); ARTERIAL BLOOD O2 SATURATION 96.9 % (94-98); ARTERIAL BLOOD PCO2 60.3 mmHg (35-45); ARTERIAL BLOOD PH 7.37 (7.35-7.45); ARTERIAL BLOOD PO2 94.9 mmHg (80-100); ARTERIAL BLOOD TOTAL CO2 35.8 mmol/L (21-25)
--- NOTE | 2018-07-11 16:13 | Operative Report ---
Bedside Procedure - History of Present Illness Indication for Procedure: venous access Surgeon: IONA DODD - Central Line Right Femoral Consent obtained: Yes Central line pre-insertion: Sterile PPE donned Central line size (Fr.): 16 Central line lumen type: Triple Anesthetic type: 1% Lidocaine mL's of anesthesia: 5 Ultrasound guided: No CM at insertion site: 20 Line secured with sutures: Yes Central line post-insertion: Blood return from lumens, Sutured Number of attempts: 1 Complications: No Notes: 07/11/18 16:12 unable to pass wire during a rt subclavian and rt internal jugular pt could not have left side line due to portacath. therefor rt femoral line place.
[2018-07-11] MEDS ORDERED: LIDOCAINE 1% INJ-PF (10 MG/ML) 30 ML SDV ONE (16:49)
--- NOTE | 2018-07-11 16:52 | RADIOLOGY REPORT (SQ) ---
EXAM DESCRIPTION: CHEST SINGLE VIEW COMPLETED DATE/TIME: 07/11/2018 4:27 pm REASON FOR STUDY: ETT TUBE AND NGT PLACEMENT COMPARISON: 130 EXAM PARAMETERS: NUMBER OF VIEWS: One view TECHNIQUE: Single frontal radiograph of the chest. RADIATION DOSE: N/A LIMITATIONS: None. FINDINGS: TEMPORARY SUPPORT DEVICES:ETT in expected location. NG tube courses below the aimee-diaphr agm in to the stomach. Central venous access catheter tip is in expected location. LUNGS AND PLEURA: bilateral pleural effusions. Bibasilar parenchymal opacities left greater than righ t. No masses. No pneumothorax. MEDIASTINUM AND HILAR STRUCTURES: No masses. Contour normal. HEART AND VASCULAR STRUCTURES: Heart normal in size. normal vascularity. Aorta normal for age. BONES: No acute findings. OTHER: No other significant finding. IMPRESSION: Bilateral pleural effusions right greater than left. Diffuse opacities left greater jann n right. SUPPORT DEVICE(S) IN EXPECTED LOCATIONS. TECHNICAL DOCUMENTATION: JOB ID: [id number] Seen- All Rights Reserved Reading location - IP/workstation name: [email or web address]
--- NOTE | 2018-07-11 17:28 | PDOC CONSULTATION ---
Consultation Consult Date: 07/11/18 Attending physician:: ROBBIE LEONARDO Consult reason:: acute resp failure;metastatic cancer;pna History of Present Illness Admission Date/PCP: 07/09/18 05:56 MARTINEZ MORATAYA MD History of Present Illness: EFFIE LOUIS is a 38 year old female Past Medical History Cardiac Medical History: Denies: Coronary Artery Disease, Myocardial Infarction, Hypertension Pulmonary Medical History: Reports: Asthma - TEENAGER, Pneumonia - recently d/c'd 05/10/17, Respiratory Failure Denies: Bronchitis, Chronic Obstructive Pulmonary Disease (COPD), Tuberculosis Neurological Medical History: Reports: Migraine, Seizures Endocrine Medical History: Denies: Diabetes Mellitus Type 1, Diabetes Mellitus Type 2 Malignancy Medical History: Reports: Brain Cancer, Breast Cancer - right mastectomy. With metastases to brain and lungs and pleural fluid, Lung Cancer GI Medical History: Reports: Gastroesophageal Reflux Disease Denies: Cirrhosis, Hepatitis, Hiatal Hernia Musculoskeltal Medical History: Reports: Fibromyalgia Denies: Arthritis Skin Medical History: Denies: Eczema, Psoriasis Psychiatric Medical History: Denies: Depression Hematology: Denies: Anemia, Sickle Cell Disease, Bleeding Tendencies Past Surgical History Past Surgical History: Reports: Amputation, Section - x2, Cholecystectomy, Mastectomy - Right right mastectomy with axillary node dissection, Orthopedic Surgery, Tonsillectomy, Tubal Ligation, Vascular Surgery - Left chest wall port Social History Information Source: [facility] Records Lives with: Family Smoking Status: Never Smoker Frequency of Alcohol Use: Occasional Hx Recreational Drug Use: No Drugs: None Hx Prescription Drug Abuse: No - Advance Directive Resuscitation Status: Full Code Family History Family History: DM Parental Family History Reviewed: No Children Family History Reviewed: No Sibling(s) Family History Reviewed.: No Medication/Allergy Home Medications: Esomeprazole Magnesium [Nexium 24Hr] 20 mg PO DAILY 07/09/18 Nortriptyline HCl [Pamelor 10 Mg Capsule] 10 mg PO QHS 07/09/18 Oxycodone HCl [Oxy-Ir 5 mg Tablet] 40 mg PO Q4HP PRN 07/09/18 Allergies/Adverse Reactions: Adhesive Bandage * [Adhesive Bandage] Allergy (Mild, Verified 06/30/18 11:25) Generalized rash adhesive tape [Adhesive Tape] Allergy (Mild, Verified 06/30/18 11:25) Generalized rash bologne Allergy (Uncoded 07/06/18 03:56) Review of Systems ROS unobtainable: Due to endotracheal tube Physical Exam Vital Signs: Temp Pulse Resp BP Pulse Ox 99.9 F 120 H 16 85/57 L 100 07/11/18 16:00 07/11/18 16:00 07/11/18 14:00 07/11/18 16:00 07/11/18 16:00 Intake & Output 07/10/18 07/11/18 07/12/18 06:59 06:59 06:59 Intake Total 1018 1100 307 Output Total 900 Balance 1018 1100 -593 Weight 73.8 kg 73.4 kg General appearance: PRESENT: no acute distress, disheveled, well-developed, well-nourished Head exam: PRESENT: atraumatic, normocephalic Eye exam: PRESENT: conjunctiva pale, nystagmus Mouth exam: PRESENT: dry mucosa, neck supple, tongue midline, other - ET Neck exam: ABSENT: carotid bruit, JVD, lymphadenopathy, thyromegaly, tracheal deviation, tracheostomy Respiratory exam: PRESENT: decreased breath sounds, prolonged expiratory phas, rales, rhonchi, unlabored. ABSENT: retraction Cardiovascular exam: PRESENT: RRR, +S1, +S2 Pulses: PRESENT: normal radial pulses Gentrourinary exam: PRESENT: indwelling catheter Extremities exam: ABSENT: calf tenderness, clubbing, joint swelling, pedal edema Musculoskeletal exam: ABSENT: deformity, dislocation Neurological exam: ABSENT: awake Skin exam: PRESENT: dry, warm Results Laboratory Results: 07/11/18 05:45 07/11/18 05:45 07/11/18 07/11/18 07/11/18 05:45 05:45 16:01 WBC 13.9 H RBC 3.07 L Hgb 10.1 L Hct 30.6 L MCV 100 H MCH 33.0 MCHC 33.1 RDW 16.6 H Plt Count 293 Seg Neutrophils % 79.7 H Lymphocytes % 8.5 L Monocytes % 11.0 Eosinophils % 0.3 Basophils % 0.5 Absolute Neutrophils 11.1 H Absolute Lymphocytes 1.2 Absolute Monocytes 1.5 H Absolute Eosinophils 0.0 Absolute Basophils 0.1 Carbonic Acid 1.82 H HCO3/H2CO3 Ratio 18:1 ABG pH 7.37 ABG pCO2 60.3 H ABG pO2 94.9 ABG HCO3 33.9 H ABG O2 Saturation 96.9 ABG Base Excess 7.1 FiO2 60% Sodium 137.4 Potassium 5.0 Chloride 94 L Carbon Dioxide 36 H Anion Gap 7 BUN 10 Creatinine 0.47 L Est GFR ( Amer) > 60 Est GFR (Non-Af Amer) > 60 Glucose 105 Calcium 8.8 Magnesium 2.0 Impressions: Chest X-Ray 07/11/18 00:00 IMPRESSION: Bilateral pleural effusions right greater than left. Diffuse opacities left greater than right. SUPPORT DEVICE(S) IN EXPECTED LOCATIONS. Assessment & Plan - Diagnosis (1) Pleural effusion Is this a current diagnosis for this admission?: Yes Plan: consider thoracentesis (2) Acute respiratory failure with hypoxia Is this a current diagnosis for this admission?: Yes Plan: ventilate for acceptable ph (3) Breast cancer metastasized to brain Qualifiers: Laterality: right Qualified Code(s): C50.911 - Malignant neoplasm of unspecified site of right female breast; C79.31 - Secondary malignant neoplasm of brain Is this a current diagnosis for this admission?: Yes Plan: as per oncology - Time Total Critical Time (Minutes): 55
--- NOTE | 2018-07-11 17:31 | Operative Report ---
Operative Report DATE OF SURGERY: 07/11/18 Operative Report: 38-year-old female with purulent exudate and respiratory failure but no specific etiology etiologic agent subsequently it was decided she should undergo fiberoptic bronchoscopy with bronchoalveolar lavage in an attempt to find out what the etiology might come forth. Using T size [place] scope her tracheobronchial tree was explored there is no splaying of the luciana there is purulent exudate in the right mainstem bronchus there is also purulent exudate in the right bronchus intermedius as well as the left upper lobe left lower lobe and lingula these were aspirated and sent to the lab for appropriate cultures and studies PREOPERATIVE DIAGNOSIS: pna POSTOPERATIVE DIAGNOSIS: pna OPERATION: Fiberoptic bronchoscopy with bronchoalveolar lavage SURGEON: DERRELL GONSALVES ANESTHESIA: GA TISSUE REMOVED OR ALTERED: lavage fluid COMPLICATIONS: w/o ESTIMATED BLOOD LOSS: n/a
--- NOTE | 2018-07-11 17:59 | PDOC TRANSFER SUMMARY ---
General Admission Date/PCP: 07/09/18 05:56 MARTINEZ MORATAYA MD Resuscitation Status: Full Code - Transfer Diagnosis (1) Acute respiratory failure with hypoxia Is this a current diagnosis for this admission?: Yes (2) Pleural effusion Is this a current diagnosis for this admission?: Yes (3) Empyema lung Is this a current diagnosis for this admission?: Yes (4) Metastatic breast cancer Is this a current diagnosis for this admission?: Yes - Transfer Medications Home Medications: Esomeprazole Magnesium [Nexium 24Hr] 20 mg PO DAILY 07/09/18 Nortriptyline HCl [Pamelor 10 Mg Capsule] 10 mg PO QHS 07/09/18 Oxycodone HCl [Oxy-Ir 5 mg Tablet] 40 mg PO Q4HP PRN 07/09/18 Transfer Medications: Current Medications Acetaminophen (Tylenol 325 Mg Tablet) 650 mg PO Q4HP PRN PRN Reason: pain or temp greater than 101F Stop: 08/08/18 05:35 Albuterol/Ipratropium (Duoneb 3 Ml Ampul) 3 ml NEB [id number] PRN PRN Reason: SHORTNESS OF BREATH Stop: 08/08/18 05:35 Albuterol/Ipratropium (Duoneb 3 Ml Ampul) 3 ml NEB RTQ6 АНДРЕЙ Stop: 08/08/18 07:59 Last Admin: 07/11/18 14:08 Dose: 3 ml Documented by: Diphenhydramine HCl (Benadryl Inj 50 Mg/1 Ml Vial) 12.5 mg IV Q6HP PRN PRN Reason: ITCHING Stop: 08/08/18 05:40 Heparin Sodium (Porcine) (Heparin Inj 5,000 Units/Ml 1 Ml Syringe) 5,000 unit SUBCUT Q8 АНДРЕЙ Stop: 08/08/18 05:59 Last Admin: 07/11/18 15:27 Dose: Not Given Documented by: Heparin Sodium (Porcine) (Heparin Flush 10 Unit/Ml 5 Ml Disp.Syrg) 70 unit IV .AFTER EACH USE PRN PRN Reason: AFTER EACH INTERMITTENT USE Stop: 08/08/18 12:25 Hydromorphone HCl (Dilaudid Inj/Pf 2 Mg/Ml Ampule) 2 mg IV Q3HP PRN PRN Reason: FOR BREAKTHROUGH PAIN Stop: 07/16/18 05:40 Last Admin: 07/11/18 06:55 Dose: 2 mg Documented by: Vancomycin HCl 1,250 mg/ (Dextrose) 250 mls @ 166.667 mls/hr IV Q8 [facility] Stop: 07/18/18 13:59 Last Admin: 07/11/18 16:33 Dose: 833.35 mg/hr, 166.67 mls/hr Documented by: Piperacillin Sod/Tazobactam (Sod 3.375 gm/ Sodium Chloride) 100 mls @ 200 mls/hr IV Q6 [facility] Stop: 07/18/18 12:59 Last Admin: 07/11/18 15:27 Dose: Not Given Documented by: Midazolam HCl (Versed Rtu 50 Mg/100 Ml Premix Bag) 50 mg in 100 mls @ 0 mls/hr IV CONTINUOUS PRN; Protocol PRN Reason: THIS MED IS NOT "PRN" Stop: 07/18/18 13:50 Last Titration: 07/11/18 16:35 Dose: 12 mg/hr, 24 mls/hr Documented by: Influenza Virus Vaccine Quadrival (Fluarix Adlt Quad Vac 0.5 Ml Syr) 0.5 ml IM .DISCHARGE PRN PRN Reason: THIS MED IS NOT "PRN" Stop: 08/08/18 09:58 Lansoprazole (Prevacid 15 Mg Odt Tablet) 15 mg PO Q6AM [facility] Stop: 08/08/18 05:59 Last Admin: 07/11/18 05:42 Dose: Not Given Documented by: Modafinil (Provigil 100 Mg Tablet) 100 mg PO DAILY [facility] Stop: 07/16/18 09:59 Last Admin: 07/11/18 09:33 Dose: 100 mg Documented by: Ondansetron HCl (Zofran Inj/Pf 4 Mg/2 Ml Sdv) 4 mg IV Q4HP PRN PRN Reason: NAUSEA/VOMITING Stop: 08/08/18 10:00 Last Admin: 07/09/18 10:48 Dose: 4 mg Documented by: Promethazine HCl (Phenergan Inj 25 Mg/1 Ml Vial) 12.5 mg IV Q4HP PRN PRN Reason: UNRESOLVED NAUSEA/VOMITING Stop: 08/08/18 12:27 Last Admin: 07/09/18 19:56 Dose: 12.5 mg Documented by: Sodium Chloride (Saline Flush 2.5 Ml Monoject Prefil Syrin) 2.5 ml IV Q8 АНДРЕЙ Stop: 08/08/18 05:59 Last Admin: 07/11/18 15:27 Dose: Not Given Documented by: - Allergies Allergies/Adverse Reactions: Adhesive Bandage * [Adhesive Bandage] Allergy (Mild, Verified 06/30/18 11:25) Generalized rash adhesive tape [Adhesive Tape] Allergy (Mild, Verified 06/30/18 11:25) Generalized rash bologne Allergy (Uncoded 07/06/18 03:56) Hospital Course Hospital Course: This is a 38 yr old female with a PMH of stage IV breast cancer now with metastatic lesions to the chest on capecitabine and brain mets (responded well to brain radiation) who initially presented with increasing SOB. She does have a history of recurrent pleural effusion and had a Pleur X cath placement once last year. She was found to have pneumonia and was treated for HCAP. She was started on IV antibiotics. She left AMA twice on this cuyrrent hospitalization as she had to "attend to her kids". She was previously a hospice patient but after responding to brain radiation, she reversed her code status and clearly verbalized she wants to be a FULL CODE and is not considering hospice any time soon. This has been discussed multiple times with previous providers and with her oncologist as well. She continued to deteriorate and has is not able to tolerate being off the BIPAP. Today, she had worsening distress and appeared fatigued. She was eventu ally intubated around noon time. Surgery evaluated her chest CT and recommends possible VATS. CT also shows a large pericardial effusion. Echo did not show signs of tamponade. Oncology has discussed case with Dr. Arzola (thoracic surgeon) at [facility]. She verbalized with her foster mom on the bedside that she is not opposed to any type of surgery. She had bronchoscopy done after intubation by pulmonology. Discussed with Dr. Hinojosa ([facility] merchant police) who accepted the patient. Physical Exam Vital Signs: Temp Pulse Resp BP Pulse Ox 99.9 F 120 H 16 85/57 L 100 07/11/18 16:00 07/11/18 16:00 07/11/18 14:00 07/11/18 16:00 07/11/18 16:00 Intake & Output 07/10/18 07/11/18 07/12/18 06:59 06:59 06:59 Intake Total 1018 1100 307 Output Total 900 Balance 1018 1100 -593 Weight 162 lb 11.218 oz 161 lb 13.109 oz General appearance: PRESENT: other - intubated, sedated Eye exam: PRESENT: conjunctiva pink, EOMI, PERRLA. ABSENT: scleral icterus Ear exam: PRESENT: normal external ear exam Neck exam: ABSENT: carotid bruit, JVD, lymphadenopathy, thyromegaly Respiratory exam: PRESENT: crackles, decreased breath sounds - dec BS on the bases, more decreased on the right, rhonchi. ABSENT: rales, wheezes Cardiovascular exam: PRESENT: RRR. ABSENT: diastolic murmur, rubs, systolic murmur Pulses: PRESENT: normal dorsalis pedis pul GI/Abdominal exam: PRESENT: normal bowel sounds, soft. ABSENT: distended, guarding, mass, organolmegaly, rebound, tenderness Rectal exam: PRESENT: deferred Neurological exam: PRESENT: other - intubated, sedated Results Laboratory Results: 07/11/18 05:45 07/11/18 05:45 07/11/18 07/11/18 07/11/18 05:45 05:45 16:01 WBC 13.9 H RBC 3.07 L Hgb 10.1 L Hct 30.6 L MCV 100 H MCH 33.0 MCHC 33.1 RDW 16.6 H Plt Count 293 Seg Neutrophils % 79.7 H Lymphocytes % 8.5 L Monocytes % 11.0 Eosinophils % 0.3 Basophils % 0.5 Absolute Neutrophils 11.1 H Absolute Lymphocytes 1.2 Absolute Monocytes 1.5 H Absolute Eosinophils 0.0 Absolute Basophils 0.1 Carbonic Acid 1.82 H HCO3/H2CO3 Ratio 18:1 ABG pH 7.37 ABG pCO2 60.3 H ABG pO2 94.9 ABG HCO3 33.9 H ABG O2 Saturation 96.9 ABG Base Excess 7.1 FiO2 60% Sodium 137.4 Potassium 5.0 Chloride 94 L Carbon Dioxide 36 H Anion Gap 7 BUN 10 Creatinine 0.47 L Est GFR ( Amer) > 60 Est GFR (Non-Af Amer) > 60 Glucose 105 Calcium 8.8 Magnesium 2.0 Impressions: Chest X-Ray 02/01/19 00:00 IMPRESSION: Bilateral pleural effusions right greater than left. Diffuse opacities left greater than right. SUPPORT DEVICE(S) IN EXPECTED LOCATIONS.
[2018-07-11] MEDS ORDERED: DEXAMETHASONE SOD PHOSPHATE INJ 4 MG/1 ML VIAL IV PRN (18:15)
[2018-07-11] MEDS ORDERED: DEXTROSE 5%-WATER 250 ML with NOREPINEPHRINE BITARTRATE 4 MG IV PRN ×2 (18:15)
[2018-07-11] MEDS ORDERED: NOREPINEPHRINE BITARTRATE INJ/PF 4 MG/4 ML SDV IV ONE (18:16)
[2018-07-11 18:53] LABS: FLUID TYPE BRONCHIAL WASH
[2018-07-11 18:54] LABS: FLUID APPEARANCE CLOUDY; FLUID COLOR PINK; FLUID VISCOSITY LIQUID
[2018-07-11 18:56] LABS: FLUID SOURCE LUNG
[2018-07-11 20:12] VITALS: BP 100/72
[2018-07-11] MEDS: PROMETHAZINE HCL INJ 25 MG/1 ML VIAL IV PRN (20:21)
== END 2018-07-11 21:40 | disposition short-term general hospital (02) | DRG 208 ==
LOC: ER 03:57 → EH 05:56 → 3N 09:39 → ICU 07-11 11:43
PROVIDERS: ADMIT Internal Medicine; ATTEND Internal Medicine
PROC: 5A1935Z Respiratory Ventilation, Less than 24 Consecutive Hours (ICD-10-PCS; principal; 2018-07-11)
PROC: 0B9H7ZX Drainage of Lung Lingula, Via Natural or Artificial Opening, Diagnostic (ICD-10-PCS; 2018-07-11)
PROC: 0B9G7ZX Drainage of Left Upper Lung Lobe, Via Natural or Artificial Opening, Diagnostic (ICD-10-PCS; 2018-07-11)
PROC: 06HM33Z Insertion of Infusion Device into Right Femoral Vein, Percutaneous Approach (ICD-10-PCS; 2018-07-11)
PROC: 0BH17EZ Insertion of Endotracheal Airway into Trachea, Via Natural or Artificial Opening (ICD-10-PCS; 2018-07-11)
DX: J18.9 Pneumonia, unspecified organism (principal); J96.01 Acute respiratory failure with hypoxia; J91.0 Malignant pleural effusion; C78.00 Secondary malignant neoplasm of unspecified lung; C79.89 Secondary malignant neoplasm of other specified sites; C79.31 Secondary malignant neoplasm of brain; Z99.81 Dependence on supplemental oxygen; Z79.899 Other long term (current) drug therapy; C50.911 Malignant neoplasm of unspecified site of right female breast; K21.9 Gastro-esophageal reflux disease without esophagitis; M79.7 Fibromyalgia; Z83.3 Family history of diabetes mellitus; K59.03 Drug induced constipation; T40.2X5A Adverse effect of other opioids, initial encounter; Z78.1 Physical restraint status; G89.3 Neoplasm related pain (acute) (chronic); Z90.11 Acquired absence of right breast and nipple
CPT/HCPCS: 31500; 36415; 71045; 80048; 80053; 80202; 82803; 83605; 83735; 85025; 87015; 87040; 87070; 87101; 87116; 87205; 87206; 87486; 87804; 88112; 89050; 93005; 93010; 94002; 94640; 94660; 96374; 99285; C1751; J0295; J1170; J1642; J1644; J1940; J2060; J2250; J2370; J2405; J2543; J2550; J2704; J3010; J3370; J3490; J7060; J7620